=== PATIENT | female | born 1955 | race Caucasian/White ===

== ENCOUNTER 2020-03-28 15:32 | Outpatient (CLI) | payer MEDICARE, OTHER | END 2020-03-28 15:33 | disposition home or self-care (01) | LOC: COV 15:32 | PROVIDERS: ATTEND Family Medicine | DX: R50.9 Fever, unspecified (principal); M79.10 Myalgia, unspecified site; R53.83 Other fatigue; J02.9 Acute pharyngitis, unspecified; R11.2 Nausea with vomiting, unspecified; Z20.828 Contact with and (suspected) exposure to other viral communicable diseases ==

== ENCOUNTER 2021-07-10 05:36 | Outpatient (CLI) | payer MEDICARE, OTHER | END 2021-07-10 05:37 | disposition critical access hospital (66) | LOC: EMS 05:36 | DX: R10.31 Right lower quadrant pain (principal); R11.0 Nausea | CPT/HCPCS: A0425; A0427 ==

== ENCOUNTER 2021-07-10 06:18 | Day surgery (SDC) | payer MEDICARE, OTHER ==
[2021-07-10] MEDS ORDERED: KETOROLAC 30 MG/ML VIAL IVP STA (06:45)
[2021-07-10] MEDS ORDERED: HYDROmorphone 1 MG/ML CARPUJECT IVP STA ×2 (06:45→07:14)
[2021-07-10] MEDS ORDERED: SODIUM CHLORIDE 0.9% 1,000 ML IV STA (06:45)
--- NOTE | 2021-07-10 07:19 | ED Physician Documentation ---
PD HPI ABD PAIN - Stated complaint Stated Complaint: HERNIA - Chief complaint Chief Complaint: Abd Pain - History obtained from History obtained from: Patient - History of Present Illness Timing - onset: How many hours ago (3), Today Timing - duration: Hours (3) Timing - details: Abrupt onset, Still present Quality: Cramping, Aching, Pain Location: RLQ (right inguinal area with hernia mass that is hard and tender.) Improved by: No: Laying still Worsened by: Moving Associated symptoms: Nausea, Vomiting. No: Fever, Diarrhea, Constipation, Dysuria Similar symptoms before: Has not had sx before (She has had the hernia for a while and states it will push out at times and she can reduce it without discomfort. She has not had it hard and painful like this before.) Recently seen: Not recently seen Review of Systems Constitutional: denies: Fever, Chills Nose: denies: Rhinorrhea / runny nose, Congestion Throat: denies: Sore throat Cardiac: denies: Chest pain / pressure Respiratory: denies: Cough GI: reports: Abdominal Pain (just the past 3 hours). denies: Constipation, Diarrhea, Bloody / black stool : denies: Dysuria Musculoskeletal: denies: Back pain, Extremity swelling PD PAST MEDICAL HISTORY - Past Medical History Past Medical History: Yes Cardiovascular: Hypertension, High cholesterol Respiratory: Asthma, Pneumonia Endocrine/Autoimmune: Other GI: Hiatal hernia, Colon polyps, Chronic constipation, Other (right inguinal hernia awhile, and has appt with PMD for referral to surgery.) HEENT: Dental implants Musculoskeletal: Rheumatoid arthritis, Osteopenia, Fatigue Derm: Eczema - Past Surgical History Past Surgical History: Yes General: Cholecystectomy, Appendectomy, Colonoscopy - Present Medications Home Medications: Ambulatory Orders Medication Instructions Recorded Confirmed Albuterol Sulf [Ventolin Hfa 2 puffs INH Q4H PRN 06/12/16 07/10/21 Inhaler] Aspirin 81 mg PO DAILY 06/12/16 07/10/21 lisinopriL [Lisinopril] 10 mg PO DAILY 06/12/16 07/10/21 Docusate Sodium 100Mg Capsule 200 mg PO DAILY #30 cap 07/10/21 [Colace 100Mg Capsule] Ondansetron Odt [Zofran Odt] 4 mg TL Q6H PRN #10 tablet 07/10/21 oxyCODONE [Roxicodone] 5 mg PO Q4-6H PRN #14 tablet 07/10/21 - Allergies Allergies/Adverse Reactions: Allergies Allergy/AdvReac Type Severity Reaction Status Date / Time egg Allergy Severe Anaphylaxis Verified 07/10/21 11:44 - Social History Does the pt smoke?: No Smoking Status: Never smoker PD ED PE NORMAL - Vitals Vital signs reviewed: Yes - General General: Alert and oriented X 3, Well developed/nourished, Other (appears in pain from abdomen. ) - Cardiac Cardiac: RRR, No murmur - Respiratory Respiratory: Clear bilaterally - Abdomen Abdomen: Soft, No organomegaly, Other (tender with firm 4-5 cm sized mass right inguinal area. No redness nor sores. Mass is moveable some with origin in inguinal area. It does not decompress with firm pressure. ). No: Normal bowel sounds (increased diffusely. Abdomen not distended. ) - Female Female : Deferred - Rectal Rectal: Deferred - Back Back: No CVA TTP - Derm Derm: Normal color, Warm and dry - Extremities Extremities: No tenderness to palpate, Normal ROM s pain, No edema, No calf tenderness / cord - Neuro Neuro: Alert and oriented X 3, No motor deficit, Normal speech Results - Vitals Vitals: Vital Signs - 24 hr 07/10/21 07/10/21 07/10/21 06:25 07:34 09:00 Temperature 36.1 C L 36.2 C L Heart Rate 80 66 95 Respiratory 16 16 18 Rate Blood Pressure 140/73 H 133/74 H 116/60 O2 Saturation 96 96 95 07/10/21 07/10/21 07/10/21 11:31 11:35 11:40 Temperature 37.3 C 37.3 C 37.4 C Heart Rate 76 97 96 Respiratory 18 22 16 Rate Blood Pressure 138/78 H 112/58 L 125/81 H O2 Saturation 100 100 100 07/10/21 07/10/21 07/10/21 11:45 11:53 11:55 Temperature 37.0 C 37.0 C 37.0 C Heart Rate 102 H 89 89 Respiratory 27 H 15 15 Rate Blood Pressure 132/83 H 143/83 H 143/83 H O2 Saturation 96 99 99 07/10/21 07/10/21 07/10/21 12:05 12:35 13:10 Temperature 37 C 37 C 37.4 C Heart Rate 92 88 96 Respiratory 20 22 16 Rate Blood Pressure 116/92 H 131/75 H 129/76 O2 Saturation 96 96 96 07/10/21 07/10/21 07/10/21 13:30 14:00 15:25 Temperature 37.4 C 37.4 C 37.1 C Heart Rate 95 94 98 Respiratory 18 18 18 Rate Blood Pressure 143/85 H 138/86 H 154/79 H O2 Saturation 96 96 97 Oxygen O2 Source Room air - Labs Labs: Laboratory Tests 07/10/21 07/10/21 07:23 07:23 WBC 15.8 H RBC 4.80 Hgb 14.8 Hct 44.7 MCV 93.1 MCH 30.8 MCHC 33.1 RDW 12.0 Plt Count 249 MPV 8.8 Neut # (Auto) 14.6 H Lymph # (Auto) 0.6 L [place] # (Auto) 0.4 Eos # (Auto) 0.1 Baso # (Auto) 0.1 Absolute Nucleated RBC 0.00 Nucleated RBC % 0.0 Sodium 139 Potassium 4.1 Chloride 102 Carbon Dioxide 28 Anion Gap 9.0 BUN 17 Creatinine 0.6 Estimated GFR (MDRD) 100 Glucose 134 H Calcium 9.8 Total Bilirubin 0.7 AST 18 ALT 14 Alkaline Phosphatase 60 Total Protein 7.0 Albumin 3.9 Globulin 3.1 Albumin/Globulin Ratio 1.3 Lipase 29 PD MEDICAL DECISION MAKING - ED course Complexity details: considered differential (Clinically an incarcerated hernia with associated vomiting. Her abdomen is not distended feeling so may not necessarily be bowel obstruction 2. It is tender and not reducible after pain medicine. Consulted Dr. Alvarez, office coordinator receptionist for surgery.), d/w patient, d/w retirement sales consultant (Dr. Zhao to see in the ER.) ED course: I attempted reduction after IV pain medication and could not feel the mass even start to feel decompress. Consulted surgery. Departure - Departure Disposition: ED Transfer to [facility] Clinical Impression: Incarcerated inguinal hernia, unilateral, Vomiting Inguinal pain Qualifiers: Laterality: right Qualified Code(s): R10.31 - Right lower quadrant pain Condition: Stable Record reviewed to determine appropriate education?: Yes Discharge Date/Time: 07/10/21 10:30
[2021-07-10 07:41] LABS: BASOPHILS # (AUTO) 0.1 10^3/uL (0.0-0.1); BASOPHILS % (AUTO) 0.4 %; EOSINOPHILS # (AUTO) 0.1 10^3/uL (0.0-0.7); EOSINOPHILS % (AUTO) 0.3 %; HCT - HEMATOCRIT 44.7 % (37.0-47.0); HGB - HEMOGLOBIN 14.8 g/dL (12.0-16.0); LYMPHOCYTES # (AUTO) 0.6 10^3/uL (1.5-3.5); LYMPHOCYTES % (AUTO) 4.1 %; MEAN CORPUSCULAR HEMOGLOBIN 30.8 pg (27.0-31.0); MEAN CORPUSCULAR HGB CONC 33.1 g/dL (32.0-36.0); MEAN CORPUSCULAR VOLUME 93.1 fL (81.0-99.0); MEAN PLATELET VOLUME 8.8 fL (7.9-10.8); MONOCYTES # (AUTO) 0.4 10^3/uL (0.0-1.0); MONOCYTES % (AUTO) 2.3 %; NEUTROPHILS # (AUTO) 14.6 10^3/uL (1.5-6.6); NEUTROPHILS % (AUTO) 92.3 %; PLT - PLATELET COUNT 249 10^3/uL (130-450); WHITE BLOOD COUNT 15.8 x10^3/uL (4.8-10.8)
[2021-07-10 07:47] LABS: ALBUMIN 3.9 g/dL (3.2-5.5); ALBUMIN/GLOBULIN RATIO 1.3 (1.0-2.2); BILIRUBIN,TOTAL 0.7 mg/dL (0.2-1.0); CALCIUM 9.8 mg/dL (8.5-10.3); CREATININE 0.6 mg/dL (0.4-1.0); POTASSIUM 4.1 mmol/L (3.5-5.0)
--- NOTE | 2021-07-10 09:37 | Ultrasound Report ---
PROCEDURE: Abdomen Limited INDICATIONS: RLQ hernia contains bowel? TECHNIQUE: Real-time focused scanning was performed of the abdomen, with image documentation. COMPARISON: None. FINDINGS: A right lower quadrant, bowel containing hernia is seen, which is nonreducible. The fascia l defect measures approximately 17.4 x 3.5 x 7.1 cm. IMPRESSION: 1. Nonreducible right lower quadrant hernia as detailed above. Reviewed by: Tony Rodriguez MD on 07/10/2021 9:35 AM [facility] Approved by: Tony Rodriguez MD on 07/10/2021 9:35 AM [facility] Station ID: [id number]
--- NOTE | 2021-07-10 09:50 | ANESTHESIA ---
Pre-Anesthesia VS, & Labs - Diagnosis Right inguinal Incarcerated hernia - Procedure right inguinal hernia repair Vital Signs: Temp Pulse Resp BP Pulse Ox 36.2 C L 95 18 116/60 95 07/10/21 07:34 07/10/21 09:00 07/10/21 09:00 07/10/21 09:00 07/10/21 09:00 Height: 5 ft 3 in Weight (kg): 73.936 kg Body Mass Index: 28.8 BMI Classification: Overweight - NPO Last Fluid Intake: Coffee with cream 0430 - Is Patient ?: No - Lab Results Current Lab Results: Laboratory Tests 07/10/21 07:23: Sodium 139, Potassium 4.1, Chloride 102, Carbon Dioxide 28, Anion Gap 9.0, BUN 17, Creatinine 0.6, Estimated GFR (MDRD) 100, Glucose 134 H, Calcium 9.8, Total Bilirubin 0.7, AST 18, ALT 14, Alkaline Phosphatase 60, Total Protein 7.0, Albumin 3.9, Globulin 3.1, Albumin/Globulin Ratio 1.3, Lipase 29 07/10/21 07:23: WBC 15.8 H, RBC 4.80, Hgb 14.8, Hct 44.7, MCV 93.1, MCH 30.8, MCHC 33.1, RDW 12.0, Plt Count 249, MPV 8.8, Neut # (Auto) 14.6 H, Lymph # (Auto) 0.6 L, [place] # (Auto) 0.4, Eos # (Auto) 0.1, Baso # (Auto) 0.1, Absolute Nucleated RBC 0.00, Nucleated RBC % 0.0 Lab results reviewed: Yes Fish Bones: 07/10/21 07:23 07/10/21 07:23 Home Medications and Allergies Active Medications Sodium Chloride (Normal Saline 0.9%) 1,000 mls @ 250 mls/hr IV .Q4H STA Stop: 07/10/21 10:44 Last Admin: 07/10/21 06:57 Dose: 250 mls/hr Documented by: Albuterol Sulf [Ventolin Hfa Inhaler] 2 puffs INH Q4H PRN 06/12/16 Aspirin 81 mg PO DAILY 06/12/16 lisinopriL [Lisinopril] 10 mg PO DAILY 11/24/16 Allergies/Adverse Reactions: Allergies Allergy/AdvReac Type Severity Reaction Status Date / Time eggs Allergy Anaphylaxis Uncoded 06/12/16 19:15 Anes History & Medical History - Anesthetic History Anesthesia Complications: reports: No previous complications - Medical History Cardiovascular: reports: Hypertension, High cholesterol Pulmonary: reports: Asthma, Pneumonia Gastrointestinal: reports: Hiatal hernia, Colon polyps, Chronic constipation, Other (right inguinal hernia awhile, and has appt with PMD for referral to surgery.) Urinary: reports: None, Other (recent UTI) Neuro: reports: None Musculoskeletal: reports: Rheumatoid arthritis, Osteopenia, Fatigue Endocrine/Autoimmune: reports: Other Blood Disorders: reports: Anemia Skin: reports: Eczema Smoking Status: Never smoker Psychosocial: reports: Alcohol (Glass of wine 3 times per week) History of Cancer?: No - Surgical History General: reports: Cholecystectomy, Appendectomy, Colonoscopy Exam General: Alert, Oriented x3, Cooperative, No acute distress Dental: Other (several missing molars, needs root canal.) Mouth Openin Fingerbreadth Mallampati classification: III Thyromental Distance: 4-6 cm Mental/Cognitive Status: Alert/Oriented X3, Normal for patient Plan Anesthesia Type: General (RSI) Consent for Procedure(s) Verified and Reviewed: Yes Code Status: Attempt Resuscitation ASA classification: 2-Mild systemic disease Is this case an emergency?: Yes
[2021-07-10] MEDS ORDERED: HYDROmorphone 0.5 MG/0.5 ML SYRINGE IVP PRN ×2 (09:52→11:51)
[2021-07-10] MEDS ORDERED: fentaNYL 100 MCG/2 ML VIAL IVP PRN ×2 (09:52→11:51)
[2021-07-10] MEDS ORDERED: ATROPINE ABBOJECT 1 MG/10 ML SYRINGE IVP PRN ×2 (09:52→11:51)
[2021-07-10] MEDS ORDERED: NALOXONE 0.4 MG/ML VIAL IVP PRN ×2 (09:52→11:51)
[2021-07-10] MEDS ORDERED: MORPHINE 2 MG/ML CARPUJECT IVP PRN ×2 (09:52→11:51)
[2021-07-10] MEDS ORDERED: ONDANSETRON 4 MG/2 ML VIAL IVP PRN ×3 (09:52→11:51)
[2021-07-10] MEDS ORDERED: LACTATED RINGERS 1,000 ML IV SCH ×2 (10:00→11:51)
--- NOTE | 2021-07-10 10:24 | HISTORY & PHYSICAL EXAMINATION ---
HPI - Admitted From Admitted from: ED - History Obtained From History obtained from: Patient Exam limitations: No limitations - History of Present Illness Pain/Problem Location Description: Right lower quadrant Severity at the worst: reports: Moderate Pain Quality: reports: Sharp, Aching, Cramping Context-Pain started w/: reports: Rest Timing: reports: Abrupt onset Duration: reports: Hours: (Started at 3 AM this morning. It awoke her from sleep.) Improved with: reports: Rest Worsened by: reports: Exertion, Movement, Palpation Associated symptoms: reports: Nausea, Vomiting HPI Comment/Other: Very pleasant 65-year-old lady who has a history of a known right inguinal hernia. She had seen her PCP and was awaiting referral for surgical consultation. She says that it has not been incarcerated before. She was in her usual state of health when she awoke this morning at 3 AM with an acute pain in her right groin. She did everything that she knew to do to relieve the pain and with no luck, she presented to the emergency room. She was seen and evaluated there by Dr. Recio and found to have an incarcerated hernia. She was given sedation medications and multiple attempts were made to reduce the hernia with no success. 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 She lives locally on the [address]. She lives alone but she has good support from her daughter who lives close by. PMH/PSH - Past Medical History Cardiovascular: positive: Hypertension, High cholesterol Respiratory: positive: Asthma, Pneumonia Neuro: positive: None Endocrine/Autoimmune: positive: Other GI: positive: Hiatal hernia, Colon polyps, Chronic constipation, Other (right inguinal hernia awhile, and has appt with PMD for referral to surgery.) : positive: None, Other (recent UTI) HEENT: positive: Dental implants Musculoskeletal: positive: Rheumatoid arthritis, Osteopenia, Fatigue Derm: positive: Eczema MRSA Hx?: No - Past Surgical History General: positive: Cholecystectomy, Appendectomy, Colonoscopy Social & Family Hx - Living Situation Living Arrangement: At home Living Situation: Alone - Social History Does the pt smoke?: No Smoking Status: Never smoker Meds/Allgy - Home Medications Home Medications: Ambulatory Orders Medication Instructions Recorded Confirmed Albuterol Sulf [Ventolin Hfa 2 puffs INH Q4H PRN 06/12/16 07/10/21 Inhaler] Aspirin 81 mg PO DAILY 06/12/16 07/10/21 lisinopriL [Lisinopril] 10 mg PO DAILY 06/12/16 07/10/21 - Allergies Allergies/Adverse Reactions: Allergies Allergy/AdvReac Type Severity Reaction Status Date / Time eggs Allergy Anaphylaxis Uncoded 06/12/16 19:15 Review of Systems - Gastrointestinal Gastrointestinal: reports: Abdominal pain, Nausea, Vomiting - Genitourinary Genitourinary: reports: Urgency - All Other Systems All Other Systems: reports: Reviewed and negative Exam - Vital Signs Reviewed Vital Signs: Yes Vital Signs: Vital Signs x48h Temp Pulse Resp BP Pulse Ox 07/10/21 09:00 95 18 116/60 95 07/10/21 07:34 36.2 C L 66 16 133/74 H 96 07/10/21 06:25 36.1 C L 80 16 140/73 H 96 - Physical Exam General Appearance: positive: Alert, Mild distress Eyes Bilateral: positive: Normal inspection, PERRL, EOMI ENT: positive: Pharynx nml Neck: positive: Nml inspection Respiratory: positive: Chest non-tender, No respiratory distress, Breath sounds nml Cardiovascular: positive: Regular rate & rhythm, No murmur Peripheral Pulses: positive: 1+ Abdomen: positive: Tenderness, Other (Multiple healed incisions. There is a visible and palpable hernia mass in the right groin right over the pubic tubercle medially. This is tender and nonreducible. There is no erythema of the overlying skin. The patient does feel the need to urinate when any pressure is applied to the area.) Neurologic/Psychiatric: positive: Oriented x3 Results - Lab Results Fish Bones: 07/10/21 07:23 07/10/21 07:23 Other Lab Results: Lab Results x24hrs 07/10/21 07/10/21 Range/Units 07:23 07:23 WBC 15.8 H (4.8-10.8) x10^3/uL RBC 4.80 (4.20-5.40) 10^6/uL Hgb 14.8 (12.0-16.0) g/dL Hct 44.7 (37.0-47.0) % MCV 93.1 (81.0-99.0) fL MCH 30.8 (27.0-31.0) pg MCHC 33.1 (32.0-36.0) g/dL RDW 12.0 (12.0-15.0) % Plt Count 249 (130-450) 10^3/uL MPV 8.8 (7.9-10.8) fL Neut # (Auto) 14.6 H (1.5-6.6) 10^3/uL Lymph # (Auto) 0.6 L (1.5-3.5) 10^3/uL [place] # (Auto) 0.4 (0.0-1.0) 10^3/uL Eos # (Auto) 0.1 (0.0-0.7) 10^3/uL Baso # (Auto) 0.1 (0.0-0.1) 10^3/uL Absolute Nucleated RBC 0.00 x10^3/uL Nucleated RBC % 0.0 /100WBC Sodium 139 (135-145) mmol/L Potassium 4.1 (3.5-5.0) mmol/L Chloride 102 (101-111) mmol/L Carbon Dioxide 28 (21-32) mmol/L Anion Gap 9.0 (6-13) BUN 17 (6-20) mg/dL Creatinine 0.6 (0.4-1.0) mg/dL Estimated GFR (MDRD) 100 (>89) Glucose 134 H (70-100) mg/dL Calcium 9.8 (8.5-10.3) mg/dL Total Bilirubin 0.7 (0.2-1.0) mg/dL AST 18 (10-42) IU/L ALT 14 (10-60) IU/L Alkaline Phosphatase 60 (42-121) IU/L Total Protein 7.0 (6.7-8.2) g/dL Albumin 3.9 (3.2-5.5) g/dL Globulin 3.1 (2.1-4.2) g/dL Albumin/Globulin Ratio 1.3 (1.0-2.2) Lipase 29 (22-51) U/L - Diagnostic Imaging Results Diagnostic Imaging Results Comments: Findings are consistent with an incarcerated right inguinal hernia. It is im possible to tell from the ultrasound if it contains bowel but clinically, with the associated nausea vomiting and elevated white count, it is highly likely that it does contain small bowel. Impression/Plan - Problem List Problem List: Incarcerated right inguinal hernia with evidence of bowel obstruction. I have recommended immediate transfer to the operating room for urgent/emergent right inguinal hernia repair with indicated procedures. Hopefully we will be able to reduce this hernia through a right lower quadrant incision and not need to make a midline. I would like to be able to let her go home today if the surgery goes as planned. She understands it there is a risk of infection bleeding perforation damage to something else in the area a risk for more surgery in the future nausea vomiting stroke and heart attack. After careful consideration of all of these risks, the patient is expressed a desire to proceed.
[2021-07-10] MEDS ORDERED: LIDOCAINE 2%-EPI 1:100000 20 ML MDV SUBQ ONE ×2 (10:56)
[2021-07-10] MEDS ORDERED: BUPIVACAINE 0.5% PF 10 ML VIAL IM ONE ×2 (10:57)
[2021-07-10] MEDS ORDERED: ceFAZolin 1 GM VIAL IR ONE (11:15)
--- NOTE | 2021-07-10 11:30 | OPERATIVE REPORT ---
Operative Report - General Procedure Date: 07/10/21 Planned Procedure: Repair of incarcerated right inguinal hernia with bowel obstruction Pre-Op Diagnosis: Incarcerated right inguinal hernia with bowel obstruction Procedure Performed: Repair of incarcerated right inguinal hernia with bowel obstruction Post Op Diagnosis: Incarcerated right inguinal hernia with bowel obstruction - Procedure Note Primary Surgeon: Cece Anesthesia Provider: MARCIA Pedersen Anesthesia Technique: General LMA Pathology: None IV Fluids (mL): 1,200 Estimated Blood Loss (mL): 5 Indications: bowel obstruction secondary to hernia Findings: Large direct inguinal hernia with incarcerated loops of viable small bowel Complications: None apparent - Other Other Information/Narrative: After obtaining informed consent, the patient is brought to the operating room and placed in the supine position on the operating table. Following successful induction of general endotracheal anesthesia, appropriate padding of all bony prominences, and placement of appropriate monitors, the abdomen was prepped and draped in the standard surgical fashion. A timeout was held per scope protocol. All elements of the surgical safety checklist were followed before, during, and after the procedure. We began the procedure by infiltrating a mixture of local anesthetics medial to the anterior superior iliac spine on the right. This was done to create an ileal inguinal nerve block. We then selected a site for an incision in the right lower quadrant just superior and lateral to the right pubic tubercle. This area was anesthetized with additional local anesthetic and an incision was created here.The incision was carried down through the skin and subcutaneous tissue to reveal the fascia of the external oblique aponeurosis. Retractor was placed and the aponeurosis was opened in direction of its fibers. The hernia sac was quite large and incarcerated in the suprapubic space in the right labia. With very careful retraction and lysis of adhesions, we were able to deliver the sac out of this area and into the field. The sac itself remained intact and contained multiple loops of small bowel and peritoneum. With additional dissection, we were able to gently place this back into the abdominal cavity and turned our attention to the repair. The bowel within the sac appeared viable and there was no visible necrosis, bruising, or hemorrhagic fluid. The sac was in the direct position. We elected to repair the hernia with a large Prolene hernia system mesh implant. This was dipped in Ancef containing solution and then deployed into the defect. The posterior leaflet was straightened and flattened in the preperitoneal space. The inferior aspect of the anterior leaflet was then sewn to Wm's ligament medially. Laterally it was tucked under the external beak aponeurosis. The wound was checked for hemostasis and irrigated with warm saline solution. It was aspirated free of all fluid and particulate matter. The extra oblique aponeurosis was then closed with a running locking Vicryl suture Adria's fascia was closed with Vicryl suture and Monocryl stitches were placed in the skin. All sponge, needle, and instrument counts were correct at the conclusion of the case. The patient was allowed awaken from anesthesia without difficulty and taken to the postanesthesia care unit in good condition.
[2021-07-10] MEDS ORDERED: IBUPROFEN 600 MG TABLET PO PRN (11:36)
[2021-07-10] MEDS ORDERED: oxyCODONE 5 MG TABLET PO PRN (11:36)
[2021-07-10] MEDS ORDERED: ACETAMINOPHEN 325 MG TABLET PO PRN (11:36)
[2021-07-10] MEDS ORDERED: LACTATED RINGERS 1,000 ML IV ONE (11:48)
[2021-07-10 15:27] VITALS: BP 154/79
--- NOTE | 2021-07-10 18:15 | ANESTHESIA POST OP EVALUATION ---
Anesthesia Post Eval - Post Anesthesia Eval Vitals: Last Vital Signs Temp 37.1 C 07/10/21 15:25 Pulse 98 07/10/21 15:25 Resp 18 07/10/21 15:25 BP 154/79 H 07/10/21 15:25 Pulse Ox 97 07/10/21 15:25 CV Function Including HR & BP: Stable Pain Control: Satisfactory Nausea & Vomiting: Negative Mental Status: Baseline Respiratory Status: Airway Patent Hydration Status: Satisfactory Anesthesia Complications: None
== END 2021-07-10 10:31 | disposition home or self-care (01) ==
LOC: EDUNIT# → SUPCPDRO 06:18 → ED 06:18 → SDS 10:30
PROVIDERS: ATTEND Surgery
DX: K40.30 Unilateral inguinal hernia, with obstruction, without gangrene, not specified as recurrent (principal)
CPT/HCPCS: 36415; 49507; 76705; 80053; 83690; 85025; 96374; 96375; 96376; 99284; 99285; C1781; J1170; J7120

== ENCOUNTER 2021-08-04 10:12 | Outpatient (CLI) | payer MEDICARE, OTHER ==
[2021-08-09] MEDS ORDERED: iohexoL-300 100 ML VIAL IVP ONE (05:58)
== END 2021-08-04 10:13 | disposition critical access hospital (66) ==
LOC: EMS 10:12
DX: R10.31 Right lower quadrant pain (principal); K62.5 Hemorrhage of anus and rectum
CPT/HCPCS: A0425; A0429

== ENCOUNTER 2021-08-04 10:50 | Inpatient (IN) | payer MEDICARE, OTHER ==
[2021-08-04] MEDS ORDERED: SODIUM CHLORIDE 0.9% 1,000 ML IV STA (11:01)
[2021-08-04] MEDS ORDERED: KETOROLAC 30 MG/ML VIAL IVP STA (11:02)
[2021-08-04] MEDS ORDERED: HYDROmorphone 0.5 MG/0.5 ML SYRINGE IVP STA ×2 (11:02→15:15)
--- NOTE | 2021-08-04 11:04 | ED Physician Documentation ---
PD HPI ABD PAIN - Stated complaint Stated Complaint: ABD PX - Chief complaint Chief Complaint: Abd Pain - History obtained from History obtained from: Patient - Additional information Additional information: The patient comes to the emergency department with chief complaint of sudden onset pop and pain in her right inguinal area after trying to push had a bowel movement. The patient states that she had an inguinal hernia repair on the right on July 10, 2021, and that she has seemed to be fine post-repair except that she has had ongoing issues with constipation. Patient states that she has had to push a lot to have a Bowel movement. The patient states that she is having some pain in her right inguinal area, but it's not excruciating. The incident of popping and pain happened around 9:00 this morning. She cannot tell if the mass is reducible or not. The patient denies any other symptoms or complaints at this time. No nausea or vomiting. Patient can pass gas. No fevers. Review of Systems Ten Systems: 10 systems reviewed and negative Constitutional: reports: Reviewed and negative Eyes: reports: Reviewed and negative Ears: reports: Reviewed and negative Nose: reports: Reviewed and negative Throat: reports: Reviewed and negative Cardiac: reports: Reviewed and negative Respiratory: reports: Reviewed and negative GI: reports: Reviewed and negative. denies: Nausea, Vomiting : reports: Reviewed and negative Skin: reports: Reviewed and negative Musculoskeletal: reports: Other (Mass, pain, right inguinal area.) Neurologic: reports: Reviewed and negative Psychiatric: reports: Reviewed and negative Endocrine: reports: Reviewed and negative Immunocompromised: reports: Reviewed and negative PD PAST MEDICAL HISTORY - Past Medical History Cardiovascular: Hypertension, High cholesterol Respiratory: Asthma, Pneumonia Neuro: None Endocrine/Autoimmune: Other GI: Hiatal hernia, Colon polyps, Chronic constipation, Other (right inguinal hernia awhile, and has appt with PMD for referral to surgery.) : None, Other (recent UTI) HEENT: Dental implants Musculoskeletal: Rheumatoid arthritis, Osteopenia, Fatigue Derm: Eczema - Past Surgical History Past Surgical History: Yes General: Cholecystectomy, Appendectomy, Colonoscopy - Present Medications Home Medications: Ambulatory Orders Medication Instructions Recorded Confirmed Albuterol Sulf [Ventolin Hfa 2 puffs INH Q4H PRN 06/12/16 08/04/21 Inhaler] Aspirin 81 mg PO DAILY 06/12/16 08/04/21 lisinopriL [Lisinopril] 20 mg PO DAILY 06/12/16 08/04/21 polyethylene glycoL 3350 [Miralax] 17 gm PO DAILY 08/04/21 08/04/21 - Allergies Allergies/Adverse Reactions: Allergies Allergy/AdvReac Type Severity Reaction Status Date / Time egg Allergy Severe Anaphylaxis Verified 08/04/21 10:57 - Social History Does the pt smoke?: No Smoking Status: Never smoker PD ED PE NORMAL - Vitals Vital signs reviewed: Yes - General General: Alert and oriented X 3, No acute distress - HEENT HEENT: PERRL - Cardiac Cardiac: RRR, No murmur - Respiratory Respiratory: Clear bilaterally - Abdomen Abdomen: Soft, Non distended, Other (Mild tenderness, right pelvis) - Female Female : Other (Mobile, minimally tender, right inguinal mass that extends to the right mons pubis. 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, Normal speech - Psych Psych: Normal mood, Normal affect Results - Vitals Vitals: Vital Signs - 24 hr 08/04/21 08/04/21 08/04/21 10:54 11:23 12:38 Temperature 37.0 C 37.1 C Heart Rate 84 109 H 115 H Respiratory 16 20 18 Rate Blood Pressure 131/82 H 146/76 H 117/92 H O2 Saturation 93 93 94 08/04/21 14:40 Temperature Heart Rate 92 Respiratory 18 Rate Blood Pressure 106/60 O2 Saturation 95 Oxygen O2 Source Room air - Labs Labs: Laboratory Tests 08/04/21 08/04/21 08/04/21 11:10 11:10 13:20 WBC 10.2 RBC 4.95 Hgb 15.3 Hct 45.2 MCV 91.3 MCH 30.9 MCHC 33.8 RDW 11.7 L Plt Count 470 H MPV 8.5 Neut # (Auto) Not Reportable Lymph # (Auto) Not Reportable Dundy # (Auto) Not Reportable Eos # (Auto) Not Reportable Baso # (Auto) Not Reportable Absolute Nucleated RBC Not Reportable Total Counted 100 Band Neuts % (Manual) 3 Abnorm Lymph % (Manual) 0 Nucleated RBC % Not Reportable Neutrophils # (Manual) 9.0 H Lymphocytes # (Manual) 0.8 L Monocytes # (Manual) 0.4 Eosinophils # (Manual) 0.0 Basophils # (Manual) 0.0 Differential Comment MANUAL DIFFERENTIAL WBC Morphology 2+ TOXIC GRANULATION Platelet Estimate NORMAL (130-450,000) RBC Morph Micro Appear NORMAL APPEARANCE Sodium 137 Potassium 3.3 L Chloride 95 L Carbon Dioxide 28 Anion Gap 14.0 H BUN 11 Creatinine 0.7 Estimated GFR (MDRD) 83 L Glucose 175 H Calcium 9.9 Total Bilirubin 1.0 AST 24 ALT 29 Alkaline Phosphatase 105 Total Protein 7.1 Albumin 3.5 Globulin 3.6 Albumin/Globulin Ratio 1.0 Lipase 18 L Nasal Adenovirus (PCR) NOT DETECTED Nasal B. parapertussis DNA (PCR) NOT DETECTED Nasal Coronavir 229E PCR NOT DETECTED Nasal Coronavir HKU1 PCR NOT DETECTED Nasal Coronavir NL63 PCR NOT DETECTED Nasal Coronavir OC43 PCR NOT DETECTED Nasal Enterovir/Rhinovir PCR NOT DETECTED Nasal Influenza B PCR NOT DETECTED Nasal Influenza A PCR NOT DETECTED Nasal Parainfluen 1 PCR NOT DETECTED Nasal Parainfluen 2 PCR NOT DETECTED Nasal Parainfluen 3 PCR NOT DETECTED Nasal Parainfluen 4 PCR NOT DETECTED Nasal RSV (PCR) NOT DETECTED Nasal B.pertussis DNA PCR NOT DETECTED Nasal C.pneumoniae (PCR) NOT DETECTED Elliot Human Metapneumo PCR NOT DETECTED Nasal M.pneumoniae (PCR) NOT DETECTED Nasal SARS-CoV-2 (PCR) NOT DETECTED - Rads (name of study) Ct abd pelvis Radiology: Final report received, EMP read indepedently, See rad report (BL inginal hernias, small free air in RUQ, suggestive of perforated viscus) PD MEDICAL DECISION MAKING - ED course Complexity details: reviewed results, re-evaluated patient, considered differential, d/w patient ED course: Patient was worked up with labs and treated symptomatically. Following this, she was sent for contrast CT of the abdomen and pelvis, Which showed bilateral inguinal hernias, as well as a tiny bubble of free air in the right upper quadrant. I discussed the case with Dr. Zhao, who was not only on-call for surgery, but who had the patient's hernia repair, and she has viewed the CT and will evaluate the patient for admission. After Dr. Zhao's eval, I was asked to try to disimpact the pt. I did attempt to do this, but despite full insertion of my finger into her rectum, I was unable to reach any impacted stool. Departure - Departure Disposition: [facility] DC/Xfer Clinical Impression: Perforated abdominal viscus Bilateral inguinal hernia Qualifiers: Obstruction and gangrene presence: without obstruction or gangrene Recurrence: recurrent Qualified Code(s): K40.21 - Bilateral inguinal hernia, without obstruction or gangrene, recurrent Condition: Serious Discharge Date/Time: 08/04/21 17:33
[2021-08-04 11:17] LABS: BASOPHILS % (AUTO) 0.7 %; EOSINOPHILS % (AUTO) 22.6 %; HCT - HEMATOCRIT 45.2 % (37.0-47.0); HGB - HEMOGLOBIN 15.3 g/dL (12.0-16.0); LYMPHOCYTES % (AUTO) 4.5 %; MEAN CORPUSCULAR HEMOGLOBIN 30.9 pg (27.0-31.0); MEAN CORPUSCULAR HGB CONC 33.8 g/dL (32.0-36.0); MEAN CORPUSCULAR VOLUME 91.3 fL (81.0-99.0); MEAN PLATELET VOLUME 8.5 fL (7.9-10.8); MONOCYTES % (AUTO) 1.5 %; PLT - PLATELET COUNT 470 10^3/uL (130-450); RED BLOOD COUNT 4.95 10^6/uL (4.20-5.40); RED CELL DISTRIBUTION WIDTH 11.7 % (12.0-15.0); WHITE BLOOD COUNT 10.2 x10^3/uL (4.8-10.8)
[2021-08-04 11:21] LABS: ABNORMAL LYMPHS % (MANUAL) 0 %
[2021-08-04 11:31] LABS: ALBUMIN 3.5 g/dL (3.2-5.5); CALCIUM 9.9 mg/dL (8.5-10.3); CREATININE 0.7 mg/dL (0.4-1.0); POTASSIUM 3.3 mmol/L (3.5-5.0); TOTAL PROTEIN 7.1 g/dL (6.7-8.2)
[2021-08-04 11:48] LABS: BAND NEUTROPHILS % (MANUAL) 3 %; LYMPHOCYTES # (MANUAL) 0.8 10^3/uL (1.5-3.5); LYMPHOCYTES % (MANUAL) 8 %; MONOCYTES # (MANUAL) 0.4 10^3/uL (0.0-1.0); PLATELET ESTIMATE, MANUAL NORMAL (130-450,000) (NORMAL); RBC MORPHOLOGY (MULTIPLE) NORMAL APPEARANCE (NORMAL)
[2021-08-04 11:49] LABS: WBC MORPHOLOGY (MULTIPLE) 2+ TOXIC GRANULATION (NORMAL)
[2021-08-04 11:50] LABS: DIFFERENTIAL COMMENT MANUAL DIFFERENTIAL
[2021-08-04] MEDS ORDERED: iohexoL-300 100 ML VIAL ONE (12:20)
[2021-08-04] MEDS ORDERED: iohexoL-300 100 ML VIAL IVP ONE (12:43)
--- NOTE | 2021-08-04 12:52 | CT Report ---
PROCEDURE: Abdomen/Pelvis W INDICATIONS: hernia recurrence CONTRAST: IV CONTRAST: Isovue 300 ml: 100 PO CONTRAST: *NO PO CONTRAST TECHNIQUE: After the administration of IV contrast, 5 mm thick sections acquired from the diaphragms to the symp hysis. 5 mm thick coronal and sagittal reformats were acquired. For radiation dose reduction, the f ollowing was used: automated exposure control, adjustment of mA and/or kV according to patient size. COMPARISON: Correlation is made with prior abdominal ultrasound, 07/10/2021. FINDINGS: Image quality: Excellent. ABDOMEN: Lung bases: Lung bases are clear. Heart size is normal. There is a large hiatal hernia. Solid organs: The liver demonstrates normal size and overall normal appearance. There is a water dens ity cyst along the inferior aspect of the right lobe of the liver that measures 1.5 cm. Gallbladder h as been removed Biliary system is non dilated. Pancreas enhances normally. No adrenal nodules. Ki dneys demonstrate normal size and enhancement, without hydronephrosis. Peritoneum and bowel: No dilated loops of small bowel are seen. Prominent stool can be seen within th e colon. Generalized bowel wall thickening can be seen of the colon. There is mild ascites seen. Ther e is a small amount of free intraperitoneal gas seen adjacent to the liver. Nodes and vessels: No retroperitoneal or mesenteric adenopathy by size criteria. Aorta and inferior vena cava are normal in size. Miscellaneous: There is a fat-containing periumbilical hernia. PELVIS: Genitourinary: Bladder wall thickness is normal. The uterus demonstrates an unremarkable appearance for age. No adnexal masses are seen. Miscellaneous: There is a left inguinal hernia seen, which contains a minimal amount of small bowel. No regional bowel dilatation can be seen. On the right, there is fluid seen within the right inguina l canal. Bones: No suspicious bony lesions. No acute appearing vertebral body compression fractures. There i s a minimal, chronic appearing compression deformity seen at the superior endplate of L4. Mild levoc onvex scoliotic curvature is seen. Focal L5-S1 degenerative change is seen. Milder degenerative santos ges are seen elsewhere. IMPRESSION: A small amount of free air is seen. This may be related to the patient's recent surgery 07/10/2021. However, please consider perforated viscus. There is a left inguinal hernia seen, which contains a small amount of nondilated bowel. No findings of small bowel obstruction can be seen. There is a prominent amount of stool seen within the colon, with moderate generalized wall thickening of the colon. Severe constipation is suspected. A small amount of ascites is seen. There is fluid seen within a right inguinal hernia. This is attributed to a recurrent hernia. Incidental note is made of: Large hiatal hernia Cholecystectomy Right liver cyst Fat-containing periumbilical hernia Levoconvex scoliotic curvature Focal L5-S1 degenerative change Note: Case discussed by telephone with Dr. Zhao at 11:49 AM [place] time on 08/04/2021. Reviewed by: Sergio Chang MD on 08/04/2021 11:50 AM [facility] Approved by: Sergio Chang MD on 08/04/2021 11:50 AM [facility] Station ID: [id number]
[2021-08-04] MEDS ORDERED: PIPERACILLIN/TAZOBACTAM 3.375 GM in SODIUM CHLORIDE 0.9% MINIBAG 100 ML IV STA (13:04)
[2021-08-04 14:17] LABS: B. PARAPERTUSSIS- RESP PCR PAN NOT DETECTED; B. PERTUSSIS- RESP PCR PANEL NOT DETECTED; C. PNEUMONIAE- RESP PCR PANEL NOT DETECTED; CORONAVIRUS 229E-RESP PCR NOT DETECTED; CORONAVIRUS HKU1-RESP PCR NOT DETECTED; CORONAVIRUS NL63-RESP PCR NOT DETECTED; CORONAVIRUS OC43-RESP PCR NOT DETECTED; HUMAN METAPNEUMOVIRUS NOT DETECTED; INFLUENZA A- RESP PCR PANEL NOT DETECTED; INFLUENZA B - RESP PCR PANEL NOT DETECTED; M. PNEUMONIAE- RESP PCR PANEL NOT DETECTED; PARAINFLUENZA VIRUS 1 NOT DETECTED; PARAINFLUENZA VIRUS 2 NOT DETECTED; PARAINFLUENZA VIRUS 3 NOT DETECTED; PARAINFLUENZA VIRUS 4 NOT DETECTED; RHINOVIRUS/ENTEROVIRUS NOT DETECTED; RSV- RESP PCR PANEL NOT DETECTED; SARS-CoV-2 -RESP PCR PANEL NOT DETECTED
[2021-08-04] MEDS: SODIUM CHLORIDE 0.9% 1,000 ML IV SCH (15:23)
--- NOTE | 2021-08-04 15:34 | HISTORY & PHYSICAL EXAMINATION ---
Chief Complaint - Chief Complaint Chief Complaint: Constipation, hernia recurrence History of Present Illness - Admitted From Admitted From:: ED - History Obtained From Records Reviewed: Old records, radiographic images, Provider's notes History obtained from: Patient and provider Exam Limitations: None - History of Present Illness HPI Comment/Other: Pleasant 66 year old lady I met 3 weeks ago when she presented to the ED with an incarcerated right inguinal hernia causing bowel obstruction. She had an uneventful repair but did not keep her post operative follow up appointment. She says she has been very constipated for the last several days. She took Miralax yesterday and is unable to tell me when the last normal bowel movement occurred. She says she has has just a few little bits out today. She was pushing very hard to have a bowel movement when she felt a pop associated with pain and a bulge in the right groin. This brought her to the ED. She says her groin is not hurting now but it was painful for a few minutes after the event. She is most concerned about the discomfort she feels from the constipation. She has dealt with constipation in the past but not to this degree. She says this is a new experience for her History - Past Medical History Cardiovascular: reports: Hypertension, High cholesterol Respiratory: reports: Asthma, Pneumonia Neuro: reports: None Endocrine/Autoimmune: reports: Other GI: reports: Hiatal hernia, Colon polyps, Chronic constipation, Other (right inguinal hernia awhile, and has appt with PMD for referral to surgery.) : reports: None, Other (recent UTI) HEENT: reports: Dental implants Psych: reports: None Musculoskeletal: reports: Rheumatoid arthritis, Osteopenia, Fatigue Derm: reports: Eczema MRSA Hx?: No - Past Surgical History General: reports: Cholecystectomy, Appendectomy, Colonoscopy - Family & Social History Living Situation: Alone Meds/Allgy - Home Medications Home Medications: Ambulatory Orders Medication Instructions Recorded Confirmed Albuterol Sulf [Ventolin Hfa 2 puffs INH Q4H PRN 06/12/16 08/04/21 Inhaler] Aspirin 81 mg PO DAILY 06/12/16 08/04/21 lisinopriL [Lisinopril] 20 mg PO DAILY 06/12/16 08/04/21 polyethylene glycoL 3350 [Miralax] 17 gm PO DAILY 08/04/21 08/04/21 - Allergies Allergies/Adverse Reactions: Allergies Allergy/AdvReac Type Severity Reaction Status Date / Time egg Allergy Severe Anaphylaxis Verified 08/04/21 10:57 Exam - Vital Signs Reviewed Vital Signs: Yes Vital Signs: Vital Signs x48h Temp Pulse Resp BP Pulse Ox 08/04/21 14:40 92 18 106/60 95 08/04/21 12:38 37.1 C 115 H 18 117/92 H 94 08/04/21 11:23 109 H 20 146/76 H 93 08/04/21 10:54 37.0 C 84 16 131/82 H 93 - Physical Exam General Appearance: positive: Alert, Mild distress Eyes Bilateral: positive: Normal inspection, PERRL ENT: positive: ENT inspection nml, Pharynx nml Neck: positive: Nml inspection Respiratory: positive: No respiratory distress, Breath sounds nml Cardiovascular: positive: Regular rate & rhythm Abdomen: positive: Nml bowel sounds, Other (Distended with diffuse mild tenerness to palpation. Active bowel sounds. Bilateral inguinal hernias as soft now and the right is easily reduced) Rectal: positive: Other (No stool in the rectal vault) Back: negative: CVA tenderness (R), CVA tenderness (L) Skin: positive: Color nml Neurologic/Psychiatric: positive: Oriented x3, CN's nml (2-12) Conclusion/Plan - Problem List (1) Bilateral inguinal hernia Conclusion/Plan: Both are reduced at this time and so repair is not urgent. May benefit from bilateral laparoscopic repair in the future. Qualifiers: Obstruction and gangrene presence: without obstruction or gangrene Recurrence: recurrent (2) Perforated abdominal viscus Conclusion/Plan: Admit for IV antibiotic and disimpaction as well as gentle cathartics to relieve constipation. Watchful waiting and will need to avoid enemas since we don't know the source of the air. Could be perforated diverticulitis or benign intraperitoneal air associated with Valsalva maneuver. The former is much more likely and greater risk. Conservative management and watchful waiting with pain control - Lab Results Fish Bones: 08/04/21 11:10 08/04/21 11:10 - Diagnostic Imaging Results Diagnostic Imaging Results: positive: Prelim report reviewed Diagnostic Imaging Results Comments: 1. Bilateral inguinal hernias - the right is recurrent after recent operation and contains an unobstructed loop of small bowel on CT but is soft and now reduced. The left does not contain bowel . 2. Free intraperitoneal air without evidence of peritonitis. Easily seen in the subdiaphragmatic space on the right. No obvious bowel inflammation or abscess 3. Severe constipation with heavy stool burden. Core Measures - Anticipated LOS I expect patient to be DC'd or transferred within 96 hours.: Yes
[2021-08-04] MEDS: SODIUM CHLORIDE FLUSH 0.9% 10 ML SYRINGE IVP SCH (18:23)
[2021-08-04] MEDS: PIPERACILLIN/TAZOBACTAM 3.375 GM in SODIUM CHLORIDE 0.9% MINIBAG 100 ML IV SCH (18:30)
[2021-08-04] MEDS: LACTULOSE 10 GM /15 ML UDC PO SCH (20:15)
[2021-08-04] MEDS: ACETAMINOPHEN 325 MG TABLET PO PRN (20:16)
[2021-08-05] MEDS: ACETAMINOPHEN 325 MG TABLET PO PRN ×5 (00:27→14:50)
[2021-08-05] MEDS: ALBUTEROL NEB 2.5 MG/3 ML INH PRN ×3 (00:27→23:57)
[2021-08-05] MEDS: SODIUM CHLORIDE 0.9% 1,000 ML IV SCH ×4 (00:32→16:16)
[2021-08-05] MEDS: PIPERACILLIN/TAZOBACTAM 3.375 GM in SODIUM CHLORIDE 0.9% MINIBAG 100 ML IV SCH ×4 (00:33→19:05)
[2021-08-05] MEDS: SODIUM CHLORIDE FLUSH 0.9% 10 ML SYRINGE IVP SCH ×3 (02:59→16:18)
[2021-08-05 05:40] LABS: BASOPHILS % (AUTO) 0.2 %; EOSINOPHILS % (AUTO) 0.3 %; HCT - HEMATOCRIT 47.3 % (37.0-47.0); HGB - HEMOGLOBIN 15.7 g/dL (12.0-16.0); LYMPHOCYTES % (AUTO) 6.2 %; MEAN CORPUSCULAR HGB CONC 33.2 g/dL (32.0-36.0); MEAN CORPUSCULAR VOLUME 90.4 fL (81.0-99.0); MONOCYTES % (AUTO) 2.4 %; NEUTROPHILS % (AUTO) 89.7 %; PLT - PLATELET COUNT 464 10^3/uL (130-450); RED BLOOD COUNT 5.23 10^6/uL (4.20-5.40); RED CELL DISTRIBUTION WIDTH 12.1 % (12.0-15.0); WHITE BLOOD COUNT 12.7 x10^3/uL (4.8-10.8)
[2021-08-05 05:51] LABS: ABNORMAL LYMPHS % (MANUAL) 0 %
[2021-08-05 06:01] LABS: CALCIUM 9.3 mg/dL (8.5-10.3); CREATININE 1.1 mg/dL (0.4-1.0)
[2021-08-05] MEDS: PANTOPRAZOLE 40 MG TABLET PO SCH (06:08)
[2021-08-05 06:11] LABS: BAND NEUTROPHILS % (MANUAL) 27 %; LYMPHOCYTES # (MANUAL) 0.8 10^3/uL (1.5-3.5); LYMPHOCYTES % (MANUAL) 6 %; METAMYELOCYTES % (MANUAL) 6 %; MONOCYTES # (MANUAL) 0.1 10^3/uL (0.0-1.0); MYELOCYTES % (MANUAL) 3 %; NEUTROPHILS # (MANUAL) 10.7 10^3/uL (1.5-6.6)
[2021-08-05 06:12] LABS: DIFFERENTIAL COMMENT MANUAL DIFFERENTIAL; PLATELET ESTIMATE, MANUAL INCREASED (>450,000) (NORMAL); PLATELET MORPHOLOGY NORMAL APPEARANCE (NORMAL); RBC MORPHOLOGY (MULTIPLE) NORMAL APPEARANCE (NORMAL); WBC MORPHOLOGY (MULTIPLE) NORMAL APPEARANCE (NORMAL)
[2021-08-05 06:24] LABS: POTASSIUM 2.5 mmol/L (3.5-5.0)
[2021-08-05] MEDS ORDERED: SODIUM CHLORIDE 0.9% 500 ML IV ONE (07:35)
[2021-08-05] MEDS ORDERED: lisinopriL 20 MG TABLET PO SCH (09:00)
[2021-08-05] MEDS: LACTULOSE 10 GM /15 ML UDC PO SCH ×2 (09:06→20:47)
[2021-08-05] MEDS: ENOXAPARIN 40 MG/0.4 ML SYRINGE SUBQ SCH (09:06)
[2021-08-05] MEDS: BISACODYL 10 MG SUPP PR SCH (09:07)
[2021-08-05] MEDS: ASPIRIN CHEW 81 MG TABLET PO SCH (09:07)
[2021-08-05] MEDS: POTASSIUM CHLOR 10 MEQ/100 ML 10 MEQ/100 ML BAG IV SCH ×6 (09:29→23:55)
[2021-08-05] MEDS ORDERED: SODIUM CHLORIDE 0.9% MINIBAG 100 ML IV ONE (12:09)
[2021-08-05] MEDS ORDERED: LACTATED RINGERS 1,000 ML IV ONE ×2 (14:36→16:29)
--- NOTE | 2021-08-05 16:11 | PROVIDER PROGRESS NOTE ---
Subjective - General Admit Date: 08/04/21 Procedure Date: 07/10/21 Post Op Days: 26 - Review of Systems Wound/Incisions: positive: Healing well - Other Other Information/Narrative: Na is feeling about the same this AM. No worse and no better. Did not have a bowel movement overnight but is having gurgling and cramping this morning. Low blood pressure this AM and urine output has been low as well. Objective - Patient Data Vital Signs: Vital Signs x48h Temp Pulse Pulse Resp BP BP Pulse Ox 08/05/21 16:05 36.4 C L 106 H 16 91/49 L 97 08/05/21 14:54 95/53 L 08/05/21 14:29 105 H 84/58 L 89/58 L 94 08/05/21 12:11 36.6 C 107 H 20 94/63 94 08/05/21 11:23 95/60 95/60 08/05/21 09:00 103/61 08/05/21 08:35 101 H 21 08/05/21 08:11 102 H 92/55 L 94 Weight: Weight 08/03/21 08/04/21 08/05/21 23:59 23:59 23:59 Weight (kg) 75 kg Intake & Output: Intake and Output Totals x24h 08/03/21 08/04/21 08/05/21 23:59 23:59 23:59 Intake Total 1200 3655.423 Output Total 427 Balance 1200 3228.423 - Lab Results Lab Results: 08/05/21 04:35 08/05/21 04:35 Other Lab Results: Lab Results x24hrs 08/05/21 08/05/21 Range/Units 04:35 04:35 WBC 12.7 H (4.8-10.8) x10^3/uL RBC 5.23 (4.20-5.40) 10^6/uL Hgb 15.7 (12.0-16.0) g/dL Hct 47.3 H (37.0-47.0) % MCV 90.4 (81.0-99.0) fL MCH 30.0 (27.0-31.0) pg MCHC 33.2 (32.0-36.0) g/dL RDW 12.1 (12.0-15.0) % Plt Count 464 H (130-450) 10^3/uL MPV 9.0 (7.9-10.8) fL Neut # (Auto) Not Reportable Lymph # (Auto) Not Reportable Glynn # (Auto) Not Reportable Eos # (Auto) Not Reportable Baso # (Auto) Not Reportable Absolute Nucleated RBC Not Reportable Total Counted 100 Band Neuts % (Manual) 27 H (0 - 10) % Abnorm Lymph % (Manual) 0 % Metamyelocytes % 6 H ( - 0) % Myelocytes % 3 H ( - 0) % Nucleated RBC % Not Reportable Neutrophils # (Manual) 10.7 H (1.5-6.6) 10^3/uL Lymphocytes # (Manual) 0.8 L (1.5-3.5) 10^3/uL Monocytes # (Manual) 0.1 (0.0-1.0) 10^3/uL Eosinophils # (Manual) 0.0 (0-0.7) 10^3/uL Basophils # (Manual) 0.0 (0-0.1) 10^3/uL Differential Comment MANUAL DIFFERENTIAL WBC Morphology NORMAL APPEARANCE (NORMAL) Platelet Estimate INCREASED (>450,000) (NORMAL) Platelet Morphology NORMAL APPEARANCE (NORMAL) RBC Morph Micro Appear NORMAL APPEARANCE (NORMAL) Sodium 135 (135-145) mmol/L Potassium 2.5 L* (3.5-5.0) mmol/L Chloride 98 L (101-111) mmol/L Carbon Dioxide 22 (21-32) mmol/L Anion Gap 15.0 H (6-13) BUN 21 H (6-20) mg/dL Creatinine 1.1 H (0.4-1.0) mg/dL Estimated GFR (MDRD) 50 L (>89) Glucose 185 H (70-100) mg/dL Calcium 9.3 (8.5-10.3) mg/dL - Current Medications Current Medications: Current Medications Generic Name Dose Route Start Last Admin Trade Name Freq PRN Reason Stop Dose Admin Acetaminophen 650 mg 08/04/21 14:01 08/05/21 14:50 Acetaminophen 325 Mg Tablet PO 650 mg Q4HR PRN Administration PAIN Albuterol 2.5 mg 08/04/21 17:26 08/05/21 09:00 Albuterol Neb 2.5 Mg/3 Ml INH 2.5 mg RTQ4H PRN Administration Wheezing Aspirin 81 mg 08/05/21 09:00 08/05/21 09:07 Aspirin Chew 81 Mg Tablet PO 81 mg DAILY INGA Administration Bisacodyl 10 mg 08/05/21 09:00 08/05/21 09:07 Bisacodyl [address] 10 mg DAILY INGA Administration Enoxaparin Sodium 40 mg 08/05/21 09:00 08/05/21 09:06 Enoxaparin 40 Mg/0.4 Ml Syringe SUBQ 40 mg DAILY INGA Administration Piperacillin Sod/Tazobactam 100 mls @ 200 mls/hr 08/04/21 18:00 08/05/21 13:18 Sod 3.375 gm/ Sodium Chloride IV Infused Q6HR INGA Infusion Sodium Chloride 1,000 mls @ 125 mls/hr 08/05/21 09:46 08/05/21 14:53 Normal Saline 0.9% IV 0 mls/hr .Q8H INGA Infusion Lactulose 10 gm 08/04/21 21:00 08/05/21 09:06 Lactulose 10 Gm /15 Ml Udc PO 10 gm BID INGA Administration Pantoprazole Sodium 40 mg 08/05/21 07:00 08/05/21 06:08 Pantoprazole 40 Mg Tablet PO 40 mg QDAC INGA Administration Sodium Chloride 10 ml 08/04/21 17:00 08/05/21 08:18 Sodium Chloride Flush 0.9% 10 Ml Syringe IVP 10 ml 0100,0900,1700 INGA Administration - Physical Exam Wound/Incisions: positive: Healing well Comments/Other: Lungs: clear bilaterally Abd: remains distended with active bowel sounds, very mildly diffusely tender ABX Reporting Has patient been on IV antibiotics over the past 48 hours?: Yes Impression/Plan - Problem List Problem List: Intra-abdominal free air with severe constipation. 1. Consult hospitalist for medical management of hypokalemia and fluids 2. Continue cathartics gently 3. Hold off on any definitive surgery until this issue is resolved. Further discussion as outpatient.
[2021-08-05 18:40] LABS: CREATININE 1.5 mg/dL (0.4-1.0); POTASSIUM 3.1 mmol/L (3.5-5.0)
--- NOTE | 2021-08-05 20:39 | CONSULTATION NOTE ---
Referring Provider Name of Referring Provider:: Dr Zhao Consult Date: 08/05/21 Chief Complaint - Chief Complaint Chief Complaint: Hypotension, Hypokalemia, perforated viscus History of Present Illness - Admitted From Admitted From:: ED - History Obtained From History obtained from: Chart review and the patient - History of Present Illness HPI Comment/Other: This is a 66-year-old white female with a history of rheumatoid arthritis, eczema, hypertension on Lisinopril, hyperlipidemia and asthma. One month ago she was here for small bowel obstruction caused by an incarcerated right inguinal hernia. She had repair of the right inguinal hernia and an uncomplicated recovery. At home she has been experiencing constipation. She presented to the ED this time after being on the toilet and pushing hard to have a bowel movement and she heard a pop and then had severe pain in the right groin area. In the ED she was found to have a recurrence of the right inguinal hernia with no incarceration. She also happens to have a left inguinal hernia. Both are reducible. Other findings on CT abd/pelvis were that of colonic wall thickening, marked stool in the colon consistent with constipation and free air under the diaphragm. The patient was admitted to the general surgery service to Dr. Zhao (who did her right inguinal hernia incarcerated hernia repair). The patient was started on IV fluids and IV Zosyn, a clear liquid diet and Lactulose for the constipation. Etiology of the intra-abdominal free air is unknown, concern of a perfiorated diverticulum. Since admission yesterday, she today has new hypotension and tachycardia; Blood pressure has been as low as 80s/50s and HR 105-113. She has received 2 L of lactated ringer bolus during this day and 4 potassium IV riders for replacement of potassium of 2.5. The General Surgeon is requesting the Hospitalist team for further management as consultants. Of note, she today has a new elevated WBC of 12.7 with 27% bands and new DONNIE with BUN/creat 31/1.5, whereas all of these labs were normal yesterday. She tested Covid neg. There has not been a repeat CT of the abdomen/pelvis. There is no chest x-ray or EKG from this admission done yet. I ordered an EKG and interpreted myself. EKG shows sinus tachycardia, rate 112, PACs, left atrial enlargement, poor R wave progression, prolonged QTc (490 msec). Since EKG from 06/12/2016, prior R wave progression is new and the QTC is prolonged now. A CXR was also done tonight that showed: Bibasilar atelectasis versus small infiltrates. Suggestion of trace bilateral pleural effusion. Free air seen under the right genia diaphragm, which was seen on previous CT of the abdomen. History - Past Medical History Cardiovascular: reports: Hypertension, High cholesterol Respiratory: reports: Asthma, Pneumonia Neuro: reports: None Endocrine/Autoimmune: reports: Other GI: reports: Hiatal hernia, Colon polyps, Chronic constipation, Other (Had right inguinal hernia for a while, had surg Jun 2021 when it was incarcerated.) : reports: None, Other (recent UTI) HEENT: reports: Dental implants Psych: reports: None Musculoskeletal: reports: Rheumatoid arthritis, Osteopenia, Fatigue Derm: reports: Eczema MRSA Hx?: No Other Past Medical History: rheumatoid arthritis wihout RA factor (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) per patient - Past Surgical History General: reports: Cholecystectomy, Appendectomy, Colonoscopy, Other (Right i nguinal hernia) - Family & Social History Living arrangement: At home Living Situation: Alone - POLST Patient has POLST: No Meds/Allgy - Home Medications Home Medications: Ambulatory Orders Medication Instructions Recorded Confirmed Albuterol Sulf [Ventolin Hfa 2 puffs INH Q4H PRN 06/12/16 08/04/21 Inhaler] Aspirin 81 mg PO DAILY 06/12/16 08/04/21 lisinopriL [Lisinopril] 20 mg PO DAILY 06/12/16 08/04/21 polyethylene glycoL 3350 [Miralax] 17 gm PO DAILY 08/04/21 08/04/21 - Allergies Allergies/Adverse Reactions: Allergies Allergy/AdvReac Type Severity Reaction Status Date / Time egg Allergy Severe Anaphylaxis Verified 08/04/21 10:57 Review of Systems - Constitutional Constitutional: reports: Weakness - Gastrointestinal Gastrointestinal: reports: Abdominal pain, Constipation - All Other Systems All Other Systems: reports: Reviewed and negative Exam - Vital Signs Reviewed Vital Signs: Yes Vital Signs: Vital Signs x48h Temp Pulse Pulse Resp BP BP Pulse Ox 08/05/21 20:04 36.4 C L 122 H 16 109/52 L 95 08/05/21 19:00 112 H 24 08/05/21 16:05 36.4 C L 106 H 16 91/49 L 97 08/05/21 14:54 95/53 L 08/05/21 14:29 105 H 84/58 L 89/58 L 94 - Physical Exam General Appearance: positive: No acute distress, Alert Eyes Bilateral: positive: Normal inspection, EOMI ENT: positive: ENT inspection nml, No signs of dehydration Neck: positive: Nml inspection, No JVD Respiratory: positive: No respiratory distress, Breath sounds nml Cardiovascular: positive: Regular rate & rhythm, Other (Distant heart sounds due to large breasts) Abdomen: positive: Other (Obese, distended, hypertympanic, no guarding or rebound, no active bowels sounds audible in any quadrant) Skin: positive: Warm, Dry, Pallor Extremities: positive: Non-tender, No pedal edema Neurologic/Psychiatric: positive: Oriented x3, Motor nml (Non-focal) Conclusion/Plan - Problem List (1) Hypotension Conclusion/Plan: Obtain labs to check for septic shock, cardiogenic shock and give fluids for volume depletion. Will order a 1 L saline bolus and agree with continuing NS at 125 cc an hour. Will order blood cultures x2 and urine culture, await lactic acid level result. Recommend broadening her IV antibiotics in case this is septic shock. Would add iv Flagyl to Zosyn for additional anaerobic bacterial coverage, given her abdominal surgery and a suspected bowel perforation. I have ordered this. Check troponins x2, the EKG has been done, there are no signs of acute MS. Place the patient on telemetry. Follow her CBC w/ diff daily. Change activity order to bedrest only while she is hypotensive. I have ordered all the above. (2) Septic shock Conclusion/Plan: The Lactic Acid level returned at 3.7. She therefore has criteria for septic shock including elevated Lactic Acid level, blood pressure less than 90 mmHg, tachycardia, elevated white blood count, elevated bands. This should be managed with aggressive IV crystalloids and treating the underlying infection (with a presumed intra-abdominal source). Will order fluid bolus and continue iv fgluids at 125 cc/hr or higher if no SOB. Monitor the lactic acid level every 2 hours until it normalizes. If blood pressure remains hypotensive despite IV crystalloids, she would need to be transferred to the ICU for iv vasopressor treatment and central iv line placement. (3) DONNIE (acute kidney injury) Conclusion/Plan: She has new elevation of BUN/creatinine in a pre-renal format. This suggest that she is volume depleted. Will give a fluid bolus and continue IV fluids at 125 cc an hour Avoid nephrotoxins. Follow BMP daily. (4) Hypokalemia Conclusion/Plan: Suspect this is from inadequate potassium intake given her prerenal azotemia. Will replace with more potassium IV riders. Chack a Mg as well Follow her BMP daily. (5) Perforated abdominal viscus Conclusion/Plan: CT imaging. Consider repeat imaging if tomorrow's clinical status appears worsened. Consider complete bowel rest with NPO except meds with sips and chips, stopping her clear liquid diet. Management per general surgery. I will order incentive spirometry given the atelectasis that was seen on chest x-ray. (6) Bilateral inguinal hernia Conclusion/Plan: As per imaging. Being followed by Gen Surg Qualifiers: Obstruction and gangrene presence: without obstruction or gangrene Recurrence: recurrent Qualified Code(s): K40.21 - Bilateral inguinal hernia, without obstruction or gangrene, recurrent (7) Constipation Conclusion/Plan: Management as per Gen Surg - Lab Results Fish Bones: 08/05/21 04:35 08/05/21 18:21 - Other Other Results/Comments: We will follow along with you for medical management. Thank you for allowing us to participate in the care of this patient.
[2021-08-05] MEDS ORDERED: SODIUM CHLORIDE 0.9% 1,000 ML IV ONE (21:07)
--- NOTE | 2021-08-05 21:21 | XRAY Report ---
PROCEDURE: Chest 1 View X-Ray INDICATIONS: Hypotension TECHNIQUE: One view of the chest was acquired. COMPARISON: 06/12/2016. CT of abdomen and pelvis dated 08/04/2021 FINDINGS: Surgical changes and devices: None. Lungs and pleura: There is blunting of bilateral costophrenic angles suggestive of trace pleural effu ruel and bibasilar atelectasis/small infiltrates. No gross pneumothorax. Mediastinum: Mediastinal contours appear normal. Heart size is normal. Bones and chest wall: No suspicious bony lesions. Overlying soft tissues appear unremarkable. Free air is seen under right hemidiaphragm. IMPRESSION: Bibasilar atelectasis/small infiltrates and suggestion of trace bilateral pleural effusion. Suggestio n of free air under the right hemidiaphragm which was also seen on previous CT of abdomen and pelvis study. No gross pneumothorax. Reviewed by: Luke Cuevas MD on 08/05/2021 9:20 PM PST Approved by: Luke Cuevas MD on 08/05/2021 9:20 PM PST Station ID: [id number]
[2021-08-05] MEDS: metroNIDAZOLE 500 MG/100 ML 500 MG/100 ML BAG IV SCH (21:58)
[2021-08-05 22:04] LABS: GLUCOSE, URINE (UA) NEGATIVE (NEGATIVE); KETONES,URINE (UA) TRACE mg/dL (NEGATIVE); LEUKOCYTE ESTERASE, URINE NEGATIVE (NEGATIVE); NITRITE,URINE NEGATIVE (NEGATIVE); OCCULT BLOOD,URINE NEGATIVE (NEGATIVE); PROTEIN,URINE 30 mg/dL (NEGATIVE); UROBILINOGEN,URINE 1 (NORMAL) E.U./dL (NORMAL)
[2021-08-05 22:09] LABS: BILIRUBIN,URINE NEGATIVE (NEGATIVE); CLARITY,URINE CLEAR (CLEAR); ICTOTEST,URINE NEGATIVE
[2021-08-05 22:13] LABS: AMORPHOUS SEDIMENT,UR Few /LPF; BACTERIA,URINE Rare /HPF (None Seen); RBC,URINE None Seen /HPF (0-5); SQUAMOUS EPITHELIAL CELL,UR FEW Squamous (<= Few); WBC,URINE 0-3 /HPF (0-5)
[2021-08-06] MEDS: PIPERACILLIN/TAZOBACTAM 3.375 GM in SODIUM CHLORIDE 0.9% MINIBAG 100 ML IV SCH ×4 (00:01→18:52)
[2021-08-06] MEDS: ACETAMINOPHEN 325 MG TABLET PO PRN ×2 (00:09→05:17)
[2021-08-06] MEDS: POTASSIUM CHLOR 10 MEQ/100 ML 10 MEQ/100 ML BAG IV SCH ×6 (00:51→17:06)
[2021-08-06] MEDS ORDERED: SODIUM CHLORIDE 0.9% 1,000 ML IV ONE (01:16)
[2021-08-06] MEDS: SODIUM CHLORIDE FLUSH 0.9% 10 ML SYRINGE IVP SCH ×3 (01:51→16:03)
[2021-08-06] MEDS: SODIUM CHLORIDE 0.9% 1,000 ML IV SCH ×3 (03:02→19:24)
[2021-08-06] MEDS: ALBUTEROL NEB 2.5 MG/3 ML INH PRN ×3 (04:19→21:51)
[2021-08-06] MEDS: metroNIDAZOLE 500 MG/100 ML 500 MG/100 ML BAG IV SCH ×3 (05:08→22:18)
[2021-08-06 05:30] LABS: EOSINOPHILS % (AUTO) 0.1 %; HCT - HEMATOCRIT 39.7 % (37.0-47.0); HGB - HEMOGLOBIN 13.6 g/dL (12.0-16.0); LYMPHOCYTES % (AUTO) 8.3 %; MEAN CORPUSCULAR HEMOGLOBIN 30.8 pg (27.0-31.0); MEAN CORPUSCULAR HGB CONC 34.3 g/dL (32.0-36.0); MEAN CORPUSCULAR VOLUME 89.8 fL (81.0-99.0); MONOCYTES % (AUTO) 3.3 %; NEUTROPHILS % (AUTO) 86.9 %; PLT - PLATELET COUNT 370 10^3/uL (130-450); RED BLOOD COUNT 4.42 10^6/uL (4.20-5.40); RED CELL DISTRIBUTION WIDTH 12.1 % (12.0-15.0); WHITE BLOOD COUNT 7.3 x10^3/uL (4.8-10.8)
[2021-08-06 05:31] LABS: ABNORMAL LYMPHS % (MANUAL) 0 %
[2021-08-06 05:36] LABS: MAGNESIUM 1.6 mg/dL (1.7-2.8); POTASSIUM 3.2 mmol/L (3.5-5.0)
[2021-08-06 05:54] LABS: BAND NEUTROPHILS % (MANUAL) 14 %; DIFFERENTIAL COMMENT MANUAL DIFFERENTIAL; LYMPHOCYTES # (MANUAL) 0.8 10^3/uL (1.5-3.5); LYMPHOCYTES % (MANUAL) 11 %; MONOCYTES # (MANUAL) 0.4 10^3/uL (0.0-1.0); NEUTROPHILS # (MANUAL) 6.1 10^3/uL (1.5-6.6); PLATELET ESTIMATE, MANUAL NORMAL (130-450,000) (NORMAL); PLATELET MORPHOLOGY NORMAL APPEARANCE (NORMAL); RBC MORPHOLOGY (MULTIPLE) NORMAL APPEARANCE (NORMAL); WBC MORPHOLOGY (MULTIPLE) NORMAL APPEARANCE (NORMAL)
[2021-08-06] MEDS: PANTOPRAZOLE 40 MG TABLET PO SCH (06:38)
[2021-08-06] MEDS ORDERED: POTASSIUM CHLORIDE 20 MEQ TABLET PO ONE (08:13)
--- NOTE | 2021-08-06 08:40 | PROVIDER PROGRESS NOTE ---
Subjective - Prog Note Date Prog Note Date: 08/06/21 - Subjective Subjective: She still has abdominal pain which is predominantly in the lower abdomen but also throughout. No nausea. She still feels constipated but was able to have a few small bowel movements. No chest pain or dyspnea. She denies any palpitations. Current Medications - Current Medications Current Medications: Active Medications Acetaminophen (Acetaminophen 325 Mg Tablet) 650 mg PO Q4HR PRN PRN Reason: PAIN Last Admin: 08/06/21 05:17 Dose: 650 mg Albuterol (Albuterol Neb 2.5 Mg/3 Ml) 2.5 mg INH RTQ4H PRN PRN Reason: Wheezing Last Admin: 08/06/21 12:35 Dose: 2.5 mg Aspirin (Aspirin Chew 81 Mg Tablet) 81 mg PO DAILY [facility] Last Admin: 08/06/21 09:21 Dose: Not Given Bisacodyl (Bisacodyl 10 Mg Supp) 10 mg KS DAILY [facility] Last Admin: 08/06/21 09:22 Dose: 10 mg Enoxaparin Sodium (Enoxaparin 40 Mg/0.4 Ml Syringe) 40 mg SUBQ DAILY [facility] Last Admin: 08/06/21 09:22 Dose: 40 mg Piperacillin Sod/Tazobactam (Sod 3.375 gm/ Sodium Chloride) 100 mls @ 200 mls/hr IV Q6HR [facility] Last Infusion: 08/06/21 13:08 Dose: Infused Metronidazole (Flagyl 500 Mg/100 Ml) 500 mg in 100 mls @ 100 mls/hr IV Q8H [facility] Last Admin: 08/06/21 14:19 Dose: 100 mls/hr Sodium Chloride (Normal Saline 0.9%) 1,000 mls @ 140 mls/hr IV .Q7H9M [facility] Last Infusion: 08/06/21 13:12 Dose: 140 mls/hr Morphine Sulfate (Morphine 2 Mg/Ml Carpuject) 2 mg IVP Q2HR PRN PRN Reason: PAIN Last Admin: 08/06/21 10:50 Dose: 2 mg Pantoprazole Sodium (Pantoprazole 40 Mg Tablet) 40 mg PO QDAC [facility] Last Admin: 08/06/21 06:38 Dose: 40 mg Sodium Chloride (Sodium Chloride Flush 0.9% 10 Ml Syringe) 10 ml IVP 0100,0900,1700 [facility] Last Admin: 08/06/21 16:03 Dose: Not Given Sodium Chloride (Sodium Chloride Flush 0.9% 10 Ml Syringe) 10 ml IVP PRN PRN PRN Reason: NEEDED PER PROVIDER ORDERS Albuterol Sulf [Ventolin Hfa Inhaler] 2 puffs INH Q4H PRN 06/12/16 Aspirin 81 mg PO DAILY 06/12/16 lisinopriL [Lisinopril] 20 mg PO DAILY 06/12/16 polyethylene glycoL 3350 [Miralax] 17 gm PO DAILY 08/04/21 Objective - Vital Signs/Intake & Output Reviewed Vital Signs: Yes Vital Signs: Vital Signs x48h Temp Pulse Pulse Resp BP BP Pulse Ox 08/06/21 07:48 38.0 C H 113 H 18 119/63 93 08/06/21 05:32 36.4 C L 18 93 08/06/21 04:21 106 H 20 08/06/21 04:00 114 H 110/63 08/06/21 03:45 107 H 109/65 08/06/21 03:08 36.9 C 108 H 16 114/58 L 94 08/06/21 01:02 99/55 L Intake & Output: Intake & Output 08/03/21 08/04/21 08/05/21 08/06/21 23:59 23:59 23:59 23:59 Intake Total 1200 7694.173 2074.583 Output Total 477 50 Balance 1200 7217.173 2024.583 - Objective General Appearance: positive: Alert, Mild distress Eyes Bilateral: positive: Normal inspection, Conjunctivae nml ENT: positive: ENT inspection nml Neck: positive: Nml inspection Respiratory: positive: No respiratory distress. negative: Wheezes, Rales Cardiovascular: positive: Irregularly irregular, Tachycardia. negative: Systolic murmur Abdomen: positive: No distention, Tenderness (Diffuse tenderness). negative: Non-tender, Guarding, Rebound Skin: positive: Warm, Dry Extremities: positive: No pedal edema. negative: Calf tenderness, Elías's sign/cords Neurologic/Psychiatric: positive: Motor nml. negative: Disoriented to person, Disoriented to place - Lab Results Fish Bones: 08/06/21 04:50 08/06/21 04:50 Other Labs: Lab Results x24hrs 0108/06/21 08/06/21 Range/Units 04:50 04:50 04:50 WBC 7.3 (4.8-10.8) x10^3/uL RBC 4.42 (4.20-5.40) 10^6/uL Hgb 13.6 (12.0-16.0) g/dL Hct 39.7 (37.0-47.0) % MCV 89.8 (81.0-99.0) fL MCH 30.8 (27.0-31.0) pg MCHC 34.3 (32.0-36.0) g/dL RDW 12.1 (12.0-15.0) % Plt Count 370 (130-450) 10^3/uL MPV 9.0 (7.9-10.8) fL Neut # (Auto) Not Reportable Lymph # (Auto) Not Reportable [place] # (Auto) Not Reportable Eos # (Auto) Not Reportable Baso # (Auto) Not Reportable Absolute Nucleated RBC Not Reportable Total Counted 100 Band Neuts % (Manual) 14 H (0 - 10) % Abnorm Lymph % (Manual) 0 % Nucleated RBC % Not Reportable Neutrophils # (Manual) 6.1 (1.5-6.6) 10^3/uL Lymphocytes # (Manual) 0.8 L (1.5-3.5) 10^3/uL Monocytes # (Manual) 0.4 (0.0-1.0) 10^3/uL Eosinophils # (Manual) 0.0 (0-0.7) 10^3/uL Basophils # (Manual) 0.0 (0-0.1) 10^3/uL Differential Comment MANUAL DIFFERENTIAL WBC Morphology NORMAL APPEARANCE (NORMAL) Platelet Estimate NORMAL (130-450,000) (NORMAL) Platelet Morphology NORMAL APPEARANCE (NORMAL) RBC Morph Micro Appear NORMAL APPEARANCE (NORMAL) Sodium 137 (135-145) mmol/L Potassium 3.2 L (3.5-5.0) mmol/L Chloride 104 (101-111) mmol/L Carbon Dioxide 22 (21-32) mmol/L Anion Gap 11.0 (6-13) BUN 31 H (6-20) mg/dL Creatinine 1.0 (0.4-1.0) mg/dL Estimated GFR (MDRD) 55 L (>89) Glucose 96 (70-100) mg/dL Lactic Acid 2.7 H (0.5-2.2) mmol/L Calcium 9.0 (8.5-10.3) mg/dL Magnesium 1.6 L (1.7-2.8) mg/dL Troponin I High Sens (2.3-14.8) ng/L Urine Color Urine Clarity (CLEAR) Urine pH (5.0-7.5) PH Ur Specific Bulger (1.002-1.030) Urine Protein (NEGATIVE) mg/dL Urine Glucose (UA) (NEGATIVE) mg/dL Urine Ketones (NEGATIVE) mg/dL Urine Occult Blood (NEGATIVE) Urine Nitrite (NEGATIVE) Urine Bilirubin (NEGATIVE) Urine Urobilinogen (NORMAL) E.U./dL Ur Leukocyte Esterase (NEGATIVE) Urine RBC (0-5) /HPF Urine WBC (0-5) /HPF Ur Squamous Epith Cells (<= Few) Amorphous Sediment /LPF Urine Bacteria (None Seen) /HPF Urine Culture Comments 08/06/21 08/05/21 08/05/21 Range/Units 01:52 23:25 23:25 WBC (4.8-10.8) x10^3/uL RBC (4.20-5.40) 10^6/uL Hgb (12.0-16.0) g/dL Hct (37.0-47.0) % MCV (81.0-99.0) fL MCH (27.0-31.0) pg MCHC (32.0-36.0) g/dL RDW (12.0-15.0) % Plt Count (130-450) 10^3/uL MPV (7.9-10.8) fL Neut # (Auto) Lymph # (Auto) [place] # (Auto) Eos # (Auto) Baso # (Auto) Absolute Nucleated RBC Total Counted Band Neuts % (Manual) (0 - 10) % Abnorm Lymph % (Manual) % Nucleated RBC % Neutrophils # (Manual) (1.5-6.6) 10^3/uL Lymphocytes # (Manual) (1.5-3.5) 10^3/uL Monocytes # (Manual) (0.0-1.0) 10^3/uL Eosinophils # (Manual) (0-0.7) 10^3/uL Basophils # (Manual) (0-0.1) 10^3/uL Differential Comment WBC Morphology (NORMAL) Platelet Estimate (NORMAL) Platelet Morphology (NORMAL) RBC Morph Micro Appear (NORMAL) Sodium (135-145) mmol/L Potassium (3.5-5.0) mmol/L Chloride (101-111) mmol/L Carbon Dioxide (21-32) mmol/L Anion Gap (6-13) BUN (6-20) mg/dL Creatinine (0.4-1.0) mg/dL Estimated GFR (MDRD) (>89) Glucose (70-100) mg/dL Lactic Acid 3.0 H* 3.7 H* (0.5-2.2) mmol/L Calcium (8.5-10.3) mg/dL Magnesium (1.7-2.8) mg/dL Troponin I High Sens 4.4 (2.3-14.8) ng/L Urine Color Urine Clarity (CLEAR) Urine pH (5.0-7.5) PH Ur Specific Bulger (1.002-1.030) Urine Protein (NEGATIVE) mg/dL Urine Glucose (UA) (NEGATIVE) mg/dL Urine Ketones (NEGATIVE) mg/dL Urine Occult Blood (NEGATIVE) Urine Nitrite (NEGATIVE) Urine Bilirubin (NEGATIVE) Urine Urobilinogen (NORMAL) E.U./dL Ur Leukocyte Esterase (NEGATIVE) Urine RBC (0-5) /HPF Urine WBC (0-5) /HPF Ur Squamous Epith Cells (<= Few) Amorphous Sediment /LPF Urine Bacteria (None Seen) /HPF Urine Culture Comments 08/05/21 08/05/21 08/05/21 Range/Units 21:30 20:50 20:50 WBC (4.8-10.8) x10^3/uL RBC (4.20-5.40) 10^6/uL Hgb (12.0-16.0) g/dL Hct (37.0-47.0) % MCV (81.0-99.0) fL MCH (27.0-31.0) pg MCHC (32.0-36.0) g/dL RDW (12.0-15.0) % Plt Count (130-450) 10^3/uL MPV (7.9-10.8) fL Neut # (Auto) Lymph # (Auto) [place] # (Auto) Eos # (Auto) Baso # (Auto) Absolute Nucleated RBC Total Counted Band Neuts % (Manual) (0 - 10) % Abnorm Lymph % (Manual) % Nucleated RBC % Neutrophils # (Manual) (1.5-6.6) 10^3/uL Lymphocytes # (Manual) (1.5-3.5) 10^3/uL Monocytes # (Manual) (0.0-1.0) 10^3/uL Eosinophils # (Manual) (0-0.7) 10^3/uL Basophils # (Manual) (0-0.1) 10^3/uL Differential Comment WBC Morphology (NORMAL) Platelet Estimate (NORMAL) Platelet Morphology (NORMAL) RBC Morph Micro Appear (NORMAL) Sodium (135-145) mmol/L Potassium (3.5-5.0) mmol/L Chloride (101-111) mmol/L Carbon Dioxide (21-32) mmol/L Anion Gap (6-13) BUN (6-20) mg/dL Creatinine (0.4-1.0) mg/dL Estimated GFR (MDRD) (>89) Glucose (70-100) mg/dL Lactic Acid 3.7 H* (0.5-2.2) mmol/L Calcium (8.5-10.3) mg/dL Magnesium (1.7-2.8) mg/dL Troponin I High Sens 4.9 (2.3-14.8) ng/L Urine Color YELLOW Urine Clarity CLEAR (CLEAR) Urine pH 5.0 (5.0-7.5) PH Ur Specific Bulger >=1.030 H (1.002-1.030) Urine Protein 30 H (NEGATIVE) mg/dL Urine Glucose (UA) NEGATIVE (NEGATIVE) mg/dL Urine Ketones TRACE (NEGATIVE) mg/dL Urine Occult Blood NEGATIVE (NEGATIVE) Urine Nitrite NEGATIVE (NEGATIVE) Urine Bilirubin NEGATIVE (NEGATIVE) Urine Urobilinogen 1 (NORMAL) (NORMAL) E.U./dL Ur Leukocyte Esterase NEGATIVE (NEGATIVE) Urine RBC None Seen (0-5) /HPF Urine WBC 0-3 (0-5) /HPF Ur Squamous Epith Cells FEW Squamous (<= Few) Amorphous Sediment Few /LPF Urine Bacteria Rare (None Seen) /HPF Urine Culture Comments NOT INDICATED 08/05/21 Range/Units 18:21 WBC (4.8-10.8) x10^3/uL RBC (4.20-5.40) 10^6/uL Hgb (12.0-16.0) g/dL Hct (37.0-47.0) % MCV (81.0-99.0) fL MCH (27.0-31.0) pg MCHC (32.0-36.0) g/dL RDW (12.0-15.0) % Plt Count (130-450) 10^3/uL MPV (7.9-10.8) fL Neut # (Auto) Lymph # (Auto) [place] # (Auto) Eos # (Auto) Baso # (Auto) Absolute Nucleated RBC Total Counted Band Neuts % (Manual) (0 - 10) % Abnorm Lymph % (Manual) % Nucleated RBC % Neutrophils # (Manual) (1.5-6.6) 10^3/uL Lymphocytes # (Manual) (1.5-3.5) 10^3/uL Monocytes # (Manual) (0.0-1.0) 10^3/uL Eosinophils # (Manual) (0-0.7) 10^3/uL Basophils # (Manual) (0-0.1) 10^3/uL Differential Comment WBC Morphology (NORMAL) Platelet Estimate (NORMAL) Platelet Morphology (NORMAL) RBC Morph Micro Appear (NORMAL) Sodium 136 (135-145) mmol/L Potassium 3.1 L (3.5-5.0) mmol/L Chloride 101 (101-111) mmol/L Carbon Dioxide 23 (21-32) mmol/L Anion Gap 12.0 (6-13) BUN 31 H (6-20) mg/dL Creatinine 1.5 H (0.4-1.0) mg/dL Estimated GFR (MDRD) 35 L (>89) Glucose 124 H (70-100) mg/dL Lactic Acid (0.5-2.2) mmol/L Calcium 9.0 (8.5-10.3) mg/dL Magnesium (1.7-2.8) mg/dL Troponin I High Sens (2.3-14.8) ng/L Urine Color Urine Clarity (CLEAR) Urine pH (5.0-7.5) PH Ur Specific Bulger (1.002-1.030) Urine Protein (NEGATIVE) mg/dL Urine Glucose (UA) (NEGATIVE) mg/dL Urine Ketones (NEGATIVE) mg/dL Urine Occult Blood (NEGATIVE) Urine Nitrite (NEGATIVE) Urine Bilirubin (NEGATIVE) Urine Urobilinogen (NORMAL) E.U./dL Ur Leukocyte Esterase (NEGATIVE) Urine RBC (0-5) /HPF Urine WBC (0-5) /HPF Ur Squamous Epith Cells (<= Few) Amorphous Sediment /LPF Urine Bacteria (None Seen) /HPF Urine Culture Comments ABX Reporting Has patient been on IV antibiotics over the past 48 hours?: Yes Assessment/Plan - Problem List (1) Severe sepsis Impression: Suspect secondary to perforated viscus. She has an elevated white count with bands, fever and elevated lactic acid which has since resolved. She has remained normotensive. We will keep her on Zosyn and we have added Flagyl as up-to-date recommended dual anaerobic coverage given her recent surgical intervention. Follow-up blood cultures. (2) Perforated abdominal viscus Impression: There is concern given there is a fluid collection on the CT that she may have perforated diverticulitis and this may be the source of her sepsis. She remains on IV antibiotics as mentioned above. There has been no other obvious source of infection. She is p.o. and the plan per general surgery is to repeat imaging in a few days to assess this fluid collection. Continue pain control with morphine as needed. (3) Atrial fibrillation with RVR Impression: This is likely exacerbated by sepsis and hypokalemia. We have given 20 mg of IV diltiazem without improvement in her heart rate. We will give another 10 mg of IV diltiazem that there is no improvement then we will consider amiodarone or IV Lopressor. No anticoagulation at this time given she may need intervention in the near future for suspected perforated diverticulitis. We will check a TSH. Optimize her electrolytes. (4) Hypokalemia Impression: Her potassium is decreased and this is likely due to decreased oral intake and potentially GI losses. We will replace this intravenously and monitor. Check magnesium.
[2021-08-06] MEDS: LACTULOSE 10 GM /15 ML UDC PO SCH (09:21)
[2021-08-06] MEDS: ASPIRIN CHEW 81 MG TABLET PO SCH (09:21)
[2021-08-06] MEDS: BISACODYL 10 MG SUPP PR SCH (09:22)
[2021-08-06] MEDS: ENOXAPARIN 40 MG/0.4 ML SYRINGE SUBQ SCH (09:22)
[2021-08-06] MEDS: MORPHINE 2 MG/ML CARPUJECT IVP PRN (10:50)
--- NOTE | 2021-08-06 14:09 | PROVIDER PROGRESS NOTE ---
Subjective - General Admit Date: 08/04/21 Procedure Date: 07/10/21 Post Op Days: 27 - Review of Systems Wound/Incisions: positive: Healing well All Other Systems: positive: Reviewed and negative - Other Other Information/Narrative: Na is looking and feeling a bit better today. She says that her abdominal distention feels better and there is less pressure in her abdomen. Her pain is pretty well controlled though she has occasionally used morphine. She says she passes flatus when she sits on the toilet but not in the bed and there has been very little. Objective - Patient Data Reviewed Vital Signs: Yes Vital Signs: Vital Signs x48h Temp Pulse Pulse Resp BP Pulse Ox 08/06/21 12:39 114 H 16 08/06/21 11:47 36.7 C 114 H 18 112/63 92 08/06/21 11:15 114 H 16 08/06/21 07:48 38.0 C H 113 H 18 119/63 93 Weight: Weight 08/04/21 08/05/21 08/06/21 23:59 23:59 23:59 Weight (kg) 75 kg Intake & Output: Intake and Output Totals x24h 08/04/21 08/05/21 08/06/21 23:59 23:59 23:59 Intake Total 1200 7694.173 3628.916 Output Total 477 150 Balance 1200 7217.173 3478.916 - Lab Results Lab Results: 08/06/21 04:50 08/06/21 04:50 Other Lab Results: Lab Results x24hrs 08/06/21 08/06/21 08/06/21 Range/Units 08:23 04:50 04:50 WBC (4.8-10.8) x10^3/uL RBC (4.20-5.40) 10^6/uL Hgb (12.0-16.0) g/dL Hct (37.0-47.0) % MCV (81.0-99.0) fL MCH (27.0-31.0) pg MCHC (32.0-36.0) g/dL RDW (12.0-15.0) % Plt Count (130-450) 10^3/uL MPV (7.9-10.8) fL Neut # (Auto) Lymph # (Auto) [place] # (Auto) Eos # (Auto) Baso # (Auto) Absolute Nucleated RBC Total Counted Band Neuts % (Manual) (0 - 10) % Abnorm Lymph % (Manual) % Nucleated RBC % Neutrophils # (Manual) (1.5-6.6) 10^3/uL Lymphocytes # (Manual) (1.5-3.5) 10^3/uL Monocytes # (Manual) (0.0-1.0) 10^3/uL Eosinophils # (Manual) (0-0.7) 10^3/uL Basophils # (Manual) (0-0.1) 10^3/uL Differential Comment WBC Morphology (NORMAL) Platelet Estimate (NORMAL) Platelet Morphology (NORMAL) RBC Morph Micro Appear (NORMAL) Sodium 137 (135-145) mmol/L Potassium 3.2 L (3.5-5.0) mmol/L Chloride 104 (101-111) mmol/L Carbon Dioxide 22 (21-32) mmol/L Anion Gap 11.0 (6-13) BUN 31 H (6-20) mg/dL Creatinine 1.0 (0.4-1.0) mg/dL Estimated GFR (MDRD) 55 L (>89) Glucose 96 (70-100) mg/dL POC Whole Bld Glucose (70 - 100) mg/dL Lactic Acid 2.2 2.7 H (0.5-2.2) mmol/L Calcium 9.0 (8.5-10.3) mg/dL Magnesium 1.6 L (1.7-2.8) mg/dL Troponin I High Sens (2.3-14.8) ng/L Urine Color Urine Clarity (CLEAR) Urine pH (5.0-7.5) PH Ur Specific [place] (1.002-1.030) Urine Protein (NEGATIVE) mg/dL Urine Glucose (UA) (NEGATIVE) mg/dL Urine Ketones (NEGATIVE) mg/dL Urine Occult Blood (NEGATIVE) Urine Nitrite (NEGATIVE) Urine Bilirubin (NEGATIVE) Urine Urobilinogen (NORMAL) E.U./dL Ur Leukocyte Esterase (NEGATIVE) Urine RBC (0-5) /HPF Urine WBC (0-5) /HPF Ur Squamous Epith Cells (<= Few) Amorphous Sediment /LPF Urine Bacteria (None Seen) /HPF Urine Culture Comments 08/06/21 08/06/21 08/05/21 Range/Units 04:50 01:52 23:25 WBC 7.3 (4.8-10.8) x10^3/uL RBC 4.42 (4.20-5.40) 10^6/uL Hgb 13.6 (12.0-16.0) g/dL Hct 39.7 (37.0-47.0) % MCV 89.8 (81.0-99.0) fL MCH 30.8 (27.0-31.0) pg MCHC 34.3 (32.0-36.0) g/dL RDW 12.1 (12.0-15.0) % Plt Count 370 (130-450) 10^3/uL MPV 9.0 (7.9-10.8) fL Neut # (Auto) Not Reportable Lymph # (Auto) Not Reportable [place] # (Auto) Not Reportable Eos # (Auto) Not Reportable Baso # (Auto) Not Reportable Absolute Nucleated RBC Not Reportable Total Counted 100 Band Neuts % (Manual) 14 H (0 - 10) % Abnorm Lymph % (Manual) 0 % Nucleated RBC % Not Reportable Neutrophils # (Manual) 6.1 (1.5-6.6) 10^3/uL Lymphocytes # (Manual) 0.8 L (1.5-3.5) 10^3/uL Monocytes # (Manual) 0.4 (0.0-1.0) 10^3/uL Eosinophils # (Manual) 0.0 (0-0.7) 10^3/uL Basophils # (Manual) 0.0 (0-0.1) 10^3/uL Differential Comment MANUAL DIFFERENTIAL WBC Morphology NORMAL APPEARANCE (NORMAL) Platelet Estimate NORMAL (130-450,000) (NORMAL) Platelet Morphology NORMAL APPEARANCE (NORMAL) RBC Morph Micro Appear NORMAL APPEARANCE (NORMAL) Sodium (135-145) mmol/L Potassium (3.5-5.0) mmol/L Chloride (101-111) mmol/L Carbon Dioxide (21-32) mmol/L Anion Gap (6-13) BUN (6-20) mg/dL Creatinine (0.4-1.0) mg/dL Estimated GFR (MDRD) (>89) Glucose (70-100) mg/dL POC Whole Bld Glucose (70 - 100) mg/dL Lactic Acid 3.0 H* 3.7 H* (0.5-2.2) mmol/L Calcium (8.5-10.3) mg/dL Magnesium (1.7-2.8) mg/dL Troponin I High Sens (2.3-14.8) ng/L Urine Color Urine Clarity (CLEAR) Urine pH (5.0-7.5) PH Ur Specific [place] (1.002-1.030) Urine Protein (NEGATIVE) mg/dL Urine Glucose (UA) (NEGATIVE) mg/dL Urine Ketones (NEGATIVE) mg/dL Urine Occult Blood (NEGATIVE) Urine Nitrite (NEGATIVE) Urine Bilirubin (NEGATIVE) Urine Urobilinogen (NORMAL) E.U./dL Ur Leukocyte Esterase (NEGATIVE) Urine RBC (0-5) /HPF Urine WBC (0-5) /HPF Ur Squamous Epith Cells (<= Few) Amorphous Sediment /LPF Urine Bacteria (None Seen) /HPF Urine Culture Comments 08/05/21 08/05/21 08/05/21 Range/Units 23:25 21:30 20:50 WBC (4.8-10.8) x10^3/uL RBC (4.20-5.40) 10^6/uL Hgb (12.0-16.0) g/dL Hct (37.0-47.0) % MCV (81.0-99.0) fL MCH (27.0-31.0) pg MCHC (32.0-36.0) g/dL RDW (12.0-15.0) % Plt Count (130-450) 10^3/uL MPV (7.9-10.8) fL Neut # (Auto) Lymph # (Auto) [place] # (Auto) Eos # (Auto) Baso # (Auto) Absolute Nucleated RBC Total Counted Band Neuts % (Manual) (0 - 10) % Abnorm Lymph % (Manual) % Nucleated RBC % Neutrophils # (Manual) (1.5-6.6) 10^3/uL Lymphocytes # (Manual) (1.5-3.5) 10^3/uL Monocytes # (Manual) (0.0-1.0) 10^3/uL Eosinophils # (Manual) (0-0.7) 10^3/uL Basophils # (Manual) (0-0.1) 10^3/uL Differential Comment WBC Morphology (NORMAL) Platelet Estimate (NORMAL) Platelet Morphology (NORMAL) RBC Morph Micro Appear (NORMAL) Sodium (135-145) mmol/L Potassium (3.5-5.0) mmol/L Chloride (101-111) mmol/L Carbon Dioxide (21-32) mmol/L Anion Gap (6-13) BUN (6-20) mg/dL Creatinine (0.4-1.0) mg/dL Estimated GFR (MDRD) (>89) Glucose (70-100) mg/dL POC Whole Bld Glucose (70 - 100) mg/dL Lactic Acid 3.7 H* (0.5-2.2) mmol/L Calcium (8.5-10.3) mg/dL Magnesium (1.7-2.8) mg/dL Troponin I High Sens 4.4 (2.3-14.8) ng/L Urine Color YELLOW Urine Clarity CLEAR (CLEAR) Urine pH 5.0 (5.0-7.5) PH Ur Specific [place] >=1.030 H (1.002-1.030) Urine Protein 30 H (NEGATIVE) mg/dL Urine Glucose (UA) NEGATIVE (NEGATIVE) mg/dL Urine Ketones TRACE (NEGATIVE) mg/dL Urine Occult Blood NEGATIVE (NEGATIVE) Urine Nitrite NEGATIVE (NEGATIVE) Urine Bilirubin NEGATIVE (NEGATIVE) Urine Urobilinogen 1 (NORMAL) (NORMAL) E.U./dL Ur Leukocyte Esterase NEGATIVE (NEGATIVE) Urine RBC None Seen (0-5) /HPF Urine WBC 0-3 (0-5) /HPF Ur Squamous Epith Cells FEW Squamous (<= Few) Amorphous Sediment Few /LPF Urine Bacteria Rare (None Seen) /HPF Urine Culture Comments NOT INDICATED 08/05/21 08/05/21 08/04/21 Range/Units 20:50 18:21 22:14 WBC (4.8-10.8) x10^3/uL RBC (4.20-5.40) 10^6/uL Hgb (12.0-16.0) g/dL Hct (37.0-47.0) % MCV (81.0-99.0) fL MCH (27.0-31.0) pg MCHC (32.0-36.0) g/dL RDW (12.0-15.0) % Plt Count (130-450) 10^3/uL MPV (7.9-10.8) fL Neut # (Auto) Lymph # (Auto) [place] # (Auto) Eos # (Auto) Baso # (Auto) Absolute Nucleated RBC Total Counted Band Neuts % (Manual) (0 - 10) % Abnorm Lymph % (Manual) % Nucleated RBC % Neutrophils # (Manual) (1.5-6.6) 10^3/uL Lymphocytes # (Manual) (1.5-3.5) 10^3/uL Monocytes # (Manual) (0.0-1.0) 10^3/uL Eosinophils # (Manual) (0-0.7) 10^3/uL Basophils # (Manual) (0-0.1) 10^3/uL Differential Comment WBC Morphology (NORMAL) Platelet Estimate (NORMAL) Platelet Morphology (NORMAL) RBC Morph Micro Appear (NORMAL) Sodium 136 (135-145) mmol/L Potassium 3.1 L (3.5-5.0) mmol/L Chloride 101 (101-111) mmol/L Carbon Dioxide 23 (21-32) mmol/L Anion Gap 12.0 (6-13) BUN 31 H (6-20) mg/dL Creatinine 1.5 H (0.4-1.0) mg/dL Estimated GFR (MDRD) 35 L (>89) Glucose 124 H (70-100) mg/dL POC Whole Bld Glucose 210 H (70 - 100) mg/dL Lactic Acid (0.5-2.2) mmol/L Calcium 9.0 (8.5-10.3) mg/dL Magnesium (1.7-2.8) mg/dL Troponin I High Sens 4.9 (2.3-14.8) ng/L Urine Color Urine Clarity (CLEAR) Urine pH (5.0-7.5) PH Ur Specific [place] (1.002-1.030) Urine Protein (NEGATIVE) mg/dL Urine Glucose (UA) (NEGATIVE) mg/dL Urine Ketones (NEGATIVE) mg/dL Urine Occult Blood (NEGATIVE) Urine Nitrite (NEGATIVE) Urine Bilirubin (NEGATIVE) Urine Urobilinogen (NORMAL) E.U./dL Ur Leukocyte Esterase (NEGATIVE) Urine RBC (0-5) /HPF Urine WBC (0-5) /HPF Ur Squamous Epith Cells (<= Few) Amorphous Sediment /LPF Urine Bacteria (None Seen) /HPF Urine Culture Comments - Current Medications Current Medications: Current Medications Generic Name Dose Route Start Last Admin Trade Name Freq PRN Reason Stop Dose Admin Acetaminophen 650 mg 08/04/21 14:01 08/06/21 05:17 Acetaminophen 325 Mg Tablet PO 650 mg Q4HR PRN Administration PAIN Albuterol 2.5 mg 08/04/21 17:26 08/06/21 12:35 Albuterol Neb 2.5 Mg/3 Ml INH 2.5 mg RTQ4H PRN Administration Wheezing Aspirin 81 mg 08/05/21 09:00 08/06/21 09:21 Aspirin Chew 81 Mg Tablet PO Not Given DAILY [facility] Bisacodyl 10 mg 08/05/21 09:00 08/06/21 09:22 Bisacodyl 10 Mg Supp [place] 10 mg DAILY [facility] Administration Enoxaparin Sodium 40 mg 08/05/21 09:00 08/06/21 09:22 Enoxaparin 40 Mg/0.4 Ml Syringe SUBQ 40 mg DAILY [facility] Administration Piperacillin Sod/Tazobactam 100 mls @ 200 mls/hr 08/04/21 18:00 08/06/21 13:08 Sod 3.375 gm/ Sodium Chloride IV Infused Q6HR [facility] Infusion Metronidazole 500 mg in 100 mls @ 100 mls/hr 08/05/21 22:00 08/06/21 06:08 Flagyl 500 Mg/100 Ml IV Infused Q8H [facility] Infusion Sodium Chloride 1,000 mls @ 140 mls/hr 08/06/21 01:16 08/06/21 13:12 Normal Saline 0.9% IV 140 mls/hr .Q7H9M [facility] Infusion Potassium Chloride 10 meq in 100 mls @ 100 mls/hr 08/06/21 11:00 08/06/21 13:08 Potassium Chloride IV 08/06/21 14:59 100 mls/hr Q1H [facility] Administration Morphine Sulfate 2 mg 08/06/21 10:21 08/06/21 10:50 Morphine 2 Mg/Ml Carpuject IVP 2 mg Q2HR PRN Administration PAIN Pantoprazole Sodium 40 mg 08/05/21 07:00 08/06/21 06:38 Pantoprazole 40 Mg Tablet PO 40 mg QDAC [facility] Administration Sodium Chloride 10 ml 08/04/21 17:00 08/06/21 09:21 Sodium Chloride Flush 0.9% 10 Ml Syringe IVP Not Given 0100,0900,1700 [facility] - Physical Exam General Appearance: positive: No acute distress, Alert Eyes Bilateral: positive: Normal inspection, PERRL Respiratory: positive: No respiratory distress Abdomen: positive: Tenderness (MinimalWith very mild distention). negative: Guarding, Rebound ABX Reporting Has patient been on IV antibiotics over the past 48 hours?: Yes Impression/Plan - Problem List Problem List: Perforated viscus, likely perforated diverticulitis 1. Appreciate medicine help 2. Continue antibiotics and plan to repeat CAT scan on Thursday.There is a fluid collection in the pelvis on her original CAT scan and it needs to be reevaluated. 3. N.p.o. with ice chips and sips only as we await bowel function. 4. If were not able to advance her diet in the next 24 to 48 hours, we need to consider nutritional support
[2021-08-06] MEDS ORDERED: diltiaZEM INJ 5 MG/ML VIAL IVP ONE ×2 (16:10→17:18)
[2021-08-06] MEDS ORDERED: MAGNESIUM SULFATE 2 GRAM 2 GM/50 ML BAG IV ONE (17:37)
[2021-08-06] MEDS ORDERED: METOPROLOL 5 MG/5 ML VIAL IVP SCH (20:00)
[2021-08-07] MEDS: PIPERACILLIN/TAZOBACTAM 3.375 GM in SODIUM CHLORIDE 0.9% MINIBAG 100 ML IV SCH ×2 (01:05→06:04)
[2021-08-07] MEDS: SODIUM CHLORIDE FLUSH 0.9% 10 ML SYRINGE IVP SCH ×3 (01:05→18:05)
[2021-08-07] MEDS: ALBUTEROL NEB 2.5 MG/3 ML INH PRN ×4 (02:01→20:53)
[2021-08-07] MEDS: SODIUM CHLORIDE 0.9% 1,000 ML IV SCH ×4 (03:45→23:13)
[2021-08-07] MEDS: METOPROLOL 5 MG/5 ML VIAL IVP SCH ×4 (03:49→21:22)
[2021-08-07 05:35] LABS: BASOPHILS % (AUTO) 0.1 %; EOSINOPHILS % (AUTO) 0.1 %; HCT - HEMATOCRIT 39.4 % (37.0-47.0); HGB - HEMOGLOBIN 13.4 g/dL (12.0-16.0); MEAN CORPUSCULAR HEMOGLOBIN 30.4 pg (27.0-31.0); MEAN CORPUSCULAR VOLUME 89.3 fL (81.0-99.0); MEAN PLATELET VOLUME 9.2 fL (7.9-10.8); MONOCYTES % (AUTO) 2.8 %; NEUTROPHILS % (AUTO) 87.9 %; PLT - PLATELET COUNT 376 10^3/uL (130-450); RED BLOOD COUNT 4.41 10^6/uL (4.20-5.40); RED CELL DISTRIBUTION WIDTH 12.5 % (12.0-15.0); WHITE BLOOD COUNT 9.4 x10^3/uL (4.8-10.8)
[2021-08-07 05:36] LABS: CALCIUM 9.1 mg/dL (8.5-10.3); CREATININE 0.6 mg/dL (0.4-1.0); POTASSIUM 3.1 mmol/L (3.5-5.0)
[2021-08-07 05:56] LABS: ABNORMAL LYMPHS % (MANUAL) 0 %
[2021-08-07 06:05] LABS: BAND NEUTROPHILS % (MANUAL) 18 %; DIFFERENTIAL COMMENT MANUAL DIFFERENTIAL; LYMPHOCYTES # (MANUAL) 0.8 10^3/uL (1.5-3.5); LYMPHOCYTES % (MANUAL) 8 %; MONOCYTES # (MANUAL) 0.1 10^3/uL (0.0-1.0); NEUTROPHILS # (MANUAL) 8.6 10^3/uL (1.5-6.6); PLATELET ESTIMATE, MANUAL NORMAL (130-450,000) (NORMAL); RBC MORPHOLOGY (MULTIPLE) NORMAL APPEARANCE (NORMAL)
[2021-08-07] MEDS: PANTOPRAZOLE 40 MG TABLET PO SCH (06:11)
[2021-08-07] MEDS: metroNIDAZOLE 500 MG/100 ML 500 MG/100 ML BAG IV SCH ×3 (06:54→22:22)
--- NOTE | 2021-08-07 07:34 | PROVIDER PROGRESS NOTE ---
Subjective - Prog Note Date Prog Note Date: 08/07/21 - Subjective Subjective: She feels much improved today. Still has abdominal pain was able to have a bowel movement. Occasionally feels short of breath. Her lower extremities are more edematous today. Current Medications - Current Medications Current Medications: Active Medications Acetaminophen (Acetaminophen 325 Mg Tablet) 650 mg PO Q4HR PRN PRN Reason: PAIN Last Admin: 08/06/21 05:17 Dose: 650 mg Albuterol (Albuterol Neb 2.5 Mg/3 Ml) 2.5 mg INH RTQ4H PRN PRN Reason: Wheezing Last Admin: 08/07/21 02:01 Dose: 2.5 mg Aspirin (Aspirin Chew 81 Mg Tablet) 81 mg PO DAILY [facility] Last Admin: 08/06/21 09:21 Dose: Not Given Bisacodyl (Bisacodyl 10 Mg Supp) 10 mg FL DAILY [facility] Last Admin: 08/06/21 09:22 Dose: 10 mg Enoxaparin Sodium (Enoxaparin 40 Mg/0.4 Ml Syringe) 40 mg SUBQ DAILY [facility] Last Admin: 08/06/21 09:22 Dose: 40 mg Piperacillin Sod/Tazobactam (Sod 3.375 gm/ Sodium Chloride) 100 mls @ 200 mls/hr IV Q6HR [facility] Last Infusion: 08/07/21 06:34 Dose: Infused Metronidazole (Flagyl 500 Mg/100 Ml) 500 mg in 100 mls @ 100 mls/hr IV Q8H [facility] Last Admin: 08/07/21 06:54 Dose: 100 mls/hr Sodium Chloride (Normal Saline 0.9%) 1,000 mls @ 140 mls/hr IV .Q7H9M [facility] Last Admin: 08/07/21 03:45 Dose: 140 mls/hr Metoprolol Tartrate (Metoprolol 5 Mg/5 Ml Vial) 5 mg IVP Q6H [facility] Last Admin: 08/07/21 03:49 Dose: 5 mg Morphine Sulfate (Morphine 2 Mg/Ml Carpuject) 2 mg IVP Q2HR PRN PRN Reason: PAIN Last Admin: 08/06/21 10:50 Dose: 2 mg Pantoprazole Sodium (Pantoprazole 40 Mg Tablet) 40 mg PO QDAC [facility] Last Admin: 08/07/21 06:11 Dose: 40 mg Sodium Chloride (Sodium Chloride Flush 0.9% 10 Ml Syringe) 10 ml IVP 0100,0900,1700 [facility] Last Admin: 08/07/21 03:49 Dose: 10 ml Sodium Chloride (Sodium Chloride Flush 0.9% 10 Ml Syringe) 10 ml IVP PRN PRN PRN Reason: NEEDED PER PROVIDER ORDERS Albuterol Sulf [Ventolin Hfa Inhaler] 2 puffs INH Q4H PRN 06/12/16 Aspirin 81 mg PO DAILY 06/12/16 lisinopriL [Lisinopril] 20 mg PO DAILY 06/12/16 polyethylene glycoL 3350 [Miralax] 17 gm PO DAILY 08/04/21 Objective - Vital Signs/Intake & Output Reviewed Vital Signs: Yes Vital Signs: Vital Signs x48h Temp Pulse Pulse Resp BP BP Pulse Ox 08/07/21 04:30 86 128/74 08/07/21 03:59 88 122/70 08/07/21 03:54 36.4 C L 91 20 114/69 95 08/07/21 03:49 129/64 08/07/21 03:46 99 129/64 08/07/21 02:00 111 H 20 08/07/21 00:45 36.5 C 93 22 123/71 96 Intake & Output: Intake & Output 08/04/21 08/05/21 08/06/21 08/07/21 23:59 23:59 23:59 23:59 Intake Total 1200 7694.173 5608.916 738 Output Total 477 525 100 Balance 1200 7217.173 5083.916 638 - Objective General Appearance: positive: No acute distress, Alert Eyes Bilateral: positive: Normal inspection, Conjunctivae nml ENT: positive: ENT inspection nml, Other (Nasal cannula in place.) Respiratory: positive: No respiratory distress. negative: Wheezes, Rales Cardiovascular: positive: Regular rate & rhythm, Tachycardia. negative: Irregularly irregular, Systolic murmur Abdomen: positive: Nml bowel sounds, Tenderness (Tenderness in lower quadrant.). negative: Non-tender Skin: positive: Warm, Dry Extremities: positive: Pedal edema (+1 edema in bilateral lower extremities.) Neurologic/Psychiatric: negative: Disoriented to person, Disoriented to place - Lab Results Fish Bones: 08/07/21 05:08 08/07/21 05:08 Other Labs: Lab Results x24hrs 08/07/21 08/07/21 08/06/21 Range/Units 05:08 05:08 08:23 WBC 9.4 (4.8-10.8) x10^3/uL RBC 4.41 (4.20-5.40) 10^6/uL Hgb 13.4 (12.0-16.0) g/dL Hct 39.4 (37.0-47.0) % MCV 89.3 (81.0-99.0) fL MCH 30.4 (27.0-31.0) pg MCHC 34.0 (32.0-36.0) g/dL RDW 12.5 (12.0-15.0) % Plt Count 376 (130-450) 10^3/uL MPV 9.2 (7.9-10.8) fL Neut # (Auto) Not Reportable Lymph # (Auto) Not Reportable [place] # (Auto) Not Reportable Eos # (Auto) Not Reportable Baso # (Auto) Not Reportable Absolute Nucleated RBC Not Reportable Total Counted 100 Band Neuts % (Manual) 18 H (0 - 10) % Abnorm Lymph % (Manual) 0 % Nucleated RBC % Not Reportable Neutrophils # (Manual) 8.6 H (1.5-6.6) 10^3/uL Lymphocytes # (Manual) 0.8 L (1.5-3.5) 10^3/uL Monocytes # (Manual) 0.1 (0.0-1.0) 10^3/uL Eosinophils # (Manual) 0.0 (0-0.7) 10^3/uL Basophils # (Manual) 0.0 (0-0.1) 10^3/uL Differential Comment MANUAL DIFFERENTIAL Platelet Estimate NORMAL (130-450,000) (NORMAL) RBC Morph Micro Appear NORMAL APPEARANCE (NORMAL) Sodium 137 (135-145) mmol/L Potassium 3.1 L (3.5-5.0) mmol/L Chloride 106 (101-111) mmol/L Carbon Dioxide 20 L (21-32) mmol/L Anion Gap 11.0 (6-13) BUN 23 H (6-20) mg/dL Creatinine 0.6 (0.4-1.0) mg/dL Estimated GFR (MDRD) 100 (>89) Glucose 64 L (70-100) mg/dL POC Whole Bld Glucose (70 - 100) mg/dL Lactic Acid 2.2 (0.5-2.2) mmol/L Calcium 9.1 (8.5-10.3) mg/dL TSH (0.34-5.60) uIU/mL 08/06/21 08/04/21 Range/Units 04:50 22:14 WBC (4.8-10.8) x10^3/uL RBC (4.20-5.40) 10^6/uL Hgb (12.0-16.0) g/dL Hct (37.0-47.0) % MCV (81.0-99.0) fL MCH (27.0-31.0) pg MCHC (32.0-36.0) g/dL RDW (12.0-15.0) % Plt Count (130-450) 10^3/uL MPV (7.9-10.8) fL Neut # (Auto) Lymph # (Auto) [place] # (Auto) Eos # (Auto) Baso # (Auto) Absolute Nucleated RBC Total Counted Band Neuts % (Manual) (0 - 10) % Abnorm Lymph % (Manual) % Nucleated RBC % Neutrophils # (Manual) (1.5-6.6) 10^3/uL Lymphocytes # (Manual) (1.5-3.5) 10^3/uL Monocytes # (Manual) (0.0-1.0) 10^3/uL Eosinophils # (Manual) (0-0.7) 10^3/uL Basophils # (Manual) (0-0.1) 10^3/uL Differential Comment Platelet Estimate (NORMAL) RBC Morph Micro Appear (NORMAL) Sodium (135-145) mmol/L Potassium (3.5-5.0) mmol/L Chloride (101-111) mmol/L Carbon Dioxide (21-32) mmol/L Anion Gap (6-13) BUN (6-20) mg/dL Creatinine (0.4-1.0) mg/dL Estimated GFR (MDRD) (>89) Glucose (70-100) mg/dL POC Whole Bld Glucose 210 H (70 - 100) mg/dL Lactic Acid (0.5-2.2) mmol/L Calcium (8.5-10.3) mg/dL TSH 1.65 (0.34-5.60) uIU/mL ABX Reporting Has patient been on IV antibiotics over the past 48 hours?: Yes Assessment/Plan - Problem List (1) Severe sepsis Impression: The concern is that this is secondary to a perforated abdominal viscus. Her white count is within normal limits but she continues to have bands present. She was also febrile yesterday. Her lactic acid is now within normal limits. We will keep her on IV antibiotics but we will change this to cefepime and Flagyl as well as vancomycin for Enterococcus coverage. Blood cultures have been negative to date we will continue to follow these up. (2) Perforated abdominal viscus Impression: This appears to be the cause of her sepsis. Concern is for perforated diverticulitis and she is at risk for abscess development. We will keep her on a clear liquid diet as tolerated. Continue IV antibiotics with vancomycin, cefepime, Flagyl IV. This will provide coverage for Enterococcus as well as gram-negative's and anaerobes. The plan is to repeat the CT in 2 days to see if there has been development of an abscess that may potentially be drained by IR. Pain control with morphine as needed. Appreciate general surgery input. (3) Atrial fibrillation with RVR Impression: She has now converted back to sinus rhythm. I suspect her atrial fibrillation was is exacerbated by the sepsis and the hypokalemia. We will keep her on 5 mg of Lopressor IV every 6 hours. We are holding anticoagulation given she may need surgical intervention over the upcoming days. TSH was within normal limits. Will obtain echocardiogram. (4) Hypokalemia Impression: This is ongoing. Her potassium is decreased at 3.1. Her magnesium was also low at 1.6 yesterday. This was replaced and we will replace potassium intravenously today. Recheck magnesium.
[2021-08-07] MEDS ORDERED: VANCOMYCIN INJ 2 GM in SODIUM CHLORIDE 0.9% 500 ML IV ONE (10:00)
[2021-08-07] MEDS: BISACODYL 10 MG SUPP PR SCH (10:12)
[2021-08-07] MEDS: ASPIRIN CHEW 81 MG TABLET PO SCH (10:13)
[2021-08-07] MEDS: CEFEPIME 2 GM in SODIUM CHLORIDE 0.9% MINIBAG 100 ML IV SCH ×2 (10:23→21:22)
[2021-08-07] MEDS: ENOXAPARIN 40 MG/0.4 ML SYRINGE SUBQ SCH (10:23)
[2021-08-07] MEDS: POTASSIUM CHLOR 10 MEQ/100 ML 10 MEQ/100 ML BAG IV SCH ×4 (11:05→18:35)
--- NOTE | 2021-08-07 12:45 | PROVIDER PROGRESS NOTE ---
Subjective - General Admit Date: 08/04/21 Procedure Date: 07/10/21 Post Op Days: 28 - Review of Systems Wound/Incisions: positive: Healing well All Other Systems: positive: Reviewed and negative - Other Other Information/Narrative: Na reports that she is feeling a little better today. She says she is having less abdominal pain and less cramping and generally feeling more comfortable. She tells me that she had a very small stool this morning and passed a little flatus as well. Not really hungry.The patient tells me it is very difficult for her to have a bowel movement or to pass any gas without sitting on the toilet and she wants to know if she can get up and move around more. Objective - Patient Data Reviewed Vital Signs: Yes Vital Signs: Vital Signs x48h Temp Pulse Pulse Resp BP BP Pulse Ox 08/07/21 10:26 91 126/73 08/07/21 10:21 92 129/76 08/07/21 10:15 98 113/74 08/07/21 10:03 135/68 H 08/07/21 08:12 36.8 C 105 H 19 123/67 95 08/07/21 07:45 103 H 24 Intake & Output: Intake and Output Totals x24h 08/05/21 08/06/21 08/07/21 23:59 23:59 23:59 Intake Total 7694.173 5608.916 2038.000 Output Total 477 525 300 Balance 7217.173 5083.916 1738.000 - Lab Results Lab Results: 08/07/21 05:08 08/07/21 05:08 Other Lab Results: Lab Results x24hrs 08/07/21 08/07/21 08/07/21 Range/Units 05:08 05:08 05:08 WBC 9.4 (4.8-10.8) x10^3/uL RBC 4.41 (4.20-5.40) 10^6/uL Hgb 13.4 (12.0-16.0) g/dL Hct 39.4 (37.0-47.0) % MCV 89.3 (81.0-99.0) fL MCH 30.4 (27.0-31.0) pg MCHC 34.0 (32.0-36.0) g/dL RDW 12.5 (12.0-15.0) % Plt Count 376 (130-450) 10^3/uL MPV 9.2 (7.9-10.8) fL Neut # (Auto) Not Reportable Lymph # (Auto) Not Reportable [place] # (Auto) Not Reportable Eos # (Auto) Not Reportable Baso # (Auto) Not Reportable Absolute Nucleated RBC Not Reportable Total Counted 100 Band Neuts % (Manual) 18 H (0 - 10) % Abnorm Lymph % (Manual) 0 % Nucleated RBC % Not Reportable Neutrophils # (Manual) 8.6 H (1.5-6.6) 10^3/uL Lymphocytes # (Manual) 0.8 L (1.5-3.5) 10^3/uL Monocytes # (Manual) 0.1 (0.0-1.0) 10^3/uL Eosinophils # (Manual) 0.0 (0-0.7) 10^3/uL Basophils # (Manual) 0.0 (0-0.1) 10^3/uL Differential Comment MANUAL DIFFERENTIAL Platelet Estimate NORMAL (130-450,000) (NORMAL) RBC Morph Micro Appear NORMAL APPEARANCE (NORMAL) Sodium 137 (135-145) mmol/L Potassium 3.1 L (3.5-5.0) mmol/L Chloride 106 (101-111) mmol/L Carbon Dioxide 20 L (21-32) mmol/L Anion Gap 11.0 (6-13) BUN 23 H (6-20) mg/dL Creatinine 0.6 (0.4-1.0) mg/dL Estimated GFR (MDRD) 100 (>89) Glucose 64 L (70-100) mg/dL Calcium 9.1 (8.5-10.3) mg/dL Magnesium 2.1 (1.7-2.8) mg/dL TSH (0.34-5.60) uIU/mL 08/06/21 Range/Units 04:50 WBC (4.8-10.8) x10^3/uL RBC (4.20-5.40) 10^6/uL Hgb (12.0-16.0) g/dL Hct (37.0-47.0) % MCV (81.0-99.0) fL MCH (27.0-31.0) pg MCHC (32.0-36.0) g/dL RDW (12.0-15.0) % Plt Count (130-450) 10^3/uL MPV (7.9-10.8) fL Neut # (Auto) Lymph # (Auto) [place] # (Auto) Eos # (Auto) Baso # (Auto) Absolute Nucleated RBC Total Counted Band Neuts % (Manual) (0 - 10) % Abnorm Lymph % (Manual) % Nucleated RBC % Neutrophils # (Manual) (1.5-6.6) 10^3/uL Lymphocytes # (Manual) (1.5-3.5) 10^3/uL Monocytes # (Manual) (0.0-1.0) 10^3/uL Eosinophils # (Manual) (0-0.7) 10^3/uL Basophils # (Manual) (0-0.1) 10^3/uL Differential Comment Platelet Estimate (NORMAL) RBC Morph Micro Appear (NORMAL) Sodium (135-145) mmol/L Potassium (3.5-5.0) mmol/L Chloride (101-111) mmol/L Carbon Dioxide (21-32) mmol/L Anion Gap (6-13) BUN (6-20) mg/dL Creatinine (0.4-1.0) mg/dL Estimated GFR (MDRD) (>89) Glucose (70-100) mg/dL Calcium (8.5-10.3) mg/dL Magnesium (1.7-2.8) mg/dL TSH 1.65 (0.34-5.60) uIU/mL - Current Medications Current Medications: Current Medications Generic Name Dose Route Start Last Admin Trade Name Freq PRN Reason Stop Dose Admin Acetaminophen 650 mg 08/04/21 14:01 08/06/21 05:17 Acetaminophen 325 Mg Tablet PO 650 mg Q4HR PRN Administration PAIN Albuterol 2.5 mg 08/04/21 17:26 08/07/21 07:41 Albuterol Neb 2.5 Mg/3 Ml INH 2.5 mg RTQ4H PRN Administration Wheezing Aspirin 81 mg 08/05/21 09:00 08/07/21 10:13 Aspirin Chew 81 Mg Tablet PO Not Given DAILY [facility] Bisacodyl 10 mg 08/05/21 09:00 08/07/21 10:12 Bisacodyl 10 Mg Supp [place] 10 mg DAILY [facility] Administration Enoxaparin Sodium 40 mg 08/05/21 09:00 08/07/21 10:23 Enoxaparin 40 Mg/0.4 Ml Syringe SUBQ 40 mg DAILY [facility] Administration Sodium Chloride 1,000 mls @ 140 mls/hr 08/06/21 01:16 08/07/21 12:27 Normal Saline 0.9% IV Infused .Q7H9M [facility] Infusion Cefepime HCl 2 gm/ Sodium 100 mls @ 200 mls/hr 08/07/21 09:00 08/07/21 11:04 Chloride IV Infused BID [facility] Infusion Potassium Chloride 10 meq in 100 mls @ 100 mls/hr 08/07/21 09:00 08/07/21 12:27 Potassium Chloride IV 08/07/21 12:59 Infused Q1H [facility] Infusion Metoprolol Tartrate 5 mg 08/07/21 03:00 08/07/21 10:03 Metoprolol 5 Mg/5 Ml Vial IVP 5 mg Q6H [facility] Administration Morphine Sulfate 2 mg 08/06/21 10:21 08/06/21 10:50 Morphine 2 Mg/Ml Carpuject IVP 2 mg Q2HR PRN Administration PAIN Pantoprazole Sodium 40 mg 08/05/21 07:00 08/07/21 06:11 Pantoprazole 40 Mg Tablet PO 40 mg QDAC [facility] Administration Sodium Chloride 10 ml 08/04/21 17:00 08/07/21 03:49 Sodium Chloride Flush 0.9% 10 Ml Syringe IVP 10 ml 0100,0900,1700 [facility] Administration - Physical Exam General Appearance: positive: No acute distress, Alert Eyes Bilateral: positive: Normal inspection Respiratory: positive: No respiratory distress Abdomen: negative: Guarding, Rebound (Abdomen remains somewhat distended. It is less tender to palpation. Hypoactive bowel sounds.No rebound or guarding.) Skin: positive: Color nml Impression/Plan - Problem List Problem List: Perforated viscus with intraperitoneal free air and free fluid in the pelvis. She also has some free fluid up around the liver. 1.Evidence of sepsis in the last 48 hours has improved. Her white count was significantly better yesterday but today has gone in the opposite direction and she does have 18 bands.I will change her antibiotic to cefepime and vancomycin to avoid to the nephrotoxicity associated with Zosyn and vancomycin. We need vancomycin to cover the possibility of Enterococcus In the setting of this pelvic fluid collection and site of perforation that is unknown. We will continue Flagyl as well. 2. She is n.p.o. with ice chips only and will need to continue bowel rest. 3. We will ask anesthesia to place a PICC line so that she can get TPN as she has no evidence of GI function right now. It may be several more days before she can take adeqate po intake and we do not want to lose anymore nutritional ground. 4.We will repeat the CT scan of the abdomen and pelvis on Thursday to reevaluate the pelvic fluid collection and adjust our treatment. If she takes a step backwards or if any any other new concerning symptoms develop, will need to reconsider that decision and possibly do it sooner.This time frame was chosen to coincide with abscess development. 5. An episode of afib over night but back in sinus rhythm this morning.
--- NOTE | 2021-08-07 15:41 | XRAY Report ---
PROCEDURE: Chest 1 View X-Ray INDICATIONS: Hypoxia. Leg edema. TECHNIQUE: One view of the chest was acquired. COMPARISON: August 05, 2021 FINDINGS: SUPPORT DEVICES: None. LUNGS/PLEURA: Redemonstrated bibasilar densities, compatible with small pleural effusion/atelectasis. Mildly prominent upper lung zone interstitial markings. No pneumothorax. MEDIASTINUM: The cardiomediastinal silhouette is within normal limits. BONES/SOFT TISSUES: No acute osseous abnormality. Redemonstrated lucency possibly underneath the righ t diaphragm, which may represent the patient's previously demonstrated free intraperitoneal gas. IMPRESSION: 1.No significant interval change. Reviewed by: Tony Rodriguez MD on 08/07/2021 3:39 PM PST Approved by: Tony Rodriguez MD on 08/07/2021 3:39 PM PST Station ID: [id number]
[2021-08-07] MEDS: VANCOMYCIN INJ 1 GM, VANCOMYCIN INJ 250 MG in SODIUM CHLORIDE 0.9% 250 ML IV SCH (22:20)
[2021-08-08] MEDS: SODIUM CHLORIDE FLUSH 0.9% 10 ML SYRINGE IVP SCH ×3 (00:35→18:29)
--- NOTE | 2021-08-08 01:46 | Ultrasound Report ---
PROCEDURE: Duplex Ext Veins Bilateral INDICATIONS: CAITLYN YOUFRANCISCO TECHNIQUE: Real-time imaging, as well as color and pulse Doppler interrogation, were performed of the deep veins of both legs from the inguinal ligament to the popliteal fossa. COMPARISON: None. FINDINGS: The deep veins are normally compressible, and free of intraluminal thrombus. Color and pu lse Doppler demonstrate normal phasic intravascular flow. There is normal augmentation response to d istal compression maneuver. IMPRESSION: No evidence of DVT in visualized bilateral lower extremity veins. 4.6 x 2.2 x 3.3 cm cyst in left popliteal fossa. Reviewed by: Luke Rader MD on 08/08/2021 1:44 AM PST Approved by: Luke Rader MD on 08/08/2021 1:44 AM PST Station ID: [id number]
[2021-08-08] MEDS: METOPROLOL 5 MG/5 ML VIAL IVP SCH ×4 (03:48→21:41)
[2021-08-08] MEDS: SODIUM CHLORIDE 0.9% 1,000 ML IV SCH ×2 (03:52→09:51)
[2021-08-08 05:20] LABS: BASOPHILS % (AUTO) 0.1 %; EOSINOPHILS % (AUTO) 0.1 %; HCT - HEMATOCRIT 38.8 % (37.0-47.0); HGB - HEMOGLOBIN 12.9 g/dL (12.0-16.0); LYMPHOCYTES % (AUTO) 6.6 %; MEAN CORPUSCULAR HEMOGLOBIN 30.4 pg (27.0-31.0); MEAN CORPUSCULAR HGB CONC 33.2 g/dL (32.0-36.0); MEAN CORPUSCULAR VOLUME 91.5 fL (81.0-99.0); MEAN PLATELET VOLUME 8.7 fL (7.9-10.8); MONOCYTES % (AUTO) 2.8 %; NEUTROPHILS % (AUTO) 82.7 %; PLT - PLATELET COUNT 391 10^3/uL (130-450); RED BLOOD COUNT 4.24 10^6/uL (4.20-5.40); WHITE BLOOD COUNT 11.7 x10^3/uL (4.8-10.8)
[2021-08-08 05:23] LABS: CREATININE 0.6 mg/dL (0.4-1.0); MAGNESIUM 1.9 mg/dL (1.7-2.8); POTASSIUM 3.3 mmol/L (3.5-5.0)
[2021-08-08 05:24] LABS: ABNORMAL LYMPHS % (MANUAL) 0 %
[2021-08-08 05:51] LABS: BAND NEUTROPHILS % (MANUAL) 24 %; DIFFERENTIAL COMMENT MANUAL DIFFERENTIAL; LYMPHOCYTES # (MANUAL) 1.3 10^3/uL (1.5-3.5); LYMPHOCYTES % (MANUAL) 11 %; METAMYELOCYTES % (MANUAL) 1 %; MONOCYTES # (MANUAL) 0.8 10^3/uL (0.0-1.0); MYELOCYTES % (MANUAL) 1 %; NEUTROPHILS # (MANUAL) 9.4 10^3/uL (1.5-6.6); PLATELET ESTIMATE, MANUAL NORMAL (130-450,000) (NORMAL); RBC MORPHOLOGY (MULTIPLE) NORMAL APPEARANCE (NORMAL)
[2021-08-08] MEDS: ALBUTEROL NEB 2.5 MG/3 ML INH PRN ×3 (06:19→19:05)
[2021-08-08] MEDS: PANTOPRAZOLE 40 MG TABLET PO SCH (06:41)
[2021-08-08] MEDS: metroNIDAZOLE 500 MG/100 ML 500 MG/100 ML BAG IV SCH ×2 (06:53→16:10)
[2021-08-08] MEDS: ASPIRIN CHEW 81 MG TABLET PO SCH (08:19)
[2021-08-08] MEDS: ENOXAPARIN 40 MG/0.4 ML SYRINGE SUBQ SCH (08:20)
[2021-08-08] MEDS: BISACODYL 10 MG SUPP PR SCH (08:20)
[2021-08-08] MEDS: CEFEPIME 2 GM in SODIUM CHLORIDE 0.9% MINIBAG 100 ML IV SCH ×2 (08:20→21:48)
--- NOTE | 2021-08-08 09:16 | PROVIDER PROGRESS NOTE ---
Subjective - Prog Note Date Prog Note Date: 08/08/21 - Subjective Subjective: She continues to feel better each day. She would like some soda. Her pain is quite minimal. She did have another bowel movement today. She is concerned her legs are still edematous. Her dyspnea is quite minimal and only occurs at times. She finds relief with albuterol. Current Medications - Current Medications Current Medications: Active Medications Acetaminophen (Acetaminophen 325 Mg Tablet) 650 mg PO Q4HR PRN PRN Reason: PAIN Last Admin: 08/06/21 05:17 Dose: 650 mg Albuterol (Albuterol Neb 2.5 Mg/3 Ml) 2.5 mg INH RTQ4H PRN PRN Reason: Wheezing Last Admin: 08/08/21 06:19 Dose: 2.5 mg Aspirin (Aspirin Chew 81 Mg Tablet) 81 mg PO DAILY [facility] Last Admin: 08/08/21 08:19 Dose: Not Given Bisacodyl (Bisacodyl 10 Mg Supp) 10 mg MI DAILY [facility] Last Admin: 08/08/21 08:20 Dose: 10 mg Enoxaparin Sodium (Enoxaparin 40 Mg/0.4 Ml Syringe) 40 mg SUBQ DAILY [facility] Last Admin: 08/08/21 08:20 Dose: 40 mg Sodium Chloride (Normal Saline 0.9%) 1,000 mls @ 140 mls/hr IV .Q7H9M [facility] Last Infusion: 08/08/21 13:12 Dose: 140 mls/hr Cefepime HCl 2 gm/ Sodium (Chloride) 100 mls @ 200 mls/hr IV BID [facility] Last Infusion: 08/08/21 09:37 Dose: Infused Vancomycin HCl 1 gm/Vancomycin HCl 250 mg/ Sodium Chloride 250 mls @ 167 mls/hr IV Q12H [facility] Last Infusion: 08/08/21 12:58 Dose: Infused Metronidazole (Flagyl 500 Mg/100 Ml) 500 mg in 100 mls @ 100 mls/hr IV Q8H [facility] Last Infusion: 08/08/21 08:18 Dose: Infused Metoprolol Tartrate (Metoprolol 5 Mg/5 Ml Vial) 5 mg IVP Q6H [facility] Last Admin: 08/08/21 08:21 Dose: 5 mg Mineral Oil (Min Oil/Dimethicon/Coconut Oil 92 Gm Tube) 1 applic TOP PRN PRN PRN Reason: Skin Care Morphine Sulfate (Morphine 2 Mg/Ml Carpuject) 2 mg IVP Q2HR PRN PRN Reason: PAIN Last Admin: 08/06/21 10:50 Dose: 2 mg Pantoprazole Sodium (Pantoprazole 40 Mg Tablet) 40 mg PO QDAC [facility] Last Admin: 08/08/21 06:41 Dose: 40 mg Sodium Chloride (Sodium Chloride Flush 0.9% 10 Ml Syringe) 10 ml IVP 0100,0900,1700 [facility] Last Admin: 08/08/21 08:23 Dose: Not Given Sodium Chloride (Sodium Chloride Flush 0.9% 10 Ml Syringe) 10 ml IVP PRN PRN PRN Reason: NEEDED PER PROVIDER ORDERS Albuterol Sulf [Ventolin Hfa Inhaler] 2 puffs INH Q4H PRN 06/12/16 Aspirin 81 mg PO DAILY 06/12/16 lisinopriL [Lisinopril] 20 mg PO DAILY 06/12/16 polyethylene glycoL 3350 [Miralax] 17 gm PO DAILY 08/04/21 Objective - Vital Signs/Intake & Output Reviewed Vital Signs: Yes Vital Signs: Vital Signs x48h Temp Pulse Pulse Pulse Resp BP BP 08/08/21 08:50 94 150/81 H 08/08/21 08:45 95 160/86 H 08/08/21 08:40 99 143/85 H 08/08/21 08:21 166/82 H 08/08/21 07:45 36.7 C 115 H 16 135/81 H 08/08/21 06:19 92 20 08/08/21 04:55 37.0 C 94 20 144/86 H 08/08/21 03:48 145/82 H 08/08/21 02:00 92 18 08/08/21 01:34 36.8 C 73 18 143/79 H Pulse Ox 08/08/21 08:50 08/08/21 08:45 08/08/21 08:40 08/08/21 08:21 08/08/21 07:45 94 08/08/21 06:19 08/08/21 04:55 94 08/08/21 03:48 08/08/21 02:00 08/08/21 01:34 93 Intake & Output: Intake & Output 08/05/21 08/06/21 08/07/21 08/08/21 23:59 23:59 23:59 23:59 Intake Total 7694.173 5608.916 4138.000 970.667 Output Total 477 525 425 425 Balance 7217.173 5083.916 3713.000 545.667 - Objective General Appearance: positive: No acute distress, Alert Eyes Bilateral: positive: Normal inspection, Conjunctivae nml ENT: positive: ENT inspection nml Neck: positive: Nml inspection Respiratory: positive: Rales. negative: Wheezes Cardiovascular: positive: Tachycardia. negative: Irregularly irregular, Systolic murmur Abdomen: positive: No distention, Tenderness (In the lower quadrants, predominantly left sided.). negative: Non-tender Skin: positive: Warm, Dry Extremities: positive: Pedal edema (+1 to +2 edema in bilateral lower extremities.) Neurologic/Psychiatric: negative: Disoriented to person, Disoriented to place - Lab Results Fish Bones: 08/08/21 05:01 08/08/21 14:59 Other Labs: Lab Results x24hrs 08/08/21 08/08/21 08/07/21 Range/Units 05:01 05:01 05:08 WBC 11.7 H (4.8-10.8) x10^3/uL RBC 4.24 (4.20-5.40) 10^6/uL Hgb 12.9 (12.0-16.0) g/dL Hct 38.8 (37.0-47.0) % MCV 91.5 (81.0-99.0) fL MCH 30.4 (27.0-31.0) pg MCHC 33.2 (32.0-36.0) g/dL RDW 13.0 (12.0-15.0) % Plt Count 391 (130-450) 10^3/uL MPV 8.7 (7.9-10.8) fL Neut # (Auto) Not Reportable Lymph # (Auto) Not Reportable [place] # (Auto) Not Reportable Eos # (Auto) Not Reportable Baso # (Auto) Not Reportable Absolute Nucleated RBC Not Reportable Total Counted 100 Band Neuts % (Manual) 24 H (0 - 10) % Abnorm Lymph % (Manual) 0 % Metamyelocytes % 1 H ( - 0) % Myelocytes % 1 H ( - 0) % Nucleated RBC % Not Reportable Neutrophils # (Manual) 9.4 H (1.5-6.6) 10^3/uL Lymphocytes # (Manual) 1.3 L (1.5-3.5) 10^3/uL Monocytes # (Manual) 0.8 (0.0-1.0) 10^3/uL Eosinophils # (Manual) 0.0 (0-0.7) 10^3/uL Basophils # (Manual) 0.0 (0-0.1) 10^3/uL Differential Comment MANUAL DIFFERENTIAL Platelet Estimate NORMAL (130-450,000) (NORMAL) RBC Morph Micro Appear NORMAL APPEARANCE (NORMAL) Sodium 139 (135-145) mmol/L Potassium 3.3 L (3.5-5.0) mmol/L Chloride 110 (101-111) mmol/L Carbon Dioxide 16 L (21-32) mmol/L Anion Gap 13.0 (6-13) BUN 22 H (6-20) mg/dL Creatinine 0.6 (0.4-1.0) mg/dL Estimated GFR (MDRD) 100 (>89) Glucose 71 (70-100) mg/dL Calcium 9.0 (8.5-10.3) mg/dL Magnesium 1.9 2.1 (1.7-2.8) mg/dL Assessment/Plan - Problem List (1) Severe sepsis Impression: Secondary to perforated viscus and likely abscess. Her white count is increasing and she continues to have bands. She has been afebrile and blood cultures are negative to date. Her bicarbonate is also decreased today at 16. We will obtain a CT tomorrow for evaluation of his fluid collection and then will discuss with radiology regarding potential intervention. Continue on antibiotics with vancomycin, Ceftin, Flagyl IV. We will recheck a lactic acid. (2) Perforated abdominal viscus Impression: This is a likely cause of her sepsis and the concern is for an associated abscess. Her white blood cell count has increased and she continues to have bands. The plan is to repeat CT tomorrow to evaluate for fluid collection. We will continue vancomycin, cefepime, Flagyl IV. If there is a fluid collection then we will ask IR to drain it based off of the location. Appreciate general surgery input. (3) Atrial fibrillation with RVR Impression: She is no longer in atrial fibrillation. She is in a sinus rhythm. Echocardiogram showed a normal left atrium and a preserved ejection fraction. This was likely exacerbated by the sepsis. We will keep her on Lopressor 5 mg IV every 6 hours. No anticoagulation as she will likely need intervention. We will discuss anticoagulation in the future. (4) Lower extremity edema Impression: Suspect this is related to the aggressive IV fluid resuscitation she received. Echocardiogram showed no evidence of heart failure. Duplex was negative for DVT. We will hold off on further IV addition of the time but we will also not diurese her at the moment. We will consider diuresis if she becomes hypoxic. (5) Hypokalemia Impression: Improved but ongoing. Continue with IV supplementation.
[2021-08-08] MEDS: POTASSIUM CHLOR 10 MEQ/100 ML 10 MEQ/100 ML BAG IV SCH ×4 (09:50→16:20)
--- NOTE | 2021-08-08 10:50 | PROVIDER PROGRESS NOTE ---
Subjective - General Admit Date: 08/04/21 Procedure Date: 07/10/21 Post Op Days: 29 - Review of Systems All Other Systems: positive: Reviewed and negative - Other Other Information/Narrative: Answered reports that she is actually feeling better today than yesterday. She is worried about all the swelling in her legs and Louie but she says that her abdomen feels a little better. Still not really passing flatus. She thinks her pain is better and she passes little bits at a time but not a lot.An episode of tachycardia last night prompted a venous duplex which was normal.She has not required morphine in more than 24 hours. Objective - Patient Data Vital Signs: Vital Signs x48h Temp Pulse Pulse Pulse Resp BP BP 08/08/21 08:50 94 150/81 H 08/08/21 08:45 95 160/86 H 08/08/21 08:40 99 143/85 H 08/08/21 08:21 166/82 H 08/08/21 07:45 36.7 C 115 H 16 135/81 H 08/08/21 06:19 92 20 08/08/21 04:55 37.0 C 94 20 144/86 H 08/08/21 03:48 145/82 H Pulse Ox 08/08/21 08:50 08/08/21 08:45 08/08/21 08:40 08/08/21 08:21 08/08/21 07:45 94 08/08/21 06:19 08/08/21 04:55 94 08/08/21 03:48 Intake & Output: Intake and Output Totals x24h 08/06/21 08/07/21 08/08/21 23:59 23:59 23:59 Intake Total 5608.916 4138.000 1101.000 Output Total 525 425 425 Balance 5083.916 3713.000 676.000 - Lab Results Lab Results: 08/08/21 05:01 08/08/21 05:01 Other Lab Results: Lab Results x24hrs 08/08/21 08/08/21 Range/Units 05:01 05:01 WBC 11.7 H (4.8-10.8) x10^3/uL RBC 4.24 (4.20-5.40) 10^6/uL Hgb 12.9 (12.0-16.0) g/dL Hct 38.8 (37.0-47.0) % MCV 91.5 (81.0-99.0) fL MCH 30.4 (27.0-31.0) pg MCHC 33.2 (32.0-36.0) g/dL RDW 13.0 (12.0-15.0) % Plt Count 391 (130-450) 10^3/uL MPV 8.7 (7.9-10.8) fL Neut # (Auto) Not Reportable Lymph # (Auto) Not Reportable [place] # (Auto) Not Reportable Eos # (Auto) Not Reportable Baso # (Auto) Not Reportable Absolute Nucleated RBC Not Reportable Total Counted 100 Band Neuts % (Manual) 24 H (0 - 10) % Abnorm Lymph % (Manual) 0 % Metamyelocytes % 1 H ( - 0) % Myelocytes % 1 H ( - 0) % Nucleated RBC % Not Reportable Neutrophils # (Manual) 9.4 H (1.5-6.6) 10^3/uL Lymphocytes # (Manual) 1.3 L (1.5-3.5) 10^3/uL Monocytes # (Manual) 0.8 (0.0-1.0) 10^3/uL Eosinophils # (Manual) 0.0 (0-0.7) 10^3/uL Basophils # (Manual) 0.0 (0-0.1) 10^3/uL Differential Comment MANUAL DIFFERENTIAL Platelet Estimate NORMAL (130-450,000) (NORMAL) RBC Morph Micro Appear NORMAL APPEARANCE (NORMAL) Sodium 139 (135-145) mmol/L Potassium 3.3 L (3.5-5.0) mmol/L Chloride 110 (101-111) mmol/L Carbon Dioxide 16 L (21-32) mmol/L Anion Gap 13.0 (6-13) BUN 22 H (6-20) mg/dL Creatinine 0.6 (0.4-1.0) mg/dL Estimated GFR (MDRD) 100 (>89) Glucose 71 (70-100) mg/dL Calcium 9.0 (8.5-10.3) mg/dL Magnesium 1.9 (1.7-2.8) mg/dL - Current Medications Current Medications: Current Medications Generic Name Dose Route Start Last Admin Trade Name Freq PRN Reason Stop Dose Admin Acetaminophen 650 mg 08/04/21 14:01 08/06/21 05:17 Acetaminophen 325 Mg Tablet PO 650 mg Q4HR PRN Administration PAIN Albuterol 2.5 mg 08/04/21 17:26 08/08/21 06:19 Albuterol Neb 2.5 Mg/3 Ml INH 2.5 mg RTQ4H PRN Administration Wheezing Aspirin 81 mg 08/05/21 09:00 08/08/21 08:19 Aspirin Chew 81 Mg Tablet PO Not Given DAILY [facility] Bisacodyl 10 mg 08/05/21 09:00 08/08/21 08:20 Bisacodyl 10 Mg Supp [place] 10 mg DAILY [facility] Administration Enoxaparin Sodium 40 mg 08/05/21 09:00 08/08/21 08:20 Enoxaparin 40 Mg/0.4 Ml Syringe SUBQ 40 mg DAILY [facility] Administration Sodium Chloride 1,000 mls @ 140 mls/hr 08/06/21 01:16 08/08/21 09:51 Normal Saline 0.9% IV 140 mls/hr .Q7H9M [facility] Administration Cefepime HCl 2 gm/ Sodium 100 mls @ 200 mls/hr 08/07/21 09:00 08/08/21 09:37 Chloride IV Infused BID [facility] Infusion Vancomycin HCl 1 gm/ 250 mls @ 167 mls/hr 08/07/21 22:00 08/08/21 00:08 Vancomycin HCl 250 mg/ Sodium IV Infused Chloride Q12H [facility] Infusion Metronidazole 500 mg in 100 mls @ 100 mls/hr 08/07/21 15:00 08/08/21 08:18 Flagyl 500 Mg/100 Ml IV Infused Q8H [facility] Infusion Potassium Chloride 10 meq in 100 mls @ 100 mls/hr 08/08/21 10:00 08/08/21 09:50 Potassium Chloride IV 08/08/21 13:59 100 mls/hr Q1H [facility] Administration Metoprolol Tartrate 5 mg 08/07/21 03:00 08/08/21 08:21 Metoprolol 5 Mg/5 Ml Vial IVP 5 mg Q6H [facility] Administration Morphine Sulfate 2 mg 08/06/21 10:21 08/06/21 10:50 Morphine 2 Mg/Ml Carpuject IVP 2 mg Q2HR PRN Administration PAIN Pantoprazole Sodium 40 mg 08/05/21 07:00 08/08/21 06:41 Pantoprazole 40 Mg Tablet PO 40 mg QDAC [facility] Administration Sodium Chloride 10 ml 08/04/21 17:00 08/08/21 08:23 Sodium Chloride Flush 0.9% 10 Ml Syringe IVP Not Given 0100,0900,1700 [facility] - Physical Exam Extremities: positive: Other (Significant leg and calf edema bilaterally) Comments/Other: Abdomen is tender and remains distended. She has positive bowel sounds. A little less tender to palpation with no rebound or guarding. ABX Reporting Has patient been on IV antibiotics over the past 48 hours?: Yes Impression/Plan - Problem List Problem List: Perforated viscus, likely diverticulitis. Tomorrow will be hospital day #5 on antibiotics. I will request a CT scan of the abdomen and pelvis to evaluate for abscess. Additionally, we are going to place a PICC line and start total parenteral nutrition. She has a significant ileus and has not been able to take much p.o. although she is telling me she is feeling hungrier today and I can add some clear liquids.
[2021-08-08] MEDS: VANCOMYCIN INJ 1 GM, VANCOMYCIN INJ 250 MG in SODIUM CHLORIDE 0.9% 250 ML IV SCH ×2 (11:01→22:38)
[2021-08-08 15:15] LABS: CREATININE 0.7 mg/dL (0.4-1.0); POTASSIUM 3.6 mmol/L (3.5-5.0)
[2021-08-08] MEDS: D5.45NS W/20 MEQ KCL 1,000 ML IV SCH (18:24)
[2021-08-09] MEDS: metroNIDAZOLE 500 MG/100 ML 500 MG/100 ML BAG IV SCH ×3 (00:41→21:37)
[2021-08-09] MEDS: SODIUM CHLORIDE FLUSH 0.9% 10 ML SYRINGE IVP SCH ×3 (00:42→21:32)
[2021-08-09] MEDS: METOPROLOL 5 MG/5 ML VIAL IVP SCH ×4 (04:12→21:11)
[2021-08-09] MEDS: MORPHINE 2 MG/ML CARPUJECT IVP PRN (04:26)
[2021-08-09] MEDS ORDERED: iohexoL-300 100 ML VIAL ONE (05:05)
[2021-08-09 06:23] LABS: BASOPHILS % (AUTO) 0.1 %; EOSINOPHILS % (AUTO) 0.1 %; HCT - HEMATOCRIT 41.7 % (37.0-47.0); HGB - HEMOGLOBIN 13.7 g/dL (12.0-16.0); LYMPHOCYTES % (AUTO) 5.2 %; MEAN CORPUSCULAR HEMOGLOBIN 30.3 pg (27.0-31.0); MEAN CORPUSCULAR HGB CONC 32.9 g/dL (32.0-36.0); MEAN CORPUSCULAR VOLUME 92.3 fL (81.0-99.0); MEAN PLATELET VOLUME 8.8 fL (7.9-10.8); MONOCYTES % (AUTO) 5.6 %; NEUTROPHILS % (AUTO) 81.2 %; PLT - PLATELET COUNT 389 10^3/uL (130-450); RED BLOOD COUNT 4.52 10^6/uL (4.20-5.40); RED CELL DISTRIBUTION WIDTH 13.2 % (12.0-15.0); WHITE BLOOD COUNT 12.6 x10^3/uL (4.8-10.8)
[2021-08-09 06:29] LABS: ABNORMAL LYMPHS % (MANUAL) 0 %
[2021-08-09 06:57] LABS: BAND NEUTROPHILS % (MANUAL) 33 %; LYMPHOCYTES # (MANUAL) 2.1 10^3/uL (1.5-3.5); LYMPHOCYTES % (MANUAL) 17 %; MONOCYTES # (MANUAL) 1.3 10^3/uL (0.0-1.0); NEUTROPHILS # (MANUAL) 9.2 10^3/uL (1.5-6.6)
[2021-08-09 06:58] LABS: DIFFERENTIAL COMMENT MANUAL DIFFERENTIAL; PLATELET ESTIMATE, MANUAL NORMAL (130-450,000) (NORMAL); RBC MORPHOLOGY (MULTIPLE) NORMAL APPEARANCE (NORMAL)
[2021-08-09] MEDS: PANTOPRAZOLE 40 MG TABLET PO SCH (08:01)
[2021-08-09] MEDS: BISACODYL 10 MG SUPP PR SCH (08:28)
--- NOTE | 2021-08-09 08:29 | PROVIDER PROGRESS NOTE ---
Subjective - Prog Note Date Prog Note Date: 08/09/21 - Subjective Subjective: She feels well and improved each day. She feels distended and constipated. No dyspnea. Current Medications - Current Medications Current Medications: Active Medications Acetaminophen (Acetaminophen 325 Mg Tablet) 650 mg PO Q4HR PRN PRN Reason: PAIN Last Admin: 08/06/21 05:17 Dose: 650 mg Albuterol (Albuterol Neb 2.5 Mg/3 Ml) 2.5 mg INH RTQ4H PRN PRN Reason: Wheezing Last Admin: 08/09/21 15:14 Dose: 2.5 mg Aspirin (Aspirin Chew 81 Mg Tablet) 81 mg PO DAILY [facility] Last Admin: 08/09/21 10:24 Dose: 81 mg Bisacodyl (Bisacodyl 10 Mg Supp) 10 mg OH DAILY [facility] Last Admin: 08/09/21 08:28 Dose: 10 mg Enoxaparin Sodium (Enoxaparin 40 Mg/0.4 Ml Syringe) 40 mg SUBQ DAILY [facility] Last Admin: 08/09/21 10:24 Dose: 40 mg Cefepime HCl 2 gm/ Sodium (Chloride) 100 mls @ 200 mls/hr IV BID [facility] Last Infusion: 08/09/21 09:18 Dose: Infused Vancomycin HCl 1 gm/Vancomycin HCl 250 mg/ Sodium Chloride 250 mls @ 167 mls/hr IV Q12H [facility] Last Infusion: 08/09/21 11:51 Dose: Infused Metronidazole (Flagyl 500 Mg/100 Ml) 500 mg in 100 mls @ 100 mls/hr IV Q8H [facility] Last Infusion: 08/09/21 10:19 Dose: Infused Potassium Chloride/Dextrose/Sod Cl (D5.45ns W/20 Meq Kcl) 1,000 mls @ 75 mls/hr IV .[id number] [facility] Last Admin: 08/09/21 14:42 Dose: 75 mls/hr Metoprolol Tartrate (Metoprolol 5 Mg/5 Ml Vial) 5 mg IVP Q6H [facility] Last Admin: 08/09/21 14:42 Dose: 5 mg Mineral Oil (Min Oil/Dimethicon/Coconut Oil 92 Gm Tube) 1 applic TOP PRN PRN PRN Reason: Skin Care Morphine Sulfate (Morphine 2 Mg/Ml Carpuject) 2 mg IVP Q2HR PRN PRN Reason: PAIN Last Admin: 08/09/21 04:26 Dose: 2 mg Pantoprazole Sodium (Pantoprazole 40 Mg Tablet) 40 mg PO QDAC [facility] Last Admin: 08/09/21 08:01 Dose: 40 mg Sodium Chloride (Sodium Chloride Flush 0.9% 10 Ml Syringe) 10 ml IVP 0100,0900,1700 [facility] Last Admin: 08/09/21 04:26 Dose: 10 ml Sodium Chloride (Sodium Chloride Flush 0.9% 10 Ml Syringe) 10 ml IVP PRN PRN PRN Reason: NEEDED PER PROVIDER ORDERS Albuterol Sulf [Ventolin Hfa Inhaler] 2 puffs INH Q4H PRN 06/12/16 Aspirin 81 mg PO DAILY 06/12/16 lisinopriL [Lisinopril] 20 mg PO DAILY 06/12/16 polyethylene glycoL 3350 [Miralax] 17 gm PO DAILY 08/04/21 Objective - Vital Signs/Intake & Output Reviewed Vital Signs: Yes Vital Signs: Vital Signs x48h Temp Pulse Pulse Pulse Resp BP BP 08/09/21 07:55 104 H 20 145/87 H 08/09/21 04:31 97 159/97 H 08/09/21 04:19 36.3 C L 92 16 144/77 H 08/09/21 04:12 148/87 H 08/09/21 00:57 118 H 20 08/09/21 00:53 36.7 C 103 H 24 154/87 H Pulse Ox 08/09/21 07:55 94 08/09/21 04:31 08/09/21 04:19 08/09/21 04:12 08/09/21 00:57 08/09/21 00:53 95 Intake & Output: Intake & Output 08/06/21 08/07/21 08/08/21 08/09/21 23:59 23:59 23:59 23:59 Intake Total 5608.916 4138.000 3571.667 350.333 Output Total 539 095 8623 250 Balance 5083.916 3713.000 2571.667 100.333 - Objective General Appearance: positive: No acute distress, Alert Eyes Bilateral: positive: Normal inspection, Conjunctivae nml ENT: positive: ENT inspection nml Neck: positive: Nml inspection Respiratory: positive: No respiratory distress, Other (Diminished in bases.). negative: Wheezes, Rales Cardiovascular: positive: Tachycardia. negative: Irregularly irregular, Systolic murmur Abdomen: positive: Tenderness (In lower quadrants.l). negative: Guarding, Rebound Extremities: positive: Pedal edema (+2 edema in bilateral lower extremities.) Neurologic/Psychiatric: positive: Motor nml. negative: Disoriented to person, Disoriented to place - Lab Results Fish Bones: 08/10/21 04:15 08/10/21 06:25 Other Labs: Lab Results x24hrs 08/09/21 08/09/21 08/09/21 Range/Units 06:05 06:04 00:50 WBC 12.6 H (4.8-10.8) x10^3/uL RBC 4.52 (4.20-5.40) 10^6/uL Hgb 13.7 (12.0-16.0) g/dL Hct 41.7 (37.0-47.0) % MCV 92.3 (81.0-99.0) fL MCH 30.3 (27.0-31.0) pg MCHC 32.9 (32.0-36.0) g/dL RDW 13.2 (12.0-15.0) % Plt Count 389 (130-450) 10^3/uL MPV 8.8 (7.9-10.8) fL Neut # (Auto) Not Reportable Lymph # (Auto) Not Reportable Coles # (Auto) Not Reportable Eos # (Auto) Not Reportable Baso # (Auto) Not Reportable Absolute Nucleated RBC Not Reportable Total Counted 100 Band Neuts % (Manual) 33 H (0 - 10) % Abnorm Lymph % (Manual) 0 % Nucleated RBC % Not Reportable Neutrophils # (Manual) 9.2 H (1.5-6.6) 10^3/uL Lymphocytes # (Manual) 2.1 (1.5-3.5) 10^3/uL Monocytes # (Manual) 1.3 H (0.0-1.0) 10^3/uL Eosinophils # (Manual) 0.0 (0-0.7) 10^3/uL Basophils # (Manual) 0.0 (0-0.1) 10^3/uL Differential Comment MANUAL DIFFERENTIAL Platelet Estimate NORMAL (130-450,000) (NORMAL) RBC Morph Micro Appear NORMAL APPEARANCE (NORMAL) Sodium (135-145) mmol/L Potassium (3.5-5.0) mmol/L Chloride (101-111) mmol/L Carbon Dioxide (21-32) mmol/L Anion Gap (6-13) BUN (6-20) mg/dL Creatinine (0.4-1.0) mg/dL Estimated GFR (MDRD) (>89) Glucose (70-100) mg/dL POC Whole Bld Glucose 135 H 121 H (70 - 100) mg/dL Lactic Acid (0.5-2.2) mmol/L Calcium (8.5-10.3) mg/dL 08/08/21 08/08/21 08/08/21 Range/Units 20:22 18:14 14:59 WBC (4.8-10.8) x10^3/uL RBC (4.20-5.40) 10^6/uL Hgb (12.0-16.0) g/dL Hct (37.0-47.0) % MCV (81.0-99.0) fL MCH (27.0-31.0) pg MCHC (32.0-36.0) g/dL RDW (12.0-15.0) % Plt Count (130-450) 10^3/uL MPV (7.9-10.8) fL Neut # (Auto) Lymph # (Auto) Coles # (Auto) Eos # (Auto) Baso # (Auto) Absolute Nucleated RBC Total Counted Band Neuts % (Manual) (0 - 10) % Abnorm Lymph % (Manual) % Nucleated RBC % Neutrophils # (Manual) (1.5-6.6) 10^3/uL Lymphocytes # (Manual) (1.5-3.5) 10^3/uL Monocytes # (Manual) (0.0-1.0) 10^3/uL Eosinophils # (Manual) (0-0.7) 10^3/uL Basophils # (Manual) (0-0.1) 10^3/uL Differential Comment Platelet Estimate (NORMAL) RBC Morph Micro Appear (NORMAL) Sodium 138 (135-145) mmol/L Potassium 3.6 (3.5-5.0) mmol/L Chloride 109 (101-111) mmol/L Carbon Dioxide 15 L (21-32) mmol/L Anion Gap 14.0 H (6-13) BUN 21 H (6-20) mg/dL Creatinine 0.7 (0.4-1.0) mg/dL Estimated GFR (MDRD) 83 L (>89) Glucose 69 L (70-100) mg/dL POC Whole Bld Glucose 119 H 107 H (70 - 100) mg/dL Lactic Acid (0.5-2.2) mmol/L Calcium 9.0 (8.5-10.3) mg/dL 08/08/21 Range/Units 14:59 WBC (4.8-10.8) x10^3/uL RBC (4.20-5.40) 10^6/uL Hgb (12.0-16.0) g/dL Hct (37.0-47.0) % MCV (81.0-99.0) fL MCH (27.0-31.0) pg MCHC (32.0-36.0) g/dL RDW (12.0-15.0) % Plt Count (130-450) 10^3/uL MPV (7.9-10.8) fL Neut # (Auto) Lymph # (Auto) Coles # (Auto) Eos # (Auto) Baso # (Auto) Absolute Nucleated RBC Total Counted Band Neuts % (Manual) (0 - 10) % Abnorm Lymph % (Manual) % Nucleated RBC % Neutrophils # (Manual) (1.5-6.6) 10^3/uL Lymphocytes # (Manual) (1.5-3.5) 10^3/uL Monocytes # (Manual) (0.0-1.0) 10^3/uL Eosinophils # (Manual) (0-0.7) 10^3/uL Basophils # (Manual) (0-0.1) 10^3/uL Differential Comment Platelet Estimate (NORMAL) RBC Morph Micro Appear (NORMAL) Sodium (135-145) mmol/L Potassium (3.5-5.0) mmol/L Chloride (101-111) mmol/L Carbon Dioxide (21-32) mmol/L Anion Gap (6-13) BUN (6-20) mg/dL Creatinine (0.4-1.0) mg/dL Estimated GFR (MDRD) (>89) Glucose (70-100) mg/dL POC Whole Bld Glucose (70 - 100) mg/dL Lactic Acid 1.0 (0.5-2.2) mmol/L Calcium (8.5-10.3) mg/dL ABX Reporting Has patient been on IV antibiotics over the past 48 hours?: Yes Assessment/Plan - Problem List (1) Severe sepsis Impression: This is secondary to the perforated abdominal viscus. She remains afebrile with negative blood cultures but her white count continues to rise she now has over 30% bands. We will keep her on vancomycin, cefepime, Flagyl IV. The plan is to either transfer to higher level care for surgical intervention or operate on her here if he cannot find a bed. Continue broad-spectrum IV antibiotics. (2) Perforated abdominal viscus Impression: This is the cause of her sepsis. Repeat CT today showed worsening pneumoperit oneum and ascites that is most definitely infected. The plan is to either operate on her here with a diverting colostomy or transfer to higher level of care if a bed is available somewhere. If this cannot be done in a timely fashion then we will be forced to operate on her this afternoon. I have spoken with the [facility] but they do not have any beds available at the moment. I called [facility] in [place] but there was no answer. I then spoke with [facility] and they inform me that they will attempt to find a bed for the patient but there are no guarantees. I informed him that if he cannot find a bed by this afternoon then we will operate on her here. (3) Atrial fibrillation with RVR Impression: She remains in sinus rhythm now. This was exacerbated by her sepsis. Echocardiogram showed preserved ejection fraction with normal left atrial volume index. We will continue IV Lopressor for rate control. No anticoagulation as she will be undergoing surgical intervention. (4) Lower extremity edema Impression: This is likely secondary to the IV fluid resuscitation she received. We cut down on her IV fluids yesterday afternoon. She will need diuresis and we will consider this after surgical intervention. Fortunately she is not hypoxic at this time and I discussed with her that she will mobilize this fluid over the next few weeks. Duplex was negative for DVT. (5) Hypokalemia Impression: REsolved.
[2021-08-09] MEDS: CEFEPIME 2 GM in SODIUM CHLORIDE 0.9% MINIBAG 100 ML IV SCH ×2 (08:30→21:45)
[2021-08-09 08:48] LABS: POTASSIUM 4.2 mmol/L (3.5-5.0)
[2021-08-09 08:49] LABS: CALCIUM 9.3 mg/dL (8.5-10.3); CREATININE 0.7 mg/dL (0.4-1.0); MAGNESIUM 1.9 mg/dL (1.7-2.8); PHOSPHORUS 2.2 mg/dL (2.5-4.6)
[2021-08-09 08:51] LABS: ALBUMIN 2.1 g/dL (3.2-5.5); ALBUMIN/GLOBULIN RATIO 0.6 (1.0-2.2); TOTAL PROTEIN 5.5 g/dL (6.7-8.2)
[2021-08-09 09:27] LABS: VANCOMYCIN,TROUGH 15.4 ug/mL (10.0-20.0); VBG BASE EXCESS -4.2 mmol/L (-2 - +2); VBG HCO3 18.9 mmol/L (23-28); VBG OXYGEN SATURATION 95.7 % (60-80); VBG PCO2 29.5 mmHg (41-51); VBG PH 7.424 (7.31-7.41); VBG PO2 75.4 mmHg (25-47); VBG TOTAL CO2 19.8 mmol/L (24-29)
--- NOTE | 2021-08-09 09:49 | CT Report ---
PROCEDURE: Abdomen/Pelvis W INDICATIONS: Pelvic abscess CONTRAST: IV CONTRAST: Isovue 300 ml: 100 PO CONTRAST: *NO PO CONTRAST TECHNIQUE: After the administration of intravenous contrast, 5 mm thick sections acquired from the diaphragms to the symphysis. 5 mm thick coronal and sagittal reformats were acquired. For radiation dose reducti on, the following was used: automated exposure control, adjustment of mA and/or kV according to sierra ent size. COMPARISON: CT abdomen and pelvis 08/04/2021. FINDINGS: Image quality: Excellent. ABDOMEN: Lung bases: Small bilateral pleural effusions are new. Small consolidations at the lung bases is most consistent with compressive atelectasis. Mild opacity in the right middle lobe appears similar. Hear t size is within normal limits. Large hiatal hernia. Solid organs: Small cyst at the inferior right lobe of liver. Gallbladder is absent. Biliary system is non dilated. Pancreas enhances normally. No splenomegaly. No adrenal nodules. Kidneys demonstrat e normal size and enhancement, without hydronephrosis. Right kidney extra renal pelvis is unchanged. Peritoneum and bowel: Large volume of ascites which is substantially increased compared to 08/04/2020. There is peritoneal enhancement and moderate volume of pneumoperitoneum. There are small foci of gas near the right lower quadrant which are non anti-dependent, (6/70). The duodenum is prominent. No sm all bowel obstruction demonstrated. There is increased stool in the colon suggesting constipation. Th e appendix is not seen. Nodes and vessels: No retroperitoneal or mesenteric adenopathy by size criteria. Aorta and inferior vena cava are normal in size. Miscellaneous: Tiny umbilical hernia. Anasarca. PELVIS: Genitourinary: Bladder is mostly decompressed. Miscellaneous: There is a small amount of fluid within the right inguinal canal. There is a left ingu inal hernia containing ascites fluid. Adenopathy. Bones: No suspicious bony lesions. No vertebral body compression fractures. IMPRESSION: 1. Moderate pneumoperitoneum consistent with perforated viscus until proven otherwise, increased. Sma ll foci of nondependent gas in the right lower quadrant which could be a source of leak. 2. Large volume of ascites, increased. Peritoneal enhancement suggesting infected fluid. The fluid do es not appear loculated. 3. Prominent stool in the colon suggesting constipation. No small bowel obstruction. 4. Small bilateral pleural effusions and dependent atelectasis. Anasarca. Results were communicated to Dr. Weiner at 08/09/2021 9:40 AM PST. Reviewed by: Jose Smart MD on 08/09/2021 9:47 AM PST Approved by: Jose Smart MD on 08/09/2021 9:47 AM PST Station ID: [id number]
[2021-08-09] MEDS: VANCOMYCIN INJ 1 GM, VANCOMYCIN INJ 250 MG in SODIUM CHLORIDE 0.9% 250 ML IV SCH ×2 (10:21→21:59)
[2021-08-09] MEDS: ASPIRIN CHEW 81 MG TABLET PO SCH (10:24)
[2021-08-09] MEDS: ENOXAPARIN 40 MG/0.4 ML SYRINGE SUBQ SCH (10:24)
[2021-08-09] MEDS: D5.45NS W/20 MEQ KCL 1,000 ML IV SCH ×3 (14:42→23:58)
[2021-08-09] MEDS: ALBUTEROL NEB 2.5 MG/3 ML INH PRN (15:14)
--- NOTE | 2021-08-09 16:09 | ANESTHESIA ---
Pre-Anesthesia VS, & Labs - Diagnosis acute abdomen - Procedure exploratory laparotomy, colostomy Vital Signs: Temp Pulse Resp BP Pulse Ox 36.1 C L 96 20 166/94 H 93 08/09/21 12:14 08/09/21 15:14 08/09/21 15:14 08/09/21 14:42 08/09/21 12:14 Height: 5 ft 3 in Weight (kg): 92 kg Body Mass Index: 35.9 BMI Classification: Obese - NPO >8 hours - Is Patient ?: No - Lab Results Current Lab Results: Laboratory Tests 08/09/21 12:17: POC Whole Bld Glucose 120 H 08/09/21 09:10: VBG pH 7.424 H, VBG pCO2 29.5 L, VBG pO2 75.4 H, VBG HCO3 18.9 L , VBG Total CO2 19.8 L, VBG O2 Saturation 95.7 H, VBG Base Excess -4.2 L 08/09/21 09:10: Last Dose Date UNK, Last Dose Time UNK, Vancomycin Trough 15.4 08/09/21 08:00: Sodium 139, Potassium 4.2, Chloride 111, Carbon Dioxide 16 L, Anion Gap 12.0, BUN 18, Creatinine 0.7, Estimated GFR (MDRD) 83 L, Glucose 142 H , Calcium 9.3, Phosphorus 2.2 L, Magnesium 1.9, Total Bilirubin 1.0, AST 24, ALT 24, Alkaline Phosphatase 51, Total Protein 5.5 L, Albumin 2.1 L, Globulin 3.4, Albumin/Globulin Ratio 0.6 L, Prealbumin 3 L, Triglycerides 129 08/09/21 06:05: WBC 12.6 H, RBC 4.52, Hgb 13.7, Hct 41.7, MCV 92.3, MCH 30.3, MCHC 32.9, RDW 13.2, Plt Count 389, MPV 8.8, Neut # (Auto) Not Reportable, Lymph # (Auto) Not Reportable, Johnson # (Auto) Not Reportable, Eos # (Auto) Not Reportable, Baso # (Auto) Not Reportable, Absolute Nucleated RBC Not Reportable, Total Counted 100, Band Neuts % (Manual) 33 H, Abnorm Lymph % (Manual) 0, Nucleated RBC % Not Reportable, Neutrophils # (Manual) 9.2 H, Lymphocytes # (Manual) 2.1, Monocytes # (Manual) 1.3 H, Eosinophils # (Manual) 0.0, Basophils # (Manual) 0.0, Differential Comment MANUAL DIFFERENTIAL, Platelet Estimate NORMAL (130-450,000), RBC Morph Micro Appear NORMAL APPEARANCE 08/09/21 06:04: POC Whole Bld Glucose 135 H 08/09/21 00:50: POC Whole Bld Glucose 121 H 08/08/21 20:22: POC Whole Bld Glucose 119 H 08/08/21 18:14: POC Whole Bld Glucose 107 H 08/08/21 14:59: Sodium 138, Potassium 3.6, Chloride 109, Carbon Dioxide 15 L, Anion Gap 14.0 H, BUN 21 H, Creatinine 0.7, Estimated GFR (MDRD) 83 L, Glucose 69 L, Calcium 9.0 08/08/21 14:59: Lactic Acid 1.0 08/08/21 05:01: Sodium 139, Potassium 3.3 L, Chloride 110, Carbon Dioxide 16 L, Anion Gap 13.0, BUN 22 H, Creatinine 0.6, Estimated GFR (MDRD) 100, Glucose 71, Calcium 9.0, Magnesium 1.9 08/08/21 05:01: WBC 11.7 H, RBC 4.24, Hgb 12.9, Hct 38.8, MCV 91.5, MCH 30.4, MCHC 33.2, RDW 13.0, Plt Count 391, MPV 8.7, Neut # (Auto) Not Reportable, Lymph # (Auto) Not Reportable, Johnson # (Auto) Not Reportable, Eos # (Auto) Not Reportable, Baso # (Auto) Not Reportable, Absolute Nucleated RBC Not Reportable, Total Counted 100, Band Neuts % (Manual) 24 H, Abnorm Lymph % (Manual) 0, Metamyelocytes % 1 H, Myelocytes % 1 H, Nucleated RBC % Not Reportable, Neutrophils # (Manual) 9.4 H, Lymphocytes # (Manual) 1.3 L, Monocytes # (Manual) 0.8, Eosinophils # (Manual) 0.0, Basophils # (Manual) 0.0, Differential Comment MANUAL DIFFERENTIAL, Platelet Estimate NORMAL (130-450,000), RBC Morph Micro Appear NORMAL APPEARANCE 08/07/21 05:08: Magnesium 2.1 08/07/21 05:08: Sodium 137, Potassium 3.1 L, Chloride 106, Carbon Dioxide 20 L, Anion Gap 11.0, BUN 23 H, Creatinine 0.6, Estimated GFR (MDRD) 100, Glucose 64 L , Calcium 9.1 08/07/21 05:08: WBC 9.4, RBC 4.41, Hgb 13.4, Hct 39.4, MCV 89.3, MCH 30.4, MCHC 34.0, RDW 12.5, Plt Count 376, MPV 9.2, Neut # (Auto) Not Reportable, Lymph # (Auto) Not Reportable, Johnson # (Auto) Not Reportable, Eos # (Auto) Not Reportable, Baso # (Auto) Not Reportable, Absolute Nucleated RBC Not Reportable, Total Counted 100, Band Neuts % (Manual) 18 H, Abnorm Lymph % (Manual) 0, Nucleated RBC % Not Reportable, Neutrophils # (Manual) 8.6 H, Lymphocytes # (Manual) 0.8 L, Monocytes # (Manual) 0.1, Eosinophils # (Manual) 0.0, Basophils # (Manual) 0.0, Differential Comment MANUAL DIFFERENTIAL, Platelet Estimate NORMAL (130-450,000), RBC Morph Micro Appear NORMAL APPEARANCE 08/06/21 08:23: Lactic Acid 2.2 08/06/21 04:50: TSH 1.65 08/06/21 04:50: Lactic Acid 2.7 H 08/06/21 04:50: Sodium 137, Potassium 3.2 L, Chloride 104, Carbon Dioxide 22, Anion Gap 11.0, BUN 31 H, Creatinine 1.0, Estimated GFR (MDRD) 55 L, Glucose 96, Calcium 9.0, Magnesium 1.6 L 08/06/21 04:50: WBC 7.3, RBC 4.42, Hgb 13.6, Hct 39.7, MCV 89.8, MCH 30.8, MCHC 34.3, RDW 12.1, Plt Count 370, MPV 9.0, Neut # (Auto) Not Reportable, Lymph # (Auto) Not Reportable, Johnson # (Auto) Not Reportable, Eos # (Auto) Not Reportable, Baso # (Auto) Not Reportable, Absolute Nucleated RBC Not Reportable, Total Counted 100, Band Neuts % (Manual) 14 H, Abnorm Lymph % (Manual) 0, Nucleated RBC % Not Reportable, Neutrophils # (Manual) 6.1, Lymphocytes # (Manual) 0.8 L, Monocytes # (Manual) 0.4, Eosinophils # (Manual) 0.0, Basophils # (Manual) 0.0, Differential Comment MANUAL DIFFERENTIAL, WBC Morphology NORMAL APPEARANCE, Platelet Estimate NORMAL (130-450,000), Platelet Morphology NORMAL APPEARANCE, RBC Morph Micro Appear NORMAL APPEARANCE 08/06/21 01:52: Lactic Acid 3.0 H* 08/05/21 23:25: Lactic Acid 3.7 H* 08/05/21 23:25: Troponin I High Sens 4.4 08/05/21 20:50: Lactic Acid 3.7 H* 08/05/21 20:50: Troponin I High Sens 4.9 08/05/21 18:21: Sodium 136, Potassium 3.1 L, Chloride 101, Carbon Dioxide 23, Anion Gap 12.0, BUN 31 H, Creatinine 1.5 H, Estimated GFR (MDRD) 35 L, Glucose 124 H, Calcium 9.0 08/05/21 04:35: Sodium 135, Potassium 2.5 L*, Chloride 98 L, Carbon Dioxide 22, Anion Gap 15.0 H, BUN 21 H, Creatinine 1.1 H, Estimated GFR (MDRD) 50 L, Glucose 185 H, Calcium 9.3 08/05/21 04:35: WBC 12.7 H, RBC 5.23, Hgb 15.7, Hct 47.3 H, MCV 90.4, MCH 30.0, MCHC 33.2, RDW 12.1, Plt Count 464 H, MPV 9.0, Neut # (Auto) Not Reportable, Lymph # (Auto) Not Reportable, Johnson # (Auto) Not Reportable, Eos # (Auto) Not Reportable, Baso # (Auto) Not Reportable, Absolute Nucleated RBC Not Reportable, Total Counted 100, Band Neuts % (Manual) 27 H, Abnorm Lymph % (Manual) 0, Metam yelocytes % 6 H, Myelocytes % 3 H, Nucleated RBC % Not Reportable, Neutrophils # (Manual) 10.7 H, Lymphocytes # (Manual) 0.8 L, Monocytes # (Manual) 0.1, Eosinophils # (Manual) 0.0, Basophils # (Manual) 0.0, Differential Comment MANUAL DIFFERENTIAL, WBC Morphology NORMAL APPEARANCE, Platelet Estimate INCREASED (>450,000), Platelet Morphology NORMAL APPEARANCE, RBC Morph Micro Appear NORMAL APPEARANCE 08/04/21 22:14: POC Whole Bld Glucose 210 H 08/04/21 11:10: Sodium 137, Potassium 3.3 L, Chloride 95 L, Carbon Dioxide 28, Anion Gap 14.0 H, BUN 11, Creatinine 0.7, Estimated GFR (MDRD) 83 L, Glucose 175 H, Calcium 9.9, Total Bilirubin 1.0, AST 24, ALT 29, Alkaline Phosphatase 105, Total Protein 7.1, Albumin 3.5, Globulin 3.6, Albumin/Globulin Ratio 1.0, Lipase 18 L 08/04/21 11:10: WBC 10.2, RBC 4.95, Hgb 15.3, Hct 45.2, MCV 91.3, MCH 30.9, MCHC 33.8, RDW 11.7 L, Plt Count 470 H, MPV 8.5, Neut # (Auto) Not Reportable, Lymph # (Auto) Not Reportable, Johnson # (Auto) Not Reportable, Eos # (Auto) Not Reportable, Baso # (Auto) Not Reportable, Absolute Nucleated RBC Not Reportable, Total Counted 100, Band Neuts % (Manual) 3, Abnorm Lymph % (Manual) 0, Nucleated RBC % Not Reportable, Neutrophils # (Manual) 9.0 H, Lymphocytes # (Manual) 0.8 L , Monocytes # (Manual) 0.4, Eosinophils # (Manual) 0.0, Basophils # (Manual) 0.0, Differential Comment MANUAL DIFFERENTIAL, WBC Morphology 2+ TOXIC GRANULATION, Platelet Estimate NORMAL (130-450,000), RBC Morph Micro Appear NORMAL APPEARANCE Fish Bones: 08/09/21 06:05 08/09/21 08:00 Home Medications and Allergies Home Medications: Ambulatory Orders polyethylene glycoL 3350 [Miralax] 17 gm PO DAILY 08/04/21 Active Medications Acetaminophen (Acetaminophen 325 Mg Tablet) 650 mg PO Q4HR PRN PRN Reason: PAIN Last Admin: 08/06/21 05:17 Dose: 650 mg Albuterol (Albuterol Neb 2.5 Mg/3 Ml) 2.5 mg INH RTQ4H PRN PRN Reason: Wheezing Last Admin: 08/09/21 15:14 Dose: 2.5 mg Aspirin (Aspirin Chew 81 Mg Tablet) 81 mg PO DAILY [facility] Last Admin: 08/09/21 10:24 Dose: 81 mg Bisacodyl (Bisacodyl 10 Mg Supp) 10 mg MD DAILY [facility] Last Admin: 08/09/21 08:28 Dose: 10 mg Enoxaparin Sodium (Enoxaparin 40 Mg/0.4 Ml Syringe) 40 mg SUBQ DAILY [facility] Last Admin: 08/09/21 10:24 Dose: 40 mg Cefepime HCl 2 gm/ Sodium (Chloride) 100 mls @ 200 mls/hr IV BID [facility] Last Infusion: 08/09/21 09:18 Dose: Infused Vancomycin HCl 1 gm/Vancomycin HCl 250 mg/ Sodium Chloride 250 mls @ 167 mls/hr IV Q12H [facility] Last Infusion: 08/09/21 11:51 Dose: Infused Metronidazole (Flagyl 500 Mg/100 Ml) 500 mg in 100 mls @ 100 mls/hr IV Q8H [facility] Last Infusion: 08/09/21 10:19 Dose: Infused Potassium Chloride/Dextrose/Sod Cl (D5.45ns W/20 Meq Kcl) 1,000 mls @ 75 mls/hr IV .[id number] [facility] Last Admin: 08/09/21 14:42 Dose: 75 mls/hr Metoprolol Tartrate (Metoprolol 5 Mg/5 Ml Vial) 5 mg IVP Q6H [facility] Last Admin: 08/09/21 14:42 Dose: 5 mg Mineral Oil (Min Oil/Dimethicon/Coconut Oil 92 Gm Tube) 1 applic TOP PRN PRN PRN Reason: Skin Care Morphine Sulfate (Morphine 2 Mg/Ml Carpuject) 2 mg IVP Q2HR PRN PRN Reason: PAIN Last Admin: 08/09/21 04:26 Dose: 2 mg Pantoprazole Sodium (Pantoprazole 40 Mg Tablet) 40 mg PO QDAC [facility] Last Admin: 08/09/21 08:01 Dose: 40 mg Sodium Chloride (Sodium Chloride Flush 0.9% 10 Ml Syringe) 10 ml IVP 0100,0900,1700 [facility] Last Admin: 08/09/21 04:26 Dose: 10 ml Sodium Chloride (Sodium Chloride Flush 0.9% 10 Ml Syringe) 10 ml IVP PRN PRN PRN Reason: NEEDED PER PROVIDER ORDERS Albuterol Sulf [Ventolin Hfa Inhaler] 2 puffs INH Q4H PRN 06/12/16 Aspirin 81 mg PO DAILY 06/12/16 lisinopriL [Lisinopril] 20 mg PO DAILY 06/12/16 polyethylene glycoL 3350 [Miralax] 17 gm PO DAILY 08/04/21 Allergies/Adverse Reactions: Allergies Allergy/AdvReac Type Severity Reaction Status Date / Time egg Allergy Severe Anaphylaxis Verified 08/04/21 10:57 Anes History & Medical History - Anesthetic History Anesthesia Complications: reports: No previous complications - Medical History Cardiovascular: reports: Hypertension, High cholesterol Pulmonary: reports: Asthma, Pneumonia Gastrointestinal: reports: Hiatal hernia, Colon polyps, Chronic constipation, Other (Had right inguinal hernia for a while, had surg Jun 2021 when it was incarcerated.) Urinary: reports: None, Other (recent UTI) Neuro: reports: None Musculoskeletal: reports: Rheumatoid arthritis, Osteopenia, Fatigue Endocrine/Autoimmune: reports: Other Blood Disorders: reports: Anemia Skin: reports: Eczema Smoking Status: Never smoker History of Cancer?: No Other Past Medical History: rheumatoid arthritis wihout RA factor (mild case per principal librarian) per patient - Surgical History General: reports: Cholecystectomy, Appendectomy, Colonoscopy, Other (Right inguinal hernia) Exam General: Alert, Oriented x3 Dental: Poor dentition (front incisor missing, chipped lower right) Mouth Opening: Greater than 4 Fingerbreadths Neck Mobility: Normal Mallampati classification: II Thyromental Distance: greater than 6 cm Respiratory: Lungs clear Cardiovascular: Regular rate, Normal S1, Normal S2 Plan Anesthesia Type: General, Transverse Abdominis Plane (TAP) Block Consent for Procedure(s) Verified and Reviewed: Yes Code Status: Attempt Resuscitation ASA classification: 3-Severe systemic disease Is this case an emergency?: Yes
--- NOTE | 2021-08-09 16:11 | PROVIDER PROGRESS NOTE ---
Subjective - General Admit Date: 08/04/21 Procedure Date: 07/10/21 Post Op Days: 30 - Review of Systems Wound/Incisions: positive: Healing well All Other Systems: positive: Reviewed and negative - Other Other Information/Narrative: Denies worsening discomfort but leg and body edema and abdominal distension are worse. No nausea or vomiting. Afebrile but WBCs increasing with left shift. Objective - Patient Data Reviewed Vital Signs: Yes Vital Signs: Vital Signs x48h Temp Pulse Pulse Resp BP BP Pulse Ox 08/09/21 15:14 96 20 08/09/21 14:42 166/94 H 08/09/21 12:14 36.1 C L 108 H 20 157/89 H 93 08/09/21 08:28 145/87 H Weight: Weight 08/07/21 08/08/21 08/09/21 23:59 23:59 23:59 Weight (kg) 75 kg 92 kg Intake & Output: Intake and Output Totals x24h 08/07/21 08/08/21 08/09/21 23:59 23:59 23:59 Intake Total 4138.000 3571.667 1800.333 Output Total 425 1000 550 Balance 3713.000 2571.667 1250.333 - Lab Results Lab Results: 08/09/21 06:05 08/09/21 08:00 Other Lab Results: Lab Results x24hrs 08/09/21 08/09/21 08/09/21 Range/Units 12:17 09:10 09:10 WBC (4.8-10.8) x10^3/uL RBC (4.20-5.40) 10^6/uL Hgb (12.0-16.0) g/dL Hct (37.0-47.0) % MCV (81.0-99.0) fL MCH (27.0-31.0) pg MCHC (32.0-36.0) g/dL RDW (12.0-15.0) % Plt Count (130-450) 10^3/uL MPV (7.9-10.8) fL Neut # (Auto) Lymph # (Auto) Dare # (Auto) Eos # (Auto) Baso # (Auto) Absolute Nucleated RBC Total Counted Band Neuts % (Manual) (0 - 10) % Abnorm Lymph % (Manual) % Nucleated RBC % Neutrophils # (Manual) (1.5-6.6) 10^3/uL Lymphocytes # (Manual) (1.5-3.5) 10^3/uL Monocytes # (Manual) (0.0-1.0) 10^3/uL Eosinophils # (Manual) (0-0.7) 10^3/uL Basophils # (Manual) (0-0.1) 10^3/uL Differential Comment Platelet Estimate (NORMAL) RBC Morph Micro Appear (NORMAL) VBG pH 7.424 H (7.31-7.41) VBG pCO2 29.5 L (41-51) mmHg VBG pO2 75.4 H (25-47) mmHg VBG HCO3 18.9 L (23-28) mmol/L VBG Total CO2 19.8 L (24-29) mmol/L VBG O2 Saturation 95.7 H (60-80) % VBG Base Excess -4.2 L (-2 - +2) mmol/L Sodium (135-145) mmol/L Potassium (3.5-5.0) mmol/L Chloride (101-111) mmol/L Carbon Dioxide (21-32) mmol/L Anion Gap (6-13) BUN (6-20) mg/dL Creatinine (0.4-1.0) mg/dL Estimated GFR (MDRD) (>89) Glucose (70-100) mg/dL POC Whole Bld Glucose 120 H (70 - 100) mg/dL Calcium (8.5-10.3) mg/dL Phosphorus (2.5-4.6) mg/dL Magnesium (1.7-2.8) mg/dL Total Bilirubin (0.2-1.0) mg/dL AST (10-42) IU/L ALT (10-60) IU/L Alkaline Phosphatase (42-121) IU/L Total Protein (6.7-8.2) g/dL Albumin (3.2-5.5) g/dL Globulin (2.1-4.2) g/dL Albumin/Globulin Ratio (1.0-2.2) Prealbumin (18-45) mg/dL Triglycerides ( - 149) mg/dL Last Dose Date UNK Last Dose Time UNK Vancomycin Trough 15.4 (10.0-20.0) ug/mL 08/09/21 08/09/21 08/09/21 Range/Units 08:00 06:05 06:04 WBC 12.6 H (4.8-10.8) x10^3/uL RBC 4.52 (4.20-5.40) 10^6/uL Hgb 13.7 (12.0-16.0) g/dL Hct 41.7 (37.0-47.0) % MCV 92.3 (81.0-99.0) fL MCH 30.3 (27.0-31.0) pg MCHC 32.9 (32.0-36.0) g/dL RDW 13.2 (12.0-15.0) % Plt Count 389 (130-450) 10^3/uL MPV 8.8 (7.9-10.8) fL Neut # (Auto) Not Reportable Lymph # (Auto) Not Reportable Dare # (Auto) Not Reportable Eos # (Auto) Not Reportable Baso # (Auto) Not Reportable Absolute Nucleated RBC Not Reportable Total Counted 100 Band Neuts % (Manual) 33 H (0 - 10) % Abnorm Lymph % (Manual) 0 % Nucleated RBC % Not Reportable Neutrophils # (Manual) 9.2 H (1.5-6.6) 10^3/uL Lymphocytes # (Manual) 2.1 (1.5-3.5) 10^3/uL Monocytes # (Manual) 1.3 H (0.0-1.0) 10^3/uL Eosinophils # (Manual) 0.0 (0-0.7) 10^3/uL Basophils # (Manual) 0.0 (0-0.1) 10^3/uL Differential Comment MANUAL DIFFERENTIAL Platelet Estimate NORMAL (130-450,000) (NORMAL) RBC Morph Micro Appear NORMAL APPEARANCE (NORMAL) VBG pH (7.31-7.41) VBG pCO2 (41-51) mmHg VBG pO2 (25-47) mmHg VBG HCO3 (23-28) mmol/L VBG Total CO2 (24-29) mmol/L VBG O2 Saturation (60-80) % VBG Base Excess (-2 - +2) mmol/L Sodium 139 (135-145) mmol/L Potassium 4.2 (3.5-5.0) mmol/L Chloride 111 (101-111) mmol/L Carbon Dioxide 16 L (21-32) mmol/L Anion Gap 12.0 (6-13) BUN 18 (6-20) mg/dL Creatinine 0.7 (0.4-1.0) mg/dL Estimated GFR (MDRD) 83 L (>89) Glucose 142 H (70-100) mg/dL POC Whole Bld Glucose 135 H (70 - 100) mg/dL Calcium 9.3 (8.5-10.3) mg/dL Phosphorus 2.2 L (2.5-4.6) mg/dL Magnesium 1.9 (1.7-2.8) mg/dL Total Bilirubin 1.0 (0.2-1.0) mg/dL AST 24 (10-42) IU/L ALT 24 (10-60) IU/L Alkaline Phosphatase 51 (42-121) IU/L Total Protein 5.5 L (6.7-8.2) g/dL Albumin 2.1 L (3.2-5.5) g/dL Globulin 3.4 (2.1-4.2) g/dL Albumin/Globulin Ratio 0.6 L (1.0-2.2) Prealbumin 3 L (18-45) mg/dL Triglycerides 129 ( - 149) mg/dL Last Dose Date Last Dose Time Vancomycin Trough (10.0-20.0) ug/mL 08/09/21 08/08/21 08/08/21 Range/Units 00:50 20:22 18:14 WBC (4.8-10.8) x10^3/uL RBC (4.20-5.40) 10^6/uL Hgb (12.0-16.0) g/dL Hct (37.0-47.0) % MCV (81.0-99.0) fL MCH (27.0-31.0) pg MCHC (32.0-36.0) g/dL RDW (12.0-15.0) % Plt Count (130-450) 10^3/uL MPV (7.9-10.8) fL Neut # (Auto) Lymph # (Auto) Dare # (Auto) Eos # (Auto) Baso # (Auto) Absolute Nucleated RBC Total Counted Band Neuts % (Manual) (0 - 10) % Abnorm Lymph % (Manual) % Nucleated RBC % Neutrophils # (Manual) (1.5-6.6) 10^3/uL Lymphocytes # (Manual) (1.5-3.5) 10^3/uL Monocytes # (Manual) (0.0-1.0) 10^3/uL Eosinophils # (Manual) (0-0.7) 10^3/uL Basophils # (Manual) (0-0.1) 10^3/uL Differential Comment Platelet Estimate (NORMAL) RBC Morph Micro Appear (NORMAL) VBG pH (7.31-7.41) VBG pCO2 (41-51) mmHg VBG pO2 (25-47) mmHg VBG HCO3 (23-28) mmol/L VBG Total CO2 (24-29) mmol/L VBG O2 Saturation (60-80) % VBG Base Excess (-2 - +2) mmol/L Sodium (135-145) mmol/L Potassium (3.5-5.0) mmol/L Chloride (101-111) mmol/L Carbon Dioxide (21-32) mmol/L Anion Gap (6-13) BUN (6-20) mg/dL Creatinine (0.4-1.0) mg/dL Estimated GFR (MDRD) (>89) Glucose (70-100) mg/dL POC Whole Bld Glucose 121 H 119 H 107 H (70 - 100) mg/dL Calcium (8.5-10.3) mg/dL Phosphorus (2.5-4.6) mg/dL Magnesium (1.7-2.8) mg/dL Total Bilirubin (0.2-1.0) mg/dL AST (10-42) IU/L ALT (10-60) IU/L Alkaline Phosphatase (42-121) IU/L Total Protein (6.7-8.2) g/dL Albumin (3.2-5.5) g/dL Globulin (2.1-4.2) g/dL Albumin/Globulin Ratio (1.0-2.2) Prealbumin (18-45) mg/dL Triglycerides ( - 149) mg/dL Last Dose Date Last Dose Time Vancomycin Trough (10.0-20.0) ug/mL - Imaging Results Radiology Imaging: positive: Final report received Imaging Results Comments: Increased pneumoperitoneum with a significant volume of enhancing ascites - Current Medications Current Medications: Current Medications Generic Name Dose Route Start Last Admin Trade Name Freq PRN Reason Stop Dose Admin Acetaminophen 650 mg 08/04/21 14:01 08/06/21 05:17 Acetaminophen 325 Mg Tablet PO 650 mg Q4HR PRN Administration PAIN Albuterol 2.5 mg 08/04/21 17:26 08/09/21 15:14 Albuterol Neb 2.5 Mg/3 Ml INH 2.5 mg RTQ4H PRN Administration Wheezing Aspirin 81 mg 08/05/21 09:00 08/09/21 10:24 Aspirin Chew 81 Mg Tablet PO 81 mg DAILY INGA Administration Bisacodyl 10 mg 08/05/21 09:00 08/09/21 08:28 Bisacodyl 10 Mg Supp NM 10 mg DAILY INGA Administration Enoxaparin Sodium 40 mg 08/05/21 09:00 08/09/21 10:24 Enoxaparin 40 Mg/0.4 Ml Syringe SUBQ 40 mg DAILY INGA Administration Cefepime HCl 2 gm/ Sodium 100 mls @ 200 mls/hr 08/07/21 09:00 08/09/21 09:18 Chloride IV Infused BID INGA Infusion Vancomycin HCl 1 gm/ 250 mls @ 167 mls/hr 08/07/21 22:00 08/09/21 11:51 Vancomycin HCl 250 mg/ Sodium IV Infused Chloride Q12H INGA Infusion Metronidazole 500 mg in 100 mls @ 100 mls/hr 08/07/21 15:00 08/09/21 10:19 Flagyl 500 Mg/100 Ml IV Infused Q8H INGA Infusion Potassium Chloride/Dextrose/Sod Cl 1,000 mls @ 75 mls/hr 08/08/21 16:00 08/09/21 14:42 D5.45ns W/20 Meq Kcl IV 75 mls/hr .[id number] INGA Administration Metoprolol Tartrate 5 mg 08/07/21 03:00 08/09/21 14:42 Metoprolol 5 Mg/5 Ml Vial IVP 5 mg Q6H INGA Administration Morphine Sulfate 2 mg 08/06/21 10:21 08/09/21 04:26 Morphine 2 Mg/Ml Carpuject IVP 2 mg Q2HR PRN Administration PAIN Pantoprazole Sodium 40 mg 08/05/21 07:00 08/09/21 08:01 Pantoprazole 40 Mg Tablet PO 40 mg QDAC INGA Administration Sodium Chloride 10 ml 08/04/21 17:00 08/09/21 04:26 Sodium Chloride Flush 0.9% 10 Ml Syringe IVP 10 ml 0100,0900,1700 INGA Administration - Physical Exam Comments/Other: Lungs: clear with good air movement Abd: significantly more distended today. Mildly diffusely tender. No bowel sounds appreciated Ext: 3+edema bilaterally ABX Reporting Has patient been on IV antibiotics over the past 48 hours?: Yes Impression/Plan - Problem List Problem List: Na has failed conservative management. She needs an operation today. We attempted to transfer to a higher level of care with colorectal services and pulmonology. In the current COVID crisis, this is not an option. We have discussed the likely need for colostomy which could be reversed at a later time. She is consented for laparotomy with likely colectomy and/or colostomy and indicated procedures. We will proceed to the operating room as soon as the crew is ready.
[2021-08-09] MEDS ORDERED: NALOXONE 0.4 MG/ML VIAL IVP PRN ×2 (16:21→17:58)
[2021-08-09] MEDS ORDERED: ePHEDrine 50 MG/ML VIAL IVP PRN ×2 (16:21→17:58)
[2021-08-09] MEDS ORDERED: METOCLOPRAMIDE 10 MG/2 ML VIAL IVP PRN ×2 (16:21→17:58)
[2021-08-09] MEDS ORDERED: fentaNYL 100 MCG/2 ML VIAL IVP PRN ×2 (16:21→17:58)
[2021-08-09] MEDS ORDERED: MORPHINE 2 MG/ML CARPUJECT IVP PRN ×2 (16:21→17:58)
[2021-08-09] MEDS ORDERED: ATROPINE ABBOJECT 1 MG/10 ML SYRINGE IVP PRN ×2 (16:21→17:58)
[2021-08-09] MEDS ORDERED: ONDANSETRON 4 MG/2 ML VIAL IVP PRN ×2 (16:21→17:58)
[2021-08-09] MEDS ORDERED: ONDANSETRON 4 MG/2 ML VIAL ONE ×2 (16:43→20:34)
[2021-08-09] MEDS ORDERED: LIDOCAINE-MPF 2% 5 ML VIAL ONE (16:43)
[2021-08-09] MEDS ORDERED: ROCURONIUM 50 MG/5 ML VIAL ONE ×2 (16:43→18:27)
[2021-08-09] MEDS ORDERED: DEXAMETHASONE 4 MG/ML VIAL ONE (16:43)
[2021-08-09] MEDS ORDERED: fentaNYL 100 MCG/2 ML VIAL ONE (16:43)
[2021-08-09] MEDS ORDERED: PROPOFOL 200 MG/20 ML VIAL IVP ONE (16:43)
[2021-08-09] MEDS ORDERED: ETOMIDATE 40 MG/20 ML VIAL IVP ONE (16:46)
[2021-08-09] MEDS ORDERED: LACTATED RINGERS 1,000 ML IV SCH ×2 (17:00→18:00)
[2021-08-09] MEDS ORDERED: ePHEDrine 50 MG/ML VIAL IVP ONE ×2 (17:54→19:20)
[2021-08-09] MEDS ORDERED: ROPIVACAINE 0.5% PF 30 ML VIAL ONE (17:56)
[2021-08-09] MEDS ORDERED: SODIUM CHLORIDE 0.9% 10 ML VIAL IVP ONE ×2 (17:57→18:01)
[2021-08-09] MEDS ORDERED: HYDROmorphone 0.5 MG/0.5 ML SYRINGE IVP PRN (17:58)
[2021-08-09] MEDS ORDERED: PHENYLEPHRINE 10 MG/ML VIAL ONE (18:34)
[2021-08-09] MEDS ORDERED: SODIUM CHLORIDE FLUSH 0.9% 10 ML SYRINGE IVP PRN (18:51)
--- NOTE | 2021-08-09 18:57 | OPERATIVE REPORT ---
Operative Report - General Admit Date: 08/04/21 Procedure Date: 08/09/21 Planned Procedure: Exploratory laparotomy with likely colectomy and indicated procedures Pre-Op Diagnosis: Perforated viscus Procedure Performed: Exploratory laparotomy with Sigmoid colectomy, end colostomy, and Kenneth's pouch. Post Op Diagnosis: Sigmoid perforation secondary to severe constipation - Procedure Note Primary Surgeon: Luis Zhao Anesthesia Provider: MARCIA Mi Pathology: Portion of colon to pathology in formalin Contents of left and transverse colons to pathology IV Fluids (mL): 1,300 Estimated Blood Loss (mL): 100 Drain/Tube Type: Mo drain Indications: Perforated viscus not responding to conservative management Findings: 1. Full thickness disruption of the mid sigmoid colon 2. Distension and stercoral perforation secondary to severe constipation 3. Evacuation of innumerable 5-10 cm solid and non pliable stool rocks from the descending, sigmoid and transverse colons. Stool in the right colon was more malleable and broken into smaller segments 5. 1500 mls of frankly purulent ascites fluid Complications: None apparent - Other Other Information/Narrative: After obtaining informed consent, the patient is brought to the operating room and placed in a supine position on the operating table. Following successful induction of general anesthesia, appropriate padding of all bony prominences, and placement of appropriate monitors, the abdomen was prepped and draped in the standard surgical fashion. A timeout was held per scope protocol. All elements of the surgical safety checklist were followed before, during, and after the procedure. We began the procedure by making a lower midline incision starting at the umbilicus and extending almost to the pubic tubercle. The abdomen was entered under direct vision and we immediately encountered a large volume of frankly purulent ascites fluid. This was aspirated from the abdominal cavity and amounted to about 1500 to 2000 cc in total. Further evaluation of the pelvic region revealed free floating stool in the region of the sigmoid colon. Further evaluation and tender and careful dissection revealed the sigmoid colon to be doubled back on itself with stercoral perforation at the pelvic brim.Multiple large and small openings were noted in the sigmoid colon at this region. We were able to mobilize the colon so that we could create a reasonably long Funk's pouch. We elected to remove as much stool as we could From the distal colon before creating the pouch. The more distal stool in the in the rectum that was reachable was manipulated forward and taken out through the holes in the sigmoid colon. This area of the sigmoid colon was then sealed proximally and distally with a ELBA stapling device and the portion with the perforation passed from the table. The Funk's pouch was examined. The pelvis was irrigated copiously with warm saline solution and aspirated free of all fluid and particulate matter. A 2-0 Prolene suture was used to tag the distal stump of the colon.We now turned our attention to the remaining colon. The entire descending, remaining sigmoid, and transverse colon's were packed with nonmalleable 5 to 10 cm stool balls.This created a complete obstruction of the colon. We opened the distal end of the proximal sigmoid and began milking the stool balls out of the colon and into a bucket. This was continued for quite some time, approximately an hour in all.Great care was taken to ensure the sp lenic flexure was intact and without traction and there were no additional holes in the colon. We finally reached a point where the left and transverse colon's were empty and the stool remaining in the right colon was malleable enough that we were able to break it up into smaller portions so that she might be able to pass it.Proximal end of the sigmoid colon was then reclosed with a ELBA stapling device.The left abdomen abdominal wall was retracted medially using Frieda clamps and a site chosen for placement of an ostomy going through the rectus muscle.A plug of skin and soft tissue was removed with the Bovie and the fascia was opened with cautery. The rectus muscle was retracted medially and laterally and a opening created in the peritoneum. The proximal end of the sigmoid was then pulled through this opening to be used as an ostomy.We checked the abdomen for hemostasis, it was irrigated with multiple liters of warm saline solution until it was free of all fluid and particulate matter.A 19 [place] Mo drain was placed in the left upper quadrant and a second in the pelvis.These were brought out through the abdominal wall and sewn into place.The incision was then closed with running looped PDS suture.Skin was left open and packed with damp to dry dressing.The ostomy was matured with 3-0 Vicryl suture and an ostomy appliance applied.All sponge, needle, and instrument counts were correct at the conclusion of the case. The patient was allowed to awaken from anesthesia without significant difficulty and taken to the postanesthesia care unit in guarded condition.Dr. Smith and Ginger were present for the entire case together and performed this procedure as co-surgeon's.
[2021-08-09] MEDS ORDERED: TPN (CLINIMIX E 5/15) 2,000 ML with MULTIVITAMIN 10 ML, TRACE ELEMENTS 1 ML IV SCH ×3 (19:00)
[2021-08-09] MEDS ORDERED: SUGAMMADEX 200 MG/2 ML VIAL IVP ONE (19:19)
[2021-08-09] MEDS ORDERED: LACTATED RINGERS 1,000 ML IV ONE (19:50)
[2021-08-09] MEDS: HYDROmorphone 0.5 MG/0.5 ML SYRINGE IVP PRN ×2 (20:19→23:32)
[2021-08-09] MEDS ORDERED: HYDROmorphone 1 MG/ML CARPUJECT ONE (20:28)
--- NOTE | 2021-08-09 20:42 | ANESTHESIA POST OP EVALUATION ---
Anesthesia Post Eval - Post Anesthesia Eval Vitals: Last Vital Signs Temp 36.4 C L 08/09/21 20:35 Pulse 103 H 08/09/21 20:35 Resp 21 08/09/21 20:35 BP 96/63 08/09/21 20:35 Pulse Ox 94 08/09/21 20:35 CV Function Including HR & BP: Stable Pain Control: Satisfactory Nausea & Vomiting: Negative Mental Status: Baseline Respiratory Status: Airway Patent Hydration Status: Satisfactory Anesthesia Complications: None
--- NOTE | 2021-08-09 20:55 | XRAY Report ---
PROCEDURE: Chest for Line Placement INDICATIONS: line placement TECHNIQUE: One view of the chest was acquired. COMPARISON: 08/07/2021 FINDINGS: Surgical changes and devices: Right internal jugular central venous catheter tip is in SVC.. Lungs and pleura: Mild pulmonary vascular congestion is seen. No significant pleural effusion. No stephani ss pneumothorax. No definite focal infiltrate. Mediastinum: Mediastinal contours appear normal. Heart size is enlarged. Bones and chest wall: No suspicious bony lesions. Overlying soft tissues appear unremarkable. IMPRESSION: Right internal jugular central venous catheter tip is in SVC. Mild congestion. No focal infiltrate or pneumothorax. Reviewed by: Luke Rader MD on 08/09/2021 8:53 PM PST Approved by: Luke Rader MD on 08/09/2021 8:53 PM PST Station ID: [id number]
[2021-08-09] MEDS ORDERED: SODIUM CHLORIDE 0.9% 500 ML IV PRN (22:57)
[2021-08-10] MEDS ORDERED: SODIUM CHLORIDE FLUSH 0.9% 10 ML SYRINGE IVP SCH (01:00)
[2021-08-10] MEDS: HYDROmorphone 0.5 MG/0.5 ML SYRINGE IVP PRN ×5 (01:02→23:10)
[2021-08-10] MEDS: SODIUM CHLORIDE FLUSH 0.9% 10 ML SYRINGE IVP SCH ×3 (01:03→16:48)
[2021-08-10] MEDS: metroNIDAZOLE 500 MG/100 ML 500 MG/100 ML BAG IV SCH ×3 (01:03→17:17)
[2021-08-10] MEDS: METOPROLOL 5 MG/5 ML VIAL IVP SCH ×4 (02:59→21:09)
[2021-08-10] MEDS: PANTOPRAZOLE 40 MG TABLET PO SCH (05:45)
[2021-08-10 05:47] LABS: HCT - HEMATOCRIT 43.5 % (37.0-47.0); HGB - HEMOGLOBIN 13.8 g/dL (12.0-16.0); LYMPHOCYTES % (AUTO) 2.2 %; MEAN CORPUSCULAR HGB CONC 31.7 g/dL (32.0-36.0); MEAN CORPUSCULAR VOLUME 94.6 fL (81.0-99.0); MEAN PLATELET VOLUME 9.5 fL (7.9-10.8); MONOCYTES % (AUTO) 2.1 %; NEUTROPHILS % (AUTO) 89.7 %; PLT - PLATELET COUNT 423 10^3/uL (130-450); RED CELL DISTRIBUTION WIDTH 13.5 % (12.0-15.0); WHITE BLOOD COUNT 33.5 x10^3/uL (4.8-10.8)
[2021-08-10 06:01] LABS: ABNORMAL LYMPHS % (MANUAL) 0 %
[2021-08-10 06:21] LABS: BAND NEUTROPHILS % (MANUAL) 19 %; LYMPHOCYTES # (MANUAL) 1.3 10^3/uL (1.5-3.5); LYMPHOCYTES % (MANUAL) 4 %; METAMYELOCYTES % (MANUAL) 1 %; NEUTROPHILS # (MANUAL) 30.8 10^3/uL (1.5-6.6)
[2021-08-10 06:22] LABS: DIFFERENTIAL COMMENT MANUAL DIFFERENTIAL; PLATELET ESTIMATE, MANUAL NORMAL (130-450,000) (NORMAL); PLATELET MORPHOLOGY NORMAL APPEARANCE (NORMAL); RBC MORPHOLOGY (MULTIPLE) NORMAL APPEARANCE (NORMAL); WBC MORPHOLOGY (MULTIPLE) NORMAL APPEARANCE (NORMAL)
[2021-08-10 06:37] LABS: CREATININE 0.8 mg/dL (0.4-1.0)
[2021-08-10 07:11] LABS: CALCIUM 8.4 mg/dL (8.5-10.3)
--- NOTE | 2021-08-10 07:28 | PROVIDER PROGRESS NOTE ---
Subjective - Prog Note Date Prog Note Date: 08/10/21 - Subjective Subjective: She feels improved compared to yesterday. She is happy that she feels less distended. Denies chest pain or dyspnea. She still feels quite edematous but also feels this is somewhat improved. Current Medications - Current Medications Current Medications: Active Medications Acetaminophen (Acetaminophen 325 Mg Tablet) 650 mg PO Q4HR PRN PRN Reason: PAIN Last Admin: 08/06/21 05:17 Dose: 650 mg Albuterol (Albuterol Neb 2.5 Mg/3 Ml) 2.5 mg INH RTQ4H PRN PRN Reason: Wheezing Last Admin: 08/09/21 15:14 Dose: 2.5 mg Aspirin (Aspirin Chew 81 Mg Tablet) 81 mg PO DAILY [facility] Last Admin: 08/09/21 10:24 Dose: 81 mg Atropine Sulfate (Atropine Abboject 1 Mg/10 Ml Syringe) 0.5 mg IVP Q5M PRN PRN Reason: Bradycardia Stop: 08/10/21 16:21 Bisacodyl (Bisacodyl 10 Mg Supp) 10 mg MI DAILY [facility] Last Admin: 08/09/21 08:28 Dose: 10 mg Enoxaparin Sodium (Enoxaparin 40 Mg/0.4 Ml Syringe) 40 mg SUBQ DAILY [facility] Last Admin: 08/09/21 10:24 Dose: 40 mg Ephedrine Sulfate (Ephedrine 50 Mg/Ml Vial) 10 mg IVP Q5M PRN PRN Reason: HYPOTENSION Stop: 08/10/21 16:21 Fentanyl (Fentanyl 100 Mcg/2 Ml Vial) 25 - 50 mcg IVP Q5M PRN PRN Reason: BREAKTHROUGH PAIN (2nd Choice) Stop: 08/10/21 16:21 Hydromorphone HCl (Hydromorphone 0.5 Mg/0.5 Ml Syringe) 0.2 - 0.6 mg IVP Q5M PRN PRN Reason: PAIN (First Choice) Stop: 08/10/21 16:21 Last Admin: 08/10/21 05:45 Dose: 0.5 mg Cefepime HCl 2 gm/ Sodium (Chloride) 100 mls @ 200 mls/hr IV BID [facility] Last Infusion: 08/09/21 23:13 Dose: Infused Vancomycin HCl 1 gm/Vancomycin HCl 250 mg/ Sodium Chloride 250 mls @ 167 mls/hr IV Q12H [facility] Last Infusion: 08/09/21 23:59 Dose: Infused Metronidazole (Flagyl 500 Mg/100 Ml) 500 mg in 100 mls @ 100 mls/hr IV Q8H [facility] Last Infusion: 08/10/21 02:03 Dose: Infused Multivitamins 10 ml/ TRACE ELEMENTS 1 ml/ Amino Ac/Electrol/Dextrose/Calcium 2,011 mls @ 75 mls/hr IV Q24H [facility]; Protocol Last Infusion: 08/09/21 23:58 Dose: 125 mls/hr Potassium Chloride/Dextrose/Sod Cl (D5.45ns W/20 Meq Kcl) 1,000 mls @ 25 mls/hr IV Q24H [facility] Last Infusion: 08/09/21 23:59 Dose: 0 mls/hr Sodium Chloride (Normal Saline 0.9%) 500 mls @ 999 mls/hr IV PRN PRN PRN Reason: IF UO is LESS than 250ML/8hr Metoclopramide HCl (Metoclopramide 10 Mg/2 Ml Vial) 10 mg IVP Q6HR PRN PRN Reason: N/V not relieved by Zofran Metoprolol Tartrate (Metoprolol 5 Mg/5 Ml Vial) 5 mg IVP Q6H [facility] Last Admin: 08/10/21 02:59 Dose: Not Given Mineral Oil (Min Oil/Dimethicon/Coconut Oil 92 Gm Tube) 1 applic TOP PRN PRN PRN Reason: Skin Care Morphine Sulfate (Morphine 2 Mg/Ml Carpuject) 2 mg IVP Q2HR PRN PRN Reason: PAIN Last Admin: 08/09/21 04:26 Dose: 2 mg Morphine Sulfate (Morphine 2 Mg/Ml Carpuject) 2 - 4 mg IVP Q5M PRN PRN Reason: PAIN (3rd Choice) Stop: 08/10/21 16:21 Naloxone HCl (Naloxone 0.4 Mg/Ml Vial) 0.1 mg IVP Q2M PRN PRN Reason: RESP RATE <8 Stop: 08/10/21 16:21 Ondansetron HCl (Ondansetron 4 Mg/2 Ml Vial) 4 mg IVP ONCE PRN PRN Reason: N/V (First Choice) Stop: 08/10/21 16:21 Pantoprazole Sodium (Pantoprazole 40 Mg Tablet) 40 mg PO QDAC [facility] Last Admin: 08/10/21 05:45 Dose: 40 mg Sodium Chloride (Sodium Chloride Flush 0.9% 10 Ml Syringe) 10 ml IVP 0100,0900,1700 [facility] Last Admin: 08/10/21 01:03 Dose: 10 ml Sodium Chloride (Sodium Chloride Flush 0.9% 10 Ml Syringe) 10 ml IVP PRN PRN PRN Reason: NEEDED PER PROVIDER ORDERS Albuterol Sulf [Ventolin Hfa Inhaler] 2 puffs INH Q4H PRN 06/12/16 Aspirin 81 mg PO DAILY 06/12/16 lisinopriL [Lisinopril] 20 mg PO DAILY 06/12/16 polyethylene glycoL 3350 [Miralax] 17 gm PO DAILY 08/04/21 Objective - Vital Signs/Intake & Output Reviewed Vital Signs: Yes Vital Signs: Vital Signs Pulse Pulse Resp BP Pulse Ox 08/10/21 06:00 95 123 H 20 91/66 95 Intake & Output: Intake & Output 08/07/21 08/08/21 08/09/21 08/10/21 23:59 23:59 23:59 23:59 Intake Total 4138.000 3571.667 2681.583 100 Output Total 425 1000 725 500 Balance 3713.000 2571.667 1956.583 -400 - Objective General Appearance: positive: No acute distress, Alert Eyes Bilateral: positive: Normal inspection, Conjunctivae nml ENT: positive: ENT inspection nml, Other (Nasal cannula in place.) Neck: positive: Nml inspection Respiratory: positive: No respiratory distress, Other (Diminished in bases.). negative: Wheezes, Rales Cardiovascular: positive: Tachycardia. negative: Irregularly irregular, S ystolic murmur Abdomen: positive: Tenderness (Left sided tenderness.), Abnml bowel sounds (Hypoactive.), Other (Dressing in place over the midline. Colostomy in place with minimal output. MC drain present.). negative: Guarding, Rebound Skin: positive: Warm, Dry Extremities: positive: Pedal edema (+2 edema in bilateral lower extremities.) Neurologic/Psychiatric: positive: Motor nml. negative: Disoriented to person, Disoriented to place - Lab Results Fish Bones: 08/10/21 04:15 01/22/22 06:25 Other Labs: Lab Results x24hrs 08/10/21 08/10/21 08/10/21 Range/Units 06:38 06:25 04:15 WBC 33.5 H (4.8-10.8) x10^3/uL RBC 4.60 (4.20-5.40) 10^6/uL Hgb 13.8 (12.0-16.0) g/dL Hct 43.5 (37.0-47.0) % MCV 94.6 (81.0-99.0) fL MCH 30.0 (27.0-31.0) pg MCHC 31.7 L (32.0-36.0) g/dL RDW 13.5 (12.0-15.0) % Plt Count 423 (130-450) 10^3/uL MPV 9.5 (7.9-10.8) fL Neut # (Auto) Not Reportable Lymph # (Auto) Not Reportable [place] # (Auto) Not Reportable Eos # (Auto) Not Reportable Baso # (Auto) Not Reportable Absolute Nucleated RBC Not Reportable Total Counted 100 Band Neuts % (Manual) 19 H (0 - 10) % Abnorm Lymph % (Manual) 0 % Metamyelocytes % 1 H ( - 0) % Nucleated RBC % Not Reportable Neutrophils # (Manual) 30.8 H (1.5-6.6) 10^3/uL Lymphocytes # (Manual) 1.3 L (1.5-3.5) 10^3/uL Monocytes # (Manual) 1.0 (0.0-1.0) 10^3/uL Eosinophils # (Manual) 0.0 (0-0.7) 10^3/uL Basophils # (Manual) 0.0 (0-0.1) 10^3/uL Differential Comment MANUAL DIFFERENTIAL WBC Morphology NORMAL APPEARANCE (NORMAL) Platelet Estimate NORMAL (130-450,000) (NORMAL) Platelet Morphology NORMAL APPEARANCE (NORMAL) RBC Morph Micro Appear NORMAL APPEARANCE (NORMAL) VBG pH (7.31-7.41) VBG pCO2 (41-51) mmHg VBG pO2 (25-47) mmHg VBG HCO3 (23-28) mmol/L VBG Total CO2 (24-29) mmol/L VBG O2 Saturation (60-80) % VBG Base Excess (-2 - +2) mmol/L Sodium 138 (135-145) mmol/L Potassium 4.0 (3.5-5.0) mmol/L Chloride 108 (101-111) mmol/L Carbon Dioxide 23 (21-32) mmol/L Anion Gap 7.0 (6-13) BUN 24 H (6-20) mg/dL Creatinine 0.8 (0.4-1.0) mg/dL Estimated GFR (MDRD) 72 L (>89) Glucose 345 H (70-100) mg/dL POC Whole Bld Glucose 310 H (70 - 100) mg/dL Calcium 8.4 L (8.5-10.3) mg/dL Phosphorus (2.5-4.6) mg/dL Magnesium (1.7-2.8) mg/dL Total Bilirubin (0.2-1.0) mg/dL AST (10-42) IU/L ALT (10-60) IU/L Alkaline Phosphatase (42-121) IU/L Total Protein (6.7-8.2) g/dL Albumin (3.2-5.5) g/dL Globulin (2.1-4.2) g/dL Albumin/Globulin Ratio (1.0-2.2) Prealbumin (18-45) mg/dL Triglycerides ( - 149) mg/dL Last Dose Date Last Dose Time Vancomycin Trough (10.0-20.0) ug/mL 08/10/21 08/09/21 08/09/21 Range/Units 00:19 12:17 09:10 WBC (4.8-10.8) x10^3/uL RBC (4.20-5.40) 10^6/uL Hgb (12.0-16.0) g/dL Hct (37.0-47.0) % MCV (81.0-99.0) fL MCH (27.0-31.0) pg MCHC (32.0-36.0) g/dL RDW (12.0-15.0) % Plt Count (130-450) 10^3/uL MPV (7.9-10.8) fL Neut # (Auto) Lymph # (Auto) [place] # (Auto) Eos # (Auto) Baso # (Auto) Absolute Nucleated RBC Total Counted Band Neuts % (Manual) (0 - 10) % Abnorm Lymph % (Manual) % Metamyelocytes % ( - 0) % Nucleated RBC % Neutrophils # (Manual) (1.5-6.6) 10^3/uL Lymphocytes # (Manual) (1.5-3.5) 10^3/uL Monocytes # (Manual) (0.0-1.0) 10^3/uL Eosinophils # (Manual) (0-0.7) 10^3/uL Basophils # (Manual) (0-0.1) 10^3/uL Differential Comment WBC Morphology (NORMAL) Platelet Estimate (NORMAL) Platelet Morphology (NORMAL) RBC Morph Micro Appear (NORMAL) VBG pH 7.424 H (7.31-7.41) VBG pCO2 29.5 L (41-51) mmHg VBG pO2 75.4 H (25-47) mmHg VBG HCO3 18.9 L (23-28) mmol/L VBG Total CO2 19.8 L (24-29) mmol/L VBG O2 Saturation 95.7 H (60-80) % VBG Base Excess -4.2 L (-2 - +2) mmol/L Sodium (135-145) mmol/L Potassium (3.5-5.0) mmol/L Chloride (101-111) mmol/L Carbon Dioxide (21-32) mmol/L Anion Gap (6-13) BUN (6-20) mg/dL Creatinine (0.4-1.0) mg/dL Estimated GFR (MDRD) (>89) Glucose (70-100) mg/dL POC Whole Bld Glucose 241 H 120 H (70 - 100) mg/dL Calcium (8.5-10.3) mg/dL Phosphorus (2.5-4.6) mg/dL Magnesium (1.7-2.8) mg/dL Total Bilirubin (0.2-1.0) mg/dL AST (10-42) IU/L ALT (10-60) IU/L Alkaline Phosphatase (42-121) IU/L Total Protein (6.7-8.2) g/dL Albumin (3.2-5.5) g/dL Globulin (2.1-4.2) g/dL Albumin/Globulin Ratio (1.0-2.2) Prealbumin (18-45) mg/dL Triglycerides ( - 149) mg/dL Last Dose Date Last Dose Time Vancomycin Trough (10.0-20.0) ug/mL 08/09/21 08/09/21 Range/Units 09:10 08:00 WBC (4.8-10.8) x10^3/uL RBC (4.20-5.40) 10^6/uL Hgb (12.0-16.0) g/dL Hct (37.0-47.0) % MCV (81.0-99.0) fL MCH (27.0-31.0) pg MCHC (32.0-36.0) g/dL RDW (12.0-15.0) % Plt Count (130-450) 10^3/uL MPV (7.9-10.8) fL Neut # (Auto) Lymph # (Auto) [place] # (Auto) Eos # (Auto) Baso # (Auto) Absolute Nucleated RBC Total Counted Band Neuts % (Manual) (0 - 10) % Abnorm Lymph % (Manual) % Metamyelocytes % ( - 0) % Nucleated RBC % Neutrophils # (Manual) (1.5-6.6) 10^3/uL Lymphocytes # (Manual) (1.5-3.5) 10^3/uL Monocytes # (Manual) (0.0-1.0) 10^3/uL Eosinophils # (Manual) (0-0.7) 10^3/uL Basophils # (Manual) (0-0.1) 10^3/uL Differential Comment WBC Morphology (NORMAL) Platelet Estimate (NORMAL) Platelet Morphology (NORMAL) RBC Morph Micro Appear (NORMAL) VBG pH (7.31-7.41) VBG pCO2 (41-51) mmHg VBG pO2 (25-47) mmHg VBG HCO3 (23-28) mmol/L VBG Total CO2 (24-29) mmol/L VBG O2 Saturation (60-80) % VBG Base Excess (-2 - +2) mmol/L Sodium 139 (135-145) mmol/L Potassium 4.2 (3.5-5.0) mmol/L Chloride 111 (101-111) mmol/L Carbon Dioxide 16 L (21-32) mmol/L Anion Gap 12.0 (6-13) BUN 18 (6-20) mg/dL Creatinine 0.7 (0.4-1.0) mg/dL Estimated GFR (MDRD) 83 L (>89) Glucose 142 H (70-100) mg/dL POC Whole Bld Glucose (70 - 100) mg/dL Calcium 9.3 (8.5-10.3) mg/dL Phosphorus 2.2 L (2.5-4.6) mg/dL Magnesium 1.9 (1.7-2.8) mg/dL Total Bilirubin 1.0 (0.2-1.0) mg/dL AST 24 (10-42) IU/L ALT 24 (10-60) IU/L Alkaline Phosphatase 51 (42-121) IU/L Total Protein 5.5 L (6.7-8.2) g/dL Albumin 2.1 L (3.2-5.5) g/dL Globulin 3.4 (2.1-4.2) g/dL Albumin/Globulin Ratio 0.6 L (1.0-2.2) Prealbumin 3 L (18-45) mg/dL Triglycerides 129 ( - 149) mg/dL Last Dose Date UNK Last Dose Time UNK Vancomycin Trough 15.4 (10.0-20.0) ug/mL Sepsis Event Note (H) - Evaluation Current Stage of Sepsis: Severe sepsis Possible source of Sepsis: positive: GI tract/intra-abdominal - Sepsis Criteria Sepsis Criteria: Recorded Heart Rate greater than 90 bpm, WBC count greater than 10% bands, WBC count greater than 12,000 or less than 4000, Metabolic: lactate > 2 mmol/L Assessment/Plan - Problem List (1) Severe sepsis Impression: This is secondary to the perforated abdominal viscus. She went to the OR yesterday for diverting colostomy with Funk's pouch. There was over a liter drained of purulent fluid and takedown of abscess. This is the source of her infection. She remains on vancomycin, cefepime, Flagyl IV. Her white count is increased today to 33,000 with bands but this is also likely reactive given the surgical intervention. She remains afebrile. Her heart rate is still in the 120s and she is now borderline hypotensive but this is likely related to the recent surgical intervention but she is at risk for worsening infection in the interim. We will keep her on broad-spectrum IV antibiotics. We will continue to trend her CBC on daily basis. (2) Perforated abdominal viscus Impression: This was a cause of her sepsis. She was found to have a perforated sigmoid colon and approximate 1.5 L of purulent ascitic fluid. She is now postop day 1 of a sigmoid colectomy with a diverting colostomy and Funk's pouch. We are keeping her on broad-spectrum IV antibiotics with vancomycin, cefepime, Flagyl. We will look to follow-up cultures from the OR although these may have no growth given she was on antibiotics prior to surgical intervention. She will remain n.p.o. and given likely prolonged ileus, she has been started on TPN. (3) Status post colostomy Impression: She is status post sigmoid colectomy with colostomy and Funk's pouch. Today is postop day 1. She has been started on TPN in anticipation of prolonged ileus. She remains on broad-spectrum IV antibiotics. Pain control with morphine IV as needed. We will encourage spirometry use. (4) Atrial fibrillation with RVR Impression: She had a brief episode of atrial fibrillation early on during this hospitalization. Echocardiogram revealed preserved ejection fraction with normal left atrial volume index. She has been on metoprolol and is currently in a sinus rhythm. She has tachycardia with heart rates in the 110s to 120s which is likely due to the sepsis and recent surgical intervention. We will look to continue the metoprolol as long as her blood pressure can tolerate it as her systolics are in the 90s. No anticoagulation for the time being given the recent surgical intervention. We will discuss long-term anticoagulation as she clinically improves. (5) Lower extremity edema Impression: This was secondary to the IV fluid resuscitation she received for the sepsis early on during this admission. She is still quite edematous and will most definitely need diuresis at some point during this hospitalization. Echocardiogram showed preserved ejection fraction and duplex was negative for DVT. We will hold off on diuresis at this time given her borderline blood pressure as well as her recent surgical intervention as we do not want her to become hypovolemic. As she clinically improves, we will look to diurese her with Lasix. I discussed with her that the fluid will mobilize over the next few weeks. (6) Hyperglycemia Impression: Her blood glucose is elevated at greater than 300 this morning. This is likely due to the initiation of TPN. She has no prior history of diabetes but we will check an A1c. Will discuss with pharmacy regarding adjustment of her TPN. We will start insulin if she remains hyperglycemic. (7) Hypokalemia Impression: This is resolved.
[2021-08-10] MEDS: ASPIRIN CHEW 81 MG TABLET PO SCH (08:01)
[2021-08-10] MEDS: ENOXAPARIN 40 MG/0.4 ML SYRINGE SUBQ SCH (08:01)
[2021-08-10] MEDS: CEFEPIME 2 GM in SODIUM CHLORIDE 0.9% MINIBAG 100 ML IV SCH ×2 (08:01→20:40)
[2021-08-10] MEDS: BISACODYL 10 MG SUPP PR SCH (08:05)
[2021-08-10] MEDS: MORPHINE 2 MG/ML CARPUJECT IVP PRN ×3 (08:22→18:14)
[2021-08-10] MEDS: VANCOMYCIN INJ 1 GM, VANCOMYCIN INJ 250 MG in SODIUM CHLORIDE 0.9% 250 ML IV SCH ×2 (10:30→21:29)
[2021-08-10 11:48] LABS: ESTIMATED AVERAGE GLUCOSE 114 mg/dL (70-100); HEMOGLOBIN A1c% 5.6 % (4.27-6.07)
[2021-08-10] MEDS ORDERED: SODIUM CHLORIDE 0.9% 1,000 ML IV ONE (13:03)
--- NOTE | 2021-08-10 13:08 | PROVIDER PROGRESS NOTE ---
Subjective - Prog Note Date Prog Note Date: 08/10/21 - Subjective Pt reports feeling: Improved Subjective: denies nausea Objective - Vital Signs/Intake & Output Reviewed Vital Signs: Yes Vital Signs: Vital Signs x48h Temp Pulse Pulse Resp BP BP Pulse Ox 08/10/21 13:00 110 H 19 101/74 93 08/10/21 10:37 93/76 08/10/21 10:00 122 H 19 88/68 L 94 08/10/21 09:00 36.6 C 122 H 24 93/76 95 08/10/21 07:21 37.0 C 124 H 25 H 102/57 L 95 08/10/21 06:00 95 123 H 20 91/66 95 Intake & Output: Intake & Output 08/07/21 08/08/21 08/09/21 08/10/21 23:59 23:59 23:59 23:59 Intake Total 4138.000 3571.667 2681.583 1764.583 Output Total 425 1000 725 610 Balance 3713.000 2571.667 9967.062 0288.583 - Objective General Appearance: positive: No acute distress, Alert Eyes Bilateral: positive: PERRL, EOMI, No scleral icterus Neck: positive: No JVD Respiratory: positive: No respiratory distress Cardiovascular: positive: Regular rate & rhythm Abdomen: positive: Non-tender, No distention, Other (jps serous to serosanguinous stoma slightly dark; however warm and viable) Neurologic/Psychiatric: positive: Oriented x3 - Lab Results Fish Bones: 08/10/21 04:15 08/10/21 06:25 Other Labs: Lab Results x24hrs 08/10/21 08/10/21 08/10/21 Range/Units 11:43 06:38 06:25 WBC (4.8-10.8) x10^3/uL RBC (4.20-5.40) 10^6/uL Hgb (12.0-16.0) g/dL Hct (37.0-47.0) % MCV (81.0-99.0) fL MCH (27.0-31.0) pg MCHC (32.0-36.0) g/dL RDW (12.0-15.0) % Plt Count (130-450) 10^3/uL MPV (7.9-10.8) fL Neut # (Auto) Lymph # (Auto) [place] # (Auto) Eos # (Auto) Baso # (Auto) Absolute Nucleated RBC Total Counted Band Neuts % (Manual) (0 - 10) % Abnorm Lymph % (Manual) % Metamyelocytes % ( - 0) % Nucleated RBC % Neutrophils # (Manual) (1.5-6.6) 10^3/uL Lymphocytes # (Manual) (1.5-3.5) 10^3/uL Monocytes # (Manual) (0.0-1.0) 10^3/uL Eosinophils # (Manual) (0-0.7) 10^3/uL Basophils # (Manual) (0-0.1) 10^3/uL Differential Comment WBC Morphology (NORMAL) Platelet Estimate (NORMAL) Platelet Morphology (NORMAL) RBC Morph Micro Appear (NORMAL) Sodium 138 (135-145) mmol/L Potassium 4.0 (3.5-5.0) mmol/L Chloride 108 (101-111) mmol/L Carbon Dioxide 23 (21-32) mmol/L Anion Gap 7.0 (6-13) BUN 24 H (6-20) mg/dL Creatinine 0.8 (0.4-1.0) mg/dL Estimated GFR (MDRD) 72 L (>89) Glucose 345 H (70-100) mg/dL POC Whole Bld Glucose 349 H 310 H (70 - 100) mg/dL Estimat Average Glucose (70-100) mg/dL Hemoglobin A1c % (4.27-6.07) % Calcium 8.4 L (8.5-10.3) mg/dL 08/10/21 08/10/21 08/10/21 Range/Units 04:15 04:15 00:19 WBC 33.5 H (4.8-10.8) x10^3/uL RBC 4.60 (4.20-5.40) 10^6/uL Hgb 13.8 (12.0-16.0) g/dL Hct 43.5 (37.0-47.0) % MCV 94.6 (81.0-99.0) fL MCH 30.0 (27.0-31.0) pg MCHC 31.7 L (32.0-36.0) g/dL RDW 13.5 (12.0-15.0) % Plt Count 423 (130-450) 10^3/uL MPV 9.5 (7.9-10.8) fL Neut # (Auto) Not Reportable Lymph # (Auto) Not Reportable [place] # (Auto) Not Reportable Eos # (Auto) Not Reportable Baso # (Auto) Not Reportable Absolute Nucleated RBC Not Reportable Total Counted 100 Band Neuts % (Manual) 19 H (0 - 10) % Abnorm Lymph % (Manual) 0 % Metamyelocytes % 1 H ( - 0) % Nucleated RBC % Not Reportable Neutrophils # (Manual) 30.8 H (1.5-6.6) 10^3/uL Lymphocytes # (Manual) 1.3 L (1.5-3.5) 10^3/uL Monocytes # (Manual) 1.0 (0.0-1.0) 10^3/uL Eosinophils # (Manual) 0.0 (0-0.7) 10^3/uL Basophils # (Manual) 0.0 (0-0.1) 10^3/uL Differential Comment MANUAL DIFFERENTIAL WBC Morphology NORMAL APPEARANCE (NORMAL) Platelet Estimate NORMAL (130-450,000) (NORMAL) Platelet Morphology NORMAL APPEARANCE (NORMAL) RBC Morph Micro Appear NORMAL APPEARANCE (NORMAL) Sodium (135-145) mmol/L Potassium (3.5-5.0) mmol/L Chloride (101-111) mmol/L Carbon Dioxide (21-32) mmol/L Anion Gap (6-13) BUN (6-20) mg/dL Creatinine (0.4-1.0) mg/dL Estimated GFR (MDRD) (>89) Glucose (70-100) mg/dL POC Whole Bld Glucose 241 H (70 - 100) mg/dL Estimat Average Glucose 114 H (70-100) mg/dL Hemoglobin A1c % 5.6 (4.27-6.07) % Calcium (8.5-10.3) mg/dL Sepsis Event Note (H) - Evaluation Current Stage of Sepsis: Severe sepsis Possible source of Sepsis: positive: GI tract/intra-abdominal - Sepsis Criteria Sepsis Criteria: Recorded Heart Rate greater than 90 bpm, WBC count greater than 10% bands, WBC count greater than 12,000 or less than 4000, Metabolic: lactate > 2 mmol/L Assessment/Plan - Problem List (1) Perforated abdominal viscus Impression: improved after surgery ivf bolus dressing change twice daily ice chips ok
[2021-08-10] MEDS: ACETAMINOPHEN 325 MG TABLET PO PRN (14:10)
[2021-08-10] MEDS ORDERED: LACTATED RINGERS 500 ML IV ONE (16:02)
[2021-08-10] MEDS: SODIUM CHLORIDE FLUSH 0.9% 10 ML SYRINGE IVP PRN (18:14)
[2021-08-10] MEDS: PPN (CLINIMIX E 4.25/5) 2,000 ML with MULTIVITAMIN 10 ML, TRACE ELEMENTS 1 ML IV SCH ×3 (18:18)
[2021-08-10] MEDS: INSULIN REGULAR HUMAN 300 UNIT/3 ML VIAL SUBQ SCH (18:24)
[2021-08-10] MEDS: D5.45NS W/20 MEQ KCL 1,000 ML IV SCH (19:55)
[2021-08-11] MEDS: INSULIN REGULAR HUMAN 300 UNIT/3 ML VIAL SUBQ SCH ×4 (00:15→18:56)
[2021-08-11] MEDS: metroNIDAZOLE 500 MG/100 ML 500 MG/100 ML BAG IV SCH ×3 (00:45→16:50)
[2021-08-11] MEDS: SODIUM CHLORIDE FLUSH 0.9% 10 ML SYRINGE IVP SCH ×3 (00:45→16:50)
[2021-08-11] MEDS: HYDROmorphone 0.5 MG/0.5 ML SYRINGE IVP PRN ×9 (02:39→22:46)
[2021-08-11] MEDS: SODIUM CHLORIDE FLUSH 0.9% 10 ML SYRINGE IVP PRN ×4 (02:39→22:47)
[2021-08-11] MEDS: METOPROLOL 5 MG/5 ML VIAL IVP SCH (03:38)
[2021-08-11 05:47] LABS: BASOPHILS % (AUTO) 0.1 %; EOSINOPHILS % (AUTO) 0.2 %; HCT - HEMATOCRIT 34.5 % (37.0-47.0); LYMPHOCYTES % (AUTO) 4.4 %; MEAN CORPUSCULAR HGB CONC 31.9 g/dL (32.0-36.0); MEAN PLATELET VOLUME 9.4 fL (7.9-10.8); MONOCYTES % (AUTO) 4.1 %; NEUTROPHILS % (AUTO) 84.7 %; PLT - PLATELET COUNT 323 10^3/uL (130-450); RED BLOOD COUNT 3.67 10^6/uL (4.20-5.40); RED CELL DISTRIBUTION WIDTH 13.5 % (12.0-15.0); WHITE BLOOD COUNT 30.3 x10^3/uL (4.8-10.8)
[2021-08-11 06:02] LABS: ABNORMAL LYMPHS % (MANUAL) 0 %
[2021-08-11] MEDS: PANTOPRAZOLE 40 MG TABLET PO SCH (06:11)
[2021-08-11 06:33] LABS: BAND NEUTROPHILS % (MANUAL) 7 %; LYMPHOCYTES # (MANUAL) 1.2 10^3/uL (1.5-3.5); LYMPHOCYTES % (MANUAL) 4 %; MONOCYTES # (MANUAL) 1.2 10^3/uL (0.0-1.0); MYELOCYTES % (MANUAL) 2 %; NEUTROPHILS # (MANUAL) 27.3 10^3/uL (1.5-6.6)
[2021-08-11 06:34] LABS: DIFFERENTIAL COMMENT MANUAL DIFFERENTIAL; PLATELET ESTIMATE, MANUAL NORMAL (130-450,000) (NORMAL); PLATELET MORPHOLOGY NORMAL APPEARANCE (NORMAL); RBC MORPHOLOGY (MULTIPLE) NORMAL APPEARANCE (NORMAL); WBC MORPHOLOGY (MULTIPLE) NORMAL APPEARANCE (NORMAL)
[2021-08-11 07:09] LABS: ALBUMIN 2.9 g/dL (3.2-5.5); BILIRUBIN,TOTAL 0.6 mg/dL (0.2-1.0); CREATININE 0.4 mg/dL (0.4-1.0); PHOSPHORUS 3.5 mg/dL (2.5-4.6); POTASSIUM 3.5 mmol/L (3.5-5.0); TOTAL PROTEIN 5.7 g/dL (6.7-8.2)
--- NOTE | 2021-08-11 07:22 | PROVIDER PROGRESS NOTE ---
Subjective - Prog Note Date Prog Note Date: 08/11/21 - Subjective Subjective: She has a little more pain today in her abdomen but feels ok overall. No dyspnea. She is very eager to work with PT. She is motivated to go home when ready. Current Medications - Current Medications Current Medications: Active Medications Acetaminophen (Acetaminophen 325 Mg Tablet) 650 mg PO Q4HR PRN PRN Reason: PAIN Last Admin: 08/10/21 14:10 Dose: 650 mg Albuterol (Albuterol Neb 2.5 Mg/3 Ml) 2.5 mg INH RTQ4H PRN PRN Reason: Wheezing Last Admin: 08/09/21 15:14 Dose: 2.5 mg Aspirin (Aspirin Chew 81 Mg Tablet) 81 mg PO DAILY [facility] Last Admin: 08/10/21 08:01 Dose: 81 mg Bisacodyl (Bisacodyl 10 Mg Supp) 10 mg OK DAILY [facility] Last Admin: 08/10/21 08:05 Dose: Not Given Enoxaparin Sodium (Enoxaparin 40 Mg/0.4 Ml Syringe) 40 mg SUBQ DAILY [facility] Last Admin: 08/10/21 08:01 Dose: 40 mg Hydromorphone HCl (Hydromorphone 0.5 Mg/0.5 Ml Syringe) 0.5 mg IVP Q1H PRN PRN Reason: PAIN Last Admin: 08/11/21 04:45 Dose: 0.5 mg Cefepime HCl 2 gm/ Sodium (Chloride) 100 mls @ 200 mls/hr IV BID [facility] Last Infusion: 08/10/21 21:31 Dose: Infused Metronidazole (Flagyl 500 Mg/100 Ml) 500 mg in 100 mls @ 100 mls/hr IV Q8H [facility] Last Infusion: 08/11/21 02:36 Dose: Infused Potassium Chloride/Dextrose/Sod Cl (D5.45ns W/20 Meq Kcl) 1,000 mls @ 25 mls/hr IV Q24H [facility] Last Admin: 08/10/21 19:55 Dose: Not Given Sodium Chloride (Normal Saline 0.9%) 500 mls @ 999 mls/hr IV PRN PRN PRN Reason: IF UO is LESS than 250ML/8hr Vancomycin HCl 1 gm/Vancomycin HCl 250 mg/ Sodium Chloride 250 mls @ 167 mls/hr IV Q12H [facility] Last Infusion: 08/10/21 23:05 Dose: Infused Multivitamins 10 ml/ TRACE ELEMENTS 1 ml/ Amino Acids/Electrolytes/Dextrose 2,011 mls @ 83 mls/hr IV Q24H [facility]; Protocol Last Admin: 08/10/21 18:18 Dose: 83 mls/hr Insulin Human Regular (Insulin Regular Human 300 Unit/3 Ml Vial) 1 - 9 unit SUBQ Q6HR [facility]; Protocol Last Admin: 08/11/21 05:38 Dose: Not Given Metoclopramide HCl (Metoclopramide 10 Mg/2 Ml Vial) 10 mg IVP Q6HR PRN PRN Reason: N/V not relieved by Zofran Metoprolol Tartrate (Metoprolol 5 Mg/5 Ml Vial) 5 mg IVP Q6H [facility] Last Admin: 08/11/21 03:38 Dose: Not Given Mineral Oil (Min Oil/Dimethicon/Coconut Oil 92 Gm Tube) 1 applic TOP PRN PRN PRN Reason: Skin Care Morphine Sulfate (Morphine 2 Mg/Ml Carpuject) 2 mg IVP Q2HR PRN PRN Reason: PAIN Last Admin: 08/10/21 18:14 Dose: 2 mg Pantoprazole Sodium (Pantoprazole 40 Mg Tablet) 40 mg PO QDAC [facility] Last Admin: 08/11/21 06:11 Dose: 40 mg Sodium Chloride (Sodium Chloride Flush 0.9% 10 Ml Syringe) 10 ml IVP 0100,0900,1700 [facility] Last Admin: 08/11/21 00:45 Dose: Not Given Sodium Chloride (Sodium Chloride Flush 0.9% 10 Ml Syringe) 10 ml IVP PRN PRN PRN Reason: NEEDED PER PROVIDER ORDERS Last Admin: 08/11/21 02:39 Dose: 10 ml Albuterol Sulf [Ventolin Hfa Inhaler] 2 puffs INH Q4H PRN 06/12/16 Aspirin 81 mg PO DAILY 06/12/16 lisinopriL [Lisinopril] 20 mg PO DAILY 06/12/16 polyethylene glycoL 3350 [Miralax] 17 gm PO DAILY 08/04/21 Objective - Vital Signs/Intake & Output Reviewed Vital Signs: Yes Vital Signs: Vital Signs Pulse Pulse Resp BP BP Pulse Ox 08/11/21 07:00 106 H 22 104/72 98 08/11/21 06:00 104 H 14 96/68 95 08/11/21 05:05 100 14 08/11/21 05:01 99 12 08/11/21 05:00 97 101 H 17 117/70 117/70 94 08/11/21 04:59 99 14 08/11/21 04:55 106 H 22 08/11/21 04:50 109 H 22 08/11/21 04:45 107 H 19 08/11/21 04:40 101 H 22 08/11/21 04:35 102 H 22 08/11/21 04:30 101 H 20 08/11/21 04:25 102 H 18 08/11/21 04:20 82 15 08/11/21 04:15 99 15 08/11/21 04:10 99 15 08/11/21 04:05 98 14 08/11/21 04:01 100 14 08/11/21 04:00 99 101 H 14 104/63 104/63 94 08/11/21 03:59 103 H 14 08/11/21 03:55 102 H 14 08/11/21 03:50 101 H 15 08/11/21 03:45 99 15 08/11/21 03:40 101 H 14 08/11/21 03:38 96/64 08/11/21 03:35 99 14 08/11/21 03:30 99 14 08/11/21 03:25 108 H 22 Intake & Output: Intake & Output 08/08/21 08/09/21 08/10/21 08/11/21 23:59 23:59 23:59 23:59 Intake Total 3571.667 2681.583 6186.000 100 Output Total 4244 948 7020 490 Balance 2571.667 4590.108 2083.000 -390 - Objective General Appearance: positive: Alert Eyes Bilateral: positive: Normal inspection, Conjunctivae nml ENT: positive: ENT inspection nml, Other (Nasal cannula in place.) Neck: positive: Nml inspection Respiratory: positive: Other (Diminished in bases.). negative: Rales Cardiovascular: positive: Regular rate & rhythm, Tachycardia. negative: Irregularly irregular, Systolic murmur Abdomen: positive: Tenderness, Abnml bowel sounds (Hypoactive.), Other ([place] stomy in place. MC drain noted with serosanguinous drainage. Dressing in place over midline.). negative: No distention, Guarding, Rebound Skin: positive: Warm, Dry Extremities: positive: Pedal edema (+2 edema in bilateral lower extremities.) Neurologic/Psychiatric: positive: Motor nml. negative: Disoriented to person - Lab Results Fish Bones: 08/12/21 06:25 08/11/21 07:36 Other Labs: Lab Results x24hrs 08/11/21 08/11/21 08/11/21 Range/Units 06:50 05:20 04:55 WBC 30.3 H (4.8-10.8) x10^3/uL RBC 3.67 L (4.20-5.40) 10^6/uL Hgb 11.0 L (12.0-16.0) g/dL Hct 34.5 L (37.0-47.0) % MCV 94.0 (81.0-99.0) fL MCH 30.0 (27.0-31.0) pg MCHC 31.9 L (32.0-36.0) g/dL RDW 13.5 (12.0-15.0) % Plt Count 323 (130-450) 10^3/uL MPV 9.4 (7.9-10.8) fL Neut # (Auto) Not Reportable Lymph # (Auto) Not Reportable Sanders # (Auto) Not Reportable Eos # (Auto) Not Reportable Baso # (Auto) Not Reportable Absolute Nucleated RBC Not Reportable Total Counted 100 Band Neuts % (Manual) 7 (0 - 10) % Abnorm Lymph % (Manual) 0 % Myelocytes % 2 H ( - 0) % Nucleated RBC % Not Reportable Neutrophils # (Manual) 27.3 H (1.5-6.6) 10^3/uL Lymphocytes # (Manual) 1.2 L (1.5-3.5) 10^3/uL Monocytes # (Manual) 1.2 H (0.0-1.0) 10^3/uL Eosinophils # (Manual) 0.0 (0-0.7) 10^3/uL Basophils # (Manual) 0.0 (0-0.1) 10^3/uL Differential Comment MANUAL DIFFERENTIAL WBC Morphology NORMAL APPEARANCE (NORMAL) Platelet Estimate NORMAL (130-450,000) (NORMAL) Platelet Morphology NORMAL APPEARANCE (NORMAL) RBC Morph Micro Appear NORMAL APPEARANCE (NORMAL) Sodium 122 L (135-145) mmol/L Potassium 3.5 (3.5-5.0) mmol/L Chloride 92 L (101-111) mmol/L Carbon Dioxide 23 (21-32) mmol/L Anion Gap 7.0 (6-13) BUN 8 (6-20) mg/dL Creatinine 0.4 (0.4-1.0) mg/dL Estimated GFR (MDRD) 159 (>89) Glucose 104 H (70-100) mg/dL POC Whole Bld Glucose 115 H (70 - 100) mg/dL Estimat Average Glucose (70-100) mg/dL Hemoglobin A1c % (4.27-6.07) % Calcium 8.0 L (8.5-10.3) mg/dL Phosphorus 3.5 (2.5-4.6) mg/dL Magnesium 2.0 (1.7-2.8) mg/dL Total Bilirubin 0.6 (0.2-1.0) mg/dL AST 17 (10-42) IU/L ALT 50 (10-60) IU/L Alkaline Phosphatase 49 (42-121) IU/L Total Protein 5.7 L (6.7-8.2) g/dL Albumin 2.9 L (3.2-5.5) g/dL Globulin 2.8 (2.1-4.2) g/dL Albumin/Globulin Ratio 1.0 (1.0-2.2) Prealbumin 15 L (18-45) mg/dL Triglycerides 38 ( - 149) mg/dL 08/10/21 08/10/21 08/10/21 Range/Units 23:24 18:17 15:48 WBC (4.8-10.8) x10^3/uL RBC (4.20-5.40) 10^6/uL Hgb (12.0-16.0) g/dL Hct (37.0-47.0) % MCV (81.0-99.0) fL MCH (27.0-31.0) pg MCHC (32.0-36.0) g/dL RDW (12.0-15.0) % Plt Count (130-450) 10^3/uL MPV (7.9-10.8) fL Neut # (Auto) Lymph # (Auto) Sanders # (Auto) Eos # (Auto) Baso # (Auto) Absolute Nucleated RBC Total Counted Band Neuts % (Manual) (0 - 10) % Abnorm Lymph % (Manual) % Myelocytes % ( - 0) % Nucleated RBC % Neutrophils # (Manual) (1.5-6.6) 10^3/uL Lymphocytes # (Manual) (1.5-3.5) 10^3/uL Monocytes # (Manual) (0.0-1.0) 10^3/uL Eosinophils # (Manual) (0-0.7) 10^3/uL Basophils # (Manual) (0-0.1) 10^3/uL Differential Comment WBC Morphology (NORMAL) Platelet Estimate (NORMAL) Platelet Morphology (NORMAL) RBC Morph Micro Appear (NORMAL) Sodium (135-145) mmol/L Potassium (3.5-5.0) mmol/L Chloride (101-111) mmol/L Carbon Dioxide (21-32) mmol/L Anion Gap (6-13) BUN (6-20) mg/dL Creatinine (0.4-1.0) mg/dL Estimated GFR (MDRD) (>89) Glucose (70-100) mg/dL POC Whole Bld Glucose 155 H 247 H 275 H (70 - 100) mg/dL Estimat Average Glucose (70-100) mg/dL Hemoglobin A1c % (4.27-6.07) % Calcium (8.5-10.3) mg/dL Phosphorus (2.5-4.6) mg/dL Magnesium (1.7-2.8) mg/dL Total Bilirubin (0.2-1.0) mg/dL AST (10-42) IU/L ALT (10-60) IU/L Alkaline Phosphatase (42-121) IU/L Total Protein (6.7-8.2) g/dL Albumin (3.2-5.5) g/dL Globulin (2.1-4.2) g/dL Albumin/Globulin Ratio (1.0-2.2) Prealbumin (18-45) mg/dL Triglycerides ( - 149) mg/dL 08/10/21 08/10/21 Range/Units 11:43 04:15 WBC (4.8-10.8) x10^3/uL RBC (4.20-5.40) 10^6/uL Hgb (12.0-16.0) g/dL Hct (37.0-47.0) % MCV (81.0-99.0) fL MCH (27.0-31.0) pg MCHC (32.0-36.0) g/dL RDW (12.0-15.0) % Plt Count (130-450) 10^3/uL MPV (7.9-10.8) fL Neut # (Auto) Lymph # (Auto) [place] # (Auto) Eos # (Auto) Baso # (Auto) Absolute Nucleated RBC Total Counted Band Neuts % (Manual) (0 - 10) % Abnorm Lymph % (Manual) % Myelocytes % ( - 0) % Nucleated RBC % Neutrophils # (Manual) (1.5-6.6) 10^3/uL Lymphocytes # (Manual) (1.5-3.5) 10^3/uL Monocytes # (Manual) (0.0-1.0) 10^3/uL Eosinophils # (Manual) (0-0.7) 10^3/uL Basophils # (Manual) (0-0.1) 10^3/uL Differential Comment WBC Morphology (NORMAL) Platelet Estimate (NORMAL) Platelet Morphology (NORMAL) RBC Morph Micro Appear (NORMAL) Sodium (135-145) mmol/L Potassium (3.5-5.0) mmol/L Chloride (101-111) mmol/L Carbon Dioxide (21-32) mmol/L Anion Gap (6-13) BUN (6-20) mg/dL Creatinine (0.4-1.0) mg/dL Estimated GFR (MDRD) (>89) Glucose (70-100) mg/dL POC Whole Bld Glucose 349 H (70 - 100) mg/dL Estimat Average Glucose 114 H (70-100) mg/dL Hemoglobin A1c % 5.6 (4.27-6.07) % Calcium (8.5-10.3) mg/dL Phosphorus (2.5-4.6) mg/dL Magnesium (1.7-2.8) mg/dL Total Bilirubin (0.2-1.0) mg/dL AST (10-42) IU/L ALT (10-60) IU/L Alkaline Phosphatase (42-121) IU/L Total Protein (6.7-8.2) g/dL Albumin (3.2-5.5) g/dL Globulin (2.1-4.2) g/dL Albumin/Globulin Ratio (1.0-2.2) Prealbumin (18-45) mg/dL Triglycerides ( - 149) mg/dL Sepsis Event Note (H) - Evaluation Current Stage of Sepsis: Severe sepsis Possible source of Sepsis: positive: GI tract/intra-abdominal - Sepsis Criteria Sepsis Criteria: Recorded Heart Rate greater than 90 bpm, WBC count greater than 10% bands, WBC count greater than 12,000 or less than 4000, Metabolic: lactate > 2 mmol/L Assessment/Plan - Problem List (1) Severe sepsis Impression: She remains afebrile and although her white count is still quite elevated, it is improved compared to yesterday. The big increase in her white count yesterday was likely due to the recent surgical intervention. Her bands have now nearly resolved. We will keep her on vancomycin, cefepime, Flagyl IV. We will look to de-escalate to just cefepime and Flagyl IV as she improves. (2) Perforated abdominal viscus Impression: This was the cause of her sepsis. She had a perforated sigmoid colon with purulent ascitic fluid. Over 1.5 L was drained while she was in the OR. She remains on IV antibiotics with vancomycin, cefepime, Flagyl. Cultures so far have no growth and likely will not have any growth from the OR cultures given she was on antibiotics prior to surgery. As she improves, we will look to like ly discontinue the vancomycin and continue cefepime and Flagyl for gram-negative and anaerobic coverage. (3) Status post colostomy Impression: She is now postop day two of colectomy with diverting colostomy and Funk's pouch. She remains n.p.o. and is on PPN. She also remains on broad-spectrum IV antibiotics. Continue pain control with morphine as needed. Management as per general surgery. (4) Atrial fibrillation with RVR Impression: She had a brief episode of atrial fibrillation early on during his hospitaliza tion but has since been in a sinus rhythm. Her heart rate is improved today. We will discontinue metoprolol given her blood pressures are on the soft side and her rate is acceptable in the high 90s to low 100s. As she clinically improves, we will likely start her on oral metoprolol given the history of paroxysmal atrial fibrillation. No anticoagulation at this time given recent surgical intervention. TSH within normal limits and echocardiogram showed a a normal left atrial volume index. Continue to monitor on telemetry. (5) Lower extremity edema Impression: This is ongoing and secondary to the IV fluids she received initially for the sepsis. She is still quite edematous but her echocardiogram showed no evidence of heart failure and duplex was negative for DVT. She will need diuresis at some point but will hold off at this time given her soft blood pressures and recent surgical intervention. I also discussed with her that she will mobilize this fluid over the next few weeks. Continue with leg elevation. (6) Hyperglycemia Impression: This is now resolved. This was secondary to the dextrose and her PPN. We have adjusted the amount of dextrose and her blood glucose is now in the acceptable range. Continue with sliding scale. Her A1c was within normal limits. (7) Hypokalemia Impression: This is resolved.
[2021-08-11 07:54] LABS: CALCIUM 8.3 mg/dL (8.5-10.3); CREATININE 0.6 mg/dL (0.4-1.0); POTASSIUM 3.7 mmol/L (3.5-5.0)
[2021-08-11] MEDS: BISACODYL 10 MG SUPP PR SCH (08:57)
[2021-08-11] MEDS: ASPIRIN CHEW 81 MG TABLET PO SCH (09:17)
[2021-08-11] MEDS: ENOXAPARIN 40 MG/0.4 ML SYRINGE SUBQ SCH (09:18)
[2021-08-11] MEDS: CEFEPIME 2 GM in SODIUM CHLORIDE 0.9% MINIBAG 100 ML IV SCH ×2 (09:19→20:57)
[2021-08-11] MEDS: VANCOMYCIN INJ 1 GM, VANCOMYCIN INJ 250 MG in SODIUM CHLORIDE 0.9% 250 ML IV SCH ×2 (11:17→21:57)
--- NOTE | 2021-08-11 13:00 | PROVIDER PROGRESS NOTE ---
Subjective - Prog Note Date Prog Note Date: 08/11/21 - Subjective Pt reports feeling: Improved (no nausea. not as thirsty today) Objective - Vital Signs/Intake & Output Reviewed Vital Signs: Yes Vital Signs: Vital Signs x48h Temp Pulse Pulse Resp BP BP Pulse Ox 08/11/21 12:00 112 H 19 123/71 99 08/11/21 11:50 106 H 20 08/11/21 11:45 108 H 22 08/11/21 11:40 102 H 20 08/11/21 11:35 106 H 22 08/11/21 11:30 108 H 23 08/11/21 11:25 111 H 23 08/11/21 11:20 108 H 28 H 08/11/21 11:15 111 H 20 08/11/21 11:10 105 H 18 08/11/21 11:05 104 H 18 08/11/21 11:01 113 H 24 08/11/21 11:00 37.2 C 89 108 H 23 123/82 H 123/82 H 98 08/11/21 10:59 113 H 26 H 08/11/21 10:55 104 H 18 08/11/21 10:50 105 H 23 08/11/21 10:45 107 H 20 08/11/21 10:40 109 H 24 08/11/21 10:35 109 H 24 08/11/21 10:30 106 H 17 08/11/21 10:25 108 H 17 08/11/21 10:20 107 H 17 08/11/21 10:15 109 H 21 08/11/21 10:10 107 H 16 08/11/21 10:05 110 H 24 08/11/21 10:01 110 H 22 08/11/21 10:00 37.4 C 109 H 108 H 23 125/75 125/75 100 08/11/21 09:59 106 H 23 08/11/21 09:55 102 H 18 08/11/21 09:50 110 H 22 08/11/21 09:45 109 H 29 H 08/11/21 09:40 107 H 24 08/11/21 09:35 107 H 26 H 08/11/21 09:30 110 H 23 08/11/21 09:25 110 H 22 08/11/21 09:20 109 H 25 H 08/11/21 09:15 110 H 19 08/11/21 09:10 100 19 08/11/21 09:05 102 H 18 08/11/21 09:01 103 H 22 08/11/21 09:00 100 102 H 19 122/71 122/71 95 08/11/21 08:59 102 H 21 08/11/21 08:55 107 H 21 08/11/21 08:50 101 H 21 08/11/21 08:45 106 H 27 H 08/11/21 08:40 107 H 22 08/11/21 08:35 106 H 20 08/11/21 08:30 101 H 20 08/11/21 08:25 104 H 23 08/11/21 08:20 102 H 19 08/11/21 08:15 105 H 26 H 08/11/21 08:00 105 H 25 H 118/64 96 08/11/21 07:00 106 H 22 104/72 98 08/11/21 06:00 104 H 14 96/68 95 08/11/21 05:05 100 14 08/11/21 05:01 99 12 08/11/21 05:00 97 101 H 17 117/70 117/70 94 08/11/21 04:59 99 14 Intake & Output: Intake & Output 08/08/21 08/09/21 08/10/21 08/11/21 23:59 23:59 23:59 23:59 Intake Total 3571.667 2681.583 6186.000 300 Output Total 3939 168 5273 787 Balance 2571.667 5791.668 4755.000 -487 - Objective General Appearance: positive: No acute distress, Alert Eyes Bilateral: positive: PERRL, EOMI, No scleral icterus ENT: positive: No signs of dehydration Neck: positive: No JVD Respiratory: positive: No respiratory distress Abdomen: positive: Non-tender, No distention, Other (open clean wound. stoma warm, viable, mild edema jps thin serous) Neurologic/Psychiatric: positive: Oriented x3 - Lab Results Fish Bones: 08/11/21 04:55 08/11/21 07:36 Other Labs: Lab Results x24hrs 08/11/21 08/11/21 08/11/21 Range/Units 11:03 07:36 06:50 WBC (4.8-10.8) x10^3/uL RBC (4.20-5.40) 10^6/uL Hgb (12.0-16.0) g/dL Hct (37.0-47.0) % MCV (81.0-99.0) fL MCH (27.0-31.0) pg MCHC (32.0-36.0) g/dL RDW (12.0-15.0) % Plt Count (130-450) 10^3/uL MPV (7.9-10.8) fL Neut # (Auto) Lymph # (Auto) [place] # (Auto) Eos # (Auto) Baso # (Auto) Absolute Nucleated RBC Total Counted Band Neuts % (Manual) (0 - 10) % Abnorm Lymph % (Manual) % Myelocytes % ( - 0) % Nucleated RBC % Neutrophils # (Manual) (1.5-6.6) 10^3/uL Lymphocytes # (Manual) (1.5-3.5) 10^3/uL Monocytes # (Manual) (0.0-1.0) 10^3/uL Eosinophils # (Manual) (0-0.7) 10^3/uL Basophils # (Manual) (0-0.1) 10^3/uL Differential Comment WBC Morphology (NORMAL) Platelet Estimate (NORMAL) Platelet Morphology (NORMAL) RBC Morph Micro Appear (NORMAL) Sodium 139 122 L (135-145) mmol/L Potassium 3.7 3.5 (3.5-5.0) mmol/L Chloride 108 92 L (101-111) mmol/L Carbon Dioxide 24 23 (21-32) mmol/L Anion Gap 7.0 7.0 (6-13) BUN 25 H 8 (6-20) mg/dL Creatinine 0.6 0.4 (0.4-1.0) mg/dL Estimated GFR (MDRD) 100 159 (>89) Glucose 122 H 104 H (70-100) mg/dL POC Whole Bld Glucose 112 H (70 - 100) mg/dL Calcium 8.3 L 8.0 L (8.5-10.3) mg/dL Phosphorus 3.5 (2.5-4.6) mg/dL Magnesium 2.0 (1.7-2.8) mg/dL Total Bilirubin 0.6 (0.2-1.0) mg/dL AST 17 (10-42) IU/L ALT 50 (10-60) IU/L Alkaline Phosphatase 49 (42-121) IU/L Total Protein 5.7 L (6.7-8.2) g/dL Albumin 2.9 L (3.2-5.5) g/dL Globulin 2.8 (2.1-4.2) g/dL Albumin/Globulin Ratio 1.0 (1.0-2.2) Prealbumin 15 L (18-45) mg/dL Triglycerides 38 ( - 149) mg/dL 08/11/21 08/11/21 08/10/21 Range/Units 05:20 04:55 23:24 WBC 30.3 H (4.8-10.8) x10^3/uL RBC 3.67 L (4.20-5.40) 10^6/uL Hgb 11.0 L (12.0-16.0) g/dL Hct 34.5 L (37.0-47.0) % MCV 94.0 (81.0-99.0) fL MCH 30.0 (27.0-31.0) pg MCHC 31.9 L (32.0-36.0) g/dL RDW 13.5 (12.0-15.0) % Plt Count 323 (130-450) 10^3/uL MPV 9.4 (7.9-10.8) fL Neut # (Auto) Not Reportable Lymph # (Auto) Not Reportable [place] # (Auto) Not Reportable Eos # (Auto) Not Reportable Baso # (Auto) Not Reportable Absolute Nucleated RBC Not Reportable Total Counted 100 Band Neuts % (Manual) 7 (0 - 10) % Abnorm Lymph % (Manual) 0 % Myelocytes % 2 H ( - 0) % Nucleated RBC % Not Reportable Neutrophils # (Manual) 27.3 H (1.5-6.6) 10^3/uL Lymphocytes # (Manual) 1.2 L (1.5-3.5) 10^3/uL Monocytes # (Manual) 1.2 H (0.0-1.0) 10^3/uL Eosinophils # (Manual) 0.0 (0-0.7) 10^3/uL Basophils # (Manual) 0.0 (0-0.1) 10^3/uL Differential Comment MANUAL DIFFERENTIAL WBC Morphology NORMAL APPEARANCE (NORMAL) Platelet Estimate NORMAL (130-450,000) (NORMAL) Platelet Morphology NORMAL APPEARANCE (NORMAL) RBC Morph Micro Appear NORMAL APPEARANCE (NORMAL) Sodium (135-145) mmol/L Potassium (3.5-5.0) mmol/L Chloride (101-111) mmol/L Carbon Dioxide (21-32) mmol/L Anion Gap (6-13) BUN (6-20) mg/dL Creatinine (0.4-1.0) mg/dL Estimated GFR (MDRD) (>89) Glucose (70-100) mg/dL POC Whole Bld Glucose 115 H 155 H (70 - 100) mg/dL Calcium (8.5-10.3) mg/dL Phosphorus (2.5-4.6) mg/dL Magnesium (1.7-2.8) mg/dL Total Bilirubin (0.2-1.0) mg/dL AST (10-42) IU/L ALT (10-60) IU/L Alkaline Phosphatase (42-121) IU/L Total Protein (6.7-8.2) g/dL Albumin (3.2-5.5) g/dL Globulin (2.1-4.2) g/dL Albumin/Globulin Ratio (1.0-2.2) Prealbumin (18-45) mg/dL Triglycerides ( - 149) mg/dL 08/10/21 08/10/21 Range/Units 18:17 15:48 WBC (4.8-10.8) x10^3/uL RBC (4.20-5.40) 10^6/uL Hgb (12.0-16.0) g/dL Hct (37.0-47.0) % MCV (81.0-99.0) fL MCH (27.0-31.0) pg MCHC (32.0-36.0) g/dL RDW (12.0-15.0) % Plt Count (130-450) 10^3/uL MPV (7.9-10.8) fL Neut # (Auto) Lymph # (Auto) [place] # (Auto) Eos # (Auto) Baso # (Auto) Absolute Nucleated RBC Total Counted Band Neuts % (Manual) (0 - 10) % Abnorm Lymph % (Manual) % Myelocytes % ( - 0) % Nucleated RBC % Neutrophils # (Manual) (1.5-6.6) 10^3/uL Lymphocytes # (Manual) (1.5-3.5) 10^3/uL Monocytes # (Manual) (0.0-1.0) 10^3/uL Eosinophils # (Manual) (0-0.7) 10^3/uL Basophils # (Manual) (0-0.1) 10^3/uL Differential Comment WBC Morphology (NORMAL) Platelet Estimate (NORMAL) Platelet Morphology (NORMAL) RBC Morph Micro Appear (NORMAL) Sodium (135-145) mmol/L Potassium (3.5-5.0) mmol/L Chloride (101-111) mmol/L Carbon Dioxide (21-32) mmol/L Anion Gap (6-13) BUN (6-20) mg/dL Creatinine (0.4-1.0) mg/dL Estimated GFR (MDRD) (>89) Glucose (70-100) mg/dL POC Whole Bld Glucose 247 H 275 H (70 - 100) mg/dL Calcium (8.5-10.3) mg/dL Phosphorus (2.5-4.6) mg/dL Magnesium (1.7-2.8) mg/dL Total Bilirubin (0.2-1.0) mg/dL AST (10-42) IU/L ALT (10-60) IU/L Alkaline Phosphatase (42-121) IU/L Total Protein (6.7-8.2) g/dL Albumin (3.2-5.5) g/dL Globulin (2.1-4.2) g/dL Albumin/Globulin Ratio (1.0-2.2) Prealbumin (18-45) mg/dL Triglycerides ( - 149) mg/dL Sepsis Event Note (H) - Evaluation Current Stage of Sepsis: Severe sepsis Possible source of Sepsis: positive: GI tract/intra-abdominal - Sepsis Criteria Sepsis Criteria: Recorded Heart Rate greater than 90 bpm, WBC count greater than 10% bands, WBC count greater than 12,000 or less than 4000, Metabolic: lactate > 2 mmol/L Assessment/Plan - Problem List (1) Perforated abdominal viscus Impression: doing well ileus. continue npo except ice chips/ sips
[2021-08-11] MEDS: PPN (CLINIMIX E 4.25/5) 2,000 ML with MULTIVITAMIN 10 ML, TRACE ELEMENTS 1 ML IV SCH ×3 (16:43)
[2021-08-12] MEDS: INSULIN REGULAR HUMAN 300 UNIT/3 ML VIAL SUBQ SCH ×5 (00:18→23:43)
[2021-08-12] MEDS: metroNIDAZOLE 500 MG/100 ML 500 MG/100 ML BAG IV SCH ×3 (00:28→17:11)
[2021-08-12] MEDS: SODIUM CHLORIDE FLUSH 0.9% 10 ML SYRINGE IVP SCH ×4 (00:28→17:12)
[2021-08-12] MEDS: HYDROmorphone 0.5 MG/0.5 ML SYRINGE IVP PRN ×7 (01:38→23:45)
[2021-08-12] MEDS: ACETAMINOPHEN 325 MG TABLET PO PRN ×3 (04:21→23:39)
[2021-08-12] MEDS: PANTOPRAZOLE 40 MG TABLET PO SCH (06:01)
[2021-08-12 06:37] LABS: BASOPHILS % (AUTO) 0.5 %; EOSINOPHILS % (AUTO) 0.7 %; HCT - HEMATOCRIT 33.6 % (37.0-47.0); HGB - HEMOGLOBIN 11.1 g/dL (12.0-16.0); LYMPHOCYTES % (AUTO) 3.6 %; MEAN CORPUSCULAR HEMOGLOBIN 31.2 pg (27.0-31.0); MEAN CORPUSCULAR VOLUME 94.4 fL (81.0-99.0); MEAN PLATELET VOLUME 9.2 fL (7.9-10.8); MONOCYTES % (AUTO) 3.9 %; NEUTROPHILS % (AUTO) 84.8 %; PLT - PLATELET COUNT 345 10^3/uL (130-450); RED BLOOD COUNT 3.56 10^6/uL (4.20-5.40); RED CELL DISTRIBUTION WIDTH 13.4 % (12.0-15.0); WHITE BLOOD COUNT 25.4 x10^3/uL (4.8-10.8)
[2021-08-12 06:44] LABS: ABNORMAL LYMPHS % (MANUAL) 0 %
[2021-08-12 07:17] LABS: BAND NEUTROPHILS % (MANUAL) 13 %; LYMPHOCYTES # (MANUAL) 0.5 10^3/uL (1.5-3.5); LYMPHOCYTES % (MANUAL) 2 %; METAMYELOCYTES % (MANUAL) 1 %; MONOCYTES # (MANUAL) 0.8 10^3/uL (0.0-1.0); MYELOCYTES % (MANUAL) 1 %; NEUTROPHILS # (MANUAL) 23.6 10^3/uL (1.5-6.6)
[2021-08-12 07:18] LABS: RBC MORPHOLOGY (MULTIPLE) 1+ ANISOCYTOSIS (NORMAL)
[2021-08-12 07:19] LABS: DIFFERENTIAL COMMENT MANUAL DIFFERENTIAL
--- NOTE | 2021-08-12 07:30 | PROVIDER PROGRESS NOTE ---
Subjective - Prog Note Date Prog Note Date: 08/12/21 - Subjective Subjective: She feels a little better each day. She is requesting ice chips. States her pain is controlled with Dilaudid. Denies any dyspnea. She feels her hand edema is better but her leg edema has not improved much. Current Medications - Current Medications Current Medications: Active Medications Acetaminophen (Acetaminophen 325 Mg Tablet) 650 mg PO Q4HR PRN PRN Reason: PAIN Last Admin: 08/12/21 08:34 Dose: 650 mg Albuterol (Albuterol Neb 2.5 Mg/3 Ml) 2.5 mg INH RTQ4H PRN PRN Reason: Wheezing Last Admin: 08/09/21 15:14 Dose: 2.5 mg Aspirin (Aspirin Chew 81 Mg Tablet) 81 mg PO DAILY [facility] Last Admin: 08/12/21 08:33 Dose: 81 mg Bisacodyl (Bisacodyl 10 Mg Supp) 10 mg ND DAILY [facility] Last Admin: 08/12/21 08:33 Dose: Not Given Enoxaparin Sodium (Enoxaparin 40 Mg/0.4 Ml Syringe) 40 mg SUBQ DAILY [facility] Last Admin: 08/12/21 08:33 Dose: 40 mg Hydromorphone HCl (Hydromorphone 0.5 Mg/0.5 Ml Syringe) 0.5 mg IVP Q1H PRN PRN Reason: PAIN Last Admin: 08/12/21 06:21 Dose: 0.5 mg Cefepime HCl 2 gm/ Sodium (Chloride) 100 mls @ 200 mls/hr IV BID [facility] Last Admin: 08/12/21 08:32 Dose: 200 mls/hr Metronidazole (Flagyl 500 Mg/100 Ml) 500 mg in 100 mls @ 100 mls/hr IV Q8H [facility] Last Infusion: 08/12/21 01:30 Dose: Infused Multivitamins 10 ml/ TRACE ELEMENTS 1 ml/ Amino Acids/Electrolytes/Dextrose 2,011 mls @ 83 mls/hr IV Q24H [facility]; Protocol Last Admin: 08/11/21 16:43 Dose: 83 mls/hr Insulin Human Regular (Insulin Regular Human 300 Unit/3 Ml Vial) 1 - 9 unit SUBQ Q6HR [facility]; Protocol Last Admin: 08/12/21 06:12 Dose: Not Given Metoclopramide HCl (Metoclopramide 10 Mg/2 Ml Vial) 10 mg IVP Q6HR PRN PRN Reason: N/V not relieved by Zofran Mineral Oil (Min Oil/Dimethicon/Coconut Oil 92 Gm Tube) 1 applic TOP PRN PRN PRN Reason: Skin Care Morphine Sulfate (Morphine 2 Mg/Ml Carpuject) 2 mg IVP Q2HR PRN PRN Reason: PAIN Last Admin: 08/10/21 18:14 Dose: 2 mg Pantoprazole Sodium (Pantoprazole 40 Mg Tablet) 40 mg PO QDAC [facility] Last Admin: 08/12/21 06:01 Dose: 40 mg Sodium Chloride (Sodium Chloride Flush 0.9% 10 Ml Syringe) 10 ml IVP 0100,0900,1700 [facility] Last Admin: 08/12/21 08:33 Dose: 10 ml Sodium Chloride (Sodium Chloride Flush 0.9% 10 Ml Syringe) 10 ml IVP PRN PRN PRN Reason: NEEDED PER PROVIDER ORDERS Last Admin: 08/11/21 22:47 Dose: 30 ml Albuterol Sulf [Ventolin Hfa Inhaler] 2 puffs INH Q4H PRN 06/12/16 Aspirin 81 mg PO DAILY 06/12/16 lisinopriL [Lisinopril] 20 mg PO DAILY 06/12/16 polyethylene glycoL 3350 [Miralax] 17 gm PO DAILY 08/04/21 Objective - Vital Signs/Intake & Output Reviewed Vital Signs: Yes Vital Signs: Vital Signs x48h Pulse Resp BP Pulse Ox 08/12/21 05:00 93 18 137/78 H 97 08/12/21 01:00 97 18 145/85 H 96 Intake & Output: Intake & Output 08/09/21 08/10/21 08/11/21 08/12/21 23:59 23:59 23:59 23:59 Intake Total 2681.583 6186.000 3804.333 100 Output Total 725 1458 1407 390 Balance 0028.685 1784.000 2397.333 -290 - Objective General Appearance: positive: Alert Eyes Bilateral: positive: Normal inspection, Conjunctivae nml ENT: positive: ENT inspection nml Neck: positive: Nml inspection Respiratory: positive: No respiratory distress, Other (Diminished in bases.). negative: Wheezes, Rales Cardiovascular: positive: Regular rate & rhythm. negative: Tachycardia Abdomen: positive: Tenderness (Diffuse tenderness.), Other (Dressing in place. MC drain with serosanguinous output. Colostomy in place.). negative: Guarding, Rebound Extremities: positive: Pedal edema (+2 edema.) Neurologic/Psychiatric: negative: Disoriented to person, Disoriented to place - Lab Results Fish Bones: 08/12/21 06:25 08/12/21 08:00 Other Labs: Lab Results x24hrs 08/12/21 08/12/21 08/12/21 Range/Units 06:25 06:11 00:15 WBC 25.4 H (4.8-10.8) x10^3/uL RBC 3.56 L (4.20-5.40) 10^6/uL Hgb 11.1 L (12.0-16.0) g/dL Hct 33.6 L (37.0-47.0) % MCV 94.4 (81.0-99.0) fL MCH 31.2 H (27.0-31.0) pg MCHC 33.0 (32.0-36.0) g/dL RDW 13.4 (12.0-15.0) % Plt Count 345 (130-450) 10^3/uL MPV 9.2 (7.9-10.8) fL Neut # (Auto) Not Reportable Lymph # (Auto) Not Reportable [place] # (Auto) Not Reportable Eos # (Auto) Not Reportable Baso # (Auto) Not Reportable Absolute Nucleated RBC Not Reportable Total Counted 100 Band Neuts % (Manual) 13 H (0 - 10) % Abnorm Lymph % (Manual) 0 % Metamyelocytes % 1 H ( - 0) % Myelocytes % 1 H ( - 0) % Nucleated RBC % Not Reportable Neutrophils # (Manual) 23.6 H (1.5-6.6) 10^3/uL Lymphocytes # (Manual) 0.5 L (1.5-3.5) 10^3/uL Monocytes # (Manual) 0.8 (0.0-1.0) 10^3/uL Eosinophils # (Manual) 0.0 (0-0.7) 10^3/uL Basophils # (Manual) 0.0 (0-0.1) 10^3/uL Differential Comment MANUAL DIFFERENTIAL RBC Morph Micro Appear 1+ ANISOCYTOSIS (NORMAL) Sodium (135-145) mmol/L Potassium (3.5-5.0) mmol/L Chloride (101-111) mmol/L Carbon Dioxide (21-32) mmol/L Anion Gap (6-13) BUN (6-20) mg/dL Creatinine (0.4-1.0) mg/dL Estimated GFR (MDRD) (>89) Glucose (70-100) mg/dL POC Whole Bld Glucose 96 109 H (70 - 100) mg/dL Calcium (8.5-10.3) mg/dL 08/11/21 08/11/21 08/11/21 Range/Units 17:59 11:03 07:36 WBC (4.8-10.8) x10^3/uL RBC (4.20-5.40) 10^6/uL Hgb (12.0-16.0) g/dL Hct (37.0-47.0) % MCV (81.0-99.0) fL MCH (27.0-31.0) pg MCHC (32.0-36.0) g/dL RDW (12.0-15.0) % Plt Count (130-450) 10^3/uL MPV (7.9-10.8) fL Neut # (Auto) Lymph # (Auto) [place] # (Auto) Eos # (Auto) Baso # (Auto) Absolute Nucleated RBC Total Counted Band Neuts % (Manual) (0 - 10) % Abnorm Lymph % (Manual) % Metamyelocytes % ( - 0) % Myelocytes % ( - 0) % Nucleated RBC % Neutrophils # (Manual) (1.5-6.6) 10^3/uL Lymphocytes # (Manual) (1.5-3.5) 10^3/uL Monocytes # (Manual) (0.0-1.0) 10^3/uL Eosinophils # (Manual) (0-0.7) 10^3/uL Basophils # (Manual) (0-0.1) 10^3/uL Differential Comment RBC Morph Micro Appear (NORMAL) Sodium 139 (135-145) mmol/L Potassium 3.7 (3.5-5.0) mmol/L Chloride 108 (101-111) mmol/L Carbon Dioxide 24 (21-32) mmol/L Anion Gap 7.0 (6-13) BUN 25 H (6-20) mg/dL Creatinine 0.6 (0.4-1.0) mg/dL Estimated GFR (MDRD) 100 (>89) Glucose 122 H (70-100) mg/dL POC Whole Bld Glucose 103 H 112 H (70 - 100) mg/dL Calcium 8.3 L (8.5-10.3) mg/dL ABX Reporting Has patient been on IV antibiotics over the past 48 hours?: Yes Sepsis Event Note (H) - Evaluation Current Stage of Sepsis: Severe sepsis Possible source of Sepsis: positive: GI tract/intra-abdominal - Sepsis Criteria Sepsis Criteria: Recorded Heart Rate greater than 90 bpm, WBC count greater than 10% bands, WBC count greater than 12,000 or less than 4000, Metabolic: lactate > 2 mmol/L Assessment/Plan - Problem List (1) Severe sepsis Impression: This is secondary to perforated abdominal viscus. She fortunately remains afebrile and her white count is trending down. She has an increase in her bands today but overall appears clinically improved. Cultures from the OR are growing E. coli and so we will discontinue vancomycin. We will keep her on cefepime and Flagyl for the time being and we will look to de-escalate potentially to ceftriaxone and flagyl over next 24 hours as long as she continues to clinically improve. (2) Perforated abdominal viscus Impression: This was the cause of her sepsis. She had a perforated sigmoid colon with pur ulent ascitic fluid. Over 1.5 L was drained and cultures are growing E. coli. We will discontinue vancomycin and continue cefepime and Flagyl IV. If she continues to clinically improve then we can consider de-escalating to ceftriaxone and Flagyl as mentioned above. (3) Status post colostomy Impression: She is now postop day 3 of a colectomy with diverting colostomy and Funk's pouch. She does have postoperative ileus. She remains n.p.o. and is on PPN. Continue cefepime and Flagyl IV. Pain control with morphine as needed. (4) Atrial fibrillation with RVR Impression: She had a brief episode of a tribulation early on during this hospitalization but she has since been in a sinus rhythm. Her heart rates are stable in the 90s. We are holding anticoagulation given the recent surgical intervention and the fact that this was a very brief episode. Her echocardiogram also showed a normal left atrial volume index. We will discuss long-term anticoagulation as she improves. We will look to resume oral metoprolol once she is taking p.o. We will resume IV Lopressor today given her blood pressures are improved. (5) Lower extremity edema Impression: This is ongoing and secondary to the IV fluids she received initially for the sepsis. She is still quite edematous but her echocardiogram showed no evidence of heart failure and duplex was negative for DVT. She will need diuresis at some point but will continue to hold off on the time given recent surgical inte rvention and lack of hypoxia or dyspnea. Continue with leg elevation. (6) Hyperglycemia Impression: This is now resolved. This was secondary to the dextrose and her PPN. We have adjusted the amount of dextrose and her blood glucose is now in the acceptable r fabienne. Her A1c was within normal limits. (7) Hypokalemia Impression: This is resolved.
[2021-08-12 08:17] LABS: CALCIUM 8.2 mg/dL (8.5-10.3); CREATININE 0.6 mg/dL (0.4-1.0); POTASSIUM 3.7 mmol/L (3.5-5.0)
[2021-08-12] MEDS: CEFEPIME 2 GM in SODIUM CHLORIDE 0.9% MINIBAG 100 ML IV SCH ×2 (08:32→21:15)
[2021-08-12] MEDS: BISACODYL 10 MG SUPP PR SCH (08:33)
[2021-08-12] MEDS: ENOXAPARIN 40 MG/0.4 ML SYRINGE SUBQ SCH (08:33)
[2021-08-12] MEDS: ASPIRIN CHEW 81 MG TABLET PO SCH (08:33)
--- NOTE | 2021-08-12 08:59 | PROVIDER PROGRESS NOTE ---
Subjective - General Admit Date: 08/04/21 Procedure Date: 08/09/21 Post Op Days: 3 - Review of Systems Wound/Incisions: positive: Healing well Drain Type: Mo Drain Output Description: Serous General: positive: Weakness HEENT: positive: No symptoms Pulmonary: negative: Shortness of breath Cardiovascular: positive: No symptoms Gastrointestinal: positive: Abdominal pain. negative: Nausea, Vomiting Genitourinary: positive: No symptoms Skin: positive: Other (Still frustrated about the swelling) All Other Systems: positive: Reviewed and negative - Other Other Information/Narrative: Na is in good spirits this morning. She feels her pain is well controlled. Denies any nausea. Not feeling hungry but definitely wants her ice chips and popsicles. Objective - Patient Data Reviewed Vital Signs: Yes Vital Signs: Vital Signs x48h Pulse Resp BP Pulse Ox 08/12/21 07:56 94 20 137/74 H 97 08/12/21 05:00 93 18 137/78 H 97 08/12/21 01:00 97 18 145/85 H 96 Weight: Weight 08/10/21 08/11/21 08/12/21 23:59 23:59 23:59 Weight (kg) 95 kg 95.5 kg Intake & Output: Intake and Output Totals x24h 08/10/21 08/11/21 08/12/21 23:59 23:59 23:59 Intake Total 6186.000 3804.333 100 Output Total 1458 1407 390 Balance 4728.000 2397.333 -290 - Lab Results Lab Results: 08/12/21 06:25 08/12/21 08:00 Other Lab Results: Lab Results x24hrs 08/12/21 08/12/21 08/12/21 Range/Units 08:00 06:25 06:11 WBC 25.4 H (4.8-10.8) x10^3/uL RBC 3.56 L (4.20-5.40) 10^6/uL Hgb 11.1 L (12.0-16.0) g/dL Hct 33.6 L (37.0-47.0) % MCV 94.4 (81.0-99.0) fL MCH 31.2 H (27.0-31.0) pg MCHC 33.0 (32.0-36.0) g/dL RDW 13.4 (12.0-15.0) % Plt Count 345 (130-450) 10^3/uL MPV 9.2 (7.9-10.8) fL Neut # (Auto) Not Reportable Lymph # (Auto) Not Reportable [place] # (Auto) Not Reportable Eos # (Auto) Not Reportable Baso # (Auto) Not Reportable Absolute Nucleated RBC Not Reportable Total Counted 100 Band Neuts % (Manual) 13 H (0 - 10) % Abnorm Lymph % (Manual) 0 % Metamyelocytes % 1 H ( - 0) % Myelocytes % 1 H ( - 0) % Nucleated RBC % Not Reportable Neutrophils # (Manual) 23.6 H (1.5-6.6) 10^3/uL Lymphocytes # (Manual) 0.5 L (1.5-3.5) 10^3/uL Monocytes # (Manual) 0.8 (0.0-1.0) 10^3/uL Eosinophils # (Manual) 0.0 (0-0.7) 10^3/uL Basophils # (Manual) 0.0 (0-0.1) 10^3/uL Differential Comment MANUAL DIFFERENTIAL RBC Morph Micro Appear 1+ ANISOCYTOSIS (NORMAL) Sodium 136 (135-145) mmol/L Potassium 3.7 (3.5-5.0) mmol/L Chloride 105 (101-111) mmol/L Carbon Dioxide 27 (21-32) mmol/L Anion Gap 4.0 L (6-13) BUN 22 H (6-20) mg/dL Creatinine 0.6 (0.4-1.0) mg/dL Estimated GFR (MDRD) 100 (>89) Glucose 101 H (70-100) mg/dL POC Whole Bld Glucose 96 (70 - 100) mg/dL Calcium 8.2 L (8.5-10.3) mg/dL 08/12/21 08/11/21 08/11/21 Range/Units 00:15 17:59 11:03 WBC (4.8-10.8) x10^3/uL RBC (4.20-5.40) 10^6/uL Hgb (12.0-16.0) g/dL Hct (37.0-47.0) % MCV (81.0-99.0) fL MCH (27.0-31.0) pg MCHC (32.0-36.0) g/dL RDW (12.0-15.0) % Plt Count (130-450) 10^3/uL MPV (7.9-10.8) fL Neut # (Auto) Lymph # (Auto) [place] # (Auto) Eos # (Auto) Baso # (Auto) Absolute Nucleated RBC Total Counted Band Neuts % (Manual) (0 - 10) % Abnorm Lymph % (Manual) % Metamyelocytes % ( - 0) % Myelocytes % ( - 0) % Nucleated RBC % Neutrophils # (Manual) (1.5-6.6) 10^3/uL Lymphocytes # (Manual) (1.5-3.5) 10^3/uL Monocytes # (Manual) (0.0-1.0) 10^3/uL Eosinophils # (Manual) (0-0.7) 10^3/uL Basophils # (Manual) (0-0.1) 10^3/uL Differential Comment RBC Morph Micro Appear (NORMAL) Sodium (135-145) mmol/L Potassium (3.5-5.0) mmol/L Chloride (101-111) mmol/L Carbon Dioxide (21-32) mmol/L Anion Gap (6-13) BUN (6-20) mg/dL Creatinine (0.4-1.0) mg/dL Estimated GFR (MDRD) (>89) Glucose (70-100) mg/dL POC Whole Bld Glucose 109 H 103 H 112 H (70 - 100) mg/dL Calcium (8.5-10.3) mg/dL - Current Medications Current Medications: Current Medications Generic Name Dose Route Start Last Admin Trade Name Freq PRN Reason Stop Dose Admin Acetaminophen 650 mg 08/04/21 14:01 08/12/21 08:34 Acetaminophen 325 Mg Tablet PO 650 mg Q4HR PRN Administration PAIN Albuterol 2.5 mg 08/04/21 17:26 08/09/21 15:14 Albuterol Neb 2.5 Mg/3 Ml INH 2.5 mg RTQ4H PRN Administration Wheezing Aspirin 81 mg 08/05/21 09:00 08/12/21 08:33 Aspirin Chew 81 Mg Tablet PO 81 mg DAILY [facility] Administration Bisacodyl 10 mg 08/05/21 09:00 08/12/21 08:33 Bisacodyl 10 Mg Supp [place] Not Given DAILY [facility] Enoxaparin Sodium 40 mg 08/05/21 09:00 08/12/21 08:33 Enoxaparin 40 Mg/0.4 Ml Syringe SUBQ 40 mg DAILY [facility] Administration Hydromorphone HCl 0.5 mg 08/10/21 20:22 08/12/21 06:21 Hydromorphone 0.5 Mg/0.5 Ml Syringe IVP 0.5 mg Q1H PRN Administration PAIN Cefepime HCl 2 gm/ Sodium 100 mls @ 200 mls/hr 08/07/21 09:00 08/12/21 08:32 Chloride IV 200 mls/hr BID [facility] Administration Metronidazole 500 mg in 100 mls @ 100 mls/hr 08/07/21 15:00 08/12/21 01:30 Flagyl 500 Mg/100 Ml IV Infused Q8H [facility] Infusion Multivitamins 10 ml/ TRACE 2,011 mls @ 83 mls/hr 08/10/21 17:00 08/11/21 16:43 ELEMENTS 1 ml/ Amino Acids/ IV 83 mls/hr Electrolytes/Dextrose Q24H [facility] Administration Protocol Insulin Human Regular 1 - 9 unit 08/10/21 18:00 08/12/21 06:12 Insulin Regular Human 300 Unit/3 Ml Vial SUBQ Not Given Q6HR [facility] Protocol Morphine Sulfate 2 mg 08/06/21 10:21 08/10/21 18:14 Morphine 2 Mg/Ml Carpuject IVP 2 mg Q2HR PRN Administration PAIN Pantoprazole Sodium 40 mg 08/05/21 07:00 08/12/21 06:01 Pantoprazole 40 Mg Tablet PO 40 mg QDAC [facility] Administration Sodium Chloride 10 ml 08/04/21 17:00 08/12/21 08:33 Sodium Chloride Flush 0.9% 10 Ml Syringe IVP 10 ml 0100,0900,1700 [facility] Administration Sodium Chloride 10 ml 08/04/21 14:01 08/11/21 22:47 Sodium Chloride Flush 0.9% 10 Ml Syringe IVP 30 ml PRN PRN Administration NEEDED PER PROVIDER ORDERS - Physical Exam Wound/Incisions: positive: Other (Clean and healing. No foul odor. Vascularized tissue) General Appearance: positive: No acute distress, Alert Eyes Bilateral: positive: Normal inspection ENT: positive: ENT inspection nml Neck: positive: Nml inspection Respiratory: positive: No respiratory distress Abdomen: positive: No distention, Tenderness, Other (quiet with few bowel tones. Ostomy is edematous but warm and viable.) Neurologic/Psychiatric: positive: Other (++ edema) ABX Reporting Has patient been on IV antibiotics over the past 48 hours?: Yes Impression/Plan - Problem List Problem List: POD after Exploratory laparotomy with arias procedure for obstruction and perforation secondary to extreme constipation. 1. Continue NPO but ice chips, sips and popsicles are fine as long as she has no nausea. Expect a prolonged postoperative ileus. 2. Agree with stopping vanc but would not make further changes in antibiotics at this time. We cannot really see the entire organism profile as she was on full dose antibiosis at the time of the cultures. 3. Gaspar remains in place. Would leave for now as her edema is significant and she remains septic with significant third spacing. 4. Other medical management per the Hospitalist team. Appreciate them so much
[2021-08-12] MEDS ORDERED: METOPROLOL 5 MG/5 ML VIAL IVP SCH (09:30)
[2021-08-12] MEDS: ALBUTEROL NEB 2.5 MG/3 ML INH PRN ×2 (13:11→19:17)
[2021-08-12] MEDS: SODIUM CHLORIDE 0.9% 500 ML IV PRN (17:10)
[2021-08-12] MEDS: METOPROLOL 5 MG/5 ML VIAL IVP SCH ×2 (17:10→23:50)
[2021-08-12] MEDS: MULTIVITAMIN IV SCH ×3 (18:30)
[2021-08-12] MEDS: TRACE ELEMENTS IV SCH ×3 (18:30)
[2021-08-12] MEDS: TPN IV SCH ×3 (18:30)
[2021-08-12] MEDS: SODIUM CHLORIDE FLUSH 0.9% 10 ML SYRINGE IVP PRN (19:49)
[2021-08-13] MEDS: metroNIDAZOLE 500 MG/100 ML 500 MG/100 ML BAG IV SCH ×3 (00:01→16:27)
[2021-08-13] MEDS: ALBUTEROL NEB 2.5 MG/3 ML INH PRN ×5 (00:56→21:04)
[2021-08-13] MEDS: HYDROmorphone 0.5 MG/0.5 ML SYRINGE IVP PRN ×10 (02:02→23:37)
[2021-08-13] MEDS: METOPROLOL 5 MG/5 ML VIAL IVP SCH ×4 (04:45→23:37)
[2021-08-13] MEDS: INSULIN REGULAR HUMAN 300 UNIT/3 ML VIAL SUBQ SCH ×4 (05:43→23:36)
[2021-08-13] MEDS: PANTOPRAZOLE 40 MG TABLET PO SCH (06:00)
[2021-08-13 06:04] LABS: BASOPHILS % (AUTO) 0.4 %; EOSINOPHILS % (AUTO) 0.4 %; HCT - HEMATOCRIT 33.6 % (37.0-47.0); LYMPHOCYTES % (AUTO) 2.5 %; MEAN CORPUSCULAR HEMOGLOBIN 30.6 pg (27.0-31.0); MEAN CORPUSCULAR HGB CONC 32.7 g/dL (32.0-36.0); MEAN CORPUSCULAR VOLUME 93.3 fL (81.0-99.0); MEAN PLATELET VOLUME 8.5 fL (7.9-10.8); MONOCYTES % (AUTO) 5.2 %; NEUTROPHILS % (AUTO) 86.2 %; PLT - PLATELET COUNT 410 10^3/uL (130-450); RED CELL DISTRIBUTION WIDTH 13.1 % (12.0-15.0); WHITE BLOOD COUNT 20.4 x10^3/uL (4.8-10.8)
[2021-08-13 06:13] LABS: ABNORMAL LYMPHS % (MANUAL) 0 %; BAND NEUTROPHILS % (MANUAL) 0 %
[2021-08-13 06:17] LABS: ALBUMIN 1.4 g/dL (3.2-5.5); BILIRUBIN,TOTAL 0.3 mg/dL (0.2-1.0); CALCIUM 7.9 mg/dL (8.5-10.3); CREATININE 0.5 mg/dL (0.4-1.0); MAGNESIUM 1.7 mg/dL (1.7-2.8); POTASSIUM 3.3 mmol/L (3.5-5.0); TOTAL PROTEIN 4.1 g/dL (6.7-8.2)
[2021-08-13 06:18] LABS: ALBUMIN/GLOBULIN RATIO 0.5 (1.0-2.2)
[2021-08-13 06:27] LABS: LYMPHOCYTES # (MANUAL) 0.4 10^3/uL (1.5-3.5); LYMPHOCYTES % (MANUAL) 2 %; METAMYELOCYTES % (MANUAL) 1 %; MYELOCYTES % (MANUAL) 1 %; NEUTROPHILS # (MANUAL) 18.6 10^3/uL (1.5-6.6)
[2021-08-13 06:28] LABS: DIFFERENTIAL COMMENT MANUAL DIFFERENTIAL; PLATELET ESTIMATE, MANUAL NORMAL (130-450,000) (NORMAL); PLATELET MORPHOLOGY NORMAL APPEARANCE (NORMAL); RBC MORPHOLOGY (MULTIPLE) NORMAL APPEARANCE (NORMAL); WBC MORPHOLOGY (MULTIPLE) NORMAL APPEARANCE (NORMAL)
--- NOTE | 2021-08-13 08:03 | PROVIDER PROGRESS NOTE ---
Subjective - General Admit Date: 08/04/21 Procedure Date: 08/09/21 Post Op Days: 4 Procedure Performed: Laparotomy with Kenneth procedure - Review of Systems Wound/Incisions: positive: Other (Clean and healing. No foul odor. Vascularized tissue) Drain Type: Mo Drain Output Description: Serous General: positive: Weakness HEENT: positive: No symptoms Pulmonary: negative: Shortness of breath Cardiovascular: positive: No symptoms Gastrointestinal: positive: Abdominal pain. negative: Nausea, Vomiting Genitourinary: positive: No symptoms Skin: positive: Other (Still frustrated about the swelling) All Other Systems: positive: Reviewed and negative - Other Other Information/Narrative: Na tells me she is feeling a little better today. She is noticed that her face is improving and her hands are improving and overall she thinks she feels a little better. She is little bit frustrated that her ostomy is leaking at the bottom of it. She tells me she was afraid to work with physical therapy today but she is going to try to work with them tomorrow.She would like to be able to get up and walk around. Objective - Patient Data Reviewed Vital Signs: Yes Vital Signs: Vital Signs x48h Pulse Pulse Resp BP BP Pulse Ox 08/13/21 07:20 86 25 H 08/13/21 05:45 87 151/75 H 08/13/21 05:30 86 149/73 H 08/13/21 05:15 76 140/82 H 08/13/21 05:00 77 142/70 H 08/13/21 04:55 78 147/74 H 08/13/21 04:50 86 145/77 H 08/13/21 04:45 89 143/79 H 143/79 H 08/13/21 00:56 92 18 08/13/21 00:50 79 18 136/69 H 94 08/13/21 00:35 77 138/70 H 08/13/21 00:20 78 135/74 H 08/13/21 00:05 81 137/80 H Weight: Weight 08/11/21 08/12/21 08/13/21 23:59 23:59 23:59 Weight (kg) 95.5 kg 100 kg Intake & Output: Intake and Output Totals x24h 08/11/21 08/12/21 08/13/21 23:59 23:59 23:59 Intake Total 3804.333 294 160 Output Total 1407 1455 370 Balance 9397.333 1491 -473 - Lab Results Lab Results: 08/13/21 06:00 08/13/21 06:00 Other Lab Results: Lab Results x24hrs 08/13/21 08/13/21 08/13/21 Range/Units 06:00 06:00 05:39 WBC 20.4 H (4.8-10.8) x10^3/uL RBC 3.60 L (4.20-5.40) 10^6/uL Hgb 11.0 L (12.0-16.0) g/dL Hct 33.6 L (37.0-47.0) % MCV 93.3 (81.0-99.0) fL MCH 30.6 (27.0-31.0) pg MCHC 32.7 (32.0-36.0) g/dL RDW 13.1 (12.0-15.0) % Plt Count 410 (130-450) 10^3/uL MPV 8.5 (7.9-10.8) fL Neut # (Auto) Not Reportable Lymph # (Auto) Not Reportable Eddy # (Auto) Not Reportable Eos # (Auto) Not Reportable Baso # (Auto) Not Reportable Absolute Nucleated RBC Not Reportable Total Counted 100 Band Neuts % (Manual) 0 (0 - 10) % Abnorm Lymph % (Manual) 0 % Metamyelocytes % 1 H ( - 0) % Myelocytes % 1 H ( - 0) % Nucleated RBC % Not Reportable Neutrophils # (Manual) 18.6 H (1.5-6.6) 10^3/uL Lymphocytes # (Manual) 0.4 L (1.5-3.5) 10^3/uL Monocytes # (Manual) 1.0 (0.0-1.0) 10^3/uL Eosinophils # (Manual) 0.0 (0-0.7) 10^3/uL Basophils # (Manual) 0.0 (0-0.1) 10^3/uL Differential Comment MANUAL DIFFERENTIAL WBC Morphology NORMAL APPEARANCE (NORMAL) Platelet Estimate NORMAL (130-450,000) (NORMAL) Platelet Morphology NORMAL APPEARANCE (NORMAL) RBC Morph Micro Appear NORMAL APPEARANCE (NORMAL) Sodium 136 (135-145) mmol/L Potassium 3.3 L (3.5-5.0) mmol/L Chloride 103 (101-111) mmol/L Carbon Dioxide 27 (21-32) mmol/L Anion Gap 6.0 (6-13) BUN 18 (6-20) mg/dL Creatinine 0.5 (0.4-1.0) mg/dL Estimated GFR (MDRD) 123 (>89) Glucose 197 H (70-100) mg/dL POC Whole Bld Glucose 211 H (70 - 100) mg/dL Calcium 7.9 L (8.5-10.3) mg/dL Phosphorus 2.0 L (2.5-4.6) mg/dL Magnesium 1.7 (1.7-2.8) mg/dL Total Bilirubin 0.3 (0.2-1.0) mg/dL AST 19 (10-42) IU/L ALT 15 (10-60) IU/L Alkaline Phosphatase 52 (42-121) IU/L Total Protein 4.1 L (6.7-8.2) g/dL Albumin 1.4 L (3.2-5.5) g/dL Globulin 2.7 (2.1-4.2) g/dL Albumin/Globulin Ratio 0.5 L (1.0-2.2) Prealbumin 6 L (18-45) mg/dL Triglycerides 102 ( - 149) mg/dL 08/12/21 08/12/21 08/12/21 Range/Units 23:42 17:33 11:16 WBC (4.8-10.8) x10^3/uL RBC (4.20-5.40) 10^6/uL Hgb (12.0-16.0) g/dL Hct (37.0-47.0) % MCV (81.0-99.0) fL MCH (27.0-31.0) pg MCHC (32.0-36.0) g/dL RDW (12.0-15.0) % Plt Count (130-450) 10^3/uL MPV (7.9-10.8) fL Neut # (Auto) Lymph # (Auto) Eddy # (Auto) Eos # (Auto) Baso # (Auto) Absolute Nucleated RBC Total Counted Band Neuts % (Manual) (0 - 10) % Abnorm Lymph % (Manual) % Metamyelocytes % ( - 0) % Myelocytes % ( - 0) % Nucleated RBC % Neutrophils # (Manual) (1.5-6.6) 10^3/uL Lymphocytes # (Manual) (1.5-3.5) 10^3/uL Monocytes # (Manual) (0.0-1.0) 10^3/uL Eosinophils # (Manual) (0-0.7) 10^3/uL Basophils # (Manual) (0-0.1) 10^3/uL Differential Comment WBC Morphology (NORMAL) Platelet Estimate (NORMAL) Platelet Morphology (NORMAL) RBC Morph Micro Appear (NORMAL) Sodium (135-145) mmol/L Potassium (3.5-5.0) mmol/L Chloride (101-111) mmol/L Carbon Dioxide (21-32) mmol/L Anion Gap (6-13) BUN (6-20) mg/dL Creatinine (0.4-1.0) mg/dL Estimated GFR (MDRD) (>89) Glucose (70-100) mg/dL POC Whole Bld Glucose 169 H 94 87 (70 - 100) mg/dL Calcium (8.5-10.3) mg/dL Phosphorus (2.5-4.6) mg/dL Magnesium (1.7-2.8) mg/dL Total Bilirubin (0.2-1.0) mg/dL AST (10-42) IU/L ALT (10-60) IU/L Alkaline Phosphatase (42-121) IU/L Total Protein (6.7-8.2) g/dL Albumin (3.2-5.5) g/dL Globulin (2.1-4.2) g/dL Albumin/Globulin Ratio (1.0-2.2) Prealbumin (18-45) mg/dL Triglycerides ( - 149) mg/dL 08/12/21 Range/Units 08:00 WBC (4.8-10.8) x10^3/uL RBC (4.20-5.40) 10^6/uL Hgb (12.0-16.0) g/dL Hct (37.0-47.0) % MCV (81.0-99.0) fL MCH (27.0-31.0) pg MCHC (32.0-36.0) g/dL RDW (12.0-15.0) % Plt Count (130-450) 10^3/uL MPV (7.9-10.8) fL Neut # (Auto) Lymph # (Auto) Eddy # (Auto) Eos # (Auto) Baso # (Auto) Absolute Nucleated RBC Total Counted Band Neuts % (Manual) (0 - 10) % Abnorm Lymph % (Manual) % Metamyelocytes % ( - 0) % Myelocytes % ( - 0) % Nucleated RBC % Neutrophils # (Manual) (1.5-6.6) 10^3/uL Lymphocytes # (Manual) (1.5-3.5) 10^3/uL Monocytes # (Manual) (0.0-1.0) 10^3/uL Eosinophils # (Manual) (0-0.7) 10^3/uL Basophils # (Manual) (0-0.1) 10^3/uL Differential Comment WBC Morphology (NORMAL) Platelet Estimate (NORMAL) Platelet Morphology (NORMAL) RBC Morph Micro Appear (NORMAL) Sodium 136 (135-145) mmol/L Potassium 3.7 (3.5-5.0) mmol/L Chloride 105 (101-111) mmol/L Carbon Dioxide 27 (21-32) mmol/L Anion Gap 4.0 L (6-13) BUN 22 H (6-20) mg/dL Creatinine 0.6 (0.4-1.0) mg/dL Estimated GFR (MDRD) 100 (>89) Glucose 101 H (70-100) mg/dL POC Whole Bld Glucose (70 - 100) mg/dL Calcium 8.2 L (8.5-10.3) mg/dL Phosphorus (2.5-4.6) mg/dL Magnesium (1.7-2.8) mg/dL Total Bilirubin (0.2-1.0) mg/dL AST (10-42) IU/L ALT (10-60) IU/L Alkaline Phosphatase (42-121) IU/L Total Protein (6.7-8.2) g/dL Albumin (3.2-5.5) g/dL Globulin (2.1-4.2) g/dL Albumin/Globulin Ratio (1.0-2.2) Prealbumin (18-45) mg/dL Triglycerides ( - 149) mg/dL - Current Medications Current Medications: Current Medications Generic Name Dose Route Start Last Admin Trade Name Freq PRN Reason Stop Dose Admin Acetaminophen 650 mg 08/04/21 14:01 08/12/21 23:39 Acetaminophen 325 Mg Tablet PO 650 mg Q4HR PRN Administration PAIN Albuterol 2.5 mg 08/04/21 17:26 08/13/21 07:18 Albuterol Neb 2.5 Mg/3 Ml INH 2.5 mg RTQ4H PRN Administration Wheezing Aspirin 81 mg 08/05/21 09:00 08/12/21 08:33 Aspirin Chew 81 Mg Tablet PO 81 mg DAILY INGA Administration Bisacodyl 10 mg 08/05/21 09:00 08/12/21 08:33 Bisacodyl 10 Mg Supp IA Not Given DAILY INGA Enoxaparin Sodium 40 mg 08/05/21 09:00 08/12/21 08:33 Enoxaparin 40 Mg/0.4 Ml Syringe SUBQ 40 mg DAILY INGA Administration Hydromorphone HCl 0.5 mg 08/10/21 20:22 08/13/21 05:55 Hydromorphone 0.5 Mg/0.5 Ml Syringe IVP 0.5 mg Q1H PRN Administration PAIN Cefepime HCl 2 gm/ Sodium 100 mls @ 200 mls/hr 08/07/21 09:00 08/12/21 22:03 Chloride IV Infused BID INGA Infusion Metronidazole 500 mg in 100 mls @ 100 mls/hr 08/07/21 15:00 08/13/21 01:04 Flagyl 500 Mg/100 Ml IV Infused Q8H INGA Infusion Multivitamins 10 ml/ TRACE 2,011 mls @ 70 mls/hr 08/12/21 19:00 08/12/21 18:30 ELEMENTS 1 ml/ Amino Acids/ IV 70 mls/hr Electrolytes TPN/PPN INGA Administration Protocol Sodium Chloride 500 mls @ 20 mls/hr 08/12/21 16:32 08/12/21 17:10 Normal Saline 0.9% IV 20 mls/hr Q24H PRN Administration TKO RATE Insulin Human Regular 1 - 9 unit 08/10/21 18:00 08/13/21 05:43 Insulin Regular Human 300 Unit/3 Ml Vial SUBQ 3 unit Q6HR INGA Administration Protocol Metoprolol Tartrate 5 mg 08/12/21 17:00 08/13/21 04:45 Metoprolol 5 Mg/5 Ml Vial IVP 5 mg Q6H INGA Administration Morphine Sulfate 2 mg 08/06/21 10:21 08/10/21 18:14 Morphine 2 Mg/Ml Carpuject IVP 2 mg Q2HR PRN Administration PAIN Pantoprazole Sodium 40 mg 08/05/21 07:00 08/13/21 06:00 Pantoprazole 40 Mg Tablet PO 40 mg QDAC INGA Administration Sodium Chloride 10 ml 08/04/21 17:00 08/12/21 17:12 Sodium Chloride Flush 0.9% 10 Ml Syringe IVP 10 ml 0100,0900,1700 INGA Administration Sodium Chloride 10 ml 08/04/21 14:01 08/12/21 19:49 Sodium Chloride Flush 0.9% 10 Ml Syringe IVP 10 ml PRN PRN Administration NEEDED PER PROVIDER ORDERS - Physical Exam Wound/Incisions: positive: Dressing dry and intact, Other (ostomy is viable and warm and improving) General Appearance: positive: No acute distress, Alert Eyes Bilateral: positive: Normal inspection ENT: positive: ENT inspection nml Respiratory: positive: No respiratory distress Cardiovascular: positive: Regular rate & rhythm Abdomen: positive: Tenderness, Other (hypoactive bowel tones) Skin: positive: Color nml, Other (Anasarca is noted but some improvement in the hands and face) Extremities: positive: Pedal edema Neurologic/Psychiatric: positive: Oriented x3 ABX Reporting Has patient been on IV antibiotics over the past 48 hours?: Yes Impression/Plan - Problem List Problem List: Perforated colon secondary to profound constipation 1. Continue current antibiotic regimen 2. Will discontinue the suppository order that is left over from the preop area 3. Blood sugars elevated secondary to TPN. We will continue sliding scale 4. Start low-dose Reglan. 5. Discontinue Gaspar catheter 6. Ambulate 3 times daily.
[2021-08-13] MEDS: CEFEPIME 2 GM in SODIUM CHLORIDE 0.9% MINIBAG 100 ML IV SCH ×2 (08:15→20:51)
[2021-08-13] MEDS: BISACODYL 10 MG SUPP PR SCH (08:15)
[2021-08-13] MEDS: ASPIRIN CHEW 81 MG TABLET PO SCH (08:15)
[2021-08-13] MEDS: ENOXAPARIN 40 MG/0.4 ML SYRINGE SUBQ SCH (08:15)
[2021-08-13] MEDS: SODIUM CHLORIDE FLUSH 0.9% 10 ML SYRINGE IVP SCH ×3 (08:16→23:37)
[2021-08-13] MEDS: POTASSIUM CHLOR 10 MEQ/100 ML 10 MEQ/100 ML BAG IV SCH ×4 (11:19→14:47)
[2021-08-13] MEDS: METOCLOPRAMIDE 10 MG/2 ML VIAL IVP SCH ×2 (18:04→23:37)
[2021-08-13] MEDS: TPN IV SCH ×3 (18:59)
[2021-08-13] MEDS: SODIUM CHLORIDE 0.9% 500 ML IV PRN (18:59)
[2021-08-13] MEDS: TRACE ELEMENTS IV SCH ×3 (18:59)
[2021-08-13] MEDS: MULTIVITAMIN IV SCH ×3 (18:59)
[2021-08-13] MEDS ORDERED: FUROSEMIDE 20 MG/2 ML VIAL IVP STA (19:18)
--- NOTE | 2021-08-13 19:54 | PROVIDER PROGRESS NOTE ---
Assessment/Plan - Problem List (1) Perforated abdominal viscus Assessment/Plan: This was the cause of her sepsis. She had a perforated sigmoid colon with purulent ascitic fluid. Over 1.5 L was drained and cultures are growing E. coli. We discontinued iv vancomycin and continued iv cefepime and Flagyl IV. If she continues to clinically improve then we can consider de-escalating to ceftriaxone and Flagyl. (2) Status post colostomy Impression: She is now postop day 4 of a colectomy with diverting colostomy and Funk's pouch. She does have postoperative ileus. She remains n.p.o. except meds and is on PPN. Continue cefepime and Flagyl IV. Pain control with morphine as needed. Other management as per Gen Surgery. (3) Lower extremity edema Impression: This is ongoing and secondary to the IV fluids she received initially for the sepsis. She is still quite edematous but her Echocardiogram showed no evidence o f heart failure and leg duplex doppler was negative for DVT. Today she also complained of mild SOB Will order a CXR and order Lasix iv now and daily in a.m. Continue with leg elevation. (4) Atrial fibrillation with RVR Impression: She had a brief episode of Afib with RVR early on during this hospitalization but she has since been in a sinus rhythm. Her heart rates are stable in the 90s. We are holding anticoagulation given the recent surgical intervention and the fact that this was a very brief episode of Afib. Her Echocardiogram also showed a normal left atrial volume index, therefore her CHADS score is 0. We will consider long-term ASA vs (unliklely) anticoagulation, as she improves. We are using IV Lopressor, given her blood pressures are not as low. We will look to resume oral metoprolol once she is taking p.o. (5) Hyperglycemia Impression: This has now resolved. This was secondary to the dextrose in her PPN. We have adjusted the amount of dextrose and her blood glucose is now in the acceptable range. Her A1c was within normal limits. (6) Hypokalemia Impression: This has resolved. (7) Severe sepsis Impression: This was secondary to perforated abdominal viscus. She fortunately remains afebrile and her white count is trending down and Bands have normalized. - Current Meds Current Meds: Current Medications Generic Name Dose Route Start Last Admin Trade Name Freq PRN Reason Stop Dose Admin Acetaminophen 650 mg 08/04/21 14:01 08/12/21 23:39 Acetaminophen 325 Mg Tablet PO 650 mg Q4HR PRN Administration PAIN Albuterol 2.5 mg 08/04/21 17:26 08/13/21 16:27 Albuterol Neb 2.5 Mg/3 Ml INH 2.5 mg RTQ4H PRN Administration Wheezing Aspirin 81 mg 08/05/21 09:00 08/13/21 08:15 Aspirin Chew 81 Mg Tablet PO 81 mg DAILY INGA Administration Enoxaparin Sodium 40 mg 08/05/21 09:00 08/13/21 08:15 Enoxaparin 40 Mg/0.4 Ml Syringe SUBQ 40 mg DAILY INGA Administration Hydromorphone HCl 0.5 mg 08/10/21 20:22 08/13/21 18:59 Hydromorphone 0.5 Mg/0.5 Ml Syringe IVP 0.5 mg Q1H PRN Administration PAIN Cefepime HCl 2 gm/ Sodium 100 mls @ 200 mls/hr 08/07/21 09:00 08/13/21 10:01 Chloride IV Infused BID INGA Infusion Metronidazole 500 mg in 100 mls @ 100 mls/hr 08/07/21 15:00 08/13/21 17:30 Flagyl 500 Mg/100 Ml IV Infused Q8H INGA Infusion Multivitamins 10 ml/ TRACE 2,011 mls @ 70 mls/hr 08/12/21 19:00 08/13/21 1 8:59 ELEMENTS 1 ml/ Amino Acids/ IV 70 mls/hr Electrolytes TPN/PPN INGA Administration Protocol Sodium Chloride 500 mls @ 20 mls/hr 08/12/21 16:32 08/13/21 18:59 Normal Saline 0.9% IV 20 mls/hr Q24H PRN Administration TKO RATE Insulin Human Regular 1 - 9 unit 08/10/21 18:00 08/13/21 17:57 Insulin Regular Human 300 Unit/3 Ml Vial SUBQ 1 unit Q6HR INGA Administration Protocol Metoclopramide HCl 5 mg 08/13/21 18:00 08/13/21 18:04 Metoclopramide 10 Mg/2 Ml Vial IVP 5 mg Q6HR INGA Administration Metoprolol Tartrate 5 mg 08/12/21 17:00 08/13/21 17:55 Metoprolol 5 Mg/5 Ml Vial IVP 5 mg Q6H INGA Administration Morphine Sulfate 2 mg 08/06/21 10:21 08/10/21 18:14 Morphine 2 Mg/Ml Carpuject IVP 2 mg Q2HR PRN Administration PAIN Pantoprazole Sodium 40 mg 08/05/21 07:00 08/13/21 06:00 Pantoprazole 40 Mg Tablet PO 40 mg QDAC INGA Administration Sodium Chloride 10 ml 08/04/21 17:00 08/13/21 17:57 Sodium Chloride Flush 0.9% 10 Ml Syringe IVP 10 ml 0100,0900,1700 INGA Administration Sodium Chloride 10 ml 08/04/21 14:01 08/12/21 19:49 Sodium Chloride Flush 0.9% 10 Ml Syringe IVP 10 ml PRN PRN Administration NEEDED PER PROVIDER ORDERS - Lab Result Fish Bone Diagrams: 08/14/21 06:00 08/14/21 06:00 - Additional Planning My Orders: My Active Orders 08/13/21 19:18 Chest 1 View X-Ray [XR] Stat 08/14/21 09:00 FUROSEMIDE INJ 20mg VIAL [LASIX INJ 20mg VIAL] 20 mg IVP DAILY Subjective - Subjective Patient Reports: Shortness of Breath (RN reported that at 5 pm she feels SOB.) Objective Vital Signs: Vital Signs - 24 hr 08/12/21 08/12/21 08/13/21 23:50 23:55 00:00 Temperature Heart Rate Heart Rate [ Brachial] Heart Rate [ 80 72 88 Monitoring electrodes] Respiratory 18 Rate Blood Pressure 141/71 H Blood Pressure 141/71 H 143/75 H 151/77 H [Left Brachial artery] O2 Saturation 94 08/13/21 08/13/21 08/13/21 00:05 00:20 00:35 Temperature Heart Rate Heart Rate [ Brachial] Heart Rate [ 81 78 77 Monitoring electrodes] Respiratory Rate Blood Pressure Blood Pressure 137/80 H 135/74 H 138/70 H [Left Brachial artery] O2 Saturation 08/13/21 08/13/21 08/13/21 00:50 00:56 04:45 Temperature Heart Rate 92 Heart Rate [ Brachial] Heart Rate [ 79 89 Monitoring electrodes] Respiratory 18 18 Rate Blood Pressure 143/79 H Blood Pressure 136/69 H 143/79 H [Left Brachial artery] O2 Saturation 94 08/13/21 08/13/21 08/13/21 04:50 04:55 05:00 Temperature Heart Rate Heart Rate [ Brachial] Heart Rate [ 86 78 77 Monitoring electrodes] Respiratory Rate Blood Pressure Blood Pressure 145/77 H 147/74 H 142/70 H [Left Brachial artery] O2 Saturation 08/13/21 08/13/21 08/13/21 05:15 05:30 05:45 Temperature Heart Rate Heart Rate [ Brachial] Heart Rate [ 76 86 87 Monitoring electrodes] Respiratory Rate Blood Pressure Blood Pressure 140/82 H 149/73 H 151/75 H [Left Brachial artery] O2 Saturation 08/13/21 08/13/21 08/13/21 07:20 08:19 11:01 Temperature Heart Rate 86 Heart Rate [ Brachial] Heart Rate [ 95 Monitoring electrodes] Respiratory 25 H 18 Rate Blood Pressure 141/72 H Blood Pressure 140/77 H [Left Brachial artery] O2 Saturation 95 08/13/21 08/13/21 08/13/21 11:15 11:20 11:25 Temperature Heart Rate Heart Rate [ Brachial] Heart Rate [ 83 77 80 Monitoring electrodes] Respiratory Rate Blood Pressure Blood Pressure 138/78 H 134/73 H 142/79 H [Left Brachial artery] O2 Saturation 08/13/21 08/13/21 08/13/21 12:38 13:35 15:33 Temperature 36.8 C 37.1 C Heart Rate 93 Heart Rate [ 101 H Brachial] Heart Rate [ 98 Monitoring electrodes] Respiratory 20 20 20 Rate Blood Pressure Blood Pressure 156/84 H 141/79 H [Left Brachial artery] O2 Saturation 94 95 08/13/21 08/13/21 16:29 17:55 Temperature Heart Rate 100 Heart Rate [ Brachial] Heart Rate [ Monitoring electrodes] Respiratory 24 Rate Blood Pressure 131/91 H Blood Pressure [Left Brachial artery] O2 Saturation Oxygen O2 Source Room air I&O (Last 24 Hrs): Intake and Output Totals x24h 08/11/21 08/12/21 08/13/21 23:59 23:59 23:59 Intake Total 3804.333 2946 3087.166 Output Total 1407 1455 1530 Balance 2397.333 1491 1557.166 General: Alert, Oriented x3 HEENT: Mucous membr. moist/pink Neuro: Alert, Non Focal Cardiovascular: Regular rate Respiratory: Other (Diminished) Abdomen: Other (open wound) Extremities: Other (3+ edema, and some weeping) - Results Results: Laboratory Results WBC 20.4 x10^3/uL (4.8-10.8) H 08/13/21 06:00 RBC 3.60 10^6/uL (4.20-5.40) L 08/13/21 06:00 Hgb 11.0 g/dL (12.0-16.0) L 08/13/21 06:00 Hct 33.6 % (37.0-47.0) L 08/13/21 06:00 MCV 93.3 fL (81.0-99.0) 08/13/21 06:00 MCH 30.6 pg (27.0-31.0) 08/13/21 06:00 MCHC 32.7 g/dL (32.0-36.0) 08/13/21 06:00 RDW 13.1 % (12.0-15.0) 08/13/21 06:00 Plt Count 410 10^3/uL (130-450) 08/13/21 06:00 MPV 8.5 fL (7.9-10.8) 08/13/21 06:00 Neut # (Auto) Not Reportable 08/13/21 06:00 Lymph # (Auto) Not Reportable 08/13/21 06:00 [place] # (Auto) Not Reportable 08/13/21 06:00 Eos # (Auto) Not Reportable 08/13/21 06:00 Baso # (Auto) Not Reportable 08/13/21 06:00 Absolute Nucleated RBC Not Reportable 08/13/21 06:00 Total Counted 100 08/13/21 06:00 Band Neuts % (Manual) 0 % (0-10) 08/13/21 06:00 Abnorm Lymph % (Manual) 0 % 08/13/21 06:00 Metamyelocytes % 1 % (-0) H 08/13/21 06:00 Myelocytes % 1 % (-0) H 08/13/21 06:00 Nucleated RBC % Not Reportable 08/13/21 06:00 Neutrophils # (Manual) 18.6 10^3/uL (1.5-6.6) H 08/13/21 06:00 Lymphocytes # (Manual) 0.4 10^3/uL (1.5-3.5) L 08/13/21 06:00 Monocytes # (Manual) 1.0 10^3/uL (0.0-1.0) 08/13/21 06:00 Eosinophils # (Manual) 0.0 10^3/uL (0-0.7) 08/13/21 06:00 Basophils # (Manual) 0.0 10^3/uL (0-0.1) 08/13/21 06:00 Differential Comment MANUAL DIFFERENTIAL 08/13/21 06:00 WBC Morphology NORMAL APPEARANCE (NORMAL) 08/13/21 06:00 Platelet Estimate NORMAL (130-450,000) (NORMAL) 08/13/21 06:00 Platelet Morphology NORMAL APPEARANCE (NORMAL) 08/13/21 06:00 RBC Morph Micro Appear NORMAL APPEARANCE (NORMAL) 08/13/21 06:00 VBG pH 7.424 (7.31-7.41) H 08/09/21 09:10 VBG pCO2 29.5 mmHg (41-51) L 08/09/21 09:10 VBG pO2 75.4 mmHg (25-47) H 08/09/21 09:10 VBG HCO3 18.9 mmol/L (23-28) L 08/09/21 09:10 VBG Total CO2 19.8 mmol/L (24-29) L 08/09/21 09:10 VBG O2 Saturation 95.7 % (60-80) H 08/09/21 09:10 VBG Base Excess -4.2 mmol/L (-2 - +2) L 08/09/21 09:10 Sodium 136 mmol/L (135-145) 08/13/21 06:00 Potassium 3.3 mmol/L (3.5-5.0) L 08/13/21 06:00 Chloride 103 mmol/L (101-111) 08/13/21 06:00 Carbon Dioxide 27 mmol/L (21-32) 08/13/21 06:00 Anion Gap 6.0 (6-13) 08/13/21 06:00 BUN 18 mg/dL (6-20) 08/13/21 06:00 Creatinine 0.5 mg/dL (0.4-1.0) 08/13/21 06:00 Estimated GFR (MDRD) 123 (>89) 08/13/21 06:00 Glucose 197 mg/dL (70-100) H 08/13/21 06:00 POC Whole Bld Glucose 177 mg/dL (70 - 100) H 08/13/21 17:24 Estimat Average Glucose 114 mg/dL (70-100) H 08/10/21 04:15 Hemoglobin A1c % 5.6 % (4.27-6.07) 08/10/21 04:15 Lactic Acid 1.0 mmol/L (0.5-2.2) 08/08/21 14:59 Calcium 7.9 mg/dL (8.5-10.3) L 08/13/21 06:00 Phosphorus 2.0 mg/dL (2.5-4.6) L 08/13/21 06:00 Magnesium 1.7 mg/dL (1.7-2.8) 08/13/21 06:00 Total Bilirubin 0.3 mg/dL (0.2-1.0) 08/13/21 06:00 AST 19 IU/L (10-42) 08/13/21 06:00 ALT 15 IU/L (10-60) 08/13/21 06:00 Alkaline Phosphatase 52 IU/L (42-121) 08/13/21 06:00 Troponin I High Sens 4.4 ng/L (2.3-14.8) 08/05/21 23:25 Total Protein 4.1 g/dL (6.7-8.2) L 08/13/21 06:00 Albumin 1.4 g/dL (3.2-5.5) L 08/13/21 06:00 Globulin 2.7 g/dL (2.1-4.2) 08/13/21 06:00 Albumin/Globulin Ratio 0.5 (1.0-2.2) L 08/13/21 06:00 Prealbumin 6 mg/dL (18-45) L 08/13/21 06:00 Triglycerides 102 mg/dL (-149) 08/13/21 06:00 Lipase 18 U/L (22-51) L 08/04/21 11:10 TSH 1.65 uIU/mL (0.34-5.60) 08/06/21 04:50 Urine Color YELLOW 08/05/21 21:30 Urine Clarity CLEAR (CLEAR) 08/05/21 21:30 Urine pH 5.0 PH (5.0-7.5) 08/05/21 21:30 Ur Specific [place] >=1.030 (1.002-1.030) H 08/05/21 21:30 Urine Protein 30 mg/dL (NEGATIVE) H 08/05/21 21:30 Urine Glucose (UA) NEGATIVE mg/dL (NEGATIVE) 08/05/21 21:30 Urine Ketones TRACE mg/dL (NEGATIVE) 08/05/21 21:30 Urine Occult Blood NEGATIVE (NEGATIVE) 08/05/21 21:30 Urine Nitrite NEGATIVE (NEGATIVE) 08/05/21 21:30 Urine Bilirubin NEGATIVE (NEGATIVE) 08/05/21 21:30 Urine Urobilinogen 1 (NORMAL) E.U./dL (NORMAL) 08/05/21 21:30 Ur Leukocyte Esterase NEGATIVE (NEGATIVE) 08/05/21 21:30 Urine RBC None Seen /HPF (0-5) 08/05/21 21:30 Urine WBC 0-3 /HPF (0-5) 08/05/21 21:30 Ur Squamous Epith Cells FEW Squamous (<= Few) 08/05/21 21:30 Amorphous Sediment Few /LPF 08/05/21 21:30 Urine Bacteria Rare /HPF (None Seen) 08/05/21 21:30 Urine Culture Comments NOT INDICATED 08/05/21 21:30 Nasal Adenovirus (PCR) NOT DETECTED 08/04/21 13:20 Nasal B. parapertussis DNA (PCR) NOT DETECTED 08/04/21 13:20 Nasal Coronavir 229E PCR NOT DETECTED 08/04/21 13:20 Nasal Coronavir HKU1 PCR NOT DETECTED 08/04/21 13:20 Nasal Coronavir NL63 PCR NOT DETECTED 08/04/21 13:20 Nasal Coronavir OC43 PCR NOT DETECTED 08/04/21 13:20 Nasal Enterovir/Rhinovir PCR NOT DETECTED 08/04/21 13:20 Nasal Influenza B PCR NOT DETECTED 08/04/21 13:20 Nasal Influenza A PCR NOT DETECTED 08/04/21 13:20 Nasal Parainfluen 1 PCR NOT DETECTED 08/04/21 13:20 Nasal Parainfluen 2 PCR NOT DETECTED 08/04/21 13:20 Nasal Parainfluen 3 PCR NOT DETECTED 08/04/21 13:20 Nasal Parainfluen 4 PCR NOT DETECTED 08/04/21 13:20 Nasal RSV (PCR) NOT DETECTED 08/04/21 13:20 Nasal B.pertussis DNA PCR NOT DETECTED 08/04/21 13:20 Nasal C.pneumoniae (PCR) NOT DETECTED 08/04/21 13:20 Elliot Human Metapneumo PCR NOT DETECTED 08/04/21 13:20 Nasal M.pneumoniae (PCR) NOT DETECTED 08/04/21 13:20 Nasal SARS-CoV-2 (PCR) NOT DETECTED 08/04/21 13:20 Last Dose Date K 08/09/21 09:10 Last Dose Time K 08/09/21 09:10 Vancomycin Trough 15.4 ug/mL (10.0-20.0) 08/09/21 09:10 Sepsis Event Note (H) - Evaluation Current Stage of Sepsis: Severe sepsis Possible source of Sepsis: positive: GI tract/intra-abdominal - Sepsis Criteria Sepsis Criteria: Recorded Heart Rate greater than 90 bpm, WBC count greater than 10% bands, WBC count greater than 12,000 or less than 4000, Metabolic: lactate > 2 mmol/L
--- NOTE | 2021-08-13 20:29 | XRAY Report ---
PROCEDURE: Chest 1 View X-Ray INDICATIONS: SOB, leg edema TECHNIQUE: One view of the chest was acquired. COMPARISON: 08/09/2021 FINDINGS: Surgical changes and devices: Right IJ central line terminates in similar position. Lungs and pleura: Small left pleural effusion is similar. Overlying airspace opacity. Diffusely incre ased interstitial markings in both lungs. Mediastinum: Mediastinal contours appear normal. Heart size is normal. Bones and chest wall: No suspicious bony lesions. Overlying soft tissues appear unremarkable. IMPRESSION: No significant interval change in appearance of the chest. Reviewed by: Morales Nielsen MD on 08/13/2021 8:27 PM PST Approved by: Morales Nielesn MD on 08/13/2021 8:27 PM PST Station ID: [id number]
[2021-08-13] MEDS: SODIUM CHLORIDE FLUSH 0.9% 10 ML SYRINGE IVP PRN (23:37)
[2021-08-14] MEDS: metroNIDAZOLE 500 MG/100 ML 500 MG/100 ML BAG IV SCH ×3 (00:38→16:42)
[2021-08-14] MEDS: ALBUTEROL NEB 2.5 MG/3 ML INH PRN ×4 (02:00→23:47)
[2021-08-14] MEDS: HYDROmorphone 0.5 MG/0.5 ML SYRINGE IVP PRN (03:20)
[2021-08-14] MEDS: METOPROLOL 5 MG/5 ML VIAL IVP SCH ×4 (04:18→23:38)
[2021-08-14] MEDS: METOCLOPRAMIDE 10 MG/2 ML VIAL IVP SCH ×4 (05:32→23:38)
[2021-08-14] MEDS: PANTOPRAZOLE 40 MG TABLET PO SCH (05:32)
[2021-08-14] MEDS: INSULIN REGULAR HUMAN 300 UNIT/3 ML VIAL SUBQ SCH ×4 (05:35→23:46)
[2021-08-14 06:12] LABS: BASOPHILS # (AUTO) 0.1 10^3/uL (0.0-0.1); BASOPHILS % (AUTO) 0.4 %; EOSINOPHILS # (AUTO) 0.1 10^3/uL (0.0-0.7); EOSINOPHILS % (AUTO) 0.3 %; HCT - HEMATOCRIT 35.5 % (37.0-47.0); HGB - HEMOGLOBIN 11.6 g/dL (12.0-16.0); LYMPHOCYTES # (AUTO) 0.9 10^3/uL (1.5-3.5); LYMPHOCYTES % (AUTO) 3.3 %; MEAN CORPUSCULAR HEMOGLOBIN 30.3 pg (27.0-31.0); MEAN CORPUSCULAR HGB CONC 32.7 g/dL (32.0-36.0); MEAN CORPUSCULAR VOLUME 92.7 fL (81.0-99.0); MEAN PLATELET VOLUME 8.4 fL (7.9-10.8); MONOCYTES # (AUTO) 1.6 10^3/uL (0.0-1.0); MONOCYTES % (AUTO) 5.7 %; NEUTROPHILS # (AUTO) 23.9 10^3/uL (1.5-6.6); PLT - PLATELET COUNT 518 10^3/uL (130-450); RED BLOOD COUNT 3.83 10^6/uL (4.20-5.40); RED CELL DISTRIBUTION WIDTH 13.2 % (12.0-15.0); WHITE BLOOD COUNT 28.1 x10^3/uL (4.8-10.8)
[2021-08-14 06:18] LABS: CALCIUM 8.1 mg/dL (8.5-10.3); CREATININE 0.6 mg/dL (0.4-1.0); POTASSIUM 3.3 mmol/L (3.5-5.0)
[2021-08-14 07:22] LABS: PLATELET MORPHOLOGY NORMAL APPEARANCE (NORMAL); RBC MORPHOLOGY (MULTIPLE) 1+ ANISOCYTOSIS (NORMAL)
[2021-08-14 07:23] LABS: DIFFERENTIAL COMMENT MANUAL=AUTO DIFF; PLATELET ESTIMATE, MANUAL INCREASED (>450,000) (NORMAL); WBC MORPHOLOGY (MULTIPLE) NORMAL APPEARANCE (NORMAL)
[2021-08-14] MEDS: MORPHINE 2 MG/ML CARPUJECT IVP PRN ×7 (08:07→23:44)
--- NOTE | 2021-08-14 09:14 | PROVIDER PROGRESS NOTE ---
Subjective - General Admit Date: 08/04/21 Procedure Date: 08/09/21 Post Op Days: 5 Procedure Performed: Laparotomy with Kenneth procedure - Review of Systems Wound/Incisions: positive: Dressing dry and intact, Other (ostomy is viable and warm and improving) Drain Type: Mo Drain Output Description: Serous General: positive: Weakness HEENT: positive: No symptoms Pulmonary: negative: Shortness of breath Cardiovascular: positive: No symptoms Gastrointestinal: positive: Abdominal pain. negative: Nausea, Vomiting Genitourinary: positive: No symptoms Skin: positive: Other (Still frustrated about the swelling) All Other Systems: positive: Reviewed and negative - Other Other Information/Narrative: Na says she feels about the same. She is a little depressed. The swelling in her hands and face is improving but in her legs it is still significant.She would like to get up and around but wants to be sure her belly is protected. She tells me that morphine works much better for her pain than Dilaudid.She is feeling a little bit of rumbling around in her belly. Still has not had any flatus in the colostomy bag. Denies any nausea. She says she feels fine now but did have a couple of waves of nausea yesterday.No vomiting.TPN continues. Objective - Patient Data Reviewed Vital Signs: Yes Vital Signs: Vital Signs x48h Temp Pulse Pulse Pulse Resp BP BP 08/14/21 07:47 37 C 100 08/14/21 05:53 92 18 08/14/21 05:15 92 120/69 08/14/21 05:00 95 112/73 08/14/21 04:45 90 121/89 H 08/14/21 04:30 85 114/69 08/14/21 04:25 82 115/77 08/14/21 04:20 83 105/70 08/14/21 04:18 114/73 08/14/21 04:16 37.2 C 96 16 114/73 08/14/21 02:00 92 18 BP Pulse Ox 08/14/21 07:47 132/78 H 08/14/21 05:53 08/14/21 05:15 08/14/21 05:00 08/14/21 04:45 08/14/21 04:30 08/14/21 04:25 08/14/21 04:20 08/14/21 04:18 08/14/21 04:16 94 08/14/21 02:00 Weight: Weight 08/12/21 08/13/21 08/14/21 23:59 23:59 23:59 Weight (kg) 100 kg 94.5 kg Intake & Output: Intake and Output Totals x24h 08/12/21 08/13/21 08/14/21 23:59 23:59 23:59 Intake Total 2946 3187.166 220 Output Total 1455 3030 270 Balance 1491 157.166 -50 - Lab Results Lab Results: 08/14/21 06:00 08/14/21 06:00 Other Lab Results: Lab Results x24hrs 08/14/21 08/14/21 08/14/21 Range/Units 06:00 06:00 05:34 WBC 28.1 H (4.8-10.8) x10^3/uL RBC 3.83 L (4.20-5.40) 10^6/uL Hgb 11.6 L (12.0-16.0) g/dL Hct 35.5 L (37.0-47.0) % MCV 92.7 (81.0-99.0) fL MCH 30.3 (27.0-31.0) pg MCHC 32.7 (32.0-36.0) g/dL RDW 13.2 (12.0-15.0) % Plt Count 518 H (130-450) 10^3/uL MPV 8.4 (7.9-10.8) fL Neut # (Auto) 23.9 H (1.5-6.6) 10^3/uL Lymph # (Auto) 0.9 L (1.5-3.5) 10^3/uL [place] # (Auto) 1.6 H (0.0-1.0) 10^3/uL Eos # (Auto) 0.1 (0.0-0.7) 10^3/uL Baso # (Auto) 0.1 (0.0-0.1) 10^3/uL Absolute Nucleated RBC 0.00 x10^3/uL Band Neuts % (Manual) Not Reportable Abnorm Lymph % (Manual) Not Reportable Nucleated RBC % 0.0 /100WBC Neutrophils # (Manual) Not Reportable Lymphocytes # (Manual) Not Reportable Monocytes # (Manual) Not Reportable Eosinophils # (Manual) Not Reportable Basophils # (Manual) Not Reportable Differential Comment MANUAL=AUTO DIFF WBC Morphology NORMAL APPEARANCE (NORMAL) Platelet Estimate INCREASED (>450,000) (NORMAL) Platelet Morphology NORMAL APPEARANCE (NORMAL) RBC Morph Micro Appear 1+ ANISOCYTOSIS (NORMAL) Sodium 136 (135-145) mmol/L Potassium 3.3 L (3.5-5.0) mmol/L Chloride 101 (101-111) mmol/L Carbon Dioxide 29 (21-32) mmol/L Anion Gap 6.0 (6-13) BUN 15 (6-20) mg/dL Creatinine 0.6 (0.4-1.0) mg/dL Estimated GFR (MDRD) 100 (>89) Glucose 134 H (70-100) mg/dL POC Whole Bld Glucose 160 H (70 - 100) mg/dL Calcium 8.1 L (8.5-10.3) mg/dL 08/13/21 08/13/21 08/13/21 Range/Units 23:32 17:24 12:15 WBC (4.8-10.8) x10^3/uL RBC (4.20-5.40) 10^6/uL Hgb (12.0-16.0) g/dL Hct (37.0-47.0) % MCV (81.0-99.0) fL MCH (27.0-31.0) pg MCHC (32.0-36.0) g/dL RDW (12.0-15.0) % Plt Count (130-450) 10^3/uL MPV (7.9-10.8) fL Neut # (Auto) (1.5-6.6) 10^3/uL Lymph # (Auto) (1.5-3.5) 10^3/uL [place] # (Auto) (0.0-1.0) 10^3/uL Eos # (Auto) (0.0-0.7) 10^3/uL Baso # (Auto) (0.0-0.1) 10^3/uL Absolute Nucleated RBC x10^3/uL Band Neuts % (Manual) Abnorm Lymph % (Manual) Nucleated RBC % /100WBC Neutrophils # (Manual) Lymphocytes # (Manual) Monocytes # (Manual) Eosinophils # (Manual) Basophils # (Manual) Differential Comment WBC Morphology (NORMAL) Platelet Estimate (NORMAL) Platelet Morphology (NORMAL) RBC Morph Micro Appear (NORMAL) Sodium (135-145) mmol/L Potassium (3.5-5.0) mmol/L Chloride (101-111) mmol/L Carbon Dioxide (21-32) mmol/L Anion Gap (6-13) BUN (6-20) mg/dL Creatinine (0.4-1.0) mg/dL Estimated GFR (MDRD) (>89) Glucose (70-100) mg/dL POC Whole Bld Glucose 184 H 177 H 212 H (70 - 100) mg/dL Calcium (8.5-10.3) mg/dL - Imaging Results Imaging Results Comments: Chest x-ray does not show any new acute process. - Current Medications Current Medications: Current Medications Generic Name Dose Route Start Last Admin Trade Name Freq PRN Reason Stop Dose Admin Acetaminophen 650 mg 08/04/21 14:01 08/12/21 23:39 Acetaminophen 325 Mg Tablet PO 650 mg Q4HR PRN Administration PAIN Albuterol 2.5 mg 08/04/21 17:26 08/14/21 05:52 Albuterol Neb 2.5 Mg/3 Ml INH 2.5 mg RTQ4H PRN Administration Wheezing Aspirin 81 mg 08/05/21 09:00 08/13/21 08:15 Aspirin Chew 81 Mg Tablet PO 81 mg DAILY INGA Administration Enoxaparin Sodium 40 mg 08/05/21 09:00 08/13/21 08:15 Enoxaparin 40 Mg/0.4 Ml Syringe SUBQ 40 mg DAILY INGA Administration Hydromorphone HCl 0.5 mg 08/10/21 20:22 08/14/21 03:20 Hydromorphone 0.5 Mg/0.5 Ml Syringe IVP 0.5 mg Q1H PRN Administration PAIN Cefepime HCl 2 gm/ Sodium 100 mls @ 200 mls/hr 08/07/21 09:00 08/13/21 22:20 Chloride IV Infused BID INGA Infusion Metronidazole 500 mg in 100 mls @ 100 mls/hr 08/07/21 15:00 08/14/21 01:41 Flagyl 500 Mg/100 Ml IV Infused Q8H INGA Infusion Multivitamins 10 ml/ TRACE 2,011 mls @ 70 mls/hr 08/12/21 19:00 08/13/21 18:59 ELEMENTS 1 ml/ Amino Acids/ IV 70 mls/hr Electrolytes TPN/PPN INGA Administration Protocol Sodium Chloride 500 mls @ 20 mls/hr 08/12/21 16:32 08/13/21 18:59 Normal Saline 0.9% IV 20 mls/hr Q24H PRN Administration TKO RATE Insulin Human Regular 1 - 9 unit 08/10/21 18:00 08/14/21 05:35 Insulin Regular Human 300 Unit/3 Ml Vial SUBQ 1 unit Q6HR [facility] Administration Protocol Metoclopramide HCl 5 mg 08/13/21 18:00 08/14/21 05:32 Metoclopramide 10 Mg/2 Ml Vial IVP 5 mg Q6HR INGA Administration Metoprolol Tartrate 5 mg 08/12/21 17:00 08/14/21 04:18 Metoprolol 5 Mg/5 Ml Vial IVP 5 mg Q6H INGA Administration Morphine Sulfate 2 mg 08/06/21 10:21 08/14/21 08:07 Morphine 2 Mg/Ml Carpuject IVP 2 mg Q2HR PRN Administration PAIN Pantoprazole Sodium 40 mg 08/05/21 07:00 08/14/21 05:32 Pantoprazole 40 Mg Tablet PO 40 mg QDAC INGA Administration Sodium Chloride 10 ml 08/04/21 17:00 08/13/21 23:37 Sodium Chloride Flush 0.9% 10 Ml Syringe IVP 10 ml 0100,0900,1700 INGA Administration Sodium Chloride 10 ml 08/04/21 14:01 08/13/21 23:37 Sodium Chloride Flush 0.9% 10 Ml Syringe IVP 10 ml PRN PRN Administration NEEDED PER PROVIDER ORDERS - Physical Exam Wound/Incisions: positive: Other (Her midline wound is dry and clean but the tissue is pale and there is no visible granulation.No foul odor.) General Appearance: positive: No acute distress, Alert Eyes Bilateral: positive: Normal inspection, PERRL, EOMI ENT: positive: ENT inspection nml Neck: positive: Nml inspection Respiratory: positive: Chest non-tender, No respiratory distress Cardiovascular: positive: Regular rate & rhythm Abdomen: positive: Tenderness, Other (Hypoactive bowel tones.) Skin: positive: Color nml Neurologic/Psychiatric: positive: Oriented x3 Comments/Other: Anasarca is noted ABX Reporting Has patient been on IV antibiotics over the past 48 hours?: Yes Impression/Plan - Problem List Problem List: Perforated viscus with intra-abdominal free stool and abscess secondary to profound constipation. 1. Awaiting return of bowel function. No significant evidence of the same. We will continue Reglan and daily lactulose.Expect prolonged ileus. 2. Continue TPN. Blood sugars are still elevated and we have no lipids available to supplement her with medically she is getting some protein.3.3. 3. White blood cell count is up and band count is too numerous to count. This is 36 hours after vancomycin was discontinued. Will restart vancomycin at previous dose. We almost certainly have an Enterococcus component. 4.She can get out of bed and ambulate with assistance. We will have an abdominal binder placed so that she feels a little more secure when out of bed. 5.Would like the white count to be going in the right direction before placing a wound VAC.We will plan to do that probably Thursday.
[2021-08-14] MEDS ORDERED: VANCOMYCIN INJ 1 GM in SODIUM CHLORIDE 0.9% 250 ML IV SCH (10:00)
[2021-08-14] MEDS: SODIUM CHLORIDE FLUSH 0.9% 10 ML SYRINGE IVP PRN ×3 (10:16→19:42)
[2021-08-14] MEDS: CEFEPIME 2 GM in SODIUM CHLORIDE 0.9% MINIBAG 100 ML IV SCH ×2 (10:18→20:21)
[2021-08-14] MEDS: ASPIRIN CHEW 81 MG TABLET PO SCH (10:23)
[2021-08-14] MEDS: LACTULOSE 10 GM /15 ML UDC PO SCH (10:23)
[2021-08-14] MEDS: FUROSEMIDE 20 MG/2 ML VIAL IVP SCH (10:24)
[2021-08-14] MEDS: ENOXAPARIN 40 MG/0.4 ML SYRINGE SUBQ SCH (10:26)
[2021-08-14] MEDS: SODIUM CHLORIDE FLUSH 0.9% 10 ML SYRINGE IVP SCH ×3 (10:27→23:38)
[2021-08-14] MEDS: VANCOMYCIN INJ 1 GM in SODIUM CHLORIDE 0.9% 250 ML IV SCH ×2 (12:23→14:22)
--- NOTE | 2021-08-14 19:10 | PROVIDER PROGRESS NOTE ---
Assessment/Plan - Problem List (1) Perforated abdominal viscus Assessment/Plan: This was the cause of her sepsis. She had a perforated sigmoid colon with purulent ascitic fluid found. Over 1.5 L was drained and cultures are growing E. coli. We had discontinued iv vancomycin yesterday and continued iv cefepime and Flagyl IV. But today her WBC and L shift worsened. Will resume Vanco iv; Dr Zhao suspects she has Enterococcus infection. (2) Status post colostomy Impression: She had a colectomy with diverting colostomy and Funk's pouch. She does have postoperative ileus. She remains n.p.o. except meds and is on PPN. Continue iv antibx Pain control with morphine as needed. Other management as per Gen Surgery. (3) Lower extremity edema Impression: She has ongoing anasarca which is secondary to the IV fluids she received for severe sepsis. She is still very edematous but her Echocardiogram showed no evidence of heart failure and leg duplex doppler was negative for DVT. Yesterday she also complained of mild SOB and Lasix iv has been started. Continue with leg elevation. (4) Hyperglycemia Impression: This continues and is likely secondary to the dextrose in her PPN. We have adjusted the amount of dextrose and her blood glucose is now in the acceptable range. Her A1c was within normal limits. (5) Hypokalemia Impression: This has resolved with replacement. Now that she is on KLasix daily, monitor K and Mg daily. (6) Severe sepsis Impression: Resolved. This was secondary to perforated abdominal viscus. (7) Atrial fibrillation with RVR Impression: Resolved. She had a brief episode of Afib with RVR early on during this hospitalization but she has since been in a sinus rhythm. Her heart rates are stable. We are holding anticoagulation given the recent surgical intervention and the fact that her CHADS score is 0. We are using IV Lopressor, and we will look to resume oral metoprolol once she is taking p.o. - Current Meds Current Meds: Current Medications Generic Name Dose Route Start Last Admin Trade Name Freq PRN Reason Stop Dose Admin Acetaminophen 650 mg 08/04/21 14:01 08/12/21 23:39 Acetaminophen 325 Mg Tablet PO 650 mg Q4HR PRN Administration PAIN Albuterol 2.5 mg 08/04/21 17:08/14/21 17:02 Albuterol Neb 2.5 Mg/3 Ml INH 2.5 mg RTQ4H PRN Administration Wheezing Aspirin 81 mg 08/05/21 09:00 08/14/21 10:23 Aspirin Chew 81 Mg Tablet PO 81 mg DAILY INGA Administration Enoxaparin Sodium 40 mg 08/05/21 09:00 08/14/21 10:26 Enoxaparin 40 Mg/0.4 Ml Syringe SUBQ 40 mg DAILY INGA Administration Furosemide 20 mg 08/14/21 09:00 08/14/21 10:24 Furosemide 20 Mg/2 Ml Vial IVP 20 mg DAILY INGA Administration Hydromorphone HCl 0.5 mg 08/10/21 20:22 08/14/21 03:20 Hydromorphone 0.5 Mg/0.5 Ml Syringe IVP 0.5 mg Q1H PRN Administration PAIN Cefepime HCl 2 gm/ Sodium 100 mls @ 200 mls/hr 08/07/21 09:00 08/14/21 12:01 Chloride IV Infused BID INGA Infusion Metronidazole 500 mg in 100 mls @ 100 mls/hr 08/07/21 15:00 08/14/21 16:42 Flagyl 500 Mg/100 Ml IV 100 mls/hr Q8H INGA Administration Multivitamins 10 ml/ TRACE 2,011 mls @ 70 mls/hr 08/12/21 19:00 08/13/21 18:59 ELEMENTS 1 ml/ Amino Acids/ IV 70 mls/hr Electrolytes TPN/PPN INGA Administration Protocol Sodium Chloride 500 mls @ 20 mls/hr 08/12/21 16:32 08/13/21 18:59 Normal Saline 0.9% IV 20 mls/hr Q24H PRN Administration TKO RATE Insulin Human Regular 1 - 9 unit 08/10/21 18:00 08/14/21 18:59 Insulin Regular Human 300 Unit/3 Ml Vial SUBQ Not Given Q6HR [facility] Protocol Lactulose 10 gm 08/14/21 09:00 08/14/21 10:23 Lactulose 10 Gm /15 Ml Udc PO 10 gm DAILY INGA Administration Metoclopramide HCl 5 mg 08/13/21 18:00 08/14/21 19:04 Metoclopramide 10 Mg/2 Ml Vial IVP 5 mg Q6HR INGA Administration Metoprolol Tartrate 5 mg 08/12/21 17:00 08/14/21 16:43 Metoprolol 5 Mg/5 Ml Vial IVP 5 mg Q6H INGA Administration Morphine Sulfate 2 mg 08/06/21 10:21 08/14/21 16:42 Morphine 2 Mg/Ml Carpuject IVP 2 mg Q2HR PRN Administration PAIN Pantoprazole Sodium 40 mg 08/05/21 07:00 08/14/21 05:32 Pantoprazole 40 Mg Tablet PO 40 mg QDAC INGA Administration Sodium Chloride 10 ml 08/04/21 17:00 08/14/21 16:43 Sodium Chloride Flush 0.9% 10 Ml Syringe IVP 10 ml 0100,0900,1700 INGA Administration Sodium Chloride 10 ml 08/04/21 14:01 08/14/21 11:44 Sodium Chloride Flush 0.9% 10 Ml Syringe IVP 10 ml PRN PRN Administration NEEDED PER PROVIDER ORDERS - Lab Result Fish Bone Diagrams: 08/15/21 05:15 08/15/21 05:15 - Additional Planning My Orders: My Active Orders 08/14/21 09:00 FUROSEMIDE INJ 20mg VIAL [LASIX INJ 20mg VIAL] 20 mg IVP DAILY Objective Vital Signs: Vital Signs - 24 hr 08/13/21 08/13/21 08/13/21 21:00 21:04 23:35 Temperature 37.1 C 37.2 C Heart Rate 92 Heart Rate [ 115 H 102 H Brachial] Heart Rate [ Monitoring electrodes] Heart Rate [ Radial] Respiratory 20 18 16 Rate Blood Pressure Blood Pressure 131/91 H 118/64 [Left Brachial artery] Blood Pressure [Right Brachial artery] O2 Saturation 95 95 08/13/21 08/13/21 08/13/21 23:37 23:45 23:50 Temperature Heart Rate Heart Rate [ 86 88 Brachial] Heart Rate [ Monitoring electrodes] Heart Rate [ Radial] Respiratory Rate Blood Pressure 118/64 Blood Pressure 122/66 115/75 [Left Brachial artery] Blood Pressure [Right Brachial artery] O2 Saturation 08/13/21 08/14/21 08/14/21 23:55 00:15 00:30 Temperature Heart Rate Heart Rate [ 81 89 92 Brachial] Heart Rate [ Monitoring electrodes] Heart Rate [ Radial] Respiratory Rate Blood Pressure Blood Pressure 121/76 111/66 111/69 [Left Brachial artery] Blood Pressure [Right Brachial artery] O2 Saturation 01/26/22 01/26/22 01/26/22 00:42 02:00 04:16 Temperature 37.2 C Heart Rate 92 Heart Rate [ 96 96 Brachial] Heart Rate [ Monitoring electrodes] Heart Rate [ Radial] Respiratory 18 16 Rate Blood Pressure Blood Pressure 110/68 114/73 [Left Brachial artery] Blood Pressure [Right Brachial artery] O2 Saturation 94 08/14/21 08/14/21 08/14/21 04:18 04:20 04:25 Temperature Heart Rate Heart Rate [ 83 82 Brachial] Heart Rate [ Monitoring electrodes] Heart Rate [ Radial] Respiratory Rate Blood Pressure 114/73 Blood Pressure 105/70 115/77 [Left Brachial artery] Blood Pressure [Right Brachial artery] O2 Saturation 08/14/21 08/14/21 08/14/21 04:30 04:45 05:00 Temperature Heart Rate Heart Rate [ 85 90 95 Brachial] Heart Rate [ Monitoring electrodes] Heart Rate [ Radial] Respiratory Rate Blood Pressure Blood Pressure 114/69 121/89 H 112/73 [Left Brachial artery] Blood Pressure [Right Brachial artery] O2 Saturation 08/14/21 08/14/21 08/14/21 05:15 05:53 07:47 Temperature 37 C Heart Rate 92 Heart Rate [ 92 Brachial] Heart Rate [ Monitoring electrodes] Heart Rate [ 100 Radial] Respiratory 18 Rate Blood Pressure Blood Pressure 120/69 [Left Brachial artery] Blood Pressure 132/78 H [Right Brachial artery] O2 Saturation 08/14/21 08/14/21 08/14/21 11:40 11:41 11:45 Temperature Heart Rate Heart Rate [ 99 Brachial] Heart Rate [ 117 H Monitoring electrodes] Heart Rate [ Radial] Respiratory Rate Blood Pressure 122/77 Blood Pressure 122/77 121/74 [Left Brachial artery] Blood Pressure [Right Brachial artery] O2 Saturation 08/14/21 08/14/21 08/14/21 11:51 12:01 14:10 Temperature 36.6 C Heart Rate Heart Rate [ 99 96 Brachial] Heart Rate [ Monitoring electrodes] Heart Rate [ Radial] Respiratory Rate Blood Pressure Blood Pressure 111/74 121/71 [Left Brachial artery] Blood Pressure [Right Brachial artery] O2 Saturation 08/14/21 08/14/21 16:22 17:04 Temperature 36.5 C Heart Rate 88 Heart Rate [ Brachial] Heart Rate [ 92 Monitoring electrodes] Heart Rate [ Radial] Respiratory 18 23 Rate Blood Pressure Blood Pressure 139/78 H [Left Brachial artery] Blood Pressure [Right Brachial artery] O2 Saturation 95 Oxygen O2 Source Room air I&O (Last 24 Hrs): Intake and Output Totals x24h 08/12/21 08/13/21 08/14/21 23:59 23:59 23:59 Intake Total 2946 3187.166 670 Output Total 1455 3030 1190 Balance 1491 157.166 -520 General: Alert, Oriented x3 HEENT: Mucous membr. moist/pink, Other (Sounds nasal when speaks) Neck: Supple Neuro: Alert, Non Focal Cardiovascular: Regular rate, No murmurs Respiratory: Wheezes Abdomen: Soft, Other (Diminished bowel sounds) Extremities: Other (4+ edema to hips, 1+ hand edema) - Results Results: Laboratory Results WBC 28.1 x10^3/uL (4.8-10.8) H 08/14/21 06:00 RBC 3.83 10^6/uL (4.20-5.40) L 08/14/21 06:00 Hgb 11.6 g/dL (12.0-16.0) L 08/14/21 06:00 Hct 35.5 % (37.0-47.0) L 08/14/21 06:00 MCV 92.7 fL (81.0-99.0) 08/14/21 06:00 MCH 30.3 pg (27.0-31.0) 08/14/21 06:00 MCHC 32.7 g/dL (32.0-36.0) 08/14/21 06:00 RDW 13.2 % (12.0-15.0) 08/14/21 06:00 Plt Count 518 10^3/uL (130-450) H 08/14/21 06:00 MPV 8.4 fL (7.9-10.8) 08/14/21 06:00 Neut # (Auto) 23.9 10^3/uL (1.5-6.6) H 08/14/21 06:00 Lymph # (Auto) 0.9 10^3/uL (1.5-3.5) L 08/14/21 06:00 [place] # (Auto) 1.6 10^3/uL (0.0-1.0) H 08/14/21 06:00 Eos # (Auto) 0.1 10^3/uL (0.0-0.7) 08/14/21 06:00 Baso # (Auto) 0.1 10^3/uL (0.0-0.1) 08/14/21 06:00 Absolute Nucleated RBC 0.00 x10^3/uL 08/14/21 06:00 Total Counted 100 08/13/21 06:00 Band Neuts % (Manual) Not Reportable 08/14/21 06:00 Abnorm Lymph % (Manual) Not Reportable 08/14/21 06:00 Metamyelocytes % 1 % (-0) H 08/13/21 06:00 Myelocytes % 1 % (-0) H 08/13/21 06:00 Nucleated RBC % 0.0 /100WBC 08/14/21 06:00 Neutrophils # (Manual) Not Reportable 08/14/21 06:00 Lymphocytes # (Manual) Not Reportable 08/14/21 06:00 Monocytes # (Manual) Not Reportable 08/14/21 06:00 Eosinophils # (Manual) Not Reportable 08/14/21 06:00 Basophils # (Manual) Not Reportable 08/14/21 06:00 Differential Comment MANUAL=AUTO DIFF 08/14/21 06:00 WBC Morphology NORMAL APPEARANCE (NORMAL) 08/14/21 06:00 Platelet Estimate INCREASED (>450,000) (NORMAL) 08/14/21 06:00 Platelet Morphology NORMAL APPEARANCE (NORMAL) 08/14/21 06:00 RBC Morph Micro Appear 1+ ANISOCYTOSIS (NORMAL) 08/14/21 06:00 VBG pH 7.424 (7.31-7.41) H 08/09/21 09:10 VBG pCO2 29.5 mmHg (41-51) L 08/09/21 09:10 VBG pO2 75.4 mmHg (25-47) H 08/09/21 09:10 VBG HCO3 18.9 mmol/L (23-28) L 08/09/21 09:10 VBG Total CO2 19.8 mmol/L (24-29) L 08/09/21 09:10 VBG O2 Saturation 95.7 % (60-80) H 08/09/21 09:10 VBG Base Excess -4.2 mmol/L (-2 - +2) L 08/09/21 09:10 Sodium 136 mmol/L (135-145) 08/14/21 06:00 Potassium 3.3 mmol/L (3.5-5.0) L 08/14/21 06:00 Chloride 101 mmol/L (101-111) 08/14/21 06:00 Carbon Dioxide 29 mmol/L (21-32) 08/14/21 06:00 Anion Gap 6.0 (6-13) 08/14/21 06:00 BUN 15 mg/dL (6-20) 08/14/21 06:00 Creatinine 0.6 mg/dL (0.4-1.0) 08/14/21 06:00 Estimated GFR (MDRD) 100 (>89) 08/14/21 06:00 Glucose 134 mg/dL (70-100) H 08/14/21 06:00 POC Whole Bld Glucose 135 mg/dL (70 - 100) H 08/14/21 17:59 Estimat Average Glucose 114 mg/dL (70-100) H 08/10/21 04:15 Hemoglobin A1c % 5.6 % (4.27-6.07) 08/10/21 04:15 Lactic Acid 1.0 mmol/L (0.5-2.2) 08/08/21 14:59 Calcium 8.1 mg/dL (8.5-10.3) L 08/14/21 06:00 Phosphorus 2.0 mg/dL (2.5-4.6) L 08/13/21 06:00 Magnesium 1.7 mg/dL (1.7-2.8) 08/13/21 06:00 Total Bilirubin 0.3 mg/dL (0.2-1.0) 08/13/21 06:00 AST 19 IU/L (10-42) 08/13/21 06:00 ALT 15 IU/L (10-60) 08/13/21 06:00 Alkaline Phosphatase 52 IU/L (42-121) 08/13/21 06:00 Troponin I High Sens 4.4 ng/L (2.3-14.8) 08/05/21 23:25 Total Protein 4.1 g/dL (6.7-8.2) L 08/13/21 06:00 Albumin 1.4 g/dL (3.2-5.5) L 08/13/21 06:00 Globulin 2.7 g/dL (2.1-4.2) 08/13/21 06:00 Albumin/Globulin Ratio 0.5 (1.0-2.2) L 08/13/21 06:00 Prealbumin 6 mg/dL (18-45) L 08/13/21 06:00 Triglycerides 102 mg/dL (-149) 08/13/21 06:00 Lipase 18 U/L (22-51) L 08/04/21 11:10 TSH 1.65 uIU/mL (0.34-5.60) 08/06/21 04:50 Urine Color YELLOW 08/05/21 21:30 Urine Clarity CLEAR (CLEAR) 08/05/21 21:30 Urine pH 5.0 PH (5.0-7.5) 08/05/21 21:30 Ur Specific [place] >=1.030 (1.002-1.030) H 08/05/21 21:30 Urine Protein 30 mg/dL (NEGATIVE) H 08/05/21 21:30 Urine Glucose (UA) NEGATIVE mg/dL (NEGATIVE) 08/05/21 21:30 Urine Ketones TRACE mg/dL (NEGATIVE) 08/05/21 21:30 Urine Occult Blood NEGATIVE (NEGATIVE) 08/05/21 21:30 Urine Nitrite NEGATIVE (NEGATIVE) 08/05/21 21:30 Urine Bilirubin NEGATIVE (NEGATIVE) 08/05/21 21:30 Urine Urobilinogen 1 (NORMAL) E.U./dL (NORMAL) 08/05/21 21:30 Ur Leukocyte Esterase NEGATIVE (NEGATIVE) 08/05/21 21:30 Urine RBC None Seen /HPF (0-5) 08/05/21 21:30 Urine WBC 0-3 /HPF (0-5) 08/05/21 21:30 Ur Squamous Epith Cells FEW Squamous (<= Few) 08/05/21 21:30 Amorphous Sediment Few /LPF 08/05/21 21:30 Urine Bacteria Rare /HPF (None Seen) 08/05/21 21:30 Urine Culture Comments NOT INDICATED 08/05/21 21:30 Nasal Adenovirus (PCR) NOT DETECTED 08/04/21 13:20 Nasal B. parapertussis DNA (PCR) NOT DETECTED 08/04/21 13:20 Nasal Coronavir 229E PCR NOT DETECTED 08/04/21 13:20 Nasal Coronavir HKU1 PCR NOT DETECTED 08/04/21 13:20 Nasal Coronavir NL63 PCR NOT DETECTED 08/04/21 13:20 Nasal Coronavir OC43 PCR NOT DETECTED 08/04/21 13:20 Nasal Enterovir/Rhinovir PCR NOT DETECTED 08/04/21 13:20 Nasal Influenza B PCR NOT DETECTED 08/04/21 13:20 Nasal Influenza A PCR NOT DETECTED 08/04/21 13:20 Nasal Parainfluen 1 PCR NOT DETECTED 08/04/21 13:20 Nasal Parainfluen 2 PCR NOT DETECTED 08/04/21 13:20 Nasal Parainfluen 3 PCR NOT DETECTED 08/04/21 13:20 Nasal Parainfluen 4 PCR NOT DETECTED 08/04/21 13:20 Nasal RSV (PCR) NOT DETECTED 08/04/21 13:20 Nasal B.pertussis DNA PCR NOT DETECTED 08/04/21 13:20 Nasal C.pneumoniae (PCR) NOT DETECTED 08/04/21 13:20 [place] Human Metapneumo PCR NOT DETECTED 08/04/21 13:20 Nasal M.pneumoniae (PCR) NOT DETECTED 08/04/21 13:20 Nasal SARS-CoV-2 (PCR) NOT DETECTED 08/04/21 13:20 Last Dose Date K 08/09/21 09:10 Last Dose Time K 08/09/21 09:10 Vancomycin Trough 15.4 ug/mL (10.0-20.0) 08/09/21 09:10 Sepsis Event Note (H) - Evaluation Current Stage of Sepsis: Severe sepsis Possible source of Sepsis: positive: GI tract/intra-abdominal - Sepsis Criteria Sepsis Criteria: Recorded Heart Rate greater than 90 bpm, WBC count greater than 10% bands, WBC count greater than 12,000 or less than 4000, Metabolic: lactate > 2 mmol/L
[2021-08-14] MEDS: TRACE ELEMENTS IV SCH ×3 (20:15)
[2021-08-14] MEDS: MULTIVITAMIN IV SCH ×3 (20:15)
[2021-08-14] MEDS: TPN IV SCH ×3 (20:15)
[2021-08-14] MEDS: VANCOMYCIN INJ 1 GM, VANCOMYCIN INJ 250 MG in SODIUM CHLORIDE 0.9% 250 ML IV SCH (21:03)
[2021-08-15] MEDS: metroNIDAZOLE 500 MG/100 ML 500 MG/100 ML BAG IV SCH ×3 (01:11→16:14)
[2021-08-15] MEDS: MORPHINE 2 MG/ML CARPUJECT IVP PRN ×8 (01:42→21:37)
[2021-08-15] MEDS: ALBUTEROL NEB 2.5 MG/3 ML INH PRN ×4 (04:08→16:49)
[2021-08-15] MEDS: PANTOPRAZOLE 40 MG TABLET PO SCH (05:14)
[2021-08-15] MEDS: METOCLOPRAMIDE 10 MG/2 ML VIAL IVP SCH ×3 (05:14→18:35)
[2021-08-15] MEDS: METOPROLOL 5 MG/5 ML VIAL IVP SCH ×4 (05:14→22:00)
[2021-08-15] MEDS: INSULIN REGULAR HUMAN 300 UNIT/3 ML VIAL SUBQ SCH ×3 (05:16→18:09)
[2021-08-15 06:08] LABS: BASOPHILS % (AUTO) 0.5 %; EOSINOPHILS % (AUTO) 0.5 %; HGB - HEMOGLOBIN 10.4 g/dL (12.0-16.0); LYMPHOCYTES % (AUTO) 3.3 %; MEAN CORPUSCULAR HEMOGLOBIN 30.2 pg (27.0-31.0); MEAN CORPUSCULAR HGB CONC 32.5 g/dL (32.0-36.0); MEAN PLATELET VOLUME 8.7 fL (7.9-10.8); MONOCYTES % (AUTO) 5.5 %; NEUTROPHILS % (AUTO) 85.6 %; PLT - PLATELET COUNT 584 10^3/uL (130-450); RED BLOOD COUNT 3.44 10^6/uL (4.20-5.40); RED CELL DISTRIBUTION WIDTH 13.4 % (12.0-15.0); WHITE BLOOD COUNT 22.3 x10^3/uL (4.8-10.8)
[2021-08-15 06:15] LABS: CALCIUM 7.9 mg/dL (8.5-10.3); CREATININE 0.4 mg/dL (0.4-1.0); POTASSIUM 2.8 mmol/L (3.5-5.0)
[2021-08-15 06:16] LABS: ABNORMAL LYMPHS % (MANUAL) 0 %
[2021-08-15 06:33] LABS: BAND NEUTROPHILS % (MANUAL) 13 %; DIFFERENTIAL COMMENT MANUAL DIFFERENTIAL; LYMPHOCYTES # (MANUAL) 2.2 10^3/uL (1.5-3.5); LYMPHOCYTES % (MANUAL) 10 %; MONOCYTES # (MANUAL) 1.8 10^3/uL (0.0-1.0); NEUTROPHILS # (MANUAL) 18.3 10^3/uL (1.5-6.6); PLATELET ESTIMATE, MANUAL INCREASED (>450,000) (NORMAL); RBC MORPHOLOGY (MULTIPLE) NORMAL APPEARANCE (NORMAL)
[2021-08-15] MEDS: POTASSIUM CHLOR 10 MEQ/100 ML 10 MEQ/100 ML BAG IV SCH ×4 (06:41→13:57)
[2021-08-15] MEDS: CEFEPIME 2 GM in SODIUM CHLORIDE 0.9% MINIBAG 100 ML IV SCH ×2 (08:52→21:31)
[2021-08-15] MEDS: ENOXAPARIN 40 MG/0.4 ML SYRINGE SUBQ SCH (08:58)
[2021-08-15] MEDS: LACTULOSE 10 GM /15 ML UDC PO SCH (08:58)
[2021-08-15] MEDS: FUROSEMIDE 20 MG/2 ML VIAL IVP SCH ×2 (08:58→14:40)
[2021-08-15] MEDS: ASPIRIN CHEW 81 MG TABLET PO SCH (08:58)
[2021-08-15] MEDS: SODIUM CHLORIDE FLUSH 0.9% 10 ML SYRINGE IVP SCH ×2 (08:59→16:11)
--- NOTE | 2021-08-15 09:28 | PROVIDER PROGRESS NOTE ---
Subjective - General Admit Date: 08/04/21 Procedure Date: 08/09/21 Post Op Days: 6 Procedure Performed: Laparotomy with Kenneth procedure - Review of Systems Wound/Incisions: positive: Other (Her midline wound is dry and clean but the tissue is pale and there is no visible granulation.No foul odor.) Drain Type: Mo Drain Output Description: Serous General: positive: Weakness HEENT: positive: No symptoms Pulmonary: negative: Shortness of breath Cardiovascular: positive: No symptoms Gastrointestinal: positive: Abdominal pain. negative: Nausea, Vomiting Genitourinary: positive: No symptoms Skin: positive: Other (Still frustrated about the swelling) All Other Systems: positive: Reviewed and negative - Other Other Information/Narrative: Na is a little brighter today. She feels like she may be a little better. She reports she is urinating a lot. She feels like her swelling is a little better each day.She is struggling a little bit emotionally but trying to keep her spirits up.Pain continues to be a little bit of an issue but it is helped mostly by morphine. Unfortunately, she has a wave of nausea with every morphine dose.With all of this, she still prefers it to Dilaudid because she says it helps her breathe better. Objective - Patient Data Reviewed Vital Signs: Yes Vital Signs: Vital Signs x48h Temp Pulse Pulse Pulse Resp BP BP 08/15/21 09:00 36.5 C 99 20 123/69 08/15/21 07:55 80 16 08/15/21 06:10 90 109/57 L 08/15/21 05:55 90 115/65 08/15/21 05:40 88 104/57 L 08/15/21 05:25 87 108/59 L 08/15/21 05:20 96 111/82 H 08/15/21 05:15 100 126/58 L 08/15/21 05:14 118/68 08/15/21 04:08 82 18 08/15/21 04:01 36.4 C L 97 20 116/55 L Pulse Ox 08/15/21 09:00 95 08/15/21 07:55 08/15/21 06:10 08/15/21 05:55 08/15/21 05:40 08/15/21 05:25 08/15/21 05:20 08/15/21 05:15 08/15/21 05:14 08/15/21 04:08 08/15/21 04:01 96 Weight: Weight 08/13/21 08/14/21 08/15/21 23:59 23:59 23:59 Weight (kg) 94.5 kg Intake & Output: Intake and Output Totals x24h 08/13/21 08/14/21 08/15/21 23:59 23:59 23:59 Intake Total 3187.166 3138.667 800 Output Total 3030 1190 565 Balance 770.084 0840.667 235 - Lab Results Lab Results: 08/15/21 05:15 08/15/21 05:15 Other Lab Results: Lab Results x24hrs 08/15/21 08/15/21 08/15/21 Range/Units 05:16 05:15 05:15 WBC (4.8-10.8) x10^3/uL RBC (4.20-5.40) 10^6/uL Hgb (12.0-16.0) g/dL Hct (37.0-47.0) % MCV (81.0-99.0) fL MCH (27.0-31.0) pg MCHC (32.0-36.0) g/dL RDW (12.0-15.0) % Plt Count (130-450) 10^3/uL MPV (7.9-10.8) fL Neut # (Auto) Lymph # (Auto) [place] # (Auto) Eos # (Auto) Baso # (Auto) Absolute Nucleated RBC Total Counted Band Neuts % (Manual) (0 - 10) % Abnorm Lymph % (Manual) % Nucleated RBC % Neutrophils # (Manual) (1.5-6.6) 10^3/uL Lymphocytes # (Manual) (1.5-3.5) 10^3/uL Monocytes # (Manual) (0.0-1.0) 10^3/uL Eosinophils # (Manual) (0-0.7) 10^3/uL Basophils # (Manual) (0-0.1) 10^3/uL Differential Comment Platelet Estimate (NORMAL) RBC Morph Micro Appear (NORMAL) Sodium 135 (135-145) mmol/L Potassium 2.8 L (3.5-5.0) mmol/L Chloride 98 L (101-111) mmol/L Carbon Dioxide 29 (21-32) mmol/L Anion Gap 8.0 (6-13) BUN 16 (6-20) mg/dL Creatinine 0.4 (0.4-1.0) mg/dL Estimated GFR (MDRD) 159 (>89) Glucose 157 H (70-100) mg/dL POC Whole Bld Glucose 139 H (70 - 100) mg/dL Calcium 7.9 L (8.5-10.3) mg/dL Phosphorus 2.0 L (2.5-4.6) mg/dL 08/15/21 08/14/21 08/14/21 Range/Units 05:15 23:36 17:59 WBC 22.3 H (4.8-10.8) x10^3/uL RBC 3.44 L (4.20-5.40) 10^6/uL Hgb 10.4 L (12.0-16.0) g/dL Hct 32.0 L (37.0-47.0) % MCV 93.0 (81.0-99.0) fL MCH 30.2 (27.0-31.0) pg MCHC 32.5 (32.0-36.0) g/dL RDW 13.4 (12.0-15.0) % Plt Count 584 H (130-450) 10^3/uL MPV 8.7 (7.9-10.8) fL Neut # (Auto) Not Reportable Lymph # (Auto) Not Reportable [place] # (Auto) Not Reportable Eos # (Auto) Not Reportable Baso # (Auto) Not Reportable Absolute Nucleated RBC Not Reportable Total Counted 100 Band Neuts % (Manual) 13 H (0 - 10) % Abnorm Lymph % (Manual) 0 % Nucleated RBC % Not Reportable Neutrophils # (Manual) 18.3 H (1.5-6.6) 10^3/uL Lymphocytes # (Manual) 2.2 (1.5-3.5) 10^3/uL Monocytes # (Manual) 1.8 H (0.0-1.0) 10^3/uL Eosinophils # (Manual) 0.0 (0-0.7) 10^3/uL Basophils # (Manual) 0.0 (0-0.1) 10^3/uL Differential Comment MANUAL DIFFERENTIAL Platelet Estimate INCREASED (>450,000) (NORMAL) RBC Morph Micro Appear NORMAL APPEARANCE (NORMAL) Sodium (135-145) mmol/L Potassium (3.5-5.0) mmol/L Chloride (101-111) mmol/L Carbon Dioxide (21-32) mmol/L Anion Gap (6-13) BUN (6-20) mg/dL Creatinine (0.4-1.0) mg/dL Estimated GFR (MDRD) (>89) Glucose (70-100) mg/dL POC Whole Bld Glucose 148 H 135 H (70 - 100) mg/dL Calcium (8.5-10.3) mg/dL Phosphorus (2.5-4.6) mg/dL 08/14/21 Range/Units 11:04 WBC (4.8-10.8) x10^3/uL RBC (4.20-5.40) 10^6/uL Hgb (12.0-16.0) g/dL Hct (37.0-47.0) % MCV (81.0-99.0) fL MCH (27.0-31.0) pg MCHC (32.0-36.0) g/dL RDW (12.0-15.0) % Plt Count (130-450) 10^3/uL MPV (7.9-10.8) fL Neut # (Auto) Lymph # (Auto) [place] # (Auto) Eos # (Auto) Baso # (Auto) Absolute Nucleated RBC Total Counted Band Neuts % (Manual) (0 - 10) % Abnorm Lymph % (Manual) % Nucleated RBC % Neutrophils # (Manual) (1.5-6.6) 10^3/uL Lymphocytes # (Manual) (1.5-3.5) 10^3/uL Monocytes # (Manual) (0.0-1.0) 10^3/uL Eosinophils # (Manual) (0-0.7) 10^3/uL Basophils # (Manual) (0-0.1) 10^3/uL Differential Comment Platelet Estimate (NORMAL) RBC Morph Micro Appear (NORMAL) Sodium (135-145) mmol/L Potassium (3.5-5.0) mmol/L Chloride (101-111) mmol/L Carbon Dioxide (21-32) mmol/L Anion Gap (6-13) BUN (6-20) mg/dL Creatinine (0.4-1.0) mg/dL Estimated GFR (MDRD) (>89) Glucose (70-100) mg/dL POC Whole Bld Glucose 171 H (70 - 100) mg/dL Calcium (8.5-10.3) mg/dL Phosphorus (2.5-4.6) mg/dL - Current Medications Current Medications: Current Medications Generic Name Dose Route Start Last Admin Trade Name Freq PRN Reason Stop Dose Admin Acetaminophen 650 mg 08/04/21 14:01 08/12/21 23:39 Acetaminophen 325 Mg Tablet PO 650 mg Q4HR PRN Administration PAIN Albuterol 2.5 mg 08/04/21 17:26 08/15/21 07:55 Albuterol Neb 2.5 Mg/3 Ml INH 2.5 mg RTQ4H PRN Administration Wheezing Aspirin 81 mg 08/05/21 09:00 08/15/21 08:58 Aspirin Chew 81 Mg Tablet PO 81 mg DAILY INGA Administration Enoxaparin Sodium 40 mg 08/05/21 09:00 08/15/21 08:58 Enoxaparin 40 Mg/0.4 Ml Syringe SUBQ 40 mg DAILY INGA Administration Furosemide 20 mg 08/14/21 09:00 08/15/21 08:58 Furosemide 20 Mg/2 Ml Vial IVP 20 mg DAILY INGA Administration Hydromorphone HCl 0.5 mg 08/10/21 20:22 08/14/21 03:20 Hydromorphone 0.5 Mg/0.5 Ml Syringe IVP 0.5 mg Q1H PRN Administration PAIN Cefepime HCl 2 gm/ Sodium 100 mls @ 200 mls/hr 08/07/21 09:00 08/15/21 08:52 Chloride IV 200 mls/hr BID INGA Administration Metronidazole 500 mg in 100 mls @ 100 mls/hr 08/07/21 15:00 08/15/21 02:15 Flagyl 500 Mg/100 Ml IV Infused Q8H INGA Infusion Multivitamins 10 ml/ TRACE 2,011 mls @ 70 mls/hr 08/12/21 19:00 08/14/21 20:15 ELEMENTS 1 ml/ Amino Acids/ IV 70 mls/hr Electrolytes TPN/PPN INGA Administration Protocol Sodium Chloride 500 mls @ 20 mls/hr 08/12/21 16:32 08/15/21 00:30 Normal Saline 0.9% IV Infused Q24H PRN Infusion TKO RATE Vancomycin HCl 1 gm/ 250 mls @ 167 mls/hr 08/14/21 22:00 08/14/21 23:14 Vancomycin HCl 250 mg/ Sodium IV Infused Chloride Q12H INGA Infusion Potassium Chloride 10 meq in 100 mls @ 100 mls/hr 08/15/21 07:00 08/15/21 09:02 Potassium Chloride IV 08/15/21 10:59 Infused Q1H INGA Infusion Insulin Human Regular 1 - 9 unit 08/10/21 18:00 08/15/21 05:16 Insulin Regular Human 300 Unit/3 Ml Vial SUBQ Not Given Q6HR [facility] Protocol Lactulose 10 gm 08/14/21 09:00 08/15/21 08:58 Lactulose 10 Gm /15 Ml Udc PO Not Given DAILY INGA Metoclopramide HCl 5 mg 08/13/21 18:00 08/15/21 05:14 Metoclopramide 10 Mg/2 Ml Vial IVP 5 mg Q6HR INGA Administration Metoprolol Tartrate 5 mg 08/12/21 17:00 08/15/21 05:14 Metoprolol 5 Mg/5 Ml Vial IVP 5 mg Q6H INGA Administration Morphine Sulfate 2 mg 08/06/21 10:21 08/15/21 09:07 Morphine 2 Mg/Ml Carpuject IVP 2 mg Q2HR PRN Administration PAIN Pantoprazole Sodium 40 mg 08/05/21 07:00 08/15/21 05:14 Pantoprazole 40 Mg Tablet PO 40 mg QDAC INGA Administration Sodium Chloride 10 ml 08/04/21 17:00 08/15/21 08:59 Sodium Chloride Flush 0.9% 10 Ml Syringe IVP 10 ml 0100,0900,1700 INGA Administration Sodium Chloride 10 ml 08/04/21 14:01 08/14/21 19:42 Sodium Chloride Flush 0.9% 10 Ml Syringe IVP 10 ml PRN PRN Administration NEEDED PER PROVIDER ORDERS - Physical Exam Wound/Incisions: positive: Other (A minimal amount of purulent slough at the base of the wound. No foul odor. No visible granulation tissue.) General Appearance: positive: Alert, Mild distress Eyes Bilateral: positive: Normal inspection, PERRL ENT: positive: ENT inspection nml Neck: positive: Nml inspection Respiratory: positive: Chest non-tender, No respiratory distress Cardiovascular: positive: Regular rate & rhythm Abdomen: positive: Tenderness, Other (Few bowel sounds. Ostomy less edematous and generally looking better.Minimal mucoid output.) Skin: positive: Color nml Extremities: positive: Other (3+ edema bilaterally) ABX Reporting Has patient been on IV antibiotics over the past 48 hours?: Yes Impression/Plan - Problem List Problem List: Perforated viscus secondary to profound constipation 1. White count going in the right direction again with a decrease in bands after represcribing vancomycin. We need to keep our current antibiotic regimen for a full 10 days with no changes. 2.Wound is making very slow and limited progress. Attempted to place a wound VAC today and were not able to get a seal. Have consulted the wound care nurse to come and see what she can do about fitting the ostomy and wound VAC together. 3.No evidence of bowel function. Will need to continue TPN. Agree with adding additional potassium to the formula. 4. Asthma-stable with nebulizer treatments. 5.Once the VAC is in place, it should be easier for her to begin to ambulate. I would like her to get out of bed at least three times a day and use the bedside commode.
[2021-08-15] MEDS: VANCOMYCIN INJ 1 GM, VANCOMYCIN INJ 250 MG in SODIUM CHLORIDE 0.9% 250 ML IV SCH ×2 (10:47→22:06)
--- NOTE | 2021-08-15 14:20 | PROVIDER PROGRESS NOTE ---
Assessment/Plan - Problem List (1) Perforated abdominal viscus Assessment/Plan: This was the cause of her sepsis. She had a perforated sigmoid colon with purulent ascitic fluid found. Over 1.5 L was drained and cultures are growing E. coli. We had resumed her iv vancomycin yesterday, when WBC worsened yesterday and continued iv cefepime and Flagyl IV. But today her WBC and L shift improved slightly. Dr Zhao suspects she has Enterococcus infection. Continue iv Vanco, Cefepime and Flagyl. (2) Status post colostomy Impression: She had a colectomy with diverting colostomy and Funk's pouch. She has a postoperative ileus. She remains n.p.o. except meds and is on PPN. Continue iv antibx, pain meds prn. Today, Dr Zhao placed a wound vac. (3) Anasarca Impression: She has ongoing anasarca which is secondary to the IV fluids she received for severe sepsis. She is 10L pos since admission. Her fluid status has remained (+) daily, even after iv Lasix was started 2 days ago. Her Echocardiogram showed no evidence of heart failure and leg duplex doppler was negative for DVT. Continue Lasix iv, will increase the dose from daily to biddiuretic, starting today. Will decrease her iv tpn from 70 cc/hr to 60 cc/hr. Continue with leg elevation. Will schedule her nebs plus prn q4h. Follow daily weight and I's and O's, and daily BMP & Mg. (4) Hyperglycemia Impression: This continues and is likely secondary to the dextrose in her PPN. We have adjusted the amount of dextrose and her blood glucose is now in the acceptable range. Her A1c was within normal limits. (5) Hypokalemia Impression: This has resolved with replacement. Now that she is on Lasix daily, monitor K and Mg daily. (6) Severe sepsis Impression: Resolved. This was secondary to perforated abdominal viscus. (7) Atrial fibrillation with RVR Impression: Resolved. She had a brief episode of Afib with RVR early on during this hospitalization but she has since been in a sinus rhythm. Her heart rates are stable. We are holding anticoagulation given the recent surgical intervention and the fact that her CHADS score is 0. We are using IV Lopressor, and we will look to resume oral metoprolol once she is taking p.o. - Current Meds Current Meds: Current Medications Generic Name Dose Route Start Last Admin Trade Name Freq PRN Reason Stop Dose Admin Acetaminophen 650 mg 08/04/21 14:01 08/12/21 23:39 Acetaminophen 325 Mg Tablet PO 650 mg Q4HR PRN Administration PAIN Albuterol 2.5 mg 08/04/21 17:26 08/15/21 12:47 Albuterol Neb 2.5 Mg/3 Ml INH 2.5 mg RTQ4H PRN Administration Wheezing Aspirin 81 mg 08/05/21 09:00 08/15/21 08:58 Aspirin Chew 81 Mg Tablet PO 81 mg DAILY INGA Administration Enoxaparin Sodium 40 mg 08/05/21 09:00 08/15/21 08:58 Enoxaparin 40 Mg/0.4 Ml Syringe SUBQ 40 mg DAILY INGA Administration Furosemide 20 mg 08/14/21 09:00 08/15/21 08:58 Furosemide 20 Mg/2 Ml Vial IVP 20 mg DAILY INGA Administration Hydromorphone HCl 0.5 mg 08/10/21 20:22 08/14/21 03:20 Hydromorphone 0.5 Mg/0.5 Ml Syringe IVP 0.5 mg Q1H PRN Administration PAIN Cefepime HCl 2 gm/ Sodium 100 mls @ 200 mls/hr 08/07/21 09:00 08/15/21 10:03 Chloride IV Infused BID INGA Infusion Metronidazole 500 mg in 100 mls @ 100 mls/hr 08/07/21 15:00 08/15/21 10:48 Flagyl 500 Mg/100 Ml IV Infused Q8H INGA Infusion Multivitamins 10 ml/ TRACE 2,011 mls @ 70 mls/hr 08/12/21 19:00 08/14/21 20:15 ELEMENTS 1 ml/ Amino Acids/ IV 08/15/21 18:59 70 mls/hr Electrolytes TPN/PPN INGA Administration Protocol Sodium Chloride 500 mls @ 20 mls/hr 08/12/21 16:32 08/15/21 00:30 Normal Saline 0.9% IV Infused Q24H PRN Infusion TKO RATE Vancomycin HCl 1 gm/ 250 mls @ 167 mls/hr 08/14/21 22:00 08/15/21 12:27 Vancomycin HCl 250 mg/ Sodium IV Infused Chloride Q12H INGA Infusion Insulin Human Regular 1 - 9 unit 08/10/21 18:00 08/15/21 12:08 Insulin Regular Human 300 Unit/3 Ml Vial SUBQ 1 unit Q6HR INGA Administration Protocol Lactulose 10 gm 08/14/21 09:00 08/15/21 08:58 Lactulose 10 Gm /15 Ml Udc PO Not Given DAILY INGA Metoclopramide HCl 5 mg 08/13/21 18:00 08/15/21 12:12 Metoclopramide 10 Mg/2 Ml Vial IVP 5 mg Q6HR INGA Administration Metoprolol Tartrate 5 mg 08/12/21 17:00 08/15/21 12:17 Metoprolol 5 Mg/5 Ml Vial IVP 5 mg Q6H INGA Administration Morphine Sulfate 2 mg 08/06/21 10:21 08/15/21 14:02 Morphine 2 Mg/Ml Carpuject IVP 2 mg Q2HR PRN Administration PAIN Pantoprazole Sodium 40 mg 08/05/21 07:00 08/15/21 05:14 Pantoprazole 40 Mg Tablet PO 40 mg QDAC INGA Administration Sodium Chloride 10 ml 08/04/21 17:00 08/15/21 08:59 Sodium Chloride Flush 0.9% 10 Ml Syringe IVP 10 ml 0100,0900,1700 INGA Administration Sodium Chloride 10 ml 08/04/21 14:01 08/14/21 19:42 Sodium Chloride Flush 0.9% 10 Ml Syringe IVP 10 ml PRN PRN Administration NEEDED PER PROVIDER ORDERS - Lab Result Fish Bone Diagrams: 08/15/21 05:15 08/15/21 05:15 Subjective - Subjective Patient Reports: Feeling Better (She gets benefit from her nebulizer treatments, she said.) Objective Vital Signs: Vital Signs - 24 hr 08/14/21 08/14/21 08/14/21 16:22 17:04 20:39 Temperature 36.5 C 36.6 C Heart Rate 88 Heart Rate [ 97 Brachial] Heart Rate [ 92 Monitoring electrodes] Heart Rate [ Radial] Respiratory 18 23 16 Rate Blood Pressure Blood Pressure 139/78 H [Left Brachial artery] Blood Pressure 120/65 [Right Brachial artery] O2 Saturation 95 95 08/14/21 08/14/21 08/14/21 23:38 23:40 23:54 Temperature 36.2 C L Heart Rate 86 Heart Rate [ 99 Brachial] Heart Rate [ Monitoring electrodes] Heart Rate [ Radial] Respiratory 18 16 Rate Blood Pressure 123/74 Blood Pressure [Left Brachial artery] Blood Pressure 123/74 [Right Brachial artery] O2 Saturation 100 08/15/21 08/15/21 08/15/21 00:00 00:05 00:10 Temperature Heart Rate Heart Rate [ 90 91 91 Brachial] Heart Rate [ Monitoring electrodes] Heart Rate [ Radial] Respiratory Rate Blood Pressure Blood Pressure [Left Brachial artery] Blood Pressure 114/69 116/64 107/64 [Right Brachial artery] O2 Saturation 08/15/21 08/15/21 08/15/21 00:25 00:40 00:55 Temperature Heart Rate Heart Rate [ 93 93 93 Brachial] Heart Rate [ Monitoring electrodes] Heart Rate [ Radial] Respiratory Rate Blood Pressure Blood Pressure [Left Brachial artery] Blood Pressure 112/63 110/60 119/61 [Right Brachial artery] O2 Saturation 08/15/21 08/15/21 08/15/21 04:01 04:08 05:14 Temperature 36.4 C L Heart Rate 82 Heart Rate [ Brachial] Heart Rate [ Monitoring electrodes] Heart Rate [ 97 Radial] Respiratory 20 18 Rate Blood Pressure 118/68 Blood Pressure [Left Brachial artery] Blood Pressure 116/55 L [Right Brachial artery] O2 Saturation 96 08/15/21 08/15/21 08/15/21 05:15 05:20 05:25 Temperature Heart Rate Heart Rate [ 100 96 87 Brachial] Heart Rate [ Monitoring electrodes] Heart Rate [ Radial] Respiratory Rate Blood Pressure Blood Pressure [Left Brachial artery] Blood Pressure 126/58 L 111/82 H 108/59 L [Right Brachial artery] O2 Saturation 08/15/21 08/15/21 08/15/21 05:40 05:55 06:10 Temperature Heart Rate Heart Rate [ 88 90 90 Brachial] Heart Rate [ Monitoring electrodes] Heart Rate [ Radial] Respiratory Rate Blood Pressure Blood Pressure [Left Brachial artery] Blood Pressure 104/57 L 115/65 109/57 L [Right Brachial artery] O2 Saturation 08/15/21 08/15/21 08/15/21 07:55 09:00 12:17 Temperature 36.5 C Heart Rate 80 Heart Rate [ 99 Brachial] Heart Rate [ Monitoring electrodes] Heart Rate [ Radial] Respiratory 16 20 Rate Blood Pressure 124/70 Blood Pressure [Left Brachial artery] Blood Pressure 123/69 [Right Brachial artery] O2 Saturation 95 08/15/21 08/15/21 08/15/21 12:25 12:30 12:35 Temperature Heart Rate Heart Rate [ 88 90 93 Brachial] Heart Rate [ Monitoring electrodes] Heart Rate [ Radial] Respiratory Rate Blood Pressure Blood Pressure [Left Brachial artery] Blood Pressure 115/69 115/71 148/78 H [Right Brachial artery] O2 Saturation 08/15/21 12:47 Temperature Heart Rate 80 Heart Rate [ Brachial] Heart Rate [ Monitoring electrodes] Heart Rate [ Radial] Respiratory 20 Rate Blood Pressure Blood Pressure [Left Brachial artery] Blood Pressure [Right Brachial artery] O2 Saturation Oxygen O2 Source Room air I&O (Last 24 Hrs): Intake and Output Totals x24h 08/13/21 08/14/21 08/15/21 23:59 23:59 23:59 Intake Total 3187.166 3138.667 1350 Output Total 3030 1190 565 Balance 566.602 0505.667 785 General: Alert, Oriented x3 HEENT: Mucous membr. moist/pink Neck: Supple Neuro: Alert, Non Focal Cardiovascular: Regular rate, No murmurs Respiratory: Wheezes Abdomen: Soft Extremities: Other (4+ edema to hips, 2+ edema of hands) - Results Results: Laboratory Results WBC 22.3 x10^3/uL (4.8-10.8) H 08/15/21 05:15 RBC 3.44 10^6/uL (4.20-5.40) L 08/15/21 05:15 Hgb 10.4 g/dL (12.0-16.0) L 08/15/21 05:15 Hct 32.0 % (37.0-47.0) L 08/15/21 05:15 MCV 93.0 fL (81.0-99.0) 08/15/21 05:15 MCH 30.2 pg (27.0-31.0) 08/15/21 05:15 MCHC 32.5 g/dL (32.0-36.0) 08/15/21 05:15 RDW 13.4 % (12.0-15.0) 08/15/21 05:15 Plt Count 584 10^3/uL (130-450) H 08/15/21 05:15 MPV 8.7 fL (7.9-10.8) 08/15/21 05:15 Neut # (Auto) Not Reportable 08/15/21 05:15 Lymph # (Auto) Not Reportable 08/15/21 05:15 [place] # (Auto) Not Reportable 08/15/21 05:15 Eos # (Auto) Not Reportable 08/15/21 05:15 Baso # (Auto) Not Reportable 08/15/21 05:15 Absolute Nucleated RBC Not Reportable 08/15/21 05:15 Total Counted 100 08/15/21 05:15 Band Neuts % (Manual) 13 % (0-10) H 08/15/21 05:15 Abnorm Lymph % (Manual) 0 % 08/15/21 05:15 Metamyelocytes % 1 % (-0) H 08/13/21 06:00 Myelocytes % 1 % (-0) H 08/13/21 06:00 Nucleated RBC % Not Reportable 08/15/21 05:15 Neutrophils # (Manual) 18.3 10^3/uL (1.5-6.6) H 08/15/21 05:15 Lymphocytes # (Manual) 2.2 10^3/uL (1.5-3.5) 08/15/21 05:15 Monocytes # (Manual) 1.8 10^3/uL (0.0-1.0) H 08/15/21 05:15 Eosinophils # (Manual) 0.0 10^3/uL (0-0.7) 08/15/21 05:15 Basophils # (Manual) 0.0 10^3/uL (0-0.1) 08/15/21 05:15 Differential Comment MANUAL DIFFERENTIAL 08/15/21 05:15 WBC Morphology NORMAL APPEARANCE (NORMAL) 08/14/21 06:00 Platelet Estimate INCREASED (>450,000) (NORMAL) 08/15/21 05:15 Platelet Morphology NORMAL APPEARANCE (NORMAL) 08/14/21 06:00 RBC Morph Micro Appear NORMAL APPEARANCE (NORMAL) 08/15/21 05:15 VBG pH 7.424 (7.31-7.41) H 08/09/21 09:10 VBG pCO2 29.5 mmHg (41-51) L 08/09/21 09:10 VBG pO2 75.4 mmHg (25-47) H 08/09/21 09:10 VBG HCO3 18.9 mmol/L (23-28) L 08/09/21 09:10 VBG Total CO2 19.8 mmol/L (24-29) L 08/09/21 09:10 VBG O2 Saturation 95.7 % (60-80) H 08/09/21 09:10 VBG Base Excess -4.2 mmol/L (-2 - +2) L 08/09/21 09:10 Sodium 135 mmol/L (135-145) 08/15/21 05:15 Potassium 2.8 mmol/L (3.5-5.0) L 08/15/21 05:15 Chloride 98 mmol/L (101-111) L 08/15/21 05:15 Carbon Dioxide 29 mmol/L (21-32) 08/15/21 05:15 Anion Gap 8.0 (6-13) 08/15/21 05:15 BUN 16 mg/dL (6-20) 08/15/21 05:15 Creatinine 0.4 mg/dL (0.4-1.0) 08/15/21 05:15 Estimated GFR (MDRD) 159 (>89) 08/15/21 05:15 Glucose 157 mg/dL (70-100) H 08/15/21 05:15 POC Whole Bld Glucose 167 mg/dL (70 - 100) H 08/15/21 12:04 Estimat Average Glucose 114 mg/dL (70-100) H 08/10/21 04:15 Hemoglobin A1c % 5.6 % (4.27-6.07) 08/10/21 04:15 Lactic Acid 1.0 mmol/L (0.5-2.2) 08/08/21 14:59 Calcium 7.9 mg/dL (8.5-10.3) L 08/15/21 05:15 Phosphorus 2.0 mg/dL (2.5-4.6) L 08/15/21 05:15 Magnesium 1.7 mg/dL (1.7-2.8) 08/13/21 06:00 Total Bilirubin 0.3 mg/dL (0.2-1.0) 08/13/21 06:00 AST 19 IU/L (10-42) 08/13/21 06:00 ALT 15 IU/L (10-60) 08/13/21 06:00 Alkaline Phosphatase 52 IU/L (42-121) 08/13/21 06:00 Troponin I High Sens 4.4 ng/L (2.3-14.8) 08/05/21 23:25 Total Protein 4.1 g/dL (6.7-8.2) L 08/13/21 06:00 Albumin 1.4 g/dL (3.2-5.5) L 08/13/21 06:00 Globulin 2.7 g/dL (2.1-4.2) 08/13/21 06:00 Albumin/Globulin Ratio 0.5 (1.0-2.2) L 08/13/21 06:00 Prealbumin 6 mg/dL (18-45) L 08/13/21 06:00 Triglycerides 102 mg/dL (-149) 08/13/21 06:00 Lipase 18 U/L (22-51) L 08/04/21 11:10 TSH 1.65 uIU/mL (0.34-5.60) 08/06/21 04:50 Urine Color YELLOW 08/05/21 21:30 Urine Clarity CLEAR (CLEAR) 08/05/21 21:30 Urine pH 5.0 PH (5.0-7.5) 08/05/21 21:30 Ur Specific [place] >=1.030 (1.002-1.030) H 08/05/21 21:30 Urine Protein 30 mg/dL (NEGATIVE) H 08/05/21 21:30 Urine Glucose (UA) NEGATIVE mg/dL (NEGATIVE) 08/05/21 21:30 Urine Ketones TRACE mg/dL (NEGATIVE) 08/05/21 21:30 Urine Occult Blood NEGATIVE (NEGATIVE) 08/05/21 21:30 Urine Nitrite NEGATIVE (NEGATIVE) 08/05/21 21:30 Urine Bilirubin NEGATIVE (NEGATIVE) 08/05/21 21:30 Urine Urobilinogen 1 (NORMAL) E.U./dL (NORMAL) 08/05/21 21:30 Ur Leukocyte Esterase NEGATIVE (NEGATIVE) 08/05/21 21:30 Urine RBC None Seen /HPF (0-5) 08/05/21 21:30 Urine WBC 0-3 /HPF (0-5) 08/05/21 21:30 Ur Squamous Epith Cells FEW Squamous (<= Few) 08/05/21 21:30 Amorphous Sediment Few /LPF 08/05/21 21:30 Urine Bacteria Rare /HPF (None Seen) 08/05/21 21:30 Urine Culture Comments NOT INDICATED 08/05/21 21:30 Nasal Adenovirus (PCR) NOT DETECTED 08/04/21 13:20 Nasal B. parapertussis DNA (PCR) NOT DETECTED 08/04/21 13:20 Nasal Coronavir 229E PCR NOT DETECTED 08/04/21 13:20 Nasal Coronavir HKU1 PCR NOT DETECTED 08/04/21 13:20 Nasal Coronavir NL63 PCR NOT DETECTED 08/04/21 13:20 Nasal Coronavir OC43 PCR NOT DETECTED 08/04/21 13:20 Nasal Enterovir/Rhinovir PCR NOT DETECTED 08/04/21 13:20 Nasal Influenza B PCR NOT DETECTED 08/04/21 13:20 Nasal Influenza A PCR NOT DETECTED 08/04/21 13:20 Nasal Parainfluen 1 PCR NOT DETECTED 08/04/21 13:20 Nasal Parainfluen 2 PCR NOT DETECTED 08/04/21 13:20 Nasal Parainfluen 3 PCR NOT DETECTED 08/04/21 13:20 Nasal Parainfluen 4 PCR NOT DETECTED 08/04/21 13:20 Nasal RSV (PCR) NOT DETECTED 08/04/21 13:20 Nasal B.pertussis DNA PCR NOT DETECTED 08/04/21 13:20 Nasal C.pneumoniae (PCR) NOT DETECTED 08/04/21 13:20 Elliot Human Metapneumo PCR NOT DETECTED 08/04/21 13:20 Nasal M.pneumoniae (PCR) NOT DETECTED 08/04/21 13:20 Nasal SARS-CoV-2 (PCR) NOT DETECTED 08/04/21 13:20 Last Dose Date K 08/09/21 09:10 Last Dose Time K 08/09/21 09:10 Vancomycin Trough 15.4 ug/mL (10.0-20.0) 08/09/21 09:10 Sepsis Event Note (H) - Evaluation Current Stage of Sepsis: Severe sepsis Possible source of Sepsis: positive: GI tract/intra-abdominal - Sepsis Criteria Sepsis Criteria: Recorded Heart Rate greater than 90 bpm, WBC count greater than 10% bands, WBC count greater than 12,000 or less than 4000, Metabolic: lactate > 2 mmol/L
[2021-08-15] MEDS: TRACE ELEMENTS IV SCH ×5 (18:36)
[2021-08-15] MEDS: TPN IV SCH ×5 (18:36)
[2021-08-15] MEDS: [UNRECOGNIZED DRUG - OTHER] IV SCH ×5 (18:36)
[2021-08-15] MEDS: MULTIVITAMIN IV SCH ×5 (18:36)
[2021-08-15] MEDS ORDERED: [UNRECOGNIZED DRUG - OTHER] IV SCH ×4 (19:00)
[2021-08-15] MEDS ORDERED: TPN IV SCH ×4 (19:00)
[2021-08-15] MEDS ORDERED: TRACE ELEMENTS IV SCH ×4 (19:00)
[2021-08-15] MEDS ORDERED: MULTIVITAMIN IV SCH ×4 (19:00)
[2021-08-15] MEDS: ALBUTEROL NEB 2.5 MG/3 ML INH SCH (21:30)
[2021-08-15] MEDS: SODIUM CHLORIDE FLUSH 0.9% 10 ML SYRINGE IVP PRN (22:01)
[2021-08-16] MEDS: INSULIN REGULAR HUMAN 300 UNIT/3 ML VIAL SUBQ SCH ×4 (00:23→18:06)
[2021-08-16] MEDS: METOCLOPRAMIDE 10 MG/2 ML VIAL IVP SCH ×4 (00:24→17:52)
[2021-08-16] MEDS: metroNIDAZOLE 500 MG/100 ML 500 MG/100 ML BAG IV SCH ×3 (00:24→17:47)
[2021-08-16] MEDS: SODIUM CHLORIDE FLUSH 0.9% 10 ML SYRINGE IVP SCH ×3 (00:25→17:50)
[2021-08-16] MEDS: MORPHINE 2 MG/ML CARPUJECT IVP PRN ×6 (00:30→22:05)
[2021-08-16] MEDS: ALBUTEROL NEB 2.5 MG/3 ML INH PRN ×2 (02:13→16:50)
[2021-08-16] MEDS: SODIUM CHLORIDE FLUSH 0.9% 10 ML SYRINGE IVP PRN (06:12)
[2021-08-16] MEDS: METOPROLOL 5 MG/5 ML VIAL IVP SCH ×4 (06:18→23:57)
[2021-08-16] MEDS: PANTOPRAZOLE 40 MG TABLET PO SCH (06:22)
[2021-08-16] MEDS: FUROSEMIDE 20 MG/2 ML VIAL IVP SCH ×2 (06:22→14:24)
[2021-08-16 06:25] LABS: BASOPHILS % (AUTO) 0.6 %; EOSINOPHILS % (AUTO) 0.4 %; HGB - HEMOGLOBIN 10.1 g/dL (12.0-16.0); LYMPHOCYTES % (AUTO) 3.9 %; MEAN CORPUSCULAR HGB CONC 32.6 g/dL (32.0-36.0); MEAN PLATELET VOLUME 8.5 fL (7.9-10.8); MONOCYTES % (AUTO) 5.3 %; NEUTROPHILS % (AUTO) 85.9 %; PLT - PLATELET COUNT 625 10^3/uL (130-450); RED BLOOD COUNT 3.37 10^6/uL (4.20-5.40); RED CELL DISTRIBUTION WIDTH 13.5 % (12.0-15.0); WHITE BLOOD COUNT 21.5 x10^3/uL (4.8-10.8)
[2021-08-16 06:31] LABS: ABNORMAL LYMPHS % (MANUAL) 0 %
[2021-08-16 06:40] LABS: ALBUMIN 1.5 g/dL (3.2-5.5); ALBUMIN/GLOBULIN RATIO 0.5 (1.0-2.2); BILIRUBIN,TOTAL 0.3 mg/dL (0.2-1.0); CALCIUM 8.1 mg/dL (8.5-10.3); CREATININE 0.4 mg/dL (0.4-1.0); MAGNESIUM 1.8 mg/dL (1.7-2.8); PHOSPHORUS 2.4 mg/dL (2.5-4.6); POTASSIUM 3.1 mmol/L (3.5-5.0); TOTAL PROTEIN 4.7 g/dL (6.7-8.2)
[2021-08-16] MEDS: ALBUTEROL NEB 2.5 MG/3 ML INH SCH ×3 (07:10→23:28)
[2021-08-16 07:43] LABS: BAND NEUTROPHILS % (MANUAL) 5 %; EOSINOPHILS # (MANUAL) 0.6 10^3/uL (0-0.7); LYMPHOCYTES # (MANUAL) 1.1 10^3/uL (1.5-3.5); LYMPHOCYTES % (MANUAL) 5 %; METAMYELOCYTES % (MANUAL) 1 %; MONOCYTES # (MANUAL) 0.9 10^3/uL (0.0-1.0); MYELOCYTES % (MANUAL) 1 %; NEUTROPHILS # (MANUAL) 18.5 10^3/uL (1.5-6.6)
[2021-08-16 07:44] LABS: DIFFERENTIAL COMMENT MANUAL DIFFERENTIAL; PLATELET ESTIMATE, MANUAL INCREASED (>450,000) (NORMAL)
[2021-08-16] MEDS: CEFEPIME 2 GM in SODIUM CHLORIDE 0.9% MINIBAG 100 ML IV SCH ×2 (08:35→20:58)
[2021-08-16] MEDS: ENOXAPARIN 40 MG/0.4 ML SYRINGE SUBQ SCH (09:16)
[2021-08-16] MEDS: LACTULOSE 10 GM /15 ML UDC PO SCH (09:16)
--- NOTE | 2021-08-16 09:24 | PROVIDER PROGRESS NOTE ---
Assessment/Plan - Problem List (1) Perforated abdominal viscus Assessment/Plan: This was the cause of her sepsis. She had a perforated sigmoid colon with purulent ascitic fluid found. Over 1.5 L was drained and cultures are growing E. coli. We had resumed her iv vancomycin yesterday, when WBC worsened yesterday and continued iv cefepime and Flagyl IV. Her WBC and L shift improved slightly. Dr Zhao suspects she has Enterococcus infection. Continue iv Vanco, Cefepime and Flagyl. (2) Status post colostomy Impression: She had a colectomy with diverting colostomy and Funk's pouch. She has a postoperative ileus. She remains n.p.o. except meds and is on TPN. Dr Zhao placed a wound vac. Will replace K and Phos which are low today, wth KPhos rider. then in TPN Continue iv antibx, pain meds prn. Follow BMP, Mg and PO4 daily (3) Anasarca Impression: She has ongoing anasarca which is secondary to the IV fluids she received for severe sepsis. Her Echocardiogram showed no evidence of heart failure and leg duplex doppler was negative for DVT. She was 18 L pos yesterday since admission. Her fluid status had been (+) daily, even after iv Lasix was started 3 days ago. Yesterday we increased the iv Lasix dose from daily to biddiuretic, and decreased her iv TPN from 70 cc/hr to 60 cc/hr. She finally had a neg fluid balance (of 1L) yesterday. Continue Lasix iv bid. Continue with leg elevation. We ordered scheduled nebs tid plus prn q4h, since these help her, she reported. Follow daily weight and I's and O's, and daily BMP & Mg. (4) Hyperglycemia Impression: This continues and is likely secondary to the dextrose in her PPN. We have adjusted the amount of dextrose and her blood glucose is now in the acceptable range. Her A1c was within normal limits. (5) Hypokalemia Impression: This requires intermittent replacement with iv riders, and is in her TPN. Now that she is on Lasix bid, monitor K and Mg daily. (6) Severe sepsis Impression: Resolved. This was secondary to perforated abdominal viscus. (7) Atrial fibrillation with RVR Impression: Resolved. She had a brief episode of Afib with RVR early on during this hospitalization but she has since been in a sinus rhythm. Her heart rates are stable. We are holding anticoagulation given the recent surgical intervention and the fact that her CHADS score is 0. - Current Meds Current Meds: Current Medications Generic Name Dose Route Start Last Admin Trade Name Freq PRN Reason Stop Dose Admin Acetaminophen 650 mg 08/04/21 14:01 08/12/21 23:39 Acetaminophen 325 Mg Tablet PO 650 mg Q4HR PRN Administration PAIN Albuterol 2.5 mg 08/04/21 17:26 08/16/21 02:13 Albuterol Neb 2.5 Mg/3 Ml INH 2.5 mg RTQ4H PRN Administration Wheezing Albuterol 2.5 mg 08/15/21 22:00 08/16/21 07:10 Albuterol Neb 2.5 Mg/3 Ml INH 2.5 mg TID INGA Administration Enoxaparin Sodium 40 mg 08/05/21 09:00 08/16/21 09:16 Enoxaparin 40 Mg/0.4 Ml Syringe SUBQ 40 mg DAILY INGA Administration Furosemide 20 mg 08/15/21 14:26 08/16/21 06:22 Furosemide 20 Mg/2 Ml Vial IVP 20 mg BIDDIURETIC INGA Administration Hydromorphone HCl 0.5 mg 08/10/21 20:22 08/14/21 03:20 Hydromorphone 0.5 Mg/0.5 Ml Syringe IVP 0.5 mg Q1H PRN Administration PAIN Cefepime HCl 2 gm/ Sodium 100 mls @ 200 mls/hr 08/07/21 09:00 08/16/21 08:35 Chloride IV 200 mls/hr BID INGA Administration Metronidazole 500 mg in 100 mls @ 100 mls/hr 08/07/21 15:00 08/16/21 09:16 Flagyl 500 Mg/100 Ml IV 100 mls/hr Q8H INGA Administration Vancomycin HCl 1 gm/ 250 mls @ 167 mls/hr 08/14/21 22:00 08/16/21 00:33 Vancomycin HCl 250 mg/ Sodium IV Infused Chloride Q12H INGA Infusion Multivitamins 10 ml/ TRACE 2,034.3333 mls @ 60 mls/hr 08/15/21 19:00 08/15/21 18:36 ELEMENTS 1 ml/ Potassium IV 60 mls/hr Chloride 40 meq/ Potassium TPN/PPN INGA Administration Phosphate 10 mmol/ Amino Acids /Electrolytes Protocol Insulin Human Regular 1 - 9 unit 08/10/21 18:00 08/16/21 06:21 Insulin Regular Human 300 Unit/3 Ml Vial SUBQ Not Given Q6HR INGA Protocol Lactulose 10 gm 08/14/21 09:00 08/16/21 09:16 Lactulose 10 Gm /15 Ml Udc PO Not Given DAILY INGA Metoclopramide HCl 5 mg 08/13/21 18:00 08/16/21 06:11 Metoclopramide 10 Mg/2 Ml Vial IVP 5 mg Q6HR INGA Administration Metoprolol Tartrate 5 mg 08/12/21 17:00 08/16/21 06:18 Metoprolol 5 Mg/5 Ml Vial IVP 5 mg Q6H INGA Administration Morphine Sulfate 2 mg 08/06/21 10:21 08/16/21 09:15 Morphine 2 Mg/Ml Carpuject IVP 2 mg Q2HR PRN Administration PAIN Pantoprazole Sodium 40 mg 08/05/21 07:00 08/16/21 06:22 Pantoprazole 40 Mg Tablet PO 40 mg QDAC INGA Administration Sodium Chloride 10 ml 08/04/21 17:00 08/16/21 09:16 Sodium Chloride Flush 0.9% 10 Ml Syringe IVP 10 ml 0100,0900,1700 INGA Administration Sodium Chloride 10 ml 08/04/21 14:01 08/16/21 06:12 Sodium Chloride Flush 0.9% 10 Ml Syringe IVP 30 ml PRN PRN Administration NEEDED PER PROVIDER ORDERS - Lab Result Fish Bone Diagrams: 08/16/21 06:20 08/16/21 06:20 - Additional Planning My Orders: My Active Orders 08/15/21 14:26 FUROSEMIDE INJ 20mg VIAL [LASIX INJ 20mg VIAL] 20 mg IVP BIDDIURETIC 08/15/21 14:31 Resp Teach Nebulizer/MDI [RC] .ONCE 08/15/21 19:00 Multivitamin [Infuvite] 10 ml Trace Elements [Tralement Vial] 1 ml Potassium Chloride Inj [Potassium Chloride] 40 meq Potassium Phosphate 10 mmol TPN (Clinimix E 5/20) [Clinimix E 5%-20% Solution] 2,000 ml IV TPN/PPN 08/15/21 22:00 Albuterol 2.5 mg INH TID 08/16/21 09:16 Potassium Phosphate/NS 21 mmol/250 mL x 1 Potassium Phosphate 21 mmol Sodium Chloride 0.9% [Normal Saline 0.9%] 250 ml IV ONCE Subjective - Subjective Patient Reports: Feeling Better (less hand edema still massive leg edema) Objective Vital Signs: Vital Signs - 24 hr 08/15/21 08/15/21 08/15/21 12:17 12:25 12:30 Temperature Heart Rate Heart Rate [ 88 90 Brachial] Respiratory Rate Blood Pressure 124/70 Blood Pressure 115/69 115/71 [Right Brachial artery] O2 Saturation 08/15/21 08/15/21 08/15/21 12:35 12:47 16:06 Temperature Heart Rate 80 Heart Rate [ 93 104 H Brachial] Respiratory 20 20 Rate Blood Pressure Blood Pressure 148/78 H 114/67 [Right Brachial artery] O2 Saturation 94 08/15/21 08/15/21 08/15/21 16:15 16:18 16:20 Temperature Heart Rate Heart Rate [ 102 H 100 Brachial] Respiratory Rate Blood Pressure 120/72 Blood Pressure 121/70 102/65 [Right Brachial artery] O2 Saturation 08/15/21 08/15/21 08/15/21 16:21 16:50 20:31 Temperature 36.8 C 36.4 C L Heart Rate 84 Heart Rate [ 102 H Brachial] Respiratory 18 20 Rate Blood Pressure Blood Pressure 120/66 [Right Brachial artery] O2 Saturation 95 08/15/21 08/15/21 08/15/21 21:59 22:00 22:04 Temperature Heart Rate 82 Heart Rate [ 101 H 87 Brachial] Respiratory 18 Rate Blood Pressure 116/75 Blood Pressure 111/62 [Right Brachial artery] O2 Saturation 08/15/21 08/16/21 08/16/21 22:09 00:30 02:13 Temperature 36.3 C L Heart Rate 78 Heart Rate [ 90 98 Brachial] Respiratory 20 18 Rate Blood Pressure Blood Pressure 111/58 L 96/72 [Right Brachial artery] O2 Saturation 95 08/16/21 08/16/21 08/16/21 06:18 06:24 07:09 Temperature 36.1 C L Heart Rate 95 Heart Rate [ 97 Brachial] Respiratory 20 20 Rate Blood Pressure 123/71 Blood Pressure 123/71 [Right Brachial artery] O2 Saturation 96 08/16/21 08:28 Temperature 36.3 C L Heart Rate Heart Rate [ 100 Brachial] Respiratory 18 Rate Blood Pressure Blood Pressure 117/61 [Right Brachial artery] O2 Saturation 95 Oxygen O2 Source Room air I&O (Last 24 Hrs): Intake and Output Totals x24h 08/14/21 08/15/21 08/16/21 23:59 23:59 23:59 Intake Total 3138.667 3308 350 Output Total 1190 2520 1406 Balance 1948.667 788 -1056 General: Alert, Oriented x3 HEENT: Mucous membr. moist/pink Neck: Supple, No JVD Neuro: Alert, Non Focal Cardiovascular: Regular rate, No murmurs Respiratory: No respiratory distress, Breath sounds nml Abdomen: Soft, No tenderness, Other (wound vac in place) Extremities: Other (4+ leg edema to hips) - Results Results: Laboratory Results WBC 21.5 x10^3/uL (4.8-10.8) H 08/16/21 06:20 RBC 3.37 10^6/uL (4.20-5.40) L 08/16/21 06:20 Hgb 10.1 g/dL (12.0-16.0) L 08/16/21 06:20 Hct 31.0 % (37.0-47.0) L 08/16/21 06:20 MCV 92.0 fL (81.0-99.0) 08/16/21 06:20 MCH 30.0 pg (27.0-31.0) 08/16/21 06:20 MCHC 32.6 g/dL (32.0-36.0) 08/16/21 06:20 RDW 13.5 % (12.0-15.0) 08/16/21 06:20 Plt Count 625 10^3/uL (130-450) H 08/16/21 06:20 MPV 8.5 fL (7.9-10.8) 08/16/21 06:20 Neut # (Auto) Not Reportable 08/16/21 06:20 Lymph # (Auto) Not Reportable 08/16/21 06:20 [place] # (Auto) Not Reportable 08/16/21 06:20 Eos # (Auto) Not Reportable 08/16/21 06:20 Baso # (Auto) Not Reportable 08/16/21 06:20 Absolute Nucleated RBC Not Reportable 08/16/21 06:20 Total Counted 100 08/16/21 06:20 Band Neuts % (Manual) 5 % (0-10) 08/16/21 06:20 Abnorm Lymph % (Manual) 0 % 08/16/21 06:20 Metamyelocytes % 1 % (-0) H 08/16/21 06:20 Myelocytes % 1 % (-0) H 08/16/21 06:20 Nucleated RBC % Not Reportable 08/16/21 06:20 Neutrophils # (Manual) 18.5 10^3/uL (1.5-6.6) H 08/16/21 06:20 Lymphocytes # (Manual) 1.1 10^3/uL (1.5-3.5) L 08/16/21 06:20 Monocytes # (Manual) 0.9 10^3/uL (0.0-1.0) 08/16/21 06:20 Eosinophils # (Manual) 0.6 10^3/uL (0-0.7) 08/16/21 06:20 Basophils # (Manual) 0.0 10^3/uL (0-0.1) 08/16/21 06:20 Differential Comment MANUAL DIFFERENTIAL 08/16/21 06:20 WBC Morphology NORMAL APPEARANCE (NORMAL) 08/14/21 06:00 Platelet Estimate INCREASED (>450,000) (NORMAL) 08/16/21 06:20 Platelet Morphology NORMAL APPEARANCE (NORMAL) 08/14/21 06:00 RBC Morph Micro Appear 1+ HYPOCHROMASIA (NORMAL) 1+ POLYCHROMASIA (NORMAL) 08/16/21 06:20 RBC Morph Micro Appear 1+ HYPOCHROMASIA (NORMAL) 1+ POLYCHROMASIA (NORMAL) 08/16/21 06:20 VBG pH 7.424 (7.31-7.41) H 08/09/21 09:10 VBG pCO2 29.5 mmHg (41-51) L 08/09/21 09:10 VBG pO2 75.4 mmHg (25-47) H 08/09/21 09:10 VBG HCO3 18.9 mmol/L (23-28) L 08/09/21 09:10 VBG Total CO2 19.8 mmol/L (24-29) L 08/09/21 09:10 VBG O2 Saturation 95.7 % (60-80) H 08/09/21 09:10 VBG Base Excess -4.2 mmol/L (-2 - +2) L 08/09/21 09:10 Sodium 136 mmol/L (135-145) 08/16/21 06:20 Potassium 3.1 mmol/L (3.5-5.0) L 08/16/21 06:20 Chloride 98 mmol/L (101-111) L 08/16/21 06:20 Carbon Dioxide 30 mmol/L (21-32) 08/16/21 06:20 Anion Gap 8.0 (6-13) 08/16/21 06:20 BUN 16 mg/dL (6-20) 08/16/21 06:20 Creatinine 0.4 mg/dL (0.4-1.0) 08/16/21 06:20 Estimated GFR (MDRD) 159 (>89) 08/16/21 06:20 Glucose 123 mg/dL (70-100) H 08/16/21 06:20 POC Whole Bld Glucose 113 mg/dL (70 - 100) H 08/16/21 06:09 Estimat Average Glucose 114 mg/dL (70-100) H 08/10/21 04:15 Hemoglobin A1c % 5.6 % (4.27-6.07) 08/10/21 04:15 Lactic Acid 1.0 mmol/L (0.5-2.2) 08/08/21 14:59 Calcium 8.1 mg/dL (8.5-10.3) L 08/16/21 06:20 Phosphorus 2.4 mg/dL (2.5-4.6) L 08/16/21 06:20 Magnesium 1.8 mg/dL (1.7-2.8) 08/16/21 06:20 Total Bilirubin 0.3 mg/dL (0.2-1.0) 08/16/21 06:20 AST 29 IU/L (10-42) 08/16/21 06:20 ALT 20 IU/L (10-60) 08/16/21 06:20 Alkaline Phosphatase 56 IU/L (42-121) 08/16/21 06:20 Troponin I High Sens 4.4 ng/L (2.3-14.8) 08/05/21 23:25 Total Protein 4.7 g/dL (6.7-8.2) L 08/16/21 06:20 Albumin 1.5 g/dL (3.2-5.5) L 08/16/21 06:20 Globulin 3.2 g/dL (2.1-4.2) 08/16/21 06:20 Albumin/Globulin Ratio 0.5 (1.0-2.2) L 08/16/21 06:20 Prealbumin 8 mg/dL (18-45) L 08/16/21 06:20 Triglycerides 80 mg/dL (-149) 08/16/21 06:20 Lipase 18 U/L (22-51) L 08/04/21 11:10 TSH 1.65 uIU/mL (0.34-5.60) 08/06/21 04:50 Urine Color YELLOW 08/05/21 21:30 Urine Clarity CLEAR (CLEAR) 08/05/21 21:30 Urine pH 5.0 PH (5.0-7.5) 08/05/21 21:30 Ur Specific [place] >=1.030 (1.002-1.030) H 08/05/21 21:30 Urine Protein 30 mg/dL (NEGATIVE) H 08/05/21 21:30 Urine Glucose (UA) NEGATIVE mg/dL (NEGATIVE) 08/05/21 21:30 Urine Ketones TRACE mg/dL (NEGATIVE) 08/05/21 21:30 Urine Occult Blood NEGATIVE (NEGATIVE) 08/05/21 21:30 Urine Nitrite NEGATIVE (NEGATIVE) 08/05/21 21:30 Urine Bilirubin NEGATIVE (NEGATIVE) 08/05/21 21:30 Urine Urobilinogen 1 (NORMAL) E.U./dL (NORMAL) 08/05/21 21:30 Ur Leukocyte Esterase NEGATIVE (NEGATIVE) 08/05/21 21:30 Urine RBC None Seen /HPF (0-5) 08/05/21 21:30 Urine WBC 0-3 /HPF (0-5) 08/05/21 21:30 Ur Squamous Epith Cells FEW Squamous (<= Few) 08/05/21 21:30 Amorphous Sediment Few /LPF 08/05/21 21:30 Urine Bacteria Rare /HPF (None Seen) 08/05/21 21:30 Urine Culture Comments NOT INDICATED 08/05/21 21:30 Nasal Adenovirus (PCR) NOT DETECTED 08/04/21 13:20 Nasal B. parapertussis DNA (PCR) NOT DETECTED 08/04/21 13:20 Nasal Coronavir 229E PCR NOT DETECTED 08/04/21 13:20 Nasal Coronavir HKU1 PCR NOT DETECTED 08/04/21 13:20 Nasal Coronavir NL63 PCR NOT DETECTED 08/04/21 13:20 Nasal Coronavir OC43 PCR NOT DETECTED 08/04/21 13:20 Nasal Enterovir/Rhinovir PCR NOT DETECTED 08/04/21 13:20 Nasal Influenza B PCR NOT DETECTED 08/04/21 13:20 Nasal Influenza A PCR NOT DETECTED 08/04/21 13:20 Nasal Parainfluen 1 PCR NOT DETECTED 08/04/21 13:20 Nasal Parainfluen 2 PCR NOT DETECTED 08/04/21 13:20 Nasal Parainfluen 3 PCR NOT DETECTED 08/04/21 13:20 Nasal Parainfluen 4 PCR NOT DETECTED 08/04/21 13:20 Nasal RSV (PCR) NOT DETECTED 08/04/21 13:20 Nasal B.pertussis DNA PCR NOT DETECTED 08/04/21 13:20 Nasal C.pneumoniae (PCR) NOT DETECTED 08/04/21 13:20 [place] Human Metapneumo PCR NOT DETECTED 08/04/21 13:20 Nasal M.pneumoniae (PCR) NOT DETECTED 08/04/21 13:20 Nasal SARS-CoV-2 (PCR) NOT DETECTED 08/04/21 13:20 Last Dose Date K 08/09/21 09:10 Last Dose Time [facility] 08/09/21 09:10 Vancomycin Trough 15.4 ug/mL (10.0-20.0) 08/09/21 09:10 Sepsis Event Note (H) - Evaluation Current Stage of Sepsis: Severe sepsis Possible source of Sepsis: positive: GI tract/intra-abdominal - Sepsis Criteria Sepsis Criteria: Recorded Heart Rate greater than 90 bpm, WBC count greater than 10% bands, WBC count greater than 12,000 or less than 4000, Metabolic: lactate > 2 mmol/L
[2021-08-16] MEDS ORDERED: POTASSIUM PHOSPHATE 21 MMOL in SODIUM CHLORIDE 0.9% 250 ML IV ONE (10:30)
[2021-08-16 10:35] LABS: VANCOMYCIN,TROUGH 11.6 ug/mL (10.0-20.0)
--- NOTE | 2021-08-16 11:10 | PROVIDER PROGRESS NOTE ---
Subjective - General Admit Date: 08/04/21 Procedure Date: 08/09/21 Post Op Days: 7 Procedure Performed: Laparotomy with Kenneth procedure - Review of Systems Wound/Incisions: positive: Other (A minimal amount of purulent slough at the base of the wound. No foul odor. No visible granulation tissue.) Drain Type: Mo Drain Output Description: Serous General: positive: Weakness HEENT: positive: No symptoms Pulmonary: negative: Shortness of breath Cardiovascular: positive: No symptoms Gastrointestinal: positive: Abdominal pain. negative: Nausea, Vomiting Genitourinary: positive: No symptoms Skin: positive: Other (Still frustrated about the swelling) All Other Systems: positive: Reviewed and negative - Other Other Information/Narrative: Finally negative one liter yesterday. Really wants to have scheduled Nebs every 4 hours. She says she starts to feel anxious and can't rest in between treatments. Declined Lactulose this morning because she says the taste makes her gag. A little mucoid ostomy output yesterday. Pain is well controlled. Making plans to go to her daughter Sahara's house after discharge as opposed to rehab. Objective - Patient Data Vital Signs: Vital Signs x48h Temp Pulse Pulse Resp BP BP Pulse Ox 08/16/21 08:28 36.3 C L 100 18 117/61 95 08/16/21 07:09 95 20 08/16/21 06:24 36.1 C L 97 20 123/71 96 08/16/21 06:18 123/71 Weight: Weight 08/14/21 08/15/21 08/16/21 23:59 23:59 23:59 Weight (kg) 94.5 kg 95 kg Intake & Output: Intake and Output Totals x24h 08/14/21 08/15/21 08/16/21 23:59 23:59 23:59 Intake Total 3138.667 3308 350 Output Total 1190 2520 1406 Balance 1948.667 744 -1056 - Lab Results Lab Results: 08/16/21 06:20 08/16/21 06:20 Other Lab Results: Lab Results x24hrs 08/16/21 08/16/21 08/16/21 Range/Units 10:15 06:20 06:20 WBC 21.5 H (4.8-10.8) x10^3/uL RBC 3.37 L (4.20-5.40) 10^6/uL Hgb 10.1 L (12.0-16.0) g/dL Hct 31.0 L (37.0-47.0) % MCV 92.0 (81.0-99.0) fL MCH 30.0 (27.0-31.0) pg MCHC 32.6 (32.0-36.0) g/dL RDW 13.5 (12.0-15.0) % Plt Count 625 H (130-450) 10^3/uL MPV 8.5 (7.9-10.8) fL Neut # (Auto) Not Reportable Lymph # (Auto) Not Reportable [place] # (Auto) Not Reportable Eos # (Auto) Not Reportable Baso # (Auto) Not Reportable Absolute Nucleated RBC Not Reportable Total Counted 100 Band Neuts % (Manual) 5 (0 - 10) % Abnorm Lymph % (Manual) 0 % Metamyelocytes % 1 H ( - 0) % Myelocytes % 1 H ( - 0) % Nucleated RBC % Not Reportable Neutrophils # (Manual) 18.5 H (1.5-6.6) 10^3/uL Lymphocytes # (Manual) 1.1 L (1.5-3.5) 10^3/uL Monocytes # (Manual) 0.9 (0.0-1.0) 10^3/uL Eosinophils # (Manual) 0.6 (0-0.7) 10^3/uL Basophils # (Manual) 0.0 (0-0.1) 10^3/uL Differential Comment MANUAL DIFFERENTIAL Platelet Estimate INCREASED (>450,000) (NORMAL) RBC Morph Micro Appear 1+ POLYCHROMASIA (NORMAL) Sodium 136 (135-145) mmol/L Potassium 3.1 L (3.5-5.0) mmol/L Chloride 98 L (101-111) mmol/L Carbon Dioxide 30 (21-32) mmol/L Anion Gap 8.0 (6-13) BUN 16 (6-20) mg/dL Creatinine 0.4 (0.4-1.0) mg/dL Estimated GFR (MDRD) 159 (>89) Glucose 123 H (70-100) mg/dL POC Whole Bld Glucose (70 - 100) mg/dL Calcium 8.1 L (8.5-10.3) mg/dL Phosphorus 2.4 L (2.5-4.6) mg/dL Magnesium 1.8 (1.7-2.8) mg/dL Total Bilirubin 0.3 (0.2-1.0) mg/dL AST 29 (10-42) IU/L ALT 20 (10-60) IU/L Alkaline Phosphatase 56 (42-121) IU/L Total Protein 4.7 L (6.7-8.2) g/dL Albumin 1.5 L (3.2-5.5) g/dL Globulin 3.2 (2.1-4.2) g/dL Albumin/Globulin Ratio 0.5 L (1.0-2.2) Prealbumin 8 L (18-45) mg/dL Triglycerides 80 ( - 149) mg/dL Last Dose Date 08/16/21 Last Dose Time 00:33 Vancomycin Trough 11.6 (10.0-20.0) ug/mL 08/16/21 08/16/21 08/15/21 Range/Units 06:09 00:21 17:52 WBC (4.8-10.8) x10^3/uL RBC (4.20-5.40) 10^6/uL Hgb (12.0-16.0) g/dL Hct (37.0-47.0) % MCV (81.0-99.0) fL MCH (27.0-31.0) pg MCHC (32.0-36.0) g/dL RDW (12.0-15.0) % Plt Count (130-450) 10^3/uL MPV (7.9-10.8) fL Neut # (Auto) Lymph # (Auto) [place] # (Auto) Eos # (Auto) Baso # (Auto) Absolute Nucleated RBC Total Counted Band Neuts % (Manual) (0 - 10) % Abnorm Lymph % (Manual) % Metamyelocytes % ( - 0) % Myelocytes % ( - 0) % Nucleated RBC % Neutrophils # (Manual) (1.5-6.6) 10^3/uL Lymphocytes # (Manual) (1.5-3.5) 10^3/uL Monocytes # (Manual) (0.0-1.0) 10^3/uL Eosinophils # (Manual) (0-0.7) 10^3/uL Basophils # (Manual) (0-0.1) 10^3/uL Differential Comment Platelet Estimate (NORMAL) RBC Morph Micro Appear (NORMAL) Sodium (135-145) mmol/L Potassium (3.5-5.0) mmol/L Chloride (101-111) mmol/L Carbon Dioxide (21-32) mmol/L Anion Gap (6-13) BUN (6-20) mg/dL Creatinine (0.4-1.0) mg/dL Estimated GFR (MDRD) (>89) Glucose (70-100) mg/dL POC Whole Bld Glucose 113 H 131 H 111 H (70 - 100) mg/dL Calcium (8.5-10.3) mg/dL Phosphorus (2.5-4.6) mg/dL Magnesium (1.7-2.8) mg/dL Total Bilirubin (0.2-1.0) mg/dL AST (10-42) IU/L ALT (10-60) IU/L Alkaline Phosphatase (42-121) IU/L Total Protein (6.7-8.2) g/dL Albumin (3.2-5.5) g/dL Globulin (2.1-4.2) g/dL Albumin/Globulin Ratio (1.0-2.2) Prealbumin (18-45) mg/dL Triglycerides ( - 149) mg/dL Last Dose Date Last Dose Time Vancomycin Trough (10.0-20.0) ug/mL 08/15/21 Range/Units 12:04 WBC (4.8-10.8) x10^3/uL RBC (4.20-5.40) 10^6/uL Hgb (12.0-16.0) g/dL Hct (37.0-47.0) % MCV (81.0-99.0) fL MCH (27.0-31.0) pg MCHC (32.0-36.0) g/dL RDW (12.0-15.0) % Plt Count (130-450) 10^3/uL MPV (7.9-10.8) fL Neut # (Auto) Lymph # (Auto) [place] # (Auto) Eos # (Auto) Baso # (Auto) Absolute Nucleated RBC Total Counted Band Neuts % (Manual) (0 - 10) % Abnorm Lymph % (Manual) % Metamyelocytes % ( - 0) % Myelocytes % ( - 0) % Nucleated RBC % Neutrophils # (Manual) (1.5-6.6) 10^3/uL Lymphocytes # (Manual) (1.5-3.5) 10^3/uL Monocytes # (Manual) (0.0-1.0) 10^3/uL Eosinophils # (Manual) (0-0.7) 10^3/uL Basophils # (Manual) (0-0.1) 10^3/uL Differential Comment Platelet Estimate (NORMAL) RBC Morph Micro Appear (NORMAL) Sodium (135-145) mmol/L Potassium (3.5-5.0) mmol/L Chloride (101-111) mmol/L Carbon Dioxide (21-32) mmol/L Anion Gap (6-13) BUN (6-20) mg/dL Creatinine (0.4-1.0) mg/dL Estimated GFR (MDRD) (>89) Glucose (70-100) mg/dL POC Whole Bld Glucose 167 H (70 - 100) mg/dL Calcium (8.5-10.3) mg/dL Phosphorus (2.5-4.6) mg/dL Magnesium (1.7-2.8) mg/dL Total Bilirubin (0.2-1.0) mg/dL AST (10-42) IU/L ALT (10-60) IU/L Alkaline Phosphatase (42-121) IU/L Total Protein (6.7-8.2) g/dL Albumin (3.2-5.5) g/dL Globulin (2.1-4.2) g/dL Albumin/Globulin Ratio (1.0-2.2) Prealbumin (18-45) mg/dL Triglycerides ( - 149) mg/dL Last Dose Date Last Dose Time Vancomycin Trough (10.0-20.0) ug/mL - Current Medications Current Medications: Current Medications Generic Name Dose Route Start Last Admin Trade Name Freq PRN Reason Stop Dose Admin Acetaminophen 650 mg 08/04/21 14:01 08/12/21 23:39 Acetaminophen 325 Mg Tablet PO 650 mg Q4HR PRN Administration PAIN Albuterol 2.5 mg 08/04/21 17:26 08/16/21 02:13 Albuterol Neb 2.5 Mg/3 Ml INH 2.5 mg RTQ4H PRN Administration Wheezing Albuterol 2.5 mg 08/15/21 22:00 08/16/21 07:10 Albuterol Neb 2.5 Mg/3 Ml INH 2.5 mg TID INGA Administration Enoxaparin Sodium 40 mg 08/05/21 09:00 08/16/21 09:16 Enoxaparin 40 Mg/0.4 Ml Syringe SUBQ 40 mg DAILY INGA Administration Furosemide 20 mg 08/15/21 14:26 08/16/21 06:22 Furosemide 20 Mg/2 Ml Vial IVP 20 mg BIDDIURETIC INGA Administration Hydromorphone HCl 0.5 mg 08/10/21 20:22 08/14/21 03:20 Hydromorphone 0.5 Mg/0.5 Ml Syringe IVP 0.5 mg Q1H PRN Administration PAIN Cefepime HCl 2 gm/ Sodium 100 mls @ 200 mls/hr 08/07/21 09:00 08/16/21 08:35 Chloride IV 200 mls/hr BID INGA Administration Metronidazole 500 mg in 100 mls @ 100 mls/hr 08/07/21 15:00 08/16/21 09:16 Flagyl 500 Mg/100 Ml IV 100 mls/hr Q8H INGA Administration Vancomycin HCl 1 gm/ 250 mls @ 167 mls/hr 08/14/21 22:00 08/16/21 00:33 Vancomycin HCl 250 mg/ Sodium IV Infused Chloride Q12H INGA Infusion Multivitamins 10 ml/ TRACE 2,034.3333 mls @ 60 mls/hr 08/15/21 19:00 08/15/21 18:36 ELEMENTS 1 ml/ Potassium IV 60 mls/hr Chloride 40 meq/ Potassium TPN/PPN INGA Administration Phosphate 10 mmol/ Amino Acids /Electrolytes Protocol Insulin Human Regular 1 - 9 unit 08/10/21 18:00 08/16/21 06:21 Insulin Regular Human 300 Unit/3 Ml Vial SUBQ Not Given Q6HR COUNTS INCLUDE 234 BEDS AT THE [facility] Protocol Lactulose 10 gm 08/14/21 09:00 08/16/21 09:16 Lactulose 10 Gm /15 Ml Udc PO Not Given DAILY INGA Metoclopramide HCl 5 mg 08/13/21 18:00 08/16/21 06:11 Metoclopramide 10 Mg/2 Ml Vial IVP 5 mg Q6HR INGA Administration Metoprolol Tartrate 5 mg 08/12/21 17:00 08/16/21 06:18 Metoprolol 5 Mg/5 Ml Vial IVP 5 mg Q6H INGA Administration Morphine Sulfate 2 mg 08/06/21 10:21 08/16/21 09:15 Morphine 2 Mg/Ml Carpuject IVP 2 mg Q2HR PRN Administration PAIN Pantoprazole Sodium 40 mg 08/05/21 07:00 08/16/21 06:22 Pantoprazole 40 Mg Tablet PO 40 mg QDAC INGA Administration Sodium Chloride 10 ml 08/04/21 17:00 08/16/21 09:16 Sodium Chloride Flush 0.9% 10 Ml Syringe IVP 10 ml 0100,0900,1700 INGA Administration Sodium Chloride 10 ml 08/04/21 14:01 08/16/21 06:12 Sodium Chloride Flush 0.9% 10 Ml Syringe IVP 30 ml PRN PRN Administration NEEDED PER PROVIDER ORDERS - Physical Exam Comments/Other: Wound vac is in place and functioning. Ostomy bag is holding for now. Few audible bowel sounds ABX Reporting Has patient been on IV antibiotics over the past 48 hours?: Yes Impression/Plan - Problem List Problem List: POD #7 after laparotomy and arias procedure for perforated colon secondary to severe constipation 1. WBC and diff going in the right direction again. Will continue with our curre nt recipe. Plan to CT if we take a turn in the opposite direction again 2. Nutrition - drinking liquids. No air from the ostomy and minimal output al together. Bowel sounds have improved to some degree. She cannot tolerate lactulose so will try Miralax. We need to keep the remaining stool in the right colon soft and moving. Tolerating reglan ok. Prealb up to 8. Severe malnutrition 3. Resp - will increased nebs to q 4 hours scheduled 4. Anasarca - lasix is helping. Should improve significantly when prealbumin up to 15. 5. Increase activity as tolerated. She reports she is really trying
[2021-08-16] MEDS: VANCOMYCIN INJ 1 GM, VANCOMYCIN INJ 250 MG in SODIUM CHLORIDE 0.9% 250 ML IV SCH (11:36)
[2021-08-16] MEDS ORDERED: DEXTROSE 50% ABBOJECT 25 GM/50 ML SYRINGE IVP ONE (18:10)
[2021-08-16] MEDS: MULTIVITAMIN IV SCH ×5 (18:46)
[2021-08-16] MEDS: TPN IV SCH ×5 (18:46)
[2021-08-16] MEDS: TRACE ELEMENTS IV SCH ×5 (18:46)
[2021-08-16] MEDS: [UNRECOGNIZED DRUG - OTHER] IV SCH ×5 (18:46)
[2021-08-16] MEDS: polyethylene glycoL 3350 17 GM PACKET PO SCH (21:05)
[2021-08-17] MEDS: METOCLOPRAMIDE 10 MG/2 ML VIAL IVP SCH ×5 (00:01→23:51)
[2021-08-17] MEDS: VANCOMYCIN INJ 1.75 GM in SODIUM CHLORIDE 0.9% 500 ML IV SCH ×3 (00:04→23:51)
[2021-08-17] MEDS: INSULIN REGULAR HUMAN 300 UNIT/3 ML VIAL SUBQ SCH ×4 (00:05→19:39)
[2021-08-17] MEDS: MORPHINE 2 MG/ML CARPUJECT IVP PRN ×3 (00:18→14:56)
[2021-08-17] MEDS: ALBUTEROL NEB 2.5 MG/3 ML INH PRN ×2 (00:24→11:22)
[2021-08-17] MEDS: SODIUM CHLORIDE FLUSH 0.9% 10 ML SYRINGE IVP SCH ×3 (01:05→19:32)
[2021-08-17] MEDS: metroNIDAZOLE 500 MG/100 ML 500 MG/100 ML BAG IV SCH ×3 (02:19→19:32)
[2021-08-17] MEDS: METOPROLOL 5 MG/5 ML VIAL IVP SCH ×4 (05:34→23:51)
[2021-08-17] MEDS: FUROSEMIDE 20 MG/2 ML VIAL IVP SCH ×2 (05:35→13:51)
[2021-08-17] MEDS: PANTOPRAZOLE 40 MG TABLET PO SCH (06:00)
[2021-08-17] MEDS: ALBUTEROL NEB 2.5 MG/3 ML INH SCH ×3 (07:33→23:26)
[2021-08-17] MEDS: CEFEPIME 2 GM in SODIUM CHLORIDE 0.9% MINIBAG 100 ML IV SCH ×2 (08:18→21:22)
[2021-08-17] MEDS: polyethylene glycoL 3350 17 GM PACKET PO SCH ×2 (09:00→21:22)
[2021-08-17] MEDS: ENOXAPARIN 40 MG/0.4 ML SYRINGE SUBQ SCH (09:04)
[2021-08-17] MEDS: LACTULOSE 10 GM /15 ML UDC PO SCH (09:04)
--- NOTE | 2021-08-17 10:43 | PROVIDER PROGRESS NOTE ---
Subjective - General Admit Date: 08/04/21 Procedure Date: 08/09/21 Post Op Days: 8 Procedure Performed: Laparotomy with Kenneth procedure - Review of Systems Wound/Incisions: positive: Other (A minimal amount of purulent slough at the base of the wound. No foul odor. No visible granulation tissue.) Drain Type: Mo Drain Output Description: Serous General: positive: Weakness HEENT: positive: No symptoms Pulmonary: negative: Shortness of breath Cardiovascular: positive: No symptoms Gastrointestinal: positive: Abdominal pain. negative: Nausea, Vomiting Genitourinary: positive: No symptoms Skin: positive: Other (Still frustrated about the swelling) All Other Systems: positive: Reviewed and negative - Other Other Information/Narrative: Overall doing ok. Does feel she could use nebs more frequently (morena Q8 scheduled), didnt realize she had prn nebs she could request already ordered so she is going to try this. Pain controlled. Up to chair this am. Objective - Patient Data Reviewed Vital Signs: Yes Vital Signs: Vital Signs x48h Pulse Pulse Resp BP BP Pulse Ox 08/17/21 07:33 97 20 08/17/21 06:35 82 117/67 08/17/21 06:20 86 113/63 08/17/21 06:05 85 109/59 L 08/17/21 05:50 90 120/63 08/17/21 05:45 95 119/64 08/17/21 05:40 97 129/70 08/17/21 05:35 97 20 131/65 H 94 08/17/21 05:34 131/65 H Weight: Weight 08/15/21 08/16/21 08/17/21 23:59 23:59 23:59 Weight (kg) 95 kg Intake & Output: Intake and Output Totals x24h 08/15/21 08/16/21 08/17/21 23:59 23:59 23:59 Intake Total 3308 2711.333 920 Output Total 2520 2286 700 Balance 788 425.333 220 - Lab Results Lab Results: 08/16/21 06:20 08/16/21 06:20 Other Lab Results: Lab Results x24hrs 08/17/21 08/16/21 08/16/21 Range/Units 05:31 23:59 18:53 POC Whole Bld Glucose 112 H 128 H 94 (70 - 100) mg/dL Last Dose Date Last Dose Time 08/16/21 08/16/21 08/16/21 Range/Units 17:55 11:59 10:15 POC Whole Bld Glucose 55 L* 151 H (70 - 100) mg/dL Last Dose Date 08/16/21 Last Dose Time 00:33 - Current Medications Current Medications: Current Medications Generic Name Dose Route Start Last Admin Trade Name Freq PRN Reason Stop Dose Admin Acetaminophen 650 mg 08/04/21 14:01 08/12/21 23:39 Acetaminophen 325 Mg Tablet PO 650 mg Q4HR PRN Administration PAIN Albuterol 2.5 mg 08/04/21 17:26 08/17/21 00:24 Albuterol Neb 2.5 Mg/3 Ml INH 2.5 mg RTQ4H PRN Administration Wheezing Albuterol 2.5 mg 08/15/21 22:00 08/17/21 07:33 Albuterol Neb 2.5 Mg/3 Ml INH 2.5 mg TID INGA Administration Enoxaparin Sodium 40 mg 08/05/21 09:00 08/17/21 09:04 Enoxaparin 40 Mg/0.4 Ml Syringe SUBQ 40 mg DAILY INGA Administration Furosemide 20 mg 08/15/21 14:26 08/17/21 05:35 Furosemide 20 Mg/2 Ml Vial IVP 20 mg BIDDIURETIC INGA Administration Hydromorphone HCl 0.5 mg 08/10/21 20:22 08/14/21 03:20 Hydromorphone 0.5 Mg/0.5 Ml Syringe IVP 0.5 mg Q1H PRN Administration PAIN Cefepime HCl 2 gm/ Sodium 100 mls @ 200 mls/hr 08/07/21 09:00 08/17/21 09:20 Chloride IV Infused BID INGA Infusion Metronidazole 500 mg in 100 mls @ 100 mls/hr 08/07/21 15:00 08/17/21 10:13 Flagyl 500 Mg/100 Ml IV Infused Q8H INGA Infusion Multivitamins 10 ml/ TRACE 2,034.3333 mls @ 60 mls/hr 08/15/21 19:00 08/16/21 18:46 ELEMENTS 1 ml/ Potassium IV 60 mls/hr Chloride 40 meq/ Potassium TPN/PPN INGA Administration Phosphate 10 mmol/ Amino Acids /Electrolytes Protocol Vancomycin HCl 1.75 gm/ Sodium 500 mls @ 250 mls/hr 08/16/21 23:30 08/17/21 02:14 Chloride IV Infused Q12H INGA Infusion Insulin Human Regular 1 - 9 unit 08/10/21 18:00 08/17/21 05:32 Insulin Regular Human 300 Unit/3 Ml Vial SUBQ Not Given Q6HR INGA Protocol Lactulose 10 gm 08/14/21 09:00 08/17/21 09:04 Lactulose 10 Gm /15 Ml Udc PO Not Given DAILY INGA Metoclopramide HCl 5 mg 08/13/21 18:00 08/17/21 05:45 Metoclopramide 10 Mg/2 Ml Vial IVP 5 mg Q6HR INGA Administration Metoprolol Tartrate 5 mg 08/12/21 17:00 08/17/21 05:34 Metoprolol 5 Mg/5 Ml Vial IVP 5 mg Q6H INGA Administration Morphine Sulfate 2 mg 08/06/21 10:21 08/17/21 00:18 Morphine 2 Mg/Ml Carpuject IVP 2 mg Q2HR PRN Administration PAIN Pantoprazole Sodium 40 mg 08/05/21 07:00 08/17/21 06:00 Pantoprazole 40 Mg Tablet PO 40 mg QDAC INGA Administration Polyethylene Glycol 17 gm 08/16/21 21:00 08/17/21 09:00 Polyethylene Glycol 3350 17 Gm Packet PO 17 gm BID INGA Administration Sodium Chloride 10 ml 08/04/21 17:00 08/17/21 09:03 Sodium Chloride Flush 0.9% 10 Ml Syringe IVP 10 ml 0100,0900,1700 INGA Administration Sodium Chloride 10 ml 08/04/21 14:01 08/16/21 06:12 Sodium Chloride Flush 0.9% 10 Ml Syringe IVP 30 ml PRN PRN Administration NEEDED PER PROVIDER ORDERS - Physical Exam Wound/Incisions: positive: Other (wound vac in place) General Appearance: positive: No acute distress, Alert Eyes Bilateral: positive: EOMI Respiratory: positive: No respiratory distress, Wheezes Cardiovascular: positive: Regular rate & rhythm Abdomen: positive: Other (soft, appropriately tender, ostomy pink with sweat in bag, no stool) Skin: positive: Warm, Dry Extremities: positive: Pedal edema Neurologic/Psychiatric: positive: Oriented x3, Mood/affect nml ABX Reporting Has patient been on IV antibiotics over the past 48 hours?: Yes Impression/Plan - Problem List Problem List: 66 yo F s/p Kenneth's for sigmoid perf 2/2 constipation. Main concern now is her breathing/nebs. Lasix helping. Awaiting ROBF - Continue pain reg - continue abx reg (cefepime/flagyl/vanco) - am labs pending f/u WBC today - continue bowel reg - continue NPO and TPN, serial nutrition labs - continue RT tx and nebs, continue PT - SCDs and Lovenox - appreciate Med assistance Ariel Wilde MD General Surgery
[2021-08-17 11:01] LABS: HCT - HEMATOCRIT 31.1 % (37.0-47.0); MEAN CORPUSCULAR HEMOGLOBIN 29.9 pg (27.0-31.0); MEAN CORPUSCULAR HGB CONC 32.2 g/dL (32.0-36.0); MEAN CORPUSCULAR VOLUME 93.1 fL (81.0-99.0); MEAN PLATELET VOLUME 8.3 fL (7.9-10.8); RED BLOOD COUNT 3.34 10^6/uL (4.20-5.40); RED CELL DISTRIBUTION WIDTH 13.7 % (12.0-15.0); WHITE BLOOD COUNT 23.7 x10^3/uL (4.8-10.8)
[2021-08-17 11:10] LABS: CALCIUM 8.1 mg/dL (8.5-10.3); CREATININE 0.4 mg/dL (0.4-1.0); POTASSIUM 3.2 mmol/L (3.5-5.0)
[2021-08-17] MEDS: SODIUM CHLORIDE FLUSH 0.9% 10 ML SYRINGE IVP PRN (13:52)
--- NOTE | 2021-08-17 16:24 | PROVIDER PROGRESS NOTE ---
Assessment/Plan - Problem List (1) Perforated abdominal viscus Assessment/Plan: This was the cause of her sepsis. She had a perforated sigmoid colon with purulent ascitic fluid found. Over 1.5 L was drained and cultures are growing E. coli. We had resumed her iv vancomycin yesterday, when WBC worsend and continued the iv cefepime and Flagyl IV. Her WBC and L shift are slowly improving. Dr Zhao suspects she has Enterococcus infection. Continue iv Vanco, Cefepime and Flagyl. (2) Status post colostomy Impression: She had a colectomy with diverting colostomy and Funk's pouch. She has a postoperative ileus. She remains n.p.o. except meds and is on TPN. Dr Zhao placed a wound vac. Will replace K and Phos in TPN Continue iv antibx, pain meds prn. Follow BMP, Mg and PO4 daily (3) Anasarca Impression: She has ongoing anasarca which is secondary to the IV fluids she received for severe sepsis. Her Echocardiogram showed no evidence of heart failure and leg duplex doppler was negative for DVT. She was 18 L pos yesterday since admission. Her fluid status had been (+) daily, even after iv Lasix was started 3 days ago. We already increased the iv Lasix dose from daily to biddiuretic, and decreased her iv TPN from 70 cc/hr to 60 cc/hr. Continue Lasix iv bid but will increase the dose from 20 mg to 40 mg Continue with leg elevation when OOB and promote using the ordered SCDs. We ordered scheduled nebs tid plus prn q4h, since these help her, she reported. Follow daily weight and I's and O's, and daily BMP & Mg. (4) Hyperglycemia Impression: This continues and is likely secondary to the dextrose in her PPN. We have adjusted the amount of dextrose and her blood glucose is now in the acceptable range. Her A1c was within normal limits. (5) Hypokalemia Impression: This requires intermittent replacement with iv riders, and is in her TPN. Now that she is on Lasix bid, monitor K and Mg daily. (6) Severe sepsis Impression: Resolved. This was secondary to perforated abdominal viscus. (7) Atrial fibrillation with RVR Impression: Resolved. She had a brief episode of Afib with RVR early on during this hospitalization b ut she has since been in a sinus rhythm. Her heart rates are stable. We are holding anticoagulation given the recent surgical intervention and the fact that her CHADS score is 0. - Current Meds Current Meds: Current Medications Generic Name Dose Route Start Last Admin Trade Name Freq PRN Reason Stop Dose Admin Acetaminophen 650 mg 08/04/21 14:01 08/12/21 23:39 Acetaminophen 325 Mg Tablet PO 650 mg Q4HR PRN Administration PAIN Albuterol 2.5 mg 08/04/21 17:26 08/17/21 11:22 Albuterol Neb 2.5 Mg/3 Ml INH 2.5 mg RTQ4H PRN Administration Wheezing Albuterol 2.5 mg 08/15/21 22:00 08/17/21 07:33 Albuterol Neb 2.5 Mg/3 Ml INH 2.5 mg TID INGA Administration Enoxaparin Sodium 40 mg 08/05/21 09:00 08/17/21 09:04 Enoxaparin 40 Mg/0.4 Ml Syringe SUBQ 40 mg DAILY INGA Administration Furosemide 40 mg 08/17/21 14:00 08/17/21 13:51 Furosemide 20 Mg/2 Ml Vial IVP 40 mg BIDDIURETIC INGA Administration Hydromorphone HCl 0.5 mg 08/10/21 20:22 08/14/21 03:20 Hydromorphone 0.5 Mg/0.5 Ml Syringe IVP 0.5 mg Q1H PRN Administration PAIN Cefepime HCl 2 gm/ Sodium 100 mls @ 200 mls/hr 08/07/21 09:00 08/17/21 09:20 Chloride IV Infused BID INGA Infusion Metronidazole 500 mg in 100 mls @ 100 mls/hr 08/07/21 15:00 08/17/21 10:13 Flagyl 500 Mg/100 Ml IV Infused Q8H INGA Infusion Multivitamins 10 ml/ TRACE 2,034.3333 mls @ 60 mls/hr 08/15/21 19:00 08/16/21 18:46 ELEMENTS 1 ml/ Potassium IV 60 mls/hr Chloride 40 meq/ Potassium TPN/PPN INGA Administration Phosphate 10 mmol/ Amino Acids /Electrolytes Protocol Vancomycin HCl 1.75 gm/ Sodium 500 mls @ 250 mls/hr 08/16/21 23:30 08/17/21 13:20 Chloride IV Infused Q12H INGA Infusion Insulin Human Regular 1 - 9 unit 08/10/21 18:00 08/17/21 11:16 Insulin Regular Human 300 Unit/3 Ml Vial SUBQ 1 unit Q6HR INGA Administration Protocol Lactulose 10 gm 08/14/21 09:00 08/17/21 09:04 Lactulose 10 Gm /15 Ml Udc PO Not Given DAILY INGA Metoclopramide HCl 5 mg 08/13/21 18:00 08/17/21 12:29 Metoclopramide 10 Mg/2 Ml Vial IVP 5 mg Q6HR INGA Administration Metoprolol Tartrate 5 mg 08/12/21 17:00 08/17/21 10:58 Metoprolol 5 Mg/5 Ml Vial IVP 5 mg Q6H INGA Administration Morphine Sulfate 2 mg 08/06/21 10:21 08/17/21 14:56 Morphine 2 Mg/Ml Carpuject IVP 2 mg Q2HR PRN Administration PAIN Pantoprazole Sodium 40 mg 08/05/21 07:00 08/17/21 06:00 Pantoprazole 40 Mg Tablet PO 40 mg QDAC INGA Administration Polyethylene Glycol 17 gm 08/16/21 21:00 08/17/21 09:00 Polyethylene Glycol 3350 17 Gm Packet PO 17 gm BID INGA Administration Sodium Chloride 10 ml 08/04/21 17:00 08/17/21 09:03 Sodium Chloride Flush 0.9% 10 Ml Syringe IVP 10 ml 0100,0900,1700 INGA Administration Sodium Chloride 10 ml 08/04/21 14:01 08/17/21 13:52 Sodium Chloride Flush 0.9% 10 Ml Syringe IVP 10 ml PRN PRN Administration NEEDED PER PROVIDER ORDERS - Lab Result Fish Bone Diagrams: 08/17/21 10:53 08/17/21 10:53 - Additional Planning My Orders: My Active Orders 08/17/21 08:47 Miscellaenous Nursing Order [RC] QSHIFT 08/17/21 11:27 RT [Oxygen Therapy] [RC] .PRN 08/17/21 14:00 FUROSEMIDE INJ 20mg VIAL [LASIX INJ 20mg VIAL] 40 mg IVP BIDDIURETIC Subjective - Subjective Patient Reports: Feeling Better (Feels like she has more energy every day. The swelling has not changed at all however.) Objective Vital Signs: Vital Signs - 24 hr 08/16/21 08/16/21 08/17/21 16:50 23:57 00:00 Temperature Heart Rate 110 H Heart Rate [ 98 Brachial] Respiratory 20 Rate Blood Pressure 134/86 H Blood Pressure 134/86 H [Left Brachial artery] Blood Pressure [Right Brachial artery] O2 Saturation 08/17/21 08/17/21 08/17/21 00:05 00:10 00:15 Temperature Heart Rate Heart Rate [ 94 89 86 Brachial] Respiratory Rate Blood Pressure Blood Pressure 131/79 H 129/66 128/80 [Left Brachial artery] Blood Pressure [Right Brachial artery] O2 Saturation 08/17/21 08/17/21 08/17/21 00:24 00:30 00:45 Temperature Heart Rate 86 Heart Rate [ 74 78 Brachial] Respiratory 18 Rate Blood Pressure Blood Pressure 127/71 126/82 H [Left Brachial artery] Blood Pressure [Right Brachial artery] O2 Saturation 08/17/21 08/17/21 08/17/21 01:00 05:34 05:35 Temperature Heart Rate Heart Rate [ 84 97 Brachial] Respiratory 18 20 Rate Blood Pressure 131/65 H Blood Pressure 125/55 L 131/65 H [Left Brachial artery] Blood Pressure [Right Brachial artery] O2 Saturation 94 94 08/17/21 08/17/21 08/17/21 05:40 05:45 05:50 Temperature Heart Rate Heart Rate [ 97 95 90 Brachial] Respiratory Rate Blood Pressure Blood Pressure 129/70 119/64 120/63 [Left Brachial artery] Blood Pressure [Right Brachial artery] O2 Saturation 08/17/21 08/17/21 08/17/21 06:05 06:20 06:35 Temperature Heart Rate Heart Rate [ 85 86 82 Brachial] Respiratory Rate Blood Pressure Blood Pressure 109/59 L 113/63 117/67 [Left Brachial artery] Blood Pressure [Right Brachial artery] O2 Saturation 08/17/21 08/17/21 08/17/21 07:33 10:58 11:03 Temperature Heart Rate 97 Heart Rate [ 82 Brachial] Respiratory 20 Rate Blood Pressure 131/69 H Blood Pressure [Left Brachial artery] Blood Pressure 112/65 [Right Brachial artery] O2 Saturation 08/17/21 08/17/21 08/17/21 11:08 11:14 11:22 Temperature Heart Rate 89 Heart Rate [ 80 87 Brachial] Respiratory 20 Rate Blood Pressure Blood Pressure [Left Brachial artery] Blood Pressure 107/92 H 117/69 [Right Brachial artery] O2 Saturation 08/17/21 16:10 Temperature 36.8 C Heart Rate Heart Rate [ 102 H Brachial] Respiratory 21 Rate Blood Pressure Blood Pressure [Left Brachial artery] Blood Pressure 124/66 [Right Brachial artery] O2 Saturation 93 Oxygen O2 Source Room air I&O (Last 24 Hrs): Intake and Output Totals x24h 08/15/21 08/16/21 08/17/21 23:59 23:59 23:59 Intake Total 3308 2711.333 1420 Output Total 2520 2286 955 Balance 788 425.333 465 General: Alert, Oriented x3 HEENT: Mucous membr. moist/pink Neck: Supple, No JVD Neuro: Alert, Non Focal Cardiovascular: Regular rate, No murmurs Respiratory: No respiratory distress, Breath sounds nml Abdomen: Soft, No tenderness Extremities: Other (4+ edema to hips and hands have 1+ edema again) - Results Results: Laboratory Results WBC 23.7 x10^3/uL (4.8-10.8) H 08/17/21 10:53 RBC 3.34 10^6/uL (4.20-5.40) L 08/17/21 10:53 Hgb 10.0 g/dL (12.0-16.0) L 08/17/21 10:53 Hct 31.1 % (37.0-47.0) L 08/17/21 10:53 MCV 93.1 fL (81.0-99.0) 08/17/21 10:53 MCH 29.9 pg (27.0-31.0) 08/17/21 10:53 MCHC 32.2 g/dL (32.0-36.0) 08/17/21 10:53 RDW 13.7 % (12.0-15.0) 08/17/21 10:53 Plt Count 701 10^3/uL (130-450) H 08/17/21 10:53 MPV 8.3 fL (7.9-10.8) 08/17/21 10:53 Neut # (Auto) Not Reportable 08/16/21 06:20 Lymph # (Auto) Not Reportable 08/16/21 06:20 [place] # (Auto) Not Reportable 08/16/21 06:20 Eos # (Auto) Not Reportable 08/16/21 06:20 Baso # (Auto) Not Reportable 08/16/21 06:20 Absolute Nucleated RBC Not Reportable 08/16/21 06:20 Total Counted 100 08/16/21 06:20 Band Neuts % (Manual) 5 % (0-10) 08/16/21 06:20 Abnorm Lymph % (Manual) 0 % 08/16/21 06:20 Metamyelocytes % 1 % (-0) H 08/16/21 06:20 Myelocytes % 1 % (-0) H 08/16/21 06:20 Nucleated RBC % Not Reportable 08/16/21 06:20 Neutrophils # (Manual) 18.5 10^3/uL (1.5-6.6) H 08/16/21 06:20 Lymphocytes # (Manual) 1.1 10^3/uL (1.5-3.5) L 08/16/21 06:20 Monocytes # (Manual) 0.9 10^3/uL (0.0-1.0) 08/16/21 06:20 Eosinophils # (Manual) 0.6 10^3/uL (0-0.7) 08/16/21 06:20 Basophils # (Manual) 0.0 10^3/uL (0-0.1) 08/16/21 06:20 Differential Comment MANUAL DIFFERENTIAL 08/16/21 06:20 WBC Morphology NORMAL APPEARANCE (NORMAL) 08/14/21 06:00 Platelet Estimate INCREASED (>450,000) (NORMAL) 08/16/21 06:20 Platelet Morphology NORMAL APPEARANCE (NORMAL) 08/14/21 06:00 RBC Morph Micro Appear 1+ HYPOCHROMASIA (NORMAL) 1+ POLYCHROMASIA (NORMAL) 08/16/21 06:20 RBC Morph Micro Appear 1+ HYPOCHROMASIA (NORMAL) 1+ POLYCHROMASIA (NORMAL) 08/16/21 06:20 VBG pH 7.424 (7.31-7.41) H 08/09/21 09:10 VBG pCO2 29.5 mmHg (41-51) L 08/09/21 09:10 VBG pO2 75.4 mmHg (25-47) H 08/09/21 09:10 VBG HCO3 18.9 mmol/L (23-28) L 08/09/21 09:10 VBG Total CO2 19.8 mmol/L (24-29) L 08/09/21 09:10 VBG O2 Saturation 95.7 % (60-80) H 08/09/21 09:10 VBG Base Excess -4.2 mmol/L (-2 - +2) L 08/09/21 09:10 Sodium 138 mmol/L (135-145) 08/17/21 10:53 Potassium 3.2 mmol/L (3.5-5.0) L 08/17/21 10:53 Chloride 99 mmol/L (101-111) L 08/17/21 10:53 Carbon Dioxide 31 mmol/L (21-32) 08/17/21 10:53 Anion Gap 8.0 (6-13) 08/17/21 10:53 BUN 16 mg/dL (6-20) 08/17/21 10:53 Creatinine 0.4 mg/dL (0.4-1.0) 08/17/21 10:53 Estimated GFR (MDRD) 159 (>89) 08/17/21 10:53 Glucose 154 mg/dL (70-100) H 08/17/21 10:53 POC Whole Bld Glucose 161 mg/dL (70 - 100) H 08/17/21 11:11 Estimat Average Glucose 114 mg/dL (70-100) H 08/10/21 04:15 Hemoglobin A1c % 5.6 % (4.27-6.07) 08/10/21 04:15 Lactic Acid 1.0 mmol/L (0.5-2.2) 08/08/21 14:59 Calcium 8.1 mg/dL (8.5-10.3) L 08/17/21 10:53 Phosphorus 2.4 mg/dL (2.5-4.6) L 08/16/21 06:20 Magnesium 1.8 mg/dL (1.7-2.8) 08/16/21 06:20 Total Bilirubin 0.3 mg/dL (0.2-1.0) 08/16/21 06:20 AST 29 IU/L (10-42) 08/16/21 06:20 ALT 20 IU/L (10-60) 08/16/21 06:20 Alkaline Phosphatase 56 IU/L (42-121) 08/16/21 06:20 Troponin I High Sens 4.4 ng/L (2.3-14.8) 08/05/21 23:25 Total Protein 4.7 g/dL (6.7-8.2) L 08/16/21 06:20 Albumin 1.5 g/dL (3.2-5.5) L 08/16/21 06:20 Globulin 3.2 g/dL (2.1-4.2) 08/16/21 06:20 Albumin/Globulin Ratio 0.5 (1.0-2.2) L 08/16/21 06:20 Prealbumin 8 mg/dL (18-45) L 08/16/21 06:20 Triglycerides 80 mg/dL (-149) 08/16/21 06:20 Lipase 18 U/L (22-51) L 08/04/21 11:10 TSH 1.65 uIU/mL (0.34-5.60) 08/06/21 04:50 Urine Color YELLOW 08/05/21 21:30 Urine Clarity CLEAR (CLEAR) 08/05/21 21:30 Urine pH 5.0 PH (5.0-7.5) 08/05/21 21:30 Ur Specific [place] >=1.030 (1.002-1.030) H 08/05/21 21:30 Urine Protein 30 mg/dL (NEGATIVE) H 08/05/21 21:30 Urine Glucose (UA) NEGATIVE mg/dL (NEGATIVE) 08/05/21 21:30 Urine Ketones TRACE mg/dL (NEGATIVE) 08/05/21 21:30 Urine Occult Blood NEGATIVE (NEGATIVE) 08/05/21 21:30 Urine Nitrite NEGATIVE (NEGATIVE) 08/05/21 21:30 Urine Bilirubin NEGATIVE (NEGATIVE) 08/05/21 21:30 Urine Urobilinogen 1 (NORMAL) E.U./dL (NORMAL) 08/05/21 21:30 Ur Leukocyte Esterase NEGATIVE (NEGATIVE) 08/05/21 21:30 Urine RBC None Seen /HPF (0-5) 08/05/21 21:30 Urine WBC 0-3 /HPF (0-5) 08/05/21 21:30 Ur Squamous Epith Cells FEW Squamous (<= Few) 08/05/21 21:30 Amorphous Sediment Few /LPF 08/05/21 21:30 Urine Bacteria Rare /HPF (None Seen) 08/05/21 21:30 Urine Culture Comments NOT INDICATED 08/05/21 21:30 Nasal Adenovirus (PCR) NOT DETECTED 08/04/21 13:20 Nasal B. parapertussis DNA (PCR) NOT DETECTED 08/04/21 13:20 Nasal Coronavir 229E PCR NOT DETECTED 08/04/21 13:20 Nasal Coronavir HKU1 PCR NOT DETECTED 08/04/21 13:20 Nasal Coronavir NL63 PCR NOT DETECTED 08/04/21 13:20 Nasal Coronavir OC43 PCR NOT DETECTED 08/04/21 13:20 Nasal Enterovir/Rhinovir PCR NOT DETECTED 08/04/21 13:20 Nasal Influenza B PCR NOT DETECTED 08/04/21 13:20 Nasal Influenza A PCR NOT DETECTED 08/04/21 13:20 Nasal Parainfluen 1 PCR NOT DETECTED 08/04/21 13:20 Nasal Parainfluen 2 PCR NOT DETECTED 08/04/21 13:20 Nasal Parainfluen 3 PCR NOT DETECTED 08/04/21 13:20 Nasal Parainfluen 4 PCR NOT DETECTED 08/04/21 13:20 Nasal RSV (PCR) NOT DETECTED 08/04/21 13:20 Nasal B.pertussis DNA PCR NOT DETECTED 08/04/21 13:20 Nasal C.pneumoniae (PCR) NOT DETECTED 08/04/21 13:20 Elliot Human Metapneumo PCR NOT DETECTED 08/04/21 13:20 Nasal M.pneumoniae (PCR) NOT DETECTED 08/04/21 13:20 Nasal SARS-CoV-2 (PCR) NOT DETECTED 08/04/21 13:20 Last Dose Date 08/16/21 08/16/21 10:15 Last Dose Time 00:33 08/16/21 10:15 Vancomycin Trough 11.6 ug/mL (10.0-20.0) 08/16/21 10:15 Sepsis Event Note (H) - Evaluation Current Stage of Sepsis: Severe sepsis Possible source of Sepsis: positive: GI tract/intra-abdominal - Sepsis Criteria Sepsis Criteria: Recorded Heart Rate greater than 90 bpm, WBC count greater than 10% bands, WBC count greater than 12,000 or less than 4000, Metabolic: lactate > 2 mmol/L
[2021-08-17] MEDS: TRACE ELEMENTS IV SCH ×5 (19:33)
[2021-08-17] MEDS: TPN IV SCH ×5 (19:33)
[2021-08-17] MEDS: [UNRECOGNIZED DRUG - OTHER] IV SCH ×5 (19:33)
[2021-08-17] MEDS: MULTIVITAMIN IV SCH ×5 (19:33)
[2021-08-18] MEDS: INSULIN REGULAR HUMAN 300 UNIT/3 ML VIAL SUBQ SCH ×4 (00:34→18:45)
[2021-08-18] MEDS: SODIUM CHLORIDE FLUSH 0.9% 10 ML SYRINGE IVP SCH ×4 (00:36→23:57)
[2021-08-18] MEDS: metroNIDAZOLE 500 MG/100 ML 500 MG/100 ML BAG IV SCH ×3 (01:52→18:45)
[2021-08-18] MEDS: ALBUTEROL NEB 2.5 MG/3 ML INH SCH ×3 (04:57→21:29)
[2021-08-18] MEDS: METOPROLOL 5 MG/5 ML VIAL IVP SCH ×4 (05:40→23:56)
[2021-08-18] MEDS: METOCLOPRAMIDE 10 MG/2 ML VIAL IVP SCH ×4 (05:41→23:57)
[2021-08-18] MEDS: FUROSEMIDE 20 MG/2 ML VIAL IVP SCH ×2 (05:42→14:10)
[2021-08-18] MEDS: PANTOPRAZOLE 40 MG TABLET PO SCH (06:01)
[2021-08-18 07:13] LABS: BASOPHILS % (AUTO) 0.5 %; EOSINOPHILS % (AUTO) 0.2 %; HCT - HEMATOCRIT 32.1 % (37.0-47.0); HGB - HEMOGLOBIN 10.4 g/dL (12.0-16.0); LYMPHOCYTES % (AUTO) 3.8 %; MEAN CORPUSCULAR HEMOGLOBIN 30.3 pg (27.0-31.0); MEAN CORPUSCULAR HGB CONC 32.4 g/dL (32.0-36.0); MEAN CORPUSCULAR VOLUME 93.6 fL (81.0-99.0); MEAN PLATELET VOLUME 8.7 fL (7.9-10.8); MONOCYTES % (AUTO) 4.5 %; NEUTROPHILS % (AUTO) 88.7 %; PLT - PLATELET COUNT 730 10^3/uL (130-450); RED BLOOD COUNT 3.43 10^6/uL (4.20-5.40); RED CELL DISTRIBUTION WIDTH 13.8 % (12.0-15.0); WHITE BLOOD COUNT 21.9 x10^3/uL (4.8-10.8)
[2021-08-18 07:22] LABS: CALCIUM 8.3 mg/dL (8.5-10.3); CREATININE 0.4 mg/dL (0.4-1.0); POTASSIUM 2.9 mmol/L (3.5-5.0)
[2021-08-18 07:30] LABS: ABNORMAL LYMPHS % (MANUAL) 0 %; BAND NEUTROPHILS % (MANUAL) 0 %
[2021-08-18 07:48] LABS: DIFFERENTIAL COMMENT MANUAL DIFFERENTIAL; LYMPHOCYTES # (MANUAL) 1.3 10^3/uL (1.5-3.5); LYMPHOCYTES % (MANUAL) 6 %; MONOCYTES # (MANUAL) 1.3 10^3/uL (0.0-1.0); NEUTROPHILS # (MANUAL) 19.3 10^3/uL (1.5-6.6); PLATELET ESTIMATE, MANUAL INCREASED (>450,000) (NORMAL); PLATELET MORPHOLOGY NORMAL APPEARANCE (NORMAL); RBC MORPHOLOGY (MULTIPLE) NORMAL APPEARANCE (NORMAL)
--- NOTE | 2021-08-18 08:17 | PROVIDER PROGRESS NOTE ---
Subjective - General Admit Date: 08/04/21 Procedure Date: 08/09/21 Post Op Days: 9 Procedure Performed: Laparotomy with Kenneth procedure - Review of Systems Wound/Incisions: positive: Other (wound vac in place) Drain Type: Mo Drain Output Description: Serous General: positive: Weakness HEENT: positive: No symptoms Pulmonary: negative: Shortness of breath Cardiovascular: positive: No symptoms Gastrointestinal: positive: Abdominal pain. negative: Nausea, Vomiting Genitourinary: positive: No symptoms Skin: positive: Other (Still frustrated about the swelling) All Other Systems: positive: Reviewed and negative - Other Other Information/Narrative: NAEO. Afebrile and HDS. Feeling better today after extra nebs prn yesterday. Pain controlled. Started having ostomy output of firm stool. Objective - Patient Data Reviewed Vital Signs: Yes Vital Signs: Vital Signs x48h Temp Pulse Pulse Resp BP BP Pulse Ox 08/18/21 07:40 37.1 C 99 18 120/64 93 08/18/21 05:40 134/71 H 08/18/21 04:58 94 20 Weight: Weight 08/16/21 08/17/21 08/18/21 23:59 23:59 23:59 Weight (kg) 95 kg Intake & Output: Intake and Output Totals x24h 08/16/21 08/17/21 08/18/21 23:59 23:59 23:59 Intake Total 2711.333 3107 600 Output Total 2286 2655 20 Balance 425.333 452 580 - Lab Results Lab Results: 08/18/21 06:35 08/18/21 06:35 Other Lab Results: Lab Results x24hrs 08/18/21 08/18/21 08/18/21 Range/Units 06:35 06:35 05:37 WBC 21.9 H (4.8-10.8) x10^3/uL RBC 3.43 L (4.20-5.40) 10^6/uL Hgb 10.4 L (12.0-16.0) g/dL Hct 32.1 L (37.0-47.0) % MCV 93.6 (81.0-99.0) fL MCH 30.3 (27.0-31.0) pg MCHC 32.4 (32.0-36.0) g/dL RDW 13.8 (12.0-15.0) % Plt Count 730 H (130-450) 10^3/uL MPV 8.7 (7.9-10.8) fL Neut # (Auto) Not Reportable Lymph # (Auto) Not Reportable [place] # (Auto) Not Reportable Eos # (Auto) Not Reportable Baso # (Auto) Not Reportable Absolute Nucleated RBC Not Reportable Total Counted 100 Band Neuts % (Manual) 0 (0 - 10) % Abnorm Lymph % (Manual) 0 % Nucleated RBC % Not Reportable Neutrophils # (Manual) 19.3 H (1.5-6.6) 10^3/uL Lymphocytes # (Manual) 1.3 L (1.5-3.5) 10^3/uL Monocytes # (Manual) 1.3 H (0.0-1.0) 10^3/uL Eosinophils # (Manual) 0.0 (0-0.7) 10^3/uL Basophils # (Manual) 0.0 (0-0.1) 10^3/uL Differential Comment MANUAL DIFFERENTIAL Platelet Estimate INCREASED (>450,000) (NORMAL) Platelet Morphology NORMAL APPEARANCE (NORMAL) RBC Morph Micro Appear NORMAL APPEARANCE (NORMAL) Sodium 137 (135-145) mmol/L Potassium 2.9 L (3.5-5.0) mmol/L Chloride 98 L (101-111) mmol/L Carbon Dioxide 30 (21-32) mmol/L Anion Gap 9.0 (6-13) BUN 16 (6-20) mg/dL Creatinine 0.4 (0.4-1.0) mg/dL Estimated GFR (MDRD) 159 (>89) Glucose 149 H (70-100) mg/dL POC Whole Bld Glucose 129 H (70 - 100) mg/dL Calcium 8.3 L (8.5-10.3) mg/dL 08/18/21 08/17/21 08/17/21 Range/Units 00:10 18:15 11:11 WBC (4.8-10.8) x10^3/uL RBC (4.20-5.40) 10^6/uL Hgb (12.0-16.0) g/dL Hct (37.0-47.0) % MCV (81.0-99.0) fL MCH (27.0-31.0) pg MCHC (32.0-36.0) g/dL RDW (12.0-15.0) % Plt Count (130-450) 10^3/uL MPV (7.9-10.8) fL Neut # (Auto) Lymph # (Auto) [place] # (Auto) Eos # (Auto) Baso # (Auto) Absolute Nucleated RBC Total Counted Band Neuts % (Manual) (0 - 10) % Abnorm Lymph % (Manual) % Nucleated RBC % Neutrophils # (Manual) (1.5-6.6) 10^3/uL Lymphocytes # (Manual) (1.5-3.5) 10^3/uL Monocytes # (Manual) (0.0-1.0) 10^3/uL Eosinophils # (Manual) (0-0.7) 10^3/uL Basophils # (Manual) (0-0.1) 10^3/uL Differential Comment Platelet Estimate (NORMAL) Platelet Morphology (NORMAL) RBC Morph Micro Appear (NORMAL) Sodium (135-145) mmol/L Potassium (3.5-5.0) mmol/L Chloride (101-111) mmol/L Carbon Dioxide (21-32) mmol/L Anion Gap (6-13) BUN (6-20) mg/dL Creatinine (0.4-1.0) mg/dL Estimated GFR (MDRD) (>89) Glucose (70-100) mg/dL POC Whole Bld Glucose 144 H 131 H 161 H (70 - 100) mg/dL Calcium (8.5-10.3) mg/dL 08/17/21 08/17/21 Range/Units 10:53 10:53 WBC 23.7 H (4.8-10.8) x10^3/uL RBC 3.34 L (4.20-5.40) 10^6/uL Hgb 10.0 L (12.0-16.0) g/dL Hct 31.1 L (37.0-47.0) % MCV 93.1 (81.0-99.0) fL MCH 29.9 (27.0-31.0) pg MCHC 32.2 (32.0-36.0) g/dL RDW 13.7 (12.0-15.0) % Plt Count 701 H (130-450) 10^3/uL MPV 8.3 (7.9-10.8) fL Neut # (Auto) Lymph # (Auto) [place] # (Auto) Eos # (Auto) Baso # (Auto) Absolute Nucleated RBC Total Counted Band Neuts % (Manual) (0 - 10) % Abnorm Lymph % (Manual) % Nucleated RBC % Neutrophils # (Manual) (1.5-6.6) 10^3/uL Lymphocytes # (Manual) (1.5-3.5) 10^3/uL Monocytes # (Manual) (0.0-1.0) 10^3/uL Eosinophils # (Manual) (0-0.7) 10^3/uL Basophils # (Manual) (0-0.1) 10^3/uL Differential Comment Platelet Estimate (NORMAL) Platelet Morphology (NORMAL) RBC Morph Micro Appear (NORMAL) Sodium 138 (135-145) mmol/L Potassium 3.2 L (3.5-5.0) mmol/L Chloride 99 L (101-111) mmol/L Carbon Dioxide 31 (21-32) mmol/L Anion Gap 8.0 (6-13) BUN 16 (6-20) mg/dL Creatinine 0.4 (0.4-1.0) mg/dL Estimated GFR (MDRD) 159 (>89) Glucose 154 H (70-100) mg/dL POC Whole Bld Glucose (70 - 100) mg/dL Calcium 8.1 L (8.5-10.3) mg/dL - Current Medications Current Medications: Current Medications Generic Name Dose Route Start Last Admin Trade Name [place] PRN Reason Stop Dose Admin Acetaminophen 650 mg 08/04/21 14:01 08/12/21 23:39 Acetaminophen 325 Mg Tablet PO 650 mg Q4HR PRN Administration PAIN Albuterol 2.5 mg 08/04/21 17:26 08/17/21 11:22 Albuterol Neb 2.5 Mg/3 Ml INH 2.5 mg RTQ4H PRN Administration Wheezing Albuterol 2.5 mg 08/15/21 22:00 08/18/21 04:57 Albuterol Neb 2.5 Mg/3 Ml INH 2.5 mg TID INGA Administration Enoxaparin Sodium 40 mg 08/05/21 09:00 08/17/21 09:04 Enoxaparin 40 Mg/0.4 Ml Syringe SUBQ 40 mg DAILY INGA Administration Furosemide 40 mg 08/17/21 14:00 08/18/21 05:42 Furosemide 20 Mg/2 Ml Vial IVP 40 mg BIDDIURETIC INGA Administration Hydromorphone HCl 0.5 mg 08/10/21 20:22 08/14/21 03:20 Hydromorphone 0.5 Mg/0.5 Ml Syringe IVP 0.5 mg Q1H PRN Administration PAIN Cefepime HCl 2 gm/ Sodium 100 mls @ 200 mls/hr 08/07/21 09:00 08/17/21 22:07 Chloride IV Infused BID INGA Infusion Metronidazole 500 mg in 100 mls @ 100 mls/hr 08/07/21 15:00 08/18/21 02:55 Flagyl 500 Mg/100 Ml IV Infused Q8H INGA Infusion Multivitamins 10 ml/ TRACE 2,034.3333 mls @ 60 mls/hr 08/15/21 19:00 08/17/21 19:33 ELEMENTS 1 ml/ Potassium IV 60 mls/hr Chloride 40 meq/ Potassium TPN/PPN INGA Administration Phosphate 10 mmol/ Amino Acids /Electrolytes Protocol Vancomycin HCl 1.75 gm/ Sodium 500 mls @ 250 mls/hr 08/16/21 23:30 08/18/21 02:04 Chloride IV Infused Q12H INGA Infusion Insulin Human Regular 1 - 9 unit 08/10/21 18:00 08/18/21 05:41 Insulin Regular Human 300 Unit/3 Ml Vial SUBQ Not Given Q6HR COUNTS INCLUDE 234 BEDS AT THE [facility] Protocol Lactulose 10 gm 08/14/21 09:00 08/17/21 09:04 Lactulose 10 Gm /15 Ml Udc PO Not Given DAILY INGA Metoclopramide HCl 5 mg 08/13/21 18:00 08/18/21 05:41 Metoclopramide 10 Mg/2 Ml Vial IVP 5 mg Q6HR INGA Administration Metoprolol Tartrate 5 mg 08/12/21 17:00 08/18/21 05:40 Metoprolol 5 Mg/5 Ml Vial IVP 5 mg Q6H INGA Administration Morphine Sulfate 2 mg 08/06/21 10:21 08/17/21 14:56 Morphine 2 Mg/Ml Carpuject IVP 2 mg Q2HR PRN Administration PAIN Pantoprazole Sodium 40 mg 08/05/21 07:00 08/18/21 06:01 Pantoprazole 40 Mg Tablet PO 40 mg QDAC INGA Administration Polyethylene Glycol 17 gm 08/16/21 21:00 08/17/21 21:22 Polyethylene Glycol 3350 17 Gm Packet PO 17 gm BID INGA Administration Sodium Chloride 10 ml 08/04/21 17:00 08/18/21 00:36 Sodium Chloride Flush 0.9% 10 Ml Syringe IVP 10 ml 0100,0900,1700 INGA Administration Sodium Chloride 10 ml 08/04/21 14:01 08/17/21 13:52 Sodium Chloride Flush 0.9% 10 Ml Syringe IVP 10 ml PRN PRN Administration NEEDED PER PROVIDER ORDERS - Physical Exam Wound/Incisions: positive: Other (wound vac in place to good suction) General Appearance: positive: No acute distress, Alert Eyes Bilateral: positive: EOMI Respiratory: positive: No respiratory distress Cardiovascular: positive: Regular rate & rhythm Abdomen: positive: Other (soft, non-distended, appropriately TTP around incisions, no rebound or guarding; drains stripped, cloudy/purulent; ostomy pink with firm stool in the bag) Skin: positive: Warm, Dry Extremities: positive: Pedal edema Neurologic/Psychiatric: positive: Oriented x3, Mood/affect nml ABX Reporting Has patient been on IV antibiotics over the past 48 hours?: Yes Impression/Plan - Problem List Problem List: 66 yo F s/p Kenneth's for sigmoid perf 2/2 constipation. Seems to be trending in the right direction. Breathing better with more frequent nebs. Lasix helping. Bowel function returning. - Continue pain reg - continue abx reg (cefepime/flagyl/vanco) - WBC stable low 20s today, afebrile - continue bowel reg; ostomy starting to function - continue sips/chips and TPN, serial nutrition labs; K low today, likely 2/2 diuresis, being repleted in TPN - continue RT tx and nebs, continue PT - SCDs and Lovenox - appreciate Med assistance Ariel Wilde MD General Surgery
[2021-08-18] MEDS: CEFEPIME 2 GM in SODIUM CHLORIDE 0.9% MINIBAG 100 ML IV SCH ×2 (08:59→21:57)
[2021-08-18] MEDS: LACTULOSE 10 GM /15 ML UDC PO SCH (09:22)
[2021-08-18] MEDS: polyethylene glycoL 3350 17 GM PACKET PO SCH ×2 (09:55→21:58)
[2021-08-18] MEDS: POTASSIUM CHLOR 10 MEQ/100 ML 10 MEQ/100 ML BAG IV SCH ×6 (09:55→15:15)
[2021-08-18] MEDS: ENOXAPARIN 40 MG/0.4 ML SYRINGE SUBQ SCH (09:55)
[2021-08-18] MEDS: VANCOMYCIN INJ 1.75 GM in SODIUM CHLORIDE 0.9% 500 ML IV SCH ×2 (10:53→23:57)
[2021-08-18] MEDS: ALBUTEROL NEB 2.5 MG/3 ML INH PRN ×2 (13:43→18:02)
[2021-08-18] MEDS: MORPHINE 2 MG/ML CARPUJECT IVP PRN (15:35)
[2021-08-18] MEDS: TRACE ELEMENTS IV SCH ×5 (18:47)
[2021-08-18] MEDS: MULTIVITAMIN IV SCH ×5 (18:47)
[2021-08-18] MEDS: [UNRECOGNIZED DRUG - OTHER] IV SCH ×5 (18:47)
[2021-08-18] MEDS: TPN IV SCH ×5 (18:47)
--- NOTE | 2021-08-18 19:08 | PROVIDER PROGRESS NOTE ---
Assessment/Plan - Problem List (1) Perforated abdominal viscus Assessment/Plan: This was the cause of her sepsis. She had a perforated sigmoid colon with purulent ascitic fluid found. Over 1.5 L was drained and cultures are growing E. coli. We had resumed her iv vancomycin, when WBC worsend and continued the iv cefepime and Flagyl IV. Her WBC and L shift are slowly improving. Dr Zhoa suspects she has Enterococcus infection. Continue iv Vanco, Cefepime and Flagyl, as per Gen Surg (2) Status post colostomy Impression: She had a colectomy with diverting colostomy and Funk's pouch. She has a postoperative ileus. She remains n.p.o. except meds and is on TPN. Dr Zhao placed a wound vac. Will replace K and Phos in TPN Continue iv antibx, pain meds prn. Follow BMP, Mg and PO4 daily (3) Anasarca Impression: She has ongoing anasarca which is secondary to the IV fluids she received for severe sepsis. Her Echocardiogram showed no evidence of heart failure and leg duplex doppler was negative for DVT. She was 18 L pos since admission. Her fluid status had been (+) daily, even after iv Lasix was started several days ago. We already increased the iv Lasix dose from daily to biddiuretic, and decreased her iv TPN from 70 cc/hr to 60 cc/hr. We increased the dose from 20 mg to 40 mg Continue with leg elevation when OOB and promote using the ordered SCDs. We ordered scheduled nebs tid plus prn q4h, since these help her, she reported. Follow daily weight and I's and O's, and daily BMP & Mg. (4) Hyperglycemia Impression: This continues and is likely secondary to the dextrose in her PPN. We have adjusted the amount of dextrose and her blood glucose is now in the acceptable range. Her A1c was within normal limits. (5) Hypokalemia Impression: This requires intermittent replacement with iv riders, and is in her TPN. Now that she is on Lasix bid, monitor K and Mg daily. (6) Severe sepsis Impression: Resolved. This was secondary to perforated abdominal viscus. (7) Atrial fibrillation with RVR Impression: Resolved. She had a brief episode of Afib with RVR early on during this hospitalization but she has since been in a sinus rhythm. Her heart rates are stable. We are holding anticoagulation given the recent surgical intervention and the fact that her CHADS score is 0. - Current Meds Current Meds: Current Medications Generic Name Dose Route Start Last Admin Trade Name Freq PRN Reason Stop Dose Admin Acetaminophen 650 mg 08/04/21 14:01 08/12/21 23:39 Acetaminophen 325 Mg Tablet PO 650 mg Q4HR PRN Administration PAIN Albuterol 2.5 mg 08/04/21 17:26 08/18/21 18:02 Albuterol Neb 2.5 Mg/3 Ml INH 2.5 mg RTQ4H PRN Administration Wheezing Albuterol 2.5 mg 08/15/21 22:00 08/18/21 09:35 Albuterol Neb 2.5 Mg/3 Ml INH 2.5 mg TID INGA Administration Enoxaparin Sodium 40 mg 08/05/21 09:00 08/18/21 09:55 Enoxaparin 40 Mg/0.4 Ml Syringe SUBQ 40 mg DAILY INGA Administration Furosemide 40 mg 08/17/21 14:00 08/18/21 14:10 Furosemide 20 Mg/2 Ml Vial IVP 40 mg BIDDIURETIC INGA Administration Hydromorphone HCl 0.5 mg 08/10/21 20:22 08/14/21 03:20 Hydromorphone 0.5 Mg/0.5 Ml Syringe IVP 0.5 mg Q1H PRN Administration PAIN Cefepime HCl 2 gm/ Sodium 100 mls @ 200 mls/hr 08/07/21 09:00 08/18/21 09:30 Chloride IV Infused BID INGA Infusion Metronidazole 500 mg in 100 mls @ 100 mls/hr 08/07/21 15:00 08/18/21 18:45 Flagyl 500 Mg/100 Ml IV 100 mls/hr Q8H INGA Administration Multivitamins 10 ml/ TRACE 2,034.3333 mls @ 60 mls/hr 08/15/21 19:00 08/18/21 18:47 ELEMENTS 1 ml/ Potassium IV 60 mls/hr Chloride 40 meq/ Potassium TPN/PPN INGA Administration Phosphate 10 mmol/ Amino Acids /Electrolytes Protocol Vancomycin HCl 1.75 gm/ Sodium 500 mls @ 250 mls/hr 08/16/21 23:30 08/18/21 13:00 Chloride IV Infused Q12H INGA Infusion Insulin Human Regular 1 - 9 unit 08/10/21 18:00 08/18/21 18:45 Insulin Regular Human 300 Unit/3 Ml Vial SUBQ 1 unit Q6HR INGA Administration Protocol Lactulose 10 gm 08/14/21 09:00 08/18/21 09:22 Lactulose 10 Gm /15 Ml Udc PO Not Given DAILY INGA Metoclopramide HCl 5 mg 08/13/21 18:00 08/18/21 18:46 Metoclopramide 10 Mg/2 Ml Vial IVP 5 mg Q6HR INGA Administration Metoprolol Tartrate 5 mg 08/12/21 17:00 08/18/21 18:44 Metoprolol 5 Mg/5 Ml Vial IVP 5 mg Q6H INGA Administration Morphine Sulfate 2 mg 08/06/21 10:21 08/18/21 15:35 Morphine 2 Mg/Ml Carpuject IVP 2 mg Q2HR PRN Administration PAIN Pantoprazole Sodium 40 mg 08/05/21 07:00 08/18/21 06:01 Pantoprazole 40 Mg Tablet PO 40 mg QDAC INGA Administration Polyethylene Glycol 17 gm 08/16/21 21:00 08/18/21 09:55 Polyethylene Glycol 3350 17 Gm Packet PO 17 gm BID INGA Administration Sodium Chloride 10 ml 08/04/21 17:00 08/18/21 15:35 Sodium Chloride Flush 0.9% 10 Ml Syringe IVP 10 ml 0100,0900,1700 INGA Administration Sodium Chloride 10 ml 08/04/21 14:01 08/17/21 13:52 Sodium Chloride Flush 0.9% 10 Ml Syringe IVP 10 ml PRN PRN Administration NEEDED PER PROVIDER ORDERS - Lab Result Fish Bone Diagrams: 08/19/21 05:25 08/19/21 05:25 - Additional Planning My Orders: My Active Orders 08/18/21 15:55 Miscellaenous Nursing Order [RC] ONCE Subjective - Subjective Patient Reports: Feeling Better Nursing Reports: Other (Very anxious, focused on timing of her nebs, afraid to move, wanted Pur-wick, but then agreed to have it removed and will use bedside commode.) Objective Vital Signs: Vital Signs - 24 hr 08/17/21 08/17/21 08/18/21 23:26 23:51 04:58 Temperature Heart Rate 98 94 Heart Rate [ Brachial] Heart Rate [ Monitoring electrodes] Respiratory 20 20 Rate Blood Pressure 127/71 Blood Pressure [Right Brachial artery] O2 Saturation 08/18/21 08/18/21 08/18/21 05:40 07:40 09:15 Temperature 37.1 C Heart Rate 81 Heart Rate [ 99 Brachial] Heart Rate [ Monitoring electrodes] Respiratory 18 18 Rate Blood Pressure 134/71 H Blood Pressure 120/64 [Right Brachial artery] O2 Saturation 93 08/18/21 08/18/21 08/18/21 10:58 11:06 11:11 Temperature Heart Rate Heart Rate [ 92 89 Brachial] Heart Rate [ Monitoring electrodes] Respiratory Rate Blood Pressure 117/59 L Blood Pressure 103/61 106/54 L [Right Brachial artery] O2 Saturation 08/18/21 08/18/21 08/18/21 11:16 13:43 16:21 Temperature 37.2 C Heart Rate 101 H Heart Rate [ 92 105 H Brachial] Heart Rate [ Monitoring electrodes] Respiratory 20 20 Rate Blood Pressure Blood Pressure 108/59 L 116/67 [Right Brachial artery] O2 Saturation 95 08/18/21 08/18/21 17:57 18:03 Temperature Heart Rate 102 H Heart Rate [ Brachial] Heart Rate [ 100 Monitoring electrodes] Respiratory 20 20 Rate Blood Pressure Blood Pressure [Right Brachial artery] O2 Saturation 92 Oxygen O2 Source Room air I&O (Last 24 Hrs): Intake and Output Totals x24h 08/16/21 08/17/21 08/18/21 23:59 23:59 23:59 Intake Total 2711.333 3107 3290.667 Output Total 2286 2655 445 Balance 425.060 916 6767.667 General: Alert, Oriented x3 HEENT: Mucous membr. moist/pink Neck: Supple, No JVD Neuro: Alert, Non Focal Cardiovascular: Regular rate, No murmurs Respiratory: No respiratory distress, Wheezes (scattered) Abdomen: Soft, Other (Obese) Extremities: Other (4+ edema to hips and 1+ edema of hands again present. She cannot bend her knees to walk, due to anasarca.) - Results Results: Laboratory Results WBC 21.9 x10^3/uL (4.8-10.8) H 08/18/21 06:35 RBC 3.43 10^6/uL (4.20-5.40) L 08/18/21 06:35 Hgb 10.4 g/dL (12.0-16.0) L 08/18/21 06:35 Hct 32.1 % (37.0-47.0) L 08/18/21 06:35 MCV 93.6 fL (81.0-99.0) 08/18/21 06:35 MCH 30.3 pg (27.0-31.0) 08/18/21 06:35 MCHC 32.4 g/dL (32.0-36.0) 08/18/21 06:35 RDW 13.8 % (12.0-15.0) 08/18/21 06:35 Plt Count 730 10^3/uL (130-450) H 08/18/21 06:35 MPV 8.7 fL (7.9-10.8) 08/18/21 06:35 Neut # (Auto) Not Reportable 08/18/21 06:35 Lymph # (Auto) Not Reportable 08/18/21 06:35 [place] # (Auto) Not Reportable 08/18/21 06:35 Eos # (Auto) Not Reportable 08/18/21 06:35 Baso # (Auto) Not Reportable 08/18/21 06:35 Absolute Nucleated RBC Not Reportable 08/18/21 06:35 Total Counted 100 08/18/21 06:35 Band Neuts % (Manual) 0 % (0-10) 08/18/21 06:35 Abnorm Lymph % (Manual) 0 % 08/18/21 06:35 Metamyelocytes % 1 % (-0) H 08/16/21 06:20 Myelocytes % 1 % (-0) H 08/16/21 06:20 Nucleated RBC % Not Reportable 08/18/21 06:35 Neutrophils # (Manual) 19.3 10^3/uL (1.5-6.6) H 08/18/21 06:35 Lymphocytes # (Manual) 1.3 10^3/uL (1.5-3.5) L 08/18/21 06:35 Monocytes # (Manual) 1.3 10^3/uL (0.0-1.0) H 08/18/21 06:35 Eosinophils # (Manual) 0.0 10^3/uL (0-0.7) 08/18/21 06:35 Basophils # (Manual) 0.0 10^3/uL (0-0.1) 08/18/21 06:35 Differential Comment MANUAL DIFFERENTIAL 08/18/21 06:35 WBC Morphology NORMAL APPEARANCE (NORMAL) 08/14/21 06:00 Platelet Estimate INCREASED (>450,000) (NORMAL) 08/18/21 06:35 Platelet Morphology NORMAL APPEARANCE (NORMAL) 08/18/21 06:35 RBC Morph Micro Appear NORMAL APPEARANCE (NORMAL) 08/18/21 06:35 VBG pH 7.424 (7.31-7.41) H 08/09/21 09:10 VBG pCO2 29.5 mmHg (41-51) L 08/09/21 09:10 VBG pO2 75.4 mmHg (25-47) H 08/09/21 09:10 VBG HCO3 18.9 mmol/L (23-28) L 08/09/21 09:10 VBG Total CO2 19.8 mmol/L (24-29) L 08/09/21 09:10 VBG O2 Saturation 95.7 % (60-80) H 08/09/21 09:10 VBG Base Excess -4.2 mmol/L (-2 - +2) L 08/09/21 09:10 Sodium 137 mmol/L (135-145) 08/18/21 06:35 Potassium 3.5 mmol/L (3.5-5.0) 08/18/21 17:50 Chloride 98 mmol/L (101-111) L 08/18/21 06:35 Carbon Dioxide 30 mmol/L (21-32) 08/18/21 06:35 Anion Gap 9.0 (6-13) 08/18/21 06:35 BUN 16 mg/dL (6-20) 08/18/21 06:35 Creatinine 0.4 mg/dL (0.4-1.0) 08/18/21 06:35 Estimated GFR (MDRD) 159 (>89) 08/18/21 06:35 Glucose 149 mg/dL (70-100) H 08/18/21 06:35 POC Whole Bld Glucose 155 mg/dL (70 - 100) H 08/18/21 18:13 Estimat Average Glucose 114 mg/dL (70-100) H 08/10/21 04:15 Hemoglobin A1c % 5.6 % (4.27-6.07) 08/10/21 04:15 Lactic Acid 1.0 mmol/L (0.5-2.2) 08/08/21 14:59 Calcium 8.3 mg/dL (8.5-10.3) L 08/18/21 06:35 Phosphorus 2.4 mg/dL (2.5-4.6) L 08/16/21 06:20 Magnesium 1.8 mg/dL (1.7-2.8) 08/16/21 06:20 Total Bilirubin 0.3 mg/dL (0.2-1.0) 08/16/21 06:20 AST 29 IU/L (10-42) 08/16/21 06:20 ALT 20 IU/L (10-60) 08/16/21 06:20 Alkaline Phosphatase 56 IU/L (42-121) 08/16/21 06:20 Troponin I High Sens 4.4 ng/L (2.3-14.8) 08/05/21 23:25 Total Protein 4.7 g/dL (6.7-8.2) L 08/16/21 06:20 Albumin 1.5 g/dL (3.2-5.5) L 08/16/21 06:20 Globulin 3.2 g/dL (2.1-4.2) 08/16/21 06:20 Albumin/Globulin Ratio 0.5 (1.0-2.2) L 08/16/21 06:20 Prealbumin 8 mg/dL (18-45) L 08/16/21 06:20 Triglycerides 80 mg/dL (-149) 08/16/21 06:20 Lipase 18 U/L (22-51) L 08/04/21 11:10 TSH 1.65 uIU/mL (0.34-5.60) 08/06/21 04:50 Urine Color YELLOW 08/05/21 21:30 Urine Clarity CLEAR (CLEAR) 08/05/21 21:30 Urine pH 5.0 PH (5.0-7.5) 08/05/21 21:30 Ur Specific [place] >=1.030 (1.002-1.030) H 08/05/21 21:30 Urine Protein 30 mg/dL (NEGATIVE) H 08/05/21 21:30 Urine Glucose (UA) NEGATIVE mg/dL (NEGATIVE) 08/05/21 21:30 Urine Ketones TRACE mg/dL (NEGATIVE) 08/05/21 21:30 Urine Occult Blood NEGATIVE (NEGATIVE) 08/05/21 21:30 Urine Nitrite NEGATIVE (NEGATIVE) 08/05/21 21:30 Urine Bilirubin NEGATIVE (NEGATIVE) 08/05/21 21:30 Urine Urobilinogen 1 (NORMAL) E.U./dL (NORMAL) 08/05/21 21:30 Ur Leukocyte Esterase NEGATIVE (NEGATIVE) 08/05/21 21:30 Urine RBC None Seen /HPF (0-5) 08/05/21 21:30 Urine WBC 0-3 /HPF (0-5) 08/05/21 21:30 Ur Squamous Epith Cells FEW Squamous (<= Few) 08/05/21 21:30 Amorphous Sediment Few /LPF 08/05/21 21:30 Urine Bacteria Rare /HPF (None Seen) 08/05/21 21:30 Urine Culture Comments NOT INDICATED 08/05/21 21:30 Nasal Adenovirus (PCR) NOT DETECTED 08/04/21 13:20 Nasal B. parapertussis DNA (PCR) NOT DETECTED 08/04/21 13:20 Nasal Coronavir 229E PCR NOT DETECTED 08/04/21 13:20 Nasal Coronavir HKU1 PCR NOT DETECTED 08/04/21 13:20 Nasal Coronavir NL63 PCR NOT DETECTED 08/04/21 13:20 Nasal Coronavir OC43 PCR NOT DETECTED 08/04/21 13:20 Nasal Enterovir/Rhinovir PCR NOT DETECTED 08/04/21 13:20 Nasal Influenza B PCR NOT DETECTED 08/04/21 13:20 Nasal Influenza A PCR NOT DETECTED 08/04/21 13:20 Nasal Parainfluen 1 PCR NOT DETECTED 08/04/21 13:20 Nasal Parainfluen 2 PCR NOT DETECTED 08/04/21 13:20 Nasal Parainfluen 3 PCR NOT DETECTED 08/04/21 13:20 Nasal Parainfluen 4 PCR NOT DETECTED 08/04/21 13:20 Nasal RSV (PCR) NOT DETECTED 08/04/21 13:20 Nasal B.pertussis DNA PCR NOT DETECTED 08/04/21 13:20 Nasal C.pneumoniae (PCR) NOT DETECTED 08/04/21 13:20 Elliot Human Metapneumo PCR NOT DETECTED 08/04/21 13:20 Nasal M.pneumoniae (PCR) NOT DETECTED 08/04/21 13:20 Nasal SARS-CoV-2 (PCR) NOT DETECTED 08/04/21 13:20 Last Dose Date 08/16/21 08/16/21 10:15 Last Dose Time 00:33 08/16/21 10:15 Vancomycin Trough 11.6 ug/mL (10.0-20.0) 08/16/21 10:15 Sepsis Event Note (H) - Evaluation Current Stage of Sepsis: Severe sepsis Possible source of Sepsis: positive: GI tract/intra-abdominal - Sepsis Criteria Sepsis Criteria: Recorded Heart Rate greater than 90 bpm, WBC count greater than 10% bands, WBC count greater than 12,000 or less than 4000, Metabolic: lactate > 2 mmol/L
[2021-08-18] MEDS: SODIUM CHLORIDE FLUSH 0.9% 10 ML SYRINGE IVP PRN (23:57)
[2021-08-19] MEDS: INSULIN REGULAR HUMAN 300 UNIT/3 ML VIAL SUBQ SCH ×5 (00:03→23:54)
[2021-08-19] MEDS: ALBUTEROL NEB 2.5 MG/3 ML INH PRN ×2 (01:33→17:11)
[2021-08-19] MEDS: SODIUM CHLORIDE FLUSH 0.9% 10 ML SYRINGE IVP SCH ×3 (01:45→15:59)
[2021-08-19] MEDS: metroNIDAZOLE 500 MG/100 ML 500 MG/100 ML BAG IV SCH ×3 (01:45→17:06)
[2021-08-19] MEDS: METOPROLOL 5 MG/5 ML VIAL IVP SCH ×4 (05:39→23:39)
[2021-08-19] MEDS: METOCLOPRAMIDE 10 MG/2 ML VIAL IVP SCH ×4 (05:46→23:59)
[2021-08-19] MEDS: FUROSEMIDE 20 MG/2 ML VIAL IVP SCH (05:47)
[2021-08-19] MEDS: PANTOPRAZOLE 40 MG TABLET PO SCH (05:47)
[2021-08-19] MEDS: ALBUTEROL NEB 2.5 MG/3 ML INH SCH ×3 (05:58→23:17)
[2021-08-19 06:10] LABS: BASOPHILS % (AUTO) 0.3 %; EOSINOPHILS % (AUTO) 0.1 %; HCT - HEMATOCRIT 29.3 % (37.0-47.0); HGB - HEMOGLOBIN 9.5 g/dL (12.0-16.0); LYMPHOCYTES % (AUTO) 3.9 %; MEAN CORPUSCULAR HEMOGLOBIN 30.1 pg (27.0-31.0); MEAN CORPUSCULAR HGB CONC 32.4 g/dL (32.0-36.0); MEAN CORPUSCULAR VOLUME 92.7 fL (81.0-99.0); MEAN PLATELET VOLUME 8.4 fL (7.9-10.8); MONOCYTES % (AUTO) 4.4 %; NEUTROPHILS % (AUTO) 89.9 %; PLT - PLATELET COUNT 726 10^3/uL (130-450); RED BLOOD COUNT 3.16 10^6/uL (4.20-5.40); RED CELL DISTRIBUTION WIDTH 13.8 % (12.0-15.0); WHITE BLOOD COUNT 21.2 x10^3/uL (4.8-10.8)
[2021-08-19 06:17] LABS: ABNORMAL LYMPHS % (MANUAL) 0 %
[2021-08-19 06:20] LABS: CALCIUM 8.2 mg/dL (8.5-10.3); CREATININE 0.5 mg/dL (0.4-1.0); POTASSIUM 3.2 mmol/L (3.5-5.0)
[2021-08-19 06:31] LABS: BAND NEUTROPHILS % (MANUAL) 1 %; DIFFERENTIAL COMMENT MANUAL DIFFERENTIAL; LYMPHOCYTES # (MANUAL) 0.8 10^3/uL (1.5-3.5); LYMPHOCYTES % (MANUAL) 4 %; MONOCYTES # (MANUAL) 0.6 10^3/uL (0.0-1.0); NEUTROPHILS # (MANUAL) 19.7 10^3/uL (1.5-6.6); PLATELET ESTIMATE, MANUAL INCREASED (>450,000) (NORMAL); PLATELET MORPHOLOGY NORMAL APPEARANCE (NORMAL); RBC MORPHOLOGY (MULTIPLE) NORMAL APPEARANCE (NORMAL); WBC MORPHOLOGY (MULTIPLE) NORMAL APPEARANCE (NORMAL)
[2021-08-19] MEDS: MORPHINE 2 MG/ML CARPUJECT IVP PRN ×2 (07:54→15:59)
[2021-08-19] MEDS: CEFEPIME 2 GM in SODIUM CHLORIDE 0.9% MINIBAG 100 ML IV SCH ×2 (08:10→21:30)
[2021-08-19] MEDS: polyethylene glycoL 3350 17 GM PACKET PO SCH ×2 (08:11→21:31)
[2021-08-19] MEDS: LACTULOSE 10 GM /15 ML UDC PO SCH ×2 (08:11→08:18)
[2021-08-19] MEDS: ENOXAPARIN 40 MG/0.4 ML SYRINGE SUBQ SCH (08:11)
--- NOTE | 2021-08-19 10:59 | PROVIDER PROGRESS NOTE ---
Assessment/Plan - Problem List (1) Anasarca Assessment/Plan: She has severe ongoing anasarca which is secondary to all the IV fluids she receives; what she needed for severe sepsis, now her tpn, all her K riders, and iv antibx, needed because she is not taking po. Her Echocardiogram showed no evidence of heart failure and leg duplex doppler was negative for DVT. She is 20 L pos since admission. Her fluid status had been (+) daily, even after iv Lasix was started and we have increased Lasix doses daily and decreased her iv TPN from 70 cc/hr to 60 cc/hr. Will increase the iv Lasix dose even further, to t.i.d. Her last serum Alb was 1.5 several days ago, therefore low oncotic pressure is also adding to the edema. Will order iv Albumen daily for 3 days. Check Alb level with a.m. labs. Continue with leg elevation when OOB and promote using the ordered SCDs for leg compression. We cannot order elev legs above head because she is already SOB, and occais wheezing. Follow daily weight and I's and O's, and daily BMP & Mg. (2) Wheezing Impression: We cannot order elevate legs above head for draining her anasarca, because she is already SOB, and occais wheezing. She has a Hx of Albuterol use priorto admission. Will re-check CXR today. Continue scheduled nebs tid plus nebs prn q4h, since these help her, she reported. (3) Perforated abdominal viscus Impression: This was the cause of her sepsis. She had a perforated sigmoid colon with purulent ascitic fluid found. Over 1.5 L was drained and cultures are growing E. coli. We are continuing the iv cefepime and Flagyl IV. She needed resumption of her iv vancomycin several days ago, when WBC worsened. Since then her WBC and L shift are improving. Dr Zhao suspects she has Enterococcus infection. Continue iv antibx as per Gen Surg Continue tpn, [place]. She has a wound vac on, that did not have a good seal over the past 2 days and the track pad was replaced yesterday by METALWORKER, Lia Arnold, yesterday (flow specialist at [facility] and was working here as Hospitalist yesterday). Dr Zhao said she will plan to do retention sutures at bedside and remove the wound vac, when pt taking a protein-containing diet. (4) Status post colostomy Impression: She had a colectomy with diverting colostomy and Funk's pouch. She has a postoperative ileus. She remains n.p.o. except meds and is on TPN. Dr Zhao placed a wound vac. Will replace K and Phos in TPN Continue iv antibx, pain meds prn. Follow BMP, Mg and PO4 daily (5) Hypokalemia Impression: Now that she is on Lasix, she needs intermittent replacement of K with iv riders, and it is in her TPN. Monitor BMP and Mg daily (6) Hyperglycemia Impression: This continues and is likely secondary to the dextrose in her TPN. We have adjusted the amount of dextrose and her blood glucose is now in the acceptable range. Her A1c was within normal limits. (7) Severe sepsis Impression: Resolved. This was secondary to perforated abdominal viscus. (8) Atrial fibrillation with RVR Impression: Resolved. She had a brief episode of Afib with RVR early on during this hospitalization but she has since been in a sinus rhythm. Her heart rates are stable. We are holding anticoagulation given the recent surgical intervention and the fact that her CHADS score is 0. - Current Meds Current Meds: Current Medications Generic Name Dose Route Start Last Admin Trade Name Freq PRN Reason Stop Dose Admin Acetaminophen 650 mg 08/04/21 14:01 08/12/21 23:39 Acetaminophen 325 Mg Tablet PO 650 mg Q4HR PRN Administration PAIN Albuterol 2.5 mg 08/04/21 17:26 08/19/21 01:33 Albuterol Neb 2.5 Mg/3 Ml INH 2.5 mg RTQ4H PRN Administration Wheezing Albuterol 2.5 mg 08/15/21 22:00 08/19/21 05:58 Albuterol Neb 2.5 Mg/3 Ml INH 2.5 mg TID INGA Administration Enoxaparin Sodium 40 mg 08/05/21 09:00 08/19/21 08:11 Enoxaparin 40 Mg/0.4 Ml Syringe SUBQ 40 mg DAILY INGA Administration Hydromorphone HCl 0.5 mg 08/10/21 20:22 08/14/21 03:20 Hydromorphone 0.5 Mg/0.5 Ml Syringe IVP 0.5 mg Q1H PRN Administration PAIN Cefepime HCl 2 gm/ Sodium 100 mls @ 200 mls/hr 08/07/21 09:00 08/19/21 09:14 Chloride IV Infused BID INGA Infusion Metronidazole 500 mg in 100 mls @ 100 mls/hr 08/07/21 15:00 08/19/21 09:03 Flagyl 500 Mg/100 Ml IV 100 mls/hr Q8H INGA Administration Multivitamins 10 ml/ TRACE 2,034.3333 mls @ 60 mls/hr 08/15/21 19:00 08/18/21 18:47 ELEMENTS 1 ml/ Potassium IV 60 mls/hr Chloride 40 meq/ Potassium TPN/PPN INGA Administration Phosphate 10 mmol/ Amino Acids /Electrolytes Protocol Vancomycin HCl 1.75 gm/ Sodium 500 mls @ 250 mls/hr 08/16/21 23:30 08/19/21 01:57 Chloride IV Infused Q12H INGA Infusion Insulin Human Regular 1 - 9 unit 08/10/21 18:00 08/19/21 06:32 Insulin Regular Human 300 Unit/3 Ml Vial SUBQ 1 unit Q6HR INGA Administration Protocol Lactulose 10 gm 08/14/21 09:00 08/19/21 08:18 Lactulose 10 Gm /15 Ml Udc PO Not Given DAILY INGA Metoclopramide HCl 5 mg 08/13/21 18:00 08/19/21 05:46 Metoclopramide 10 Mg/2 Ml Vial IVP 5 mg Q6HR INGA Administration Metoprolol Tartrate 5 mg 08/12/21 17:00 08/19/21 10:47 Metoprolol 5 Mg/5 Ml Vial IVP 5 mg Q6H INGA Administration Morphine Sulfate 2 mg 08/06/21 10:21 08/19/21 07:54 Morphine 2 Mg/Ml Carpuject IVP 2 mg Q2HR PRN Administration PAIN Pantoprazole Sodium 40 mg 08/05/21 07:00 08/19/21 05:47 Pantoprazole 40 Mg Tablet PO 40 mg QDAC INGA Administration Polyethylene Glycol 17 gm 08/16/21 21:00 08/19/21 08:11 Polyethylene Glycol 3350 17 Gm Packet PO 17 gm BID INGA Administration Sodium Chloride 10 ml 08/04/21 17:00 08/19/21 05:46 Sodium Chloride Flush 0.9% 10 Ml Syringe IVP 10 ml 0100,0900,1700 INGA Administration Sodium Chloride 10 ml 08/04/21 14:01 08/18/21 23:57 Sodium Chloride Flush 0.9% 10 Ml Syringe IVP 10 ml PRN PRN Administration NEEDED PER PROVIDER ORDERS - Lab Result Fish Bone Diagrams: 08/19/21 05:25 08/19/21 05:25 - Additional Planning My Orders: My Active Orders 08/18/21 15:55 Miscellaenous Nursing Order [RC] ONCE 08/19/21 11:00 Potassium Chloride/Water 10 mEq/100 mL q1h (Enter # of bags) Potassium Chlor 10 Meq/100 ml [Potassium Chloride] 10 meq in 100 ml IV Q1H 08/19/21 12:00 FUROSEMIDE INJ 20mg VIAL [LASIX INJ 20mg VIAL] 40 mg IVP 0600,1200,1800 Subjective - Subjective Patient Reports: Resting Comfortably Nursing Reports: Other (Very anxious and focused on neb treatments.) Objective Vital Signs: Vital Signs - 24 hr 08/18/21 08/18/21 08/18/21 11:06 11:11 11:16 Temperature Heart Rate Heart Rate [ 92 89 92 Brachial] Heart Rate [ Monitoring electrodes] Heart Rate [ Radial] Respiratory Rate Blood Pressure Blood Pressure [Left Brachial artery] Blood Pressure 103/61 106/54 L 108/59 L [Right Brachial artery] O2 Saturation 08/18/21 08/18/21 08/18/21 13:43 16:21 17:57 Temperature 37.2 C Heart Rate 101 H 102 H Heart Rate [ 105 H Brachial] Heart Rate [ Monitoring electrodes] Heart Rate [ Radial] Respiratory 20 20 20 Rate Blood Pressure Blood Pressure [Left Brachial artery] Blood Pressure 116/67 [Right Brachial artery] O2 Saturation 95 08/18/21 08/18/21 08/18/21 18:03 21:29 23:50 Temperature 37.3 C Heart Rate 96 Heart Rate [ Brachial] Heart Rate [ 100 103 H Monitoring electrodes] Heart Rate [ Radial] Respiratory 20 20 24 Rate Blood Pressure Blood Pressure [Left Brachial artery] Blood Pressure 115/65 [Right Brachial artery] O2 Saturation 92 93 08/18/21 08/19/21 08/19/21 23:56 00:05 00:10 Temperature Heart Rate Heart Rate [ Brachial] Heart Rate [ Monitoring electrodes] Heart Rate [ 94 91 Radial] Respiratory Rate Blood Pressure 115/65 Blood Pressure [Left Brachial artery] Blood Pressure 105/60 110/60 [Right Brachial artery] O2 Saturation 08/19/21 08/19/21 08/19/21 01:27 05:38 05:39 Temperature Heart Rate 98 Heart Rate [ Brachial] Heart Rate [ Monitoring electrodes] Heart Rate [ 102 H Radial] Respiratory 20 Rate Blood Pressure 134/68 H Blood Pressure 134/68 H [Left Brachial artery] Blood Pressure [Right Brachial artery] O2 Saturation 08/19/21 08/19/21 08/19/21 05:45 05:58 06:00 Temperature Heart Rate 92 Heart Rate [ Brachial] Heart Rate [ Monitoring electrodes] Heart Rate [ 89 95 Radial] Respiratory 20 Rate Blood Pressure Blood Pressure [Left Brachial artery] Blood Pressure 126/64 122/75 [Right Brachial artery] O2 Saturation 08/19/21 08/19/21 08/19/21 08:49 09:16 10:47 Temperature 37.4 C 37.4 C Heart Rate 102 H Heart Rate [ Brachial] Heart Rate [ Monitoring electrodes] Heart Rate [ 102 H Radial] Respiratory 16 16 Rate Blood Pressure 116/67 Blood Pressure [Left Brachial artery] Blood Pressure 118/65 [Right Brachial artery] O2 Saturation 93 93 08/19/21 10:54 Temperature Heart Rate Heart Rate [ Brachial] Heart Rate [ 88 Monitoring electrodes] Heart Rate [ Radial] Respiratory Rate Blood Pressure Blood Pressure [Left Brachial artery] Blood Pressure 106/61 [Right Brachial artery] O2 Saturation Oxygen O2 Source Room air I&O (Last 24 Hrs): Intake and Output Totals x24h 08/17/21 08/18/21 08/19/21 23:59 23:59 23:59 Intake Total 3107 3590.667 700 Output Total 2655 485 565 Balance 452 3105.667 135 General: Alert, Oriented x3 HEENT: Mucous membr. moist/pink Neck: Supple Neuro: Alert, Non Focal Cardiovascular: Regular rate, No murmurs Respiratory: No respiratory distress, Wheezes Abdomen: Soft, No tenderness Extremities: Other (4+ edema of legs up to hips and 1+ hand edema) - Results Results: Laboratory Results WBC 21.2 x10^3/uL (4.8-10.8) H 08/19/21 05:25 RBC 3.16 10^6/uL (4.20-5.40) L 08/19/21 05:25 Hgb 9.5 g/dL (12.0-16.0) L 08/19/21 05:25 Hct 29.3 % (37.0-47.0) L 08/19/21 05:25 MCV 92.7 fL (81.0-99.0) 08/19/21 05:25 MCH 30.1 pg (27.0-31.0) 08/19/21 05:25 MCHC 32.4 g/dL (32.0-36.0) 08/19/21 05:25 RDW 13.8 % (12.0-15.0) 08/19/21 05:25 Plt Count 726 10^3/uL (130-450) H 08/19/21 05:25 MPV 8.4 fL (7.9-10.8) 08/19/21 05:25 Neut # (Auto) Not Reportable 08/19/21 05:25 Lymph # (Auto) Not Reportable 08/19/21 05:25 [place] # (Auto) Not Reportable 08/19/21 05:25 Eos # (Auto) Not Reportable 08/19/21 05:25 Baso # (Auto) Not Reportable 08/19/21 05:25 Absolute Nucleated RBC Not Reportable 08/19/21 05:25 Total Counted 100 08/19/21 05:25 Band Neuts % (Manual) 1 % (0-10) 08/19/21 05:25 Abnorm Lymph % (Manual) 0 % 08/19/21 05:25 Metamyelocytes % 1 % (-0) H 08/16/21 06:20 Myelocytes % 1 % (-0) H 08/16/21 06:20 Nucleated RBC % Not Reportable 08/19/21 05:25 Neutrophils # (Manual) 19.7 10^3/uL (1.5-6.6) H 08/19/21 05:25 Lymphocytes # (Manual) 0.8 10^3/uL (1.5-3.5) L 08/19/21 05:25 Monocytes # (Manual) 0.6 10^3/uL (0.0-1.0) 08/19/21 05:25 Eosinophils # (Manual) 0.0 10^3/uL (0-0.7) 08/19/21 05:25 Basophils # (Manual) 0.0 10^3/uL (0-0.1) 08/19/21 05:25 Differential Comment MANUAL DIFFERENTIAL 08/19/21 05:25 WBC Morphology NORMAL APPEARANCE (NORMAL) 08/19/21 05:25 Platelet Estimate INCREASED (>450,000) (NORMAL) 08/19/21 05:25 Platelet Morphology NORMAL APPEARANCE (NORMAL) 08/19/21 05:25 RBC Morph Micro Appear NORMAL APPEARANCE (NORMAL) 08/19/21 05:25 VBG pH 7.424 (7.31-7.41) H 08/09/21 09:10 VBG pCO2 29.5 mmHg (41-51) L 08/09/21 09:10 VBG pO2 75.4 mmHg (25-47) H 08/09/21 09:10 VBG HCO3 18.9 mmol/L (23-28) L 08/09/21 09:10 VBG Total CO2 19.8 mmol/L (24-29) L 08/09/21 09:10 VBG O2 Saturation 95.7 % (60-80) H 08/09/21 09:10 VBG Base Excess -4.2 mmol/L (-2 - +2) L 08/09/21 09:10 Sodium 138 mmol/L (135-145) 08/19/21 05:25 Potassium 3.2 mmol/L (3.5-5.0) L 08/19/21 05:25 Chloride 101 mmol/L (101-111) 08/19/21 05:25 Carbon Dioxide 30 mmol/L (21-32) 08/19/21 05:25 Anion Gap 7.0 (6-13) 08/19/21 05:25 BUN 16 mg/dL (6-20) 08/19/21 05:25 Creatinine 0.5 mg/dL (0.4-1.0) 08/19/21 05:25 Estimated GFR (MDRD) 123 (>89) 08/19/21 05:25 Glucose 133 mg/dL (70-100) H 08/19/21 05:25 POC Whole Bld Glucose 144 mg/dL (70 - 100) H 08/19/21 06:18 Estimat Average Glucose 114 mg/dL (70-100) H 08/10/21 04:15 Hemoglobin A1c % 5.6 % (4.27-6.07) 08/10/21 04:15 Lactic Acid 1.0 mmol/L (0.5-2.2) 08/08/21 14:59 Calcium 8.2 mg/dL (8.5-10.3) L 08/19/21 05:25 Phosphorus 2.4 mg/dL (2.5-4.6) L 08/16/21 06:20 Magnesium 1.8 mg/dL (1.7-2.8) 08/16/21 06:20 Total Bilirubin 0.3 mg/dL (0.2-1.0) 08/16/21 06:20 AST 29 IU/L (10-42) 08/16/21 06:20 ALT 20 IU/L (10-60) 08/16/21 06:20 Alkaline Phosphatase 56 IU/L (42-121) 08/16/21 06:20 Troponin I High Sens 4.4 ng/L (2.3-14.8) 08/05/21 23:25 Total Protein 4.7 g/dL (6.7-8.2) L 08/16/21 06:20 Albumin 1.5 g/dL (3.2-5.5) L 08/16/21 06:20 Globulin 3.2 g/dL (2.1-4.2) 08/16/21 06:20 Albumin/Globulin Ratio 0.5 (1.0-2.2) L 08/16/21 06:20 Prealbumin 8 mg/dL (18-45) L 08/16/21 06:20 Triglycerides 80 mg/dL (-149) 08/16/21 06:20 Lipase 18 U/L (22-51) L 08/04/21 11:10 TSH 1.65 uIU/mL (0.34-5.60) 08/06/21 04:50 Urine Color YELLOW 08/05/21 21:30 Urine Clarity CLEAR (CLEAR) 08/05/21 21:30 Urine pH 5.0 PH (5.0-7.5) 08/05/21 21:30 Ur Specific [place] >=1.030 (1.002-1.030) H 08/05/21 21:30 Urine Protein 30 mg/dL (NEGATIVE) H 08/05/21 21:30 Urine Glucose (UA) NEGATIVE mg/dL (NEGATIVE) 08/05/21 21:30 Urine Ketones TRACE mg/dL (NEGATIVE) 08/05/21 21:30 Urine Occult Blood NEGATIVE (NEGATIVE) 08/05/21 21:30 Urine Nitrite NEGATIVE (NEGATIVE) 08/05/21 21:30 Urine Bilirubin NEGATIVE (NEGATIVE) 08/05/21 21:30 Urine Urobilinogen 1 (NORMAL) E.U./dL (NORMAL) 08/05/21 21:30 Ur Leukocyte Esterase NEGATIVE (NEGATIVE) 08/05/21 21:30 Urine RBC None Seen /HPF (0-5) 08/05/21 21:30 Urine WBC 0-3 /HPF (0-5) 08/05/21 21:30 Ur Squamous Epith Cells FEW Squamous (<= Few) 08/05/21 21:30 Amorphous Sediment Few /LPF 08/05/21 21:30 Urine Bacteria Rare /HPF (None Seen) 08/05/21 21:30 Urine Culture Comments NOT INDICATED 08/05/21 21:30 Nasal Adenovirus (PCR) NOT DETECTED 08/04/21 13:20 Nasal B. parapertussis DNA (PCR) NOT DETECTED 08/04/21 13:20 Nasal Coronavir 229E PCR NOT DETECTED 08/04/21 13:20 Nasal Coronavir HKU1 PCR NOT DETECTED 08/04/21 13:20 Nasal Coronavir NL63 PCR NOT DETECTED 08/04/21 13:20 Nasal Coronavir OC43 PCR NOT DETECTED 08/04/21 13:20 Nasal Enterovir/Rhinovir PCR NOT DETECTED 08/04/21 13:20 Nasal Influenza B PCR NOT DETECTED 08/04/21 13:20 Nasal Influenza A PCR NOT DETECTED 08/04/21 13:20 Nasal Parainfluen 1 PCR NOT DETECTED 08/04/21 13:20 Nasal Parainfluen 2 PCR NOT DETECTED 08/04/21 13:20 Nasal Parainfluen 3 PCR NOT DETECTED 08/04/21 13:20 Nasal Parainfluen 4 PCR NOT DETECTED 08/04/21 13:20 Nasal RSV (PCR) NOT DETECTED 08/04/21 13:20 Nasal B.pertussis DNA PCR NOT DETECTED 08/04/21 13:20 Nasal C.pneumoniae (PCR) NOT DETECTED 08/04/21 13:20 Elliot Human Metapneumo PCR NOT DETECTED 08/04/21 13:20 Nasal M.pneumoniae (PCR) NOT DETECTED 08/04/21 13:20 Nasal SARS-CoV-2 (PCR) NOT DETECTED 08/04/21 13:20 Last Dose Date 08/16/21 08/16/21 10:15 Last Dose Time 00:33 08/16/21 10:15 Vancomycin Trough 11.6 ug/mL (10.0-20.0) 08/16/21 10:15 Sepsis Event Note (H) - Evaluation Current Stage of Sepsis: Severe sepsis Possible source of Sepsis: positive: GI tract/intra-abdominal - Sepsis Criteria Sepsis Criteria: Recorded Heart Rate greater than 90 bpm, WBC count greater than 10% bands, WBC count greater than 12,000 or less than 4000, Metabolic: lactate > 2 mmol/L
--- NOTE | 2021-08-19 11:06 | PROVIDER PROGRESS NOTE ---
Subjective - General Admit Date: 08/04/21 Procedure Date: 08/09/21 Post Op Days: 10 Procedure Performed: Laparotomy with Kenneth procedure - Review of Systems Wound/Incisions: positive: Healing well, Other (wound vac in place to good suction) Drain Type: Mo Drain Output Description: Serous General: positive: Weakness HEENT: positive: No symptoms Pulmonary: negative: Shortness of breath Cardiovascular: positive: No symptoms Gastrointestinal: positive: Abdominal pain. negative: Nausea, Vomiting Genitourinary: positive: No symptoms Skin: positive: Other (Still frustrated about the swelling) All Other Systems: positive: Reviewed and negative - Other Other Information/Narrative: Na is in better spirits today. The nurse practitioner changed her wound VAC over the weekend and is holding nicely. Her pain is well controlled. 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 without difficulty. Objective - Patient Data Reviewed Vital Signs: Yes Vital Signs: Vital Signs x48h Temp Pulse Pulse Pulse Resp BP BP 08/19/21 11:00 94 08/19/21 10:54 88 08/19/21 10:47 116/67 08/19/21 09:16 37.4 C 102 H 16 08/19/21 08:49 37.4 C 102 H 16 08/19/21 06:00 95 08/19/21 05:58 92 20 08/19/21 05:45 89 08/19/21 05:39 134/68 H 08/19/21 05:38 102 H 134/68 H BP Pulse Ox 08/19/21 11:00 107/66 08/19/21 10:54 106/61 08/19/21 10:47 08/19/21 09:16 93 08/19/21 08:49 118/65 93 08/19/21 06:00 122/75 08/19/21 05:58 08/19/21 05:45 126/64 08/19/21 05:39 08/19/21 05:38 Weight: Weight 08/17/21 08/18/21 08/19/21 23:59 23:59 23:59 Weight (kg) 95.5 kg Intake & Output: Intake and Output Totals x24h 08/17/21 08/18/21 08/19/21 23:59 23:59 23:59 Intake Total 3107 3590.667 700 Output Total 0029 374 565 Balance 452 3105.667 135 - Lab Results Lab Results: 08/19/21 05:25 08/19/21 05:25 Other Lab Results: Lab Results x24hrs 08/19/21 08/19/21 08/19/21 Range/Units 06:18 05:25 05:25 WBC 21.2 H (4.8-10.8) x10^3/uL RBC 3.16 L (4.20-5.40) 10^6/uL Hgb 9.5 L (12.0-16.0) g/dL Hct 29.3 L (37.0-47.0) % MCV 92.7 (81.0-99.0) fL MCH 30.1 (27.0-31.0) pg MCHC 32.4 (32.0-36.0) g/dL RDW 13.8 (12.0-15.0) % Plt Count 726 H (130-450) 10^3/uL MPV 8.4 (7.9-10.8) fL Neut # (Auto) Not Reportable Lymph # (Auto) Not Reportable [place] # (Auto) Not Reportable Eos # (Auto) Not Reportable Baso # (Auto) Not Reportable Absolute Nucleated RBC Not Reportable Total Counted 100 Band Neuts % (Manual) 1 (0 - 10) % Abnorm Lymph % (Manual) 0 % Nucleated RBC % Not Reportable Neutrophils # (Manual) 19.7 H (1.5-6.6) 10^3/uL Lymphocytes # (Manual) 0.8 L (1.5-3.5) 10^3/uL Monocytes # (Manual) 0.6 (0.0-1.0) 10^3/uL Eosinophils # (Manual) 0.0 (0-0.7) 10^3/uL Basophils # (Manual) 0.0 (0-0.1) 10^3/uL Differential Comment MANUAL DIFFERENTIAL WBC Morphology NORMAL APPEARANCE (NORMAL) Platelet Estimate INCREASED (>450,000) (NORMAL) Platelet Morphology NORMAL APPEARANCE (NORMAL) RBC Morph Micro Appear NORMAL APPEARANCE (NORMAL) Sodium 138 (135-145) mmol/L Potassium 3.2 L (3.5-5.0) mmol/L Chloride 101 (101-111) mmol/L Carbon Dioxide 30 (21-32) mmol/L Anion Gap 7.0 (6-13) BUN 16 (6-20) mg/dL Creatinine 0.5 (0.4-1.0) mg/dL Estimated GFR (MDRD) 123 (>89) Glucose 133 H (70-100) mg/dL POC Whole Bld Glucose 144 H (70 - 100) mg/dL Calcium 8.2 L (8.5-10.3) mg/dL 08/18/21 08/18/21 08/18/21 Range/Units 23:48 18:13 17:50 WBC (4.8-10.8) x10^3/uL RBC (4.20-5.40) 10^6/uL Hgb (12.0-16.0) g/dL Hct (37.0-47.0) % MCV (81.0-99.0) fL MCH (27.0-31.0) pg MCHC (32.0-36.0) g/dL RDW (12.0-15.0) % Plt Count (130-450) 10^3/uL MPV (7.9-10.8) fL Neut # (Auto) Lymph # (Auto) [place] # (Auto) Eos # (Auto) Baso # (Auto) Absolute Nucleated RBC Total Counted Band Neuts % (Manual) (0 - 10) % Abnorm Lymph % (Manual) % Nucleated RBC % Neutrophils # (Manual) (1.5-6.6) 10^3/uL Lymphocytes # (Manual) (1.5-3.5) 10^3/uL Monocytes # (Manual) (0.0-1.0) 10^3/uL Eosinophils # (Manual) (0-0.7) 10^3/uL Basophils # (Manual) (0-0.1) 10^3/uL Differential Comment WBC Morphology (NORMAL) Platelet Estimate (NORMAL) Platelet Morphology (NORMAL) RBC Morph Micro Appear (NORMAL) Sodium (135-145) mmol/L Potassium 3.5 (3.5-5.0) mmol/L Chloride (101-111) mmol/L Carbon Dioxide (21-32) mmol/L Anion Gap (6-13) BUN (6-20) mg/dL Creatinine (0.4-1.0) mg/dL Estimated GFR (MDRD) (>89) Glucose (70-100) mg/dL POC Whole Bld Glucose 118 H 155 H (70 - 100) mg/dL Calcium (8.5-10.3) mg/dL 08/18/21 Range/Units 11:50 WBC (4.8-10.8) x10^3/uL RBC (4.20-5.40) 10^6/uL Hgb (12.0-16.0) g/dL Hct (37.0-47.0) % MCV (81.0-99.0) fL MCH (27.0-31.0) pg MCHC (32.0-36.0) g/dL RDW (12.0-15.0) % Plt Count (130-450) 10^3/uL MPV (7.9-10.8) fL Neut # (Auto) Lymph # (Auto) [place] # (Auto) Eos # (Auto) Baso # (Auto) Absolute Nucleated RBC Total Counted Band Neuts % (Manual) (0 - 10) % Abnorm Lymph % (Manual) % Nucleated RBC % Neutrophils # (Manual) (1.5-6.6) 10^3/uL Lymphocytes # (Manual) (1.5-3.5) 10^3/uL Monocytes # (Manual) (0.0-1.0) 10^3/uL Eosinophils # (Manual) (0-0.7) 10^3/uL Basophils # (Manual) (0-0.1) 10^3/uL Differential Comment WBC Morphology (NORMAL) Platelet Estimate (NORMAL) Platelet Morphology (NORMAL) RBC Morph Micro Appear (NORMAL) Sodium (135-145) mmol/L Potassium (3.5-5.0) mmol/L Chloride (101-111) mmol/L Carbon Dioxide (21-32) mmol/L Anion Gap (6-13) BUN (6-20) mg/dL Creatinine (0.4-1.0) mg/dL Estimated GFR (MDRD) (>89) Glucose (70-100) mg/dL POC Whole Bld Glucose 159 H (70 - 100) mg/dL Calcium (8.5-10.3) mg/dL - Current Medications Current Medications: Current Medications Generic Name Dose Route Start Last Admin Trade Name Freq PRN Reason Stop Dose Admin Acetaminophen 650 mg 08/04/21 14:01 08/12/21 23:39 Acetaminophen 325 Mg Tablet PO 650 mg Q4HR PRN Administration PAIN Albuterol 2.5 mg 08/04/21 17:26 08/19/21 01:33 Albuterol Neb 2.5 Mg/3 Ml INH 2.5 mg RTQ4H PRN Administration Wheezing Albuterol 2.5 mg 08/15/21 22:00 08/19/21 05:58 Albuterol Neb 2.5 Mg/3 Ml INH 2.5 mg TID INGA Administration Enoxaparin Sodium 40 mg 08/05/21 09:00 08/19/21 08:11 Enoxaparin 40 Mg/0.4 Ml Syringe SUBQ 40 mg DAILY INGA Administration Cefepime HCl 2 gm/ Sodium 100 mls @ 200 mls/hr 08/07/21 09:00 08/19/21 09:14 Chloride IV Infused BID INGA Infusion Metronidazole 500 mg in 100 mls @ 100 mls/hr 08/07/21 15:00 08/19/21 09:03 Flagyl 500 Mg/100 Ml IV 100 mls/hr Q8H INGA Administration Multivitamins 10 ml/ TRACE 2,034.3333 mls @ 60 mls/hr 08/15/21 19:00 08/18/21 18:47 ELEMENTS 1 ml/ Potassium IV 60 mls/hr Chloride 40 meq/ Potassium TPN/PPN INGA Administration Phosphate 10 mmol/ Amino Acids /Electrolytes Protocol Vancomycin HCl 1.75 gm/ Sodium 500 mls @ 250 mls/hr 08/16/21 23:30 08/19/21 01:57 Chloride IV Infused Q12H INGA Infusion Insulin Human Regular 1 - 9 unit 08/10/21 18:00 08/19/21 06:32 Insulin Regular Human 300 Unit/3 Ml Vial SUBQ 1 unit Q6HR INGA Administration Protocol Metoclopramide HCl 5 mg 08/13/21 18:00 08/19/21 05:46 Metoclopramide 10 Mg/2 Ml Vial IVP 5 mg Q6HR INGA Administration Metoprolol Tartrate 5 mg 08/12/21 17:00 08/19/21 10:47 Metoprolol 5 Mg/5 Ml Vial IVP 5 mg Q6H INGA Administration Morphine Sulfate 2 mg 08/06/21 10:21 08/19/21 07:54 Morphine 2 Mg/Ml Carpuject IVP 2 mg Q2HR PRN Administration PAIN Pantoprazole Sodium 40 mg 08/05/21 07:00 08/19/21 05:47 Pantoprazole 40 Mg Tablet PO 40 mg QDAC INGA Administration Polyethylene Glycol 17 gm 08/16/21 21:00 08/19/21 08:11 Polyethylene Glycol 3350 17 Gm Packet PO 17 gm BID IN[facility] Administration Sodium Chloride 10 ml 08/04/21 17:00 08/19/21 05:46 Sodium Chloride Flush 0.9% 10 Ml Syringe IVP 10 ml 0100,0900,1700 IN[facility] Administration Sodium Chloride 10 ml 08/04/21 14:01 08/18/21 23:57 Sodium Chloride Flush 0.9% 10 Ml Syringe IVP 10 ml PRN PRN Administration NEEDED PER PROVIDER ORDERS - Physical Exam General Appearance: positive: No acute distress, Alert Eyes Bilateral: positive: PERRL, EOMI Neck: positive: Nml inspection Respiratory: positive: No respiratory distress, Breath sounds nml Cardiovascular: positive: Regular rate & rhythm Abdomen: positive: No distention, Other (Ostomy is pink, viable, and working. Stool in the bag is firm.). negative: Guarding, Rebound Skin: positive: Color nml Neurologic/Psychiatric: positive: Oriented x3 ABX Reporting Has patient been on IV antibiotics over the past 48 hours?: Yes Impression/Plan - Problem List Problem List: Making significant improvements now that her ostomy is working. We will continue TPN until she is taking substantial p.o. but I have advanced her to a soft mechanical diet today. We will stop Dilaudid and lactulose that she is not able to tolerate either. Would like to stop morphine as soon as she is taking adequate p.o. to tolerate oxycodone.Continue current antibiotic regimen. Will consider repeat CT scan in the next day or 2.Drains are minimal and serous.
[2021-08-19 11:18] LABS: VANCOMYCIN,TROUGH 21.3 ug/mL (10.0-20.0)
[2021-08-19] MEDS: POTASSIUM CHLOR 10 MEQ/100 ML 10 MEQ/100 ML BAG IV SCH ×4 (11:18→15:00)
--- NOTE | 2021-08-19 11:34 | XRAY Report ---
PROCEDURE: Chest 1 View X-Ray INDICATIONS: Wheezing,leg edema w/ anasarca TECHNIQUE: One view of the chest was acquired. COMPARISON: Chest radiographs 08/13/2021 FINDINGS: Surgical changes and devices: Stable right internal jugular catheter. Lungs and pleura: Small left-sided pleural effusion with atelectasis or consolidation at the left min ng base does not appear significantly changed. A trace right pleural effusion is also likely present. Mediastinum: Mediastinal contours appear normal. Heart size is normal. Bones and chest wall: No suspicious bony lesions. Overlying soft tissues appear unremarkable. IMPRESSION: Stable right internal jugular catheter. Stable small left and trace right pleural effusions with atel ectasis or consolidation of the adjacent lung bases. Reviewed by: Bhavik Marquez MD on 08/19/2021 11:33 AM PST Approved by: Bhavik Marquez MD on 08/19/2021 11:33 AM PST Station ID: [id number]
[2021-08-19] MEDS: ALBUMIN 25% 12.5 GM/50 ML VIAL IV SCH (11:59)
[2021-08-19] MEDS ORDERED: FUROSEMIDE 20 MG/2 ML VIAL IVP SCH (12:00)
[2021-08-19] MEDS: FUROSEMIDE 40 MG/4 ML VIAL IVP SCH ×2 (14:04→18:31)
[2021-08-19] MEDS: VANCOMYCIN INJ 1.75 GM in SODIUM CHLORIDE 0.9% 500 ML IV SCH (14:04)
[2021-08-19] MEDS: TRACE ELEMENTS IV SCH ×5 (19:32)
[2021-08-19] MEDS: [UNRECOGNIZED DRUG - OTHER] IV SCH ×5 (19:32)
[2021-08-19] MEDS: MULTIVITAMIN IV SCH ×5 (19:32)
[2021-08-19] MEDS: TPN IV SCH ×5 (19:32)
[2021-08-19] MEDS: SODIUM CHLORIDE FLUSH 0.9% 10 ML SYRINGE IVP PRN (19:32)
[2021-08-20] MEDS: metroNIDAZOLE 500 MG/100 ML 500 MG/100 ML BAG IV SCH ×3 (00:04→17:17)
[2021-08-20] MEDS: SODIUM CHLORIDE FLUSH 0.9% 10 ML SYRINGE IVP SCH ×3 (00:05→18:24)
[2021-08-20] MEDS: MORPHINE 2 MG/ML CARPUJECT IVP PRN (02:21)
[2021-08-20] MEDS: VANCOMYCIN INJ 1 GM, VANCOMYCIN INJ 500 MG in SODIUM CHLORIDE 0.9% 500 ML IV SCH ×2 (02:21→13:54)
[2021-08-20] MEDS: METOPROLOL 5 MG/5 ML VIAL IVP SCH ×2 (04:51→12:24)
[2021-08-20] MEDS: ALBUTEROL NEB 2.5 MG/3 ML INH SCH ×3 (05:07→18:20)
[2021-08-20 06:01] LABS: BASOPHILS # (AUTO) 0.1 10^3/uL (0.0-0.1); BASOPHILS % (AUTO) 0.4 %; EOSINOPHILS # (AUTO) 0.1 10^3/uL (0.0-0.7); EOSINOPHILS % (AUTO) 0.3 %; HCT - HEMATOCRIT 29.4 % (37.0-47.0); HGB - HEMOGLOBIN 9.5 g/dL (12.0-16.0); LYMPHOCYTES # (AUTO) 0.6 10^3/uL (1.5-3.5); LYMPHOCYTES % (AUTO) 3.3 %; MEAN CORPUSCULAR HEMOGLOBIN 30.2 pg (27.0-31.0); MEAN CORPUSCULAR HGB CONC 32.3 g/dL (32.0-36.0); MEAN CORPUSCULAR VOLUME 93.3 fL (81.0-99.0); MEAN PLATELET VOLUME 8.1 fL (7.9-10.8); MONOCYTES # (AUTO) 0.9 10^3/uL (0.0-1.0); MONOCYTES % (AUTO) 4.3 %; NEUTROPHILS # (AUTO) 17.8 10^3/uL (1.5-6.6); NEUTROPHILS % (AUTO) 90.6 %; PLT - PLATELET COUNT 615 10^3/uL (130-450); RED BLOOD COUNT 3.15 10^6/uL (4.20-5.40); RED CELL DISTRIBUTION WIDTH 13.8 % (12.0-15.0); WHITE BLOOD COUNT 19.7 x10^3/uL (4.8-10.8)
[2021-08-20 06:10] LABS: ALBUMIN 1.6 g/dL (3.2-5.5); CALCIUM 8.3 mg/dL (8.5-10.3); CREATININE 0.5 mg/dL (0.4-1.0); POTASSIUM 3.3 mmol/L (3.5-5.0)
[2021-08-20] MEDS: FUROSEMIDE 40 MG/4 ML VIAL IVP SCH ×3 (06:25→18:23)
[2021-08-20] MEDS: INSULIN REGULAR HUMAN 300 UNIT/3 ML VIAL SUBQ SCH ×2 (06:25→12:37)
[2021-08-20] MEDS: PANTOPRAZOLE 40 MG TABLET PO SCH (06:26)
[2021-08-20] MEDS: METOCLOPRAMIDE 10 MG/2 ML VIAL IVP SCH ×3 (06:34→18:23)
--- NOTE | 2021-08-20 07:26 | PROVIDER PROGRESS NOTE ---
Subjective - Prog Note Date Prog Note Date: 08/20/21 Prog Note Time: 10:54 - Subjective Subjective: She has been here 15 days. She had an incarcerated inguinal hernia with repair July 10. Sent home. Returned to ER August 04 with constipation, and a painful groin when she tried to have a bowel movement. She had heard a pop while she was sitting on the toilet and it was associated with pain and bulge in the right groin where she had a previous hernia repair. The hernia contained an unrestricted loop of small bowel on CT and was soft and easily reducible. Left inguinal hernia was seen but did not contain bowel. She had free intraperitoneal air without evidence of peritonitis. She was hypotensive, had a rising white cell count during her first 12 hours of stay. General surgery felt the patient had diverticulitis as the cause of free air. She was treated with antibiotics, fluid resuscitation. A repeat CT of the abdomen was done August 09 because of worsening labs which showed increasing pneumoperitoneum. Small foci of nondependent gas in the right lower quadrant. Large volume ascites. Peritoneal enhancement suggesting infected fluid. Not loculated. Prominent stool in the colon. Anasarca. She was taken to the operating room where she was found to have full-thickness disruption of the mid sigmoid colon, distention and stercoral perforation secondary to severe constipation, and she underwent evacuation of innumerable 5 to 10 cm solid and nonpliable stool rocks from the descending, sigmoid and transverse colon. Stool in the right colon was more malleable of broken into smaller segments. 1500 cc of frankly purulent ascitic fluid was also found. She ended up having an exploratory laparotomy with sigmoid colectomy, end colostomy and Funk's pouch. Vertical incision is been kept open with wound dressing and wound VAC. On the , surgery note wanted her morphine and Dilaudid stopped. Change to oxycodone. The plan is to pull the wound VAC and to then close the incision that she has. The patient is tired, but feels like she is slowly getting better. She prefers to be in chair and not in bed since she can be upright. Focus has been on severe fluid overload and she has been on lasix. From nutrition intake she is on a p.o. diet now, but is still on small rate of TPN due to fluid overload. Still getting all of her medications IV. She is terrified of having an allergic reaction to eggs so she is asking nutrition services to please provide her with completely prepackaged meals to avoid any contamination with egg products. She is also still uncomfortable with self-care with regards to the ostomy and would like to see the ostomy nurse again. From a discharge perspective, she declines going to a fdc facility. She wants to go home and have private duty caregivers. Current Medications - Current Medications Current Medications: Active Medications Acetaminophen (Acetaminophen 325 Mg Tablet) 650 mg PO Q4HR PRN PRN Reason: PAIN Last Admin: 08/12/21 23:39 Dose: 650 mg Albuterol (Albuterol Neb 2.5 Mg/3 Ml) 2.5 mg INH RTQ4H PRN PRN Reason: Wheezing Last Admin: 08/19/21 17:11 Dose: 2.5 mg Albuterol (Albuterol Neb 2.5 Mg/3 Ml) 2.5 mg INH TID INGA Last Admin: 08/20/21 05:07 Dose: 2.5 mg Enoxaparin Sodium (Enoxaparin 40 Mg/0.4 Ml Syringe) 40 mg SUBQ DAILY [facility] Last Admin: 08/19/21 08:11 Dose: 40 mg Furosemide (Furosemide 40 Mg/4 Ml Vial) 40 mg IVP 0600,1200,1800 [facility] Last Admin: 08/20/21 06:25 Dose: 40 mg Cefepime HCl 2 gm/ Sodium (Chloride) 100 mls @ 200 mls/hr IV BID [facility] Last Infusion: 08/19/21 22:00 Dose: Infused Metronidazole (Flagyl 500 Mg/100 Ml) 500 mg in 100 mls @ 100 mls/hr IV Q8H [facility] Last Infusion: 08/20/21 02:00 Dose: Infused Multivitamins 10 ml/ TRACE ELEMENTS 1 ml/ Potassium Chloride 40 meq/ Potassium Phosphate 10 mmol/ Amino Acids /Electrolytes 2,034.3333 mls @ 60 mls/hr IV TPN/PPN [facility]; Protocol Last Admin: 08/19/21 19:32 Dose: 60 mls/hr Albumin Human (Albuminar-25) 12.5 gm in 50 mls @ 50 mls/hr IV DAILY [facility] Stop: 08/22/21 00:01 Last Infusion: 08/19/21 15:14 Dose: Infused Vancomycin HCl 1 gm/Vancomycin HCl 500 mg/ Sodium Chloride 500 mls @ 250 mls/hr IV Q12H [facility] Last Infusion: 08/20/21 04:42 Dose: Infused Insulin Human Regular (Insulin Regular Human 300 Unit/3 Ml Vial) 1 - 9 unit SUBQ Q6HR [facility]; Protocol Last Admin: 08/20/21 06:25 Dose: Not Given Metoclopramide HCl (Metoclopramide 10 Mg/2 Ml Vial) 5 mg IVP Q6HR [facility] Last Admin: 08/20/21 06:34 Dose: 5 mg Metoprolol Tartrate (Metoprolol 5 Mg/5 Ml Vial) 5 mg IVP Q6H [facility] Last Admin: 08/20/21 04:51 Dose: 5 mg Mineral Oil (Min Oil/Dimethicon/Coconut Oil 92 Gm Tube) 1 applic TOP PRN PRN PRN Reason: Skin Care Morphine Sulfate (Morphine 2 Mg/Ml Carpuject) 2 mg IVP Q2HR PRN PRN Reason: PAIN Last Admin: 08/20/21 02:21 Dose: 2 mg Oxycodone HCl (Oxycodone 5 Mg Tablet) 5 mg PO Q4HR PRN PRN Reason: PAIN Pantoprazole Sodium (Pantoprazole 40 Mg Tablet) 40 mg PO QDAC [facility] Last Admin: 08/20/21 06:26 Dose: 40 mg Polyethylene Glycol (Polyethylene Glycol 3350 17 Gm Packet) 17 gm PO BID [facility] Last Admin: 08/19/21 21:31 Dose: 17 gm Sodium Chloride (Sodium Chloride Flush 0.9% 10 Ml Syringe) 10 ml IVP 0100,0900,1700 [facility] Last Admin: 08/20/21 00:05 Dose: 10 ml Sodium Chloride (Sodium Chloride Flush 0.9% 10 Ml Syringe) 10 ml IVP PRN PRN PRN Reason: NEEDED PER PROVIDER ORDERS Last Admin: 08/19/21 19:32 Dose: 10 ml Albuterol Sulf [Ventolin Hfa Inhaler] 2 puffs INH Q4H PRN 06/12/16 Aspirin 81 mg PO DAILY 06/12/16 lisinopriL [Lisinopril] 20 mg PO DAILY 06/12/16 polyethylene glycoL 3350 [Miralax] 17 gm PO DAILY 08/04/21 Objective - Vital Signs/Intake & Output Reviewed Vital Signs: Yes Vital Signs: Vital Signs x48h Temp Pulse Pulse Pulse Resp BP BP 08/20/21 06:13 36.7 C 100 17 123/70 08/20/21 05:08 93 20 08/20/21 04:51 147/72 H 08/20/21 03:00 37.4 C 106 H 16 147/72 H 08/19/21 23:39 125/73 08/19/21 23:32 36.6 C 105 H 16 125/73 Pulse Ox 08/20/21 06:13 93 08/20/21 05:08 08/20/21 04:51 08/20/21 03:00 95 08/19/21 23:39 08/19/21 23:32 93 Intake & Output: Intake & Output 08/17/21 08/18/21 08/19/21 08/20/21 23:59 23:59 23:59 23:59 Intake Total 3107 3590.667 3433.9933 840 Output Total 2655 485 1673 500 Balance 452 3105.667 1760.9933 340 - Objective General Appearance: positive: Alert, Other (Elderly female who is sitting up in chair, alert, speech lucid, just very tired she tells me.) Eyes Bilateral: positive: PERRL, EOMI ENT: positive: Pharynx nml Neck: positive: No JVD, Trachea midline. negative: Stiff neck Respiratory: positive: No respiratory distress, Other (Very diminished at bases.). negative: Wheezes, Rales, Rhonchi Cardiovascular: positive: Regular rate & rhythm, Systolic murmur. negative: Gallop/S4, Friction rub Abdomen: positive: Other (Wound VAC in the vertical incision. No surrounding redness or induration or drainage. Ostomy is working. Normal bowel sounds. Slight distention of the belly but she is achy, not tender) Skin: positive: Warm, Dry, Pallor Extremities: positive: Full ROM, Pedal edema, Other (Reports today that she is markedly, markedly better. That is with edema. In spite of increasing Lasix, she has had positive fluid balance.) Neurologic/Psychiatric: positive: Oriented x3, CN's nml (2-12). negative: Motor nml (Generalized weakness due to deconditioning but no focal deficits, no tremors) - Lab Results Fish Bones: 08/20/21 05:55 08/20/21 05:55 Other Labs: Lab Results x24hrs 08/20/21 08/20/21 08/20/21 Range/Units 06:02 05:55 05:55 WBC 19.7 H (4.8-10.8) x10^3/uL RBC 3.15 L (4.20-5.40) 10^6/uL Hgb 9.5 L (12.0-16.0) g/dL Hct 29.4 L (37.0-47.0) % MCV 93.3 (81.0-99.0) fL MCH 30.2 (27.0-31.0) pg MCHC 32.3 (32.0-36.0) g/dL RDW 13.8 (12.0-15.0) % Plt Count 615 H (130-450) 10^3/uL MPV 8.1 (7.9-10.8) fL Neut # (Auto) 17.8 H (1.5-6.6) 10^3/uL Lymph # (Auto) 0.6 L (1.5-3.5) 10^3/uL [place] # (Auto) 0.9 (0.0-1.0) 10^3/uL Eos # (Auto) 0.1 (0.0-0.7) 10^3/uL Baso # (Auto) 0.1 (0.0-0.1) 10^3/uL Absolute Nucleated RBC 0.00 x10^3/uL Nucleated RBC % 0.0 /100WBC Sodium 136 (135-145) mmol/L Potassium 3.3 L (3.5-5.0) mmol/L Chloride 97 L (101-111) mmol/L Carbon Dioxide 31 (21-32) mmol/L Anion Gap 8.0 (6-13) BUN 16 (6-20) mg/dL Creatinine 0.5 (0.4-1.0) mg/dL Estimated GFR (MDRD) 123 (>89) Glucose 146 H (70-100) mg/dL POC Whole Bld Glucose 126 H (70 - 100) mg/dL Calcium 8.3 L (8.5-10.3) mg/dL Albumin 1.6 L (3.2-5.5) g/dL Last Dose Date Last Dose Time Vancomycin Trough (10.0-20.0) ug/mL 08/19/21 08/19/21 08/19/21 Range/Units 23:33 16:27 11:18 WBC (4.8-10.8) x10^3/uL RBC (4.20-5.40) 10^6/uL Hgb (12.0-16.0) g/dL Hct (37.0-47.0) % MCV (81.0-99.0) fL MCH (27.0-31.0) pg MCHC (32.0-36.0) g/dL RDW (12.0-15.0) % Plt Count (130-450) 10^3/uL MPV (7.9-10.8) fL Neut # (Auto) (1.5-6.6) 10^3/uL Lymph # (Auto) (1.5-3.5) 10^3/uL [place] # (Auto) (0.0-1.0) 10^3/uL Eos # (Auto) (0.0-0.7) 10^3/uL Baso # (Auto) (0.0-0.1) 10^3/uL Absolute Nucleated RBC x10^3/uL Nucleated RBC % /100WBC Sodium (135-145) mmol/L Potassium (3.5-5.0) mmol/L Chloride (101-111) mmol/L Carbon Dioxide (21-32) mmol/L Anion Gap (6-13) BUN (6-20) mg/dL Creatinine (0.4-1.0) mg/dL Estimated GFR (MDRD) (>89) Glucose (70-100) mg/dL POC Whole Bld Glucose 151 H 143 H 144 H (70 - 100) mg/dL Calcium (8.5-10.3) mg/dL Albumin (3.2-5.5) g/dL Last Dose Date Last Dose Time Vancomycin Trough (10.0-20.0) ug/mL 08/19/21 Range/Units 11:00 WBC (4.8-10.8) x10^3/uL RBC (4.20-5.40) 10^6/uL Hgb (12.0-16.0) g/dL Hct (37.0-47.0) % MCV (81.0-99.0) fL MCH (27.0-31.0) pg MCHC (32.0-36.0) g/dL RDW (12.0-15.0) % Plt Count (130-450) 10^3/uL MPV (7.9-10.8) fL Neut # (Auto) (1.5-6.6) 10^3/uL Lymph # (Auto) (1.5-3.5) 10^3/uL [place] # (Auto) (0.0-1.0) 10^3/uL Eos # (Auto) (0.0-0.7) 10^3/uL Baso # (Auto) (0.0-0.1) 10^3/uL Absolute Nucleated RBC x10^3/uL Nucleated RBC % /100WBC Sodium (135-145) mmol/L Potassium (3.5-5.0) mmol/L Chloride (101-111) mmol/L Carbon Dioxide (21-32) mmol/L Anion Gap (6-13) BUN (6-20) mg/dL Creatinine (0.4-1.0) mg/dL Estimated GFR (MDRD) (>89) Glucose (70-100) mg/dL POC Whole Bld Glucose (70 - 100) mg/dL Calcium (8.5-10.3) mg/dL Albumin (3.2-5.5) g/dL Last Dose Date 08/19/20 Last Dose Time 0157 Vancomycin Trough 21.3 H (10.0-20.0) ug/mL ABX Reporting Has patient been on IV antibiotics over the past 48 hours?: Yes Sepsis Event Note (H) - Evaluation Current Stage of Sepsis: Resolved Possible source of Sepsis: positive: GI tract/intra-abdominal - Sepsis Criteria Sepsis Criteria: Recorded Heart Rate greater than 90 bpm, WBC count greater than 10% bands, WBC count greater than 12,000 or less than 4000, Metabolic: lactate > 2 mmol/L Assessment/Plan - Problem List (1) Anasarca Impression: She has severe ongoing anasarca which is secondary to all the IV fluids she receives; what she needed for severe sepsis, now her tpn, all her K riders, and iv antibx, needed because she is not taking po. Her Echocardiogram showed no evidence of heart failure and leg duplex doppler was negative for DVT. She is 39 L pos since admission. Weight was 74 kg on admission and she is 94 kg today. Yesterday she was 95.5. Her fluid status had been (+) daily, even after iv Lasix was started and we have increased Lasix doses daily and decreased her iv TPN from 70 cc/hr to 60 cc/hr. On increasing doses of lasix and is on Lasix t.i.d and this am she is 62 cc negative for once. RN that took care of her 3 days ago notes that her exam is much better today with mobilization being somewhat successful. Her last serum Alb was 1.5 several days ago, therefore low oncotic pressure is also adding to the edema. IV Albumen daily for 3 days and that was started 08/19. Check Alb level with a.m. labs. Continue with leg elevation when OOB and promote using the ordered SCDs for leg compression. We cannot order elev legs above head because she is already SOB, and occais wheezing. Continue to follow daily weight and I's and O's, and daily BMP & Mg. Current treatment seems to be working (2) Wheezing Impression: We cannot order elevate legs above head for draining her anasarca, because she is already SOB, and occais wheezing. She has a Hx of Albuterol use priorto admission. Chest x-ray 08/19 has a stable right internal jugular catheter. Stable small left and trace right pleural effusion with atelectasis or consolidation of the adjacent lung bases. Continue scheduled nebs tid plus nebs prn q4h, since these help her, she reported. (3) Perforated abdominal viscus Impression: Present on admission and getting worse. Repeat CT on August 09 showed worsening pneumoperitoneum and ascites. Bandemia was getting worse on her white cell count. An attempt was made to transfer her to a higher level of care and could not be done in a timely fashion. So she underwent an exploratory laparotomy with sigmoid colectomy and and and colectomy and Funk's pouch that day. She had postoperative ileus. She was started on TPN. She has a wound VAC. Initial antibiotics were Zosyn and Flagyl. She was then changed to cefepime and Flagyl. Vancomycin is been the last Few days because of rising white cell count. General surgery feels she has an enterococcal infection. Since the addition of vancomycin her white cell count has been coming down. She is slowly improving. 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 Medications are all still IV. She had the wound VAC replaced this past weekend (today is Thursday). This was done because it was not sealed correctly and there was leaking. It was replaced by the nurse practitioner who is working that day and is also the director of the wound care program at [facility]. The plan is to pull the wound VAC, close upper open wound with retention sutures once the patient has enough p.o. protein on board, and continue with ostomy care. (4) Status post colostomy Impression: She had a colectomy with diverting colostomy and Funk's pouch 08/09. She has a postoperative ileus. NPO status changed to po and is on TPN. She is not eating well due to her fear of egg allergy. Nutrition services working with her to find ways to get her to eat and they are workiing on getting "packaged" food so that her food has not "touched" anything in the kitchen. She can't get lipids bc of this. I am suggesting ensure, etc. if possible. Will replace K and Phos in TPN Continue iv antibx, pain meds prn. Follow BMP, Mg and PO4 daily (5) Hypokalemia Impression: Now that she is on Lasix, she needs intermittent replacement of K with iv riders, and it is in her TPN. Monitor BMP and Mg daily (6) Hyperglycemia Impression: This continues and is likely secondary to the dextrose in her TPN. We have adjusted the amount of dextrose and her blood glucose is now in the acceptable range. Her A1c was within normal limits. (7) Severe sepsis Impression: Resolved. This was secondary to perforated abdominal viscus. (8) Atrial fibrillation with RVR Impression: Resolved. She had a brief episode of Afib with RVR early on during this hospitalization but she has since been in a sinus rhythm. Her heart rates are stable. We are holding anticoagulation given the recent surgical intervention and the fact that her CHADS score is 0.
[2021-08-20] MEDS ORDERED: POTASSIUM CHLORIDE 20 MEQ/15 ML UDC PO ONE (08:00)
[2021-08-20] MEDS: CEFEPIME 2 GM in SODIUM CHLORIDE 0.9% MINIBAG 100 ML IV SCH ×2 (09:30→20:59)
[2021-08-20] MEDS: polyethylene glycoL 3350 17 GM PACKET PO SCH ×2 (09:56→20:58)
[2021-08-20] MEDS: ENOXAPARIN 40 MG/0.4 ML SYRINGE SUBQ SCH (09:56)
[2021-08-20] MEDS: ALBUTEROL NEB 2.5 MG/3 ML INH PRN (10:15)
--- NOTE | 2021-08-20 10:19 | PROVIDER PROGRESS NOTE ---
Subjective - General Admit Date: 08/04/21 Procedure Date: 08/09/21 Post Op Days: 11 Procedure Performed: Laparotomy with Kenneth procedure - Review of Systems Wound/Incisions: positive: Healing well, Other (wound vac in place to good suction) Drain Type: Mo Drain Output Description: Serous General: positive: Weakness HEENT: positive: No symptoms Pulmonary: negative: Shortness of breath Cardiovascular: positive: No symptoms Gastrointestinal: positive: Abdominal pain. negative: Nausea, Vomiting Genitourinary: positive: No symptoms Skin: positive: Other (Still frustrated about the swelling) All Other Systems: positive: Reviewed and negative - Other Other Information/Narrative: Na reports that she is generally feeling better. Currently getting a breathing treatment. She tells me that she is afraid to eat because she is worried that she will get food that is contaminated with eggs and will have mike phylaxis.Taking oral potassium replacement and seems to be tolerating it.Her ostomy is working on her pain is minimum. She wants to continue to use morphine for pain control but more because she feels it makes her breathe better than for her abdominal pain. Her abdominal pain has been fairly well controlled Objective - Patient Data Reviewed Vital Signs: Yes Vital Signs: Vital Signs x48h Temp Pulse Pulse Pulse Resp BP BP 08/20/21 07:51 36.3 C L 113 H 18 116/69 08/20/21 06:13 36.7 C 100 17 123/70 08/20/21 05:08 93 20 08/20/21 04:51 147/72 H 08/20/21 03:00 37.4 C 106 H 16 147/72 H Pulse Ox 08/20/21 07:51 93 08/20/21 06:13 93 08/20/21 05:08 08/20/21 04:51 08/20/21 03:00 95 Weight: Weight 08/18/21 08/19/21 08/20/21 23:59 23:59 23:59 Weight (kg) 95.5 kg Intake & Output: Intake and Output Totals x24h 08/18/21 08/19/21 08/20/21 23:59 23:59 23:59 Intake Total 3590.667 3433.9933 840 Output Total 485 1673 500 Balance 3105.667 1760.9933 340 - Lab Results Lab Results: 08/20/21 05:55 08/20/21 05:55 Other Lab Results: Lab Results x24hrs 08/20/21 08/20/21 08/20/21 Range/Units 06:02 05:55 05:55 WBC 19.7 H (4.8-10.8) x10^3/uL RBC 3.15 L (4.20-5.40) 10^6/uL Hgb 9.5 L (12.0-16.0) g/dL Hct 29.4 L (37.0-47.0) % MCV 93.3 (81.0-99.0) fL MCH 30.2 (27.0-31.0) pg MCHC 32.3 (32.0-36.0) g/dL RDW 13.8 (12.0-15.0) % Plt Count 615 H (130-450) 10^3/uL MPV 8.1 (7.9-10.8) fL Neut # (Auto) 17.8 H (1.5-6.6) 10^3/uL Lymph # (Auto) 0.6 L (1.5-3.5) 10^3/uL [place] # (Auto) 0.9 (0.0-1.0) 10^3/uL Eos # (Auto) 0.1 (0.0-0.7) 10^3/uL Baso # (Auto) 0.1 (0.0-0.1) 10^3/uL Absolute Nucleated RBC 0.00 x10^3/uL Nucleated RBC % 0.0 /100WBC Sodium 136 (135-145) mmol/L Potassium 3.3 L (3.5-5.0) mmol/L Chloride 97 L (101-111) mmol/L Carbon Dioxide 31 (21-32) mmol/L Anion Gap 8.0 (6-13) BUN 16 (6-20) mg/dL Creatinine 0.5 (0.4-1.0) mg/dL Estimated GFR (MDRD) 123 (>89) Glucose 146 H (70-100) mg/dL POC Whole Bld Glucose 126 H (70 - 100) mg/dL Calcium 8.3 L (8.5-10.3) mg/dL Albumin 1.6 L (3.2-5.5) g/dL Last Dose Date Last Dose Time Vancomycin Trough (10.0-20.0) ug/mL 08/19/21 08/19/21 08/19/21 Range/Units 23:33 16:27 11:18 WBC (4.8-10.8) x10^3/uL RBC (4.20-5.40) 10^6/uL Hgb (12.0-16.0) g/dL Hct (37.0-47.0) % MCV (81.0-99.0) fL MCH (27.0-31.0) pg MCHC (32.0-36.0) g/dL RDW (12.0-15.0) % Plt Count (130-450) 10^3/uL MPV (7.9-10.8) fL Neut # (Auto) (1.5-6.6) 10^3/uL Lymph # (Auto) (1.5-3.5) 10^3/uL [place] # (Auto) (0.0-1.0) 10^3/uL Eos # (Auto) (0.0-0.7) 10^3/uL Baso # (Auto) (0.0-0.1) 10^3/uL Absolute Nucleated RBC x10^3/uL Nucleated RBC % /100WBC Sodium (135-145) mmol/L Potassium (3.5-5.0) mmol/L Chloride (101-111) mmol/L Carbon Dioxide (21-32) mmol/L Anion Gap (6-13) BUN (6-20) mg/dL Creatinine (0.4-1.0) mg/dL Estimated GFR (MDRD) (>89) Glucose (70-100) mg/dL POC Whole Bld Glucose 151 H 143 H 144 H (70 - 100) mg/dL Calcium (8.5-10.3) mg/dL Albumin (3.2-5.5) g/dL Last Dose Date Last Dose Time Vancomycin Trough (10.0-20.0) ug/mL 08/19/21 Range/Units 11:00 WBC (4.8-10.8) x10^3/uL RBC (4.20-5.40) 10^6/uL Hgb (12.0-16.0) g/dL Hct (37.0-47.0) % MCV (81.0-99.0) fL MCH (27.0-31.0) pg MCHC (32.0-36.0) g/dL RDW (12.0-15.0) % Plt Count (130-450) 10^3/uL MPV (7.9-10.8) fL Neut # (Auto) (1.5-6.6) 10^3/uL Lymph # (Auto) (1.5-3.5) 10^3/uL [place] # (Auto) (0.0-1.0) 10^3/uL Eos # (Auto) (0.0-0.7) 10^3/uL Baso # (Auto) (0.0-0.1) 10^3/uL Absolute Nucleated RBC x10^3/uL Nucleated RBC % /100WBC Sodium (135-145) mmol/L Potassium (3.5-5.0) mmol/L Chloride (101-111) mmol/L Carbon Dioxide (21-32) mmol/L Anion Gap (6-13) BUN (6-20) mg/dL Creatinine (0.4-1.0) mg/dL Estimated GFR (MDRD) (>89) Glucose (70-100) mg/dL POC Whole Bld Glucose (70 - 100) mg/dL Calcium (8.5-10.3) mg/dL Albumin (3.2-5.5) g/dL Last Dose Date 08/19/20 Last Dose Time 0157 Vancomycin Trough 21.3 H (10.0-20.0) ug/mL - Current Medications Current Medications: Current Medications Generic Name Dose Route Start Last Admin Trade Name Freq PRN Reason Stop Dose Admin Acetaminophen 650 mg 08/04/21 14:01 08/12/21 23:39 Acetaminophen 325 Mg Tablet PO 650 mg Q4HR PRN Administration PAIN Albuterol 2.5 mg 08/04/21 17:26 08/19/21 17:11 Albuterol Neb 2.5 Mg/3 Ml INH 2.5 mg RTQ4H PRN Administration Wheezing Albuterol 2.5 mg 08/15/21 22:00 08/20/21 05:07 Albuterol Neb 2.5 Mg/3 Ml INH 2.5 mg TID INGA Administration Enoxaparin Sodium 40 mg 08/05/21 09:00 08/19/21 08:11 Enoxaparin 40 Mg/0.4 Ml Syringe SUBQ 40 mg DAILY IN[facility] Administration Furosemide 40 mg 08/19/21 14:00 08/20/21 06:25 Furosemide 40 Mg/4 Ml Vial IVP 40 mg 0600,1200,1800 INGA Administration Cefepime HCl 2 gm/ Sodium 100 mls @ 200 mls/hr 08/07/21 09:00 08/19/21 22:00 Chloride IV Infused BID [facility] Infusion Metronidazole 500 mg in 100 mls @ 100 mls/hr 08/07/21 15:00 08/20/21 02:00 Flagyl 500 Mg/100 Ml IV Infused Q8H [facility] Infusion Multivitamins 10 ml/ TRACE 2,034.3333 mls @ 60 mls/hr 08/15/21 19:00 08/19/21 19:32 ELEMENTS 1 ml/ Potassium IV 60 mls/hr Chloride 40 meq/ Potassium TPN/PPN INGA Administration Phosphate 10 mmol/ Amino Acids /Electrolytes Protocol Albumin Human 12.5 gm in 50 mls @ 50 mls/hr 08/19/21 12:00 08/19/21 15:14 Albuminar-25 IV 08/22/21 00:01 Infused DAILY [facility] Infusion Vancomycin HCl 1 gm/ 500 mls @ 250 mls/hr 08/20/21 02:00 08/20/21 04:42 Vancomycin HCl 500 mg/ Sodium IV Infused Chloride Q12H [facility] Infusion Insulin Human Regular 1 - 9 unit 08/10/21 18:00 08/20/21 06:25 Insulin Regular Human 300 Unit/3 Ml Vial SUBQ Not Given Q6HR [facility] Protocol Metoclopramide HCl 5 mg 08/13/21 18:00 08/20/21 06:34 Metoclopramide 10 Mg/2 Ml Vial IVP 5 mg Q6HR INGA Administration Metoprolol Tartrate 5 mg 08/12/21 17:00 08/20/21 04:51 Metoprolol 5 Mg/5 Ml Vial IVP 5 mg Q6H IN[facility] Administration Morphine Sulfate 2 mg 08/06/21 10:21 08/20/21 02:21 Morphine 2 Mg/Ml Carpuject IVP 2 mg Q2HR PRN Administration PAIN Pantoprazole Sodium 40 mg 08/05/21 07:00 08/20/21 06:26 Pantoprazole 40 Mg Tablet PO 40 mg QDAC [facility] Administration Polyethylene Glycol 17 gm 08/16/21 21:00 08/19/21 21:31 Polyethylene Glycol 3350 17 Gm Packet PO 17 gm BID INGA Administration Sodium Chloride 10 ml 08/04/21 17:00 08/20/21 00:05 Sodium Chloride Flush 0.9% 10 Ml Syringe IVP 10 ml 0100,0900,1700 IN[facility] Administration Sodium Chloride 10 ml 08/04/21 14:01 08/19/21 19:32 Sodium Chloride Flush 0.9% 10 Ml Syringe IVP 10 ml PRN PRN Administration NEEDED PER PROVIDER ORDERS - Physical Exam Wound/Incisions: positive: No drainage General Appearance: positive: No acute distress, Alert Eyes Bilateral: positive: Normal inspection, PERRL, EOMI ENT: positive: ENT inspection nml Respiratory: positive: No respiratory distress, Breath sounds nml Cardiovascular: positive: Regular rate & rhythm Abdomen: positive: Nml bowel sounds, Other (Ostomy producing soft brown stool now) Rectal: positive: Non-tender Skin: positive: Color nml Neurologic/Psychiatric: positive: Oriented x3 Comments/Other: Wound vac is in place and functioning ABX Reporting Has patient been on IV antibiotics over the past 48 hours?: Yes Impression/Plan - Problem List Problem List: Perforated colon secondary to severe constipation 1. She is able to eat but afraid to eat. 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 2. Ostomy is viable and working. Continue current MiraLAX twice daily regimen 3.White count still elevated but improving. We will continue current regimen 4.Drain output is serous and minimal. We will plan to remove those tomorrow if she continues to do better. 5.Asthma-seems to be under good control but she is always uncomfortable and needs her breathing treatment every 4 hours. 6. Prefers morphine over oxycodone but we need to switch to all oral meds. We will stop the morphine and use oxycodone, Tylenol, and Toradol as needed for pain control. 6. Wound VAC is in place and working. Tentatively plan to take her to the operating room on Thursday for sedation so that we can close her abdominal wound. As her nutritional status improves, I expect will have more success.
[2021-08-20] MEDS: ALBUMIN 25% 12.5 GM/50 ML VIAL IV SCH (10:51)
[2021-08-20] MEDS: INSULIN ASPART 300 UNIT/3 ML PEN SUBQ SCH ×2 (17:26→20:47)
[2021-08-20] MEDS: SODIUM CHLORIDE FLUSH 0.9% 10 ML SYRINGE IVP PRN (18:24)
[2021-08-20] MEDS: ACETAMINOPHEN 325 MG TABLET PO PRN (18:28)
[2021-08-20] MEDS: METOPROLOL TARTRATE 25 MG TABLET PO SCH (20:59)
[2021-08-21] MEDS: METOCLOPRAMIDE 10 MG/2 ML VIAL IVP SCH ×5 (00:42→23:37)
[2021-08-21] MEDS: SODIUM CHLORIDE FLUSH 0.9% 10 ML SYRINGE IVP SCH ×4 (00:43→23:37)
[2021-08-21] MEDS: metroNIDAZOLE 500 MG/100 ML 500 MG/100 ML BAG IV SCH ×3 (00:43→17:56)
[2021-08-21] MEDS: VANCOMYCIN INJ 1 GM, VANCOMYCIN INJ 500 MG in SODIUM CHLORIDE 0.9% 500 ML IV SCH ×2 (01:54→13:50)
[2021-08-21] MEDS: ALBUTEROL NEB 2.5 MG/3 ML INH PRN ×2 (02:01→15:15)
[2021-08-21] MEDS: ALBUTEROL NEB 2.5 MG/3 ML INH SCH ×3 (05:52→19:12)
[2021-08-21] MEDS: oxyCODONE 5 MG TABLET PO PRN ×2 (05:52→17:26)
[2021-08-21] MEDS: PANTOPRAZOLE 40 MG TABLET PO SCH (05:52)
[2021-08-21] MEDS: FUROSEMIDE 40 MG/4 ML VIAL IVP SCH ×3 (05:53→17:55)
[2021-08-21 06:58] LABS: BASOPHILS # (AUTO) 0.1 10^3/uL (0.0-0.1); BASOPHILS % (AUTO) 0.4 %; EOSINOPHILS # (AUTO) 0.1 10^3/uL (0.0-0.7); EOSINOPHILS % (AUTO) 0.3 %; HCT - HEMATOCRIT 30.8 % (37.0-47.0); HGB - HEMOGLOBIN 9.9 g/dL (12.0-16.0); LYMPHOCYTES # (AUTO) 0.8 10^3/uL (1.5-3.5); LYMPHOCYTES % (AUTO) 3.7 %; MEAN CORPUSCULAR HEMOGLOBIN 29.9 pg (27.0-31.0); MEAN CORPUSCULAR HGB CONC 32.1 g/dL (32.0-36.0); MEAN CORPUSCULAR VOLUME 93.1 fL (81.0-99.0); MEAN PLATELET VOLUME 8.3 fL (7.9-10.8); MONOCYTES # (AUTO) 0.9 10^3/uL (0.0-1.0); MONOCYTES % (AUTO) 4.2 %; NEUTROPHILS # (AUTO) 18.2 10^3/uL (1.5-6.6); NEUTROPHILS % (AUTO) 90.4 %; PLT - PLATELET COUNT 592 10^3/uL (130-450); RED BLOOD COUNT 3.31 10^6/uL (4.20-5.40); RED CELL DISTRIBUTION WIDTH 13.9 % (12.0-15.0); WHITE BLOOD COUNT 20.1 x10^3/uL (4.8-10.8)
[2021-08-21 07:00] LABS: SLIDE REVIEW? Indicated
[2021-08-21 07:05] LABS: CALCIUM 8.4 mg/dL (8.5-10.3); CREATININE 0.4 mg/dL (0.4-1.0); POTASSIUM 3.2 mmol/L (3.5-5.0)
--- NOTE | 2021-08-21 07:48 | PROVIDER PROGRESS NOTE ---
Subjective - Prog Note Date Prog Note Date: 08/21/21 Prog Note Time: 07:48 - Subjective Subjective: The ostomy nurse saw her and she is slowly able to start taking care of her own ostomy now. General surgery plans on tentatively taken her to the operating room August 23 to close the open wound. Overnight the [facility] did not report any new problems. Surgeon is Worried that the patient has an abscess as a complication. And abdomen pelvis CT was repeated and she has small bilateral pleural effusions, a posterior right middle lobe opacity that is stable. Suture line in the left lower quadrant of the bowel. An ostomy. Oral contrast extends into the distal ileum with extravasation. No bowel obstruction. Large hiatal hernia. 2 surgical drains. There is a small amount of left upper abdomen fluid and along the left paracolic gutter that is 8.1 x 2.9 cm. The lower drain seems to be in the midst of this. Reactive nodes are seen. Diffuse soft tissue anasarca. Current Medications - Current Medications Current Medications: Active Medications Acetaminophen (Acetaminophen 325 Mg Tablet) 650 mg PO Q4HR PRN PRN Reason: PAIN Last Admin: 08/20/21 18:28 Dose: 650 mg Albuterol (Albuterol Neb 2.5 Mg/3 Ml) 2.5 mg INH RTQ4H PRN PRN Reason: Wheezing Last Admin: 08/21/21 02:01 Dose: 2.5 mg Albuterol (Albuterol Neb 2.5 Mg/3 Ml) 2.5 mg INH TID [facility] Last Admin: 08/21/21 05:52 Dose: 2.5 mg Enoxaparin Sodium (Enoxaparin 40 Mg/0.4 Ml Syringe) 40 mg SUBQ DAILY [facility] Last Admin: 08/20/21 09:56 Dose: 40 mg Furosemide (Furosemide 40 Mg/4 Ml Vial) 40 mg IVP 0600,1200,1800 [facility] Last Admin: 08/21/21 05:53 Dose: 40 mg Cefepime HCl 2 gm/ Sodium (Chloride) 100 mls @ 200 mls/hr IV BID [facility] Last Infusion: 08/20/21 21:38 Dose: Infused Metronidazole (Flagyl 500 Mg/100 Ml) 500 mg in 100 mls @ 100 mls/hr IV Q8H [facility] Last Infusion: 08/21/21 01:49 Dose: Infused Albumin Human (Albuminar-25) 12.5 gm in 50 mls @ 50 mls/hr IV DAILY [facility] Stop: 08/22/21 00:01 Last Infusion: 08/20/21 12:00 Dose: Infused Vancomycin HCl 1 gm/Vancomycin HCl 500 mg/ Sodium Chloride 500 mls @ 250 mls/hr IV Q12H [facility] Last Infusion: 08/21/21 03:59 Dose: Infused Insulin Aspart (Insulin Aspart 300 Unit/3 Ml Pen) 1 - 9 unit SUBQ 0800,1200,1700,2100 [facility]; Protocol Last Admin: 08/20/21 20:47 Dose: Not Given Metoclopramide HCl (Metoclopramide 10 Mg/2 Ml Vial) 5 mg IVP Q6HR [facility] Last Admin: 08/21/21 05:52 Dose: 5 mg Metoprolol Tartrate (Metoprolol Tartrate 25 Mg Tablet) 25 mg PO BID [facility] Last Admin: 08/20/21 20:59 Dose: 25 mg Mineral Oil (Min Oil/Dimethicon/Coconut Oil 92 Gm Tube) 1 applic TOP PRN PRN PRN Reason: Skin Care Oxycodone HCl (Oxycodone 5 Mg Tablet) 5 mg PO Q4HR PRN PRN Reason: PAIN Last Admin: 08/21/21 05:52 Dose: 5 mg Pantoprazole Sodium (Pantoprazole 40 Mg Tablet) 40 mg PO QDAC [facility] Last Admin: 08/21/21 05:52 Dose: 40 mg Polyethylene Glycol (Polyethylene Glycol 3350 17 Gm Packet) 17 gm PO BID [facility] Last Admin: 08/20/21 20:58 Dose: 17 gm Sodium Chloride (Sodium Chloride Flush 0.9% 10 Ml Syringe) 10 ml IVP 0100,0900,1700 [facility] Last Admin: 08/21/21 00:43 Dose: 10 ml Sodium Chloride (Sodium Chloride Flush 0.9% 10 Ml Syringe) 10 ml IVP PRN PRN PRN Reason: NEEDED PER PROVIDER ORDERS Last Admin: 08/20/21 18:24 Dose: 20 ml Albuterol Sulf [Ventolin Hfa Inhaler] 2 puffs INH Q4H PRN 06/12/16 Aspirin 81 mg PO DAILY 06/12/16 lisinopriL [Lisinopril] 20 mg PO DAILY 06/12/16 polyethylene glycoL 3350 [Miralax] 17 gm PO DAILY 08/04/21 Objective - Vital Signs/Intake & Output Reviewed Vital Signs: Yes Intake & Output: Intake & Output 08/18/21 08/19/21 08/20/21 08/21/21 23:59 23:59 23:59 23:59 Intake Total 3590.667 3433.9933 3507 750 Output Total 485 1673 2002 150 Balance 3105.667 1760.9933 1505 600 - Objective General Appearance: positive: Alert, Other (Fatigued appearing white female, very worried about eggs in her diet and is really not taking much intake by mouth to improve nutrition) Eyes Bilateral: positive: PERRL, EOMI ENT: positive: No signs of dehydration Neck: positive: No JVD. negative: Stiff neck Respiratory: positive: No respiratory distress, Other (Very diminished at the bases, but no egophony). negative: Wheezes, Rales, Rhonchi Cardiovascular: positive: Regular rate & rhythm. negative: Gallop/S4, Friction rub Abdomen: positive: Other (Ostomy in place, vertical open wound in place. No surrounding cellulitis or redness or induration.) Skin: positive: Warm, Dry, Pallor Extremities: positive: Pedal edema Neurologic/Psychiatric: positive: Oriented x3, CN's nml (2-12). negative: Motor nml (Severe weakness and fatigue. Is to struggle for her to sit up in bed, or to sit up in a chair.) - Lab Results Fish Bones: 08/21/21 06:48 08/21/21 06:48 Other Labs: Lab Results x24hrs 08/21/21 08/21/21 08/20/21 Range/Units 06:48 06:48 20:43 WBC 20.1 H (4.8-10.8) x10^3/uL RBC 3.31 L (4.20-5.40) 10^6/uL Hgb 9.9 L (12.0-16.0) g/dL Hct 30.8 L (37.0-47.0) % MCV 93.1 (81.0-99.0) fL MCH 29.9 (27.0-31.0) pg MCHC 32.1 (32.0-36.0) g/dL RDW 13.9 (12.0-15.0) % Sodium 138 (135-145) mmol/L Potassium 3.2 L (3.5-5.0) mmol/L Chloride 99 L (101-111) mmol/L Carbon Dioxide 30 (21-32) mmol/L Anion Gap 9.0 (6-13) BUN 16 (6-20) mg/dL Creatinine 0.4 (0.4-1.0) mg/dL Estimated GFR (MDRD) 159 (>89) Glucose 82 (70-100) mg/dL POC Whole Bld Glucose 119 H (70 - 100) mg/dL Calcium 8.4 L (8.5-10.3) mg/dL 08/20/21 08/20/21 Range/Units 17:25 12:07 WBC (4.8-10.8) x10^3/uL RBC (4.20-5.40) 10^6/uL Hgb (12.0-16.0) g/dL Hct (37.0-47.0) % MCV (81.0-99.0) fL MCH (27.0-31.0) pg MCHC (32.0-36.0) g/dL RDW (12.0-15.0) % Sodium (135-145) mmol/L Potassium (3.5-5.0) mmol/L Chloride (101-111) mmol/L Carbon Dioxide (21-32) mmol/L Anion Gap (6-13) BUN (6-20) mg/dL Creatinine (0.4-1.0) mg/dL Estimated GFR (MDRD) (>89) Glucose (70-100) mg/dL POC Whole Bld Glucose 111 H 164 H (70 - 100) mg/dL Calcium (8.5-10.3) mg/dL ABX Reporting Has patient been on IV antibiotics over the past 48 hours?: Yes Sepsis Event Note (H) - Evaluation Current Stage of Sepsis: Resolved Possible source of Sepsis: positive: GI tract/intra-abdominal - Sepsis Criteria Sepsis Criteria: Recorded Heart Rate greater than 90 bpm, WBC count greater than 10% bands, WBC count greater than 12,000 or less than 4000, Metabolic: lactate > 2 mmol/L Assessment/Plan - Problem List (1) Anasarca Impression: She has severe ongoing anasarca which is secondary to all the IV fluids she receives; what she needed for severe sepsis, now her tpn, all her K riders, and iv antibx, needed because she is not taking po. Her Echocardiogram showed no evidence of heart failure and leg duplex doppler was negative for DVT. She is 39 L pos since admission. Add 1505 today from 08/20 I/O. Weight was 74 kg on admission and she is 94 kg today. 08/20 she was 95.5. 08/21 she is 94 Kg so she is going in the correct trend for her weight now that she is mobilizing and losing some of her edema. Her fluid status had been (+) daily, even after iv Lasix was started and we have increased Lasix doses daily and decreased her iv TPN from 70 cc/hr to 60 cc/hr. On increasing doses of lasix she is now on Lasix t.i.d . RN that took care of her 4 days ago notes that her exam is much better today with mobilization being somewhat successful. Her last serum Alb was 1.5 several days ago, therefore low oncotic pressure is also adding to the edema. IV Albumen daily for 3 days and that was started 08/19. Check Alb level with a.m. labs. Continue with leg elevation when OOB and promote using the ordered SCDs for leg compression. We cannot order elev legs above head because she is already SOB, and occais wheezing. Continue to follow daily weight and I's and O's, and daily BMP & Mg. Current treatment seems to be working by exam but not by I/O (2) Wheezing Impression: We cannot order elevate legs above head for draining her anasarca, because she is already SOB, and occais wheezing. She has a Hx of Albuterol use priorto admission. She likes the morphine for the and repetitively asks for it even though I have explained we are trying to diminish use of opioids in a post op patient whose casue of bowel rupture was stercoral perforation. Chest x-ray 08/19 has a stable right internal jugular catheter. Stable small left and trace right pleural effusion with atelectasis or consolidation of the adjacent lung bases. Continue scheduled nebs tid plus nebs prn q4h, since these help her, she report ed. Add perforomist and budesonide. (3) Perforated abdominal viscus Impression: Present on admission and was getting worse. Repeat CT on August 09 showed worsening pneumoperitoneum and ascites. Bandemia was getting worse on her white cell count. An attempt was made to transfer her to a higher level of care and could not be done in a timely fashion. So she underwent an exploratory laparotomy with sigmoid colectomy and and and colectomy and Funk's pouch that day. She had postoperative ileus. She was started on TPN. She has a wound V AC. Initial antibiotics were Zosyn and Flagyl. She was then changed to cefepime and Flagyl. Vancomycin is been the last Few days because of rising white cell count. General surgery feels she has an enterococcal infection. Since the addition of vancomycin her white cell count has been coming down. Started on a mechanical soft diet 08/19. She is slowly improving. 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 Medications were all still IV 08/20 so I changed metoprolol and opiates to po. She had the wound VAC replaced over the weekend of 08/17. This was done because it was not sealed correctly and there was leaking. It was replaced by the nurse practitioner who is working that day and is also the director of the wound care program at [facility]. The plan was to pull the wound VAC, close upper open wound with retention sutures 08/23 and continue with ostomy care. She did see ostomy nurse 2/2 and that note states she will be seen daily. Now the plan is to drain the fluid seen on CT and delay the wound closure until next week. Continue to work on nutrition. (4) Status post colostomy, POD #12 Impression: She had a colectomy with diverting colostomy and Funk's pouch 08/09. She has a postoperative ileus. NPO status changed to po and is on TPN. She is not eating well due to her fear of egg allergy. Nutrition services working with her to find ways to get her to eat and they are workiing on getting "packaged" food so that her food has not "touched" anything in the kitchen. She can't get lipids bc of this. I am suggesting ensure, etc. if possible.They are now trying pureed carrots and turkey. Will replace K and Phos in TPN Continue iv antibx, pain meds prn, instruciton w ostomy nurse Follow BMP, Mg and PO4 daily (5) Hypokalemia Impression: Now that she is on Lasix, she needs intermittent replacement of K with iv riders, and it is in her TPN. Monitor BMP and Mg daily replace K again today. (6) Hyperglycemia Impression: This continues and is likely secondary to the dextrose in her TPN. We have adjusted the amount of dextrose and her blood glucose became in the acceptable range. Off TPN 08/20/21. Her A1c was within normal limits. Today hypoglycemia since NPO for CT and we are given OJ and feeding her. I did order D5 but she ended up not needing it. (7) Severe sepsis Impression: Resolved. This was secondary to perforated abdominal viscus. (8) Atrial fibrillation with RVR Impression: Resolved. She had a brief episode of Afib with RVR early on during this hospitalization but she has since been in a sinus rhythm. Her heart rates are stable. We are holding anticoagulation given the recent surgical intervention and the fact that her CHADS score is 0. Tele discontinued 08/20/21
[2021-08-21 07:58] LABS: PLATELET ESTIMATE, MANUAL INCREASED (>450,000) (NORMAL); PLATELET MORPHOLOGY NORMAL APPEARANCE (NORMAL)
[2021-08-21 07:59] LABS: RBC MORPHOLOGY (MULTIPLE) 1+ HYPOCHROMASIA (NORMAL)
[2021-08-21] MEDS ORDERED: POTASSIUM CHLORIDE 20 MEQ/15 ML UDC PO SCH (09:00)
--- NOTE | 2021-08-21 09:07 | PROVIDER PROGRESS NOTE ---
Subjective - General Admit Date: 08/04/21 Procedure Date: 08/09/21 Post Op Days: 12 Procedure Performed: Laparotomy with Kenneth procedure - Review of Systems Wound/Incisions: positive: No drainage Drain Type: Mo Drain Output Description: Serous General: positive: Weakness HEENT: positive: No symptoms Pulmonary: negative: Shortness of breath Cardiovascular: positive: No symptoms Gastrointestinal: positive: Abdominal pain. negative: Nausea, Vomiting Genitourinary: positive: No symptoms Skin: positive: Other (Still frustrated about the swelling) All Other Systems: positive: Reviewed and negative - Other Other Information/Narrative: Feeling better each day but continues to be afraid to eat. She reports the pureed turkey was good but she elected not to eat it last night because she was afraid there might be egg mixed in. She wants me to call her daughter Donna and discuss her care. She had originally planned to go to her daughter [place]'s house after discharge but Donna and her may be able to come to [place]'s house on be so that she would not need to travel. Shortness of breath con tinues to be an issue. I reviewed her ct with the radiologist. She has a fluid collection in the right upper quadrant that appears to communicate with another collection in the right lower quadrant. The radiologist has suggested CT guided drainage and I have ordered that. Objective - Patient Data Weight: Weight 08/19/21 08/20/21 08/21/21 23:59 23:59 23:59 Weight (kg) 94 kg Intake & Output: Intake and Output Totals x24h 08/19/21 08/20/21 08/21/21 23:59 23:59 23:59 Intake Total 3433.9933 3507 750 Output Total 1673 2002 150 Balance 1760.9933 1505 600 - Lab Results Lab Results: 08/21/21 06:48 08/21/21 06:48 Other Lab Results: Lab Results x24hrs 08/21/21 08/21/21 08/21/21 Range/Units 08:09 06:48 06:48 WBC 20.1 H (4.8-10.8) x10^3/uL RBC 3.31 L (4.20-5.40) 10^6/uL Hgb 9.9 L (12.0-16.0) g/dL Hct 30.8 L (37.0-47.0) % MCV 93.1 (81.0-99.0) fL MCH 29.9 (27.0-31.0) pg MCHC 32.1 (32.0-36.0) g/dL RDW 13.9 (12.0-15.0) % Plt Count 592 H (130-450) 10^3/uL MPV 8.3 (7.9-10.8) fL Neut # (Auto) 18.2 H (1.5-6.6) 10^3/uL Lymph # (Auto) 0.8 L (1.5-3.5) 10^3/uL Archer # (Auto) 0.9 (0.0-1.0) 10^3/uL Eos # (Auto) 0.1 (0.0-0.7) 10^3/uL Baso # (Auto) 0.1 (0.0-0.1) 10^3/uL Absolute Nucleated RBC 0.00 x10^3/uL Nucleated RBC % 0.0 /100WBC Manual Slide Review Indicated Platelet Estimate INCREASED (>450,000) (NORMAL) Platelet Morphology NORMAL APPEARANCE (NORMAL) RBC Morph Micro Appear 1+ HYPOCHROMASIA (NORMAL) Sodium 138 (135-145) mmol/L Potassium 3.2 L (3.5-5.0) mmol/L Chloride 99 L (101-111) mmol/L Carbon Dioxide 30 (21-32) mmol/L Anion Gap 9.0 (6-13) BUN 16 (6-20) mg/dL Creatinine 0.4 (0.4-1.0) mg/dL Estimated GFR (MDRD) 159 (>89) Glucose 82 (70-100) mg/dL POC Whole Bld Glucose 78 (70 - 100) mg/dL Calcium 8.4 L (8.5-10.3) mg/dL 08/20/21 08/20/21 08/20/21 Range/Units 20:43 17:25 12:07 WBC (4.8-10.8) x10^3/uL RBC (4.20-5.40) 10^6/uL Hgb (12.0-16.0) g/dL Hct (37.0-47.0) % MCV (81.0-99.0) fL MCH (27.0-31.0) pg MCHC (32.0-36.0) g/dL RDW (12.0-15.0) % Plt Count (130-450) 10^3/uL MPV (7.9-10.8) fL Neut # (Auto) (1.5-6.6) 10^3/uL Lymph # (Auto) (1.5-3.5) 10^3/uL Archer # (Auto) (0.0-1.0) 10^3/uL Eos # (Auto) (0.0-0.7) 10^3/uL Baso # (Auto) (0.0-0.1) 10^3/uL Absolute Nucleated RBC x10^3/uL Nucleated RBC % /100WBC Manual Slide Review Platelet Estimate (NORMAL) Platelet Morphology (NORMAL) RBC Morph Micro Appear (NORMAL) Sodium (135-145) mmol/L Potassium (3.5-5.0) mmol/L Chloride (101-111) mmol/L Carbon Dioxide (21-32) mmol/L Anion Gap (6-13) BUN (6-20) mg/dL Creatinine (0.4-1.0) mg/dL Estimated GFR (MDRD) (>89) Glucose (70-100) mg/dL POC Whole Bld Glucose 119 H 111 H 164 H (70 - 100) mg/dL Calcium (8.5-10.3) mg/dL - Current Medications Current Medications: Current Medications Generic Name Dose Route Start Last Admin Trade Name Freq PRN Reason Stop Dose Admin Acetaminophen 650 mg 08/04/21 14:01 08/20/21 18:28 Acetaminophen 325 Mg Tablet PO 650 mg Q4HR PRN Administration PAIN Albuterol 2.5 mg 08/04/21 17:26 08/21/21 02:01 Albuterol Neb 2.5 Mg/3 Ml INH 2.5 mg RTQ4H PRN Administration Wheezing Albuterol 2.5 mg 08/15/21 22:00 08/21/21 05:52 Albuterol Neb 2.5 Mg/3 Ml INH 2.5 mg TID INGA Administration Enoxaparin Sodium 40 mg 08/05/21 09:00 08/20/21 09:56 Enoxaparin 40 Mg/0.4 Ml Syringe SUBQ 40 mg DAILY INGA Administration Furosemide 40 mg 08/19/21 14:00 08/21/21 05:53 Furosemide 40 Mg/4 Ml Vial IVP 40 mg 0600,1200,1800 INGA Administration Cefepime HCl 2 gm/ Sodium 100 mls @ 200 mls/hr 08/07/21 09:00 08/20/21 21:38 Chloride IV Infused BID INGA Infusion Metronidazole 500 mg in 100 mls @ 100 mls/hr 08/07/21 15:00 08/21/21 01:49 Flagyl 500 Mg/100 Ml IV Infused Q8H INGA Infusion Albumin Human 12.5 gm in 50 mls @ 50 mls/hr 08/19/21 12:00 08/20/21 12:00 Albuminar-25 IV 08/22/21 00:01 Infused DAILY INGA Infusion Vancomycin HCl 1 gm/ 500 mls @ 250 mls/hr 08/20/21 02:00 08/21/21 03:59 Vancomycin HCl 500 mg/ Sodium IV Infused Chloride Q12H INGA Infusion Insulin Aspart 1 - 9 unit 08/20/21 17:30 08/20/21 20:47 Insulin Aspart 300 Unit/3 Ml Pen SUBQ Not Given 0800,1200,1700,2100 [facility] Protocol Metoclopramide HCl 5 mg 08/13/21 18:00 08/21/21 05:52 Metoclopramide 10 Mg/2 Ml Vial IVP 5 mg Q6HR INGA Administration Metoprolol Tartrate 25 mg 08/20/21 21:00 08/20/21 20:59 Metoprolol Tartrate 25 Mg Tablet PO 25 mg BID INGA Administration Oxycodone HCl 5 mg 08/19/21 11:04 08/21/21 05:52 Oxycodone 5 Mg Tablet PO 5 mg Q4HR PRN Administration PAIN Pantoprazole Sodium 40 mg 08/05/21 07:00 08/21/21 05:52 Pantoprazole 40 Mg Tablet PO 40 mg QDAC INGA Administration Polyethylene Glycol 17 gm 08/16/21 21:00 08/20/21 20:58 Polyethylene Glycol 3350 17 Gm Packet PO 17 gm BID INGA Administration Sodium Chloride 10 ml 08/04/21 17:00 08/21/21 00:43 Sodium Chloride Flush 0.9% 10 Ml Syringe IVP 10 ml 0100,0900,1700 INGA Administration Sodium Chloride 10 ml 08/04/21 14:01 08/20/21 18:24 Sodium Chloride Flush 0.9% 10 Ml Syringe IVP 20 ml PRN PRN Administration NEEDED PER PROVIDER ORDERS - Physical Exam Comments/Other: Lungs: good air movement bilaterally without wheezing CV: RRR Abd: Wound vac remains in place with adequate suction. Ostomy is viable and working. Active bowel sounds. Ext: edema is greatly improved. Legs are much softer ABX Reporting Has patient been on IV antibiotics over the past 48 hours?: Yes Impression/Plan - Problem List Problem List: Perforated colon secondary to extreme constipation 1. FEN- continues to be a challenge. Dr. Sanchez and I have both spoken with her today regarding the necessity of good nutrition. She says she will try to eat more 2. Asthma - a continued concern though she objectively looks good. Dr. Sanchez is going to reassess her medication regimen and see if improvements could be offered 3. Ostomy teaching - a continued project 4. WBCs stalled at 20. CT guided drainage tomorrow and will culture any fluid obtained. Continue antibiotic regimen for now 5. PT - slow improvement at edema improves - she is very weak and deconditioned and will need HH for PT after discharge.
[2021-08-21] MEDS: INSULIN ASPART 300 UNIT/3 ML PEN SUBQ SCH ×4 (09:16→21:33)
[2021-08-21] MEDS: ALBUMIN 25% 12.5 GM/50 ML VIAL IV SCH (09:16)
[2021-08-21] MEDS ORDERED: IOVERSOL 320 100 ML VIAL IVP ONE ×2 (09:48→17:23)
[2021-08-21] MEDS ORDERED: IOPAMIDOL-300 50 ML VIAL ONE (09:48)
[2021-08-21] MEDS: CEFEPIME 2 GM in SODIUM CHLORIDE 0.9% MINIBAG 100 ML IV SCH ×2 (10:06→21:33)
[2021-08-21] MEDS: polyethylene glycoL 3350 17 GM PACKET PO SCH ×2 (10:06→21:33)
[2021-08-21] MEDS: METOPROLOL TARTRATE 25 MG TABLET PO SCH ×2 (10:07→21:36)
[2021-08-21] MEDS: ENOXAPARIN 40 MG/0.4 ML SYRINGE SUBQ SCH (10:07)
[2021-08-21] MEDS: POTASSIUM CHLORIDE 20 MEQ TABLET PO SCH ×2 (10:55→21:34)
--- NOTE | 2021-08-21 12:38 | CT Report ---
PROCEDURE: Abdomen/Pelvis W INDICATIONS: Perforated viscus CONTRAST: IV CONTRAST: Optiray 320 ml: 100 PO CONTRAST: Isovue 300 ml50 TECHNIQUE: After the administration of oral and intravenous contrast, 5 mm thick sections acquired from the diap hragms to the symphysis. 5 mm thick coronal and sagittal reformats were acquired. For radiation dos e reduction, the following was used: automated exposure control, adjustment of mA and/or kV accordin g to patient size. COMPARISON: CT abdomen/pelvis 08/09/2021 FINDINGS: Image quality: Excellent. ABDOMEN: Lung bases: Small bilateral pleural effusions are seen at atelectasis of the adjacent lung bases. Pos terior right middle lobe opacity following loss appears stable. Heart size is normal. Solid organs: Small cystic and seen in the inferior right hepatic lobe. Status post cholecystectomy. Biliary system is non dilated. Pancreas enhances normally. Spleen is normal in size. No adrenal no dules. Kidneys demonstrate normal size and enhancement, without hydronephrosis. Right kidney extrar enal pelvis again noted. Peritoneum and bowel: Postsurgical changes are seen from partial colonic resection with suture line in the left lower quadrant. There has been formation of left lower quadrant ostomy. Surgical incision is noted in the anterior abdominal wall. Oral contrast material is seen extending into the distal il eum without extravasation. No oral contrast material is seen within the colon. There are no signs of bowel obstruction. A large hiatal hernia is again seen with the majority of the stomach located above the diaphragm. 2 surgical drains are seen extending into the left upper quadrant with tip adjacent to the diaphragm and into the left lower quadrant with tip looping in the pelvis to the right lower quadrant. Trace pe ripherally enhancing fluid is seen in the left upper abdomen measuring 2.2 x 2.0 cm (31/3). There is a small amount of perisplenic fluid. Peripherally enhancing fluid is seen along the left paracolic gu tter, which measures approximately 8.1 x 2.9 cm on axial images (46/3). The lower drain is seen with tip at appears to be located within an irregular peripherally enhancing fluid collection that measure s up to 8.2 x 5.5 cm on axial images (73/3) and up to 9.5 cm in craniocaudal dimension (24/6). A celia pherally enhancing collection is seen in the right paracolic gutter just inferior to the liver measur ing 6.2 x 3.3 cm (34/3) by 8.3 cm craniocaudal (18/6). There may be a thin fluid tracking connecting this collection to the right lower quadrant collection. Nodes and vessels: Retroperitoneal and mesenteric lymph nodes are increased in number, which is most likely reactive. Aorta and inferior vena cava are normal in size. Miscellaneous: There is diffuse soft tissue anasarca. PELVIS: Genitourinary: Bladder wall thickness is normal. Miscellaneous: Bilateral inguinal hernias are seen containing fat and peripherally enhancing fluid co llections measuring up to 2.6 x 2.4 cm on the right and 2.2 x 1.7 cm on the left. Bones: No suspicious bony lesions. No vertebral body compression fractures. IMPRESSION: 1.Postsurgical changes from partial colectomy and left lower quadrant ostomy formation. No extravasat ion of oral contrast material is seen, although contrast material does not appear to have reached the colon. 2.Two surgical drains are present with significantly decreased volume of fluid in the abdomen and pel vis, particularly within the left abdomen.. 3.A few residual peripherally enhancing fluid collections are seen, the largest of which is at the ri t lower quadrant adjacent to the tip of the more inferior surgical drain. A moderately sized periph erally enhancing fluid collection is also seen in the right abdomen inferior to the liver. Either of these collections could be targeted for percutaneous drainage. 4.Small bilateral pleural effusions with atelectasis of the adjacent lung bases. 5.Small bilateral pleural effusions with adjacent atelectasis. Diffuse soft tissue anasarca. Findings were discussed with the referring physician, Dr. Zhao, by telephone at the time of this dict ation. Reviewed by: Bhavik Marquez MD on 08/21/2021 12:37 PM PST Approved by: Bhavik Marquez MD on 08/21/2021 12:37 PM PST Station ID: [id number]
[2021-08-21] MEDS ORDERED: DEXTROSE 5%-0.9% NACL 1,000 ML IV SCH (13:00)
[2021-08-21] MEDS ORDERED: IOPAMIDOL-300 50 ML VIAL PO ONE (17:24)
[2021-08-21] MEDS: BUDESONIDE 0.5 MG/2 ML NEB INH SCH (19:12)
[2021-08-21] MEDS: FORMOTEROL FUMARATE NEB 20 MCG/2 ML INH SCH (19:12)
[2021-08-21] MEDS: SODIUM CHLORIDE FLUSH 0.9% 10 ML SYRINGE IVP PRN (23:37)
[2021-08-22] MEDS: metroNIDAZOLE 500 MG/100 ML 500 MG/100 ML BAG IV SCH ×3 (02:01→17:25)
[2021-08-22] MEDS: VANCOMYCIN INJ 1 GM, VANCOMYCIN INJ 500 MG in SODIUM CHLORIDE 0.9% 500 ML IV SCH (02:10)
[2021-08-22] MEDS: ACETAMINOPHEN 325 MG TABLET PO PRN ×2 (02:10→11:59)
[2021-08-22] MEDS: oxyCODONE 5 MG TABLET PO PRN ×3 (02:11→23:10)
[2021-08-22] MEDS: PANTOPRAZOLE 40 MG TABLET PO SCH (05:36)
[2021-08-22] MEDS: METOCLOPRAMIDE 10 MG/2 ML VIAL IVP SCH (05:36)
[2021-08-22] MEDS: FUROSEMIDE 40 MG/4 ML VIAL IVP SCH ×3 (05:36→17:26)
[2021-08-22] MEDS: SODIUM CHLORIDE FLUSH 0.9% 10 ML SYRINGE IVP PRN ×3 (05:37→13:18)
[2021-08-22 05:59] LABS: BASOPHILS # (AUTO) 0.1 10^3/uL (0.0-0.1); BASOPHILS % (AUTO) 0.4 %; EOSINOPHILS # (AUTO) 0.2 10^3/uL (0.0-0.7); HCT - HEMATOCRIT 26.9 % (37.0-47.0); HGB - HEMOGLOBIN 8.6 g/dL (12.0-16.0); LYMPHOCYTES # (AUTO) 0.8 10^3/uL (1.5-3.5); LYMPHOCYTES % (AUTO) 5.2 %; MEAN CORPUSCULAR HEMOGLOBIN 29.8 pg (27.0-31.0); MEAN CORPUSCULAR VOLUME 93.1 fL (81.0-99.0); MEAN PLATELET VOLUME 8.6 fL (7.9-10.8); MONOCYTES # (AUTO) 0.7 10^3/uL (0.0-1.0); MONOCYTES % (AUTO) 4.5 %; NEUTROPHILS # (AUTO) 13.8 10^3/uL (1.5-6.6); NEUTROPHILS % (AUTO) 87.7 %; PLT - PLATELET COUNT 532 10^3/uL (130-450); RED BLOOD COUNT 2.89 10^6/uL (4.20-5.40); RED CELL DISTRIBUTION WIDTH 13.7 % (12.0-15.0); WHITE BLOOD COUNT 15.7 x10^3/uL (4.8-10.8)
[2021-08-22 06:03] LABS: CALCIUM 7.8 mg/dL (8.5-10.3); CREATININE 0.5 mg/dL (0.4-1.0); POTASSIUM 3.2 mmol/L (3.5-5.0)
[2021-08-22] MEDS: BUDESONIDE 0.5 MG/2 ML NEB INH SCH ×2 (06:07→18:38)
[2021-08-22] MEDS: FORMOTEROL FUMARATE NEB 20 MCG/2 ML INH SCH (06:07)
[2021-08-22] MEDS: ALBUTEROL NEB 2.5 MG/3 ML INH SCH ×2 (06:07→18:38)
[2021-08-22 06:11] LABS: INR 2.6 (0.8-1.2); PT - PROTHROMBIN TIME 28.7 secs (9.9-12.6)
[2021-08-22] MEDS: INSULIN ASPART 300 UNIT/3 ML PEN SUBQ SCH (07:19)
[2021-08-22] MEDS: POTASSIUM CHLORIDE 20 MEQ TABLET PO SCH ×2 (08:16→20:45)
[2021-08-22] MEDS: polyethylene glycoL 3350 17 GM PACKET PO SCH ×2 (08:16→20:45)
[2021-08-22] MEDS: SODIUM CHLORIDE FLUSH 0.9% 10 ML SYRINGE IVP SCH ×2 (08:16→17:25)
[2021-08-22] MEDS: ENOXAPARIN 40 MG/0.4 ML SYRINGE SUBQ SCH (08:17)
[2021-08-22] MEDS: METOPROLOL TARTRATE 25 MG TABLET PO SCH ×2 (08:17→20:45)
[2021-08-22] MEDS: CEFEPIME 2 GM in SODIUM CHLORIDE 0.9% MINIBAG 100 ML IV SCH ×2 (08:25→20:43)
--- NOTE | 2021-08-22 09:07 | PROVIDER PROGRESS NOTE ---
Subjective - Prog Note Date Prog Note Date: 08/22/21 Prog Note Time: 12:22 - Subjective Subjective: Very sleepy this morning. But able to be woken up with a touch of the shoulder. She just feels uncomfortable, abdomen feels distended. But no chest pain. 95 kg today. Yesterday she was 98 kg. Baseline appears to be about 75 kg. 2207 cc positive yesterday. She does feel more comfortable about the changing of her ostomy bag. She is just starting to do that more on her own. The ostomy nurse has been very helpful she says. Denies chest pain, continues to complain of shortness of breath no matter what she does. Very fearful of laying down. Keeps on asking general surgery to get more morphine for this. Current Medications - Current Medications Current Medications: Active Medications Acetaminophen (Acetaminophen 325 Mg Tablet) 650 mg PO Q4HR PRN PRN Reason: PAIN Last Admin: 08/22/21 02:10 Dose: 650 mg Albuterol (Albuterol Neb 2.5 Mg/3 Ml) 2.5 mg INH RTQ4H PRN PRN Reason: Wheezing Last Admin: 08/21/21 15:15 Dose: 2.5 mg Albuterol (Albuterol Neb 2.5 Mg/3 Ml) 2.5 mg INH TID [facility] Last Admin: 08/22/21 06:07 Dose: 2.5 mg Budesonide (Budesonide 0.5 Mg/2 Ml Neb) 0.5 mg INH RTBID [facility] Last Admin: 08/22/21 06:07 Dose: 0.5 mg Formoterol Fumarate (Formoterol Fumarate Neb 20 Mcg/2 Ml) 20 mcg INH RTBID [facility] Last Admin: 08/22/21 06:07 Dose: 20 mcg Furosemide (Furosemide 40 Mg/4 Ml Vial) 40 mg IVP 0600,1200,1800 [facility] Last Admin: 08/22/21 05:36 Dose: 40 mg Cefepime HCl 2 gm/ Sodium (Chloride) 100 mls @ 200 mls/hr IV BID [facility] Last Admin: 08/22/21 08:25 Dose: 200 mls/hr Metronidazole (Flagyl 500 Mg/100 Ml) 500 mg in 100 mls @ 100 mls/hr IV Q8H [facility] Last Infusion: 08/22/21 03:19 Dose: Infused Vancomycin HCl 1 gm/Vancomycin HCl 500 mg/ Sodium Chloride 500 mls @ 250 mls/hr IV Q12H [facility] Last Infusion: 08/22/21 04:25 Dose: Infused Metoclopramide HCl (Metoclopramide 10 Mg/2 Ml Vial) 5 mg IVP Q6HR [facility] Last Admin: 08/22/21 05:36 Dose: 5 mg Metoprolol Tartrate (Metoprolol Tartrate 25 Mg Tablet) 25 mg PO BID [facility] Last Admin: 08/22/21 08:17 Dose: Not Given Mineral Oil (Min Oil/Dimethicon/Coconut Oil 92 Gm Tube) 1 applic TOP PRN PRN PRN Reason: Skin Care Oxycodone HCl (Oxycodone 5 Mg Tablet) 5 mg PO Q4HR PRN PRN Reason: PAIN Last Admin: 08/22/21 08:16 Dose: 5 mg Pantoprazole Sodium (Pantoprazole 40 Mg Tablet) 40 mg PO QDAC [facility] Last Admin: 08/22/21 05:36 Dose: 40 mg Polyethylene Glycol (Polyethylene Glycol 3350 17 Gm Packet) 17 gm PO BID [facility] Last Admin: 08/21/21 21:33 Dose: 17 gm Potassium Chloride (Potassium Chloride 20 Meq Tablet) 40 meq PO BID [facility] Stop: 08/22/21 21:01 Last Admin: 08/22/21 08:16 Dose: 40 meq Sodium Chloride (Sodium Chloride Flush 0.9% 10 Ml Syringe) 10 ml IVP 0100,0900,1700 [facility] Last Admin: 08/22/21 08:16 Dose: 10 ml Sodium Chloride (Sodium Chloride Flush 0.9% 10 Ml Syringe) 10 ml IVP PRN PRN PRN Reason: NEEDED PER PROVIDER ORDERS Last Admin: 08/22/21 08:25 Dose: 10 ml Albuterol Sulf [Ventolin Hfa Inhaler] 2 puffs INH Q4H PRN 06/12/16 Aspirin 81 mg PO DAILY 06/12/16 lisinopriL [Lisinopril] 20 mg PO DAILY 06/12/16 polyethylene glycoL 3350 [Miralax] 17 gm PO DAILY 08/04/21 Objective - Vital Signs/Intake & Output Reviewed Vital Signs: Yes Vital Signs: Vital Signs x48h Temp Pulse Pulse Resp BP Pulse Ox 08/22/21 07:26 36.7 C 100 16 101/56 L 92 08/22/21 06:08 97 18 Intake & Output: Intake & Output 08/19/21 08/20/21 08/21/21 08/22/21 23:59 23:59 23:59 23:59 Intake Total 3433.9933 3507 2357 600 Output Total 3 2001 150 700 Balance 1760.9933 1505 2207 -100 - Objective General Appearance: positive: No acute distress, Lethargic, Other (Severely overweight, 5 foot 3 inch tall female, sleepy this morning. But appropriate.) Eyes Bilateral: positive: PERRL, EOMI ENT: positive: No signs of dehydration Neck: positive: No JVD. negative: Stiff neck Respiratory: positive: No respiratory distress (But she keeps on saying that she cannot breathe and she complains of orthopnea. That has been present this entire admission.), Other (I added formoterol and budesonide inhalation yesterday, 08/21, she thinks is helping). negative: Wheezes, Rales, Rhonchi Cardiovascular: positive: Regular rate & rhythm. negative: Gallop/S4, Friction rub Abdomen: positive: Other (Large abdominal pannus, midline incision with an open wound that has a wound VAC on it. No surrounding induration or redness or drainage. Ostomy pink, stool in the bag. She has vague generalized abdominal aching but no rebound or guarding. Not severely tender.) Skin: positive: Warm, Dry, Pallor Extremities: positive: Full ROM, Pedal edema Neurologic/Psychiatric: positive: Oriented x3, CN's nml (2-12), Motor nml, Weakness (Generalized weakness due to deconditioning. Moderate.) - Lab Results Fish Bones: 08/22/21 05:21 08/22/21 05:21 Other Labs: Lab Results x24hrs 08/22/21 08/22/21 08/22/21 Range/Units 07:14 05:21 05:21 WBC (4.8-10.8) x10^3/uL RBC (4.20-5.40) 10^6/uL Hgb (12.0-16.0) g/dL Hct (37.0-47.0) % MCV (81.0-99.0) fL MCH (27.0-31.0) pg MCHC (32.0-36.0) g/dL RDW (12.0-15.0) % Plt Count (130-450) 10^3/uL MPV (7.9-10.8) fL Neut # (Auto) (1.5-6.6) 10^3/uL Lymph # (Auto) (1.5-3.5) 10^3/uL Kent # (Auto) (0.0-1.0) 10^3/uL Eos # (Auto) (0.0-0.7) 10^3/uL Baso # (Auto) (0.0-0.1) 10^3/uL Absolute Nucleated RBC x10^3/uL Nucleated RBC % /100WBC PT 28.7 H (9.9-12.6) secs INR 2.6 H (0.8-1.2) Sodium 133 L (135-145) mmol/L Potassium 3.2 L (3.5-5.0) mmol/L Chloride 95 L (101-111) mmol/L Carbon Dioxide 29 (21-32) mmol/L Anion Gap 9.0 (6-13) BUN 14 (6-20) mg/dL Creatinine 0.5 (0.4-1.0) mg/dL Estimated GFR (MDRD) 123 (>89) Glucose 72 (70-100) mg/dL POC Whole Bld Glucose 73 (70 - 100) mg/dL Calcium 7.8 L (8.5-10.3) mg/dL 08/22/21 08/21/21 08/21/21 Range/Units 05:21 21:19 16:34 WBC 15.7 H (4.8-10.8) x10^3/uL RBC 2.89 L (4.20-5.40) 10^6/uL Hgb 8.6 L (12.0-16.0) g/dL Hct 26.9 L (37.0-47.0) % MCV 93.1 (81.0-99.0) fL MCH 29.8 (27.0-31.0) pg MCHC 32.0 (32.0-36.0) g/dL RDW 13.7 (12.0-15.0) % Plt Count 532 H (130-450) 10^3/uL MPV 8.6 (7.9-10.8) fL Neut # (Auto) 13.8 H (1.5-6.6) 10^3/uL Lymph # (Auto) 0.8 L (1.5-3.5) 10^3/uL Kent # (Auto) 0.7 (0.0-1.0) 10^3/uL Eos # (Auto) 0.2 (0.0-0.7) 10^3/uL Baso # (Auto) 0.1 (0.0-0.1) 10^3/uL Absolute Nucleated RBC 0.00 x10^3/uL Nucleated RBC % 0.0 /100WBC PT (9.9-12.6) secs INR (0.8-1.2) Sodium (135-145) mmol/L Potassium (3.5-5.0) mmol/L Chloride (101-111) mmol/L Carbon Dioxide (21-32) mmol/L Anion Gap (6-13) BUN (6-20) mg/dL Creatinine (0.4-1.0) mg/dL Estimated GFR (MDRD) (>89) Glucose (70-100) mg/dL POC Whole Bld Glucose 82 71 (70 - 100) mg/dL Calcium (8.5-10.3) mg/dL 08/21/21 08/21/21 08/21/21 Range/Units 14:58 12:05 11:43 WBC (4.8-10.8) x10^3/uL RBC (4.20-5.40) 10^6/uL Hgb (12.0-16.0) g/dL Hct (37.0-47.0) % MCV (81.0-99.0) fL MCH (27.0-31.0) pg MCHC (32.0-36.0) g/dL RDW (12.0-15.0) % Plt Count (130-450) 10^3/uL MPV (7.9-10.8) fL Neut # (Auto) (1.5-6.6) 10^3/uL Lymph # (Auto) (1.5-3.5) 10^3/uL Kent # (Auto) (0.0-1.0) 10^3/uL Eos # (Auto) (0.0-0.7) 10^3/uL Baso # (Auto) (0.0-0.1) 10^3/uL Absolute Nucleated RBC x10^3/uL Nucleated RBC % /100WBC PT (9.9-12.6) secs INR (0.8-1.2) Sodium (135-145) mmol/L Potassium (3.5-5.0) mmol/L Chloride (101-111) mmol/L Carbon Dioxide (21-32) mmol/L Anion Gap (6-13) BUN (6-20) mg/dL Creatinine (0.4-1.0) mg/dL Estimated GFR (MDRD) (>89) Glucose (70-100) mg/dL POC Whole Bld Glucose 105 H 67 L 66 L (70 - 100) mg/dL Calcium (8.5-10.3) mg/dL ABX Reporting Has patient been on IV antibiotics over the past 48 hours?: Yes Sepsis Event Note (H) - Evaluation Current Stage of Sepsis: Resolved Possible source of Sepsis: positive: GI tract/intra-abdominal - Sepsis Criteria Sepsis Criteria: Recorded Heart Rate greater than 90 bpm, WBC count greater than 10% bands, WBC count greater than 12,000 or less than 4000, Metabolic: lactate > 2 mmol/L Assessment/Plan - Problem List (1) Anasarca Impression: She has severe ongoing anasarca which is secondary to all the IV fluids she receives; what she needed for severe sepsis, now her tpn, all her K riders, and iv antibx, needed because she is not taking po. Her Echocardiogram showed no evidence of heart failure and leg duplex doppler was negative for DVT. She is 39 L pos since admission. Add 1505 from 08/20 and 2200 from 08/21 I/O. Weight was 74 kg on admission and she is 95 kg today. 08/20 she was 95.5. 08/21 she is 94-98 Kg so she is going in the correct trend for her weight now that she is mobilizing and losing some of her edema. Her fluid status had been (+) daily, even after iv Lasix was started and we have increased Lasix doses daily and decreased her iv TPN from 70 cc/hr to 60 cc/hr. On increasing doses of lasix she is now on Lasix t.i.d . RN that took care of her 08/17 noted that her exam is much better 08/20 with mobilization being somewhat successful. Her last serum Alb was 1.5 several days ago, therefore low oncotic pressure is also adding to the edema. IV Albumen daily for 3 days and that was started 08/19. Check Alb level with a.m. labs. last albumin is today. Continue with leg elevation when OOB and promote using the ordered SCDs for leg compression. We cannot order elev legs above head because she is already SOB, and occas wheezing. Continue to follow daily weight and I's and O's, and daily BMP & Mg. Current treatment seems to be working by exam but not by I/O. Ct with contrast done 08/21 so watch for ATN with lasix and contrast (2) Wheezing Impression: We cannot order elevate legs above head for draining her anasarca, because she is already SOB, and occais wheezing. She has a Hx of Albuterol use priorto admission. She likes the morphine for the and repetitively asks for it even though I have explained we are trying to diminish use of opioids in a post op patient whose casue of bowel rupture was stercoral perforation. Chest x-ray 08/19 has a stable right internal jugular catheter. Stable small left and trace right pleural effusion with atelectasis or consolidation of the adjacent lung bases. Continue scheduled nebs tid plus nebs prn q4h, since these help her, she rep orted. Added perforomist and budesonide / (3) Perforated abdominal viscus Impression: Present on admission and was getting worse. Repeat CT on August 09 showed worsening pneumoperitoneum and ascites. Bandemia was getting worse on her white cell count. An attempt was made to transfer her to a higher level of care and could not be done in a timely fashion. So she underwent an exploratory laparotomy with sigmoid colectomy and and and colectomy and Funk's pouch that day. She had postoperative ileus. She was started on TPN. She has a wound VAC. Initial antibiotics were Zosyn and Flagyl. She was then changed to cefepime and Flagyl. Vancomycin is been the last Few days because of rising white cell count. General surgery feels she has an enterococcal infection. Since the addition of vancomycin her white cell count has been coming down. Started on a mechanical soft diet 08/19. She is slowly improving. 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 Medications were all still IV 08/20 so I changed metoprolol and opiates to po. She had the wound VAC replaced over the weekend of 08/17. This was done because it was not sealed correctly and there was leaking. It was replaced by the nurse practitioner who is working that day and is also the director of the wound care program at [facility]. The plan was to pull the wound VAC, close upper open wound with retention sutures 08/23 and continue with ostomy care. She did see ostomy nurse 08/21 and that note states she will be seen daily. Then a CT of the abdomen was done which showed fluid collection on August 21. Now the plan is to drain the fluid seen on CT today and delay the wound closure until next week. Continue to work on nutrition. (4) Status post colostomy, POD #13 Impression: She had a colectomy with diverting colostomy and Funk's pouch 08/09. She had a postoperative ileus. NPO status changed to po and was on TPN. Po food added 08/19. She is not eating well due to her fear of egg allergy. Nutrition services working with her to find ways to get her to eat and they are workiing on getting "packaged" food so that her food has not "touched" anything in the kitchen. She can't get lipids bc of this. I am suggesting ensure, etc. if possible.They are now trying pureed carrots and turkey. TPN was stopped ~08/19. We reduced the rate to 60 cc/hr and it lasted from 08/15 to 08/19. Continue iv antibx, pain meds prn, instruciton w ostomy nurse Follow BMP, Mg and PO4 daily (5) Hypokalemia Impression: Now that she is on Lasix, she needs intermittent replacement of K with iv riders, and it was in her TPN. We are Monitor BMP and Mg daily and need po replacement replace K again today. (6) Hyperglycemia Impression: This continues and is likely secondary to the dextrose in her TPN. We have adjusted the amount of dextrose and her blood glucose became in the acceptable range. Off TPN 08/20/21. Her A1c was within normal limits. 2/2 am hypoglycemia since NPO for CT and we are given OJ and feeding her. I did order D5 but she ended up not needing it. (7) Severe sepsis Impression: Resolved. This was secondary to perforated abdominal viscus. (8) Atrial fibrillation with RVR Impression: Resolved. She had a brief episode of Afib with RVR early on during this hospitalization but she has since been in a sinus rhythm. Her heart rates are stable. We are holding anticoagulation given the recent surgical intervention and the fact that her CHADS score is 0. Tele discontinued 08/20/21
[2021-08-22] MEDS ORDERED: lidocaine 1% 20 ML MDV ONE (10:45)
[2021-08-22] MEDS ORDERED: METOCLOPRAMIDE 10 MG/2 ML VIAL IVP PRN (11:35)
--- NOTE | 2021-08-22 15:09 | PROVIDER PROGRESS NOTE ---
Subjective - General Admit Date: 08/04/21 Procedure Date: 08/09/21 Post Op Days: 14 Procedure Performed: Laparotomy with Kenneth procedure - Review of Systems Wound/Incisions: positive: No drainage Drain Type: Mo Drain Output Description: Serous General: positive: Weakness HEENT: positive: No symptoms Pulmonary: negative: Shortness of breath Cardiovascular: positive: No symptoms Gastrointestinal: positive: Abdominal pain. negative: Nausea, Vomiting Genitourinary: positive: No symptoms Skin: positive: Other (Still frustrated about the swelling) All Other Systems: positive: Reviewed and negative - Other Other Information/Narrative: Continues to have difficulty eating . Doing better with physical therapy. Thinks the new meds may be helping her breathing some. Objective - Patient Data Vital Signs: Vital Signs x48h Temp Pulse Pulse Pulse Resp BP BP 08/22/21 13:17 37.5 C 110 H 17 120/64 08/22/21 11:55 82.3 C H 111 H 19 116/64 08/22/21 11:45 38.2 C H 109 H 19 117/64 08/22/21 11:38 38.2 C H 109 H 17 116/65 08/22/21 11:23 109 H 109/63 08/22/21 07:26 36.7 C 100 16 BP Pulse Ox 08/22/21 13:17 08/22/21 11:55 08/22/21 11:45 08/22/21 11:38 08/22/21 11:23 91 L 08/22/21 07:26 101/56 L 92 Weight: Weight 08/20/21 08/21/21 08/22/21 23:59 23:59 23:59 Weight (kg) 94 kg 98 kg 95 kg Intake & Output: Intake and Output Totals x24h 08/20/21 08/21/21 08/22/21 23:59 23:59 23:59 Intake Total 3507 2357 1008 Output Total 2001 150 1460 Balance 1505 9223 -672 - Lab Results Lab Results: 08/23/21 07:38 08/23/21 07:38 Other Lab Results: Lab Results x24hrs 08/22/21 08/22/21 08/22/21 Range/Units 13:14 09:25 07:14 WBC (4.8-10.8) x10^3/uL RBC (4.20-5.40) 10^6/uL Hgb (12.0-16.0) g/dL Hct (37.0-47.0) % MCV (81.0-99.0) fL MCH (27.0-31.0) pg MCHC (32.0-36.0) g/dL RDW (12.0-15.0) % Plt Count (130-450) 10^3/uL MPV (7.9-10.8) fL Neut # (Auto) (1.5-6.6) 10^3/uL Lymph # (Auto) (1.5-3.5) 10^3/uL Parker # (Auto) (0.0-1.0) 10^3/uL Eos # (Auto) (0.0-0.7) 10^3/uL Baso # (Auto) (0.0-0.1) 10^3/uL Absolute Nucleated RBC x10^3/uL Nucleated RBC % /100WBC PT (9.9-12.6) secs INR (0.8-1.2) Sodium (135-145) mmol/L Potassium (3.5-5.0) mmol/L Chloride (101-111) mmol/L Carbon Dioxide (21-32) mmol/L Anion Gap (6-13) BUN (6-20) mg/dL Creatinine (0.4-1.0) mg/dL Estimated GFR (MDRD) (>89) Glucose (70-100) mg/dL POC Whole Bld Glucose 73 (70 - 100) mg/dL Calcium (8.5-10.3) mg/dL Last Dose Date 08/22/21 Last Dose Time 0425 Vancomycin Trough 29.0 H* (10.0-20.0) ug/mL Blood Type O POSITIVE Blood Type Recheck 08/22/21 08/22/21 08/22/21 Range/Units 05:21 05:21 05:21 WBC (4.8-10.8) x10^3/uL RBC (4.20-5.40) 10^6/uL Hgb (12.0-16.0) g/dL Hct (37.0-47.0) % MCV (81.0-99.0) fL MCH (27.0-31.0) pg MCHC (32.0-36.0) g/dL RDW (12.0-15.0) % Plt Count (130-450) 10^3/uL MPV (7.9-10.8) fL Neut # (Auto) (1.5-6.6) 10^3/uL Lymph # (Auto) (1.5-3.5) 10^3/uL Parker # (Auto) (0.0-1.0) 10^3/uL Eos # (Auto) (0.0-0.7) 10^3/uL Baso # (Auto) (0.0-0.1) 10^3/uL Absolute Nucleated RBC x10^3/uL Nucleated RBC % /100WBC PT 28.7 H (9.9-12.6) secs INR 2.6 H (0.8-1.2) Sodium 133 L (135-145) mmol/L Potassium 3.2 L (3.5-5.0) mmol/L Chloride 95 L (101-111) mmol/L Carbon Dioxide 29 (21-32) mmol/L Anion Gap 9.0 (6-13) BUN 14 (6-20) mg/dL Creatinine 0.5 (0.4-1.0) mg/dL Estimated GFR (MDRD) 123 (>89) Glucose 72 (70-100) mg/dL POC Whole Bld Glucose (70 - 100) mg/dL Calcium 7.8 L (8.5-10.3) mg/dL Last Dose Date Last Dose Time Vancomycin Trough (10.0-20.0) ug/mL Blood Type Blood Type Recheck O POSITIVE 08/22/21 08/21/21 08/21/21 Range/Units 05:21 21:19 16:34 WBC 15.7 H (4.8-10.8) x10^3/uL RBC 2.89 L (4.20-5.40) 10^6/uL Hgb 8.6 L (12.0-16.0) g/dL Hct 26.9 L (37.0-47.0) % MCV 93.1 (81.0-99.0) fL MCH 29.8 (27.0-31.0) pg MCHC 32.0 (32.0-36.0) g/dL RDW 13.7 (12.0-15.0) % Plt Count 532 H (130-450) 10^3/uL MPV 8.6 (7.9-10.8) fL Neut # (Auto) 13.8 H (1.5-6.6) 10^3/uL Lymph # (Auto) 0.8 L (1.5-3.5) 10^3/uL Parker # (Auto) 0.7 (0.0-1.0) 10^3/uL Eos # (Auto) 0.2 (0.0-0.7) 10^3/uL Baso # (Auto) 0.1 (0.0-0.1) 10^3/uL Absolute Nucleated RBC 0.00 x10^3/uL Nucleated RBC % 0.0 /100WBC PT (9.9-12.6) secs INR (0.8-1.2) Sodium (135-145) mmol/L Potassium (3.5-5.0) mmol/L Chloride (101-111) mmol/L Carbon Dioxide (21-32) mmol/L Anion Gap (6-13) BUN (6-20) mg/dL Creatinine (0.4-1.0) mg/dL Estimated GFR (MDRD) (>89) Glucose (70-100) mg/dL POC Whole Bld Glucose 82 71 (70 - 100) mg/dL Calcium (8.5-10.3) mg/dL Last Dose Date Last Dose Time Vancomycin Trough (10.0-20.0) ug/mL Blood Type Blood Type Recheck - Current Medications Current Medications: Current Medications Generic Name Dose Route Start Last Admin Trade Name Freq PRN Reason Stop Dose Admin Acetaminophen 650 mg 08/04/21 14:01 08/22/21 11:59 Acetaminophen 325 Mg Tablet PO 650 mg Q4HR PRN Administration PAIN Albuterol 2.5 mg 08/04/21 17:26 08/21/21 15:15 Albuterol Neb 2.5 Mg/3 Ml INH 2.5 mg RTQ4H PRN Administration Wheezing Albuterol 2.5 mg 08/15/21 22:00 08/22/21 06:07 Albuterol Neb 2.5 Mg/3 Ml INH 2.5 mg TID [facility] Administration Budesonide 0.5 mg 08/21/21 19:00 08/22/21 06:07 Budesonide 0.5 Mg/2 Ml Neb INH 0.5 mg RTBID [facility] Administration Formoterol Fumarate 20 mcg 08/21/21 19:00 08/22/21 06:07 Formoterol Fumarate Neb 20 Mcg/2 Ml INH 20 mcg RTBID [facility] Administration Furosemide 40 mg 08/19/21 14:00 08/22/21 13:18 Furosemide 40 Mg/4 Ml Vial IVP 40 mg 0600,1200,1800 [facility] Administration Cefepime HCl 2 gm/ Sodium 100 mls @ 200 mls/hr 08/07/21 09:00 08/22/21 09:00 Chloride IV Infused BID [facility] Infusion Metronidazole 500 mg in 100 mls @ 100 mls/hr 08/07/21 15:00 08/22/21 10:45 Flagyl 500 Mg/100 Ml IV Infused Q8H [facility] Infusion Metoprolol Tartrate 25 mg 08/20/21 21:00 08/22/21 08:17 Metoprolol Tartrate 25 Mg Tablet PO Not Given BID IN[facility] Oxycodone HCl 5 mg 08/19/21 11:04 08/22/21 08:16 Oxycodone 5 Mg Tablet PO 5 mg Q4HR PRN Administration PAIN Pantoprazole Sodium 40 mg 08/05/21 07:00 08/22/21 05:36 Pantoprazole 40 Mg Tablet PO 40 mg QDAC [facility] Administration Polyethylene Glycol 17 gm 08/16/21 21:00 08/22/21 08:16 Polyethylene Glycol 3350 17 Gm Packet PO Not Given BID IN[facility] Potassium Chloride 40 meq 08/21/21 11:00 08/22/21 08:16 Potassium Chloride 20 Meq Tablet PO 08/22/21 21:01 40 meq BID IN[facility] Administration Sodium Chloride 10 ml 08/04/21 17:00 08/22/21 08:16 Sodium Chloride Flush 0.9% 10 Ml Syringe IVP 10 ml 0100,0900,1700 INGA Administration Sodium Chloride 10 ml 08/04/21 14:01 08/22/21 13:18 Sodium Chloride Flush 0.9% 10 Ml Syringe IVP 10 ml PRN PRN Administration NEEDED PER PROVIDER ORDERS - Physical Exam General Appearance: positive: No acute distress, Alert Eyes Bilateral: positive: Normal inspection Respiratory: positive: No respiratory distress, Breath sounds nml Cardiovascular: positive: Regular rate & rhythm Abdomen: positive: No distention, Tenderness. negative: Guarding, Rebound Skin: positive: Pallor Neurologic/Psychiatric: positive: Oriented x3 Impression/Plan - Problem List Problem List: 1. No luck with drainage today due to elevated INR - most likely the result of malnutrition. Will try again next week 2. Continue to encourage po intake 3. Will need drainage and wound closure prior to discharge.
--- NOTE | 2021-08-22 15:32 | PHARMACY PROGRESS NOTE ---
- Therapy Status Vancomycin regimen day #: 6 (First dose 08/17 @0000) Therapy status: Trough supratherapeutic Basis for treatment: Empirical Treatment indication: Elevated White Count, Wound, Perforated Viscus, s/p Sepsis Trough goal: 10-15 Concurrent antibiotics: Cefepime, Flagyl - DONNIE Risk Risk level for Acute Kidney Injury: High Acute Kidney Injury risk factors: Duration >7 days, Sepsis - Monitoring and Recommendation Clinical response to treatment: I&O Previous 24 hours 08/20/21 08/21/21 08/22/21 23:59 23:59 23:59 Intake Total 3507 2357 1008 Output Total 2001 150 1460 Balance 1505 2207 -452 Lab Results 08/22/21 08/21/21 08/20/21 05:21 06:48 05:55 BUN 14 16 16 Creatinine 0.5 0.4 0.5 Estimated GFR (MDRD) 123 159 123 08/19/21 08/18/21 08/17/21 05:25 06:35 10:53 BUN 16 16 16 Creatinine 0.5 0.4 0.4 Estimated GFR (MDRD) 123 159 159 08/16/21 08/15/21 08/14/21 06:20 05:15 06:00 BUN 16 16 15 Creatinine 0.4 0.4 0.6 Estimated GFR (MDRD) 159 159 100 08/13/21 08/12/21 08/11/21 06:00 08:00 07:36 BUN 18 22 H 25 H Creatinine 0.5 0.6 0.6 Estimated GFR (MDRD) 123 100 100 08/11/21 08/10/21 08/09/21 06:50 06:25 08:00 BUN 8 24 H 18 Creatinine 0.4 0.8 0.7 Estimated GFR (MDRD) 159 72 L 83 L 08/08/21 08/08/21 08/07/21 14:59 05:01 05:08 BUN 21 H 22 H 23 H Creatinine 0.7 0.6 0.6 Estimated GFR (MDRD) 83 L 100 100 08/06/21 08/05/21 08/05/21 04:50 18:21 04:35 BUN 31 H 31 H 21 H Creatinine 1.0 1.5 H 1.1 H Estimated GFR (MDRD) 55 L 35 L 50 L 08/04/21 11:10 BUN 11 Creatinine 0.7 Estimated GFR (MDRD) 83 L Vancomycin Monitoring 08/22/21 08/19/21 08/16/21 13:14 11:00 10:15 Vancomycin Trough 29.0 H* 21.3 H 11.6 08/09/21 09:10 Vancomycin Trough 15.4 Cultures 08/09/21 18:24 Peritoneal Fluid Anaerobic Culture - Final 08/09/21 18:24 Peritoneal Fluid Body Fluid Culture - Final Escherichia Coli 08/05/21 21:40 Blood Blood Culture - Final NO GROWTH AFTER 5 DAYS 08/05/21 20:50 Blood Blood Culture - Final NO GROWTH AFTER 5 DAYS Monitoring plan: Daily serum creatinine, Draw trough early Next trough due (date/time): 08/26/21 @0730 Pharmacy recommendation: Hold dose (Given no growth, WBC coming down, and VTr trending up despite dose decrease, pt fluid overloaded, gained over 20kg since admission. Hold Vanco 1.5G. Redraw level at 0700 08/23/21 and restart if appropriate.)
[2021-08-22] MEDS ORDERED: PHYTONADIONE 10 MG/ML AMP PO ONE (19:10)
[2021-08-22] MEDS ORDERED: CHERRY SYRUP 10 ML UDC PO ONE (19:10)
[2021-08-23] MEDS: metroNIDAZOLE 500 MG/100 ML 500 MG/100 ML BAG IV SCH ×3 (01:03→16:44)
[2021-08-23] MEDS: SODIUM CHLORIDE FLUSH 0.9% 10 ML SYRINGE IVP SCH ×3 (01:05→16:49)
[2021-08-23] MEDS: ACETAMINOPHEN 325 MG TABLET PO PRN ×4 (01:39→21:01)
[2021-08-23] MEDS: oxyCODONE 5 MG TABLET PO PRN ×4 (03:50→19:36)
[2021-08-23] MEDS: PANTOPRAZOLE 40 MG TABLET PO SCH (06:33)
[2021-08-23] MEDS: FUROSEMIDE 40 MG/4 ML VIAL IVP SCH ×3 (06:33→18:13)
[2021-08-23] MEDS: SODIUM CHLORIDE FLUSH 0.9% 10 ML SYRINGE IVP PRN ×3 (06:33→21:06)
[2021-08-23 07:44] LABS: BASOPHILS # (AUTO) 0.1 10^3/uL (0.0-0.1); BASOPHILS % (AUTO) 0.4 %; EOSINOPHILS # (AUTO) 0.2 10^3/uL (0.0-0.7); EOSINOPHILS % (AUTO) 1.2 %; HCT - HEMATOCRIT 30.2 % (37.0-47.0); HGB - HEMOGLOBIN 9.7 g/dL (12.0-16.0); LYMPHOCYTES % (AUTO) 6.7 %; MEAN CORPUSCULAR HEMOGLOBIN 29.7 pg (27.0-31.0); MEAN CORPUSCULAR HGB CONC 32.1 g/dL (32.0-36.0); MEAN CORPUSCULAR VOLUME 92.4 fL (81.0-99.0); MEAN PLATELET VOLUME 8.2 fL (7.9-10.8); MONOCYTES # (AUTO) 0.7 10^3/uL (0.0-1.0); MONOCYTES % (AUTO) 4.2 %; NEUTROPHILS # (AUTO) 13.3 10^3/uL (1.5-6.6); NEUTROPHILS % (AUTO) 86.3 %; PLT - PLATELET COUNT 539 10^3/uL (130-450); RED BLOOD COUNT 3.27 10^6/uL (4.20-5.40); RED CELL DISTRIBUTION WIDTH 13.8 % (12.0-15.0); WHITE BLOOD COUNT 15.4 x10^3/uL (4.8-10.8)
[2021-08-23] MEDS: FORMOTEROL FUMARATE NEB 20 MCG/2 ML INH SCH ×4 (07:45→08:31)
--- NOTE | 2021-08-23 07:47 | PROVIDER PROGRESS NOTE ---
Subjective - Prog Note Date Prog Note Date: 08/23/21 Prog Note Time: 07:37 - Subjective Pt reports feeling: No change Subjective: she is up in chair and feels like fluid is def coming off of her body. Arms, face, chest are getting randall definition again. legs still w edema. Trying to eat more. Wants to go to SNF for rehab and after that home with daughters to care for her. Current Medications - Current Medications Current Medications: Active Medications Acetaminophen (Acetaminophen 325 Mg Tablet) 650 mg PO Q4HR PRN PRN Reason: PAIN Last Admin: 08/23/21 01:39 Dose: 650 mg Albuterol (Albuterol Neb 2.5 Mg/3 Ml) 2.5 mg INH RTQ4H PRN PRN Reason: Wheezing Last Admin: 08/21/21 15:15 Dose: 2.5 mg Albuterol (Albuterol Neb 2.5 Mg/3 Ml) 2.5 mg INH TID INGA Last Admin: 08/22/21 18:38 Dose: 2.5 mg Budesonide (Budesonide 0.5 Mg/2 Ml Neb) 0.5 mg INH RTBID INGA Last Admin: 08/22/21 18:38 Dose: 0.5 mg Formoterol Fumarate (Formoterol Fumarate Neb 20 Mcg/2 Ml) 20 mcg INH RTBID INGA Last Admin: 08/22/21 18:38 Dose: 20 mcg Furosemide (Furosemide 40 Mg/4 Ml Vial) 40 mg IVP 0600,1200,1800 [facility] Last Admin: 08/23/21 06:33 Dose: 40 mg Cefepime HCl 2 gm/ Sodium (Chloride) 100 mls @ 200 mls/hr IV BID [facility] Last Infusion: 08/22/21 21:13 Dose: Infused Metronidazole (Flagyl 500 Mg/100 Ml) 500 mg in 100 mls @ 100 mls/hr IV Q8H [facility] Last Infusion: 08/23/21 02:15 Dose: Infused Potassium Chloride (Potassium Chloride) 10 meq in 100 mls @ 100 mls/hr IV Q1H [facility] Stop: 08/23/21 11:59 Potassium Chloride/Dextrose/Sod Cl (D5ns W/20 Meq Kcl) 1,000 mls @ 83.333 mls/hr IV .Q12H [facility] Metoclopramide HCl (Metoclopramide 10 Mg/2 Ml Vial) 5 mg IVP Q6HR PRN PRN Reason: Nausea / Vomiting Last Admin: 08/22/21 17:26 Dose: 5 mg Metoprolol Tartrate (Metoprolol Tartrate 25 Mg Tablet) 25 mg PO BID [facility] Last Admin: 08/22/21 20:45 Dose: 25 mg Mineral Oil (Min Oil/Dimethicon/Coconut Oil 92 Gm Tube) 1 applic TOP PRN PRN PRN Reason: Skin Care Oxycodone HCl (Oxycodone 5 Mg Tablet) 5 mg PO Q4HR PRN PRN Reason: PAIN Last Admin: 08/23/21 03:50 Dose: 5 mg Pantoprazole Sodium (Pantoprazole 40 Mg Tablet) 40 mg PO QDAC [facility] Last Admin: 08/23/21 06:33 Dose: 40 mg Polyethylene Glycol (Polyethylene Glycol 3350 17 Gm Packet) 17 gm PO BID [facility] Last Admin: 08/22/21 20:45 Dose: 17 gm Sodium Chloride (Sodium Chloride Flush 0.9% 10 Ml Syringe) 10 ml IVP 0100,0900,1700 [facility] Last Admin: 08/23/21 01:05 Dose: 10 ml Sodium Chloride (Sodium Chloride Flush 0.9% 10 Ml Syringe) 10 ml IVP PRN PRN PRN Reason: NEEDED PER PROVIDER ORDERS Last Admin: 08/23/21 06:33 Dose: 10 ml Albuterol Sulf [Ventolin Hfa Inhaler] 2 puffs INH Q4H PRN 06/12/16 Aspirin 81 mg PO DAILY 06/12/16 lisinopriL [Lisinopril] 20 mg PO DAILY 06/12/16 polyethylene glycoL 3350 [Miralax] 17 gm PO DAILY 08/04/21 Objective - Vital Signs/Intake & Output Reviewed Vital Signs: Yes Vital Signs: Vital Signs x48h Temp Pulse Resp BP Pulse Ox 08/22/21 23:42 36.6 C 102 H 17 124/74 94 Intake & Output: Intake & Output 08/20/21 08/21/21 08/22/21 08/23/21 23:59 23:59 23:59 23:59 Intake Total 3507 2357 1458 300 Output Total 2001 150 1870 Balance 1505 2207 -412 300 - Objective General Appearance: positive: No acute distress, Alert, Other (fatigued appearing, pale, anxious obese female but her face and upper arms/chest def show less edema.) Eyes Bilateral: positive: PERRL, EOMI ENT: positive: Pharynx nml, No signs of dehydration Neck: positive: No JVD. negative: Stiff neck Respiratory: positive: No respiratory distress, Other (she does get RR go up with anxious feeling but no use of accessory muscles and no wheezing. no sounds at lung bases posteriorly). negative: Wheezes, Rales, Rhonchi Cardiovascular: positive: Regular rate & rhythm. negative: Gallop/S4, Friction rub Abdomen: positive: Nml bowel sounds, No distention, Other (wound is close and covered by wound vac. no surrounding redness, heat, drainage or induration. ostomy pink.) Skin: positive: Warm, Dry, Pallor Extremities: positive: Full ROM, Pedal edema Neurologic/Psychiatric: positive: Oriented x3, CN's nml (2-12), Motor nml (but has generalzed moderate weakness) - Lab Results Fish Bones: 08/23/21 07:38 08/23/21 07:38 Other Labs: Lab Results x24hrs 08/22/21 08/22/21 08/22/21 Range/Units 13:14 09:25 05:21 Last Dose Date 08/22/21 Last Dose Time 0425 Vancomycin Trough 29.0 H* (10.0-20.0) ug/mL Blood Type O POSITIVE Blood Type Recheck O POSITIVE ABX Reporting Has patient been on IV antibiotics over the past 48 hours?: Yes Sepsis Event Note (H) - Evaluation Current Stage of Sepsis: Resolved Possible source of Sepsis: positive: GI tract/intra-abdominal - Sepsis Criteria Sepsis Criteria: Recorded Heart Rate greater than 90 bpm, WBC count greater than 10% bands, WBC count greater than 12,000 or less than 4000, Metabolic: lactate > 2 mmol/L Assessment/Plan - Problem List (1) Anasarca Impression: She has severe ongoing anasarca which is secondary to all the IV fluids she receives; what she needed for severe sepsis, now her tpn, all her K riders, and iv antibx, needed because she was not taking po and septic. Her Echocardiogram showed no evidence of heart failure and leg duplex doppler was negative for DVT. She is 42,705 L pos since admission. She was finally with negative I/O yesterday at a small <500 but at least negative. Weight was 74 kg on admission and she is 95 kg today. Currently on Lasix t.i.d . RN that took care of her 08/17 noted that her exam is much better 08/20 with mobilization being somewhat successful. Low oncotic pressure with poor nutrition as well. TPN was reduced bc of the anasarca and stopped once she started eating. Today I am seeing a change from when I first saw her 08/20. Edema of upper body def improving. Legs still large. Continue to follow daily weight and I's and O's, and daily BMP & Mg. Current treatment seems to be working by exam but not by I/O. CT with contrast done 08/21 and labs do not show ATN with lasix and contrast (2) Wheezing with h/o asthma Impression: No wheezing on exam since I have been on service 08/20. We cannot order elevate legs above head for draining her anasarca, because she is already SOB, and occas ional wheezing. She has a Hx of Albuterol use priorto admission. She likes the morphine for the feeling of sob/orthopnea and repetitively asks for it even though I have explained we are trying to diminish use of opioids in a post op patient whose cause of bowel rupture was stercoral perforation. Chest x-ray 08/19 has a stable right internal jugular catheter. Stable small left and trace right pleural effusion with atelectasis or consolidation of the adjacent lung bases. Continue scheduled nebs tid plus nebs prn q4h, since these help her, she reported. Added perforomist and budesonide 08/21 For the most part I think her sob is due to fluid overload. Once she mobilizes more and more fluid she should do better. (3) Perforated abdominal viscus Impression: Present on admission and did not improve w abx and expectant management. Repeat CT on August 09 showed worsening pneumoperitoneum and ascites. Bandemia was getting worse on her white cell count. An attempt was made to transfer her to a higher level of care and could not be done in a timely fashion due to lack of beds on the [facility]. So she underwent an exploratory laparotomy with sigmoid colectomy and and and colectomy and Funk's pouch that day. She had postoperative ileus. She was started on TPN. She has a wound VAC. Initial antibiotics were Zosyn and Flagyl. She was then changed to cefepime and Flagyl. Vancomycin had been added because of rising white cell count. General surgery feels she has an enterococcal infection. Since the addition of vancomycin her white cell count has been coming down. Started on a mechanical soft diet 08/19. She is slowly improving. 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 Medications were all still IV 08/20 so I changed metoprolol and opiates to po. She had the wound VAC replaced over the weekend of 08/17. This was done because it was not sealed correctly and there was leaking. It was replaced by the nurse practitioner who is working that day and is also the director of the wound care program at [facility]. The plan was to pull the wound VAC, close upper open wound with retention renteria tures 08/23 and continue with ostomy care. She did see ostomy nurse 08/21 and that note states she will be seen daily. Then a CT of the abdomen was done which showed fluid collection on August 21. The second plan was to drain the fluid seen on CT 08/23 and delay the wound closure until next week. INR was >2 and she was given FFP but Radiology felt that even with the FFP, he wasn't going to drain her, so it was cancelled. I dont' know if surgery will be rescheduling the drainage. (4) Status post colostomy, POD #14 Impression: She had a colectomy with diverting colostomy and Funk's pouch 08/09. She had a postoperative ileus. NPO status and was on TPN. Po food added 08/19. She is not eating well due to her fear of egg allergy. Nutrition services working with her to find ways to get her to eat and they are workiing on getting "packaged" food so that her food has not "touched" anything in the kitchen. She can't get lipids bc of this. I am suggesting ensure, etc. if possible. She liked the pureed carrots and turkey. TPN was stopped ~08/19. We reduced the rate to 60 cc/hr and it lasted from 08/15 to 08/19. Continue iv antibx, pain meds prn, instruciton w ostomy nurse Today she promises to try and do the changes herself and let the RN supervise so she can get more comfortable and not just watch. Follow BMP, Mg and PO4 daily (5) Hypokalemia Impression: Now that she is on Lasix, she needs intermittent replacement of K with iv riders, and it was in her TPN. We are Monitor BMP and Mg daily and need po replacement replace K again today. (6) Hyperglycemia Impression: This continues and is likely secondary to the dextrose in her TPN. We have adjusted the amount of dextrose and her blood glucose became in the acceptable range. Off TPN 08/20/21. Her A1c was within normal limits. 2 am hypoglycemia since NPO for CT and we are given OJ and feeding her. I did order D5 but she ended up not needing it. Selected Entries 08/21/21 08/21/21 08/21/21 08:00 11:40 12:06 Result (mg/dL) 78 66 67 08/21/21 08/21/21 08/21/21 14:59 17:00 17:34 Result (mg/dL) 105 71 71 08/21/21 08/21/21 08/22/21 21:00 21:33 07:19 Result (mg/dL) 82 82 73 08/22/21 07:25 Result (mg/dL) 73 she continues to be hypoglycemic after TPN stopped. Na and K need supplementation. I will add D5 with 20 meq K but will watch fluid intake in face of our goal to help her anasarca (7) Severe sepsis Impression: Resolved. This was secondary to perforated abdominal viscus. (8) Atrial fibrillation with RVR Impression: Resolved. She had a brief episode of Afib with RVR early on during this hospitalization but she has since been in a sinus rhythm. Her heart rates are stable. We are holding anticoagulation given the recent surgical intervention and the fact that her CHADS score is 0. Tele discontinued 08/20/21
[2021-08-23 07:49] LABS: PT - PROTHROMBIN TIME 22.6 secs (9.9-12.6)
[2021-08-23 07:53] LABS: CALCIUM 8.6 mg/dL (8.5-10.3); CREATININE 0.7 mg/dL (0.4-1.0); POTASSIUM 3.1 mmol/L (3.5-5.0)
[2021-08-23] MEDS: D5NS W/20 MEQ KCL 1,000 ML IV SCH ×2 (08:12→22:41)
[2021-08-23] MEDS: POTASSIUM CHLOR 10 MEQ/100 ML 10 MEQ/100 ML BAG IV SCH ×4 (08:15→11:31)
[2021-08-23] MEDS: METOPROLOL TARTRATE 25 MG TABLET PO SCH ×2 (08:42→21:00)
[2021-08-23] MEDS: polyethylene glycoL 3350 17 GM PACKET PO SCH ×2 (08:43→21:02)
[2021-08-23] MEDS: CEFEPIME 2 GM in SODIUM CHLORIDE 0.9% MINIBAG 100 ML IV SCH ×2 (08:44→21:02)
[2021-08-23] MEDS: ALBUTEROL NEB 2.5 MG/3 ML INH SCH ×4 (08:45→17:51)
[2021-08-23] MEDS: BUDESONIDE 0.5 MG/2 ML NEB INH SCH ×2 (09:27→17:51)
[2021-08-23] MEDS: VANCOMYCIN INJ 1 GM, VANCOMYCIN INJ 500 MG in SODIUM CHLORIDE 0.9% 500 ML IV SCH ×2 (11:11→22:42)
--- NOTE | 2021-08-23 16:32 | PHARMACY PROGRESS NOTE ---
- Therapy Status Vancomycin regimen day #: 7 Therapy status: Trough supratherapeutic Basis for treatment: Empirical Treatment indication: Perforated Viscus, S/P Sepsis, Open Wound, MD would like 10 days of abx therapy w/o change Trough goal: 10-15 - DONNIE Risk Risk level for Acute Kidney Injury: Moderate Acute Kidney Injury risk factors: Duration >7 days, Sepsis - Monitoring and Recommendation Clinical response to treatment: I&O Previous 24 hours 08/21/21 08/22/21 08/23/21 23:59 23:59 23:59 Intake Total 2357 1458 1637.500 Output Total 150 1870 675 Balance 2207 -412 962.500 Lab Results 08/23/21 08/22/21 08/21/21 07:38 05:21 06:48 BUN 13 14 16 Creatinine 0.7 0.5 0.4 Estimated GFR (MDRD) 83 L 123 159 08/20/21 08/19/21 08/18/21 05:55 05:25 06:35 BUN 16 16 16 Creatinine 0.5 0.5 0.4 Estimated GFR (MDRD) 123 123 159 08/17/21 08/16/21 08/15/21 10:53 06:20 05:15 BUN 16 16 16 Creatinine 0.4 0.4 0.4 Estimated GFR (MDRD) 159 159 159 08/14/21 08/13/21 08/12/21 06:00 06:00 08:00 BUN 15 18 22 H Creatinine 0.6 0.5 0.6 Estimated GFR (MDRD) 100 123 100 08/11/21 08/11/21 08/10/21 07:36 06:50 06:25 BUN 25 H 8 24 H Creatinine 0.6 0.4 0.8 Estimated GFR (MDRD) 100 159 72 L 08/09/21 08/08/21 08/08/21 08:00 14:59 05:01 BUN 18 21 H 22 H Creatinine 0.7 0.7 0.6 Estimated GFR (MDRD) 83 L 83 L 100 08/07/21 08/06/21 08/05/21 05:08 04:50 18:21 BUN 23 H 31 H 31 H Creatinine 0.6 1.0 1.5 H Estimated GFR (MDRD) 100 55 L 35 L 08/05/21 08/04/21 04:35 11:10 BUN 21 H 11 Creatinine 1.1 H 0.7 Estimated GFR (MDRD) 50 L 83 L Vancomycin Monitoring 08/23/21 08/22/21 08/19/21 09:22 13:14 11:00 Vancomycin Trough 29.0 H* 21.3 H Random Vancomycin 11.0 08/16/21 08/09/21 10:15 09:10 Vancomycin Trough 11.6 15.4 Random Vancomycin Cultures 08/09/21 18:24 Peritoneal Fluid Anaerobic Culture - Final 08/09/21 18:24 Peritoneal Fluid Body Fluid Culture - Final Escherichia Coli 08/05/21 21:40 Blood Blood Culture - Final NO GROWTH AFTER 5 DAYS 08/05/21 20:50 Blood Blood Culture - Final NO GROWTH AFTER 5 DAYS Monitoring plan: Daily serum creatinine, Draw trough early Next trough due prior to maintenance dose #: 4 (due 08/26 @1000) Pharmacy recommendation: Decrease dose (Vtr=29 despite dose decrease from 1.75GQ12 to 1.5GQ12. Vanco 1400 on 08/22 held. Given pt's gain of >20kg since admission, ordered another level for 0700 on 08/23 taking into account pharmacist availability for assessement. Drawn @9AM on 08/23=11. Restarted Vanc 1.5G Q24H. Vtr for 08/26 in case con't abx)
--- NOTE | 2021-08-23 19:57 | PROVIDER PROGRESS NOTE ---
Subjective - General Admit Date: 08/04/21 Procedure Date: 08/09/21 Post Op Days: 14 Procedure Performed: Laparotomy with Kenenth procedure - Review of Systems Wound/Incisions: positive: No drainage Drain Type: Mo Drain Output Description: Serous General: positive: Weakness HEENT: positive: No symptoms Pulmonary: negative: Shortness of breath Cardiovascular: positive: No symptoms Gastrointestinal: positive: Abdominal pain. negative: Nausea, Vomiting Genitourinary: positive: No symptoms Skin: positive: Other (Still frustrated about the swelling) All Other Systems: positive: Reviewed and negative - Other Other Information/Narrative: Feeling a little better today. Reports she ate Pala and potatoes for supper and is beginning to have a stronger appetite. Pain is well controlled and she reports she was able to walk down the sr with minimal assistance. Wound center nurse changed the vac today. Objective - Patient Data Reviewed Vital Signs: Yes Vital Signs: Vital Signs x48h Temp Pulse Pulse Resp BP Pulse Ox 08/23/21 17:54 109 H 23 08/23/21 16:00 37.4 C 105 H 20 101/60 93 08/23/21 13:36 93 21 Weight: Weight 08/21/21 08/22/21 08/23/21 23:59 23:59 23:59 Weight (kg) 98 kg 95 kg Intake & Output: Intake and Output Totals x24h 08/21/21 08/22/21 08/23/21 23:59 23:59 23:59 Intake Total 2357 1458 1737.500 Output Total 150 1870 975 Balance 2207 -412 762.500 - Lab Results Lab Results: 08/23/21 07:38 08/23/21 07:38 Other Lab Results: Lab Results x24hrs 08/23/21 08/23/21 08/23/21 Range/Units 09:22 07:38 07:38 WBC (4.8-10.8) x10^3/uL RBC (4.20-5.40) 10^6/uL Hgb (12.0-16.0) g/dL Hct (37.0-47.0) % MCV (81.0-99.0) fL MCH (27.0-31.0) pg MCHC (32.0-36.0) g/dL RDW (12.0-15.0) % Plt Count (130-450) 10^3/uL MPV (7.9-10.8) fL Neut # (Auto) (1.5-6.6) 10^3/uL Lymph # (Auto) (1.5-3.5) 10^3/uL [place] # (Auto) (0.0-1.0) 10^3/uL Eos # (Auto) (0.0-0.7) 10^3/uL Baso # (Auto) (0.0-0.1) 10^3/uL Absolute Nucleated RBC x10^3/uL Nucleated RBC % /100WBC PT 22.6 H (9.9-12.6) secs INR 2.0 H (0.8-1.2) Sodium 139 (135-145) mmol/L Potassium 3.1 L (3.5-5.0) mmol/L Chloride 97 L (101-111) mmol/L Carbon Dioxide 29 (21-32) mmol/L Anion Gap 13.0 (6-13) BUN 13 (6-20) mg/dL Creatinine 0.7 (0.4-1.0) mg/dL Estimated GFR (MDRD) 83 L (>89) Glucose 79 (70-100) mg/dL Calcium 8.6 (8.5-10.3) mg/dL Last Dose Date 08/22/21 Last Dose Time 0425 Random Vancomycin 11.0 ug/mL 08/23/21 Range/Units 07:38 WBC 15.4 H (4.8-10.8) x10^3/uL RBC 3.27 L (4.20-5.40) 10^6/uL Hgb 9.7 L (12.0-16.0) g/dL Hct 30.2 L (37.0-47.0) % MCV 92.4 (81.0-99.0) fL MCH 29.7 (27.0-31.0) pg MCHC 32.1 (32.0-36.0) g/dL RDW 13.8 (12.0-15.0) % Plt Count 539 H (130-450) 10^3/uL MPV 8.2 (7.9-10.8) fL Neut # (Auto) 13.3 H (1.5-6.6) 10^3/uL Lymph # (Auto) 1.0 L (1.5-3.5) 10^3/uL [place] # (Auto) 0.7 (0.0-1.0) 10^3/uL Eos # (Auto) 0.2 (0.0-0.7) 10^3/uL Baso # (Auto) 0.1 (0.0-0.1) 10^3/uL Absolute Nucleated RBC 0.00 x10^3/uL Nucleated RBC % 0.0 /100WBC PT (9.9-12.6) secs INR (0.8-1.2) Sodium (135-145) mmol/L Potassium (3.5-5.0) mmol/L Chloride (101-111) mmol/L Carbon Dioxide (21-32) mmol/L Anion Gap (6-13) BUN (6-20) mg/dL Creatinine (0.4-1.0) mg/dL Estimated GFR (MDRD) (>89) Glucose (70-100) mg/dL Calcium (8.5-10.3) mg/dL Last Dose Date Last Dose Time Random Vancomycin ug/mL - Current Medications Current Medications: Current Medications Generic Name Dose Route Start Last Admin Trade Name Freq PRN Reason Stop Dose Admin Acetaminophen 650 mg 08/04/21 14:01 08/23/21 16:44 Acetaminophen 325 Mg Tablet PO 650 mg Q4HR PRN Administration PAIN Albuterol 2.5 mg 08/04/21 17:26 08/21/21 15:15 Albuterol Neb 2.5 Mg/3 Ml INH 2.5 mg RTQ4H PRN Administration Wheezing Albuterol 2.5 mg 08/15/21 22:00 08/23/21 17:51 Albuterol Neb 2.5 Mg/3 Ml INH 2.5 mg TID INGA Administration Budesonide 0.5 mg 08/21/21 19:00 08/23/21 17:51 Budesonide 0.5 Mg/2 Ml Neb INH 0.5 mg RTBID INGA Administration Formoterol Fumarate 20 mcg 08/21/21 19:00 08/23/21 08:31 Formoterol Fumarate Neb 20 Mcg/2 Ml INH 20 mcg RTBID IN[facility] Administration Furosemide 40 mg 08/19/21 14:00 08/23/21 18:13 Furosemide 40 Mg/4 Ml Vial IVP 40 mg 0600,1200,1800 IN[facility] Administration Cefepime HCl 2 gm/ Sodium 100 mls @ 200 mls/hr 08/07/21 09:00 08/23/21 09:15 Chloride IV Infused BID [facility] Infusion Metronidazole 500 mg in 100 mls @ 100 mls/hr 08/07/21 15:00 08/23/21 18:13 Flagyl 500 Mg/100 Ml IV Infused Q8H [facility] Infusion Potassium Chloride/Dextrose/Sod Cl 1,000 mls @ 83.333 mls/hr 08/23/21 08:00 08/23/21 12:45 D5ns W/20 Meq Kcl IV 83.333 mls/hr .Q12H [facility] Infusion Vancomycin HCl 1 gm/ 500 mls @ 250 mls/hr 08/23/21 11:00 08/23/21 13:30 Vancomycin HCl 500 mg/ Sodium IV Infused Chloride Q12H [facility] Infusion Metoclopramide HCl 5 mg 08/22/21 11:35 08/22/21 17:26 Metoclopramide 10 Mg/2 Ml Vial IVP 5 mg Q6HR PRN Administration Nausea / Vomiting Metoprolol Tartrate 25 mg 08/20/21 21:00 08/23/21 08:42 Metoprolol Tartrate 25 Mg Tablet PO 25 mg BID [facility] Administration Oxycodone HCl 5 mg 08/19/21 11:04 08/23/21 19:36 Oxycodone 5 Mg Tablet PO 5 mg Q4HR PRN Administration PAIN Pantoprazole Sodium 40 mg 08/05/21 07:00 08/23/21 06:33 Pantoprazole 40 Mg Tablet PO 40 mg QDAC [facility] Administration Polyethylene Glycol 17 gm 08/16/21 21:00 08/23/21 08:43 Polyethylene Glycol 3350 17 Gm Packet PO 17 gm BID [facility] Administration Sodium Chloride 10 ml 08/04/21 17:00 08/23/21 16:49 Sodium Chloride Flush 0.9% 10 Ml Syringe IVP 10 ml 0100,0900,1700 [facility] Administration Sodium Chloride 10 ml 08/04/21 14:01 08/23/21 18:13 Sodium Chloride Flush 0.9% 10 Ml Syringe IVP 10 ml PRN PRN Administration NEEDED PER PROVIDER ORDERS - Physical Exam Wound/Incisions: positive: Dressing dry and intact General Appearance: positive: No acute distress Eyes Bilateral: positive: Normal inspection Respiratory: positive: No respiratory distress Cardiovascular: positive: Regular rate & rhythm Abdomen: positive: Nml bowel sounds, No distention Neurologic/Psychiatric: positive: Oriented x3 ABX Reporting Has patient been on IV antibiotics over the past 48 hours?: Yes Impression/Plan - Problem List Problem List: Perforated viscus secondary to extreme constipation 1. FEN- appetite is improving and she is taking more po. 2. Elevated INR likely related to malnutrition. Will plan to reverse and try for CT guided drainage again on Thursday or Thursday. This collection will need to be drained prior to discharge 3. WBCs decreasing - continue antibiotic. 4. Still planning close the wound prior to dishcarge. 5. Discharge planning - I have spoken with both of the patient's daughters at length. She would very much like to find a rehab facility near her daughters. She agrees now that she will require more care than either will be able to provide immediately after discharge.
[2021-08-24] MEDS: oxyCODONE 5 MG TABLET PO PRN ×4 (00:28→21:05)
[2021-08-24] MEDS: ALBUTEROL NEB 2.5 MG/3 ML INH PRN (00:37)
[2021-08-24] MEDS: FORMOTEROL FUMARATE NEB 20 MCG/2 ML INH SCH ×3 (00:38→20:37)
[2021-08-24] MEDS: SODIUM CHLORIDE FLUSH 0.9% 10 ML SYRINGE IVP SCH ×3 (00:53→16:10)
[2021-08-24] MEDS: metroNIDAZOLE 500 MG/100 ML 500 MG/100 ML BAG IV SCH ×3 (00:53→16:10)
[2021-08-24] MEDS: ACETAMINOPHEN 325 MG TABLET PO PRN ×3 (05:09→19:21)
[2021-08-24] MEDS: FUROSEMIDE 40 MG/4 ML VIAL IVP SCH ×3 (06:49→18:43)
[2021-08-24] MEDS: PANTOPRAZOLE 40 MG TABLET PO SCH (06:49)
[2021-08-24] MEDS: BUDESONIDE 0.5 MG/2 ML NEB INH SCH ×2 (07:28→20:37)
[2021-08-24] MEDS: CEFEPIME 2 GM in SODIUM CHLORIDE 0.9% MINIBAG 100 ML IV SCH ×2 (08:55→22:14)
[2021-08-24] MEDS: polyethylene glycoL 3350 17 GM PACKET PO SCH ×2 (09:04→22:15)
[2021-08-24] MEDS: METOPROLOL TARTRATE 25 MG TABLET PO SCH ×3 (09:04→22:14)
[2021-08-24] MEDS ORDERED: ALTEPLASE 2 MG VIAL IJ ONE ×2 (10:00→16:00)
[2021-08-24] MEDS ORDERED: WATER FOR INJECTION,STERILE 10 ML MC ONE (10:26)
--- NOTE | 2021-08-24 10:44 | PROVIDER PROGRESS NOTE ---
Subjective - General Admit Date: 08/04/21 Procedure Date: 08/09/21 Post Op Days: 15 Procedure Performed: Laparotomy with Kenneth procedure - Review of Systems Wound/Incisions: positive: No drainage Drain Type: Mo Drain Output Description: Serous General: positive: Weakness HEENT: positive: No symptoms Pulmonary: negative: Shortness of breath Cardiovascular: positive: No symptoms Gastrointestinal: positive: Abdominal pain. negative: Nausea, Vomiting Genitourinary: positive: No symptoms Skin: positive: Other (Still frustrated about the swelling) All Other Systems: positive: Reviewed and negative - Other Other Information/Narrative: Na is in really good spirits this morning. She reports she has been able to eat and that all the food "tastes so good". She has been working hard with PT and is making significant improvement. Only issue this AM is blood draws. The PICC line is not working for draws so she is getting lots of pokes. Objective - Patient Data Reviewed Vital Signs: Yes Vital Signs: Vital Signs x48h Pulse Pulse Resp BP BP Pulse Ox 08/24/21 09:05 103 H 19 100/58 L 97 08/24/21 09:04 100/58 L 08/24/21 08:00 84 18 Weight: Weight 08/22/21 08/23/21 08/24/21 23:59 23:59 23:59 Weight (kg) 95 kg Intake & Output: Intake and Output Totals x24h 08/22/21 08/23/21 08/24/21 23:59 23:59 23:59 Intake Total 1458 2905.274 1803.885 Output Total 1870 1575 365 Balance -412 6088.420 1674.885 - Lab Results Lab Results: 08/23/21 07:38 08/23/21 07:38 - Current Medications Current Medications: Current Medications Generic Name Dose Route Start Last Admin Trade Name Freq PRN Reason Stop Dose Admin Acetaminophen 650 mg 08/04/21 14:01 08/24/21 05:09 Acetaminophen 325 Mg Tablet PO 650 mg Q4HR PRN Administration PAIN Albuterol 2.5 mg 08/04/21 17:26 08/24/21 00:37 Albuterol Neb 2.5 Mg/3 Ml INH 2.5 mg RTQ4H PRN Administration Wheezing Albuterol 2.5 mg 08/15/21 22:00 08/23/21 17:51 Albuterol Neb 2.5 Mg/3 Ml INH 2.5 mg TID INGA Administration Budesonide 0.5 mg 08/21/21 19:00 08/24/21 07:28 Budesonide 0.5 Mg/2 Ml Neb INH 0.5 mg RTBID INGA Administration Formoterol Fumarate 20 mcg 08/21/21 19:00 08/24/21 07:28 Formoterol Fumarate Neb 20 Mcg/2 Ml INH 20 mcg RTBID INGA Administration Furosemide 40 mg 08/19/21 14:00 08/24/21 06:49 Furosemide 40 Mg/4 Ml Vial IVP 40 mg 0600,1200,1800 INGA Administration Cefepime HCl 2 gm/ Sodium 100 mls @ 200 mls/hr 08/07/21 09:00 08/24/21 09:33 Chloride IV Infused BID INGA Infusion Metronidazole 500 mg in 100 mls @ 100 mls/hr 08/07/21 15:00 08/24/21 10:12 Flagyl 500 Mg/100 Ml IV Infused Q8H [facility] Infusion Potassium Chloride/Dextrose/Sod Cl 1,000 mls @ 83.333 mls/hr 08/23/21 08:00 08/24/21 09:03 D5ns W/20 Meq Kcl IV 0 mls/hr .Q12H INGA Infusion Vancomycin HCl 1 gm/ 500 mls @ 250 mls/hr 08/23/21 11:00 08/24/21 00:54 Vancomycin HCl 500 mg/ Sodium IV Infused Chloride Q12H [facility] Infusion Metoclopramide HCl 5 mg 08/22/21 11:35 08/22/21 17:26 Metoclopramide 10 Mg/2 Ml Vial IVP 5 mg Q6HR PRN Administration Nausea / Vomiting Metoprolol Tartrate 25 mg 08/20/21 21:00 08/24/21 09:04 Metoprolol Tartrate 25 Mg Tablet PO Not Given BID INGA Oxycodone HCl 5 mg 08/19/21 11:04 08/24/21 08:54 Oxycodone 5 Mg Tablet PO 5 mg Q4HR PRN Administration PAIN Pantoprazole Sodium 40 mg 08/05/21 07:00 08/24/21 06:49 Pantoprazole 40 Mg Tablet PO 40 mg QDAC INGA Administration Polyethylene Glycol 17 gm 08/16/21 21:00 08/24/21 09:04 Polyethylene Glycol 3350 17 Gm Packet PO 17 gm BID INGA Administration Sodium Chloride 10 ml 08/04/21 17:00 08/24/21 09:04 Sodium Chloride Flush 0.9% 10 Ml Syringe IVP 10 ml 0100,0900,1700 INGA Administration Sodium Chloride 10 ml 08/04/21 14:01 08/23/21 21:06 Sodium Chloride Flush 0.9% 10 Ml Syringe IVP 10 ml PRN PRN Administration NEEDED PER PROVIDER ORDERS - Physical Exam Wound/Incisions: positive: Other (Wound images show granulation without purulence. Still a very large wound. Ostomy device is holding and ostomy is working) General Appearance: positive: No acute distress, Alert Eyes Bilateral: positive: Normal inspection, PERRL, EOMI ENT: positive: ENT inspection nml Neck: positive: Nml inspection Respiratory: positive: No respiratory distress Abdomen: positive: Nml bowel sounds, No distention. negative: Guarding, Rebound Skin: positive: Color nml Extremities: positive: Non-tender, Other (less edema each day) Neurologic/Psychiatric: positive: Oriented x3 ABX Reporting Has patient been on IV antibiotics over the past 48 hours?: Yes Impression/Plan - Problem List Problem List: 1. Tentatively plan for OR on Thursday to close the wound and remove existing drains 2. Will try for CT guided drainage for Thursday or Thursday 3. Appetite is increasing and she is clinically looking much better 4. Still planning for a stay at rehab but if she continues to make improvements, it may not be required
--- NOTE | 2021-08-24 11:29 | PROVIDER PROGRESS NOTE ---
Subjective - Prog Note Date Prog Note Date: 08/24/21 Prog Note Time: 11:14 - Subjective Subjective: Sitting up in a chair this morning and this afternoon. She prefers to stay sitting up in her chair. But she does not like to elevate her legs. Edema has significantly improved in the upper body, but still quite dense in her legs. She is tired. She tires easily with walking down the hallway. Nursing reports that her right IJ central line is getting clogged up. They can push but they cannot draw up blood. Current Medications - Current Medications Current Medications: Active Medications Acetaminophen (Acetaminophen 325 Mg Tablet) 650 mg PO Q4HR PRN PRN Reason: PAIN Last Admin: 08/24/21 11:15 Dose: 650 mg Albuterol (Albuterol Neb 2.5 Mg/3 Ml) 2.5 mg INH RTQ4H PRN PRN Reason: Wheezing Last Admin: 08/24/21 00:37 Dose: 2.5 mg Albuterol (Albuterol Neb 2.5 Mg/3 Ml) 2.5 mg INH TID INGA Last Admin: 08/24/21 13:33 Dose: 2.5 mg Budesonide (Budesonide 0.5 Mg/2 Ml Neb) 0.5 mg INH RTBID INGA Last Admin: 08/24/21 07:28 Dose: 0.5 mg Formoterol Fumarate (Formoterol Fumarate Neb 20 Mcg/2 Ml) 20 mcg INH RTBID INGA Last Admin: 08/24/21 07:28 Dose: 20 mcg Furosemide (Furosemide 40 Mg/4 Ml Vial) 40 mg IVP 0600,1200,1800 [facility] Last Admin: 08/24/21 12:53 Dose: 40 mg Cefepime HCl 2 gm/ Sodium (Chloride) 100 mls @ 200 mls/hr IV BID [facility] Last Infusion: 08/24/21 09:33 Dose: Infused Metronidazole (Flagyl 500 Mg/100 Ml) 500 mg in 100 mls @ 100 mls/hr IV Q8H [facility] Last Infusion: 08/24/21 10:12 Dose: Infused Potassium Chloride/Dextrose/Sod Cl (D5ns W/20 Meq Kcl) 1,000 mls @ 83.333 mls/hr IV .Q12H [facility] Last Infusion: 08/24/21 14:56 Dose: 83.33 mls/hr Vancomycin HCl 1 gm/Vancomycin HCl 500 mg/ Sodium Chloride 500 mls @ 250 mls/hr IV Q12H [facility] Last Infusion: 08/24/21 14:55 Dose: Infused Metoclopramide HCl (Metoclopramide 10 Mg/2 Ml Vial) 5 mg IVP Q6HR PRN PRN Reason: Nausea / Vomiting Last Admin: 08/22/21 17:26 Dose: 5 mg Metoprolol Tartrate (Metoprolol Tartrate 25 Mg Tablet) 25 mg PO BID [facility] Last Admin: 08/24/21 11:57 Dose: 25 mg Mineral Oil (Min Oil/Dimethicon/Coconut Oil 92 Gm Tube) 1 applic TOP PRN PRN PRN Reason: Skin Care Oxycodone HCl (Oxycodone 5 Mg Tablet) 5 mg PO Q4HR PRN PRN Reason: PAIN Last Admin: 08/24/21 08:54 Dose: 5 mg Pantoprazole Sodium (Pantoprazole 40 Mg Tablet) 40 mg PO QDAC [facility] Last Admin: 08/24/21 06:49 Dose: 40 mg Polyethylene Glycol (Polyethylene Glycol 3350 17 Gm Packet) 17 gm PO BID [facility] Last Admin: 08/24/21 09:04 Dose: 17 gm Sodium Chloride (Sodium Chloride Flush 0.9% 10 Ml Syringe) 10 ml IVP 0100,0900,1700 [facility] Last Admin: 08/24/21 09:04 Dose: 10 ml Sodium Chloride (Sodium Chloride Flush 0.9% 10 Ml Syringe) 10 ml IVP PRN PRN PRN Reason: NEEDED PER PROVIDER ORDERS Last Admin: 08/23/21 21:06 Dose: 10 ml Albuterol Sulf [Ventolin Hfa Inhaler] 2 puffs INH Q4H PRN 06/12/16 Aspirin 81 mg PO DAILY 06/12/16 lisinopriL [Lisinopril] 20 mg PO DAILY 06/12/16 polyethylene glycoL 3350 [Miralax] 17 gm PO DAILY 08/04/21 Objective - Vital Signs/Intake & Output Reviewed Vital Signs: Yes Vital Signs: Vital Signs x48h Pulse Pulse Resp BP BP Pulse Ox 08/24/21 09:05 103 H 19 100/58 L 97 08/24/21 09:04 100/58 L 08/24/21 08:00 84 18 Intake & Output: Intake & Output 02/0208/22/21 08/23/21 08/24/21 23:59 23:59 23:59 23:59 Intake Total 2357 1458 2905.274 1803.885 Output Total 150 1870 1575 365 Balance 2207 -412 2316.910 9383.885 - Objective General Appearance: positive: No acute distress, Alert Eyes Bilateral: positive: PERRL, EOMI ENT: positive: No signs of dehydration Neck: positive: No JVD. negative: Stiff neck Respiratory: positive: Other (Diminished breath sounds at bases and they are quite quiet. Short fast panting respiration but that is unchanged. There is no increased labor with this. She complains of constant shortness of breath and for many days she was asking for morphine since that relaxed her. No acidosis seen on labs.). negative: Wheezes, Rales, Rhonchi Cardiovascular: positive: Regular rate & rhythm. negative: Gallop/S4, Friction rub Abdomen: positive: Non-tender, Nml bowel sounds, No distention, Other (Vertical hypogastric midline scar covered with wound VAC. No surrounding induration. Left lower quadrant ostomy that is pink. Just above that and laterally to that is a drainage tube. Minimal drainage. Although abdomen is slightly achy, there is no rebound or guarding.) Skin: positive: Warm, Dry, Pallor Extremities: positive: Full ROM, Pedal edema (2+ to 3+ pedal edema from the groin down. She really does not want to elevate her legs.) Neurologic/Psychiatric: positive: Oriented x3, CN's nml (2-12), Motor nml - Lab Results Fish Bones: 08/24/21 12:50 08/24/21 12:50 ABX Reporting Has patient been on IV antibiotics over the past 48 hours?: Yes Sepsis Event Note (H) - Evaluation Current Stage of Sepsis: Resolved Possible source of Sepsis: positive: GI tract/intra-abdominal - Sepsis Criteria Sepsis Criteria: Recorded Heart Rate greater than 90 bpm, WBC count greater than 10% bands, WBC count greater than 12,000 or less than 4000, Metabolic: lactate > 2 mmol/L Assessment/Plan - Problem List (1) Anasarca Impression: By August 23, this patient was close to 43 L positive. She had gradually increasing doses of Lasix to the point that she is now on 3 times daily Lasix. While physical exam shows excellent mobilization of fluid and edema has improved over her upper body, she continues to have significant lower extremity edema. We continue to monitor intake and output, and at this point she is consistently about 1300 cc positive every day which is acceptable considering insensate body losses, etc. Weight is now noted to be 95.6 kg today. She was 98 kg August 21. Max weight was 100 kg August 12. Admitting weight was 74.8 kg. As such we have a ways to go to get her down to dry weight. In the face of poor nutrition and low albumin with low oncotic pressure, will continue to diurese. We will watch BUN and creatinine to make sure we do not throw her into prerenal azotemia. (2) Wheezing with h/o asthma Impression: No wheezing on exam since I have been on service 08/20. We cannot order elevate le gs above head for draining her anasarca, because she is already SOB, and occasional wheezing. She has a Hx of Albuterol use prior to admission. She likes the morphine for the feeling of sob/orthopnea and repetitively asks for it even though I have explained we are trying to diminish use of opioids in a post op patient whose cause of bowel rupture was stercoral perforation. Chest x-ray 08/19 has a stable right internal jugular catheter. Stable small left and trace right pleural effusion with atelectasis or consolidation of the adjacent lung bases. She feels that she is done better with the addition of Perforomist and budesonide since August 21. I have not heard wheezing on physical exam. I think her shortness of breath is due more to fluid overload than true asthma. Continue nebulizers that are short acting and long-acting. (3) Perforated abdominal viscus Impression: Present on admission and did not improve w abx and expectant management. Repeat CT on August 09 showed worsening pneumoperitoneum and ascites. Bandemia was getting worse on her white cell count. An attempt was made to transfer her to a higher level of care and could [place] be done [place] underwent an exploratory laparotomy with sigmoid colectomy and and and colectomy and Funk's pouch that day. She had postoperative ileus. She was started on TPN. She has a wound VAC. Initial antibiotics were Zosyn and Flagyl. She was then changed to cefepime and Flagyl. Vancomycin had been added because of rising white cell count. General surgery feels she has an enterococcal infection. Since the addition of vancomycin her white cell count has been coming down. Started on a mechanical soft diet 08/19. She is slowly improving. 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 Medications were all still IV 08/20 so I changed metoprolol and opiates to po. She had the wound VAC replaced over the weekend of 08/17. This was done because it was not sealed correctly and there was leaking. It was replaced by the nurse practitioner who is working that day and is also the director of the wound care program at [facility]. The plan was to pull the wound VAC, close upper open wound with retention sutures 08/23 and continue with ostomy care. She did see ostomy nurse 08/21 and that note states she will be seen daily. Then a CT of the abdomen was done which showed fluid collection on August 21. The second plan was to drain the fluid seen on CT 08/23 and delay the wound closure until next week. INR was >2 and she was given FFP but Radiology felt that even with the FFP, he wasn't going to drain her, so it was cancelled. Now our ongoing plan is to do the drainage by CT next week and then close a day or two later. (4) Status post colostomy, POD #15 Impression: She had a colectomy with diverting colostomy and Funk's pouch 08/09. She had a postoperative ileus. NPO status and was on TPN. Po food added 08/19. She is not eating well due to her fear of egg allergy. Nutrition services working with her to find ways to get her to eat and they are workiing on getting "packaged" food so that her food has not "touched" anything in the kitchen. TPN was gradually reduced and stopped by August 19. It is been difficult to get her to eat and we have had to coax her significantly. However, kitchen staff has been working diligently to try and find the right diet for her. As has nutrition services. She is eating anywhere from 50 to 80% of her meals. We will check albumin status tomorrow. (5) Hypokalemia Impression: Now that she is on Lasix, she needs intermittent replacement of K with iv r iders, and it was in her TPN. We are Monitor BMP and Mg daily and need po replacement . She is consistently hypokalemic in spite of supplementation. I hesitate to give her IV K riders due to fluid status overload. replace K again today Oral solution. She is already on medication on a consistent basis and I will double up on those doses. (6) Hyperglycemia Impression: This continues and is likely secondary to the dextrose in her TPN. We have adjusted the amount of dextrose and her blood glucose became in the acceptable range. Off TPN 08/20/21. Her A1c was within normal limits. 2 am hypoglycemia since NPO for CT and we are given OJ and feeding her. I did order D5 but she ended up not needing it. Selected Entries 08/21/21 08/21/21 08/21/21 08:00 11:40 12:06 Result (mg/dL) 78 66 67 08/21/21 08/21/21 08/21/21 14:59 17:00 17:34 Result (mg/dL) 105 71 71 08/21/21 08/21/21 08/22/21 21:00 21:33 07:19 Result (mg/dL) 82 82 73 08/22/21 07:25 Result (mg/dL) 73 she continues to be hypoglycemic after TPN stopped. Na and K need supplementation. I added D5 with 20 meq K but will watch fluid intake in face of our goal to help her anasarca With the D5 she was 100 on her glucose this morning. (7) Central line clotted off I spoke to phamacy and we will use alteplase. Chronic or resolved problems (8) Severe sepsis Impression: Resolved. This was secondary to perforated abdominal viscus. (9) Atrial fibrillation with RVR Impression: Resolved. She had a brief episode of Afib with RVR early on during this hospitalization but she has since been in a sinus rhythm. Her heart rates are stable. We are holding anticoagulation given the recent surgical intervention and the fact that her CHADS score is 0. Tele discontinued 08/20/21
[2021-08-24] MEDS: D5NS W/20 MEQ KCL 1,000 ML IV SCH (12:52)
[2021-08-24] MEDS: VANCOMYCIN INJ 1 GM, VANCOMYCIN INJ 500 MG in SODIUM CHLORIDE 0.9% 500 ML IV SCH (12:53)
[2021-08-24 13:05] LABS: BASOPHILS # (AUTO) 0.1 10^3/uL (0.0-0.1); BASOPHILS % (AUTO) 0.4 %; EOSINOPHILS # (AUTO) 0.2 10^3/uL (0.0-0.7); EOSINOPHILS % (AUTO) 1.5 %; HGB - HEMOGLOBIN 8.9 g/dL (12.0-16.0); LYMPHOCYTES # (AUTO) 0.7 10^3/uL (1.5-3.5); MEAN CORPUSCULAR HEMOGLOBIN 29.8 pg (27.0-31.0); MEAN CORPUSCULAR HGB CONC 31.8 g/dL (32.0-36.0); MEAN CORPUSCULAR VOLUME 93.6 fL (81.0-99.0); MEAN PLATELET VOLUME 8.4 fL (7.9-10.8); MONOCYTES # (AUTO) 0.6 10^3/uL (0.0-1.0); MONOCYTES % (AUTO) 4.9 %; NEUTROPHILS # (AUTO) 10.1 10^3/uL (1.5-6.6); NEUTROPHILS % (AUTO) 86.2 %; PLT - PLATELET COUNT 462 10^3/uL (130-450); RED BLOOD COUNT 2.99 10^6/uL (4.20-5.40); RED CELL DISTRIBUTION WIDTH 13.9 % (12.0-15.0); WHITE BLOOD COUNT 11.7 x10^3/uL (4.8-10.8)
[2021-08-24 13:11] LABS: CALCIUM 8.1 mg/dL (8.5-10.3); CREATININE 0.6 mg/dL (0.4-1.0); POTASSIUM 3.1 mmol/L (3.5-5.0)
[2021-08-24] MEDS: ALBUTEROL NEB 2.5 MG/3 ML INH SCH ×2 (13:33)
[2021-08-24] MEDS: SODIUM CHLORIDE FLUSH 0.9% 10 ML SYRINGE IVP PRN (16:11)
[2021-08-24] MEDS: MIN OIL/DIMETHICON/COCONUT OIL 92 GM TUBE TOP PRN ×2 (19:21→20:44)
[2021-08-24] MEDS: CLOTRIMAZOLE 10 MG LOZENGE MM SCH (22:15)
[2021-08-25] MEDS: SODIUM CHLORIDE FLUSH 0.9% 10 ML SYRINGE IVP PRN ×3 (00:08→20:43)
[2021-08-25] MEDS: SODIUM CHLORIDE FLUSH 0.9% 10 ML SYRINGE IVP SCH ×3 (00:08→16:30)
[2021-08-25] MEDS: VANCOMYCIN INJ 1 GM, VANCOMYCIN INJ 500 MG in SODIUM CHLORIDE 0.9% 500 ML IV SCH ×2 (00:49→13:26)
[2021-08-25] MEDS: metroNIDAZOLE 500 MG/100 ML 500 MG/100 ML BAG IV SCH ×3 (00:49→16:30)
[2021-08-25] MEDS: oxyCODONE 5 MG TABLET PO PRN ×4 (00:57→20:40)
[2021-08-25] MEDS: ACETAMINOPHEN 325 MG TABLET PO PRN ×2 (02:51→16:39)
[2021-08-25] MEDS: D5NS W/20 MEQ KCL 1,000 ML IV SCH (04:54)
[2021-08-25] MEDS: CLOTRIMAZOLE 10 MG LOZENGE MM SCH ×5 (06:36→20:51)
[2021-08-25] MEDS: FUROSEMIDE 40 MG/4 ML VIAL IVP SCH ×3 (06:36→18:50)
[2021-08-25] MEDS: PANTOPRAZOLE 40 MG TABLET PO SCH (06:36)
[2021-08-25] MEDS: FORMOTEROL FUMARATE NEB 20 MCG/2 ML INH SCH ×2 (07:32→21:09)
[2021-08-25] MEDS: BUDESONIDE 0.5 MG/2 ML NEB INH SCH ×2 (07:33→21:09)
[2021-08-25] MEDS: ALBUTEROL NEB 2.5 MG/3 ML INH SCH ×3 (07:33→15:39)
[2021-08-25] MEDS: CEFEPIME 2 GM in SODIUM CHLORIDE 0.9% MINIBAG 100 ML IV SCH ×2 (08:07→20:41)
[2021-08-25] MEDS: METOPROLOL TARTRATE 25 MG TABLET PO SCH ×2 (08:17→20:41)
[2021-08-25] MEDS: polyethylene glycoL 3350 17 GM PACKET PO SCH ×2 (08:17→20:41)
[2021-08-25] MEDS: POTASSIUM CHLORIDE 20 MEQ TABLET PO SCH ×2 (08:18→20:40)
--- NOTE | 2021-08-25 12:46 | PROVIDER PROGRESS NOTE ---
Subjective - Prog Note Date Prog Note Date: 08/25/21 Prog Note Time: 12:45 - Subjective Pt reports feeling: Improved Subjective: I am delighted this morning. She does not like to elevate her legs. She feels that that makes her more short of breath so she has been sitting in a chair, with her feet down on the ground and significant leg edema as her upper body edema has resolved. This morning her legs are elevated and even in 1 morning, her legs are already improved. She is now walking in the hallway with physical therapy and the nurse. She needs quite a bit of help because she is still connected to IV poles, and fatigues very easily. The nurse follows behind her with a wheelchair in case she needs to sit. She is pleased to report that she is tolerating her soft diet. This morning was oatmeal and yogurt and cranberry juice. Her main complaint is just easy, easy fatigability. I had hoped that she was good to be changing her own colostomy bag yesterday. But the ostomy nurse really wants to be there when she does it so that will be tomorrow. But the patient is learning and has learned to empty her own bag. Current Medications - Current Medications Current Medications: Active Medications Acetaminophen (Acetaminophen 325 Mg Tablet) 650 mg PO Q4HR PRN PRN Reason: PAIN Last Admin: 08/25/21 02:51 Dose: 650 mg Albuterol (Albuterol Neb 2.5 Mg/3 Ml) 2.5 mg INH RTQ4H PRN PRN Reason: Wheezing Last Admin: 08/24/21 00:37 Dose: 2.5 mg Albuterol (Albuterol Neb 2.5 Mg/3 Ml) 2.5 mg INH TID INGA Last Admin: 08/25/21 07:33 Dose: Not Given Budesonide (Budesonide 0.5 Mg/2 Ml Neb) 0.5 mg INH RTBID INGA Last Admin: 08/25/21 07:33 Dose: 0.5 mg Clotrimazole (Clotrimazole 10 Mg Lozenge) 10 mg MM 5XD INGA Stop: 08/31/21 21:59 Last Admin: 08/25/21 09:43 Dose: 10 mg Formoterol Fumarate (Formoterol Fumarate Neb 20 Mcg/2 Ml) 20 mcg INH RTBID INGA Last Admin: 08/25/21 07:32 Dose: 20 mcg Furosemide (Furosemide 40 Mg/4 Ml Vial) 40 mg IVP 0600,1200,1800 [facility] Last Admin: 08/25/21 11:54 Dose: 40 mg Cefepime HCl 2 gm/ Sodium (Chloride) 100 mls @ 200 mls/hr IV BID [facility] Last Infusion: 08/25/21 08:59 Dose: Infused Metronidazole (Flagyl 500 Mg/100 Ml) 500 mg in 100 mls @ 100 mls/hr IV Q8H [facility] Last Infusion: 08/25/21 10:42 Dose: Infused Potassium Chloride/Dextrose/Sod Cl (D5ns W/20 Meq Kcl) 1,000 mls @ 83.333 mls/hr IV .Q12H [facility] Last Admin: 08/25/21 04:54 Dose: 83.33 mls/hr Vancomycin HCl 1 gm/Vancomycin HCl 500 mg/ Sodium Chloride 500 mls @ 250 mls/hr IV Q12H [facility] Last Infusion: 08/25/21 03:10 Dose: Infused Metoclopramide HCl (Metoclopramide 10 Mg/2 Ml Vial) 5 mg IVP Q6HR PRN PRN Reason: Nausea / Vomiting Last Admin: 08/22/21 17:26 Dose: 5 mg Metoprolol Tartrate (Metoprolol Tartrate 25 Mg Tablet) 25 mg PO BID [facility] Last Admin: 08/25/21 08:17 Dose: 25 mg Mineral Oil (Min Oil/Dimethicon/Coconut Oil 92 Gm Tube) 1 applic TOP PRN PRN PRN Reason: Skin Care Last Admin: 08/24/21 20:44 Dose: 1 applic Oxycodone HCl (Oxycodone 5 Mg Tablet) 5 mg PO Q4HR PRN PRN Reason: PAIN Last Admin: 08/25/21 11:53 Dose: 5 mg Pantoprazole Sodium (Pantoprazole 40 Mg Tablet) 40 mg PO QDAC [facility] Last Admin: 08/25/21 06:36 Dose: 40 mg Polyethylene Glycol (Polyethylene Glycol 3350 17 Gm Packet) 17 gm PO BID [facility] Last Admin: 08/25/21 08:17 Dose: 17 gm Potassium Chloride (Potassium Chloride 20 Meq Tablet) 40 meq PO BID [facility] Stop: 08/25/21 21:01 Last Admin: 08/25/21 08:18 Dose: 40 meq Sodium Chloride (Sodium Chloride Flush 0.9% 10 Ml Syringe) 10 ml IVP 010 0,0900,1700 INGA Last Admin: 08/25/21 09:38 Dose: 10 ml Sodium Chloride (Sodium Chloride Flush 0.9% 10 Ml Syringe) 10 ml IVP PRN PRN PRN Reason: NEEDED PER PROVIDER ORDERS Last Admin: 08/25/21 00:08 Dose: 10 ml Albuterol Sulf [Ventolin Hfa Inhaler] 2 puffs INH Q4H PRN 06/12/16 Aspirin 81 mg PO DAILY 06/12/16 lisinopriL [Lisinopril] 20 mg PO DAILY 06/12/16 polyethylene glycoL 3350 [Miralax] 17 gm PO DAILY 08/04/21 Objective - Vital Signs/Intake & Output Reviewed Vital Signs: Yes Vital Signs: Vital Signs x48h Temp Pulse Pulse Resp BP BP Pulse Ox 08/25/21 08:17 116/83 H 08/25/21 08:14 36.7 C 104 H 18 116/83 H 94 08/25/21 07:49 80 18 Intake & Output: Intake & Output 08/22/21 08/23/21 08/24/21 08/25/21 23:59 23:59 23:59 23:59 Intake Total 1458 2905.274 2665.279 2998.611 Output Total 1870 1575 2115 263 Balance -412 1330.274 804.892 3805.611 - Objective General Appearance: positive: No acute distress, Alert, Other (Pale, fatigued appearing morbidly obese white female.) Eyes Bilateral: positive: PERRL, EOMI ENT: positive: No signs of dehydration Neck: positive: No JVD, Stiff neck Respiratory: positive: No respiratory distress, Other (Her subjective sensation of shortness of breath is much alleviated over the last 48 hours. She still has a tendency to pant or be mildly tachypneic but no use of accessory muscles. She actually improves with breathing when she is walking down the hallway.). negative: Wheezes, Rales, Rhonchi Cardiovascular: positive: Regular rate & rhythm. negative: Gallop/S4, Friction rub Abdomen: positive: Non-tender, Nml bowel sounds, No distention, Other (It is difficult to assess for organomegaly because her belly is so large. However she has a hypogastric vertical midline scar incision that is covered with wound VAC. No surrounding induration, redness, or drainage. To the left of that is an ostomy that is pink, draining. And to the left of that) Skin: positive: Warm, Dry, Pallor Extremities: positive: Non-tender, Pedal edema (Still with significant edema of the legs but visually the legs are much smaller.No skin breakdown, no bruising) Neurologic/Psychiatric: positive: Oriented x3, CN's nml (2-12), Motor nml - Lab Results Fish Bones: 08/24/21 12:50 08/24/21 12:50 Other Labs: Lab Results x24hrs 08/24/21 08/24/21 Range/Units 12:50 12:50 WBC 11.7 H (4.8-10.8) x10^3/uL RBC 2.99 L (4.20-5.40) 10^6/uL Hgb 8.9 L (12.0-16.0) g/dL Hct 28.0 L (37.0-47.0) % MCV 93.6 (81.0-99.0) fL MCH 29.8 (27.0-31.0) pg MCHC 31.8 L (32.0-36.0) g/dL RDW 13.9 (12.0-15.0) % Plt Count 462 H (130-450) 10^3/uL MPV 8.4 (7.9-10.8) fL Neut # (Auto) 10.1 H (1.5-6.6) 10^3/uL Lymph # (Auto) 0.7 L (1.5-3.5) 10^3/uL Tama # (Auto) 0.6 (0.0-1.0) 10^3/uL Eos # (Auto) 0.2 (0.0-0.7) 10^3/uL Baso # (Auto) 0.1 (0.0-0.1) 10^3/uL Absolute Nucleated RBC 0.00 x10^3/uL Nucleated RBC % 0.0 /100WBC Sodium 137 (135-145) mmol/L Potassium 3.1 L (3.5-5.0) mmol/L Chloride 99 L (101-111) mmol/L Carbon Dioxide 28 (21-32) mmol/L Anion Gap 10.0 (6-13) BUN 12 (6-20) mg/dL Creatinine 0.6 (0.4-1.0) mg/dL Estimated GFR (MDRD) 100 (>89) Glucose 189 H (70-100) mg/dL Calcium 8.1 L (8.5-10.3) mg/dL ABX Reporting Has patient been on IV antibiotics over the past 48 hours?: Yes Sepsis Event Note (H) - Evaluation Current Stage of Sepsis: Resolved Possible source of Sepsis: positive: GI tract/intra-abdominal - Sepsis Criteria Sepsis Criteria: Recorded Heart Rate greater than 90 bpm, WBC count greater than 10% bands, WBC count greater than 12,000 or less than 4000, Metabolic: lactate > 2 mmol/L Assessment/Plan - Problem List (1) Anasarca Impression: By August 23, this patient was close to 43 L positive. She had gradually increasing doses of Lasix to the point that she is now on 3 times daily Lasix. While physical exam shows excellent mobilization of fluid and edema has improved over her upper body this week, she continues to have significant lower extremity edema and positive fluid status daily. We continue to monitor intake and output, and at this point she is consistently about 1300 cc positive every day which is acceptable considering insensate body losses, etc. Weight is now noted to be 90kg today! She was 95.5 yesterday. She was 98 kg August 21. Max weight was 100 kg August 12. Admitting weight was 74.8 kg. We have a ways to go to get her down to dry weight especially in the face of poor nutrition and low albumin with low oncotic pressure. Tremendous improvment this week and she and I are very excited about it. will continue to diurese. We will watch BUN and creatinine to make sure we do not throw her into prerenal azotemia. (2) Wheezing with h/o asthma Impression: No wheezing on exam since I have been on service 08/20. Then today was the first day I heard faint wheezing in the lower lungs. She has a Hx of Albuterol use prior to admission. She likes the morphine for the feeling of sob/orthopnea and repetitively asks for it even though I have explained we are trying to diminish use of opioids in a post op patient whose cause of bowel rupture was stercoral perforation. So no morphine for a few days now. Chest x-ray 08/19 has a stable right internal jugular catheter. Stable small left and trace right pleural effusion with atelectasis or consolidation of the adjacent lung bases. She feels that she is done better with the addition of Perforomist and bu desonide since August 21. In spite of wheezing, I do think her shortness of breath is due more to fluid overload than true asthma. Continue nebulizers that are short acting and long-acting. (3) Perforated abdominal viscus Impression: Present on admission and did not improve w abx and expectant management. Repeat CT on August 09 showed worsening pneumoperitoneum and ascites. Bandemia was getting worse on her white cell count. An attempt was made to transfer her to a higher level of care and could [place] be [place] she underwent an exploratory laparotomy with sigmoid colectomy and and and colectomy and Funk's pouch that day. She had postoperative ileus. She was started on TPN. She has a wound VAC. Initial antibiotics were Zosyn and Flagyl. She was then changed to cefepime and Flagyl. Vancomycin had been added because of rising white cell count. General surgery feels she has an enterococcal infection. Since the addition of vancomycin her white cell count has been coming down. Started on a mechanical soft diet 08/19. She is slowly improving. 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 Medications were all still IV 08/20 so I changed metoprolol and opiates to po. She had the wound VAC replaced over the weekend of 08/17. This was done because it was not sealed correctly and there was leaking. It was replaced by the nurse practitioner who is working that day and is also the director of the wound care program at [facility]. The plan was to pull the wound VAC, close upper open wound with retention sutures 08/23 and continue with ostomy care. She did see ostomy nurse 08/21 and that note states she will be seen daily. Then a CT of the abdomen was done which showed fluid collection on August 21. The second plan was to drain the fluid seen on CT 08/23 and delay the wound closure until next week. INR was >2 and she was given FFP but Radiology felt that even with the FFP, he wasn't going to drain her, so it was cancelled. Now our ongoing plan is to do the drainage by CT next week and then close a day or two later. (4) Status post colostomy, POD #16 Impression: She had a colectomy with diverting colostomy and Funk's pouch 1. She had a postoperative ileus. NPO status and was on TPN. Po food added 08/19. She is not eating well due to her fear of egg allergy. Nutrition services working with her to find ways to get her to eat and they are workiing on getting "packaged" food so that her food has not "touched" anything in the kitchen. TPN was gradually reduced and stopped by August 19. It is been difficult to get her to eat and we have had to coax her significantly. However, kitchen staff has been working diligently to try and find the right diet for her. As has nutrition services. She is eating anywhere from 75% to 80% of her meals. I have ordered CMP and will assess alb with that. Eating has definitely helped her low glucose (5) Hypokalemia Impression: Now that she is on Lasix, she needs intermittent replacement of K with iv riders, and it was in her TPN. We are Monitor BMP and Mg daily and need po replacement . She is consistently hypokalemic in spite of supplementation. I hesitate to give her IV K riders due to fluid status overload. replace K again today Oral solution. She is already on medication on a cons istent basis and I have doubled up on those doses. (6) Hyperglycemia Impression: This was likely secondary to the dextrose in her TPN. We have adjusted the amou nt of dextrose and her blood glucose became in the acceptable range. Off TPN 08/20/21. Her A1c was within normal limits. 2/2 am hypoglycemia since NPO for CT and we are given OJ and feeding her. I did order D5 but she ended up not needing it. Selected Entries 08/21/21 08/21/21 08/21/21 08:00 11:40 12:06 Result (mg/dL) 78 66 67 08/21/21 08/21/21 08/21/21 14:59 17:00 17:34 Result (mg/dL) 105 71 71 08/21/21 08/21/21 08/22/21 21:00 21:33 07:19 Result (mg/dL) 82 82 73 08/22/21 07:25 Result (mg/dL) 73 she continues to be hypoglycemic after TPN stopped. Na and K need supplementation. I added D5 with 20 meq K but will watch fluid intake in face of our goal to help her anasarca With the D5 she was 189 today. Change to NS now. (7) Central line clotted off 08/24 I spoke to phamacy and we used 2 doses of alteplase. Chronic or resolved problems (8) Severe sepsis Impression: Resolved. This was secondary to perforated abdominal viscus. (9) Atrial fibrillation with RVR Impression: Resolved. She had a brief episode of Afib with RVR early on during this hospitalization but she has since been in a sinus rhythm. Her heart rates are stable. We are holding anticoagulation given the recent surgical intervention and the fact that her CHADS score is 0. Tele discontinued 08/20/21
[2021-08-25 13:39] LABS: ALBUMIN 1.8 g/dL (3.2-5.5); ALBUMIN/GLOBULIN RATIO 0.5 (1.0-2.2); BILIRUBIN,TOTAL 0.3 mg/dL (0.2-1.0); CALCIUM 7.7 mg/dL (8.5-10.3); CREATININE 0.5 mg/dL (0.4-1.0); TOTAL PROTEIN 5.2 g/dL (6.7-8.2)
[2021-08-25] MEDS: NS W/20 MEQ KCL 1,000 ML IV SCH (14:40)
--- NOTE | 2021-08-25 15:12 | PROVIDER PROGRESS NOTE ---
Subjective - General Admit Date: 08/04/21 Procedure Date: 08/09/21 Post Op Days: 16 Procedure Performed: Laparotomy with Kenneth procedure - Review of Systems Wound/Incisions: positive: Other (Wound images show granulation without purulence. Still a very large wound. Ostomy device is holding and ostomy is working) Drain Type: Mo Drain Output Description: Serous General: positive: Weakness HEENT: positive: No symptoms Pulmonary: negative: Shortness of breath Cardiovascular: positive: No symptoms Gastrointestinal: positive: Abdominal pain. negative: Nausea, Vomiting Genitourinary: positive: No symptoms Skin: positive: Other (Still frustrated about the swelling) All Other Systems: positive: Reviewed and negative - Other Other Information/Narrative: Na is in good spirits. She has found a rehab she would like to go to in [place]. It is called [facility] and is near her daughters. Additi onally, she knows someone who works there and she would feel safe. Her pain is controlled and she has continued to eat. Objective - Patient Data Reviewed Vital Signs: Yes Vital Signs: Vital Signs x48h Temp Pulse Pulse Resp BP BP Pulse Ox 08/25/21 13:03 80 18 08/25/21 08:17 116/83 H 08/25/21 08:14 36.7 C 104 H 18 116/83 H 94 08/25/21 07:49 80 18 Weight: Weight 08/23/21 08/24/21 08/25/21 23:59 23:59 23:59 Weight (kg) 95.6 kg 90 kg Intake & Output: Intake and Output Totals x24h 08/23/21 08/24/21 08/25/21 23:59 23:59 23:59 Intake Total 2905.274 2665.279 4404.980 Output Total 1575 2115 1213 Balance 1330.274 421.921 1174.980 - Lab Results Lab Results: 08/24/21 12:50 08/25/21 13:15 Other Lab Results: Lab Results x24hrs 08/25/21 Range/Units 13:15 Sodium 135 (135-145) mmol/L Potassium 3.0 L (3.5-5.0) mmol/L Chloride 100 L (101-111) mmol/L Carbon Dioxide 27 (21-32) mmol/L Anion Gap 8.0 (6-13) BUN 11 (6-20) mg/dL Creatinine 0.5 (0.4-1.0) mg/dL Estimated GFR (MDRD) 123 (>89) Glucose 153 H (70-100) mg/dL Calcium 7.7 L (8.5-10.3) mg/dL Total Bilirubin 0.3 (0.2-1.0) mg/dL AST 21 (10-42) IU/L ALT 14 (10-60) IU/L Alkaline Phosphatase 91 (42-121) IU/L Total Protein 5.2 L (6.7-8.2) g/dL Albumin 1.8 L (3.2-5.5) g/dL Globulin 3.4 (2.1-4.2) g/dL Albumin/Globulin Ratio 0.5 L (1.0-2.2) - Current Medications Current Medications: Current Medications Generic Name Dose Route Start Last Admin Trade Name Freq PRN Reason Stop Dose Admin Acetaminophen 650 mg 08/04/21 14:01 08/25/21 02:51 Acetaminophen 325 Mg Tablet PO 650 mg Q4HR PRN Administration PAIN Albuterol 2.5 mg 08/04/21 17:26 08/24/21 00:37 Albuterol Neb 2.5 Mg/3 Ml INH 2.5 mg RTQ4H PRN Administration Wheezing Albuterol 2.5 mg 08/15/21 22:00 08/25/21 13:02 Albuterol Neb 2.5 Mg/3 Ml INH 2.5 mg TID INGA Administration Budesonide 0.5 mg 08/21/21 19:00 08/25/21 07:33 Budesonide 0.5 Mg/2 Ml Neb INH 0.5 mg RTBID INGA Administration Clotrimazole 10 mg 08/24/21 22:00 08/25/21 14:40 Clotrimazole 10 Mg Lozenge MM 08/31/21 21:59 10 mg 5XD INGA Administration Formoterol Fumarate 20 mcg 08/21/21 19:00 08/25/21 07:32 Formoterol Fumarate Neb 20 Mcg/2 Ml INH 20 mcg RTBID INGA Administration Furosemide 40 mg 08/19/21 14:00 08/25/21 11:54 Furosemide 40 Mg/4 Ml Vial IVP 40 mg 0600,1200,1800 IN[facility] Administration Cefepime HCl 2 gm/ Sodium 100 mls @ 200 mls/hr 08/07/21 09:00 08/25/21 08:59 Chloride IV Infused BID IN[facility] Infusion Metronidazole 500 mg in 100 mls @ 100 mls/hr 08/07/21 15:00 08/25/21 10:42 Flagyl 500 Mg/100 Ml IV Infused Q8H [facility] Infusion Vancomycin HCl 1 gm/ 500 mls @ 250 mls/hr 08/24/21 13:00 08/25/21 13:26 Vancomycin HCl 500 mg/ Sodium IV 250 mls/hr Chloride Q12H IN[facility] Administration Potassium Chloride/Sodium Chloride 1,000 mls @ 83.333 mls/hr 08/25/21 14:00 08/25/21 14:41 Normal Saline 0.9% W/20 Meq Kcl IV 0 mls/hr .Q12H IN[facility] Infusion Metoclopramide HCl 5 mg 08/22/21 11:35 08/22/21 17:26 Metoclopramide 10 Mg/2 Ml Vial IVP 5 mg Q6HR PRN Administration Nausea / Vomiting Metoprolol Tartrate 25 mg 08/20/21 21:00 08/25/21 08:17 Metoprolol Tartrate 25 Mg Tablet PO 25 mg BID INGA Administration Mineral Oil 1 applic 08/07/21 17:17 08/24/21 20:44 Min Oil/Dimethicon/Coconut Oil 92 Gm Tube TOP 1 applic PRN PRN Administration Skin Care Oxycodone HCl 5 mg 08/19/21 11:04 08/25/21 11:53 Oxycodone 5 Mg Tablet PO 5 mg Q4HR PRN Administration PAIN Pantoprazole Sodium 40 mg 08/05/21 07:00 08/25/21 06:36 Pantoprazole 40 Mg Tablet PO 40 mg QDAC [facility] Administration Polyethylene Glycol 17 gm 08/16/21 21:00 08/25/21 08:17 Polyethylene Glycol 3350 17 Gm Packet PO 17 gm BID INGA Administration Potassium Chloride 40 meq 08/25/21 09:00 08/25/21 08:18 Potassium Chloride 20 Meq Tablet PO 08/25/21 21:01 40 meq BID IN[facility] Administration Sodium Chloride 10 ml 08/04/21 17:00 08/25/21 09:38 Sodium Chloride Flush 0.9% 10 Ml Syringe IVP 10 ml 0100,0900,1700 INGA Administration Sodium Chloride 10 ml 08/04/21 14:01 08/25/21 00:08 Sodium Chloride Flush 0.9% 10 Ml Syringe IVP 10 ml PRN PRN Administration NEEDED PER PROVIDER ORDERS - Physical Exam Wound/Incisions: positive: Other (Wound vac is in place and working. Ostomy is viable and working) General Appearance: positive: No acute distress, Alert Eyes Bilateral: positive: Normal inspection, PERRL, EOMI ENT: positive: ENT inspection nml Respiratory: positive: No respiratory distress, Breath sounds nml Cardiovascular: positive: Regular rate & rhythm Abdomen: positive: Nml bowel sounds. negative: Guarding, Rebound Skin: positive: Color nml Extremities: positive: Other (Bilateral lower extremity edema but softer each day). negative: Calf tenderness Neurologic/Psychiatric: positive: Oriented x3 ABX Reporting Has patient been on IV antibiotics over the past 48 hours?: Yes Impression/Plan - Problem List Problem List: 1. Plan for wound closure in the morning. Will make NPO tonight 2. Will recheck coags in the AM. Need to drain the collection prior to discharge. Will discuss with radiology and shoot for tomorrow afternoon or Thursday morning. 3. Albumin is improving but we have a long way to go. Continue to encourage po intake 4. Ostomy is working. Continue bid miralax 5.WBCs are normalizing but will need to continue antibiotics until the collection is fully drained
[2021-08-25] MEDS: MIN OIL/DIMETHICON/COCONUT OIL 92 GM TUBE TOP PRN (20:41)
[2021-08-26] MEDS: metroNIDAZOLE 500 MG/100 ML 500 MG/100 ML BAG IV SCH ×3 (00:46→17:15)
[2021-08-26] MEDS: SODIUM CHLORIDE FLUSH 0.9% 10 ML SYRINGE IVP SCH ×3 (00:47→17:39)
[2021-08-26] MEDS: ACETAMINOPHEN 325 MG TABLET PO PRN ×3 (00:47→12:15)
[2021-08-26] MEDS: VANCOMYCIN INJ 1 GM, VANCOMYCIN INJ 500 MG in SODIUM CHLORIDE 0.9% 500 ML IV SCH (01:47)
[2021-08-26] MEDS: ALBUTEROL NEB 2.5 MG/3 ML INH SCH ×4 (04:23→19:28)
[2021-08-26] MEDS: ALBUTEROL NEB 2.5 MG/3 ML INH PRN (04:23)
[2021-08-26] MEDS: NS W/20 MEQ KCL 1,000 ML IV SCH ×2 (06:33→21:04)
[2021-08-26] MEDS: FUROSEMIDE 40 MG/4 ML VIAL IVP SCH (06:34)
[2021-08-26] MEDS: PANTOPRAZOLE 40 MG TABLET PO SCH (06:34)
[2021-08-26] MEDS: CLOTRIMAZOLE 10 MG LOZENGE MM SCH ×5 (06:41→21:06)
[2021-08-26] MEDS: BUDESONIDE 0.5 MG/2 ML NEB INH SCH ×2 (07:06→19:28)
[2021-08-26] MEDS: FORMOTEROL FUMARATE NEB 20 MCG/2 ML INH SCH ×2 (07:07→21:17)
--- NOTE | 2021-08-26 07:39 | ANESTHESIA ---
Pre-Anesthesia VS, & Labs - Diagnosis would closure s/p ex lap - Procedure Wound closure and washout Vital Signs: Temp Pulse Resp BP Pulse Ox 36.3 C L 92 189 H 121/65 95 08/26/21 05:03 08/26/21 07:12 08/26/21 07:12 08/26/21 05:03 08/26/21 05:03 Height: 5 ft 3 in Weight (kg): 89.5 kg Body Mass Index: 34.9 BMI Classification: Obese - NPO >8 hours - Is Patient ?: No - Lab Results Current Lab Results: Laboratory Tests 08/25/21 13:15: Sodium 135, Potassium 3.0 L, Chloride 100 L, Carbon Dioxide 27, Anion Gap 8.0, BUN 11, Creatinine 0.5, Estimated GFR (MDRD) 123, Glucose 153 H, Calcium 7.7 L, Total Bilirubin 0.3, AST 21, ALT 14, Alkaline Phosphatase 91, Total Protein 5.2 L, Albumin 1.8 L, Globulin 3.4, Albumin/Globulin Ratio 0.5 L 08/24/21 12:50: Sodium 137, Potassium 3.1 L, Chloride 99 L, Carbon Dioxide 28, Anion Gap 10.0, BUN 12, Creatinine 0.6, Estimated GFR (MDRD) 100, Glucose 189 H, Calcium 8.1 L 08/24/21 12:50: WBC 11.7 H, RBC 2.99 L, Hgb 8.9 L, Hct 28.0 L, MCV 93.6, MCH 29.8, MCHC 31.8 L, RDW 13.9, Plt Count 462 H, MPV 8.4, Neut # (Auto) 10.1 H, Lymph # (Auto) 0.7 L, [place] # (Auto) 0.6, Eos # (Auto) 0.2, Baso # (Auto) 0.1, Absolute Nucleated RBC 0.00, Nucleated RBC % 0.0 08/23/21 09:22: Last Dose Date 08/22/21, Last Dose Time 042, Random Vancomycin 11.0 08/23/21 07:38: PT 22.6 H, INR 2.0 H 08/23/21 07:38: Sodium 139, Potassium 3.1 L, Chloride 97 L, Carbon Dioxide 29, Anion Gap 13.0, BUN 13, Creatinine 0.7, Estimated GFR (MDRD) 83 L, Glucose 79, Calcium 8.6 08/23/21 07:38: WBC 15.4 H, RBC 3.27 L, Hgb 9.7 L, Hct 30.2 L, MCV 92.4, MCH 29.7, MCHC 32.1, RDW 13.8, Plt Count 539 H, MPV 8.2, Neut # (Auto) 13.3 H, Lymph # (Auto) 1.0 L, [place] # (Auto) 0.7, Eos # (Auto) 0.2, Baso # (Auto) 0.1, Absolute Nucleated RBC 0.00, Nucleated RBC % 0.0 08/22/21 13:14: Last Dose Date 08/22/21, Last Dose Time 424, Vancomycin Trough 29.0 H* 08/22/21 09:25: Blood Type O POSITIVE 08/22/21 07:14: POC Whole Bld Glucose 73 08/22/21 05:21: Blood Type Recheck O POSITIVE 08/22/21 05:21: PT 28.7 H, INR 2.6 H 08/22/21 05:21: Sodium 133 L, Potassium 3.2 L, Chloride 95 L, Carbon Dioxide 29, Anion Gap 9.0, BUN 14, Creatinine 0.5, Estimated GFR (MDRD) 123, Glucose 72, Calcium 7.8 L 08/22/21 05:21: WBC 15.7 H, RBC 2.89 L, Hgb 8.6 L, Hct 26.9 L, MCV 93.1, MCH 29.8, MCHC 32.0, RDW 13.7, Plt Count 532 H, MPV 8.6, Neut # (Auto) 13.8 H, Lymph # (Auto) 0.8 L, [place] # (Auto) 0.7, Eos # (Auto) 0.2, Baso # (Auto) 0.1, Absolute Nucleated RBC 0.00, Nucleated RBC % 0.0 08/21/21 21:19: POC Whole Bld Glucose 82 08/21/21 16:34: POC Whole Bld Glucose 71 08/21/21 14:58: POC Whole Bld Glucose 105 H 08/21/21 12:05: POC Whole Bld Glucose 67 L 08/21/21 11:43: POC Whole Bld Glucose 66 L 08/21/21 08:09: POC Whole Bld Glucose 78 08/21/21 06:48: Sodium 138, Potassium 3.2 L, Chloride 99 L, Carbon Dioxide 30, Anion Gap 9.0, BUN 16, Creatinine 0.4, Estimated GFR (MDRD) 159, Glucose 82, Calcium 8.4 L 08/21/21 06:48: WBC 20.1 H, RBC 3.31 L, Hgb 9.9 L, Hct 30.8 L, MCV 93.1, MCH 29.9, MCHC 32.1, RDW 13.9, Plt Count 592 H, MPV 8.3, Neut # (Auto) 18.2 H, Lymph # (Auto) 0.8 L, [place] # (Auto) 0.9, Eos # (Auto) 0.1, Baso # (Auto) 0.1, Absolute Nucleated RBC 0.00, Nucleated RBC % 0.0, Manual Slide Review Indicated, Platelet Estimate INCREASED (>450,000), Platelet Morphology NORMAL APPEARANCE, RBC Morph Micro Appear 1+ HYPOCHROMASIA 08/20/21 20:43: POC Whole Bld Glucose 119 H 08/20/21 17:25: POC Whole Bld Glucose 111 H 08/20/21 12:07: POC Whole Bld Glucose 164 H 08/20/21 06:02: POC Whole Bld Glucose 126 H 08/20/21 05:55: Sodium 136, Potassium 3.3 L, Chloride 97 L, Carbon Dioxide 31, Anion Gap 8.0, BUN 16, Creatinine 0.5, Estimated GFR (MDRD) 123, Glucose 146 H, Calcium 8.3 L, Albumin 1.6 L 08/20/21 05:55: WBC 19.7 H, RBC 3.15 L, Hgb 9.5 L, Hct 29.4 L, MCV 93.3, MCH 30.2, MCHC 32.3, RDW 13.8, Plt Count 615 H, MPV 8.1, Neut # (Auto) 17.8 H, Lymph # (Auto) 0.6 L, [place] # (Auto) 0.9, Eos # (Auto) 0.1, Baso # (Auto) 0.1, Absolute Nucleated RBC 0.00, Nucleated RBC % 0.0 08/19/21 23:33: POC Whole Bld Glucose 151 H 08/19/21 16:27: POC Whole Bld Glucose 143 H 08/19/21 11:18: POC Whole Bld Glucose 144 H 08/19/21 11:00: Last Dose Date 08/19/20, Last Dose Time 0157, Vancomycin Trough 21.3 H 08/19/21 06:18: POC Whole Bld Glucose 144 H 08/19/21 05:25: Sodium 138, Potassium 3.2 L, Chloride 101, Carbon Dioxide 30, Anion Gap 7.0, BUN 16, Creatinine 0.5, Estimated GFR (MDRD) 123, Glucose 133 H, Calcium 8.2 L 08/19/21 05:25: WBC 21.2 H, RBC 3.16 L, Hgb 9.5 L, Hct 29.3 L, MCV 92.7, MCH 30.1, MCHC 32.4, RDW 13.8, Plt Count 726 H, MPV 8.4, Neut # (Auto) Not Reportable, Lymph # (Auto) Not Reportable, [place] # (Auto) Not Reportable, Eos # (Auto) Not Reportable, Baso # (Auto) Not Reportable, Absolute Nucleated RBC Not Reportable, Total Counted 100, Band Neuts % (Manual) 1, Abnorm Lymph % (Manual) 0, Nucleated RBC % Not Reportable, Neutrophils # (Manual) 19.7 H, Lymphocytes # (Manual) 0.8 L, Monocytes # (Manual) 0.6, Eosinophils # (Manual) 0.0, Basophils # (Manual) 0.0, Differential Comment MANUAL DIFFERENTIAL, WBC Morphology NORMAL APPEARANCE, Platelet Estimate INCREASED (>450,000), Platelet Morphology NORMAL APPEARANCE, RBC Morph Micro Appear NORMAL APPEARANCE 08/18/21 23:48: POC Whole Bld Glucose 118 H 08/18/21 18:13: POC Whole Bld Glucose 155 H 08/18/21 17:50: Potassium 3.5 08/18/21 11:50: POC Whole Bld Glucose 159 H 08/18/21 06:35: Sodium 137, Potassium 2.9 L, Chloride 98 L, Carbon Dioxide 30, Anion Gap 9.0, BUN 16, Creatinine 0.4, Estimated GFR (MDRD) 159, Glucose 149 H, Calcium 8.3 L 08/18/21 06:35: WBC 21.9 H, RBC 3.43 L, Hgb 10.4 L, Hct 32.1 L, MCV 93.6, MCH 30.3, MCHC 32.4, RDW 13.8, Plt Count 730 H, MPV 8.7, Neut # (Auto) Not Reportable, Lymph # (Auto) Not Reportable, [place] # (Auto) Not Reportable, Eos # (Auto) Not Reportable, Baso # (Auto) Not Reportable, Absolute Nucleated RBC Not Reportable, Total Counted 100, Band Neuts % (Manual) 0, Abnorm Lymph % (Manual) 0, Nucleated RBC % Not Reportable, Neutrophils # (Manual) 19.3 H, Lymphocytes # (Manual) 1.3 L, Monocytes # (Manual) 1.3 H, Eosinophils # (Manual) 0.0, Basophils # (Manual) 0.0, Differential Comment MANUAL DIFFERENTIAL, Platelet Est imate INCREASED (>450,000), Platelet Morphology NORMAL APPEARANCE, RBC Morph Micro Appear NORMAL APPEARANCE 08/18/21 05:37: POC Whole Bld Glucose 129 H 08/18/21 00:10: POC Whole Bld Glucose 144 H 08/17/21 18:15: POC Whole Bld Glucose 131 H 08/17/21 11:11: POC Whole Bld Glucose 161 H 08/17/21 10:53: Sodium 138, Potassium 3.2 L, Chloride 99 L, Carbon Dioxide 31, Anion Gap 8.0, BUN 16, Creatinine 0.4, Estimated GFR (MDRD) 159, Glucose 154 H, Calcium 8.1 L 08/17/21 10:53: WBC 23.7 H, RBC 3.34 L, Hgb 10.0 L, Hct 31.1 L, MCV 93.1, MCH 29.9, MCHC 32.2, RDW 13.7, Plt Count 701 H, MPV 8.3 08/17/21 05:31: POC Whole Bld Glucose 112 H 08/16/21 23:59: POC Whole Bld Glucose 128 H 08/16/21 18:53: POC Whole Bld Glucose 94 08/16/21 17:55: POC Whole Bld Glucose 55 L* 08/16/21 11:59: POC Whole Bld Glucose 151 H 08/16/21 10:15: Last Dose Date 08/16/21, Last Dose Time 00:33, Vancomycin Trough 11.6 08/16/21 06:20: WBC 21.5 H, RBC 3.37 L, Hgb 10.1 L, Hct 31.0 L, MCV 92.0, MCH 30.0, MCHC 32.6, RDW 13.5, Plt Count 625 H, MPV 8.5, Neut # (Auto) Not Reportable, Lymph # (Auto) Not Reportable, [place] # (Auto) Not Reportable, Eos # (Auto) Not Reportable, Baso # (Auto) Not Reportable, Absolute Nucleated RBC Not Reportable, Total Counted 100, Band Neuts % (Manual) 5, Abnorm Lymph % (Manual) 0, Metamyelocytes % 1 H, Myelocytes % 1 H, Nucleated RBC % Not Reportable, Neutrophils # (Manual) 18.5 H, Lymphocytes # (Manual) 1.1 L, Monocytes # (Manual) 0.9, Eosinophils # (Manual) 0.6, Basophils # (Manual) 0.0, Differential Comment MANUAL DIFFERENTIAL, Platelet Estimate INCREASED (>450,000), RBC Morph Micro Appear 1+ POLYCHROMASIA 08/16/21 06:20: Sodium 136, Potassium 3.1 L, Chloride 98 L, Carbon Dioxide 30, Anion Gap 8.0, BUN 16, Creatinine 0.4, Estimated GFR (MDRD) 159, Glucose 123 H, Calcium 8.1 L, Phosphorus 2.4 L, Magnesium 1.8, Total Bilirubin 0.3, AST 29, ALT 20, Alkaline Phosphatase 56, Total Protein 4.7 L, Albumin 1.5 L, Globulin 3.2, Albumin/Globulin Ratio 0.5 L, Prealbumin 8 L, Triglycerides 80 08/16/21 06:09: POC Whole Bld Glucose 113 H 08/16/21 00:21: POC Whole Bld Glucose 131 H 08/15/21 17:52: POC Whole Bld Glucose 111 H 08/15/21 12:04: POC Whole Bld Glucose 167 H 08/15/21 05:16: POC Whole Bld Glucose 139 H 08/15/21 05:15: Phosphorus 2.0 L 08/15/21 05:15: Sodium 135, Potassium 2.8 L, Chloride 98 L, Carbon Dioxide 29, Anion Gap 8.0, BUN 16, Creatinine 0.4, Estimated GFR (MDRD) 159, Glucose 157 H, Calcium 7.9 L 08/15/21 05:15: WBC 22.3 H, RBC 3.44 L, Hgb 10.4 L, Hct 32.0 L, MCV 93.0, MCH 30.2, MCHC 32.5, RDW 13.4, Plt Count 584 H, MPV 8.7, Neut # (Auto) Not Reportable, Lymph # (Auto) Not Reportable, [place] # (Auto) Not Reportable, Eos # (Auto) Not Reportable, Baso # (Auto) Not Reportable, Absolute Nucleated RBC Not Reportable, Total Counted 100, Band Neuts % (Manual) 13 H, Abnorm Lymph % (Manual) 0, Nucleated RBC % Not Reportable, Neutrophils # (Manual) 18.3 H, Lymphocytes # (Manual) 2.2, Monocytes # (Manual) 1.8 H, Eosinophils # (Manual) 0.0, Basophils # (Manual) 0.0, Differential Comment MANUAL DIFFERENTIAL, Platelet Estimate INCREASED (>450,000), RBC Morph Micro Appear NORMAL APPEARANCE 08/14/21 23:36: POC Whole Bld Glucose 148 H 08/14/21 17:59: POC Whole Bld Glucose 135 H 08/14/21 11:04: POC Whole Bld Glucose 171 H 08/14/21 06:00: Sodium 136, Potassium 3.3 L, Chloride 101, Carbon Dioxide 29, Anion Gap 6.0, BUN 15, Creatinine 0.6, Estimated GFR (MDRD) 100, Glucose 134 H, Calcium 8.1 L 08/14/21 06:00: WBC 28.1 H, RBC 3.83 L, Hgb 11.6 L, Hct 35.5 L, MCV 92.7, MCH 30.3, MCHC 32.7, RDW 13.2, Plt Count 518 H, MPV 8.4, Neut # (Auto) 23.9 H, Lymph # (Auto) 0.9 L, [place] # (Auto) 1.6 H, Eos # (Auto) 0.1, Baso # (Auto) 0.1, Absolute Nucleated RBC 0.00, Band Neuts % (Manual) Not Reportable, Abnorm Lymph % (Manual) Not Reportable, Nucleated RBC % 0.0, Neutrophils # (Manual) Not Reportable, Lymphocytes # (Manual) Not Reportable, Monocytes # (Manual) Not Reportable, Eosinophils # (Manual) Not Reportable, Basophils # (Manual) Not Reportable, Differential Comment MANUAL=AUTO DIFF, WBC Morphology NORMAL APPEARANCE, Platelet Estimate INCREASED (>450,000), Platelet Morphology NORMAL APPEARANCE, RBC Morph Micro Appear 1+ ANISOCYTOSIS 08/14/21 05:34: POC Whole Bld Glucose 160 H 08/13/21 23:32: POC Whole Bld Glucose 184 H 08/13/21 17:24: POC Whole Bld Glucose 177 H 08/13/21 12:15: POC Whole Bld Glucose 212 H 08/13/21 06:00: WBC 20.4 H, RBC 3.60 L, Hgb 11.0 L, Hct 33.6 L, MCV 93.3, MCH 30.6, MCHC 32.7, RDW 13.1, Plt Count 410, MPV 8.5, Neut # (Auto) Not Reportable, Lymph # (Auto) Not Reportable, [place] # (Auto) Not Reportable, Eos # (Auto) Not Re portable, Baso # (Auto) Not Reportable, Absolute Nucleated RBC Not Reportable, Total Counted 100, Band Neuts % (Manual) 0, Abnorm Lymph % (Manual) 0, Metamyelocytes % 1 H, Myelocytes % 1 H, Nucleated RBC % Not Reportable, Neutrophils # (Manual) 18.6 H, Lymphocytes # (Manual) 0.4 L, Monocytes # (Manu al) 1.0, Eosinophils # (Manual) 0.0, Basophils # (Manual) 0.0, Differential Comment MANUAL DIFFERENTIAL, WBC Morphology NORMAL APPEARANCE, Platelet Estimate NORMAL (130-450,000), Platelet Morphology NORMAL APPEARANCE, RBC Morph Micro Appear NORMAL APPEARANCE 08/13/21 06:00: Sodium 136, Potassium 3.3 L, Chloride 103, Carbon Dioxide 27, Anion Gap 6.0, BUN 18, Creatinine 0.5, Estimated GFR (MDRD) 123, Glucose 197 H, Calcium 7.9 L, Phosphorus 2.0 L, Magnesium 1.7, Total Bilirubin 0.3, AST 19, ALT 15, Alkaline Phosphatase 52, Total Protein 4.1 L, Albumin 1.4 L, Globulin 2.7, Albumin/Globulin Ratio 0.5 L, Prealbumin 6 L, Triglycerides 102 08/13/21 05:39: POC Whole Bld Glucose 211 H 08/12/21 23:42: POC Whole Bld Glucose 169 H 08/12/21 17:33: POC Whole Bld Glucose 94 08/12/21 11:16: POC Whole Bld Glucose 87 08/12/21 08:00: Sodium 136, Potassium 3.7, Chloride 105, Carbon Dioxide 27, Anion Gap 4.0 L, BUN 22 H, Creatinine 0.6, Estimated GFR (MDRD) 100, Glucose 101 H, Calcium 8.2 L 08/12/21 06:25: WBC 25.4 H, RBC 3.56 L, Hgb 11.1 L, Hct 33.6 L, MCV 94.4, MCH 31.2 H, MCHC 33.0, RDW 13.4, Plt Count 345, MPV 9.2, Neut # (Auto) Not Reportable, Lymph # (Auto) Not Reportable, [place] # (Auto) Not Reportable, Eos # (Auto) Not Reportable, Baso # (Auto) Not Reportable, Absolute Nucleated RBC Not Reportable, Total Counted 100, Band Neuts % (Manual) 13 H, Abnorm Lymph % (Manual) 0, Metamyelocytes % 1 H, Myelocytes % 1 H, Nucleated RBC % Not Reportable, Neutrophils # (Manual) 23.6 H, Lymphocytes # (Manual) 0.5 L, Monocytes # (Manual) 0.8, Eosinophils # (Manual) 0.0, Basophils # (Manual) 0.0, Differential Comment MANUAL DIFFERENTIAL, RBC Morph Micro Appear 1+ ANISOCYTOSIS 08/12/21 06:11: POC Whole Bld Glucose 96 08/12/21 00:15: POC Whole Bld Glucose 109 H 08/11/21 17:59: POC Whole Bld Glucose 103 H 08/11/21 11:03: POC Whole Bld Glucose 112 H 08/11/21 07:36: Sodium 139, Potassium 3.7, Chloride 108, Carbon Dioxide 24, Ani on Gap 7.0, BUN 25 H, Creatinine 0.6, Estimated GFR (MDRD) 100, Glucose 122 H, Calcium 8.3 L 08/11/21 06:50: Sodium 122 L, Potassium 3.5, Chloride 92 L, Carbon Dioxide 23, Anion Gap 7.0, BUN 8, Creatinine 0.4, Estimated GFR (MDRD) 159, Glucose 104 H, Calcium 8.0 L, Phosphorus 3.5, Magnesium 2.0, Total Bilirubin 0.6, AST 17, ALT 50, Alkaline Phosphatase 49, Total Protein 5.7 L, Albumin 2.9 L, Globulin 2.8, Albumin/Globulin Ratio 1.0, Prealbumin 15 L, Triglycerides 38 08/11/21 05:20: POC Whole Bld Glucose 115 H 08/11/21 04:55: WBC 30.3 H, RBC 3.67 L, Hgb 11.0 L, Hct 34.5 L, MCV 94.0, MCH 30.0, MCHC 31.9 L, RDW 13.5, Plt Count 323, MPV 9.4, Neut # (Auto) Not Reportable, Lymph # (Auto) Not Reportable, [place] # (Auto) Not Reportable, Eos # (Auto) Not Reportable, Baso # (Auto) Not Reportable, Absolute Nucleated RBC Not Reportable, Total Counted 100, Band Neuts % (Manual) 7, Abnorm Lymph % (Manual) 0, Myelocytes % 2 H, Nucleated RBC % Not Reportable, Neutrophils # (Manual) 27.3 H, Lymphocytes # (Manual) 1.2 L, Monocytes # (Manual) 1.2 H, Eosinophils # (Manual) 0.0, Basophils # (Manual) 0.0, Differential Comment MANUAL DIFFERENTIAL, WBC Morphology NORMAL APPEARANCE, Platelet Estimate NORMAL (130- 450,000), Platelet Morphology NORMAL APPEARANCE, RBC Morph Micro Appear NORMAL APPEARANCE 08/10/21 23:24: POC Whole Bld Glucose 155 H 08/10/21 18:17: POC Whole Bld Glucose 247 H 08/10/21 15:48: POC Whole Bld Glucose 275 H 08/10/21 11:43: POC Whole Bld Glucose 349 H 08/10/21 06:38: POC Whole Bld Glucose 310 H 08/10/21 06:25: Sodium 138, Potassium 4.0, Chloride 108, Carbon Dioxide 23, Anion Gap 7.0, BUN 24 H, Creatinine 0.8, Estimated GFR (MDRD) 72 L, Glucose 345 H, Calcium 8.4 L 08/10/21 04:15: Estimat Average Glucose 114 H, Hemoglobin A1c % 5.6 08/10/21 04:15: WBC 33.5 H, RBC 4.60, Hgb 13.8, Hct 43.5, MCV 94.6, MCH 30.0, MCHC 31.7 L, RDW 13.5, Plt Count 423, MPV 9.5, Neut # (Auto) Not Reportable, Lymph # (Auto) Not Reportable, [place] # (Auto) Not Reportable, Eos # (Auto) Not Reportable, Baso # (Auto) Not Reportable, Absolute Nucleated RBC Not Reportable, Total Counted 100, Band Neuts % (Manual) 19 H, Abnorm Lymph % (Manual) 0, Metamyelocytes % 1 H, Nucleated RBC % Not Reportable, Neutrophils # (Manual) 30.8 H, Lymphocytes # (Manual) 1.3 L, Monocytes # (Manual) 1.0, Eosinophils # (Manual) 0.0, Basophils # (Manual) 0.0, Differential Comment MANUAL DIFFEREN TIAL, WBC Morphology NORMAL APPEARANCE, Platelet Estimate NORMAL (130-450,000), Platelet Morphology NORMAL APPEARANCE, RBC Morph Micro Appear NORMAL APPEARANCE 08/10/21 00:19: POC Whole Bld Glucose 241 H 08/09/21 12:17: POC Whole Bld Glucose 120 H 08/09/21 09:10: VBG pH 7.424 H, VBG pCO2 29.5 L, VBG pO2 75.4 H, VBG HCO3 18.9 L , VBG Total CO2 19.8 L, VBG O2 Saturation 95.7 H, VBG Base Excess -4.2 L 08/09/21 09:10: Last Dose Date UNK, Last Dose Time UNK, Vancomycin Trough 15.4 08/09/21 08:00: Sodium 139, Potassium 4.2, Chloride 111, Carbon Dioxide 16 L, Anion Gap 12.0, BUN 18, Creatinine 0.7, Estimated GFR (MDRD) 83 L, Glucose 142 H , Calcium 9.3, Phosphorus 2.2 L, Magnesium 1.9, Total Bilirubin 1.0, AST 24, ALT 24, Alkaline Phosphatase 51, Total Protein 5.5 L, Albumin 2.1 L, Globulin 3.4, Albumin/Globulin Ratio 0.6 L, Prealbumin 3 L, Triglycerides 129 08/09/21 06:05: WBC 12.6 H, RBC 4.52, Hgb 13.7, Hct 41.7, MCV 92.3, MCH 30.3, MCHC 32.9, RDW 13.2, Plt Count 389, MPV 8.8, Neut # (Auto) Not Reportable, Lymph # (Auto) Not Reportable, [place] # (Auto) Not Reportable, Eos # (Auto) Not Reportable, Baso # (Auto) Not Reportable, Absolute Nucleated RBC Not Reportable, Total Counted 100, Band Neuts % (Manual) 33 H, Abnorm Lymph % (Manual) 0, Nu cleated RBC % Not Reportable, Neutrophils # (Manual) 9.2 H, Lymphocytes # ( Manual) 2.1, Monocytes # (Manual) 1.3 H, Eosinophils # (Manual) 0.0, Basophils # (Manual) 0.0, Differential Comment MANUAL DIFFERENTIAL, Platelet Estimate NORMAL (130-450,000), RBC Morph Micro Appear NORMAL APPEARANCE 08/09/21 06:04: POC Whole Bld Glucose 135 H 08/09/21 00:50: POC Whole Bld Glucose 121 H 08/08/21 20:22: POC Whole Bld Glucose 119 H 08/08/21 18:14: POC Whole Bld Glucose 107 H 08/08/21 14:59: Sodium 138, Potassium 3.6, Chloride 109, Carbon Dioxide 15 L, Anion Gap 14.0 H, BUN 21 H, Creatinine 0.7, Estimated GFR (MDRD) 83 L, Glucose 69 L, Calcium 9.0 08/08/21 14:59: Lactic Acid 1.0 08/08/21 05:01: Sodium 139, Potassium 3.3 L, Chloride 110, Carbon Dioxide 16 L, Anion Gap 13.0, BUN 22 H, Creatinine 0.6, Estimated GFR (MDRD) 100, Glucose 71, Calcium 9.0, Magnesium 1.9 08/08/21 05:01: WBC 11.7 H, RBC 4.24, Hgb 12.9, Hct 38.8, MCV 91.5, MCH 30.4, MCHC 33.2, RDW 13.0, Plt Count 391, MPV 8.7, Neut # (Auto) Not Reportable, Lymph # (Auto) Not Reportable, [place] # (Auto) Not Reportable, Eos # (Auto) Not Reportable, Baso # (Auto) Not Reportable, Absolute Nucleated RBC Not Reportable, Total Counted 100, Band Neuts % (Manual) 24 H, Abnorm Lymph % (Manual) 0, Metamyelocytes % 1 H, Myelocytes % 1 H, Nucleated RBC % Not Reportable, Neutrophils # (Manual) 9.4 H, Lymphocytes # (Manual) 1.3 L, Monocytes # (Manual) 0.8, Eosinophils # (Manual) 0.0, Basophils # (Manual) 0.0, Differential Comment MANUAL DIFFERENTIAL, Platelet Estimate NORMAL (130-450,000), RBC Morph Micro Appear NORMAL APPEARANCE 08/07/21 05:08: Magnesium 2.1 08/07/21 05:08: Sodium 137, Potassium 3.1 L, Chloride 106, Carbon Dioxide 20 L, Anion Gap 11.0, BUN 23 H, Creatinine 0.6, Estimated GFR (MDRD) 100, Glucose 64 L , Calcium 9.1 08/07/21 05:08: WBC 9.4, RBC 4.41, Hgb 13.4, Hct 39.4, MCV 89.3, MCH 30.4, MCHC 34.0, RDW 12.5, Plt Count 376, MPV 9.2, Neut # (Auto) Not Reportable, Lymph # (Auto) Not Reportable, [place] # (Auto) Not Reportable, Eos # (Auto) Not Reportable, Baso # (Auto) Not Reportable, Absolute Nucleated RBC Not Reportable, Total Counted 100, Band Neuts % (Manual) 18 H, Abnorm Lymph % (Manual) 0, Nucleated RBC % Not Reportable, Neutrophils # (Manual) 8.6 H, Lymphocytes # (Manual) 0.8 L, Monocytes # (Manual) 0.1, Eosinophils # (Manual) 0.0, Basophils # (Manual) 0.0, Differential Comment MANUAL DIFFERENTIAL, Platelet Estimate NORMAL (130-450,000), RBC Morph Micro Appear NORMAL APPEARANCE 08/06/21 08:23: Lactic Acid 2.2 08/06/21 04:50: TSH 1.65 08/06/21 04:50: Lactic Acid 2.7 H 08/06/21 04:50: Sodium 137, Potassium 3.2 L, Chloride 104, Carbon Dioxide 22, Anion Gap 11.0, BUN 31 H, Creatinine 1.0, Estimated GFR (MDRD) 55 L, Glucose 96, Calcium 9.0, Magnesium 1.6 L 08/06/21 04:50: WBC 7.3, RBC 4.42, Hgb 13.6, Hct 39.7, MCV 89.8, MCH 30.8, MCHC 34.3, RDW 12.1, Plt Count 370, MPV 9.0, Neut # (Auto) Not Reportable, Lymph # (Auto) Not Reportable, [place] # (Auto) Not Reportable, Eos # (Auto) Not Reportable, Baso # (Auto) Not Reportable, Absolute Nucleated RBC Not Reportable, Total Counted 100, Band Neuts % (Manual) 14 H, Abnorm Lymph % (Manual) 0, Nucleated RBC % Not Reportable, Neutrophils # (Manual) 6.1, Lymphocytes # (Manual) 0.8 L, Monocytes # (Manual) 0.4, Eosinophils # (Manual) 0.0, Basophils # (Manual) 0.0, Differential Comment MANUAL DIFFERENTIAL, WBC Morphology NORMAL APPEARANCE, Platelet Estimate NORMAL (130-450,000), Platelet Morphology NORMAL APPEARANCE, RBC Morph Micro Appear NORMAL APPEARANCE 08/06/21 01:52: Lactic Acid 3.0 H* 08/05/21 23:25: Lactic Acid 3.7 H* 08/05/21 23:25: Troponin I High Sens 4.4 08/05/21 20:50: Lactic Acid 3.7 H* 08/05/21 20:50: Troponin I High Sens 4.9 08/05/21 18:21: Sodium 136, Potassium 3.1 L, Chloride 101, Carbon Dioxide 23, Anion Gap 12.0, BUN 31 H, Creatinine 1.5 H, Estimated GFR (MDRD) 35 L, Glucose 124 H, Calcium 9.0 08/05/21 04:35: Sodium 135, Potassium 2.5 L*, Chloride 98 L, Carbon Dioxide 22, Anion Gap 15.0 H, BUN 21 H, Creatinine 1.1 H, Estimated GFR (MDRD) 50 L, Glucose 185 H, Calcium 9.3 08/05/21 04:35: WBC 12.7 H, RBC 5.23, Hgb 15.7, Hct 47.3 H, MCV 90.4, MCH 30.0, MCHC 33.2, RDW 12.1, Plt Count 464 H, MPV 9.0, Neut # (Auto) Not Reportable, Lymph # (Auto) Not Reportable, Roane # (Auto) Not Reportable, Eos # (Auto) Not Reportable, Baso # (Auto) Not Reportable, Absolute Nucleated RBC Not Reportable, Total Counted 100, Band Neuts % (Manual) 27 H, Abnorm Lymph % (Manual) 0, Metamyelocytes % 6 H, Myelocytes % 3 H, Nucleated RBC % Not Reportable, Neutrophils # (Manual) 10.7 H, Lymphocytes # (Manual) 0.8 L, Monocytes # (Manual) 0.1, Eosinophils # (Manual) 0.0, Basophils # (Manual) 0.0, Differential Comment MANUAL DIFFERENTIAL, WBC Morphology NORMAL APPEARANCE, Platelet Estimate INCREASED (>450,000), Platelet Morphology NORMAL APPEARANCE, RBC Morph Micro Appear NORMAL APPEARANCE 08/04/21 22:14: POC Whole Bld Glucose 210 H 08/04/21 11:10: Sodium 137, Potassium 3.3 L, Chloride 95 L, Carbon Dioxide 28, Anion Gap 14.0 H, BUN 11, Creatinine 0.7, Estimated GFR (MDRD) 83 L, Glucose 175 H, Calcium 9.9, Total Bilirubin 1.0, AST 24, ALT 29, Alkaline Phosphatase 105, Total Protein 7.1, Albumin 3.5, Globulin 3.6, Albumin/Globulin Ratio 1.0, Lipase 18 L 08/04/21 11:10: WBC 10.2, RBC 4.95, Hgb 15.3, Hct 45.2, MCV 91.3, MCH 30.9, MCHC 33.8, RDW 11.7 L, Plt Count 470 H, MPV 8.5, Neut # (Auto) Not Reportable, Lymph # (Auto) Not Reportable, Roane # (Auto) Not Reportable, Eos # (Auto) Not Reportable, Baso # (Auto) Not Reportable, Absolute Nucleated RBC Not Reportable, Total Counted 100, Band Neuts % (Manual) 3, Abnorm Lymph % (Manual) 0, Nucleated RBC % Not Reportable, Neutrophils # (Manual) 9.0 H, Lymphocytes # (Manual) 0.8 L , Monocytes # (Manual) 0.4, Eosinophils # (Manual) 0.0, Basophils # (Manual) 0.0, Differential Comment MANUAL DIFFERENTIAL, WBC Morphology 2+ TOXIC GRANULATION, Platelet Estimate NORMAL (130-450,000), RBC Morph Micro Appear NORMAL APPEARANCE Lab results reviewed: Yes Fish Bones: 08/24/21 12:50 08/25/21 13:15 Home Medications and Allergies Home Medications: Ambulatory Orders polyethylene glycoL 3350 [Miralax] 17 gm PO DAILY 08/04/21 Active Medications Acetaminophen (Acetaminophen 325 Mg Tablet) 650 mg PO Q4HR PRN PRN Reason: PAIN Last Admin: 08/26/21 04:55 Dose: 650 mg Albuterol (Albuterol Neb 2.5 Mg/3 Ml) 2.5 mg INH RTQ4H PRN PRN Reason: Wheezing Last Admin: 08/26/21 04:23 Dose: 2.5 mg Albuterol (Albuterol Neb 2.5 Mg/3 Ml) 2.5 mg INH TID INGA Last Admin: 08/26/21 04:23 Dose: Not Given Budesonide (Budesonide 0.5 Mg/2 Ml Neb) 0.5 mg INH RTBID INGA Last Admin: 08/26/21 07:06 Dose: 0.5 mg Clotrimazole (Clotrimazole 10 Mg Lozenge) 10 mg MM 5XD [facility] Stop: 08/31/21 21:59 Last Admin: 08/26/21 06:41 Dose: 10 mg Formoterol Fumarate (Formoterol Fumarate Neb 20 Mcg/2 Ml) 20 mcg INH RTBID INGA Last Admin: 08/26/21 07:07 Dose: 20 mcg Furosemide (Furosemide 40 Mg/4 Ml Vial) 40 mg IVP 0600,1200,1800 [facility] Last Admin: 08/26/21 06:34 Dose: 40 mg Heparin Sodium (Beef Lung) (Heparin Flush 50 Units/5 Ml Syringe) 30 - 50 unit IVP PRN PRN PRN Reason: Port Protocol (<24 hours) Last Admin: 08/25/21 16:31 Dose: 150 unit Cefepime HCl 2 gm/ Sodium (Chloride) 100 mls @ 200 mls/hr IV BID [facility] Last Infusion: 08/25/21 21:35 Dose: Infused Metronidazole (Flagyl 500 Mg/100 Ml) 500 mg in 100 mls @ 100 mls/hr IV Q8H [facility] Last Infusion: 08/26/21 01:47 Dose: Infused Vancomycin HCl 1 gm/Vancomycin HCl 500 mg/ Sodium Chloride 500 mls @ 250 mls/hr IV Q12H [facility] Last Infusion: 08/26/21 03:59 Dose: Infused Potassium Chloride/Sodium Chloride (Normal Saline 0.9% W/20 Meq Kcl) 1,000 mls @ 83.333 mls/hr IV .Q12H [facility] Last Admin: 08/26/21 06:33 Dose: 83.33 mls/hr Metoclopramide HCl (Metoclopramide 10 Mg/2 Ml Vial) 5 mg IVP Q6HR PRN PRN Reason: Nausea / Vomiting Last Admin: 08/22/21 17:26 Dose: 5 mg Metoprolol Tartrate (Metoprolol Tartrate 25 Mg Tablet) 25 mg PO BID [facility] Last Admin: 08/25/21 20:41 Dose: 25 mg Mineral Oil (Min Oil/Dimethicon/Coconut Oil 92 Gm Tube) 1 applic TOP PRN PRN PRN Reason: Skin Care Last Admin: 08/25/21 20:41 Dose: 1 applic Oxycodone HCl (Oxycodone 5 Mg Tablet) 5 mg PO Q4HR PRN PRN Reason: PAIN Last Admin: 08/25/21 20:40 Dose: 5 mg Pantoprazole Sodium (Pantoprazole 40 Mg Tablet) 40 mg PO QDAC [facility] Last Admin: 08/26/21 06:34 Dose: 40 mg Polyethylene Glycol (Polyethylene Glycol 3350 17 Gm Packet) 17 gm PO BID [facility] Last Admin: 08/25/21 20:41 Dose: Not Given Sodium Chloride (Sodium Chloride Flush 0.9% 10 Ml Syringe) 10 ml IVP 0100,0900,1700 [facility] Last Admin: 08/26/21 00:47 Dose: 10 ml Sodium Chloride (Sodium Chloride Flush 0.9% 10 Ml Syringe) 10 ml IVP PRN PRN PRN Reason: NEEDED PER PROVIDER ORDERS Last Admin: 08/25/21 20:43 Dose: 10 ml Albuterol Sulf [Ventolin Hfa Inhaler] 2 puffs INH Q4H PRN 06/12/16 Aspirin 81 mg PO DAILY 06/12/16 lisinopriL [Lisinopril] 20 mg PO DAILY 06/12/16 polyethylene glycoL 3350 [Miralax] 17 gm PO DAILY 08/04/21 Allergies/Adverse Reactions: Allergies Allergy/AdvReac Type Severity Reaction Status Date / Time egg Allergy Severe Anaphylaxis Verified 08/04/21 10:57 Anes History & Medical History - Anesthetic History Anesthesia Complications: reports: No previous complications Family history of Anesthesia Complications: Denies Family history of Malignant Hyperthermia: Denies - Medical History Cardiovascular: reports: Hypertension, High cholesterol, Atrial fibrillation Pulmonary: reports: Asthma, Pneumonia Gastrointestinal: reports: Hiatal hernia, Colon polyps, Chronic constipation, Other (Had right inguinal hernia for a while, had surg Jun 2021 when it was inc arcerated.) Urinary: reports: None, Other (recent UTI) Neuro: reports: None Musculoskeletal: reports: Rheumatoid arthritis, Osteopenia, Fatigue Endocrine/Autoimmune: reports: Other Blood Disorders: reports: Anemia Skin: reports: Eczema Smoking Status: Never smoker Other Past Medical History: rheumatoid arthritis wihout RA factor (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
[2021-08-26] MEDS ORDERED: MIDAZOLAM 2 MG/2 ML VIAL ONE (08:23)
[2021-08-26] MEDS ORDERED: LIDOCAINE-MPF 2% 5 ML VIAL ONE (08:23)
[2021-08-26] MEDS ORDERED: ETOMIDATE 40 MG/20 ML VIAL IVP ONE (08:24)
[2021-08-26 08:25] LABS: CALCIUM 8.1 mg/dL (8.5-10.3); CREATININE 0.4 mg/dL (0.4-1.0)
[2021-08-26] MEDS ORDERED: fentaNYL 100 MCG/2 ML VIAL ONE (08:29)
[2021-08-26 08:33] LABS: INR 1.9 (0.8-1.2)
[2021-08-26] MEDS ORDERED: ONDANSETRON 4 MG/2 ML VIAL ONE (09:33)
[2021-08-26] MEDS ORDERED: DEXAMETHASONE 4 MG/ML VIAL ONE (09:33)
[2021-08-26] MEDS ORDERED: PHENYLEPHRINE 10 MG/ML VIAL ONE (09:36)
[2021-08-26] MEDS ORDERED: LIDOCAINE 1% 50 ML MDV SUBQ ONE (09:38)
[2021-08-26] MEDS ORDERED: BUPIVACAINE 0.25% PF 30 ML VIAL SUBQ ONE (09:39)
[2021-08-26] MEDS ORDERED: BUPIVACAINE 0.25% PF 30 ML VIAL ONE (09:42)
[2021-08-26] MEDS ORDERED: LIDOCAINE-MPF 1% 30 ML VIAL ONE (09:43)
--- NOTE | 2021-08-26 10:08 | OPERATIVE REPORT ---
Operative Report - General Admit Date: 08/04/21 Procedure Date: 08/26/21 Planned Procedure: Abdominal wound debridement and closure with drain removal Pre-Op Diagnosis: Open abdominal wound following intra-abdominal catastrophe Procedure Performed: Debridement and closure of midline abdominal wound with retention sutures and drain removal Post Op Diagnosis: Same - Procedure Note Primary Surgeon: Cece Anesthesia Provider: MARCIA Godoy Anesthesia Technique: General LMA Pathology: None Estimated Blood Loss (mL): 5 Findings: Granulating abdominal wound Gross purulence from the inferior drain tract Complications: None apparent - Other Other Information/Narrative: After obtaining informed consent, the patient is brought to the operating room and placed in the supine position on the operating table. Following successful induction of general anesthesia, appropriate padding of all bony prominences, and placement appropriate monitors, the midline incision and the abdomen were prepped and draped in the standard surgical fashion. A timeout was held per scope protocol. All elements of the surgical safety checklist were followed before, during, and after the procedure. The midline wound was examined and the central portion containing a minimal degree of fibrinous exudate was debrided sharply. The edges of the wound were then approximated using vertical mattress retention sutures. Trimmed portions of a 14 Palestinian coud catheter segment were used as skin pledgets. Once the wound was grossly pulled together, several horizontal mattress sutures were applied over the surface to get the skin edges slightly closer. The intervening spaces were then packed gently with quarter inch Nu Gauze dipped in Betadine solution.The existing drains were removed without difficulty. The more inferior drain was noted to have significant purulent exudate around the exit site as well as in the bulb. Although the output has been less than 5 mL/day. The dr zelalemn was removed, the opening irrigated, and then packed with quarter inch iodine soaked Nu Gauze as well. A dry dressing was applied. All sponge, needle, and instrument counts were correct at the conclusion of the case.The patient was allowed to wake from anesthesia without difficulty and taken to the postanesthesia care unit in good condition.
[2021-08-26] MEDS ORDERED: LACTATED RINGERS 500 ML IV ONE (10:09)
[2021-08-26] MEDS ORDERED: METOCLOPRAMIDE 10 MG/2 ML VIAL IVP PRN (10:34)
[2021-08-26] MEDS ORDERED: ATROPINE ABBOJECT 1 MG/10 ML SYRINGE IVP PRN (10:34)
[2021-08-26] MEDS ORDERED: MORPHINE 2 MG/ML CARPUJECT IVP PRN ×2 (10:34→11:59)
[2021-08-26] MEDS ORDERED: NALOXONE 0.4 MG/ML VIAL IVP PRN (10:34)
[2021-08-26] MEDS ORDERED: ONDANSETRON 4 MG/2 ML VIAL IVP PRN (10:34)
[2021-08-26] MEDS ORDERED: ePHEDrine 50 MG/ML VIAL IVP PRN (10:34)
[2021-08-26] MEDS ORDERED: fentaNYL 100 MCG/2 ML VIAL IVP PRN (10:34)
[2021-08-26] MEDS ORDERED: HYDROmorphone 0.5 MG/0.5 ML SYRINGE IVP PRN (10:34)
[2021-08-26] MEDS ORDERED: LACTATED RINGERS 1,000 ML IV SCH (11:00)
--- NOTE | 2021-08-26 11:16 | ANESTHESIA POST OP EVALUATION ---
Anesthesia Post Eval - Post Anesthesia Eval Vitals: Last Vital Signs Temp 36.5 C 08/26/21 11:05 Pulse 95 08/26/21 11:05 Resp 18 08/26/21 11:05 BP 117/71 08/26/21 11:05 Pulse Ox 95 08/26/21 11:05 CV Function Including HR & BP: Stable Pain Control: Satisfactory Nausea & Vomiting: Negative Mental Status: Baseline Respiratory Status: Airway Patent Hydration Status: Satisfactory Anesthesia Complications: None
[2021-08-26] MEDS: CEFEPIME 2 GM in SODIUM CHLORIDE 0.9% MINIBAG 100 ML IV SCH ×2 (11:18→21:03)
[2021-08-26] MEDS: polyethylene glycoL 3350 17 GM PACKET PO SCH ×2 (11:19→21:03)
[2021-08-26] MEDS: METOPROLOL TARTRATE 25 MG TABLET PO SCH ×2 (11:25→21:03)
[2021-08-26] MEDS: oxyCODONE 5 MG TABLET PO PRN ×2 (12:15→21:51)
--- NOTE | 2021-08-26 12:23 | PROVIDER PROGRESS NOTE ---
Progress Note August 26, 2021 12:19 PM She just came back from the OR. Had her lower, vertical, hypogastric incision closed. Significant discomfort and she is asking for IV morphine again. She is also letting us know that when it comes time for discharge, she is amenable to [facility] facility for rehab and would like to go to [facility]. Other than the abdominal pain no new complaints. Continues to be losing water weight. Today's weight is 89.5 kg. Her peak weight was 100 kg on August 12 and she has been slowly losing that water weight with aggressive diuresis. Dry weight from admission was 75 kg. Active Medications Acetaminophen (Acetaminophen 325 Mg Tablet) 650 mg PO Q4HR PRN PRN Reason: PAIN Last Admin: 08/26/21 12:15 Dose: 650 mg Albuterol (Albuterol Neb 2.5 Mg/3 Ml) 2.5 mg INH RTQ4H PRN PRN Reason: Wheezing Last Admin: 08/26/21 04:23 Dose: 2.5 mg Albuterol (Albuterol Neb 2.5 Mg/3 Ml) 2.5 mg INH TID [facility] Last Admin: 08/26/21 08:55 Dose: Not Given Budesonide (Budesonide 0.5 Mg/2 Ml Neb) 0.5 mg INH RTBID [facility] Last Admin: 08/26/21 07:06 Dose: 0.5 mg Clotrimazole (Clotrimazole 10 Mg Lozenge) 10 mg MM 5XD [facility] Stop: 08/31/21 21:59 Last Admin: 08/26/21 11:26 Dose: Not Given Formoterol Fumarate (Formoterol Fumarate Neb 20 Mcg/2 Ml) 20 mcg INH RTBID [facility] Last Admin: 08/26/21 07:07 Dose: 20 mcg Furosemide (Furosemide 40 Mg/4 Ml Vial) 40 mg IVP 0600,1200,1800 [facility] Last Admin: 08/26/21 06:34 Dose: 40 mg Heparin Sodium (Beef Lung) (Heparin Flush 50 Units/5 Ml Syringe) 30 - 50 unit IVP PRN PRN PRN Reason: Port Protocol (<24 hours) Last Admin: 08/25/21 16:31 Dose: 150 unit Cefepime HCl 2 gm/ Sodium (Chloride) 100 mls @ 200 mls/hr IV BID [facility] Last Admin: 08/26/21 11:18 Dose: Not Given Metronidazole (Flagyl 500 Mg/100 Ml) 500 mg in 100 mls @ 100 mls/hr IV Q8H [facility] Last Admin: 08/26/21 11:18 Dose: Not Given Vancomycin HCl 1 gm/Vancomycin HCl 500 mg/ Sodium Chloride 500 mls @ 250 mls/hr IV Q12H [facility] Last Infusion: 08/26/21 03:59 Dose: Infused Potassium Chloride/Sodium Chloride (Normal Saline 0.9% W/20 Meq Kcl) 1,000 mls @ 83.333 mls/hr IV .Q12H [facility] Last Infusion: 08/26/21 11:23 Dose: 83.333 mls/hr Metoclopramide HCl (Metoclopramide 10 Mg/2 Ml Vial) 5 mg IVP Q6HR PRN PRN Reason: Nausea / Vomiting Last Admin: 08/22/21 17:26 Dose: 5 mg Metoprolol Tartrate (Metoprolol Tartrate 25 Mg Tablet) 25 mg PO BID [facility] Last Admin: 08/26/21 11:25 Dose: Not Given Mineral Oil (Min Oil/Dimethicon/Coconut Oil 92 Gm Tube) 1 applic TOP PRN PRN PRN Reason: Skin Care Last Admin: 08/25/21 20:41 Dose: 1 applic Morphine Sulfate (Morphine 2 Mg/Ml Carpuject) 2 mg IVP Q2HR PRN PRN Reason: PAIN Oxycodone HCl (Oxycodone 5 Mg Tablet) 5 mg PO Q4HR PRN PRN Reason: PAIN Last Admin: 08/26/21 12:15 Dose: 5 mg Pantoprazole Sodium (Pantoprazole 40 Mg Tablet) 40 mg PO QDAC [facility] Last Admin: 08/26/21 06:34 Dose: 40 mg Polyethylene Glycol (Polyethylene Glycol 3350 17 Gm Packet) 17 gm PO BID [facility] Last Admin: 08/26/21 11:19 Dose: Not Given Potassium Chloride (Potassium Chloride 20 Meq Tablet) 40 meq PO BID [facility] Stop: 08/27/21 21:01 Sodium Chloride (Sodium Chloride Flush 0.9% 10 Ml Syringe) 10 ml IVP 0100,0900,1700 [facility] Last Admin: 08/26/21 08:00 Dose: 10 ml Sodium Chloride (Sodium Chloride Flush 0.9% 10 Ml Syringe) 10 ml IVP PRN PRN PRN Reason: NEEDED PER PROVIDER ORDERS Last Admin: 08/25/21 20:43 Dose: 10 ml Exam; Temperature is 36.4. Heart rate 104. Blood pressure 119/73. Respirations 20. 97% on 2 L. Moderately overweight female who is 5 foot 3 inches tall. This whole week was that of mild tachypnea at rest and almost a shallow panting. In the last 2 days that has resolved. Not present right now. Little bit of grunting because of pain. Lungs have diminished breath sounds at the bases and have faint crackles. Anticipate this atelectasis in a postoperative patient just got out of the OR. Tachycardic regular rate and rhythm with a hard knocking sound Abdomen with normal bowel sounds. Rating it up into the chest. Legs with 2+ edema that is gradually improving but still significant. The anasarca of her upper body has improved tremendously. Sodium 138, potassium 3. Chloride 101. White cell count 11.7, hemoglobin 8.9, hematocrit 28, platelet 462 Assessment/plan 1. Anasarca. By August 23 she was close to 43 L positive. Intake and output measurement has consistently showed positive status. But she has been losing quite a bit of water weight and anasarca has improved tremendously this week. She is on 3 times daily Lasix. She is walking in the hallways. Able to get all the way down the length and back as long as there is a wheelchair behind her to help her. She prefers to sleep and stay in her chair in the room. For the last 2 days she is finally let us elevate her legs up. Edema is gradually improving in her legs. We will monitor BUN/creatinine, potassium. Make sure she does not get behind. Will decrease Lasix to twice daily. 2. Wheezing with a history of asthma. Initially was quite short of breath and wheezing on a daily basis. When I met her this week there is no wheezing until yesterday. Initially had a fast panting respiration where she was chronically short of breath and was orthopneic and could not lay down due to her anasarca. I added long-acting bronchodilator and long-acting inhaled steroid to her regimen to see if that improved her lung status and it has. I also think that losing the water weight has helped as well. Continue nebulizers that are long-acting and short acting. At discharge would consider long-acting bronchodilators for home. 3. Perforated large bowel. Present on admission and did not get better with expectant management. Repeat CT August 09 showed worsening free air, and labs had worsening bandemia so she was taken to the operating room where she underwent an exploratory laparotomy with sigmoid colectomy and a Funk's pouch. Complications postoperatively included: Fluid overload, postoperative ileus, protein calorie malnutrition, profound anasarca, and fluid collections that are not yet abscesses.. She was started on TPN. A wound VAC was placed over the vertical hypogastric incision. Surgery has been continuing antibiotics. She has now had closure of the vertical hypogastric incision today. Wound VAC has been removed. The next step is to have CT-guided drainage of the fluid collection in her abdomen. Once that is done this patient may be, hopefully, r kermit for discharge by later this week. She is he is very weak and deconditioned, she will go to [facility] for [facility]. She has already asked that she be discharged to [facility] in [place] to be closer to her daughters. 4. Status post colostomy, postoperative day #17. Surgery done August 09. She is learning how to use her colostomy bag. For the last few days she has been draining it on her own. The colostomy nurse has been helping her the last few days. She is hoping to change it on her own today to be comfortable with the process by the time of discharge. Nutrition has been difficult in this patient since she had fears of having anything that had "eggs" and it because she feels she gets anaphylaxis with that. So the first few days of trying to get her EPO were very difficult. She is now eating oatmeal, yogurt, juices and doing well. 5. Hypokalemia. On 3 times daily Lasix. At first we were supplementing it with TPN but once TPN was off, were having to supplement daily. And using D5 with potassium, to give her more sugar, that was being used to treat hypoglycemia, we drove her sodium down to 133. She is now on normal saline with potassium in it. And getting potassium orally. Continue to check daily until discharge and supplement. 6. Hyperglycemia secondary to dextrose in her TPN. Once TPN was stopped, she became hypoglycemic due to inadequate p.o. intake of food. I then changed to D5 with 20 of potassium but that made her hyponatremic. She is now on normal saline with 20 potassium. Now that she is eating, hypoglycemia has resolved. 7. Central line clotted off August 24. She received 2 doses of alteplase and line is now functioning. 8. Severe sepsis resolved. 9. Atrial fibrillation with RVR. Brief episode of atrial fibrillation with RVR early on in the hospitalization but since then has been in sinus rhythm. CHADS2 score was 0. Did not need anticoagulation. Telemetry discontinued August 20.
[2021-08-26 12:36] LABS: VANCOMYCIN,TROUGH 29.2 ug/mL (10.0-20.0)
[2021-08-26] MEDS: POTASSIUM CHLORIDE 20 MEQ TABLET PO SCH ×2 (13:33→21:03)
--- NOTE | 2021-08-26 13:40 | PHARMACY PROGRESS NOTE ---
- Therapy Status Vancomycin regimen day #: 6 Therapy status: Trough supratherapeutic Basis for treatment: Empirical Trough goal: 10-15 - DONNIE Risk Risk level for Acute Kidney Injury: Moderate Acute Kidney Injury risk factors: Duration >7 days, Sepsis - Monitoring and Recommendation Clinical response to treatment: I&O Previous 24 hours 08/24/21 08/25/21 08/26/21 23:59 23:59 23:59 Intake Total 2665.279 5858.302 1767.781 Output Total 2115 1888 913 Balance 137.899 1018.302 854.781 Lab Results 08/26/21 08/25/21 08/24/21 07:59 13:15 12:50 BUN 11 11 12 Creatinine 0.4 0.5 0.6 Estimated GFR (MDRD) 159 123 100 08/23/21 08/22/21 08/21/21 07:38 05:21 06:48 BUN 13 14 16 Creatinine 0.7 0.5 0.4 Estimated GFR (MDRD) 83 L 123 159 08/20/21 08/19/21 08/18/21 05:55 05:25 06:35 BUN 16 16 16 Creatinine 0.5 0.5 0.4 Estimated GFR (MDRD) 123 123 159 08/17/21 08/16/21 08/15/21 10:53 06:20 05:15 BUN 16 16 16 Creatinine 0.4 0.4 0.4 Estimated GFR (MDRD) 159 159 159 08/14/21 08/13/21 08/12/21 06:00 06:00 08:00 BUN 15 18 22 H Creatinine 0.6 0.5 0.6 Estimated GFR (MDRD) 100 123 100 08/11/21 08/11/21 08/10/21 07:36 06:50 06:25 BUN 25 H 8 24 H Creatinine 0.6 0.4 0.8 Estimated GFR (MDRD) 100 159 72 L 08/09/21 08/08/21 08/08/21 08:00 14:59 05:01 BUN 18 21 H 22 H Creatinine 0.7 0.7 0.6 Estimated GFR (MDRD) 83 L 83 L 100 08/07/21 08/06/21 08/05/21 05:08 04:50 18:21 BUN 23 H 31 H 31 H Creatinine 0.6 1.0 1.5 H Estimated GFR (MDRD) 100 55 L 35 L 08/05/21 08/04/21 04:35 11:10 BUN 21 H 11 Creatinine 1.1 H 0.7 Estimated GFR (MDRD) 50 L 83 L Vancomycin Monitoring 08/26/21 08/23/21 08/22/21 12:04 09:22 13:14 Vancomycin Trough 29.2 H* 29.0 H* Random Vancomycin 11.0 08/19/21 08/16/21 08/09/21 11:00 10:15 09:10 Vancomycin Trough 21.3 H 11.6 15.4 Random Vancomycin Cultures 08/09/21 18:24 Peritoneal Fluid Anaerobic Culture - Final 08/09/21 18:24 Peritoneal Fluid Body Fluid Culture - Final Escherichia Coli 08/05/21 21:40 Blood Blood Culture - Final NO GROWTH AFTER 5 DAYS 08/05/21 20:50 Blood Blood Culture - Final NO GROWTH AFTER 5 DAYS Monitoring plan: Daily serum creatinine, Draw trough early Next trough due prior to maintenance dose #: 4 Next trough due (date/time): 08/28 at 0830 Areas for additional monitoring: IV to PO when appropriate Pharmacy recommendation: Decrease dose (Trough high at 29.2 today. I will hold a dose and restart late tonight at a reduced dose.)
[2021-08-26] MEDS: VANCOMYCIN INJ 1 GM in SODIUM CHLORIDE 0.9% 250 ML IV SCH (21:06)
[2021-08-27] MEDS: metroNIDAZOLE 500 MG/100 ML 500 MG/100 ML BAG IV SCH ×3 (01:25→17:05)
[2021-08-27] MEDS: SODIUM CHLORIDE FLUSH 0.9% 10 ML SYRINGE IVP SCH ×3 (01:26→17:12)
[2021-08-27] MEDS: oxyCODONE 5 MG TABLET PO PRN ×4 (02:07→21:00)
[2021-08-27] MEDS: ALBUTEROL NEB 2.5 MG/3 ML INH PRN (02:54)
[2021-08-27] MEDS: ACETAMINOPHEN 325 MG TABLET PO PRN ×3 (03:45→18:29)
[2021-08-27] MEDS: FORMOTEROL FUMARATE NEB 20 MCG/2 ML INH SCH ×2 (05:35→18:07)
[2021-08-27] MEDS: BUDESONIDE 0.5 MG/2 ML NEB INH SCH ×2 (05:35→18:07)
[2021-08-27] MEDS: PANTOPRAZOLE 40 MG TABLET PO SCH (05:42)
[2021-08-27] MEDS: FUROSEMIDE 40 MG/4 ML VIAL IVP SCH ×2 (05:42→13:31)
[2021-08-27] MEDS: CLOTRIMAZOLE 10 MG LOZENGE MM SCH ×5 (05:48→21:01)
[2021-08-27] MEDS: METOPROLOL TARTRATE 25 MG TABLET PO SCH ×2 (08:12→20:58)
[2021-08-27] MEDS: CEFEPIME 2 GM in SODIUM CHLORIDE 0.9% MINIBAG 100 ML IV SCH ×2 (08:12→21:01)
[2021-08-27] MEDS: POTASSIUM CHLORIDE 20 MEQ TABLET PO SCH (08:13)
[2021-08-27] MEDS: polyethylene glycoL 3350 17 GM PACKET PO SCH ×2 (08:13→20:58)
--- NOTE | 2021-08-27 08:17 | PROVIDER PROGRESS NOTE ---
Assessment/Plan - Problem List (1) Perforated abdominal viscus Assessment/Plan: General Surgery is primary team and rounding daily. Patient on Cefepime and Flagyl. IV hydration discontinued. Patient receiving Lasix for anasarca. Currently on TPN (2) Status post colostomy Assessment/Plan: post op day #18. Surgery done on 08/09/[address]. Patient is learning how to manage the colostomy bag. (3) Anasarca Assessment/Plan: Improving. This was due to aggressive IV hydration for severe sepsis. Septic state curr ently resolved. By 08/23/2021 patient was close to 43 L positive. IV hydration has been discontinued. On Lasix 40 mg IV twice daily. She has been ambulating the hallways. Continue to elevate legs while in bed. (4) Hypokalemia Assessment/Plan: Likely related to Lasix diuretic. Potassium 40 mEq p.o. 3 times daily ordered. Potassium this morning was 3.2. Magnesium 1.3. 20 mEq of potassium chloride IV administered. We will also administer magnesium sulfate 2 g IV now and repeat Magnesium sulphate 2g IV X1 at 9pm (5) Hyperglycemia Assessment/Plan: Mild. Will monitor for now - Current Meds Current Meds: Current Medications Generic Name Dose Route Start Last Admin Trade Name Freq PRN Reason Stop Dose Admin Acetaminophen 650 mg 08/04/21 14:01 08/27/21 03:45 Acetaminophen 325 Mg Tablet PO 650 mg Q4HR PRN Administration PAIN Albuterol 2.5 mg 08/04/21 17:26 08/27/21 02:54 Albuterol Neb 2.5 Mg/3 Ml INH 2.5 mg RTQ4H PRN Administration Wheezing Albuterol 2.5 mg 08/15/21 22:00 08/26/21 19:28 Albuterol Neb 2.5 Mg/3 Ml INH 2.5 mg TID INGA Administration Budesonide 0.5 mg 08/21/21 19:00 08/27/21 05:35 Budesonide 0.5 Mg/2 Ml Neb INH 0.5 mg RTBID INGA Administration Clotrimazole 10 mg 08/24/21 22:00 08/27/21 05:48 Clotrimazole 10 Mg Lozenge MM 08/31/21 21:59 10 mg 5XD INGA Administration Formoterol Fumarate 20 mcg 08/21/21 19:00 08/27/21 05:35 Formoterol Fumarate Neb 20 Mcg/2 Ml INH 20 mcg RTBID INGA Administration Furosemide 40 mg 08/27/21 06:00 08/27/21 05:42 Furosemide 40 Mg/4 Ml Vial IVP 40 mg 0600,1200 INGA Administration Heparin Sodium (Beef Lung) 30 - 50 unit 08/25/21 15:36 08/25/21 16:31 Heparin Flush 50 Units/5 Ml Syringe IVP 150 unit PRN PRN Administration Port Protocol (<24 hours) Cefepime HCl 2 gm/ Sodium 100 mls @ 200 mls/hr 08/07/21 09:00 08/26/21 21:35 Chloride IV Infused BID INGA Infusion Metronidazole 500 mg in 100 mls @ 100 mls/hr 08/07/21 15:00 08/27/21 02:42 Flagyl 500 Mg/100 Ml IV Infused Q8H INGA Infusion Potassium Chloride/Sodium Chloride 1,000 mls @ 83.333 mls/hr 08/25/21 14:00 08/26/21 21:04 Normal Saline 0.9% W/20 Meq Kcl IV 83.333 mls/hr .Q12H INGA Administration Vancomycin HCl 1 gm/ Sodium 250 mls @ 167 mls/hr 08/26/21 21:00 08/27/21 00:53 Chloride IV Infused BID INGA Infusion Metoclopramide HCl 5 mg 08/22/21 11:35 08/22/21 17:26 Metoclopramide 10 Mg/2 Ml Vial IVP 5 mg Q6HR PRN Administration Nausea / Vomiting Metoprolol Tartrate 25 mg 08/20/21 21:00 08/26/21 21:03 Metoprolol Tartrate 25 Mg Tablet PO 25 mg BID INGA Administration Mineral Oil 1 applic 08/07/21 17:17 08/25/21 20:41 Min Oil/Dimethicon/Coconut Oil 92 Gm Tube TOP 1 applic PRN PRN Administration Skin Care Oxycodone HCl 5 mg 08/19/21 11:04 08/27/21 02:07 Oxycodone 5 Mg Tablet PO 5 mg Q4HR PRN Administration PAIN Pantoprazole Sodium 40 mg 08/05/21 07:00 08/27/21 05:42 Pantoprazole 40 Mg Tablet PO 40 mg QDAC INGA Administration Polyethylene Glycol 17 gm 08/16/21 21:00 08/26/21 21:03 Polyethylene Glycol 3350 17 Gm Packet PO 17 gm BID INGA Administration Potassium Chloride 40 meq 08/26/21 09:00 08/26/21 21:03 Potassium Chloride 20 Meq Tablet PO 08/27/21 21:01 40 meq BID INGA Administration Sodium Chloride 10 ml 08/04/21 17:00 08/27/21 01:26 Sodium Chloride Flush 0.9% 10 Ml Syringe IVP 10 ml 0100,0900,1700 INGA Administration Sodium Chloride 10 ml 08/04/21 14:01 08/25/21 20:43 Sodium Chloride Flush 0.9% 10 Ml Syringe IVP 10 ml PRN PRN Administration NEEDED PER PROVIDER ORDERS - Lab Result Fish Bone Diagrams: 08/24/21 12:50 08/27/21 08:21 - Additional Planning My Orders: My Active Orders 08/27/21 08:12 MAGNESIUM [CHEM] Stat 08/27/21 09:00 Potassium Chloride/Water 10 mEq/100 mL q1h (Enter # of bags) Potassium Chlor 10 Meq/100 ml [Potassium Chloride] 10 meq in 100 ml IV Q1H Subjective - Subjective Patient Reports: Other (Resting comfortably in bed. Reported mild abdominal pain. Denies dyspnea. Was ambulating around the nursing floor the previous day. Had an accident with the ostomy bag today.) Objective Vital Signs: Vital Signs - 24 hr 08/26/21 08/26/21 08/26/21 10:09 10:15 10:20 Temperature 36.1 C L 36.4 C L 36.4 C L Heart Rate 100 100 100 Heart Rate [ Brachial] Heart Rate [ Monitoring electrodes] Heart Rate [ Radial] Respiratory 20 17 22 Rate Blood Pressure 103/62 108/67 112/72 Blood Pressure [Right Brachial artery] O2 Saturation 100 100 100 08/26/21 08/26/21 08/26/21 10:25 10:30 10:35 Temperature 36.3 C L 36.4 C L 36.2 C L Heart Rate 100 98 97 Heart Rate [ Brachial] Heart Rate [ Monitoring electrodes] Heart Rate [ Radial] Respiratory 21 20 20 Rate Blood Pressure 104/64 112/66 107/64 Blood Pressure [Right Brachial artery] O2 Saturation 90 L 93 94 08/26/21 08/26/21 08/26/21 10:52 11:05 11:30 Temperature 36.1 C L 36.5 C 36.4 C L Heart Rate Heart Rate [ Brachial] Heart Rate [ 98 95 95 Monitoring electrodes] Heart Rate [ Radial] Respiratory 18 18 20 Rate Blood Pressure Blood Pressure 122/74 117/71 116/69 [Right Brachial artery] O2 Saturation 94 95 97 08/26/21 08/26/21 08/26/21 12:00 13:15 13:21 Temperature 36.4 C L Heart Rate Heart Rate [ Brachial] Heart Rate [ 104 H Monitoring electrodes] Heart Rate [ Radial] Respiratory 20 Rate Blood Pressure Blood Pressure 119/73 [Right Brachial artery] O2 Saturation 97 97 93 08/26/21 08/26/21 08/26/21 13:56 14:00 16:00 Temperature 36.4 C L 36.4 C L Heart Rate 110 H Heart Rate [ 109 H 104 H Brachial] Heart Rate [ Monitoring electrodes] Heart Rate [ Radial] Respiratory 21 16 16 Rate Blood Pressure Blood Pressure 102/58 L 111/61 [Right Brachial artery] O2 Saturation 93 94 08/26/21 08/26/21 08/26/21 19:29 20:00 21:03 Temperature 36.3 C L Heart Rate 107 H Heart Rate [ 105 H Brachial] Heart Rate [ Monitoring electrodes] Heart Rate [ Radial] Respiratory 20 24 Rate Blood Pressure 112/69 Blood Pressure 114/67 [Right Brachial artery] O2 Saturation 95 08/26/21 08/26/21 08/27/21 21:17 23:40 02:54 Temperature 36.4 C L Heart Rate 96 100 Heart Rate [ Brachial] Heart Rate [ Monitoring electrodes] Heart Rate [ 89 Radial] Respiratory 20 18 20 Rate Blood Pressure Blood Pressure 112/72 [Right Brachial artery] O2 Saturation 94 08/27/21 08/27/21 05:35 07:38 Temperature 36.4 C L Heart Rate 90 Heart Rate [ 91 Brachial] Heart Rate [ Monitoring electrodes] Heart Rate [ Radial] Respiratory 20 18 Rate Blood Pressure Blood Pressure 114/64 [Right Brachial artery] O2 Saturation 93 Oxygen O2 Source Room air I&O (Last 24 Hrs): Intake and Output Totals x24h 08/25/21 08/26/21 08/27/21 23:59 23:59 23:59 Intake Total 5858.302 4175.289 1340 Output Total 1888 1113 650 Balance 3970.302 3062.289 690 Comments/Notes: general: Alert, awake, oriented x3. No acute distress. HEENT: Atraumatic, normocephalic, PERRLA, EOMI Neck: Supple, no JVD Neuro: Alert, oriented x3, no focal deficits Cardiovascular: Regular rate and rhythm, S1, S2, no murmurs. No edema Respiratory: CTABL, No respiratory distress. No wheezing, rhonchi, crackles. Abdomen: Normal bowel sounds, soft, nontender, nondistended, no splenomegaly or hepatomegaly. Surgical site appreciable. Dry. Ostomy bag in place. Extremities: No clubbing, No cyanosis, no edema. Skin: no rash, no decubitus ulcer. Dry and warm. - Results Results: Laboratory Results WBC 11.7 x10^3/uL (4.8-10.8) H 08/24/21 12:50 RBC 2.99 10^6/uL (4.20-5.40) L 08/24/21 12:50 Hgb 8.9 g/dL (12.0-16.0) L 08/24/21 12:50 Hct 28.0 % (37.0-47.0) L 08/24/21 12:50 MCV 93.6 fL (81.0-99.0) 08/24/21 12:50 MCH 29.8 pg (27.0-31.0) 08/24/21 12:50 MCHC 31.8 g/dL (32.0-36.0) L 08/24/21 12:50 RDW 13.9 % (12.0-15.0) 08/24/21 12:50 Plt Count 462 10^3/uL (130-450) H 08/24/21 12:50 MPV 8.4 fL (7.9-10.8) 08/24/21 12:50 Neut # (Auto) 10.1 10^3/uL (1.5-6.6) H 08/24/21 12:50 Lymph # (Auto) 0.7 10^3/uL (1.5-3.5) L 08/24/21 12:50 [place] # (Auto) 0.6 10^3/uL (0.0-1.0) 08/24/21 12:50 Eos # (Auto) 0.2 10^3/uL (0.0-0.7) 08/24/21 12:50 Baso # (Auto) 0.1 10^3/uL (0.0-0.1) 08/24/21 12:50 Absolute Nucleated RBC 0.00 x10^3/uL 08/24/21 12:50 Total Counted 100 08/19/21 05:25 Band Neuts % (Manual) 1 % (0-10) 08/19/21 05:25 Abnorm Lymph % (Manual) 0 % 08/19/21 05:25 Metamyelocytes % 1 % (-0) H 08/16/21 06:20 Myelocytes % 1 % (-0) H 08/16/21 06:20 Nucleated RBC % 0.0 /100WBC 08/24/21 12:50 Neutrophils # (Manual) 19.7 10^3/uL (1.5-6.6) H 08/19/21 05:25 Lymphocytes # (Manual) 0.8 10^3/uL (1.5-3.5) L 08/19/21 05:25 Monocytes # (Manual) 0.6 10^3/uL (0.0-1.0) 08/19/21 05:25 Eosinophils # (Manual) 0.0 10^3/uL (0-0.7) 08/19/21 05:25 Basophils # (Manual) 0.0 10^3/uL (0-0.1) 08/19/21 05:25 Differential Comment MANUAL DIFFERENTIAL 08/19/21 05:25 Manual Slide Review Indicated 08/21/21 06:48 WBC Morphology NORMAL APPEARANCE (NORMAL) 08/19/21 05:25 Platelet Estimate INCREASED (>450,000) (NORMAL) 08/21/21 06:48 Platelet Morphology NORMAL APPEARANCE (NORMAL) 08/21/21 06:48 RBC Morph Micro Appear 1+ HYPOCHROMASIA (NORMAL) 08/21/21 06:48 PT 21.0 secs (9.9-12.6) H 08/26/21 07:59 INR 1.9 (0.8-1.2) H 08/26/21 07:59 VBG pH 7.424 (7.31-7.41) H 08/09/21 09:10 VBG pCO2 29.5 mmHg (41-51) L 08/09/21 09:10 VBG pO2 75.4 mmHg (25-47) H 08/09/21 09:10 VBG HCO3 18.9 mmol/L (23-28) L 08/09/21 09:10 VBG Total CO2 19.8 mmol/L (24-29) L 08/09/21 09:10 VBG O2 Saturation 95.7 % (60-80) H 08/09/21 09:10 VBG Base Excess -4.2 mmol/L (-2 - +2) L 08/09/21 09:10 Sodium 138 mmol/L (135-145) 08/26/21 07:59 Potassium 3.0 mmol/L (3.5-5.0) L 08/26/21 07:59 Chloride 101 mmol/L (101-111) 08/26/21 07:59 Carbon Dioxide 29 mmol/L (21-32) 08/26/21 07:59 Anion Gap 8.0 (6-13) 08/26/21 07:59 BUN 11 mg/dL (6-20) 08/26/21 07:59 Creatinine 0.4 mg/dL (0.4-1.0) 08/26/21 07:59 Estimated GFR (MDRD) 159 (>89) 08/26/21 07:59 Glucose 80 mg/dL (70-100) 08/26/21 07:59 POC Whole Bld Glucose 73 mg/dL (70 - 100) 08/22/21 07:14 Estimat Average Glucose 114 mg/dL (70-100) H 08/10/21 04:15 Hemoglobin A1c % 5.6 % (4.27-6.07) 08/10/21 04:15 Lactic Acid 1.0 mmol/L (0.5-2.2) 08/08/21 14:59 Calcium 8.1 mg/dL (8.5-10.3) L 08/26/21 07:59 Phosphorus 2.4 mg/dL (2.5-4.6) L 08/16/21 06:20 Magnesium 1.8 mg/dL (1.7-2.8) 08/16/21 06:20 Total Bilirubin 0.3 mg/dL (0.2-1.0) 08/25/21 13:15 AST 21 IU/L (10-42) 08/25/21 13:15 ALT 14 IU/L (10-60) 08/25/21 13:15 Alkaline Phosphatase 91 IU/L (42-121) 08/25/21 13:15 Troponin I High Sens 4.4 ng/L (2.3-14.8) 08/05/21 23:25 Total Protein 5.2 g/dL (6.7-8.2) L 08/25/21 13:15 Albumin 1.8 g/dL (3.2-5.5) L 08/25/21 13:15 Globulin 3.4 g/dL (2.1-4.2) 08/25/21 13:15 Albumin/Globulin Ratio 0.5 (1.0-2.2) L 08/25/21 13:15 Prealbumin 8 mg/dL (18-45) L 08/16/21 06:20 Triglycerides 80 mg/dL (-149) 08/16/21 06:20 Lipase 18 U/L (22-51) L 08/04/21 11:10 TSH 1.65 uIU/mL (0.34-5.60) 08/06/21 04:50 Urine Color YELLOW 08/05/21 21:30 Urine Clarity CLEAR (CLEAR) 08/05/21 21:30 Urine pH 5.0 PH (5.0-7.5) 08/05/21 21:30 Ur Specific [place] >=1.030 (1.002-1.030) H 08/05/21 21:30 Urine Protein 30 mg/dL (NEGATIVE) H 08/05/21 21:30 Urine Glucose (UA) NEGATIVE mg/dL (NEGATIVE) 08/05/21 21:30 Urine Ketones TRACE mg/dL (NEGATIVE) 08/05/21 21:30 Urine Occult Blood NEGATIVE (NEGATIVE) 08/05/21 21:30 Urine Nitrite NEGATIVE (NEGATIVE) 08/05/21 21: Urine Bilirubin NEGATIVE (NEGATIVE) 08/05/21 21:30 Urine Urobilinogen 1 (NORMAL) E.U./dL (NORMAL) 08/05/21 21:30 Ur Leukocyte Esterase NEGATIVE (NEGATIVE) 08/05/21 21:30 Urine RBC None Seen /HPF (0-5) 08/05/21 21:30 Urine WBC 0-3 /HPF (0-5) 08/05/21 21:30 Ur Squamous Epith Cells FEW Squamous (<= Few) 08/05/21 21:30 Amorphous Sediment Few /LPF 08/05/21 21:30 Urine Bacteria Rare /HPF (None Seen) 08/05/21 21:30 Urine Culture Comments NOT INDICATED 08/05/21 21:30 Nasal Adenovirus (PCR) NOT DETECTED 08/04/21 13:20 Nasal B. parapertussis DNA (PCR) NOT DETECTED 08/04/21 13:20 Nasal Coronavir 229E PCR NOT DETECTED 08/04/21 13:20 Nasal Coronavir HKU1 PCR NOT DETECTED 08/04/21 13:20 Nasal Coronavir NL63 PCR NOT DETECTED 08/04/21 13:20 Nasal Coronavir OC43 PCR NOT DETECTED 08/04/21 13:20 Nasal Enterovir/Rhinovir PCR NOT DETECTED 08/04/21 13:20 Nasal Influenza B PCR NOT DETECTED 08/04/21 13:20 Nasal Influenza A PCR NOT DETECTED 08/04/21 13:20 Nasal Parainfluen 1 PCR NOT DETECTED 08/04/21 13:20 Nasal Parainfluen 2 PCR NOT DETECTED 08/04/21 13:20 Nasal Parainfluen 3 PCR NOT DETECTED 08/04/21 13:20 Nasal Parainfluen 4 PCR NOT DETECTED 08/04/21 13:20 Nasal RSV (PCR) NOT DETECTED 08/04/21 13:20 Nasal B.pertussis DNA PCR NOT DETECTED 08/04/21 13:20 Nasal C.pneumoniae (PCR) NOT DETECTED 08/04/21 13:20 Elliot Human Metapneumo PCR NOT DETECTED 08/04/21 13:20 Nasal M.pneumoniae (PCR) NOT DETECTED 08/04/21 13:20 Nasal SARS-CoV-2 (PCR) NOT DETECTED 08/04/21 13:20 Last Dose Date 08/26/21 08/26/21 12:04 Last Dose Time 35808/26/21 12:04 Vancomycin Trough 29.2 ug/mL (10.0-20.0) H* 08/26/21 12:04 Random Vancomycin 11.0 ug/mL 08/23/21 09:22 Blood Type O POSITIVE 08/22/21 09:25 Blood Type Recheck O POSITIVE 08/22/21 05:21 Sepsis Event Note (H) - Evaluation Current Stage of Sepsis: Resolved Possible source of Sepsis: positive: GI tract/intra-abdominal - Sepsis Criteria Sepsis Criteria: Recorded Heart Rate greater than 90 bpm, WBC count greater than 10% bands, WBC count greater than 12,000 or less than 4000, Metabolic: lactate > 2 mmol/L ABX Reporting Has patient been on IV antibiotics over the past 48 hours?: Yes
[2021-08-27 08:43] LABS: CALCIUM 8.1 mg/dL (8.5-10.3); CREATININE 0.6 mg/dL (0.4-1.0); POTASSIUM 3.2 mmol/L (3.5-5.0)
[2021-08-27] MEDS: POTASSIUM CHLOR 10 MEQ/100 ML 10 MEQ/100 ML BAG IV SCH ×3 (09:27→16:15)
[2021-08-27] MEDS: ALBUTEROL NEB 2.5 MG/3 ML INH SCH ×3 (09:34→21:28)
[2021-08-27] MEDS: VANCOMYCIN INJ 1 GM in SODIUM CHLORIDE 0.9% 250 ML IV SCH ×2 (10:51→21:02)
[2021-08-27] MEDS: MULTIVITAMIN W/MINERALS TABLET PO SCH (10:58)
[2021-08-27] MEDS ORDERED: POTASSIUM CHLORIDE 20 MEQ TABLET PO SCH (12:00)
[2021-08-27] MEDS ORDERED: MAGNESIUM SULFATE 2 GRAM 2 GM/50 ML BAG IV ONE ×2 (14:11→21:00)
--- NOTE | 2021-08-27 14:48 | PROVIDER PROGRESS NOTE ---
Subjective - Prog Note Date Prog Note Date: 08/27/21 - Subjective Pt reports feeling: Improved Subjective: tolerating diet less swelling Objective - Vital Signs/Intake & Output Vital Signs: Vital Signs x48h Temp Pulse Pulse Resp BP BP Pulse Ox 08/27/21 10:13 82 20 08/27/21 08:12 114/64 08/27/21 07:38 36.4 C L 91 18 114/64 93 Intake & Output: Intake & Output 08/24/21 08/25/21 08/26/21 08/27/21 23:59 23:59 23:59 23:59 Intake Total 2665.279 5858.302 4175.289 3191.107 Output Total 2115 1888 1113 1675 Balance 891.782 8269.302 3062.289 1516.107 - Objective General Appearance: positive: No acute distress, Alert Eyes Bilateral: positive: PERRL, EOMI, No scleral icterus Respiratory: positive: No respiratory distress Abdomen: positive: Non-tender, No distention, Other (pink stoma) Neurologic/Psychiatric: positive: Oriented x3 - Lab Results Fish Bones: 08/24/21 12:50 08/27/21 08:21 Other Labs: Lab Results x24hrs 08/27/21 08/27/21 Range/Units 08:24 08:21 Sodium 135 (135-145) mmol/L Potassium 3.2 L (3.5-5.0) mmol/L Chloride 100 L (101-111) mmol/L Carbon Dioxide 26 (21-32) mmol/L Anion Gap 9.0 (6-13) BUN 14 (6-20) mg/dL Creatinine 0.6 (0.4-1.0) mg/dL Estimated GFR (MDRD) 100 (>89) Glucose 147 H (70-100) mg/dL Calcium 8.1 L (8.5-10.3) mg/dL Magnesium 1.3 L (1.7-2.8) mg/dL Sepsis Event Note (H) - Evaluation Current Stage of Sepsis: Resolved Possible source of Sepsis: positive: GI tract/intra-abdominal - Sepsis Criteria Sepsis Criteria: Recorded Heart Rate greater than 90 bpm, WBC count greater than 10% bands, WBC count greater than 12,000 or less than 4000, Metabolic: lactate > 2 mmol/L Assessment/Plan - Problem List (1) Perforated abdominal viscus Impression: continued daily progress benign abdomen, tolerating diet, wbc down/ nearly normal d/c planning snf
[2021-08-28] MEDS: ACETAMINOPHEN 325 MG TABLET PO PRN ×4 (00:32→23:14)
[2021-08-28] MEDS: POTASSIUM CHLORIDE 20 MEQ TABLET PO SCH ×3 (00:33→15:00)
[2021-08-28] MEDS: SODIUM CHLORIDE FLUSH 0.9% 10 ML SYRINGE IVP SCH ×3 (00:39→18:40)
[2021-08-28] MEDS: metroNIDAZOLE 500 MG/100 ML 500 MG/100 ML BAG IV SCH ×3 (00:40→17:24)
[2021-08-28] MEDS: oxyCODONE 5 MG TABLET PO PRN ×5 (01:17→20:47)
[2021-08-28] MEDS: ALBUTEROL NEB 2.5 MG/3 ML INH SCH ×2 (04:55→13:58)
[2021-08-28] MEDS: PANTOPRAZOLE 40 MG TABLET PO SCH (05:36)
[2021-08-28] MEDS: CLOTRIMAZOLE 10 MG LOZENGE MM SCH ×5 (05:38→21:28)
[2021-08-28 05:59] LABS: BASOPHILS # (AUTO) 0.1 10^3/uL (0.0-0.1); BASOPHILS % (AUTO) 0.7 %; EOSINOPHILS # (AUTO) 0.4 10^3/uL (0.0-0.7); EOSINOPHILS % (AUTO) 4.8 %; HCT - HEMATOCRIT 28.3 % (37.0-47.0); HGB - HEMOGLOBIN 8.8 g/dL (12.0-16.0); LYMPHOCYTES # (AUTO) 0.8 10^3/uL (1.5-3.5); LYMPHOCYTES % (AUTO) 8.9 %; MEAN CORPUSCULAR HEMOGLOBIN 29.3 pg (27.0-31.0); MEAN CORPUSCULAR HGB CONC 31.1 g/dL (32.0-36.0); MEAN CORPUSCULAR VOLUME 94.3 fL (81.0-99.0); MEAN PLATELET VOLUME 8.2 fL (7.9-10.8); MONOCYTES # (AUTO) 0.6 10^3/uL (0.0-1.0); MONOCYTES % (AUTO) 6.2 %; NEUTROPHILS # (AUTO) 7.1 10^3/uL (1.5-6.6); NEUTROPHILS % (AUTO) 77.7 %; PLT - PLATELET COUNT 509 10^3/uL (130-450); RED CELL DISTRIBUTION WIDTH 14.1 % (12.0-15.0); WHITE BLOOD COUNT 9.2 x10^3/uL (4.8-10.8)
[2021-08-28 06:08] LABS: CREATININE 0.5 mg/dL (0.4-1.0); MAGNESIUM 1.9 mg/dL (1.7-2.8); POTASSIUM 3.7 mmol/L (3.5-5.0)
[2021-08-28] MEDS: FUROSEMIDE 40 MG/4 ML VIAL IVP SCH ×2 (06:52→13:07)
--- NOTE | 2021-08-28 07:38 | PROVIDER PROGRESS NOTE ---
Assessment/Plan - Problem List (1) Perforated abdominal viscus Assessment/Plan: General Surgery is primary team and rounding daily. Patient on Cefepime and Flagyl. IV hydration discontinued. Patient receiving Lasix for anasarca. Currently on TPN (2) Status post colostomy Assessment/Plan: post op day #19. Surgery done on 08/09/[address] Patient is learning how to manage the colostomy bag. (3) Anasarca Assessment/Plan: Improving. This was due to aggressive IV hydration for severe sepsis. Septic state curr ently resolved. By 08/23/2021 patient was close to 43 L positive. IV hydration has been discontinued. On Lasix 40 mg IV twice daily. She has been ambulating the hallways. Continue to elevate legs while in bed. (4) Hypokalemia Assessment/Plan: 08/28 Improved/resolved. Potassium this morning was 3.7. Magnesium was 1.9. Will administer Magnesium sulphate 2g IV X1 08/27 Likely related to Lasix diuretic. Potassium 40 mEq p.o. 3 times daily ordered. Potassium this morning was 3.2. Magnesium 1.3. 20 mEq of potassium chloride IV administered. We will also administer magnesium sulfate 2 g IV now and repeat Magnesium sulphate 2g IV X1 at 9pm (5) Hyperglycemia Assessment/Plan: Mild. Will continue to monitor for now. - Current Meds Current Meds: Current Medications Generic Name Dose Route Start Last Admin Trade Name Freq PRN Reason Stop Dose Admin Acetaminophen 650 mg 08/04/21 14:01 08/28/21 05:35 Acetaminophen 325 Mg Tablet PO 650 mg Q4HR PRN Administration PAIN Albuterol 2.5 mg 08/04/21 17:26 08/27/21 02:54 Albuterol Neb 2.5 Mg/3 Ml INH 2.5 mg RTQ4H PRN Administration Wheezing Albuterol 2.5 mg 08/15/21 22:00 08/28/21 04:55 Albuterol Neb 2.5 Mg/3 Ml INH 2.5 mg TID INGA Administration Budesonide 0.5 mg 08/21/21 19:00 08/27/21 18:07 Budesonide 0.5 Mg/2 Ml Neb INH 0.5 mg RTBID INGA Administration Clotrimazole 10 mg 08/24/21 22:00 08/28/21 05:38 Clotrimazole 10 Mg Lozenge MM 08/31/21 21:59 10 mg 5XD INGA Administration Formoterol Fumarate 20 mcg 08/21/21 19:00 08/27/21 18:07 Formoterol Fumarate Neb 20 Mcg/2 Ml INH 20 mcg RTBID INGA Administration Furosemide 40 mg 08/27/21 06:00 08/28/21 06:52 Furosemide 40 Mg/4 Ml Vial IVP 40 mg 0600,1200 INGA Administration Heparin Sodium (Beef Lung) 30 - 50 unit 08/25/21 15:36 08/28/21 05:49 Heparin Flush 50 Units/5 Ml Syringe IVP 50 unit PRN PRN Administration Port Protocol (<24 hours) Cefepime HCl 2 gm/ Sodium 100 mls @ 200 mls/hr 08/07/21 09:00 08/27/21 21:31 Chloride IV Infused BID INGA Infusion Metronidazole 500 mg in 100 mls @ 100 mls/hr 08/07/21 15:00 08/28/21 03:16 Flagyl 500 Mg/100 Ml IV Infused Q8H INGA Infusion Vancomycin HCl 1 gm/ Sodium 250 mls @ 167 mls/hr 08/26/21 21:00 08/27/21 23:39 Chloride IV Infused BID INGA Infusion Metoclopramide HCl 5 mg 08/22/21 11:35 08/22/21 17:26 Metoclopramide 10 Mg/2 Ml Vial IVP 5 mg Q6HR PRN Administration Nausea / Vomiting Metoprolol Tartrate 25 mg 08/20/21 21:00 08/27/21 20:58 Metoprolol Tartrate 25 Mg Tablet PO 25 mg BID INGA Administration Mineral Oil 1 applic 08/07/21 17:17 08/25/21 20:41 Min Oil/Dimethicon/Coconut Oil 92 Gm Tube TOP 1 applic PRN PRN Administration Skin Care Multivitamins/Minerals 1 tab 08/27/21 11:00 08/27/21 10:58 Multivitamin W/Minerals Tablet PO 1 tab DAILYWM INGA Administration Oxycodone HCl 5 mg 08/19/21 11:04 08/28/21 06:52 Oxycodone 5 Mg Tablet PO 5 mg Q4HR PRN Administration PAIN Pantoprazole Sodium 40 mg 08/05/21 07:00 08/28/21 05:36 Pantoprazole 40 Mg Tablet PO 40 mg QDAC INGA Administration Polyethylene Glycol 17 gm 08/16/21 21:00 08/27/21 20:58 Polyethylene Glycol 3350 17 Gm Packet PO 17 gm BID INGA Administration Potassium Chloride 40 meq 08/27/21 23:00 08/28/21 05:37 Potassium Chloride 20 Meq Tablet PO 08/28/21 14:01 40 meq TID INGA Administration Sodium Chloride 10 ml 08/04/21 17:00 08/28/21 00:39 Sodium Chloride Flush 0.9% 10 Ml Syringe IVP 10 ml 0100,0900,1700 INGA Administration Sodium Chloride 10 ml 08/04/21 14:01 08/25/21 20:43 Sodium Chloride Flush 0.9% 10 Ml Syringe IVP 10 ml PRN PRN Administration NEEDED PER PROVIDER ORDERS - Lab Result Fish Bone Diagrams: 08/28/21 05:50 08/28/21 05:50 - Additional Planning My Orders: My Active Orders 08/27/21 23:00 Potassium Chloride [K-Dur] 40 meq PO TID 08/29/21 05:00 BMP - BASIC METABOLIC PANEL [CHEM] DAILYLAB CBC - COMP BLD CT W/AUTO DIFF [HEME] DAILYLAB MAGNESIUM [CHEM] DAILYLAB 08/30/21 05:00 BMP - BASIC METABOLIC PANEL [CHEM] DAILYLAB CBC - COMP BLD CT W/AUTO DIFF [HEME] DAILYLAB MAGNESIUM [CHEM] DAILYLAB 08/31/21 05:00 BMP - BASIC METABOLIC PANEL [CHEM] DAILYLAB CBC - COMP BLD CT W/AUTO DIFF [HEME] DAILYLAB 09/01/21 05:00 BMP - BASIC METABOLIC PANEL [CHEM] DAILYLAB CBC - COMP BLD CT W/AUTO DIFF [HEME] DAILYLAB Subjective - Subjective Patient Reports: Other (She was resting comfortably in the bedside chair. Denied any significant complaints. However her nurse reported some purulent drainage from an opening on surgical site. Lower extremity edema appreciable.) Objective Vital Signs: Vital Signs - 24 hr 08/27/21 08/27/21 08/27/21 08:12 10:13 15:30 Temperature Heart Rate 82 Heart Rate [ 92 Brachial] Heart Rate [ Radial] Respiratory 20 18 Rate Blood Pressure 114/64 Blood Pressure 108/57 L [Right Brachial artery] O2 Saturation 96 08/27/21 08/27/21 08/28/21 18:10 20:58 00:44 Temperature 36.4 C L Heart Rate 76 Heart Rate [ Brachial] Heart Rate [ 92 Radial] Respiratory 18 18 Rate Blood Pressure 119/67 Blood Pressure 125/69 [Right Brachial artery] O2 Saturation 93 08/28/21 04:56 Temperature Heart Rate 90 Heart Rate [ Brachial] Heart Rate [ Radial] Respiratory 20 Rate Blood Pressure Blood Pressure [Right Brachial artery] O2 Saturation Oxygen O2 Source Room air I&O (Last 24 Hrs): Intake and Output Totals x24h 08/26/21 08/27/21 08/28/21 23:59 23:59 23:59 Intake Total 4175.289 4641.107 100 Output Total 1113 2125 Balance 3062.289 2516.107 100 Comments/Notes: general: Alert, awake, oriented x3. No acute distress. HEENT: Atraumatic, normocephalic, PERRLA, EOMI Neck: Supple, no JVD Neuro: Alert, oriented x3, no focal deficits Cardiovascular: Regular rate and rhythm, S1, S2, no murmurs. >3+ edema Respiratory: CTABL, No respiratory distress. No wheezing, rhonchi, crackles. Abdomen: Normal bowel sounds, soft, nontender, nondistended, no splenomegaly or hepatomegaly. Surgical site dressing in place. Dry. Ostomy bag in place. Extremities: No clubbing, No cyanosis, >3+ edema. Skin: no rash, no decubitus ulcer. Dry and warm. - Results Results: Laboratory Results WBC 9.2 x10^3/uL (4.8-10.8) 08/28/21 05:50 RBC 3.00 10^6/uL (4.20-5.40) L 08/28/21 05:50 Hgb 8.8 g/dL (12.0-16.0) L 08/28/21 05:50 Hct 28.3 % (37.0-47.0) L 08/28/21 05:50 MCV 94.3 fL (81.0-99.0) 08/28/21 05:50 MCH 29.3 pg (27.0-31.0) 08/28/21 05:50 MCHC 31.1 g/dL (32.0-36.0) L 08/28/21 05:50 RDW 14.1 % (12.0-15.0) 08/28/21 05:50 Plt Count 509 10^3/uL (130-450) H 08/28/21 05:50 MPV 8.2 fL (7.9-10.8) 08/28/21 05:50 Neut # (Auto) 7.1 10^3/uL (1.5-6.6) H 08/28/21 05:50 Lymph # (Auto) 0.8 10^3/uL (1.5-3.5) L 08/28/21 05:50 [place] # (Auto) 0.6 10^3/uL (0.0-1.0) 08/28/21 05:50 Eos # (Auto) 0.4 10^3/uL (0.0-0.7) 08/28/21 05:50 Baso # (Auto) 0.1 10^3/uL (0.0-0.1) 08/28/21 05:50 Absolute Nucleated RBC 0.00 x10^3/uL 08/28/21 05:50 Total Counted 100 08/19/21 05:25 Band Neuts % (Manual) 1 % (0-10) 08/19/21 05:25 Abnorm Lymph % (Manual) 0 % 08/19/21 05:25 Metamyelocytes % 1 % (-0) H 08/16/21 06:20 Myelocytes % 1 % (-0) H 08/16/21 06:20 Nucleated RBC % 0.0 /100WBC 08/28/21 05:50 Neutrophils # (Manual) 19.7 10^3/uL (1.5-6.6) H 08/19/21 05:25 Lymphocytes # (Manual) 0.8 10^3/uL (1.5-3.5) L 08/19/21 05:25 Monocytes # (Manual) 0.6 10^3/uL (0.0-1.0) 08/19/21 05:25 Eosinophils # (Manual) 0.0 10^3/uL (0-0.7) 08/19/21 05:25 Basophils # (Manual) 0.0 10^3/uL (0-0.1) 08/19/21 05:25 Differential Comment MANUAL DIFFERENTIAL 08/19/21 05:25 Manual Slide Review Indicated 08/21/21 06:48 WBC Morphology NORMAL APPEARANCE (NORMAL) 08/19/21 05:25 Platelet Estimate INCREASED (>450,000) (NORMAL) 08/21/21 06:48 Platelet Morphology NORMAL APPEARANCE (NORMAL) 08/21/21 06:48 RBC Morph Micro Appear 1+ HYPOCHROMASIA (NORMAL) 08/21/21 06:48 PT 21.0 secs (9.9-12.6) H 08/26/21 07:59 INR 1.9 (0.8-1.2) H 08/26/21 07:59 VBG pH 7.424 (7.31-7.41) H 08/09/21 09:10 VBG pCO2 29.5 mmHg (41-51) L 08/09/21 09:10 VBG pO2 75.4 mmHg (25-47) H 08/09/21 09:10 VBG HCO3 18.9 mmol/L (23-28) L 08/09/21 09:10 VBG Total CO2 19.8 mmol/L (24-29) L 08/09/21 09:10 VBG O2 Saturation 95.7 % (60-80) H 08/09/21 09:10 VBG Base Excess -4.2 mmol/L (-2 - +2) L 08/09/21 09:10 Sodium 137 mmol/L (135-145) 08/28/21 05:50 Potassium 3.7 mmol/L (3.5-5.0) 08/28/21 05:50 Chloride 102 mmol/L (101-111) 08/28/21 05:50 Carbon Dioxide 28 mmol/L (21-32) 08/28/21 05:50 Anion Gap 7.0 (6-13) 08/28/21 05:50 BUN 12 mg/dL (6-20) 08/28/21 05:50 Creatinine 0.5 mg/dL (0.4-1.0) 08/28/21 05:50 Estimated GFR (MDRD) 123 (>89) 08/28/21 05:50 Glucose 138 mg/dL (70-100) H 08/28/21 05:50 POC Whole Bld Glucose 73 mg/dL (70 - 100) 08/22/21 07:14 Estimat Average Glucose 114 mg/dL (70-100) H 08/10/21 04:15 Hemoglobin A1c % 5.6 % (4.27-6.07) 08/10/21 04:15 Lactic Acid 1.0 mmol/L (0.5-2.2) 08/08/21 14:59 Calcium 8.0 mg/dL (8.5-10.3) L 08/28/21 05:50 Phosphorus 2.4 mg/dL (2.5-4.6) L 08/16/21 06:20 Magnesium 1.9 mg/dL (1.7-2.8) 08/28/21 05:50 Total Bilirubin 0.3 mg/dL (0.2-1.0) 08/25/21 13:15 AST 21 IU/L (10-42) 08/25/21 13:15 ALT 14 IU/L (10-60) 08/25/21 13:15 Alkaline Phosphatase 91 IU/L (42-121) 08/25/21 13:15 Troponin I High Sens 4.4 ng/L (2.3-14.8) 08/05/21 23:25 Total Protein 5.2 g/dL (6.7-8.2) L 08/25/21 13:15 Albumin 1.8 g/dL (3.2-5.5) L 08/25/21 13:15 Globulin 3.4 g/dL (2.1-4.2) 08/25/21 13:15 Albumin/Globulin Ratio 0.5 (1.0-2.2) L 08/25/21 13:15 Prealbumin 8 mg/dL (18-45) L 08/16/21 06:20 Triglycerides 80 mg/dL (-149) 08/16/21 06:20 Lipase 18 U/L (22-51) L 08/04/21 11:10 TSH 1.65 uIU/mL (0.34-5.60) 08/06/21 04:50 Urine Color YELLOW 08/05/21 21:30 Urine Clarity CLEAR (CLEAR) 08/05/21 21:30 Urine pH 5.0 PH (5.0-7.5) 08/05/21 21:30 Ur Specific [place] >=1.030 (1.002-1.030) H 08/05/21 21:30 Urine Protein 30 mg/dL (NEGATIVE) H 08/05/21 21:30 Urine Glucose (UA) NEGATIVE mg/dL (NEGATIVE) 08/05/21 21:30 Urine Ketones TRACE mg/dL (NEGATIVE) 08/05/21 21:30 Urine Occult Blood NEGATIVE (NEGATIVE) 08/05/21 21:30 Urine Nitrite NEGATIVE (NEGATIVE) 08/05/21 21:30 Urine Bilirubin NEGATIVE (NEGATIVE) 08/05/21 21:30 Urine Urobilinogen 1 (NORMAL) E.U./dL (NORMAL) 08/05/21 21:30 Ur Leukocyte Esterase NEGATIVE (NEGATIVE) 08/05/21 21:30 Urine RBC None Seen /HPF (0-5) 08/05/21 21:30 Urine WBC 0-3 /HPF (0-5) 08/05/21 21:30 Ur Squamous Epith Cells FEW Squamous (<= Few) 08/05/21 21:30 Amorphous Sediment Few /LPF 08/05/21 21:30 Urine Bacteria Rare /HPF (None Seen) 08/05/21 21:30 Urine Culture Comments NOT INDICATED 08/05/21 21:30 Nasal Adenovirus (PCR) NOT DETECTED 08/04/21 13:20 Nasal B. parapertussis DNA (PCR) NOT DETECTED 08/04/21 13:20 Nasal Coronavir 229E PCR NOT DETECTED 08/04/21 13:20 Nasal Coronavir HKU1 PCR NOT DETECTED 08/04/21 13:20 Nasal Coronavir NL63 PCR NOT DETECTED 08/04/21 13:20 Nasal Coronavir OC43 PCR NOT DETECTED 08/04/21 13:20 Nasal Enterovir/Rhinovir PCR NOT DETECTED 08/04/21 13:20 Nasal Influenza B PCR NOT DETECTED 08/04/21 13:20 Nasal Influenza A PCR NOT DETECTED 08/04/21 13:20 Nasal Parainfluen 1 PCR NOT DETECTED 08/04/21 13:20 Nasal Parainfluen 2 PCR NOT DETECTED 08/04/21 13:20 Nasal Parainfluen 3 PCR NOT DETECTED 08/04/21 13:20 Nasal Parainfluen 4 PCR NOT DETECTED 08/04/21 13:20 Nasal RSV (PCR) NOT DETECTED 08/04/21 13:20 Nasal B.pertussis DNA PCR NOT DETECTED 08/04/21 13:20 Nasal C.pneumoniae (PCR) NOT DETECTED 08/04/21 13:20 Elliot Human Metapneumo PCR NOT DETECTED 08/04/21 13:20 Nasal M.pneumoniae (PCR) NOT DETECTED 08/04/21 13:20 Nasal SARS-CoV-2 (PCR) NOT DETECTED 08/04/21 13:20 Last Dose Date 08/26/21 08/26/21 12:04 Last Dose Time 0359 08/26/21 12:04 Vancomycin Trough 29.2 ug/mL (10.0-20.0) H* 08/26/21 12:04 Random Vancomycin 11.0 ug/mL 08/23/21 09:22 Blood Type O POSITIVE 08/22/21 09:25 Blood Type Recheck O POSITIVE 08/22/21 05:21 Sepsis Event Note (H) - Evaluation Current Stage of Sepsis: Resolved Possible source of Sepsis: positive: GI tract/intra-abdominal - Sepsis Criteria Sepsis Criteria: Recorded Heart Rate greater than 90 bpm, WBC count greater than 10% bands, WBC count greater than 12,000 or less than 4000, Metabolic: lactate > 2 mmol/L ABX Reporting Has patient been on IV antibiotics over the past 48 hours?: Yes
[2021-08-28] MEDS: MULTIVITAMIN W/MINERALS TABLET PO SCH (09:03)
[2021-08-28] MEDS: METOPROLOL TARTRATE 25 MG TABLET PO SCH ×2 (09:03→21:28)
[2021-08-28] MEDS: CEFEPIME 2 GM in SODIUM CHLORIDE 0.9% MINIBAG 100 ML IV SCH ×2 (09:05→21:00)
[2021-08-28] MEDS: VANCOMYCIN INJ 1 GM in SODIUM CHLORIDE 0.9% 250 ML IV SCH ×2 (09:12→21:01)
[2021-08-28] MEDS: FORMOTEROL FUMARATE NEB 20 MCG/2 ML INH SCH ×2 (09:37→20:58)
[2021-08-28] MEDS: BUDESONIDE 0.5 MG/2 ML NEB INH SCH ×2 (09:37→20:47)
[2021-08-28] MEDS: polyethylene glycoL 3350 17 GM PACKET PO SCH ×2 (11:45→21:29)
[2021-08-28] MEDS ORDERED: MAGNESIUM SULFATE 2 GRAM 2 GM/50 ML BAG IV ONE (14:00)
[2021-08-29] MEDS: metroNIDAZOLE 500 MG/100 ML 500 MG/100 ML BAG IV SCH (00:28)
[2021-08-29] MEDS: oxyCODONE 5 MG TABLET PO PRN ×4 (00:28→18:27)
[2021-08-29] MEDS: SODIUM CHLORIDE FLUSH 0.9% 10 ML SYRINGE IVP SCH ×5 (02:02→23:45)
[2021-08-29 06:31] LABS: CALCIUM 8.4 mg/dL (8.5-10.3); CREATININE 0.5 mg/dL (0.4-1.0); MAGNESIUM 1.9 mg/dL (1.7-2.8); POTASSIUM 4.2 mmol/L (3.5-5.0)
[2021-08-29] MEDS: ALBUTEROL NEB 2.5 MG/3 ML INH SCH ×3 (06:55→13:30)
[2021-08-29] MEDS: FUROSEMIDE 40 MG/4 ML VIAL IVP SCH ×2 (06:58→11:55)
[2021-08-29] MEDS: PANTOPRAZOLE 40 MG TABLET PO SCH (06:58)
[2021-08-29] MEDS: CLOTRIMAZOLE 10 MG LOZENGE MM SCH ×5 (06:58→21:18)
--- NOTE | 2021-08-29 07:21 | PROVIDER PROGRESS NOTE ---
Assessment/Plan - Problem List (1) Perforated abdominal viscus Assessment/Plan: General Surgery is primary team and rounding daily. Antibiotics discontinued today IV hydration discontinued. Patient receiving Lasix for anasarca. Currently on TPN Anticipating discharge on 08/30/2021 if patient remains afebrile and white blood cell count continues to be normal. (2) Status post colostomy Assessment/Plan: post op day #20. Surgery done on 08/09/[address] Patient is learning how to manage the colostomy bag. (3) Anasarca Assessment/Plan: Improving. This was due to aggressive IV hydration for severe sepsis. Septic state currently resolved. By 08/23/2021 patient was close to 43 L positive. IV hydration has been discontinued. On Lasix 40 mg IV twice daily. She has been ambulating the hallways. Continue to elevate legs while in bed. (4) Hypokalemia Assessment/Plan: 08/29 Improved/resolved. Potassium this morning is 4.2. 08/28 Improved/resolved. Potassium this morning was 3.7. Magnesium was 1.9. Will administer Magnesium sulphate 2g IV X1 08/27 Likely related to Lasix diuretic. Potassium 40 mEq p.o. 3 times daily ordered. Potassium this morning was 3.2. Magnesium 1.3. 20 mEq of potassium chloride IV administered. We will also administer magnesium sulfate 2 g IV now and repeat Magnesium sulphate 2g IV X1 at 9pm (5) Hyperglycemia Assessment/Plan: Mild. Will continue to monitor for now. - Current Meds Current Meds: Current Medications Generic Name Dose Route Start Last Admin Trade Name Freq PRN Reason Stop Dose Admin Acetaminophen 650 mg 08/04/21 14:01 08/28/21 23:14 Acetaminophen 325 Mg Tablet PO 650 mg Q4HR PRN Administration PAIN Albuterol 2.5 mg 08/04/21 17:26 08/27/21 02:54 Albuterol Neb 2.5 Mg/3 Ml INH 2.5 mg RTQ4H PRN Administration Wheezing Albuterol 2.5 mg 08/15/21 22:00 08/29/21 06:55 Albuterol Neb 2.5 Mg/3 Ml INH Not Given TID INGA Budesonide 0.5 mg 08/21/21 19:00 08/28/21 20:47 Budesonide 0.5 Mg/2 Ml Neb INH 0.5 mg RTBID INGA Administration Clotrimazole 10 mg 08/24/21 22:00 08/29/21 06:58 Clotrimazole 10 Mg Lozenge MM 08/31/21 21:59 10 mg 5XD INGA Administration Formoterol Fumarate 20 mcg 08/21/21 19:00 08/28/21 20:58 Formoterol Fumarate Neb 20 Mcg/2 Ml INH 20 mcg RTBID INGA Administration Furosemide 40 mg 08/27/21 06:00 08/29/21 06:58 Furosemide 40 Mg/4 Ml Vial IVP 40 mg 0600,1200 INGA Administration Heparin Sodium (Beef Lung) 30 - 50 unit 08/25/21 15:36 08/28/21 05:49 Heparin Flush 50 Units/5 Ml Syringe IVP 50 unit PRN PRN Administration Port Protocol (<24 hours) Cefepime HCl 2 gm/ Sodium 100 mls @ 200 mls/hr 08/07/21 09:00 08/28/21 21:33 Chloride IV Infused BID INGA Infusion Metronidazole 500 mg in 100 mls @ 100 mls/hr 08/07/21 15:00 08/29/21 02:03 Flagyl 500 Mg/100 Ml IV Infused Q8H INGA Infusion Vancomycin HCl 1 gm/ Sodium 250 mls @ 167 mls/hr 08/26/21 21:00 08/28/21 23:02 Chloride IV Infused BID INGA Infusion Metoclopramide HCl 5 mg 08/22/21 11:35 08/22/21 17:26 Metoclopramide 10 Mg/2 Ml Vial IVP 5 mg Q6HR PRN Administration Nausea / Vomiting Metoprolol Tartrate 25 mg 08/20/21 21:00 08/28/21 21:28 Metoprolol Tartrate 25 Mg Tablet PO 25 mg BID INGA Administration Mineral Oil 1 applic 08/07/21 17:17 08/25/21 20:41 Min Oil/Dimethicon/Coconut Oil 92 Gm Tube TOP 1 applic PRN PRN Administration Skin Care Multivitamins/Minerals 1 tab 08/27/21 11:00 08/28/21 09:03 Multivitamin W/Minerals Tablet PO 1 tab DAILYWM INGA Administration Oxycodone HCl 5 mg 08/19/21 11:04 08/29/21 05:16 Oxycodone 5 Mg Tablet PO 5 mg Q4HR PRN Administration PAIN Pantoprazole Sodium 40 mg 08/05/21 07:00 08/29/21 06:58 Pantoprazole 40 Mg Tablet PO 40 mg QDAC INGA Administration Polyethylene Glycol 17 gm 08/16/21 21:00 08/28/21 21:29 Polyethylene Glycol 3350 17 Gm Packet PO 17 gm BID INGA Administration Sodium Chloride 10 ml 08/04/21 17:00 08/29/21 02:03 Sodium Chloride Flush 0.9% 10 Ml Syringe IVP 10 ml 0100,0900,1700 INGA Administration Sodium Chloride 10 ml 08/04/21 14:01 08/25/21 20:43 Sodium Chloride Flush 0.9% 10 Ml Syringe IVP 10 ml PRN PRN Administration NEEDED PER PROVIDER ORDERS - Lab Result Fish Bone Diagrams: 08/29/21 06:45 08/29/21 06:15 - Additional Planning My Orders: My Active Orders 08/30/21 05:00 BMP - BASIC METABOLIC PANEL [CHEM] DAILYLAB CBC - COMP BLD CT W/AUTO DIFF [HEME] DAILYLAB MAGNESIUM [CHEM] DAILYLAB 08/31/21 05:00 BMP - BASIC METABOLIC PANEL [CHEM] DAILYLAB CBC - COMP BLD CT W/AUTO DIFF [HEME] DAILYLAB 09/01/21 05:00 BMP - BASIC METABOLIC PANEL [CHEM] DAILYLAB CBC - COMP BLD CT W/AUTO DIFF [HEME] DAILYLAB Subjective - Subjective Patient Reports: Other (Seated in bedside chair at time of visit. Denied any complaints. Lower extremity swelling improving.) Objective Vital Signs: Vital Signs - 24 hr 08/28/21 08/28/21 08/28/21 08:50 09:38 13:59 Temperature 36.4 C L Heart Rate 108 H 92 Heart Rate [ 108 H Brachial] Respiratory 18 20 20 Rate Blood Pressure Blood Pressure 119/67 [Right Brachial artery] O2 Saturation 95 08/28/21 08/28/21 08/28/21 15:26 21:28 23:44 Temperature 36.9 C 36.5 C Heart Rate Heart Rate [ 104 H 92 Brachial] Respiratory 20 18 Rate Blood Pressure 118/63 Blood Pressure 123/67 109/57 L [Right Brachial artery] O2 Saturation 99 96 Oxygen O2 Source Room air I&O (Last 24 Hrs): Intake and Output Totals x24h 08/27/21 08/28/21 08/29/21 23:59 23:59 23:59 Intake Total 4641.107 2430 100 Output Total 2125 2300 650 Balance 2516.107 130 -550 Comments/Notes: general: Alert, awake, oriented x3. No acute distress. HEENT: Atraumatic, normocephalic, PERRLA, EOMI Neck: Supple, no JVD Neuro: Alert, oriented x3, no focal deficits Cardiovascular: Regular rate and rhythm, S1, S2, no murmurs. >3+ edema Respiratory: CTABL, No respiratory distress. No wheezing, rhonchi, crackles. Abdomen: Normal bowel sounds, soft, nontender, nondistended, no splenomegaly or hepatomegaly. Surgical site dressing in place. Dry. Ostomy bag in place. Extremities: No clubbing, No cyanosis, >3+ edema. Skin: no rash, no decubitus ulcer. Dry and warm. - Results Results: Laboratory Results WBC 9.2 x10^3/uL (4.8-10.8) 08/28/21 05:50 RBC 3.00 10^6/uL (4.20-5.40) L 08/28/21 05:50 Hgb 8.8 g/dL (12.0-16.0) L 08/28/21 05:50 Hct 28.3 % (37.0-47.0) L 08/28/21 05:50 MCV 94.3 fL (81.0-99.0) 08/28/21 05:50 MCH 29.3 pg (27.0-31.0) 08/28/21 05:50 MCHC 31.1 g/dL (32.0-36.0) L 08/28/21 05:50 RDW 14.1 % (12.0-15.0) 08/28/21 05:50 Plt Count 509 10^3/uL (130-450) H 08/28/21 05:50 MPV 8.2 fL (7.9-10.8) 08/28/21 05:50 Neut # (Auto) 7.1 10^3/uL (1.5-6.6) H 08/28/21 05:50 Lymph # (Auto) 0.8 10^3/uL (1.5-3.5) L 08/28/21 05:50 [place] # (Auto) 0.6 10^3/uL (0.0-1.0) 08/28/21 05:50 Eos # (Auto) 0.4 10^3/uL (0.0-0.7) 08/28/21 05:50 Baso # (Auto) 0.1 10^3/uL (0.0-0.1) 08/28/21 05:50 Absolute Nucleated RBC 0.00 x10^3/uL 08/28/21 05:50 Total Counted 100 08/19/21 05:25 Band Neuts % (Manual) 1 % (0-10) 08/19/21 05:25 Abnorm Lymph % (Manual) 0 % 08/19/21 05:25 Metamyelocytes % 1 % (-0) H 08/16/21 06:20 Myelocytes % 1 % (-0) H 08/16/21 06:20 Nucleated RBC % 0.0 /100WBC 08/28/21 05:50 Neutrophils # (Manual) 19.7 10^3/uL (1.5-6.6) H 08/19/21 05:25 Lymphocytes # (Manual) 0.8 10^3/uL (1.5-3.5) L 08/19/21 05:25 Monocytes # (Manual) 0.6 10^3/uL (0.0-1.0) 08/19/21 05:25 Eosinophils # (Manual) 0.0 10^3/uL (0-0.7) 08/19/21 05:25 Basophils # (Manual) 0.0 10^3/uL (0-0.1) 08/19/21 05:25 Differential Comment MANUAL DIFFERENTIAL 08/19/21 05:25 Manual Slide Review Indicated 08/21/21 06:48 WBC Morphology NORMAL APPEARANCE (NORMAL) 08/19/21 05:25 Platelet Estimate INCREASED (>450,000) (NORMAL) 08/21/21 06:48 Platelet Morphology NORMAL APPEARANCE (NORMAL) 08/21/21 06:48 RBC Morph Micro Appear 1+ HYPOCHROMASIA (NORMAL) 08/21/21 06:48 PT 21.0 secs (9.9-12.6) H 08/26/21 07:59 INR 1.9 (0.8-1.2) H 08/26/21 07:59 VBG pH 7.424 (7.31-7.41) H 08/09/21 09:10 VBG pCO2 29.5 mmHg (41-51) L 08/09/21 09:10 VBG pO2 75.4 mmHg (25-47) H 08/09/21 09:10 VBG HCO3 18.9 mmol/L (23-28) L 08/09/21 09:10 VBG Total CO2 19.8 mmol/L (24-29) L 08/09/21 09:10 VBG O2 Saturation 95.7 % (60-80) H 08/09/21 09:10 VBG Base Excess -4.2 mmol/L (-2 - +2) L 08/09/21 09:10 Sodium 139 mmol/L (135-145) 08/29/21 06:15 Potassium 4.2 mmol/L (3.5-5.0) 08/29/21 06:15 Chloride 103 mmol/L (101-111) 08/29/21 06:15 Carbon Dioxide 29 mmol/L (21-32) 08/29/21 06:15 Anion Gap 7.0 (6-13) 08/29/21 06:15 BUN 10 mg/dL (6-20) 08/29/21 06:15 Creatinine 0.5 mg/dL (0.4-1.0) 08/29/21 06:15 Estimated GFR (MDRD) 123 (>89) 08/29/21 06:15 Glucose 87 mg/dL (70-100) 08/29/21 06:15 POC Whole Bld Glucose 73 mg/dL (70 - 100) 08/22/21 07:14 Estimat Average Glucose 114 mg/dL (70-100) H 08/10/21 04:15 Hemoglobin A1c % 5.6 % (4.27-6.07) 08/10/21 04:15 Lactic Acid 1.0 mmol/L (0.5-2.2) 08/08/21 14:59 Calcium 8.4 mg/dL (8.5-10.3) L 08/29/21 06:15 Phosphorus 2.4 mg/dL (2.5-4.6) L 08/16/21 06:20 Magnesium 1.9 mg/dL (1.7-2.8) 08/29/21 06:15 Total Bilirubin 0.3 mg/dL (0.2-1.0) 08/25/21 13:15 AST 21 IU/L (10-42) 08/25/21 13:15 ALT 14 IU/L (10-60) 08/25/21 13:15 Alkaline Phosphatase 91 IU/L (42-121) 08/25/21 13:15 Troponin I High Sens 4.4 ng/L (2.3-14.8) 08/05/21 23:25 Total Protein 5.2 g/dL (6.7-8.2) L 08/25/21 13:15 Albumin 1.8 g/dL (3.2-5.5) L 08/25/21 13:15 Globulin 3.4 g/dL (2.1-4.2) 08/25/21 13:15 Albumin/Globulin Ratio 0.5 (1.0-2.2) L 08/25/21 13:15 Prealbumin 8 mg/dL (18-45) L 08/16/21 06:20 Triglycerides 80 mg/dL (-149) 08/16/21 06:20 Lipase 18 U/L (22-51) L 08/04/21 11:10 TSH 1.65 uIU/mL (0.34-5.60) 08/06/21 04:50 Urine Color YELLOW 08/05/21 21:30 Urine Clarity CLEAR (CLEAR) 08/05/21 21:30 Urine pH 5.0 PH (5.0-7.5) 08/05/21 21:30 Ur Specific [place] >=1.030 (1.002-1.030) H 08/05/21 21:30 Urine Protein 30 mg/dL (NEGATIVE) H 08/05/21 21:30 Urine Glucose (UA) NEGATIVE mg/dL (NEGATIVE) 08/05/21 21:30 Urine Ketones TRACE mg/dL (NEGATIVE) 08/05/21 21:30 Urine Occult Blood NEGATIVE (NEGATIVE) 08/05/21 21:30 Urine Nitrite NEGATIVE (NEGATIVE) 08/05/21 21:30 Urine Bilirubin NEGATIVE (NEGATIVE) 08/05/21 21:30 Urine Urobilinogen 1 (NORMAL) E.U./dL (NORMAL) 01/17/22 21:30 Ur Leukocyte Esterase NEGATIVE (NEGATIVE) 08/05/21 21:30 Urine RBC None Seen /HPF (0-5) 08/05/21 21:30 Urine WBC 0-3 /HPF (0-5) 08/05/21 21:30 Ur Squamous Epith Cells FEW Squamous (<= Few) 08/05/21 21:30 Amorphous Sediment Few /LPF 08/05/21 21:30 Urine Bacteria Rare /HPF (None Seen) 08/05/21 21:30 Urine Culture Comments NOT INDICATED 08/05/21 21:30 Nasal Adenovirus (PCR) NOT DETECTED 08/04/21 13:20 Nasal B. parapertussis DNA (PCR) NOT DETECTED 08/04/21 13:20 Nasal Coronavir 229E PCR NOT DETECTED 08/04/21 13:20 Nasal Coronavir HKU1 PCR NOT DETECTED 08/04/21 13:20 Nasal Coronavir NL63 PCR NOT DETECTED 08/04/21 13:20 Nasal Coronavir OC43 PCR NOT DETECTED 08/04/21 13:20 Nasal Enterovir/Rhinovir PCR NOT DETECTED 08/04/21 13:20 Nasal Influenza B PCR NOT DETECTED 08/04/21 13:20 Nasal Influenza A PCR NOT DETECTED 08/04/21 13:20 Nasal Parainfluen 1 PCR NOT DETECTED 08/04/21 13:20 Nasal Parainfluen 2 PCR NOT DETECTED 08/04/21 13:20 Nasal Parainfluen 3 PCR NOT DETECTED 08/04/21 13:20 Nasal Parainfluen 4 PCR NOT DETECTED 08/04/21 13:20 Nasal RSV (PCR) NOT DETECTED 08/04/21 13:20 Nasal B.pertussis DNA PCR NOT DETECTED 08/04/21 13:20 Nasal C.pneumoniae (PCR) NOT DETECTED 08/04/21 13:20 Elliot Human Metapneumo PCR NOT DETECTED 08/04/21 13:20 Nasal M.pneumoniae (PCR) NOT DETECTED 08/04/21 13:20 Nasal SARS-CoV-2 (PCR) NOT DETECTED 08/04/21 13:20 Last Dose Date 08/27/21 08/28/21 08:15 Last Dose Time 2339 08/28/21 08:15 Vancomycin Trough 19.0 ug/mL (10.0-20.0) 08/28/21 08:15 Random Vancomycin 11.0 ug/mL 08/23/21 09:22 Blood Type O POSITIVE 08/22/21 09:25 Blood Type Recheck O POSITIVE 08/22/21 05:21 Sepsis Event Note (H) - Evaluation Current Stage of Sepsis: Resolved Possible source of Sepsis: positive: GI tract/intra-abdominal - Sepsis Criteria Sepsis Criteria: Recorded Heart Rate greater than 90 bpm, WBC count greater than 10% bands, WBC count greater than 12,000 or less than 4000, Metabolic: lactate > 2 mmol/L ABX Reporting Has patient been on IV antibiotics over the past 48 hours?: No
[2021-08-29 07:34] LABS: BASOPHILS # (AUTO) 0.1 10^3/uL (0.0-0.1); BASOPHILS % (AUTO) 0.6 %; EOSINOPHILS # (AUTO) 0.4 10^3/uL (0.0-0.7); EOSINOPHILS % (AUTO) 4.7 %; HCT - HEMATOCRIT 28.4 % (37.0-47.0); HGB - HEMOGLOBIN 8.8 g/dL (12.0-16.0); LYMPHOCYTES # (AUTO) 0.6 10^3/uL (1.5-3.5); LYMPHOCYTES % (AUTO) 7.2 %; MEAN CORPUSCULAR VOLUME 93.7 fL (81.0-99.0); MEAN PLATELET VOLUME 8.6 fL (7.9-10.8); MONOCYTES # (AUTO) 0.5 10^3/uL (0.0-1.0); MONOCYTES % (AUTO) 5.4 %; NEUTROPHILS # (AUTO) 6.7 10^3/uL (1.5-6.6); NEUTROPHILS % (AUTO) 80.8 %; PLT - PLATELET COUNT 517 10^3/uL (130-450); RED BLOOD COUNT 3.03 10^6/uL (4.20-5.40); RED CELL DISTRIBUTION WIDTH 14.2 % (12.0-15.0); WHITE BLOOD COUNT 8.3 x10^3/uL (4.8-10.8)
[2021-08-29] MEDS: MULTIVITAMIN W/MINERALS TABLET PO SCH (08:07)
[2021-08-29] MEDS: METOPROLOL TARTRATE 25 MG TABLET PO SCH ×2 (08:08→21:18)
[2021-08-29] MEDS: polyethylene glycoL 3350 17 GM PACKET PO SCH ×2 (08:08→21:18)
[2021-08-29] MEDS: CEFEPIME 2 GM in SODIUM CHLORIDE 0.9% MINIBAG 100 ML IV SCH (08:09)
[2021-08-29] MEDS: FORMOTEROL FUMARATE NEB 20 MCG/2 ML INH SCH ×2 (08:42→20:32)
[2021-08-29] MEDS: BUDESONIDE 0.5 MG/2 ML NEB INH SCH ×2 (08:42→20:32)
[2021-08-29] MEDS: ACETAMINOPHEN 325 MG TABLET PO PRN ×2 (14:20→21:18)
--- NOTE | 2021-08-29 16:29 | PROVIDER PROGRESS NOTE ---
Subjective - General Admit Date: 08/04/21 Procedure Date: 08/26/21 Post Op Days: 3 Procedure Performed: Laparotomy with Kenneth procedure; Wound closure - Review of Systems Wound/Incisions: positive: Other (Wound vac is in place and working. Ostomy is viable and working) Drain Type: Mo Drain Output Description: Serous General: positive: Weakness HEENT: positive: No symptoms Pulmonary: negative: Shortness of breath Cardiovascular: positive: No symptoms Gastrointestinal: positive: Abdominal pain. negative: Nausea, Vomiting Genitourinary: positive: No symptoms Skin: positive: Other (Still frustrated about the swelling) All Other Systems: positive: Reviewed and negative - Other Other Information/Narrative: Na in in much better spirits today. She is sitting in the chair and making plans for discharge to [facility]. She denies any pain. She is a little bit concerned about not feeling comfortable with changing the appliance but is much more comfortable with emptying the bag now. The drain site inferior to the ostomy has continued to drain purulent fluid and her wbcs have normalized. She has continued to mobilize fluid and has made great progress in that way. . Objective - Patient Data Reviewed Vital Signs: Yes Vital Signs: Vital Signs x48h Temp Pulse Pulse Resp BP Pulse Ox 08/29/21 16:02 36.5 C 104 H 24 109/61 96 08/29/21 13:31 98 20 08/29/21 08:44 104 H 20 Weight: Weight 08/27/21 08/28/21 08/29/21 23:59 23:59 23:59 Weight (kg) 90 kg 89 kg 87 kg Intake & Output: Intake and Output Totals x24h 08/27/21 08/28/21 08/29/21 23:59 23:59 23:59 Intake Total 4641.107 2430 910 Output Total 2125 2300 2100 Balance 2516.107 130 -1190 - Lab Results Lab Results: 08/29/21 06:45 08/29/21 06:15 Other Lab Results: Lab Results x24hrs 08/29/21 08/29/21 Range/Units 06:45 06:15 WBC 8.3 (4.8-10.8) x10^3/uL RBC 3.03 L (4.20-5.40) 10^6/uL Hgb 8.8 L (12.0-16.0) g/dL Hct 28.4 L (37.0-47.0) % MCV 93.7 (81.0-99.0) fL MCH 29.0 (27.0-31.0) pg MCHC 31.0 L (32.0-36.0) g/dL RDW 14.2 (12.0-15.0) % Plt Count 517 H (130-450) 10^3/uL MPV 8.6 (7.9-10.8) fL Neut # (Auto) 6.7 H (1.5-6.6) 10^3/uL Lymph # (Auto) 0.6 L (1.5-3.5) 10^3/uL [place] # (Auto) 0.5 (0.0-1.0) 10^3/uL Eos # (Auto) 0.4 (0.0-0.7) 10^3/uL Baso # (Auto) 0.1 (0.0-0.1) 10^3/uL Absolute Nucleated RBC 0.00 x10^3/uL Nucleated RBC % 0.0 /100WBC Sodium 139 (135-145) mmol/L Potassium 4.2 (3.5-5.0) mmol/L Chloride 103 (101-111) mmol/L Carbon Dioxide 29 (21-32) mmol/L Anion Gap 7.0 (6-13) BUN 10 (6-20) mg/dL Creatinine 0.5 (0.4-1.0) mg/dL Estimated GFR (MDRD) 123 (>89) Glucose 87 (70-100) mg/dL Calcium 8.4 L (8.5-10.3) mg/dL Magnesium 1.9 (1.7-2.8) mg/dL - Current Medications Current Medications: Current Medications Generic Name Dose Route Start Last Admin Trade Name Freq PRN Reason Stop Dose Admin Acetaminophen 650 mg 08/04/21 14:01 08/29/21 14:20 Acetaminophen 325 Mg Tablet PO 650 mg Q4HR PRN Administration PAIN Albuterol 2.5 mg 08/04/21 17:26 08/27/21 02:54 Albuterol Neb 2.5 Mg/3 Ml INH 2.5 mg RTQ4H PRN Administration Wheezing Albuterol 2.5 mg 08/15/21 22:00 08/29/21 13:30 Albuterol Neb 2.5 Mg/3 Ml INH 2.5 mg TID INGA Administration Budesonide 0.5 mg 08/21/21 19:00 08/29/21 08:42 Budesonide 0.5 Mg/2 Ml Neb INH 0.5 mg RTBID INGA Administration Clotrimazole 10 mg 08/24/21 22:00 08/29/21 14:20 Clotrimazole 10 Mg Lozenge MM 08/31/21 21:59 10 mg 5XD INGA Administration Formoterol Fumarate 20 mcg 08/21/21 19:00 08/29/21 08:42 Formoterol Fumarate Neb 20 Mcg/2 Ml INH 20 mcg RTBID INGA Administration Furosemide 40 mg 08/27/21 06:00 08/29/21 11:55 Furosemide 40 Mg/4 Ml Vial IVP 40 mg 0600,1200 INGA Administration Heparin Sodium (Beef Lung) 30 - 50 unit 08/25/21 15:36 08/28/21 05:49 Heparin Flush 50 Units/5 Ml Syringe IVP 50 unit PRN PRN Administration Port Protocol (<24 hours) Metoclopramide HCl 5 mg 08/22/21 11:35 08/22/21 17:26 Metoclopramide 10 Mg/2 Ml Vial IVP 5 mg Q6HR PRN Administration Nausea / Vomiting Metoprolol Tartrate 25 mg 08/20/21 21:00 08/29/21 08:08 Metoprolol Tartrate 25 Mg Tablet PO 25 mg BID INGA Administration Mineral Oil 1 applic 08/07/21 17:17 08/25/21 20:41 Min Oil/Dimethicon/Coconut Oil 92 Gm Tube TOP 1 applic PRN PRN Administration Skin Care Multivitamins/Minerals 1 tab 08/27/21 11:00 08/29/21 08:07 Multivitamin W/Minerals Tablet PO 1 tab DAILYWM INGA Administration Oxycodone HCl 5 mg 08/19/21 11:04 08/29/21 10:54 Oxycodone 5 Mg Tablet PO 5 mg Q4HR PRN Administration PAIN Pantoprazole Sodium 40 mg 08/05/21 07:00 08/29/21 06:58 Pantoprazole 40 Mg Tablet PO 40 mg QDAC INGA Administration Polyethylene Glycol 17 gm 08/16/21 21:00 02/10/22 08:08 Polyethylene Glycol 3350 17 Gm Packet PO 17 gm BID INGA Administration Sodium Chloride 10 ml 08/04/21 17:00 08/29/21 08:08 Sodium Chloride Flush 0.9% 10 Ml Syringe IVP 10 ml 0100,0900,1700 INGA Administration Sodium Chloride 10 ml 08/04/21 14:01 08/25/21 20:43 Sodium Chloride Flush 0.9% 10 Ml Syringe IVP 10 ml PRN PRN Administration NEEDED PER PROVIDER ORDERS - Physical Exam Wound/Incisions: positive: Healing well (Open wound is approximated. Only serous drainage on the packing. Inferor drain site with approx 5 mls of purulent fluid when the packing is removed. No erythema of the surrounding skin.) General Appearance: positive: No acute distress Eyes Bilateral: positive: Normal inspection Respiratory: positive: No respiratory distress Cardiovascular: positive: Regular rate & rhythm Abdomen: positive: Nml bowel sounds, No distention Skin: positive: Color nml Neurologic/Psychiatric: positive: Oriented x3 ABX Reporting Has patient been on IV antibiotics over the past 48 hours?: Yes Impression/Plan - Problem List Problem List: Stercoral perforation of the sigmoid colon 1. Antibiotics have been stopped today and wounds are improving. If WBCs hold overnight, agree with transfer to [facility] in the AM 2. Discontinue wound packing of both the midline and LLQ drain site. I believe I disrupted the last pocket of infected fluid when i pulled the drains in the operating room. This fluid is draining freely and this is a desirable outcome. Will cover the wounds with dry gauze only and change as often as needed to keep clean. 3. FEN is improving. Na has expressed a desire to [place]. She would also like to meet with a drilling engineer in an outpatient setting to help with meal ideas following her recovery. We will try to address both of those issues in an outpatient setting once she is discharged from SNF.
[2021-08-30] MEDS: oxyCODONE 5 MG TABLET PO PRN ×3 (00:01→13:46)
[2021-08-30] MEDS: ACETAMINOPHEN 325 MG TABLET PO PRN (01:54)
[2021-08-30 05:08] LABS: BASOPHILS # (AUTO) 0.1 10^3/uL (0.0-0.1); BASOPHILS % (AUTO) 0.5 %; EOSINOPHILS # (AUTO) 0.4 10^3/uL (0.0-0.7); EOSINOPHILS % (AUTO) 3.7 %; HCT - HEMATOCRIT 29.4 % (37.0-47.0); HGB - HEMOGLOBIN 9.1 g/dL (12.0-16.0); LYMPHOCYTES # (AUTO) 1.1 10^3/uL (1.5-3.5); LYMPHOCYTES % (AUTO) 10.5 %; MEAN CORPUSCULAR HEMOGLOBIN 28.9 pg (27.0-31.0); MEAN CORPUSCULAR VOLUME 93.3 fL (81.0-99.0); MEAN PLATELET VOLUME 8.4 fL (7.9-10.8); MONOCYTES # (AUTO) 0.6 10^3/uL (0.0-1.0); MONOCYTES % (AUTO) 5.8 %; NEUTROPHILS % (AUTO) 78.1 %; PLT - PLATELET COUNT 606 10^3/uL (130-450); RED BLOOD COUNT 3.15 10^6/uL (4.20-5.40); RED CELL DISTRIBUTION WIDTH 14.5 % (12.0-15.0); WHITE BLOOD COUNT 10.2 x10^3/uL (4.8-10.8)
[2021-08-30 05:13] LABS: CALCIUM 8.5 mg/dL (8.5-10.3); CREATININE 0.5 mg/dL (0.4-1.0); MAGNESIUM 1.8 mg/dL (1.7-2.8); POTASSIUM 4.1 mmol/L (3.5-5.0)
[2021-08-30] MEDS: CLOTRIMAZOLE 10 MG LOZENGE MM SCH ×2 (05:46→08:43)
[2021-08-30] MEDS: FUROSEMIDE 40 MG/4 ML VIAL IVP SCH ×2 (05:46→11:36)
[2021-08-30] MEDS: SODIUM CHLORIDE FLUSH 0.9% 10 ML SYRINGE IVP PRN (05:46)
[2021-08-30] MEDS: PANTOPRAZOLE 40 MG TABLET PO SCH (05:46)
[2021-08-30] MEDS: SODIUM CHLORIDE FLUSH 0.9% 10 ML SYRINGE IVP SCH (05:46)
[2021-08-30] MEDS: ALBUTEROL NEB 2.5 MG/3 ML INH SCH ×2 (06:23→13:50)
--- NOTE | 2021-08-30 07:15 | PROVIDER PROGRESS NOTE ---
Assessment/Plan - Current Meds Current Meds: Current Medications Generic Name Dose Route Start Last Admin Trade Name Freq PRN Reason Stop Dose Admin Acetaminophen 650 mg 08/04/21 14:01 08/30/21 01:54 Acetaminophen 325 Mg Tablet PO 650 mg Q4HR PRN Administration PAIN Albuterol 2.5 mg 08/04/21 17:26 08/27/21 02:54 Albuterol Neb 2.5 Mg/3 Ml INH 2.5 mg RTQ4H PRN Administration Wheezing Albuterol 2.5 mg 08/15/21 22:00 08/30/21 06:23 Albuterol Neb 2.5 Mg/3 Ml INH Not Given TID INGA Budesonide 0.5 mg 08/21/21 19:00 08/29/21 20:32 Budesonide 0.5 Mg/2 Ml Neb INH 0.5 mg RTBID INGA Administration Clotrimazole 10 mg 08/24/21 22:00 08/30/21 05:46 Clotrimazole 10 Mg Lozenge MM 08/31/21 21:59 10 mg 5XD INGA Administration Formoterol Fumarate 20 mcg 08/21/21 19:00 08/29/21 20:32 Formoterol Fumarate Neb 20 Mcg/2 Ml INH 20 mcg RTBID INGA Administration Furosemide 40 mg 08/27/21 06:00 08/30/21 05:46 Furosemide 40 Mg/4 Ml Vial IVP 40 mg 0600,1200 INGA Administration Heparin Sodium (Beef Lung) 30 - 50 unit 08/25/21 15:36 08/29/21 18:28 Heparin Flush 50 Units/5 Ml Syringe IVP 150 unit PRN PRN Administration Port Protocol (<24 hours) Metoclopramide HCl 5 mg 08/22/21 11:35 08/22/21 17:26 Metoclopramide 10 Mg/2 Ml Vial IVP 5 mg Q6HR PRN Administration Nausea / Vomiting Metoprolol Tartrate 25 mg 08/20/21 21:00 08/29/21 21:18 Metoprolol Tartrate 25 Mg Tablet PO 25 mg BID INGA Administration Mineral Oil 1 applic 08/07/21 17:17 08/25/21 20:41 Min Oil/Dimethicon/Coconut Oil 92 Gm Tube TOP 1 applic PRN PRN Administration Skin Care Multivitamins/Minerals 1 tab 08/27/21 11:00 08/29/21 08:07 Multivitamin W/Minerals Tablet PO 1 tab DAILYWM INGA Administration Oxycodone HCl 5 mg 08/19/21 11:04 08/30/21 06:15 Oxycodone 5 Mg Tablet PO 5 mg Q4HR PRN Administration PAIN Pantoprazole Sodium 40 mg 08/05/21 07:00 08/30/21 05:46 Pantoprazole 40 Mg Tablet PO 40 mg QDAC INGA Administration Polyethylene Glycol 17 gm 08/16/21 21:00 08/29/21 21:18 Polyethylene Glycol 3350 17 Gm Packet PO 17 gm BID INGA Administration Sodium Chloride 10 ml 08/04/21 17:00 08/30/21 05:46 Sodium Chloride Flush 0.9% 10 Ml Syringe IVP 10 ml 0100,0900,1700 INGA Administration Sodium Chloride 10 ml 08/04/21 14:01 08/30/21 05:46 Sodium Chloride Flush 0.9% 10 Ml Syringe IVP 10 ml PRN PRN Administration NEEDED PER PROVIDER ORDERS - Lab Result Fish Bone Diagrams: 08/30/21 04:30 08/30/21 04:30 - Additional Planning My Orders: My Active Orders 08/31/21 05:00 BMP - BASIC METABOLIC PANEL [CHEM] DAILYLAB CBC - COMP BLD CT W/AUTO DIFF [HEME] DAILYLAB 09/01/21 05:00 BMP - BASIC METABOLIC PANEL [CHEM] DAILYLAB CBC - COMP BLD CT W/AUTO DIFF [HEME] DAILYLAB Objective Vital Signs: Vital Signs - 24 hr 08/29/21 08/29/21 08/29/21 08:08 08:14 08:44 Temperature 37.0 C Heart Rate 104 H Heart Rate [ Brachial] Heart Rate [ 110 H Radial] Respiratory 18 20 Rate Blood Pressure 111/67 Blood Pressure 111/67 [Right Brachial artery] O2 Saturation 95 08/29/21 08/29/21 08/29/21 13:31 16:02 20:33 Temperature 36.5 C Heart Rate 98 78 Heart Rate [ 104 H Brachial] Heart Rate [ Radial] Respiratory 20 24 20 Rate Blood Pressure Blood Pressure 109/61 [Right Brachial artery] O2 Saturation 96 08/29/21 08/29/21 08/29/21 21:17 21:18 23:39 Temperature 36.1 C L Heart Rate Heart Rate [ 94 87 Brachial] Heart Rate [ Radial] Respiratory 18 Rate Blood Pressure 110/68 Blood Pressure 110/68 128/72 [Right Brachial artery] O2 Saturation 96 Oxygen O2 Source Room air I&O (Last 24 Hrs): Intake and Output Totals x24h 08/28/21 08/29/21 08/30/21 23:59 23:59 23:59 Intake Total 2430 1030 240 Output Total 2300 2400 300 Balance 130 -1370 -60 - Results Results: Laboratory Results WBC 10.2 x10^3/uL (4.8-10.8) 08/30/21 04:30 RBC 3.15 10^6/uL (4.20-5.40) L 08/30/21 04:30 Hgb 9.1 g/dL (12.0-16.0) L 08/30/21 04:30 Hct 29.4 % (37.0-47.0) L 08/30/21 04:30 MCV 93.3 fL (81.0-99.0) 08/30/21 04:30 MCH 28.9 pg (27.0-31.0) 08/30/21 04:30 MCHC 31.0 g/dL (32.0-36.0) L 08/30/21 04:30 RDW 14.5 % (12.0-15.0) 08/30/21 04:30 Plt Count 606 10^3/uL (130-450) H 08/30/21 04:30 MPV 8.4 fL (7.9-10.8) 08/30/21 04:30 Neut # (Auto) 8.0 10^3/uL (1.5-6.6) H 08/30/21 04:30 Lymph # (Auto) 1.1 10^3/uL (1.5-3.5) L 08/30/21 04:30 Waller # (Auto) 0.6 10^3/uL (0.0-1.0) 08/30/21 04:30 Eos # (Auto) 0.4 10^3/uL (0.0-0.7) 08/30/21 04:30 Baso # (Auto) 0.1 10^3/uL (0.0-0.1) 08/30/21 04:30 Absolute Nucleated RBC 0.00 x10^3/uL 08/30/21 04:30 Total Counted 100 08/19/21 05:25 Band Neuts % (Manual) 1 % (0-10) 08/19/21 05:25 Abnorm Lymph % (Manual) 0 % 08/19/21 05:25 Metamyelocytes % 1 % (-0) H 08/16/21 06:20 Myelocytes % 1 % (-0) H 08/16/21 06:20 Nucleated RBC % 0.0 /100WBC 08/30/21 04:30 Neutrophils # (Manual) 19.7 10^3/uL (1.5-6.6) H 08/19/21 05:25 Lymphocytes # (Manual) 0.8 10^3/uL (1.5-3.5) L 08/19/21 05:25 Monocytes # (Manual) 0.6 10^3/uL (0.0-1.0) 08/19/21 05:25 Eosinophils # (Manual) 0.0 10^3/uL (0-0.7) 08/19/21 05:25 Basophils # (Manual) 0.0 10^3/uL (0-0.1) 08/19/21 05:25 Differential Comment MANUAL DIFFERENTIAL 08/19/21 05:25 Manual Slide Review Indicated 08/21/21 06:48 WBC Morphology NORMAL APPEARANCE (NORMAL) 08/19/21 05:25 Platelet Estimate INCREASED (>450,000) (NORMAL) 08/21/21 06:48 Platelet Morphology NORMAL APPEARANCE (NORMAL) 08/21/21 06:48 RBC Morph Micro Appear 1+ HYPOCHROMASIA (NORMAL) 08/21/21 06:48 PT 21.0 secs (9.9-12.6) H 08/26/21 07:59 INR 1.9 (0.8-1.2) H 08/26/21 07:59 VBG pH 7.424 (7.31-7.41) H 08/09/21 09:10 VBG pCO2 29.5 mmHg (41-51) L 08/09/21 09:10 VBG pO2 75.4 mmHg (25-47) H 08/09/21 09:10 VBG HCO3 18.9 mmol/L (23-28) L 08/09/21 09:10 VBG Total CO2 19.8 mmol/L (24-29) L 08/09/21 09:10 VBG O2 Saturation 95.7 % (60-80) H 08/09/21 09:10 VBG Base Excess -4.2 mmol/L (-2 - +2) L 08/09/21 09:10 Sodium 137 mmol/L (135-145) 08/30/21 04:30 Potassium 4.1 mmol/L (3.5-5.0) 08/30/21 04:30 Chloride 96 mmol/L (101-111) L 08/30/21 04:30 Carbon Dioxide 31 mmol/L (21-32) 08/30/21 04:30 Anion Gap 10.0 (6-13) 08/30/21 04:30 BUN 10 mg/dL (6-20) 08/30/21 04:30 Creatinine 0.5 mg/dL (0.4-1.0) 08/30/21 04:30 Estimated GFR (MDRD) 123 (>89) 08/30/21 04:30 Glucose 95 mg/dL (70-100) 08/30/21 04:30 POC Whole Bld Glucose 73 mg/dL (70 - 100) 08/22/21 07:14 Estimat Average Glucose 114 mg/dL (70-100) H 08/10/21 04:15 Hemoglobin A1c % 5.6 % (4.27-6.07) 08/10/21 04:15 Lactic Acid 1.0 mmol/L (0.5-2.2) 08/08/21 14:59 Calcium 8.5 mg/dL (8.5-10.3) 08/30/21 04:30 Phosphorus 2.4 mg/dL (2.5-4.6) L 08/16/21 06:20 Magnesium 1.8 mg/dL (1.7-2.8) 08/30/21 04:30 Total Bilirubin 0.3 mg/dL (0.2-1.0) 08/25/21 13:15 AST 21 IU/L (10-42) 08/25/21 13:15 ALT 14 IU/L (10-60) 08/25/21 13:15 Alkaline Phosphatase 91 IU/L (42-121) 08/25/21 13:15 Troponin I High Sens 4.4 ng/L (2.3-14.8) 08/05/21 23:25 Total Protein 5.2 g/dL (6.7-8.2) L 08/25/21 13:15 Albumin 1.8 g/dL (3.2-5.5) L 08/25/21 13:15 Globulin 3.4 g/dL (2.1-4.2) 08/25/21 13:15 Albumin/Globulin Ratio 0.5 (1.0-2.2) L 08/25/21 13:15 Prealbumin 8 mg/dL (18-45) L 08/16/21 06:20 Triglycerides 80 mg/dL (-149) 08/16/21 06:20 Lipase 18 U/L (22-51) L 08/04/21 11:10 TSH 1.65 uIU/mL (0.34-5.60) 08/06/21 04:50 Urine Color YELLOW 08/05/21 21:30 Urine Clarity CLEAR (CLEAR) 08/05/21 21:30 Urine pH 5.0 PH (5.0-7.5) 08/05/21 21:30 Ur Specific [place] >=1.030 (1.002-1.030) H 08/05/21 21:30 Urine Protein 30 mg/dL (NEGATIVE) H 08/05/21 21:30 Urine Glucose (UA) NEGATIVE mg/dL (NEGATIVE) 08/05/21 21:30 Urine Ketones TRACE mg/dL (NEGATIVE) 08/05/21 21:30 Urine Occult Blood NEGATIVE (NEGATIVE) 08/05/21 21:30 Urine Nitrite NEGATIVE (NEGATIVE) 08/05/21 21:30 Urine Bilirubin NEGATIVE (NEGATIVE) 08/05/21 21:30 Urine Urobilinogen 1 (NORMAL) E.U./dL (NORMAL) 08/05/21 21:30 Ur Leukocyte Esterase NEGATIVE (NEGATIVE) 08/05/21 21:30 Urine RBC None Seen /HPF (0-5) 08/05/21 21:30 Urine WBC 0-3 /HPF (0-5) 08/05/21 21:30 Ur Squamous Epith Cells FEW Squamous (<= Few) 08/05/21 21:30 Amorphous Sediment Few /LPF 08/05/21 21:30 Urine Bacteria Rare /HPF (None Seen) 08/05/21 21:30 Urine Culture Comments NOT INDICATED 08/05/21 21:30 Nasal Adenovirus (PCR) NOT DETECTED 08/04/21 13:20 Nasal B. parapertussis DNA (PCR) NOT DETECTED 08/04/21 13:20 Nasal Coronavir 229E PCR NOT DETECTED 08/04/21 13:20 Nasal Coronavir HKU1 PCR NOT DETECTED 08/04/21 13:20 Nasal Coronavir NL63 PCR NOT DETECTED 08/04/21 13:20 Nasal Coronavir OC43 PCR NOT DETECTED 08/04/21 13:20 Nasal Enterovir/Rhinovir PCR NOT DETECTED 08/04/21 13:20 Nasal Influenza B PCR NOT DETECTED 08/04/21 13:20 Nasal Influenza A PCR NOT DETECTED 08/04/21 13:20 Nasal Parainfluen 1 PCR NOT DETECTED 08/04/21 13:20 Nasal Parainfluen 2 PCR NOT DETECTED 08/04/21 13:20 Nasal Parainfluen 3 PCR NOT DETECTED 08/04/21 13:20 Nasal Parainfluen 4 PCR NOT DETECTED 08/04/21 13:20 Nasal RSV (PCR) NOT DETECTED 08/04/21 13:20 Nasal B.pertussis DNA PCR NOT DETECTED 08/04/21 13:20 Nasal C.pneumoniae (PCR) NOT DETECTED 08/04/21 13:20 Elliot Human Metapneumo PCR NOT DETECTED 08/04/21 13:20 Nasal M.pneumoniae (PCR) NOT DETECTED 08/04/21 13:20 Nasal SARS-CoV-2 (PCR) NOT DETECTED 08/04/21 13:20 Last Dose Date 08/27/21 08/28/21 08:15 Last Dose Time 233808/28/21 08:15 Vancomycin Trough 19.0 ug/mL (10.0-20.0) 08/28/21 08:15 Random Vancomycin 11.0 ug/mL 08/23/21 09:22 Blood Type O POSITIVE 08/22/21 09:25 Blood Type Recheck O POSITIVE 08/22/21 05:21 Sepsis Event Note (H) - Evaluation Current Stage of Sepsis: Resolved Possible source of Sepsis: positive: GI tract/intra-abdominal - Sepsis Criteria Sepsis Criteria: Recorded Heart Rate greater than 90 bpm, WBC count greater than 10% bands, WBC count greater than 12,000 or less than 4000, Metabolic: lactate > 2 mmol/L
[2021-08-30] MEDS: BUDESONIDE 0.5 MG/2 ML NEB INH SCH (07:30)
[2021-08-30] MEDS: FORMOTEROL FUMARATE NEB 20 MCG/2 ML INH SCH (07:30)
[2021-08-30] MEDS: ALBUTEROL NEB 2.5 MG/3 ML INH PRN (07:30)
[2021-08-30] MEDS: MULTIVITAMIN W/MINERALS TABLET PO SCH (08:43)
[2021-08-30] MEDS: polyethylene glycoL 3350 17 GM PACKET PO SCH (08:43)
[2021-08-30] MEDS: METOPROLOL TARTRATE 25 MG TABLET PO SCH (08:43)
--- NOTE | 2021-08-30 08:57 | Discharge Plan ---
"Discharge Plan for SNF / GUS - Discharge Plan And Transition Orders Problem Reviewed?: Yes Disposition: 03 SNF DC/Xfer Condition: Stable Allergies and Adverse Reactions: Allergies Allergy/AdvReac Type Severity Reaction Status Date / Time egg Allergy Severe Anaphylaxis Verified 08/04/21 10:57 Plan of Treatment: You were admitted on 08/04/2021 With complaint of constipation. You had hernia repair done 3 weeks prior to the admission date. Initial treatment plan was to observe and see how your clinical course progress. However in the course of the hospital stay you had a bowel perforation for which you were taken to the OR on 08/09/21. You had an exploratory laparotomy with sigmoid colectomy. After surgery you had a colostomy bag in place. Over the course of your hospital stay your ileus which developed after surgery and anasarca which is generalized body swelling from IV fluids given for the septic state has been treated. You were on antibiotics which were discontinued about 24 hours before the day of discharge. You were also treated with Lasix 40 mg IV daily which resulted in significant urine output. On the day of discharge you are being prescribed Lasix 40 mg p.o. daily to take for 7 more days. By the day of discharge your white blood cell count was back to normal and you had not had fever in at least 5 days. Your platelet count was high. This is thought to be reactive as a result of infection and treatment. You are advised to take a baby aspirin daily which you had already been taking at home. You will be discharged to [facility] where you would continue working with PT/OT for rehabilitation/strengthening. You will follow-up with general surgery Dr. Zhao in the outpatient setting as planned. You are expected to follow-up with your primary care physician within 7 to 10 days or as needed. The above plan was explained to you. You expressed understanding and are in agreement with the plan. - SNF / RESIDENTIAL Transition Orders Admit to (Facility): [facility] Discharge Diagnosis: Inguinal hernia. Status post repair. Perforated abdominal viscus status post colostomy. Sepsis secondary to perforated abdominal viscus. Ileus: Acute. Resolved Anasarca: Improving. Patient will continue taking Lasix for 7 days upon discharge. Medicare Certification Statement: I certify that Post Hospital intermediate care is medically necessary on a continuing basis for any of the conditions for which she/he is receiving care during hospitalization. Notify PCP of admission and forward orders to primary provider for signature. Weight on admission and: Weekly Call PCP immediately if weight increases by: 3 kg Other Notification Orders: Call PCP immediately if patient develops dyspnea, chest pain/tightness or edema. House Bowel Program: Yes Additional Bowel Program Orders: If no BM after 2 days, nurse may give M.O.M. 30ml PO PRN and/or ducolax Supp 1 VA and/or LINDA 250mg P.O., and/or senna 1-2 tabs PO. On day 3 nurse may give repeat above order until residents constipation is resolved. 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 - Medications New Prescriptions: oxyCODONE [Roxicodone] 5 mg PO Q4HR PRN #20 tablet PRN Reason: Pain Furosemide [Lasix] 40 mg PO DAILY #7 tablet - Diet Texture: Regular Liquids: Thin May have monthly special meal: Yes - Therapies | Activity Therapy: Evaluation | Treat if indicated: PT, OT Activity: Per Therapy [employer] Weight Bearing: Full Weight Assistance Devices: Walker"
--- NOTE | 2021-08-30 08:57 | DISCHARGE SUMMARY ---
Discharge Summary Admit Date: 08/09/21 Discharge Date: 08/30/21 Discharging Provider: Mary Morin Primary Care Provider: Alla Tyson Code Status: Attempt Resuscitation Condition at Discharge: Stable Discharge Disposition: SNF DC/Xfer Discharge Facility Name: [facility] - DIAGNOSES Admission Diagnoses: Bilateral inguinal hernia Perforated abdominal viscus Septic shock Acute kidney injury Hypokalemia Anasarca Discharge Diagnoses with Status of Each Condition: Bilateral inguinal hernia: Acute. Status post repair Perforated abdominal viscus: Acute. Status post repair with colostomy Septic shock: Acute. Resolved. Secondary to perforated viscus Acute kidney injury: Acute. Resolved Hypokalemia: Acute. Resolved Anasarca: Acute. Secondary to aggressive IV hydration for septic shock. Imp roving. Continue Lasix for 7 more days upon discharge. - HPI History of Present Illness: Per HPI: "Pleasant 66 year old lady I met 3 weeks ago when she presented to the ED with an incarcerated right inguinal hernia causing bowel obstruction. She had an uneventful repair but did not keep her post operative follow up appointment. She says she has been very constipated for the last several days. She took Miralax yesterday and is unable to tell me when the last normal bowel movement occurred. She says she has has just a few little bits out today. She was pushing very hard to have a bowel movement when she felt a pop associated with pain and a bulge in the right groin. This brought her to the ED. She says her groin is not hurting now but it was painful for a few minutes after the event. She is most concerned about the discomfort she feels from the constipation. She has dealt with constipation in the past but not to this degree. She says this is a new experience for her" She was admitted to the [facility] floor and started on empiric antibiotics which included Vancomycin, cefepime and Flagyl IV. Plan was to observe to see her clinical progression/conservative management and pain management. Hospitalist team was also consulted for medical management. After 5 days of hospital stay she had a CT scan of the abdomen/pelvis repeated to evaluate for abscess. This showed worsening pneumoperitoneum and ascites most definitely consistent with an infection. She was taken to the OR on 08/09/2021 and underwent an exploratory laparotomy with sigmoid colectomy, end colostomy and Funk's pouch. She was treated in the ICU after her surgery for severe sepsis related to the perforation. The above-mentioned antibiotics were continued. She also received aggressive IV hydration. She had significant anasarca as a result of IV hydration for sepsis. She was placed on Lasix IV with positive results of diuresis. Her potassium was replaced accordingly due to hypokalemia as a result of Lasix administration. In the course of the hospital stay she had an ileus which improved/resolved. She was taken back to the OR for wound closure on 08/25/21 Her highest white blood cell count was 33.5 on 08/10/21. This steadily improved over the course of her hospital stay and by 08/28/21 her white blood cell count was normal. On the day of discharge her white blood cell count was 10.2. She remained afebrile for at least 5 days prior to discharge. 24 hours before discharge all antibiotics were discontinued. The patient continued to be afebrile with normal white blood cell count. She was ambulating around the [facility] using a walker. She was able to tolerate oral intake with no difficulties. She received training on managing her colostomy bag. She was discharged to [facility] on 08/30/2021 For rehabilitation. She was prescribed 7 days worth of Lasix 40 mg p.o. daily. She was also advised to continue taking a baby aspirin daily. This was because her platelet count was 606 on the day of discharge. This was suspected to be reactive. She is expected to follow-up with general surgery in the outpatient setting as planned. She is also expected to follow-up with her primary care physician within 7 days or as needed. - ALLERGIES Allergies/Adverse Reactions: Allergies Allergy/AdvReac Type Severity Reaction Status Date / Time egg Allergy Severe Anaphylaxis Verified 08/04/21 10:57 - MEDICATIONS Home Medications: Ambulatory Orders Medication Instructions Recorded Confirmed Albuterol Sulf [Ventolin Hfa 2 puffs INH Q4H PRN 06/12/16 08/04/21 Inhaler] Aspirin 81 mg PO DAILY 06/12/16 08/04/21 lisinopriL [Lisinopril] 20 mg PO DAILY 06/12/16 08/04/21 polyethylene glycoL 3350 [Miralax] 17 gm PO DAILY 08/04/21 08/04/21 Furosemide [Lasix] 40 mg PO DAILY #7 tablet 08/30/21 oxyCODONE [Roxicodone] 5 mg PO Q4HR PRN #20 tablet 08/30/21 - PHYSICAL EXAM AT DISCHARGE General Appearance: positive: Alert, Moderate distress Eyes Bilateral: positive: PERRL, EOMI ENT: positive: No signs of dehydration Neck: positive: No JVD, Trachea midline Respiratory: positive: Chest non-tender, No respiratory distress, Breath sounds nml. negative: Wheezes, Rales, Rhonchi Cardiovascular: positive: Regular rate & rhythm, No murmur Abdomen: positive: Non-tender, Nml bowel sounds, Other (Colostomy bag in place and intact.). negative: Guarding, Rebound Back: positive: Nml inspection Skin: positive: Color nml, No rash, Warm, Dry Extremities: positive: Non-tender, Pedal edema (3+. Improving) Neurologic/Psychiatric: positive: Oriented x3, Mood/affect nml - LABS Result Diagrams: 08/30/21 04:30 08/30/21 04:30 - SEPSIS Current Stage of Sepsis: Resolved Possible source of Sepsis: GI tract/intra-abdominal Sepsis Criteria: Recorded Heart Rate greater than 90 bpm, WBC count greater than 10% bands, WBC count greater than 12,000 or less than 4000, Metabolic: lactate > 2 mmol/L - TIME SPENT Time Spent in Discharge (Minutes): 25
--- NOTE | 2021-08-30 09:25 | PROVIDER PROGRESS NOTE ---
Subjective - General Admit Date: 08/04/21 Procedure Date: 08/26/21 Post Op Days: 4 Procedure Performed: Laparotomy with Kenneth procedure; Wound closure - Review of Systems Wound/Incisions: positive: Healing well (Open wound is approximated. Only serous drainage on the packing. Inferor drain site with approx 5 mls of purulent fluid when the packing is removed. No erythema of the surrounding skin.) Drain Type: Mo Drain Output Description: Serous General: positive: Weakness HEENT: positive: No symptoms Pulmonary: negative: Shortness of breath Cardiovascular: positive: No symptoms Gastrointestinal: positive: Abdominal pain. negative: Nausea, Vomiting Genitourinary: positive: No symptoms Skin: positive: Other (Still frustrated about the swelling) All Other Systems: positive: Reviewed and negative - Other Other Information/Narrative: Bright and ready to go this morning. She is afebrile and her WBCs remain normal. Pain is minimal now and she is working with PT and walking under her own power. Objective - Patient Data Reviewed Vital Signs: Yes Vital Signs: Vital Signs x48h Temp Pulse Pulse Resp BP Pulse Ox 08/30/21 07:59 36.7 C 94 20 109/63 100 08/30/21 07:30 97 16 Weight: Weight 08/28/21 08/29/21 08/30/21 23:59 23:59 23:59 Weight (kg) 89 kg 87 kg Intake & Output: Intake and Output Totals x24h 08/28/21 08/29/21 08/30/21 23:59 23:59 23:59 Intake Total 2430 1030 360 Output Total 2300 2400 300 Balance 130 -1370 60 - Lab Results Lab Results: 08/30/21 04:30 08/30/21 04:30 Other Lab Results: Lab Results x24hrs 08/30/21 08/30/21 Range/Units 04:30 04:30 WBC 10.2 (4.8-10.8) x10^3/uL RBC 3.15 L (4.20-5.40) 10^6/uL Hgb 9.1 L (12.0-16.0) g/dL Hct 29.4 L (37.0-47.0) % MCV 93.3 (81.0-99.0) fL MCH 28.9 (27.0-31.0) pg MCHC 31.0 L (32.0-36.0) g/dL RDW 14.5 (12.0-15.0) % Plt Count 606 H (130-450) 10^3/uL MPV 8.4 (7.9-10.8) fL Neut # (Auto) 8.0 H (1.5-6.6) 10^3/uL Lymph # (Auto) 1.1 L (1.5-3.5) 10^3/uL [place] # (Auto) 0.6 (0.0-1.0) 10^3/uL Eos # (Auto) 0.4 (0.0-0.7) 10^3/uL Baso # (Auto) 0.1 (0.0-0.1) 10^3/uL Absolute Nucleated RBC 0.00 x10^3/uL Nucleated RBC % 0.0 /100WBC Sodium 137 (135-145) mmol/L Potassium 4.1 (3.5-5.0) mmol/L Chloride 96 L (101-111) mmol/L Carbon Dioxide 31 (21-32) mmol/L Anion Gap 10.0 (6-13) BUN 10 (6-20) mg/dL Creatinine 0.5 (0.4-1.0) mg/dL Estimated GFR (MDRD) 123 (>89) Glucose 95 (70-100) mg/dL Calcium 8.5 (8.5-10.3) mg/dL Magnesium 1.8 (1.7-2.8) mg/dL - Current Medications Current Medications: Current Medications Generic Name Dose Route Start Last Admin Trade Name Jetq PRN Reason Stop Dose Admin Acetaminophen 650 mg 08/04/21 14:01 08/30/21 01:54 Acetaminophen 325 Mg Tablet PO 650 mg Q4HR PRN Administration PAIN Albuterol 2.5 mg 08/04/21 17:26 08/30/21 07:30 Albuterol Neb 2.5 Mg/3 Ml INH 2.5 mg RTQ4H PRN Administration Wheezing Albuterol 2.5 mg 08/15/21 22:00 08/30/21 06:23 Albuterol Neb 2.5 Mg/3 Ml INH Not Given TID INGA Budesonide 0.5 mg 08/21/21 19:00 08/30/21 07:30 Budesonide 0.5 Mg/2 Ml Neb INH 0.5 mg RTBID INGA Administration Clotrimazole 10 mg 08/24/21 22:00 08/30/21 08:43 Clotrimazole 10 Mg Lozenge MM 08/31/21 21:59 10 mg 5XD INGA Administration Formoterol Fumarate 20 mcg 08/21/21 19:00 08/30/21 07:30 Formoterol Fumarate Neb 20 Mcg/2 Ml INH 20 mcg RTBID INGA Administration Furosemide 40 mg 08/27/21 06:00 08/30/21 05:46 Furosemide 40 Mg/4 Ml Vial IVP 40 mg 0600,1200 INGA Administration Heparin Sodium (Beef Lung) 30 - 50 unit 08/25/21 15:36 08/29/21 18:28 Heparin Flush 50 Units/5 Ml Syringe IVP 150 unit PRN PRN Administration Port Protocol (<24 hours) Metoclopramide HCl 5 mg 08/22/21 11:35 08/22/21 17:26 Metoclopramide 10 Mg/2 Ml Vial IVP 5 mg Q6HR PRN Administration Nausea / Vomiting Metoprolol Tartrate 25 mg 08/20/21 21:00 08/30/21 08:43 Metoprolol Tartrate 25 Mg Tablet PO 25 mg BID INGA Administration Mineral Oil 1 applic 08/07/21 17:17 08/25/21 20:41 Min Oil/Dimethicon/Coconut Oil 92 Gm Tube TOP 1 applic PRN PRN Administration Skin Care Multivitamins/Minerals 1 tab 08/27/21 11:00 08/30/21 08:43 Multivitamin W/Minerals Tablet PO 1 tab DAILYWM INGA Administration Oxycodone HCl 5 mg 08/19/21 11:04 08/30/21 06:15 Oxycodone 5 Mg Tablet PO 5 mg Q4HR PRN Administration PAIN Pantoprazole Sodium 40 mg 08/05/21 07:00 08/30/21 05:46 Pantoprazole 40 Mg Tablet PO 40 mg QDAC INGA Administration Polyethylene Glycol 17 gm 08/16/21 21:00 08/30/21 08:43 Polyethylene Glycol 3350 17 Gm Packet PO 17 gm BID INGA Administration Sodium Chloride 10 ml 08/04/21 17:00 08/30/21 05:46 Sodium Chloride Flush 0.9% 10 Ml Syringe IVP 10 ml 0100,0900,1700 INGA Administration Sodium Chloride 10 ml 08/04/21 14:01 08/30/21 05:46 Sodium Chloride Flush 0.9% 10 Ml Syringe IVP 10 ml PRN PRN Administration NEEDED PER PROVIDER ORDERS - Physical Exam Wound/Incisions: positive: Healing well, Other (LLQ wound continues to drain purulent fluid) General Appearance: positive: No acute distress, Alert Eyes Bilateral: positive: Normal inspection Respiratory: positive: Chest non-tender, No respiratory distress Cardiovascular: positive: Regular rate & rhythm Abdomen: positive: Nml bowel sounds, Tenderness. negative: Guarding, Rebound Skin: positive: Color nml Extremities: positive: Non-tender Neurologic/Psychiatric: positive: Oriented x3 ABX Reporting Has patient been on IV antibiotics over the past 48 hours?: Yes Impression/Plan - Problem List Problem List: Slow but steady improvement. She is cleared for discharge to SNF. Her midline and left lower quadrant wounds need to be painted with betadine twice daily and covered with dry gauze. This should be done at least twice daily and as often and needed to keep them clean. Follow up with me in 2 weeks.
[2021-08-30 10:39] LABS: B. PARAPERTUSSIS- RESP PCR PAN NOT DETECTED; B. PERTUSSIS- RESP PCR PANEL NOT DETECTED; C. PNEUMONIAE- RESP PCR PANEL NOT DETECTED; CORONAVIRUS 229E-RESP PCR NOT DETECTED; CORONAVIRUS HKU1-RESP PCR NOT DETECTED; CORONAVIRUS NL63-RESP PCR NOT DETECTED; CORONAVIRUS OC43-RESP PCR NOT DETECTED; HUMAN METAPNEUMOVIRUS NOT DETECTED; INFLUENZA A- RESP PCR PANEL NOT DETECTED; INFLUENZA B - RESP PCR PANEL NOT DETECTED; M. PNEUMONIAE- RESP PCR PANEL NOT DETECTED; PARAINFLUENZA VIRUS 1 NOT DETECTED; PARAINFLUENZA VIRUS 2 NOT DETECTED; PARAINFLUENZA VIRUS 3 NOT DETECTED; PARAINFLUENZA VIRUS 4 NOT DETECTED; RHINOVIRUS/ENTEROVIRUS NOT DETECTED; RSV- RESP PCR PANEL NOT DETECTED; SARS-CoV-2 -RESP PCR PANEL NOT DETECTED
[2021-08-30 13:54] VITALS: BP 118/65
== END 2021-08-30 14:38 | DRG 329 ==
LOC: EDUNIT# → ED 10:50 → MS3 16:22 → ICU 08-09 20:02 → MS2 08-11 21:19
PROVIDERS: ADMIT Surgery; ATTEND Internal Medicine
PROC: 3E0336Z Introduction of Nutritional Substance into Peripheral Vein, Percutaneous Approach (ICD-10-PCS; 2021-08-08)
PROC: 0D1N0Z4 Bypass Sigmoid Colon to Cutaneous, Open Approach (ICD-10-PCS; 2021-08-09)
PROC: 0DC Gastrointestinal System, Extirpation (ICD-10-PCS; 2021-08-09)
PROC: 0DTN0ZZ Resection of Sigmoid Colon, Open Approach (ICD-10-PCS; principal; 2021-08-09 16:30)
PROC: 2W13X6Z Compression of Abdominal Wall using Pressure Dressing (ICD-10-PCS; 2021-08-15)
PROC: 0WQF0ZZ Repair Abdominal Wall, Open Approach (ICD-10-PCS; 2021-08-26)
DX: K63.1 Perforation of intestine (nontraumatic) (principal); K40.21 Bilateral inguinal hernia, without obstruction or gangrene, recurrent; K59.09 Other constipation; K57.20 Diverticulitis of large intestine with perforation and abscess without bleeding; A41.51 Sepsis due to Escherichia coli [E. coli]; R65.21 Severe sepsis with septic shock; N17.9 Acute kidney failure, unspecified; R18.8 Other ascites; K56.691 Other complete intestinal obstruction; K91.89 Other postprocedural complications and disorders of digestive system; K56.7 Ileus, unspecified; J90 Pleural effusion, not elsewhere classified; T82.594A Other mechanical complication of infusion catheter, initial encounter; K56.41 Fecal impaction; E87.6 Hypokalemia; I10 Essential (primary) hypertension; Z87.440 Personal history of urinary (tract) infections; K40.91 Unilateral inguinal hernia, without obstruction or gangrene, recurrent; K40.90 Unilateral inguinal hernia, without obstruction or gangrene, not specified as recurrent; E78.5 Hyperlipidemia, unspecified; M06.9 Rheumatoid arthritis, unspecified; Z20.822 Contact with and (suspected) exposure to COVID-19; I48.91 Unspecified atrial fibrillation; R73.9 Hyperglycemia, unspecified; J45.909 Unspecified asthma, uncomplicated; R60.1 Generalized edema; I95.9 Hypotension, unspecified; E66.9 Obesity, unspecified; Z68.34 Body mass index [BMI] 34.0-34.9, adult
CPT/HCPCS: 36415; 71045; 74177; 80048; 80053; 80202; 81001; 82040; 82803; 83036; 83605; 83690; 83735; 84100; 84132; 84134; 84443; 84478; 84484; 85025; 85027; 85610; 86900; 86901; 87040; 87070; 87181; 87205; 87631; 93005; 93306; 93970; 94640; 96365; 96375; 96376; 97110; 97116; 97162; 97166; 97530; 99284; 99285; A6250; A9270; J1170; J1650; J1815; J2765; J2997; J3370; J3490; J7120; J7626; P9017; P9047; Q9967; 0202U; 87086

== ENCOUNTER 2021-10-08 08:00 | Outpatient (CLI) | payer MEDICARE, OTHER | END 2021-10-08 23:59 | LOC: LAB.R 08:00 | PROVIDERS: ATTEND Surgery | DX: T81.89XA Other complications of procedures, not elsewhere classified, initial encounter (principal) | CPT/HCPCS: 87070; 87205 ==